=== PATIENT | female | born 1990 | race Caucasian/White ===

== ENCOUNTER 2023-03-23 09:37 | Outpatient (OUT) | payer BC, SELFPAY ==
--- NOTE | 2023-03-23 | XR_ITS ---
The [address] [address] Patient Name: MATT RICKS MRN: [id number] date: 1990 Sex: F Assigned Patient Location: [facility] Current Patient Location: [facility] Accession/Order Number: [id number] Exam Date: 03/23/2023 10:03 Report Date: 03/23/2023 21:36 At the request of: [facility] Procedure: XR foot RT min 3V EXAM: XR ankle RT min 3V, XR foot RT min 3V HISTORY: RIGHT ANKLE PAIN COMPARISON: None. TECHNIQUE: 4 views right foot and 3 views right ankle FINDINGS: There is generalized soft tissue swelling about the ankle. The tibiotalar joint is congruent without large osteochondral defect. No acute fracture at the ankle or the foot. Joint alignment is preserved. Prominent plantar fascia and Achilles tendon enthesophytes are noted. Calcaneal pitch is approximately 10 degrees. XR/XR foot RT min 3V IMPRESSION: No acute osseous abnormality of the right foot or ankle. Pes planus with prominent plantar fascia and Achilles tendon enthesophytes. Electronically authenticated by: NAVJOT SWAN Date: 03/23/2023 21:36
--- NOTE | 2023-03-23 | XR_ITS ---
The [address] [address] Patient Name: MATT RICKS MRN: [id number] date: 1990 Sex: F Assigned Patient Location: [facility] Current Patient Location: [facility] Accession/Order Number: [id number] Exam Date: 03/23/2023 10:03 Report Date: 03/23/2023 21:36 At the request of: [facility] Procedure: XR ankle RT min 3V EXAM: XR ankle RT min 3V, XR foot RT min 3V HISTORY: RIGHT ANKLE PAIN COMPARISON: None. TECHNIQUE: 4 views right foot and 3 views right ankle FINDINGS: There is generalized soft tissue swelling about the ankle. The tibiotalar joint is congruent without large osteochondral defect. No acute fracture at the ankle or the foot. Joint alignment is preserved. Prominent plantar fascia and Achilles tendon enthesophytes are noted. Calcaneal pitch is approximately 10 degrees. XR/XR ankle RT min 3V IMPRESSION: No acute osseous abnormality of the right foot or ankle. Pes planus with prominent plantar fascia and Achilles tendon enthesophytes. Electronically authenticated by: NAVJOT SWAN Date: 03/23/2023 21:36
== END 2023-03-23 09:38 | disposition home or self-care (01) ==
LOC: RAD 09:38
PROVIDERS: Visit Provider Physician Assistant
DX: M25.571 Pain in right ankle and joints of right foot (principal)
CPT/HCPCS: 73610; 73630

== ENCOUNTER 2023-04-17 07:33 | Outpatient (OUT) | payer BC, SELFPAY ==
--- NOTE | 2023-04-17 | XR_ITS ---
The [address] [address] Patient Name: MATT RCIKS MRN: [id number] date: 1990 Sex: F Assigned Patient Location: [facility] Current Patient Location: [facility] Accession/Order Number: [id number] Exam Date: 04/17/2023 07:54 Report Date: 04/17/2023 09:37 At the request of: ALANAN FRANCOIS Procedure: XR abdomen 1V EXAM: XR abdomen 1V. HISTORY: Kidney Stone. COMPARISON: CT abdomen and CT pelvis studies dated 04/15/2022. TECHNIQUE: AP supine view of the abdomen was obtained. FINDINGS: No obvious opaque renal, ureteral or bladder calculus. Bowel gas pattern is grossly nonspecific. Bony structures appear grossly intact. XR/XR abdomen 1V IMPRESSION: No obvious opaque calculus. Previously noted small 2 mm calculus in the right kidney not convincingly demonstrated which is nonspecific, possibly a noncalcified calculus. Electronically authenticated by: JENNIFFER MELVIN Date: 04/17/2023 09:37
== END 2023-04-17 07:34 | disposition home or self-care (01) ==
PROVIDERS: PCP Nurse Practitioner; Visit Provider Urology
DX: N20.0 Calculus of kidney (principal)
CPT/HCPCS: 74018

== ENCOUNTER 2023-08-08 08:00 | Outpatient (OUT) | payer BC, SELFPAY ==
--- OUTSIDE RECORDS SUMMARY | 2023-08-08 08:04 | XMS_ITS | CCD ---
Author Organization [facility] Care Team Providers Care Building Energy Consultant Name Role Phone Luciana Flores Unavailable Dustin Imtiaz B Unavailable MONICA TORRES Attending Unavailable BRIANNA TREJO Referring Unavailable MONICA TORRES Attending Unavailable MONICA TORRES Referring Unavailable AICHHOLZ, URSULA J Primary Care Physician BON, DR KIRTI Felton Consulting Unavailable BON, DR KIRTI Felton Attending Unavailable AICHHOLZ, OBSERVER GRAVITY PROSPECTING URSULA Primary Care Unavailable BON, DR KIRTI Felton Admitting Unavailable LUDMILA WINKLER Consulting Unavailable AICHHOLZ, OBSERVER GRAVITY PROSPECTING URSULA Primary Care Unavailable PAY ., DR ANDERSON Consulting Unavailable PAY ., DR ANDERSON Attending Unavailable PAY ., DR ANDERSON Admitting Unavailable AICHHOLZ, OBSERVER GRAVITY PROSPECTING URSULA Primary Care Unavailable ANGELA ., DR MONDRAGON Consulting Unavailable ANGELA ., DR MONDRAGON Attending Unavailable ANGELA ., DR MONDRAGON Admitting Unavailable AICHHOLZ, OBSERVER GRAVITY PROSPECTING URSULA Attending Unavailable AICHHOLZ, OBSERVER GRAVITY PROSPECTING URSULA Admitting Unavailable AICHHOLZ, OBSERVER GRAVITY PROSPECTING URSULA Primary Care Unavailable AICHHOLZ, OBSERVER GRAVITY PROSPECTING URSULA Consulting Unavailable AICHHOLZ, OBSERVER GRAVITY PROSPECTING URSULA Primary Care Unavailable ANGELA ., DR MONDRGAON Consulting Unavailable ANGELA ., DR MONDRAGON Attending Unavailable ANGELA ., DR MONDRAGON Admitting Unavailable DORIE, DR BORIS Dave Consulting Unavailable AICHHOLZ, OBSERVER GRAVITY PROSPECTING URSULA Attending Unavailable AICHHOLZ, OBSERVER GRAVITY PROSPECTING URSULA Admitting Unavailable AICHHOLZ, OBSERVER GRAVITY PROSPECTING URSULA Primary Care Unavailable AICHHOLZ, OBSERVER GRAVITY PROSPECTING URSULA Consulting Unavailable Ismael Iqbal Consulting Unavailable AICHHOLZ, OBSERVER GRAVITY PROSPECTING URSULA Attending Unavailable AICHHOLZ, OBSERVER GRAVITY PROSPECTING URSULA Admitting Unavailable AICHHOLZ, OBSERVER GRAVITY PROSPECTING URSULA Primary Care Unavailable AICHHOLZ, OBSERVER GRAVITY PROSPECTING URSULA Consulting Unavailable AICHHOLZ, OBSERVER GRAVITY PROSPECTING URSULA Attending Unavailable AICHHOLZ, OBSERVER GRAVITY PROSPECTING URSULA Admitting Unavailable AICHHOLZ, OBSERVER GRAVITY PROSPECTING URSULA Primary Care Unavailable AICHHOLZ, OBSERVER GRAVITY PROSPECTING URSULA Consulting Unavailable KARASIK ., DR FAIRBANKS Consulting Unavailabl e KARASIK ., DR FAIRBANKS Attending Unavailabl e AICHHOLZ, OBSERVER GRAVITY PROSPECTING URSULA Primary Care Unavailable KARASIK ., DR FAIRBANKS Admitting Unavailabl e AICHHOLZ, OBSERVER GRAVITY PROSPECTING URSULA Admitting Unavailable AICHHOLZ, OBSERVER GRAVITY PROSPECTING URSULA Primary Care Unavailable AICHHOLZ, OBSERVER GRAVITY PROSPECTING URSULA Consulting Unavailable AICHHOLZ, OBSERVER GRAVITY PROSPECTING URSULA Attending Unavailable Raj West Attending UnavailRaj Gage Admitting Unavailabl e NO FAMILY, PHYSICIAN Primary Care Unavailable Audi ANGELA Attending Unavailable Audi ANGELA Attending Unavailable ADA SELF Attending Unavailable AICLAMAR, URSULA Attending Unavailable Allergies Allergy Classification Reported Allergen(s) Allergy Type Date of Onset Reaction(s) Facility (7 sources) [facility]; Translations: [STRAWBERRIES] Food Intolerance 12-31-19 Hives, Eruption of skin (disorder) [facility] (3 sources) Penicillin; Translations: [penicillin] Drug Allergy 04-12-20 Unknown (qualifier value) [facility] (1 source) Penicillin V Drug Allergy rash [place] Other (1 source) strawberry allergenic extract Drug Allergy [facility] Repository Medications Current Medications Medication Drug Class(es) Dates Sig (Normalized) Sig (Original) brompheniramine maleate 0.4 mg/ml / dextromethorphan hydrobromide 2 mg/ml / pseudoephedrine hydrochloride 6 mg/ml oral solution (1 source) alpha-Adrenergic Agonist, Uncompetitive H-arhfhu-A-aspartate Receptor Antagonist, Sigma-1 Agonist Start: 04-08-2022 take 10 mL by mouth every six hours Pseudoeph-Bromp hen-DM 30-2-10 MG/5ML 10 mL Orally every 6 hours for 5 days Apr, Active dextromethorphan hydrobromide 1.5 mg/ml / pyrilamine maleate 1.5 mg/ml oral solution (1 source) Uncompetitive S-wjqquf-V-aspartate Receptor Antagonist, Sigma-1 Agonist Start: 08-27-2021 take 10 mL by mouth every eight hours [place] DM 7.5-7.5 MG/5ML 10 mL Orally every 8 hours for 5 days Aug, Active fluticasone propionate 0.05 mg/actuat metered dose nasal spray (1 source) Corticosteroid Start: 08-27-2021 take 1 spray(s) nasal route once daily Flonase Allergy Relief 50 MCG/ACT 1 spray in each nostril Nasally Once a day for 14 day(s) Aug, Active letrozole 2.5 mg oral tablet (3 sources) Aromatase Inhibitor Start: 01-14-2022 End: 01-19-2022 letrozole (FEMARA) 2.5 mg tablet Take 2 tablets by mouth as directed for 5 days. days 3-7 10 tablet 5 01/14/2022 01/19/2022 Active Comment on above: Take 2 tablets by mo ut as directed for 5 days. days 3-7 24 hr metFORMIN hydrochloride 750 mg extended release oral tablet (5 sources) Biguanide Start: 04-04-2022 take 1 mg by mouth once daily metformin 750 mg ER Tab mg tab(s), Oral, Daily, Refills(s) 0 Start Date: 04/04/22 Status: Ordered Start: 01-14-2022 take 2 tablets by mo ut once daily at breakfast metFORMIN ER (GLUCOPHAGE XR) 750 mg 24 hr tablet Take 2 tablets by mouth daily with breakfast. 90 tablet 3 01/14/2022 Active metFORMIN HCl Ac tive Comment on above: Take 2 tablets by mo ut daily with breakfast. mupirocin 0.02 mg/mg topical ointment (1 source) RNA Synthetase Inhibitor Antibacterial Start: 02-03-2020 Mupirocin 2 % 1 application to affected area Externally 2 times a day for 7 days Jan, Active (2 sources) Active Spironolactone (1 source) Aldosterone Antagonist Spironola ctone Active Completed/Discontinued Medications Medication Drug Class(es) Dates Sig (Normalized) Sig (Original) medroxyPROGESTERone acetate 10 mg oral tablet (3 sources) Progestin Start: 2 take 1 tablet by mouth once daily medroxyPROGESTERone (PROVERA) 10 mg tablet Take 1 tablet by mouth once daily. 10 tablet 0 01/14/2022 Active Comment on above: Take 1 tablet by jesus th once daily. naproxen 500 mg oral tablet (1 source) Nonsteroidal Anti-inflammator y Drug Start: 2 take 1 tablet by mouth every twelve hours for pain naproxen 500 mg Tab 60 EA, take 1 tablet by mouth every 12 hours if needed for pain with food, Refills(s) 0 Start Date: 04/04/22 Status: Ordered PNV no.95/ferrous fum/folic ac ( ORAL) (4 sources) PNV no.95/ferrou s fum/folic ac ( ORAL) Take by mouth. 0 Active Comment on above: Take by mouth. Plus Low Iron oral tablet (1 source) Start: 2 take 1 tablet by mouth once daily Plus Low Iron oral tablet Refill(s) 0, 30 EA, take 1 tablet by mouth once daily Start Date: 04/04/22 Status: Ordered Problems Active Problems Problem Classification Problem Date Documented Da te Episodic/Chronic Diabetes mellitus without complication (1 source) Prediabetes 04-04-2022 Episodic Essential hypertension (1 source) Essential (primary) hypertension; Translations: [ESSENTIAL PRIMARY HYPERTENSION] Onset: 11-23-2021 Chronic Female infertility (1 source) Female infertility 04-04-2022 Chronic Headache; including migraine (1 source) Headache; including migraine; Translations: [HEADACHE UNSPECIFIED] Onset: 05-23-2022 Menstrual disorders (4 sources) Primary amenorrhea; Translations: [Primary amenorrhea] Onset: 12-30-2021 Chronic Nonmalignant breast conditions (4 sources) Abscess of the breast and nipple; Translations: [ABSCESS OF THE BREAST AND NIPPLE] Onset: 08-31-2022 Episodic Other endocrine disorders (1 source) Polycystic ovary syndrome 04-04-2022 Chronic Other nutritional; endocrine; and metabolic disorders (1 source) Other obesity due to excess calories; Translations: [OTHER OBESITY D/T EXCESS CALORIES] Onset: 11-23-2021 Chronic Other nutritional; endocrine; and metabolic disorders (1 source) Body mass index (BMI) 50.0-59.9, adult; Translations: [BODY MASS INDEX BMI 50.0-59.9 ADULT] Onset: 11-23-2021 Chronic Residual codes; unclassified (3 sources) Family history of kidney disease; Translations: [Family history of disorders of kidney and ureter] Onset: 04-04-2022 Episodic Residual codes; unclassified (1 source) Family history of renal stone 04-04-2022 Episodic Spondylosis; intervertebral disc disorders; other back problems (1 source) Low back pain 04-04-2022 Episodic Unclassified (1 source) Asymptomatic microscopic hematuria 04-04-2022 Unclassified (1 source) CONTACT W/AND (SUSP) EXPOS COVID-19; Translations: [CONTACT W/AND (SUSP) EXPOS COVID-19] Onset: 05-23-2022 Unclassified (1 source) H54.61 - Unqualified visual loss, right eye, normal vision left eye; Translations: [H54.61 - Unqualified visual loss, right eye, normal vision left eye] Onset: 09-11-2020 Viral infection (1 source) Verruca vulgaris 04-04-2022 Episodic Past or Other Problems Problem Classification Problem Date Documented Date Episodic/Chronic Calculus of urinary tract (1 source) Calculus of kidney; Translations: [CALCULUS OF KIDNEY] Onset: 04-21-2022 Episodic Fluid and electrolyte disorders (1 source) Dehydration; Translations: [DEHYDRATION] Onset: 05-23-2022 Episodic Genitourinary symptoms and ill-defined conditions (9 sources) Microscopic hematuria; Translations: [Asymptomatic microscopic hematuria] Onset: 04-04-2022 Episodic Immunizations and screening for infectious disease (2 sources) Contact with and (suspected) exposure to other viral communicable diseases; Translations: [Encounter for screening for human papillomavirus (HPV)] Onset: 08-27-2021 Resolved: 08-27-2021 Episodic Nausea and vomiting (4 sources) Nausea with vomiting, unspecified; Translations: [NAUSEA WITH VOMITING UNSPECIFIED] Onset: 05-13-2022 Episodic Nonspecific chest pain (4 sources) Chest pain, unspecified; Translations: [CHEST PAIN UNSPECIFIED] Onset: 11-22-2021 Episodic Other aftercare (1 source) Other senior living (current) drug therapy; Translations: [OTH SNF CURRENT DRUG THERAPY] Onset: 05-23-2022 Episodic Other aftercare (1 source) group home (current) use of oral hypoglycemic drugs; Translations: [CARPENTER'S ASSISTANT USE ORAL HYPOGLYCEMIC DX] Onset: 05-23-2022 Episodic Other screening for suspected conditions (not mental disorders or infectious disease) (4 sources) Encounter for screening for malignant neoplasm of cervix; Translations: [ENC SCREENING MALIG NEOPLASM CERV] Onset: 10-19-2021 Episodic Other upper respiratory infections (1 source) Acute upper respiratory infection, unspecified Onset: 08-27-2021 Resolved: 08-27-2021 Episodic Residual codes; unclassified (4 sources) Other specified health status; Translations: [OTHER SPECIFIED HEALTH STATUS] Onset: 11-30-2021 Episodic Screening and history of mental health and substance abuse codes (1 source) Personal history of nicotine dependence; Translations: [PERSONAL HISTORY OF NICOTINE DEPEND] Onset: 04-21-2022 Episodic Unclassified (1 source) Cough R05.9 Viral infection (1 source) COVID-19 Results Test Name Value Interpretation Reference Range Facility Patient Educationon 04-21-20 23 Patient Education Urology Hematuria, Adult Hematuria is blood in the urine. Blood may be visible in the urine, or it may be identified with a test. This condition can be caused by infections of the bladder, urethra, kidney, or prostate. Other possible causes include: ? Kidney stones. ? Cancer of the urinary tract. ? Too much calcium in the urine. ? Conditions that are passed from parent to child (inherited conditions). ? Exercise that requires a lot of energy. Infections can usually be treated with medicine, and a kidney stone usually will pass through your urine. If neither of these is the cause of your hematuria, more tests may be needed to identify the cause of your symptoms. It is very important to tell your health care provider about any blood in your urine, even if it is painless or the blood stops without treatment. Blood in the urine, when it happens and then stops and then happens again, can be a symptom of a very serious condition, including cancer. There is no pain in the initial stages of many urinary cancers. Follow these instructions at home: Medicines ? Take asid-dyc-fodvzps and prescription medicines only as told by your health care provider. ? If you were prescribed an antibiotic medicine, take it as told by your health care provider. Do not stop taking the antibiotic even if you start to feel better. Eating and drinking ? Drink enough fluid to keep your urine pale yellow. It is recommended that you drink 3?4 quarts (2.8?3.8 L) a day. If you have been diagnosed with an infection, drinking cranberry juice in addition to large amounts of water is recommended. ? Avoid caffeine, tea, and carbonated beverages. These tend to irritate the bladder. ? Avoid alcohol because it may irritate the prostate (in males). General instructions ? If you have been diagnosed with a kidney stone, follow your health care provider's instructions about straining your urine to catch the stone. ? Empty your bladder often. Avoid holding urine for long periods of time. ? If you are female: ? After a bowel movement, wipe from front to back and use each piece of toilet paper only once. ? Empty your bladder before and after sex. ? Pay attention to any changes in your symptoms. Tell your health care provider about any changes or any new symptoms. ? It is up to you to get the results of any tests. Ask your health care provider, or the department that is doing the test, when your results will be ready. ? Keep all follow-up visits. This is important. Contact a health care provider if: ? You develop back pain. ? You have a fever or chills. ? You have nausea or vomiting. ? Your symptoms do not improve after 3 days. ? Your symptoms get worse. Get help right away if: ? You develop severe vomiting and are unable to take medicine without vomiting. ? You develop severe pain in your back or abdomen even though you are taking medicine. ? You pass a large amount of blood in your urine. ? You pass blood clots in your urine. ? You feel very weak or like you might faint. ? You faint. Summary ? Hematuria is blood in the urine. It has many possible causes. ? It is very important that you tell your health care provider about any blood in your urine, even if it is painless or the blood stops without treatment. ? Take dgun-bek-nqndqlz and prescription medicines only as told by your health care provider. ? Drink enough fluid to keep your urine pale yellow. This information is not intended to replace advice given to you by your health care provider. Make sure you discuss any questions you have with your health care provider. Document Revised: 12/23/2020 Document Reviewed: 12/23/2020 [employer] Patient Education ? 2022 [employer] Dennys [facility] Urology Office/Clinic Noteon 04-21-2023 Urology Office/Clinic Note Chief Complaint 1yr KUB HPI Staff 1yr KUB DX: Microscopic Hematuria & Fam Hx of Kidney Disease S/P Cysto 04/18/22 NEG CTU 04/15/22 KUB 04/17/23 Denies flank pain. Denies visible blood since last encounter. Denies all urinary symptoms. History of Present Illness Tests reviewed: reviewed UA and KUB, CTU I have reviewed the previous health record information and history for this patient from Dr. Angela. I have reviewed and verified the staff HPI to be accurate for this encounter. There have been no associated fever, chills, flank pain, or blood in the urine. Denies any urinary infections since last encounter. Review of Systems PHQ Score Initial Depression Screen Score: 0 SCORE ROS - Provider Constitutional: denies weight loss, denies hot flashes. Eyes: denies eye problems. Gastrointestinal: denies nausea, denies vomiting. Cardiovascular: denies chest pain or angina. Integumentary: no dryness Musculoskeletal: denies musculoskeletal symptoms. ENMT: denies otolaryngeal symptoms. Respiratory: no shortness of breath. Heme/Lymph: denies easy bleeding tendency, denies easy bruising tendency. Psychiatric: no confusion, no anxiety. Genitourinary: See HPI. Physical Exam Vitals & Measurements HR: 68(Peripheral) RR: 16 BP: 135/80 HT: 64 in HT: 163 cm WT: 136 kg WT: 299.2 lb BMI: 51.19 General Appearance: alert , no acute distress, well nourished, well developed female. Genitourinary: bladder nonpalpable, no flank pain. Assessment/Plan 1. Kidney stone (N20.0: Calculus of kidney) KUB done 01/17/22 shows no urinary tract calculi. CT Urogram 04/15/22 punctate 2 mm lower pole right nephrolith. No hydro. Current KUB 04/17/23 previously noted small 2 mm calculus in the right kidney not convincingly demonstrated which is nonspecific, possibly a noncalcified calculus. Family history of kidney stones. Discussed w/ pt there is a chance she may of passed the stone. Will repeat KUB in 1 year. Continue adequate hydration. 2. Asymptomatic microscopic hematuria (R31.21: Asymptomatic microscopic hematuria) UA 12/21/21 shows trace-lysed blood, 2-5 RBCs. UA 07/26/22 shows trace-intact blood, 2-5 RBCs. S/p cysto 04/18/22 neg for b.t. or lesions. Urine cytology 03/2022 negative. UA today negative. Denies visible blood in urine. 3. Family history of kidney disease (Z84.1: Family history of disorders of kidney and ureter) Pt's father has kidney disease and had a kidney transplant in October. Follow-up With When Contact Information ALESSANDRO EGAN, Audi [place], [address] [place] [address]- Additional Instructions: 1 yr w/ KUB Patient Education Hematuria, Adult I, Armida Moreira, personally scribed for Dr. Angela on 04/21/2023 10:37:39. . Documentation recorded by the scribe, Armida Moreira, accurately reflects the services(s) I performed and decisions made by me. Authenticated by Dr. Angela on 04/21/2023 10:39:54. Problem List/Past Medical History Ongoing Asymptomatic microscopic hematuria Family history of kidney disease Family history of kidney stones Female infertility Kidney stone Lumbar back pain Oligomenorrhea PCOS (polycystic ovarian syndrome) Pre-diabetes Verruca vulgaris Historical No qualifying data Procedure/Surgical History Cystoscopy (04/18/2023). Medications No active medications Allergies Strawberries (Rash) penicillin (Unknown) Social History Tobacco Former smoker, quit more than 30 days ago Tobacco Use:. Never Smokeless Tobacco Use:. Cigarettes, Household tobacco concerns: No. Yes, 04/21/2023 Family History Alcoholism: Sister. Hypertension: Mother and Father. Kidney disease: Father. Kidney stone: Sister. Migraine: Mother and Sister. Immunizations Vaccine Date Status Comments SARS-CoV-2 (COVID-19) mRNA BNT-162b2 vax 08/30/2020 Recorded 2022-04-04: TPVAL SARS-CoV-2 (COVID-19) mRNA BNT-162b2 vax 08/07/2020 Recorded 2022-04-04: TPVAL measles/mumps/rubella virus vaccine 09/21/2001 Recorded Lab Results Ambulatory Point of Care Results Bilirubin Urine Dipstick: Negative (04/21/23 09:54:00) Blood Urine Dipstick: Negative (04/21/23 09:54:00) Glucose Urine Dipstick: Negative (04/21/23 09:54:00) Ketones Urine Dipstick: Negative (04/21/23 09:54:00) Leukocytes Urine Dipstick: Negative (04/21/23 09:54:00) Nitrite Urine Dipstick: Negative (04/21/23 09:54:00) Protein Urine Dipstick: Trace (04/21/23 09:54:00) Specific Venus Urine Dipstick: >=1.030 (04/21/23 09:54:00) Urine Appearance Urine Dipstick: Clear (04/21/23 09:54:00) Urine Color Urine Dipstick: Yellow (04/21/23 09:54:00) Urobilinogen Urine Dipstick: Normal 0.2-1 EU/dl (04/21/23 09:54:00) pH Urine Dipstick: 6 (04/21/23 09:54:00) Normal [facility] Comment on above: Result Comment: Elec tronically Signed By: Audi ANGELA MD\.br\Date and Time Signed: 04/21/23 10:39 EST\.br\Electronically Co-Signed By: Armida Moreira\.br\Date and Time Co-Signed: 04/21/23 10:38 EST RAD - MISCon 04-19-2023 RAD - MISC [id number] Normal [facility] Covid-19 PCR (CVDTB)on 09-05 SARS-CoV-2 (COVID-19) RNA CRISTEL+probe Ql (Unsp spec) Not detected Normal NOT DETECTED [facility] Comment on above: Performed By: #### C VDAGS #### [facility] [address] [place] [address] Dr. Alexei Gonzales INFLUENZA A AND B AGon 09-20 INFLUANEGH SEE BELOW Normal [facility] Comment on above: Result Comment: Nega tive for Flu A protein angiten. Infection due to Flu A cannot be ruled out. Flu A angiten in the sample may be below the detection limit of the test. Performed By: #### I NFLUAB #### [facility] [address] [place] [address] Dr. Alexei Gonzales [facility] SEE BELOW Normal [facility] Comment on above: Result Comment: Nega tive for Flu B protein antigen. Infection due to Flu B cannot be ruled out. Flu B antigen in the sample may be below the detection limit of the test. Performed By: #### I NFLUAB #### [facility] [address] [place] [address] Dr. Alexei Gonzales INFLUENZA A AG Negative Normal NEGATIVE SEE COMMENT [facility] Comment on above: Performed By: #### I NFLUAB #### [facility] [address] [place] [address] Dr. Alexei Gonzales INFLUENZA B AG Negative Normal NEGATIVE SEE COMMENT [facility] Comment on above: Performed By: #### I NFLUAB #### [facility] [address] [place] [address] Dr. Alexei Gonzales SYMPTOMATIC COVID-19 ANTIGEN on 09-20-2022 EUA Statement SEE BELOW Normal [facility] Comment on above: Result Comment: This test has not been FDA cleared or approved, but has been authorized by the FDA under an Emergency Use Authorization (EUA) for use by authorized laboratories certified under CLIA that meet the requirements to perform moderate or high complexity testing. This test has been authorized only for the detection of proteins from SARS-CoV-2, not for any other viruses or pathogens. The emergency use of this test is authorized for the duration of the declaration that circumstances exist justifying the authorization of emergency use of in vitro diagnostic tests for detection and/or diagnosis of Covid-19 under section 564(b)(1) of the Act, 21 U.S.C. 360bbb-3(b)(1), unless the declaration is terminated or authorization is revoked sooner. Performed By: #### C VDAGS #### [facility] [address] [place] [address] Dr. Alexei Gonzales SARS-CoV-2 (COVID-19) RNA CRISTEL+probe Ql (Unsp spec) Negative Normal NEGATIVE [facility] Comment on above: Performed By: #### C VDAGS #### [facility] [address] [place] [address] Dr. Alexei Gonzales CULTURE WOUNDon 08-31-2022 CULTURE WOUND Culture Observations : ANAEROBE PRESENT. Isolate 1 Peptoniphilus lacrimalis Light growth of Normal [facility] Comment on above: Performed By: #### C VDAGS #### [facility] [address] [place] [address] Dr. Alexei Gonzales CBC AUTO DIFFon 05-13-2022 BASO # 0.1 103/ul Normal 0.0-0.1 [facility] Comment on above: Performed By: #### C BC #### [facility] [address] [place] [address] Dr. Alexei Gonzales Basophils/100 WBC (Bld) 0.7 % Normal 0.2-2.0 [facility] Comment on above: Performed By: #### C BC #### [facility] [address] [place] [address] Dr. Alexei Gonzales EO # 0.0 103/ul Normal 0.0-0.7 [facility] Comment on above: Performed By: #### C BC #### [facility] [address] [place] [address] Dr. Alexei Gonzales Eosinophils/100 WBC (Bld) 0.1 % Critically low 0.9-7.0 [facility] Comment on above: Performed By: #### C BC #### [facility] [address] [place] [address] Dr. Alexei Gonzales Erythrocyte distribution width (RBC) [Ratio] 14.6 % Normal 11.0-15.0 [facility] Comment on above: Performed By: #### C BC #### [facility] [address] [place], [place] [address] Dr. Alexei Gonzales Hematocrit (Bld) [Volume fraction] 38.5 % Normal 36.0-48.0 [facility] Comment on above: Performed By: #### C BC #### [facility] [address] [place] [address] Dr. Alexei Gonzales Hemoglobin (Bld) [Mass/Vol] 13.0 g/dL Normal 12.0-16.0 [facility] Comment on above: Performed By: #### C BC #### [facility] [address] [address] [address] Alexei Gonzales IG # 0.04 10e3/ul Critically high 0.00-0.03 [facility] Comment on above: Performed By: #### C BC #### [facility] [address] [address] [address] Alexei Gonzales IG % 0.5 % Normal 0.0-0.5 [facility] Comment on above: Performed By: #### C BC #### [facility] [address] [place] [address] Dr. Alexei Gonzales LYMPH # 0.3 103/ul Critically low 1.2-3.8 [facility] Comment on above: Performed By: #### C BC #### [facility] [address] [place] [address] Dr. Alexei Gonzales Lymphocytes/100 WBC (Bld) 4.6 % Critically low 20.5-60.0 [facility] Comment on above: Performed By: #### C BC #### [facility] [address] [place] [address] Dr. Alexei Gonzales MANUAL DIFF REQ NO Normal [facility] Comment on above: Performed By: #### C BC #### [facility] [address] [place] [address] Dr. Alexei Gonzales MCH (RBC) [Entitic mass] 27.0 pg Normal 26.7-34.0 [facility] Comment on above: Performed By: #### C BC #### [facility] [address] [place] [address] Dr. Alexei Gonzales MCHC (RBC) [Mass/Vol] 33.8 g/dL Normal 29.9-35.2 [facility] Comment on above: Performed By: #### C BC #### [facility] [address] [place] [address] Dr. Alexei Gonzales MCV (RBC) [Entitic vol] 79.9 fL Critically low 81.0-99.0 [facility] Comment on above: Performed By: #### C BC #### [facility] [address] [place] [address] Dr. Alexei Gonzales MONO # 0.7 103/ul Normal 0.3-0.8 [facility] Comment on above: Performed By: #### C BC #### [facility] [address] [place] [address] Dr. Alexei Gonzales Monocytes/100 WBC (Bld) 10.1 % Normal 1.7-12.0 [facility] Comment on above: Performed By: #### C BC #### [facility] [address] [place] [address] Dr. Alexei Gonzales NEUT # 6.2 103/ul Normal 1.4-6.5 [facility] Comment on above: Performed By: #### C BC #### [facility] [address] [place] [address] Dr. Alexei Gonzales Neutrophils/100 WBC (Bld) 84.0 % Critically high 43.0-75.0 [facility] Comment on above: Performed By: #### C BC #### [facility] [address] [place] [address] Dr. Alexei Gonzales Platelet mean volume (Bld) [Entitic vol] 10.2 fL Normal 9.5-13.5 [facility] Comment on above: Performed By: #### C BC #### [facility] [address] [place] [address] Dr. Alexei Gonzales PLT 266 103/ul Normal 150-450 [facility] Comment on above: Performed By: #### C BC #### [facility] [address] [place] [address] Dr. Alexei Gonzales RBC 4.82 106/ul Normal 4.20-5.40 [facility] Comment on above: Performed By: #### C BC #### [facility] [address] [place] [address] Dr. Alexei Gonzales WBC 7.3 103/ul Normal 4.0-11.0 [facility] Comment on above: Performed By: #### C BC #### [facility] [address] [place] [address] Dr. Alexei Gonzales Covid-19 PCR ([facility])on SARS-CoV-2 (COVID-19) RNA CRISTEL+probe Ql (Unsp spec) Not detected Normal NOT DETECTED [facility] Comment on above: Result Comment: This test is not yet approved or cleared by the [place] FDA. When there are no FDA-approved or cleared tests available, and other criteria are met, FDA can make tests available under an emergency access mechanism called an Emergency Use Authorization (EUA). The EUA for this test is supported by the [employer] Intern of Health and Human Service's (HHS's) declaration that circumstances exist to justify the emergency use of in vitro diagnostics for the detection and/or diagnosis of the virus that causes COVID-19. This EUA will remain in effect (meaning this test can be used) for the duration of the COVID-19 declaration justifying emergency of IVDs, unless it is terminated or revoked by FDA (after which the test may no longer be used). When diagnostic testing is negative, the possibility of a false negative should be considered in the context of a patient's recent exposures and the presence of clinical signs and symptoms consistent with SARS-CoV-2. Performed By: #### C BC #### [facility] [address] [place] [address] Dr. Alexei Gonzales GROUP A STREP CULTUREon S. pyogenes Ag Ql (Unsp spec) Culture Observations: NEGATIVE FOR GROUP A STREPTOCOCCUS. Normal [facility] Comment on above: Performed By: #### C VDAGS #### [facility] [address] [place] [address] Dr. Alexei Gonzales INFLUENZA A AND B AGon 05-13 INFLUANEGH SEE BELOW Normal [facility] Comment on above: Result Comment: Nega tive for Flu A protein angiten. Infection due to Flu A cannot be ruled out. Flu A angiten in the sample may be below the detection limit of the test. Performed By: #### C BC #### [facility] [address] [place] [address] Dr. Alexei Gonzales [facility] SEE BELOW Normal [facility] Comment on above: Result Comment: Nega tive for Flu B protein antigen. Infection due to Flu B cannot be ruled out. Flu B antigen in the sample may be below the detection limit of the test. Performed By: #### C BC #### [facility] [address] [place] [address] Dr. Alexei Gonzales INFLUENZA A AG Negative Normal NEGATIVE SEE COMMENT [facility] Comment on above: Performed By: #### C BC #### [facility] [address] [place] [address] Dr. Alexei Gonzales INFLUENZA B AG Negative Normal NEGATIVE SEE COMMENT [facility] Comment on above: Performed By: #### C BC #### [facility] [address] [place] [address] Dr. Alexei Gonzales PREG HCG QUALon 05-13-2022 , QUAL Negative Normal NEGATIVE [facility] Comment on above: Performed By: #### C VDAGS #### [facility] [address] [place] [address] Dr. Alexei Gonzales PROF 14(COMP METB)on 023 Albumin [Mass/Vol] 3.6 g/dL Normal 3.4-5.0 [facility] Comment on above: Performed By: #### C MP #### [facility] [address] [place] [address] Dr. Alexei Gonzales Albumin/Globulin [Mass ratio] 0.8 {ratio} Normal [facility] Comment on above: Performed By: #### C MP #### [facility] [address] [place] [address] Dr. Alexei Gonzales ALP [Catalytic activity/Vol] 95 U/L Normal 46-116 [facility] Comment on above: Performed By: #### C MP #### [facility] [address] [place] [address] Dr. Alexei Gonzales ALT [Catalytic activity/Vol] 62 U/L Critically high 14-59 [facility] Comment on above: Performed By: #### C MP #### [facility] [address] [place] [address] Dr. Alexei Gonzales Anion gap [Moles/Vol] 11.2 mmol/L Normal [facility] Comment on above: Performed By: #### C MP #### [facility] [address] [address] [address] Alexei Gonzales AST [Catalytic activity/Vol] 44 U/L Critically high 15-37 [facility] Comment on above: Performed By: #### C MP #### [facility] [address] [address] [address] Alexei Gonzales Bilirubin [Mass/Vol] 0.3 mg/dL Normal 0.2-1.0 [facility] Comment on above: Performed By: #### C MP #### [facility] [address] [address] [address] Alexei Gonzales Calcium [Mass/Vol] 8.9 mg/dL Normal 8.5-10.1 [facility] Comment on above: Performed By: #### C MP #### [facility] [address] [address] [address] Alexei Gonzales Chloride [Moles/Vol] 100 mmol/L Normal 98-107 [facility] Comment on above: Performed By: #### C MP #### [facility] [address] [address] [address] Alexei Gonzales CO2 [Moles/Vol] 26.4 mmol/L Normal 21.0-32.0 [facility] Comment on above: Performed By: #### C MP #### [facility] [address] [address] [address] Alexei Gonzales Creatinine [Mass/Vol] 0.98 mg/dL Normal 0.55-1.02 [facility] Comment on above: Performed By: #### C MP #### [facility] [address] [address] [address] Alexei Gonzales EGFR-AF EMIRATI >60 Normal >=60 [facility] Comment on above: Performed By: #### C MP #### [facility] [address] [address] [address] Alexei Gonzales EGFR-NON AF EMIRATI >60 Normal >=60 [facility] Comment on above: Performed By: #### C MP #### [facility] [address] [address] [address] Alexei Gonzales Globulin (S) [Mass/Vol] 4.3 g/dL Normal [facility] Comment on above: Performed By: #### C MP #### [facility] [address] [address] [address] Alexei Gonzales Glucose [Mass/Vol] 125 mg/dL Critically high 74-[address] [facility] Comment on above: Performed By: #### C MP #### [facility] [address] [address] [address] Alexei Gonzales Potassium [Moles/Vol] 3.6 mmol/L Normal 3.5-5.1 [facility] Comment on above: Performed By: #### C MP #### [facility] [address] [address] [address] Alexei Gonzales Protein [Mass/Vol] 7.9 g/dL Normal 6.4-8.2 [facility] Comment on above: Performed By: #### C MP #### [facility] [address] [address] [address] Alexei Gonzales Sodium [Moles/Vol] 134 mmol/L Critically low 136-145 [facility] Comment on above: Performed By: #### C MP #### [facility] [address] [address] [address] Alexei Gonzales Urea nitrogen [Mass/Vol] 12.0 mg/dL Normal 7.0-18.0 [facility] Comment on above: Performed By: #### C MP #### [facility] [address] [address] [address] Alexei Gonzales Urea nitrogen/Creatinin e [Mass ratio] 12.2 mg/mg Normal [facility] Comment on above: Performed By: #### C MP #### [facility] [address] [address] [address] Alexei Gonzales STREPT SCREENon 05-13-2022 STREP SCREEN A Negative Normal NEGATIVE [facility] Comment on above: Performed By: #### C VDAGS #### [facility] [address] [address] [address] ABD/PELV WO W CONon 04-15 CT ABD/PELV WO W CON EXAMINATION: CT ABD/PELV WO W CON, 04/15/2022 8:47 AM EST HISTORY: Microscopic hematuria COMPARISON: 11/16/2020 TECHNIQUE: CT scan of the abdomen and pelvis was performed without and with IV contrast. CT dose reduction technique was used, including Automated Exposure Control. FINDINGS: LUNG BASES: No visible pulmonary or pleural disease. LIVER: Diffuse hypoattenuation consistent with hepatic steatosis BILIARY: Layering hyperdensity likely gallbladder sludge without CT evidence of acute cholecystitis PANCREAS: No lesion, fluid collection, ductal dilatation, or atrophy. SPLEEN: No enlargement or focal lesion. ADRENALS: No mass or enlargement. KIDNEYS: Punctate 2 mm lower pole right nephrolith. No hydronephrosis or obstructing nephrolithiasis BOWEL/MESENTERY: No visible mass, obstruction, or bowel wall thickening. Normal appendix AORTA/VASCULAR: No aneurysm or dissection. RETROPERITONEUM: No mass or adenopathy. LYMPH NODES: No adenopathy. URINARY BLADDER: No visible focal wall thickening, lesion, or calculus. PELVIC ORGANS: No visible mass. Pelvic organs appropriate for patient age. ABDOMINAL WALL: No mass or hernia. BONES: No bony lesion or fracture. OTHER: Negative. IMPRESSION: No acute abnormality. No CT explanation for the patient's hematuria Electronically authenticated by: BORIS OSHEA Date: 2022-04-15 11:19 Normal [facility] COVID/FLU/RSV RT-PCRon 04-08 SARS-CoV-2 (COVID-19) RNA CRISTEL+probe Ql (Unsp spec) Positive [facility] Other COVID/FLU/RSV RT-PCR Negative [facility] Telephone (REITW) -- MATT RICKS ([id number]) 1990 F Date Time Provider Department 01/25/22 MONICA TORRES During your visit today, we recorded the following information about you: Erica Oscar RN 01/25/2022 9:52 AM Signed Routing to Non Jose L ivf Pool to refuse provera refill Just filled 1 weeks ago Erica Oscar RN January 25, 2022 9:52 AM Dilcia Dawn APRN.[facility] 01/25/2022 10:09 AM Signed Patient's request for medication has been refused. Requested Prescriptions Refused Prescriptions Disp Refills medroxyPROGESTERone (PROVERA, CYCRIN) 10 mg tablet [Pharmacy Med Name: MEDROXYPROGESTERONE 10 MG TAB] 10 tablet 0 Sig: take 1 tablet by mouth once daily Refused By: DILCIA DAWN Reason for Refusal: A Refill not appropriate Allergies As of Date: 01/25/2022 Noted Allergy Reaction STRAWBERRIES 12/30/2021 4 - Hives Date Reviewed: 12/30/2021 Reviewed by: Cinthia Price Ma - Fully Assessed Reason for Visit: Refill Request [94] Primary Visit Diagnosis:Encounter for medication refill [Z76.0] Prescriptions as of 01/25/2022 - letrozole (FEMARA) 2.5 mg tablet Take 2 tablets by mouth as directed for 5 days. days 3-7 - medroxyPROGESTERone (PROVERA) 10 mg tablet Take 1 tablet by mouth once daily. - metFORMIN ER (GLUCOPHAGE XR) 750 mg 24 hr tablet Take 2 tablets by mouth daily with breakfast. - PNV no.95/ferrous fum/folic ac ( ORAL) Take by mouth. Problem List As Of Date: 01/25/2022 (None) Encounter Status:Closed by DILCIA DAWN on 01/25/22 [facility] Don 01-18-2022 [facility] Telephone (WHQ) -- MATT RICKS ([id number]) 1990 F Date Time Provider Department 01/18/22 LACEY TEMPLE During your visit today, we recorded the following information about you: Luciana Dennis 01/18/2022 10:31 AM Signed MD Lay Lau Whi A10 Scheduling Pool New PCOS patient for clinic Call to patient, no answer. Left voicemail for patient to call the office so that we may assist with scheduling and appointment with Dr. Kwan for PCOS clinic. Luciana Dennis Allergies As of Date: 01/18/2022 Noted Allergy Reaction STRAWBERRIES 12/30/2021 4 - Hives Date Reviewed: 12/30/2021 Reviewed by: Cinthia Price Ma - Fully Assessed Reason for Visit: Appointment [186] Prescriptions as of 01/18/2022 - letrozole (FEMARA) 2.5 mg tablet Take 2 tablets by mouth as directed for 5 days. days 3-7 - medroxyPROGESTERone (PROVERA) 10 mg tablet Take 1 tablet by mouth once daily. - metFORMIN ER (GLUCOPHAGE XR) 750 mg 24 hr tablet Take 2 tablets by mouth daily with breakfast. - PNV no.95/ferrous fum/folic ac ( ORAL) Take by mouth. Problem List As Of Date: 01/18/2022 (None) Encounter Status:Closed by LUCIANA DENNIS on 01/18/22 Normal [facility] XR KUB 1 VIEWon 01-17-2022 XR KUB 1 VIEW EXAMINATION: XR KUB 1 VIEW HISTORY: Microscopic hematuria COMPARISON: No relevant comparison available. FINDINGS: KIDNEY/URETER - RIGHT: No visible renal or ureteral calcifications. KIDNEY/URETER - LEFT: No visible renal or ureteral calcifications. PELVIS: No visible ureteral stones. BOWEL: No abnormal dilation or deviation. BONES: No acute abnormality. OTHER: Negative. No abnormal gaseous collections. IMPRESSION: 1. No visible urinary tract calculi. Electronically authenticated by: ISMAEL IQBAL Date: 2022-01-17 13:05 Normal [facility] 25(OH)D3 [facility] 25-hydroxyvitamin D3 [Mass/Vol] 23.4 ng/mL Low 31.0-80.0 [facility] Comment on above: Order Comment: Speci men Type: BLOOD SPECIMEN Ordering Facility: [facility] Address: [address] [place] [address] Result Comment: Clas sification of 25 [place] Vitamin D status: Deficiency/Insufficiency: < or = 30 ng/ml. Sufficiency/Optimal Levels: 31-80 ng/mL Toxicity: > 100 ng/mL. Test performed by chemiluminescent immunoassay. Performed By: #### V ZVG2, 1989-07, XOCHITL #### [facility] CLIA [id number] [address] [place] [address] [place] CNOVon 12-30-2021 CNOV Office Visit (REISO) -- MATT RICKS ([id number]) 1990 F Date Time Provider Department 12/30/21 1:00 PM MONICA TORRES During your visit today, we recorded the following information about you: Blood pressure Weight Height Last Period 11672 136.1 kg 1.626 m 06/17/21 Monica Torres MD 12/30/2021 1:57 PM Signed Consultation requested by Dr. Longo for an opinion regarding infertility. My final recommendations will be communicated back to the requesting physician by way of shared Medical record or letter to requesting physician via US mail. 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 Her is 28 years old and never established a . She has amenorrhea. LMP 01/26. Negative Provera withdrawal 09/26. She get headaches but denies visual changes, hirsutism, galactorrhea or hot flushes. She was tx'd w/ Clomid 50 AND metformin x 1 cycle w/o ovulation. US - >1 yr ago, nl but left ovary not seen per pt MEDICAL HISTORY - negative MEDICATIONS: PNV SURGICAL HISTORY - negative FAMILY HISTORY - father: s/p kidney transplant (? cause) HTN SOCIAL HISTORY - no smoking or etoh PAP - 10/27 normal per pt ASSESSMENT - primary infertility, amenorrhea PLAN - TANDS, rubella, varicella, TSH, prolactin, testosterone, FSH, E2, a1c, vit D briefly discussed tx options based on if labs are c/w anovulation, hypothalamic amenorrhea or POI I spent a total of 30 minutes which included preparing to see the patient, [id number] patient care, completing clinical documentation, obtaining and/or reviewing separately obtained history, counseling and educating the patient/family/caregiver, and ordering medications, tests, or procedures. Monica Torres MD letter to Dr. Longo Referring Provider: BRIANNA TREJO [[id number]] Allergies As of Date: 12/30/2021 Noted Allergy Reaction STRAWBERRIES 12/30/2021 4 - Hives Date Reviewed: 12/30/2021 Reviewed by: Cinthia Price Ma - Fully Assessed Reason for Visit: New Patient [172] Infertility [285] Primary Visit Diagnosis:Primary amenorrhea [N91.0] Order(s):TSH BLD [SQTSH] Order #: [id number] FUTURE PROLACTIN BLD [SQPROL] Order #: [id number] FUTURE RUBELLA IGG AB [SQRUBQNT] Order #: [id number] FUTURE VARICELLA ZOSTER IGG [SQVZVG] Order #: [id number] FUTURE VITAMIN D 25 HYDROXY [SQVITD] Order #: [id number] FUTURE TYPE + SCREEN [SQTSCR] Order #: [id number] FUTURE FSH BLD [SQFSH] Order #: [id number] FUTURE ESTRADIOL-17B BLD [SQE2] Order #: [id number] FUTURE HGB A1C [WFPLX4P] Order #: [id number] FUTURE Prescriptions as of 12/30/2021 - PNV no.95/ferrous fum/folic ac ( ORAL) Take by mouth. Problem List As Of Date: 12/30/2021 (None) Encounter Status:Closed by MONICA TORRES on 12/30/21 Normal [facility] Estradiol SerPl-mCncon 12-30 E2 [Mass/Vol] 60 pg/mL Normal [facility] Comment on above: Order Comment: Speci men Type: BLOOD SPECIMEN Ordering Facility: [facility] Address: [address] [place], [place] [id number] Result Comment: This test is not suitable for patients receiving treatment with the drug Fulvestrant (Faslodex). The drug causes an interference leading to falsely elevated estradiol results. Menstrual cycle Estradiol reference ranges: Follicular : < 234 pg/mL Ovulation : 41 to 398 pg/mL Luteal : < 342 pg/mL Estradiol reference ranges vary by gestational period: First trimester : 154 to 3243 pg/mL Second trimester : 1561 to 42014 pg/mL Third trimester : 8285 to >52733 pg/mL Post-menopausal Estradiol reference range: < 41 pg/mL Reference: 1. Estradiol - E2 (Estradiol III) [package insert V 3.0 Vincentian]. [facility], [place], [place], October 2015. Performed By: #### 3 016-3, 45823-2, 2243-4, 2842-3 #### [facility] CLIA [id number] [address] [place] [address] [place] FSH SerPl-aCncon 12-30-2021 Follitropin Qn 6.4 m[IU]/mL Normal See comment [facility] Comment on above: Order Comment: Speci men Type: BLOOD SPECIMEN Ordering Facility: [facility] Address: [address] [place], [place] [id number] Result Comment: Refe rence range: Follicular: 3.5-12.5 mIU/mL Midcycle: 4.7-21.5 mIU/mL Luteal: 1.7-7.7 mIU/mL [place]: 25.8-134.8 mIU/mL Performed By: #### 3 016-3, 45954-2, 2243-4, 2842-3 #### [facility] CLIA [id number] [address] [place] [address] [place] HbA1c (Bld)on 12-30-2021 Average glucose Estimated from glycated hemoglobin (Bld) [Mass/Vol] 120 mg/dL Normal [facility] Comment on above: Order Comment: Rayne putnam Type: BLOOD SPECIMEN Ordering Facility: [facility] Address: [address] [place] [address] Result Comment: eAG: (Estimated average glucose) is a calculated value from HgbA1c and is claims representative of the average blood glucose level in the last 2-3 month period. Performed By: #### 5 5454-3 #### [facility] CLIA [id number] [address] [place] [address] [place] HbA1c (Bld) [Mass fraction] 5.8 % High 4.3-5.6 [facility] Comment on above: Order Comment: Rayne putnam Type: BLOOD SPECIMEN Ordering Facility: [facility] Address: [address] [place] [address] Result Comment: [place] Diabetes Association guidelines indicate that patients with HgbA1c in the range 5.7-6.4% are at increased risk for development of diabetes, and intervention by lifestyle modification may be beneficial. HgbA1c greater or equal to 6.5% is considered diagnostic of diabetes. Performed By: #### 5 5454-3 #### [facility] CLIA [id number] [address] [place] [address] [place] Prolactin SerPl-mCncon 12-30 Prolactin [Mass/Vol] 10.3 ng/mL Normal 4.5-26.8 [facility] Comment on above: Order Comment: Rayne putnam Type: BLOOD SPECIMEN Ordering Facility: [facility] Address: [address] [place] [address] Result Comment: Prol actin test is performed using the [facility] Electrochemiluminescence Immunoassay method. Results obtained with different methods or kits cannot be used interchangeably. Performed By: #### 3 016-3, 12902-0, 2243-4, 2842-3 #### [facility] CLIA [id number] [address] [place], [place] [id number] [place] RUBELLA IGG ABon 12-30-2021 RUBELLA IGG AB, QUAL Positive Normal Positive [facility] Comment on above: Order Comment: Rayne putnam Type: BLOOD SPECIMEN Ordering Facility: [facility] Address: [address] [place] [address] Result Comment: The result suggests recent or past exposure to Rubella virus or history of Rubella vaccination. Positive result may also be seen due to presence of passively-transferred antibodies. Please correlate with patient's history. Performed By: #### V ZVG2, 1988-3, RUBIGG #### [facility] CLIA [id number] [address] [place] [address] [place] TSH SerPl-aCncon 12-30-2021 TSH Qn 2.730 m[IU]/L Normal 0.270-4.200 [facility] Comment on above: Order Comment: Rayne putnam Type: BLOOD SPECIMEN Ordering Facility: [facility] Address: [address] [place] [address] Result Comment: If t he patient is , TSH reference range varies by gestational period: First Trimester (weeks 9-12): 0.180-2.990 mIU/L Second Trimester: 0.110-3.980 mIU/L Third Trimester: 0.480-4.710 mIU/L Soham Joaquin et al. A Practical Approach for the Verifications and Determination of Site- and Trimester-Specific Reference Intervals for Thyroid Function tests in . Thyroid, 2019:29:3:412-420. Tavares Mitchell, et al. 2017 Guidelines of the [place] Thy[employer] for the Diagnosis and Management of Thyroid Disease during and the . Thyroid, 2017:27:3:315-389. Performed By: #### 3 016-3, 74778-2, 2243-4, 2842-3 #### [facility] CLIA [id number] [address] [place] [address] [place] TYPE + SCREENon 12-30-2021 HISTORICAL AB SCR STATUS Negative Normal [facility] Comment on above: Order Comment: Speci men Type: BLOOD SPECIMENOrdering Facility: [facility] Address: [address] [place] [address] Performed By: #### T SCR ####CC [facility] BLOOD BANKCLIA [id number] [address] TYPE AND SCREEN EXPIRATION 01/02/2022 23:59 Normal [facility] Comment on above: Order Comment: Speci men Type: BLOOD SPECIMENOrdering Facility: [facility] Address: [address] [place] [address] Performed By: #### T SCR ####CC [facility] BLOOD BANKCLIA [id number] [address] VARICELLA ZOSTER IGGon 12-30 VARICELLA ZOSTER IGG, QUAL Positive Normal Positive [facility] Comment on above: Order Comment: Speci men Type: BLOOD SPECIMEN Ordering Facility: [facility] Address: [address] [place] [address] Result Comment: The result suggests recent or past exposure to Varicella-Zoster virus or chickenpox vaccination or zoster vaccination. Positive result may also be seen due to presence of passively-transferred antibodies. Please correlate with patient's history. Performed By: #### V ZVG2, 1989-, RUBROSALINAG #### [facility] CLIA [id number] [address] [place] [address] CULTURE URINEon 12-21-2021 CULTURE URINE Culture Observations : LIGHT GROWTH OF MIXED GENITAL ANTONIO. NO POTENTIAL PATHOGENS SEEN. Normal [facility] Comment on above: Performed By: #### C VDAGS #### [facility] [address] [address] [address] Alexei Gonzales UA RANDOM W/MICROSCOPICon BACTERIA TRACE Abnormal NONE SEEN [facility] Comment on above: Performed By: #### C BC #### [facility] [address] [address] [address] Alexei Gonzales Bilirubin Ql (U) Negative Normal NEGATIVE [facility] Comment on above: Performed By: #### C BC #### [facility] [address] [place] [address] Dr. Alexei Gonzales CAST NONE SEEN Normal NONE SEEN [facility] Comment on above: Performed By: #### C BC #### [facility] [address] [place] [address] Dr. Alexei Gonzales Clarity (U) CLEAR Normal CLEAR [facility] Comment on above: Performed By: #### C BC #### [facility] [address] [place] [address] Dr. Alexei Gonzales Color (U) YELLOW Normal YELLOW [facility] Comment on above: Performed By: #### C BC #### [facility] [address] [place] [address] Dr. Alexei Gonzales Crystals LM Nom (Urine sed) NONE SEEN Normal NONE SEEN [facility] Comment on above: Performed By: #### C BC #### [facility] [address] [place] [address] Dr. Alexei Gonzales Epithelial cells LM Ql (Urine sed) FEW Abnormal NONE SEEN /RARE [facility] Comment on above: Performed By: #### C BC #### [facility] [address] [place] [address] Dr. Alexei Gonzales Glucose Ql (U) Negative Normal NEGATIVE [facility] Comment on above: Performed By: #### C BC #### [facility] [address] [place] [address] Dr. Alexei Gonzales Hemoglobin Ql (U) TRACE-LYSED Abnormal NEGATIVE [facility] Comment on above: Performed By: #### C BC #### [facility] [address] [place] [address] Dr. Alexei Gonzales Ketones Ql (U) Negative Normal NEGATIVE [facility] Comment on above: Performed By: #### C BC #### [facility] [address] [place] [address] Dr. Alexei Gonzales LEUKOCYTES Negative Normal NEGATIVE [facility] Comment on above: Performed By: #### C BC #### [facility] [address] [place] [address] Dr. Alexei Gonzales MUCOUS NONE SEEN Normal NONE SEEN [facility] Comment on above: Performed By: #### C BC #### [facility] [address] [place] [address] Dr. Alexei Gonzales Nitrite Ql (U) Negative Normal NEGATIVE [facility] Comment on above: Performed By: #### C BC #### [facility] [address] [place] [address] Dr. Alexei Gonzales pH (U) 6.0 [pH] Normal 5-9 [facility] Comment on above: Performed By: #### C BC #### [facility] [address] [place] [address] Dr. Alexei Gonzales RBC 2-5 Abnormal 0-2 [facility] Comment on above: Performed By: #### C BC #### [facility] [address] [place] [address] Dr. Alexei Gonzales SPEC GRAVITY >=1.030 Abnormal 1.005-<=1.0 25 [facility] Comment on above: Performed By: #### C BC #### [facility] [address] [place] [address] Dr. Alexei Gonzales UA PROTEIN Negative Normal NEGATIVE/ TRACE [facility] Comment on above: Performed By: #### C BC #### [facility] [address] [place] [address] Dr. Alexei Gonzales Urobilinogen Qn (U) 0.2 {Albin'U}/dL Normal 0.2 - 1.0 [facility] Comment on above: Performed By: #### C BC #### [facility] [address] [place] [address] Dr. Alexei Gonzales WBC 0-2 Abnormal NONE SEEN [facility] Comment on above: Performed By: #### C BC #### [facility] [address] [place] [address] Dr. Alexei Gonzales CBC AUTO DIFFon 11-30-2021 BASO # 0.1 103/ul Normal 0.0-0.1 [facility] Comment on above: Performed By: #### C VDAGS #### [facility] [address] [place] [address] Dr. Alexei Gonzales Basophils/100 WBC (Bld) 0.4 % Normal 0.2-2.0 [facility] Comment on above: Performed By: #### C VDAGS #### [facility] [address] [place] [address] Dr. Alexei Gonzales EO # 0.2 103/ul Normal 0.0-0.7 [facility] Comment on above: Performed By: #### C VDAGS #### [facility] [address] [place] [address] Dr. Alexei Gonzales Eosinophils/100 WBC (Bld) 1.9 % Normal 0.9-7.0 [facility] Comment on above: Performed By: #### C VDAGS #### [facility] [address] [place] [address] Dr. Alexei Gonzales Erythrocyte distribution width (RBC) [Ratio] 13.3 % Normal 11.0-15.0 [facility] Comment on above: Performed By: #### C VDAGS #### [facility] [address] [place] [address] Dr. Alexei Gonzales Hematocrit (Bld) [Volume fraction] 40.8 % Normal 36.0-48.0 [facility] Comment on above: Performed By: #### C VDAGS #### [facility] [address] [place] [address] Dr. Alexei Gonzales Hemoglobin (Bld) [Mass/Vol] 13.0 g/dL Normal 12.0-16.0 [facility] Comment on above: Performed By: #### C VDAGS #### [facility] [address] [place] [address] Dr. Alexei Gonzales IG # 0.05 10e3/ul Critically high 0.00-0.03 [facility] Comment on above: Performed By: #### C VDAGS #### [facility] [address] [place] [address] Dr. Alexei Gonzales IG % 0.4 % Normal 0.0-0.5 [facility] Comment on above: Performed By: #### C VDAGS #### [facility] [address] [place] [address] Dr. Alexei Gonzales LYMPH # 3.4 103/ul Normal 1.2-3.8 [facility] Comment on above: Performed By: #### C VDAGS #### [facility] [address] [place] [address] Dr. Alexei Gonzales Lymphocytes/100 WBC (Bld) 29.1 % Normal 20.5-60.0 [facility] Comment on above: Performed By: #### C VDAGS #### [facility] [address] [place] [address] Dr. Alexei Gonzales MANUAL DIFF REQ NO Normal [facility] Comment on above: Performed By: #### C VDAGS #### [facility] [address] [place] [address] Dr. Alexei Gonzales MCH (RBC) [Entitic mass] 27.3 pg Normal 26.7-34.0 [facility] Comment on above: Performed By: #### C VDAGS #### [facility] [address] [place] [address] Dr. Alexei Gonzales MCHC (RBC) [Mass/Vol] 31.9 g/dL Normal 29.9-35.2 [facility] Comment on above: Performed By: #### C VDAGS #### [facility] [address] [place] [address] Dr. Alexei Gonzales MCV (RBC) [Entitic vol] 85.5 fL Normal 81.0-99.0 [facility] Comment on above: Performed By: #### C VDAGS #### [facility] [address] [place] [address] Dr. Alexei Gonzales MONO # 0.7 103/ul Normal 0.3-0.8 [facility] Comment on above: Performed By: #### C VDAGS #### [facility] [address] [place] [address] Dr. Alexei Gonzales Monocytes/100 WBC (Bld) 5.9 % Normal 1.7-12.0 [facility] Comment on above: Performed By: #### C VDAGS #### [facility] [address] [address] [address] Alexei Gonzales NEUT # 7.4 103/ul Critically high 1.4-6.5 The [facility] Comment on above: Performed By: #### C VDAGS #### [facility] [address] [address] [address] Alexei Gonzales Neutrophils/100 WBC (Bld) 62.3 % Normal 43.0-75.0 [facility] Comment on above: Performed By: #### C VDAGS #### [facility] [address] [address] [address] Alexei Gonzales Platelet mean volume (Bld) [Entitic vol] 10.4 fL Normal 9.5-13.5 [facility] Comment on above: Performed By: #### C VDAGS #### [facility] [address] [place] [address] Dr. Alexei Gonzales PLT 319 103/ul Normal 150-450 [facility] Comment on above: Performed By: #### C VDAGS #### [facility] [address] [place] [address] Dr. Alexei Gonzales RBC 4.77 106/ul Normal 4.20-5.40 [facility] Comment on above: Performed By: #### C VDAGS #### [facility] [address] [address] [address] Alexei Gonzales WBC 11.8 103/ul Critically high 4.0-11.0 [facility] Comment on above: Performed By: #### C VDAGS #### [facility] [address] [place] [address] Dr. Alexei Gonzales FREE T4on 11-30-2021 Free T4 [Mass/Vol] 1.20 ng/dL Normal 0.76-1.46 [facility] Comment on above: Performed By: #### F T4 #### [facility] [address] [place] [address] Dr. Alexei Gonzales GLYCOHEMOGLOBIN A1Con 2021 ADA RECOMMENDATION SEE BELOW Normal [facility] Comment on above: Result Comment: ADA RECOMMENDED LIMIT 4.0 - 6.0 ADA THERAPEUTIC TARGET < 7.0 ACTION SUGGESTED > 7.0 Performed By: #### A 1C #### [facility] [address] [place] [address] Dr. Alexei Gonzales Glucose [Mass/Vol] 126 mg/dL Normal [facility] Comment on above: Performed By: #### A 1C #### [facility] [address] [address] [address] Alexei Gonzales HbA1c (Bld) [Mass fraction] 6.0 % Normal 4.5-6.2 [facility] Comment on above: Performed By: #### A 1C #### [facility] [address] [place] [address] Dr. Alexei Gonzales LIPID PROFILEon 11-30-2021 CHOL-HDL RATIO NORM SEE BELOW Normal [facility] Comment on above: Result Comment: 3.3 - 4.4 LOW RISK 4.4 - 7.1 AVERAGE RISK 7.1 - 11.0 MODERATE RISK >11.0 HIGH RISK Performed By: #### L IPID, CMP, TSH #### [facility] [address] [place] [address] Dr. Alexei Gonzales Cholesterol [Mass/Vol] 180 mg/dL Normal <=200 [facility] Comment on above: Performed By: #### L IPID, CMP, TSH #### [facility] [address] [place] [address] Dr. Alexei Gonzales Cholesterol in HDL [Mass/Vol] 40 mg/dL Normal 40-60 [facility] Comment on above: Performed By: #### L IPID, CMP, TSH #### [facility] [address] [place] [address] Dr. Alexei Gonzales Cholesterol in LDL [Mass/Vol] 114.4 mg/dL Normal [facility] Comment on above: Performed By: #### L IPID, CMP, TSH #### [facility] [address] [place] [address] Dr. lAexei Gonzales Cholesterol.total/ Cholesterol in HDL [Mass ratio] 4.5 {ratio} Normal [facility] Comment on above: Performed By: #### L IPID, CMP, TSH #### [facility] [address] [address] [address] Alexei Gonzales HDL NORMAL > or = 60 mg/dl - LO W CARDIOVASCULAR RISK <40 mg/dl - HIGH CARDIOVASCULAR RISK Normal [facility] Comment on above: Performed By: #### L IPID, CMP, TSH #### [facility] [address] [address] [address] Alexei Gonzales LDL CALC NORMAL SEE BELOW Normal [facility] Comment on above: Result Comment: <100 mg/dl OPTIMAL 100 - 129 mg/dl NEAR OR ABOVE OPTIMAL 130 - 159 mg/dl BORDERLINE HIGH 160 - 189 mg/dl HIGH >190 mg/dl VERY HIGH Performed By: #### L IPID, CMP, TSH #### [facility] [address] [address] [address] Alexei Gonzales Triglyceride [Mass/Vol] 128 mg/dL Normal <=150 [facility] Comment on above: Performed By: #### L IPID, CMP, TSH #### [facility] [address] [address] [address] Alexei Gonzales VLDL CALC 25.6 mg/dL Normal [facility] Comment on above: Performed By: #### L IPID, CMP, TSH #### [facility] [address] [address] [address] Alexei Gonzales PROF 14(COMP METB)on 022 Albumin [Mass/Vol] 3.4 g/dL Normal 3.4-5.0 [facility] Comment on above: Performed By: #### L IPID, CMP, TSH #### [facility] [address] [address] [address] Alexei Gonzales Albumin/Globulin [Mass ratio] 0.9 {ratio} Normal [facility] Comment on above: Performed By: #### L IPID, CMP, TSH #### [facility] [address] [address] [address] Alexei Gonzales ALP [Catalytic activity/Vol] 81 U/L Normal 46-116 [facility] Comment on above: Performed By: #### L IPID, CMP, TSH #### [facility] [address] [address] [address] Alexei Gonzales ALT [Catalytic activity/Vol] 41 U/L Normal 14-59 [facility] Comment on above: Performed By: #### L IPID, CMP, TSH #### [facility] [address] [address] [address] Alexei Gonzales Anion gap [Moles/Vol] 10.6 mmol/L Normal [facility] Comment on above: Performed By: #### L IPID, CMP, TSH #### [facility] [address] [address] [address] Alexei Gonzales AST [Catalytic activity/Vol] 22 U/L Normal 15-37 [facility] Comment on above: Performed By: #### L IPID, CMP, TSH #### [facility] [address] [place] [address] Dr. Alexei Gonzales Bilirubin [Mass/Vol] 0.4 mg/dL Normal 0.2-1.0 [facility] Comment on above: Performed By: #### L IPID, CMP, TSH #### [facility] [address] [address] [address] Alexei Gonzales Calcium [Mass/Vol] 9.1 mg/dL Normal 8.5-10.1 [facility] Comment on above: Performed By: #### L IPID, CMP, TSH #### [facility] [address] [address] [address] Alexei Gonzales Chloride [Moles/Vol] 105 mmol/L Normal 98-107 [facility] Comment on above: Performed By: #### L IPID, CMP, TSH #### [facility] [address] [address] [address] Alexei Gonzales CO2 [Moles/Vol] 25.6 mmol/L Normal 21.0-32.0 [facility] Comment on above: Performed By: #### L IPID, CMP, TSH #### [facility] [address] [address] [address] Alexei Gonzales Creatinine [Mass/Vol] 0.84 mg/dL Normal 0.55-1.02 [facility] Comment on above: Performed By: #### L IPID, CMP, TSH #### [facility] [address] [place] [address] Dr. Alexei Gonzales EGFR-AF EMIRATI >60 Normal >=60 [facility] Comment on above: Performed By: #### L IPID, CMP, TSH #### [facility] [address] [address] [address] Alexei Gonzales EGFR-NON AF EMIRATI >60 Normal >=60 [facility] Comment on above: Performed By: #### L IPID, CMP, TSH #### [facility] [address] [address] [address] Alexei Gonzales Globulin (S) [Mass/Vol] 4.0 g/dL Normal [facility] Comment on above: Performed By: #### L IPID, CMP, TSH #### [facility] [address] [place] [address] Dr. Alexei Gonzlaes Glucose [Mass/Vol] 113 mg/dL Critically high 74-106 [facility] Comment on above: Performed By: #### L IPID, CMP, TSH #### [facility] [address] [place] [address] Dr. Alexei Gonzales Potassium [Moles/Vol] 4.2 mmol/L Normal 3.5-5.1 [facility] Comment on above: Performed By: #### L IPID, CMP, TSH #### [facility] [address] [place] [address] Dr. Alexei Gonzales Protein [Mass/Vol] 7.4 g/dL Normal 6.4-8.2 [facility] Comment on above: Performed By: #### L IPID, CMP, TSH #### [facility] [address] [place] [address] Dr. Alexei Gonzales Sodium [Moles/Vol] 137 mmol/L Normal 136-145 [facility] Comment on above: Performed By: #### L IPID, CMP, TSH #### [facility] [address] [place] [address] Dr. Alexei Gonzales Urea nitrogen [Mass/Vol] 14.0 mg/dL Normal 7.0-18.0 [facility] Comment on above: Performed By: #### L ALBERTO DESAI, TSH #### [facility] [address] [place] [address] Dr. Alexei Gonzales Urea nitrogen/Creatinin e [Mass ratio] 16.7 mg/mg Normal [facility] Comment on above: Performed By: #### L ALBERTO DESAI, TSH #### [facility] [address] [place] [address] Dr. Alexei Gonzales TSHon 11-30-2021 TSH 1.150 uIU/mL Normal 0.358-3.740 [facility] Comment on above: Performed By: #### L ALBERTO DESAI, TSH #### [facility] [address] [place] [address] Dr. Alexei Gonzales UA RANDOM W/MICROSCOPICon BACTERIA SMALL Abnormal NONE SEEN [facility] Comment on above: Performed By: #### C BC #### [facility] [address] [place] [address] Dr. Alexei Gonzales Bilirubin Ql (U) Negative Normal NEGATIVE [facility] Comment on above: Performed By: #### C BC #### [facility] [address] [place] [address] Dr. Alexei Gonzales CAST NONE SEEN Normal NONE [facility] Comment on above: Performed By: #### C BC #### [facility] [address] [place] [address] Dr. Alexei Gonzales Clarity (U) CLEAR Normal CLEAR [facility] Comment on above: Performed By: #### C BC #### [facility] [address] [place] [address] Dr. Alexei Gonzales Color (U) YELLOW Normal YELLOW [facility] Comment on above: Performed By: #### C BC #### [facility] [address] [place] [address] Dr. Alexei Gonzales Crystals LM Nom (Urine sed) NONE SEEN Normal NONE SEEN [facility] Comment on above: Performed By: #### C BC #### [facility] [address] [place] [address] Dr. Alexei Gonzales Epithelial cells LM Ql (Urine sed) MODERATE Abnormal NONE SEEN /RARE [facility] Comment on above: Performed By: #### C BC #### [facility] [address] [place] [address] Dr. Alexei Gonzales Glucose Ql (U) Negative Normal NEGATIVE [facility] Comment on above: Performed By: #### C BC #### [facility] [address] [place] [address] Dr. Alexei Gonzales Hemoglobin Ql (U) TRACE-INTACT Abnormal NEGATIVE [facility] Comment on above: Performed By: #### C BC #### [facility] [address] [place] [address] Dr. Alexei Gonzales Ketones Ql (U) TRACE Abnormal NEGATIVE [facility] Comment on above: Performed By: #### C BC #### [facility] [address] [place] [address] Dr. Alexei Gonzales LEUKOCYTES Negative Normal NEGATIVE [facility] Comment on above: Performed By: #### C BC #### [facility] [address] [place] [address] Dr. Alexei Gonzales MUCOUS TRACE Abnormal NONE SEEN [facility] Comment on above: Performed By: #### C BC #### [facility] [address] [place] [address] Dr. Alexei Gonzales Nitrite Ql (U) Negative Normal NEGATIVE [facility] Comment on above: Performed By: #### C BC #### [facility] [address] [place] [address] Dr. Alexei Gonzales pH (U) 5.5 [pH] Normal 5-9 [facility] Comment on above: Performed By: #### C BC #### [facility] [address] [place] [address] Dr. Alexei Gonzales RBC 2-5 Abnormal 0-2 [facility] Comment on above: Performed By: #### C BC #### [facility] [address] [place] [address] Dr. Alexei Gonzales SPEC GRAVITY >=1.030 Abnormal 1.005-<=1.0 25 [facility] Comment on above: Performed By: #### C BC #### [facility] [address] [place] [address] Dr. Alexei Gonzales UA PROTEIN Negative Normal NEGATIVE/ TRACE [facility] Comment on above: Performed By: #### C BC #### [facility] [address] [place] [address] Dr. Alexei Gonzales Urobilinogen Qn (U) 0.2 {Albin'U}/dL Normal 0.2 - 1.0 [facility] Comment on above: Performed By: #### C BC #### [facility] [address] [place] [address] Dr. Alexei Gonzales WBC 2-5 Abnormal NONE SEEN [facility] Comment on above: Performed By: #### C BC #### [facility] [address] [place] [address] Dr. Alexei Gonzales CBC AUTO DIFFon 11-22-2021 BASO # 0.1 103/ul Normal 0.0-0.1 [facility] Comment on above: Performed By: #### C BC #### [facility] [address] [place] [address] Dr. Alexei Gonzales Basophils/100 WBC (Bld) 0.4 % Normal 0.2-2.0 [facility] Comment on above: Performed By: #### C BC #### [facility] [address] [place] [address] Dr. Alexei Gonzales EO # 0.2 103/ul Normal 0.0-0.7 [facility] Comment on above: Performed By: #### C BC #### [facility] [address] [place] [address] Dr. Alexei Gonzales Eosinophils/100 WBC (Bld) 1.4 % Normal 0.9-7.0 [facility] Comment on above: Performed By: #### C BC #### [facility] [address] [place] [address] Dr. Alexei Gonzales Erythrocyte distribution width (RBC) [Ratio] 13.2 % Normal 11.0-15.0 [facility] Comment on above: Performed By: #### C BC #### [facility] [address] [place] [address] Dr. Alexei Gonzales Hematocrit (Bld) [Volume fraction] 38.8 % Normal 36.0-48.0 [facility] Comment on above: Performed By: #### C BC #### [facility] [address] [place] [address] Dr. Alexei Gonzales Hemoglobin (Bld) [Mass/Vol] 12.6 g/dL Normal 12.0-16.0 [facility] Comment on above: Performed By: #### C BC #### [facility] [address] [place] [address] Dr. Alexei Gonzales IG # 0.04 10e3/ul Critically high 0.00-0.03 [facility] Comment on above: Performed By: #### C BC #### [facility] [address] [place] [address] Dr. Alexei Gonzales IG % 0.3 % Normal 0.0-0.5 [facility] Comment on above: Performed By: #### C BC #### [facility] [address] [place] [address] Dr. Alexei Gonzales LYMPH # 3.4 103/ul Normal 1.2-3.8 [facility] Comment on above: Performed By: #### C BC #### [facility] [address] [place] [address] Dr. Alexei Gonzales Lymphocytes/100 WBC (Bld) 26.9 % Normal 20.5-60.0 [facility] Comment on above: Performed By: #### C BC #### [facility] [address] [place] [address] Dr. Alexei Gonzales MANUAL DIFF REQ NO Normal [facility] Comment on above: Performed By: #### C BC #### [facility] [address] [place] [address] Dr. Alexei Gonzales MCH (RBC) [Entitic mass] 27.3 pg Normal 26.7-34.0 [facility] Comment on above: Performed By: #### C BC #### [facility] [address] [address] [address] Alexei Gonzales MCHC (RBC) [Mass/Vol] 32.5 g/dL Normal 29.9-35.2 [facility] Comment on above: Performed By: #### C BC #### [facility] [address] [address] [address] Alexei Gonzales MCV (RBC) [Entitic vol] 84.2 fL Normal 81.0-99.0 [facility] Comment on above: Performed By: #### C BC #### [facility] [address] [address] [address] Alexei Gonzales MONO # 0.6 103/ul Normal 0.3-0.8 [facility] Comment on above: Performed By: #### C BC #### [facility] [address] [place] [address] Dr. Alexei Gonzales Monocytes/100 WBC (Bld) 5.1 % Normal 1.7-12.0 [facility] Comment on above: Performed By: #### C BC #### [facility] [address] [address] [address] Alexei Gonzales NEUT # 8.3 103/ul Critically high 1.4-6.5 [facility] Comment on above: Performed By: #### C BC #### [facility] [address] [address] [address] Alexei Gonzales Neutrophils/100 WBC (Bld) 65.9 % Normal 43.0-75.0 [facility] Comment on above: Performed By: #### C BC #### [facility] [address] [address] [address] Alexei Gonzales Platelet mean volume (Bld) [Entitic vol] 10.1 fL Normal 9.5-13.5 [facility] Comment on above: Performed By: #### C BC #### [facility] [address] [address] [address] Alexei Gonzales PLT 373 103/ul Normal 150-450 [facility] Comment on above: Performed By: #### C BC #### [facility] [address] [address] [address] Alexei Gonzales RBC 4.61 106/ul Normal 4.20-5.40 [facility] Comment on above: Performed By: #### C BC #### [facility] [address] [place] [address] Dr. Alexei Gonzales WBC 12.5 103/ul Critically high 4.0-11.0 [facility] Comment on above: Performed By: #### C BC #### [facility] [address] [place] [address] Dr. Alexei Gonzales PREG HCG QUALon 11-22-2021 , QUAL Negative Normal NEGATIVE [facility] Comment on above: Performed By: #### C BC #### [facility] [address] [place] [address] Dr. Alexei Gonzales PROF 14(COMP METB)on 022 Albumin [Mass/Vol] 3.3 g/dL Critically low 3.4-5.0 [facility] Comment on above: Performed By: #### C BC #### [facility] [address] [place] [address] Dr. Alexei Gonzales Albumin/Globulin [Mass ratio] 0.8 {ratio} Normal [facility] Comment on above: Performed By: #### C BC #### [facility] [address] [place] [address] Dr. Alexei Gonzales ALP [Catalytic activity/Vol] 89 U/L Normal 46-116 [facility] Comment on above: Performed By: #### C BC #### [facility] [address] [place] [address] Dr. Alexei Gonzales ALT [Catalytic activity/Vol] 43 U/L Normal 14-59 [facility] Comment on above: Performed By: #### C BC #### [facility] [address] [place] [address] Dr. Alexei Gonzales Anion gap [Moles/Vol] 13.4 mmol/L Normal [facility] Comment on above: Performed By: #### C BC #### [facility] [address] [address] [address] Alexei Gonzales AST [Catalytic activity/Vol] 17 U/L Normal 15-37 [facility] Comment on above: Performed By: #### C BC #### [facility] [address] [address] [address] Alexei Gonzales Bilirubin [Mass/Vol] 0.3 mg/dL Normal 0.2-1.0 [facility] Comment on above: Performed By: #### C BC #### [facility] [address] [place] [address] Dr. Alexei Gonzales Calcium [Mass/Vol] 8.9 mg/dL Normal 8.5-10.1 [facility] Comment on above: Performed By: #### C BC #### [facility] [address] [place] [address] Dr. Alexei Gonzales Chloride [Moles/Vol] 103 mmol/L Normal 98-107 [facility] Comment on above: Performed By: #### C BC #### [facility] [address] [place] [address] Dr. Alexei Gonzales CO2 [Moles/Vol] 26.4 mmol/L Normal 21.0-32.0 [facility] Comment on above: Performed By: #### C BC #### [facility] [address] [place] [address] Dr. Alexei Gonzales Creatinine [Mass/Vol] 0.91 mg/dL Normal 0.55-1.02 [facility] Comment on above: Performed By: #### C BC #### [facility] [address] [place] [address] Dr. Alexei Gonzales EGFR-AF EMIRATI >60 Normal >=60 [facility] Comment on above: Performed By: #### C BC #### [facility] [address] [place] [address] Dr. Alexei oGnzales EGFR-NON AF EMIRATI >60 Normal >=60 [facility] Comment on above: Performed By: #### C BC #### [facility] [address] [place] [address] Dr. Alexei Gonzales Globulin (S) [Mass/Vol] 4.1 g/dL Normal [facility] Comment on above: Performed By: #### C BC #### [facility] [address] [address] [address] Alexei Gonzales Glucose [Mass/Vol] 151 mg/dL Critically high 74-106 [facility] Comment on above: Performed By: #### C BC #### [facility] [address] [address] [address] Alexei Gonzales Potassium [Moles/Vol] 3.8 mmol/L Normal 3.5-5.1 [facility] Comment on above: Performed By: #### C BC #### [facility] [address] [address] [address] Alexei Gonzales Protein [Mass/Vol] 7.4 g/dL Normal 6.4-8.2 [facility] Comment on above: Performed By: #### C BC #### [facility] [address] [place] [address] Dr. Alexei Gonzales Sodium [Moles/Vol] 139 mmol/L Normal 136-145 [facility] Comment on above: Performed By: #### C BC #### [facility] [address] [place] [address] Dr. Alexei Gonzales Urea nitrogen [Mass/Vol] 12.0 mg/dL Normal 7.0-18.0 [facility] Comment on above: Performed By: #### C BC #### [facility] [address] [place] [address] Dr. Alexei Gonzales Urea nitrogen/Creatinin e [Mass ratio] 13.2 mg/mg Normal [facility] Comment on above: Performed By: #### C BC #### [facility] [address] [place] [address] Dr. Alexei Gonzales TROPONIN, HIGH SENSITIVITYon 11-22-2021 HSTROP 5.0 pg/mL Normal 4.0-51.3 [facility] Comment on above: Result Comment: CUT- OFF POINTS HAVE BEEN ESTABLISHED BASED ON THE FOURTH UNIVERSAL DEFINITIONS OF MYOCARDIAL INFARCTION. THE UPPER REFERENCE LIMIT (URL) OF TROPONIN, DEFINED THE 99TH PERCENTILE OF cTnI DISTRIBUTION IN A REFERENCE POPULATION, HAS BEEN CONFIRMED THE DECISION THRESHOLD FOR GA DIAGNOSIS. Performed By: #### C BC #### [facility] [address] [address] [address] Alexei Gonzales XR CHEST 1 Von 11-22-2021 XR CHEST 1 V EXAM: XR CHEST 1 V HISTORY: CHEST PAIN, UNSPECIFIED COMPARISON: None. TECHNIQUE: Single frontal view of the chest is obtained. FINDINGS: The cardiac mediastinal silhouette is nonenlarged. The pulmonary vascular markings are within normal limits. There is no focal airspace consolidation. The costophrenic angles are clear. No pneumothorax. The osseous structures are grossly intact. IMPRESSION: No acute cardiopulmonary process identified. Electronically authenticated by: LUDMILA WINKLER Date: 2021-11-21 23:31 Normal [facility] PAP ACOG PANEL 2: 30 to 65on 10-22-2021 . . Normal [facility] Comment on above: Result Comment: Perf ormed at: WB Performed By: #### [id number] #### [facility] [address] [place] [address] Dr. Alexei Gonzales Age Gdln ACOG Testing 30-65 Normal [facility] Comment on above: Performed By: #### [id number] #### [facility] [address] [place] [address] Dr. Alexei Gonzales DIAGNOSIS: Comment Normal [facility] Comment on above: Result Comment: NEGA TIVE FOR INTRAEPITHELIAL LESION OR MALIGNANCY. Performed at: WB Performed By: #### [id number] #### [facility] [address] [address] [address] Alexei Gonzales HPV Aptima Negative Normal Negative [facility] Comment on above: Result Comment: This nucleic acid amplification test detects fourteen high-risk HPV types (16,18,31,33,35,39,45,51,52,56,58,59,66,68) without differentiation. Performed at: =G Performed By: #### [id number] #### [facility] [address] [place] [address] Dr. Alexei Gonzales Methodology: Comment Normal [facility] Comment on above: Result Comment: This liquid based ThinPrep(R) pap test was screened with the use of an image guided system. Performed at: WB Performed By: #### [id number] #### [facility] [address] [place] [address] Dr. Alexei Gonzales Note: Comment Normal [facility] Comment on above: Result Comment: The Pap smear is a screening test designed to aid in the detection of premalignant and malignant conditions of the uterine cervix. It is not a diagnostic procedure and should not be used as the sole means of detecting cervical cancer. Both false-positive and false-negative reports do occur. . Performed at: WB Performed By: #### [id number] #### [facility] [address] [place] [address] Dr. Alexei Gonzales Performed by: Comment Normal [facility] Comment on above: Result Comment: Elis Oshea, Furniture Salesperson (ASCP) Performed at: WB Performed By: #### [id number] #### [facility] [address] [place] [address] Dr. Alexei Gonzales Specimen adequacy: Comment Normal [facility] Comment on above: Result Comment: Sati sfactory for evaluation. Endocervical and/or squamous metaplastic cells (endocervical component) are present. Performed at: WB Performed By: #### [id number] #### [facility] [address] [place] [address] Dr. Alexei Gonzales Vital Signs Date Time Vital Sign Value Performing Clinician Facility 04-08-2022 14:15-050 Body height 162.56 cm Luciana Flores Other [facility] [facility] Other 04-08-2022 14:15-0500 Body mass index (BMI) [Ratio] 50.46 kg/m2 Luciana Flores Other [facility] Other 04-08-2022 14:15-0500 Body temperature 98.4 [degF] Luciana Flores Other [facility] Other 04-08-2022 14:15-0500 Body weight 133.36 kg Luciana Flores Other [facility] Other 04-08-2022 14:15-0500 Respiratory rate 18 /min Luciana Flores Other [facility] Other 04-08-2022 14:15-0500 SaO2% (BldA) [Mass fraction] 99 % Luciana Flores Other [facility] Other 04-04-2022 09:23-0500 Blood Pressure Location [facility] 04-04-2022 09:23-0500 Diastolic blood pressure 89 mm[Hg] [facility] 04-04-2022 09:23-0500 Heart rate 75 /min [facility] 04-04-2022 09:23-0500 Respiratory rate 16 /min [facility] 04-04-2022 09:23-0500 Systolic blood pressure 136 mm[Hg] [facility] 12-30-2021 12:56-0400 Body height 162.6 cm Monica Torres MD Work Phone: [facility] 12-30-2021 12:56-0400 Body weight 136.08 kg Monica Torres MD Work Phone: [facility] 12-30-2021 12:56-0400 Diastolic blood pressure 72 mm[Hg] Monica Torres MD Work Phone: [facility] 12-30-2021 12:56-0400 Systolic blood pressure 116 mm[Hg] Monica Torres MD Work Phone: [facility] 08-27-2021 17:50-0400 Body height 162.56 cm Luciana Flores Other [facility] Other 08-27-2021 17:50-0400 Body mass index (BMI) [Ratio] 49.77 kg/m2 Luciana Flores Other [facility] Other 08-27-2021 17:50-0400 Body temperature 97.7 [degF] Luciana Mark Other [facility] Other 08-27-2021 17:50-0400 Body weight 131.54 kg Luciana Mark Other [facility] Other 08-27-2021 17:50-0400 Respiratory rate 18 /min Luciana Flores Other [facility] Other 08-27-2021 17:50-0400 SaO2% (BldA) [Mass fraction] 98 % Luciana Flores Other [facility] Other Encounters Encounter Date Encounter Type Care Provider Facility Start: 04-26-[address] [facility] Start: 08-01-2023 End: 08-01-2023 ambulatory URSULA AICLAINEY Not Available Start: 07-12-2023 End: 07-12-2023 ambulatory ADA SELF Not Available Start: 04-21-2023 End: 04-22-2023 ambulatory Audi ANGELA Facility:NIRAJ Duran Start: 09-20-2022 End: 09-20-2022 ambulatory OBSERVER GRAVITY PROSPECTING URSULA AICHHOLZ Facility:[facility] Start: 08-31-2022 End: 08-31-2022 ambulatory OBSERVER GRAVITY PROSPECTING URSULA AICHHOLZ Facility:[facility] Start: 05-13-2022 End: 05-13-2022 ambulatory OBSERVER GRAVITY PROSPECTING URSULA AICHHOLZ Facility:[facility] Start: 04-18-2022 End: 04-18-2022 ambulatory OBSERVER GRAVITY PROSPECTING URSULA MONSON Facility:[facility] Start: 04-15-2022 End: 04-16-2022 ambulatory OBSERVER GRAVITY PROSPECTING URSULA ERMIAS Facility:[facility] Start: 04-08-2022 End: 04-08-2022 ambulatory Luciana Flores Other [facility] Other Start: 04-08-2022 Office outpatient vi sit 25 minutes Luciana Flores [facility] Start: 04-04-2022 End: 04-04-2022 Patient encounter procedure Audi ANGEL[facility] Start: 01-18-2022 Telephone encounter Lacey hunter MD Work Phone: [facility] Comment on above: Appointment Start: 01-17-2022 End: 01-18-2022 ambulatory OBSERVER GRAVITY PROSPECTING URSULA MONSON Facility:[facility] Start: 01-14-2022 End: 01-14-2022 ambulatory Monica Torres MD Work Phone: [facility] Comment on above: info Primary amenorrhea ( Primary Dx) Start: 01-14-2022 E-mail encounter fro m caregiver Monica Torres MD Work Phone: [facility] Start: 01-14-2022 End: 01-14-2022 Telemedicine consultation with patient Monica Torres MD Work Phone: [facility] Start: 12-30-2021 End: 12-31-2021 ambulatory MONICA TORRES Facility:[facility] Start: 12-30-2021 End: 12-30-2021 Patient encounter procedure Monica Torres MD Work Phone: [facility] Comment on above: Primary amenorrhea ( Primary Dx) Start: 12-21-2021 End: 12-22-2021 ambulatory OBSERVER GRAVITY PROSPECTING URSULA ERMIAS Facility:[facility] Start: 11-30-2021 End: 12-01-2021 ambulatory OBSERVER GRAVITY PROSPECTING URSULA AICHHOLZ Facility:[facility] Start: 11-22-2021 End: 11-22-[address] KIRTI CROCKETT Facility:[facility] Start: 10-19-2021 End: 10-19-[address] IMTIAZ LONGO . Facility:[facility] Start: 08-27-2021 End: 08-27-2021 ambulatory Luciana Flores Other [facility] Other Start: 08-27-2021 Office outpatient vi sit 15 minutes Luciana Flores [facility] Start: 09-11-2020 End: 09-11-2020 ambulatory Raj West Facility:[facility] Procedures Date Procedure Procedure Detail Performing Clinician Start: 12-30-2021 Antibody screen MONICA TORRES Comment on above: Order Comment: Speci men Type: BLOOD SPECIMENOrdering Facility: [facility] Address: [address] [place] [address] Performed By: #### T SCR ####[facility]IN BLOOD BANKCLIA [id number] [address] Plan of Treatment Date Care Activity Detail Author Start: 01-06-2022 Influenza vaccination INFLUENZA (#1) [facility] Start: 12-30-2021 End: 03-01-2022 25-hydroxyvitamin D3 [Mass/volume] in Serum or Plasma [facility] Work Phone: Comment on above: Expected: 12/30/2021 , Expires: 03/01/2022 Start: 12-30-2021 End: 03-01-2022 Estradiol (E2) [Mass/volume] in Serum or Plasma [facility] Work Phone: Comment on above: Expected: 12/30/2021 , Expires: 03/01/2022 Start: 12-30-2021 End: 03-01-2022 Follitropin [Units/volume] in Serum or Plasma [facility] Work Phone: Comment on above: Expected: 12/30/2021 , Expires: 03/01/2022 Start: 12-30-2021 End: 03-01-2022 Hemoglobin A1c in Blood [facility] Work Phone: Comment on above: Expected: 12/30/2021 , Expires: 03/01/2022 Start: 12-30-2021 End: 03-01-2022 Prolactin [Mass/volume] in Serum or Plasma [facility] Work Phone: Comment on above: Expected: 12/30/2021 , Expires: 03/01/2022 Start: 12-30-2021 End: 03-01-2022 RUBELLA IGG AB [facility] Work Phone: Comment on above: Expected: 12/30/2021 , Expires: 03/01/2022 Start: 12-30-2021 End: 03-01-2022 Thyrotropin [Units/volume] in Serum or Plasma [facility] Work Phone: Comment on above: Expected: 12/30/2021 , Expires: 03/01/2022 Start: 12-30-2021 End: 03-01-2022 TYPE + SCREEN [facility] Work Phone: Comment on above: Expected: 12/30/2021 , Expires: 03/01/2022 Start: 12-30-2021 End: 03-01-2022 VARICELLA ZOSTER IGG [facility] Work Phone: Comment on above: Expected: 12/30/2021 , Expires: 03/01/2022 Start: 01-30-2021 COVID-19 VACCINE (3 - Booster for Pfizer series) COVID-19 VACCINE (3 - Booster for Pfizer series) [facility] Start: 2019 HPV TESTING HPV TESTING [facility] Start: 2010 PAP TESTING PAP TESTING [facility] Start: 02-23-2008 Urine microalbumin profile DTAP,TDAP,TD (1 - Tdap) [facility] Start: 2007 HEPATITIS C SCREENING HEPATITIS C SC REENING [facility] Start: 2007 HIV SCREENING HIV SCREENING [facility] Start: 2001 Adult depression screening assessment DEPRESSION SCREENING [facility] Start: 1989 HEPATITIS B (1 of 3 - 3-dose series) HEPATITIS B (1 of 3 - 3-dose series) [facility] Immunizations Immunization Date Immunization Notes Care Provider Fa isabel 08-30-2020 SARS-CoV-2 (COVID-19 ) mRNA BNT-162b2 vax [facility] Comment on above: Result Comment: 2021: TPVAL 08-07-2020 SARS-CoV-2 (COVID-19 ) mRNA BNT-162b2 vax [facility] Comment on above: Result Comment: 2021: TPVAL 09-21-2001 measles, mumps and rubella virus vaccine Audi [facility] Payers Date Payer Category Payer Unknown [id number] 2022 Unknown [id number] 2020 Self-pay 2019 Unknown KEVIN AN PPO [id number] 2019-Present [phone] [address] [place] [address] PPO [id number] 1989 Unknown [id number] 2.16.840.1.397060.3.579.2. 593 1989 Unknown [id number] 2.16.840.1.567058.3.579.2. 593 1989 Unknown [id number] 2.16.840.1.372539.3.579.2. 593 1989 Unknown [id number] 2.16.840.1.804152.3.579.2. 593 1989 Unknown [id number] 2.16.840.1.225078.3.579.2. 593 1989 Unknown [id number] 2.16.840.1.430945.3.579.2. 593 1989 Unknown [id number] 2.16.840.1.022855.3.579.2. 593 1989 Unknown [id number] 2.16.840.1.317500.3.579.2. 593 1989 Unknown [id number] 2.16.840.1.832576.3.579.2. 593 1989 Unknown [id number] 2.16.840.1.905545.3.579.2. 593 1989 Unknown [id number] 2.16.840.1.788107.3.579.2. 727 1989 Unknown [id number] 2.16.840.1.833965.3.579.2. 727 1989 Unknown [id number] 2.16.840.1.559776.3.579.2. 1259 1989 Unknown [id number] 2.16.840.1.037657.3.579.2. 1259 1959 [facility] [id number] 2.16.840.1.432480.19 Unknown [id number] 2.16.840.1.123464.3.579.2. 531 Social History Date Type Detail Facility Unknown if ever smoked [facility] Other Sex Assigned At [facility] Start: 12-30-2021 End: 04-04-2022 Tobacco smoking status WIIS Ex-smoker [facility] History of tobacco use Current smoker [facility] History of tobacco use Cigarette Smoker [facility] Start: 12-30-2021 Tobacco use and exposure User of smokeless tobacco [facility] Start: 12-30-2021 Tobacco Comment SALMA Mckee [facility] Start: 1989 Sex Assigned At Not on file C [facility] Start: 12-20-2021 End: 12-30-2021 Exposure to SARS-CoV-2 (event) Not sure [facility] Functional Status Date Assessment Result Facility 04-04-2022 Functional Status N/A [facility] Clinical Notes 08-27-2021 to 04-08-2022 Note Date & Type Note Facility 04-08-2022 Evaluation note Encounter Date Diagnosis Assessment Notes Apr, Cough (ICD-10 - R05.9) Apr, COVID-19 (ICD-10 - U07.1) COVID PCR test performed in office today. Advised patient that test was positive. Influenza A/B/RSV PCR tests negative. Instructed patient to isolate per CDC guidelines for 5 days from symptom onset, mask 5 days following. May return to work/activities outside home after isolation period as long as symptoms are improving and has been afebrile for 24 hours without use of antipyretic. Advised patient that treatment of COVID is with viral supportive care, rx of Brofmed as directed, Tylenol/Motrin as needed for body aches/fever. Increase fluids and rest. Encouraged use of cool mist humidifier. Follow-up with PCP to advise of positive result and further management. Immediate eval for SOB, difficulty, chest pain, fevers that do not break with antipyretic or any other concerning symptoms as reviewed on patient education handout. Patient verbalizes understanding and is agreeable to treatment plan. Patient left in stable condition [facility] Other 11-28-2022 Hospital Discharge instructions Patient Education 04/04/2022 08:04:02 Hematuria, Adult Hematuria, Adult Hematuria is blood in the urine. Blood may be visible in the urine, or it may be identified with a test. This condition can be caused by infections of the bladder, urethra, kidney, or prostate. Otherpossible causes include: Kidney stones. Cancer of the urinary tract. Too much calcium in the urine. Conditions that are passed from parent to child (inherited conditions). Exercise that requires a lot of energy. Infections can usually be treated with medicine, and a kidney stone usually will pass through your urine. If neither of these is the cause of your hematuria, more tests may be needed to identify the cause of your symptoms. It is very important to tell your health care provider about any blood in your urine, even if it ispainless or the blood stops without treatment. Blood in the urine, when it happens and then stops and then happens again, can be a symptom of a very serious condition, including cancer. There is no pain in the initial stages of many urinary cancers. Follow these instructions at home: Medicines Take ihef-nvk-ljlofis and prescription medicines only as told by your health care provider. If you were prescribed an antibiotic medicine, take it as told by your health care provider. Do notstop taking the antibiotic even if you start to feel better. Eating and drinking Drink enough fluid to keep your urine clear or pale yellow. It is recommended that you drink 3 4 quarts (2.8 3.8 L) a day. If you have been diagnosed with an infection, it is recommended that you drink cranberry juice in addition to large amounts of water. Avoid caffeine, tea, and carbonated beverages. These tend to irritate the bladder. Avoid alcohol because it may irritate the prostate (men). General instructions If you have been diagnosed with a kidney stone, follow your health care provider's instructions about straining your urine to catch the stone. Empty your bladder often. Avoid holding urine for long periods of time. If you are female: ?After a bowel movement, wipe from front to back and use each piece of toilet paper only once. ?Empty your bladder before and after sex. Pay attention to any changes in your symptoms. Tell your health care provider about any changes or any new symptoms. It is your responsibility to get your test results. Ask your health care provider, or the department performing the test, when your results will be ready. Keep all follow-up visits as told by your health care provider. This is important. Contact a health care provider if: You develop back pain. You have a fever. You have nausea or vomiting. Your symptoms do not improve after 3 days. Your symptoms get worse. Get help right away if: You develop severe vomiting and are unable take medicine without vomiting. You develop severe pain in your back or abdomen even though you are taking medicine. You pass a large amount of blood in your urine. You pass blood clots in your urine. You feel very weak or like you might faint. You faint. Summary Hematuria is blood in the urine. It has many possible causes. It is very important that you tell your health care provider about any blood in your urine, even ifit is painless or the blood stops without treatment. Take tgnm-vhe-pafhgku and prescription medicines only as told by your health care provider. Drink enough fluid to keep your urine clear or pale yellow. This information is not intended to replace advice given to you by your health care provider. Make sure you discuss any questions you have with your health care provider. Document Released: 04/24/2006 Document Revised: 09/18/2019 Document Reviewed: 05/27/2017 [employer] Patient Education 2020 [employer]. Follow Up Care 03/01/2022 10:00:52 With:ALESSANDRO EGAN, Audi Felton, URL Address: [facility] [address], [place] [address]- When: Unknown Comments:Schedule cysto, CTU [facility] 09-13-2022 Miscellaneous Notes* Telephone Encounter - Luciana Dennis - 01/18/2022 10:29 AM EDT Lacey Bronw MD P [facility] A10 Scheduling Pool New PCOS patient for clinic Call to patient, no answer. Left voicemail for patient to call the office so that we may assist with scheduling and appointmentwith Dr. Kwan for PCOS clinic. Luciana Dennis documented in this encounterOhio[facility]22 NoteHNO ID: [id number] Author: Monica Torres MD Service: ? 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 Her is 28 years old and never established a . She has amenorrhea. LMP 01/26. Negative Provera withdrawal 09/26. She get headaches but denies visual changes, hirsutism, galactorrhea or hot flushes. She was tx'd w/ Clomid 50 AND metformin x 1 cycle w/o ovulation. US - >1 yr ago, nl but left ovary not seen per pt 12/30/2021 Hemoglobin A1C 4.3 - 5.6 % 5.8 (H) ABO O Rh(D) Positive TSH 0.270 - 4.200 mIU/L 2.730 Prolactin 4.5 - 26.8 ng/mL 10.3 Rubella IgG, Qual Positive Positive Varicella Zoster IgG, Qual Positive Positive Vitamin D 25 Hydroxy 31.0 - 80.0 ng/mL 23.4 (L) FSH See comment mIU/mL 6.4 Estradiol 17B pg/mL 60 ASSESSMENT - primary infertility, amenorrhea PLAN - Provera x 10 days then Letrozole 5 mg x 6 cycles semen analysis AND HSG if not after 6 ovulatory cycles begin metformin AND vit D referred to [facility] endo wt loss clinic I spent a total of 20 minutes via virtual visit which included preparing to see the patient, ofcy-wx-ptfz patient care, completing clinical documentation, obtaining and/or reviewing separately obtained history, counseling and educating the patient/family/caregiver, and ordering medications, tests, or procedures. 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 Her is 28 years old and never established a . She has amenorrhea. LMP 01/26. Negative Provera withdrawal 09/26. She get headachesbut denies visual changes, hirsutism, galactorrhea or hot flushes. She was tx'd w/ Clomid 50 & metformin x 1 cycle w/o ovulation. US - >1 yr ago, nl but left ovary not seen per pt 12/30/2021 Hemoglobin A1C 4.3 - 5.6 % 5.8 (H) ABO O Rh(D) Positive TSH 0.270 - 4.200 mIU/L 2.730 Prolactin 4.5 - 26.8 ng/mL 10.3 Rubella IgG, Qual Positive Positive Varicella Zoster IgG, Qual Positive Positive Vitamin D 25 Hydroxy 31.0 - 80.0 ng/mL 23.4 (L) FSH See comment mIU/mL 6.4 Estradiol 17B pg/mL 60 ASSESSMENT - primary infertility, amenorrhea PLAN - Provera x 10 days then Letrozole 5 mg x 6 cycles semen analysis & HSG if not after 6 ovulatory cycles begin metformin & vit D referred to [facility] I spent a total of 20 minutes via virtual visit which included preparing to see the patient, hlco-hn-qccf patient care, completing clinical documentation, obtaining and/or reviewing separately obtained history, counseling and educating the patient/family/caregiver, and ordering medications, tests, or procedures. Medical Decision Making: Problems: Low: Stable chronic illness Data: Unique test result(s) reviewed: 3+ Medical Decision Making Level: 3 - Low Monica Torres MD . documented in this encounterOhiohealth [facility] Center08-25-2022 NoteHNO ID: [id number] Author: Monica Torres MD Service: ? Author Type: Physician Type: Progress Notes Filed: 12/30/2021 1:57 PM Note Text: Consultation requested by Dr. Longo for an opinion regarding infertility. My final recommendations will be communicated back to the requesting physician by way of shared Medical record or letter to requesting physician via [place] mail. 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 Her is 28 years old and never established a . She has amenorrhea. LMP 01/26. Negative Provera withdrawal 09/26. She get headaches but denies visual changes, hirsutism, galactorrhea or hot flushes. She was tx'd w/ Clomid 50 AND metformin x 1 cycle w/o ovulation. US - >1 yr ago, nl but left ovary not seen per pt MEDICAL HISTORY - negative MEDICATIONS: PNV SURGICAL HISTORY - negative FAMILY HISTORY - father: s/p kidney transplant (? cause) HTN SOCIAL HISTORY - no smoking or etoh PAP - 10/27 normal per pt ASSESSMENT - primary infertility, amenorrhea PLAN - TANDS, rubella, varicella, TSH, prolactin, testosterone, FSH, E2, a1c, vit D briefly discussed tx options based on if labs are c/w anovulation, hypothalamic amenorrhea or POI I spent a total of 30 minutes which included preparing to see the patient, zvcf-wu-qieu patient care, completing clinical documentation, obtaining and/or reviewing separately obtained history, counseling and educating the patient/family/caregiver, and ordering medications, tests, or procedures. Monica Torres MD [facility] History of Present illness Narrative* Monica Torres MD - 12/30/2021 1:23 PM EDT Consultation requested by Dr. Longo for an opinion regarding infertility. My final recommendations will be communicated back to the requesting physician by way of shared Medical record or letter torequesting physician via [place] mail. 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 Her is 28 years old and never established a . She has amenorrhea. LMP 01/26. Negative Provera withdrawal 09/26. She get headachesbut denies visual changes, hirsutism, galactorrhea or hot flushes. She was tx'd w/ Clomid 50 & metformin x 1 cycle w/o ovulation. US - >1 yr ago, nl but left ovary not seen per pt MEDICAL HISTORY - negative MEDICATIONS: PNV SURGICAL HISTORY - negative FAMILY HISTORY - father: s/p kidney transplant (? cause) HTN SOCIAL HISTORY - no smoking or etoh PAP - 10/27 normal per pt ASSESSMENT - primary infertility, amenorrhea PLAN - T&S, rubella, varicella, TSH, prolactin, testosterone, FSH, E2, a1c, vit D briefly discussed tx options based on if labs are c/w anovulation, hypothalamic amenorrhea or POI I spent a total of 30 minutes which included preparing to see the patient, twxx-zc-wkgm patient care, completing clinical documentation, obtaining and/or reviewing separately obtained history, counseling and educating the patient/family/caregiver, and ordering medications, tests, or procedures. Moncia Torres MD letter to Dr. Longo documented in this encounterOhio[facility]04-22-2022 Evaluation note* Encounter Date Diagnosis Assessment Notes Treatment Notes Treatment Clinical Notes Aug, Contact with and (suspected) exposure to other viral communicable diseases (ICD-10 - Z20.828) Aug, Viral URI with cough (ICD-10 - J06.9) Advised patient that Influenza A/B, rapid COVID antigen, and Strep test were negative. Discussed diagnosis with patient. Will send in rx of [place] and Flonase to use as directed. Encouraged supportive care, including Tylenol/Motrin as needed for body aches/fever, increase fluids and rest, use of cool mist humidifier. Follow-up with PCP if symptoms do not improve. Immediate eval if respiratory distress, SOB, difficulty breathing, severe headache and neck pain/stiffness, rash, abdominal pain, N/V, poor PO intake, dehydration, lethargy, fevers that do not reduce with antipyretic or if any other concerning symptoms as reviewed on patient education handout. Patient verbalizes understanding and is agreeable to treatment plan. Patient left in stable condition Aug, Other Additional time spent conducting pre-visit phone call, screening for symptoms, instructions on social distancing, application and removal of PPE, and cleaning of examination room, equipment and supplies was preformed. Patient education given for testing methodology and results. Patient care instructions given in writting by [facility] Care At Home document [facility] Other Evaluation + Plan note No data available for this section [facility] evaluation note* Diagnosis Primary amenorrhea- Primary Absence of menstruation documented in this encounter [facility]* Diagnosis Primary amenorrhea- Primary Absence of menstruation documented in this encounter [facility] general Narrative - Reported* Type Description Date Surgical History wisdom teeth [facility] Other Progress note No data available for this section [facility] Summary Purpose Family History No Family History Records FoundNo Family History Records FoundNo Family History Records FoundNo Family History Records FoundNo Family History Records Found Advance Directives No Advanced Directives Records FoundNo Advanced Directives Records FoundNo Advanced Directives Records FoundNo Advanced Directives Records FoundNo Advanced Directives Records Found Additional Source Comments REASON FOR VISIT (unrecogniz ed section and content) Reason Comments New Patient Infertility Reason Comments Amenorrhea Reason Comments Appointment Source Comments (unrecognize d section and content) In the event this informatio n is protected by the Federal Confidentiality of Alcohol and Drug Abuse Patient Records regulations: The Federal rules restrict any use of the information to criminally investigate or prosecute any alcohol or drug abuse patient.[facility] CenterIn the event this information is protected by the Federal Confidentiality of Alcohol and Drug Abuse Patient Records regulations: The Federal rules restrict any use of the information to criminally investigate or prosecute any alcohol or drug abuse patient.[facility] CenterIn the event this information is protected by the Federal Confidentiality of Alcohol and Drug Abuse Patient Records regulations: The Federal rules restrict any use of the information to criminally investigate or prosecute any alcohol or drug abuse patient.[facility] CenterIn the event this information is protected by the Federal Confidentiality of Alcohol and Drug Abuse Patient Records regulations: The Federal rules restrict any use of the information to criminally investigate or prosecute any alcohol or drug abuse patient.[facility] Care Teams (unrecognized sec tion and content) Building Energy Consultant Relationship Specialty Start Date [place] [address] Referring Obstetrics 11/16/21 Building Energy Consultant Relationship Specialty Start Date [place] [address] Referring Obstetrics 11/16/21 Building Energy Consultant Relationship Specialty Start Date End [place] [address] Referring Obstetrics 11/16/21 Building Energy Consultant Relationship Specialty Start [place] [address] Referring Obstetrics 11/16/21 INFORMATION SOURCE (unrecogn ized section and content) DATE CREATED AUTHOR 02/06/2022 [facility] DATE CREATED AUTHOR AUTHOR'S ORGANIZ ATION 09/21/2022 [facility] DATE CREATED AUTHOR AUTHOR'S ORGANIZ ATION 10/15/2022 [facility] DATE CREATED AUTHOR AUTHOR'S ORGANIZ ATION 04/23/2023 [facility] DATE CREATED AUTHOR AUTHOR'S ORGANIZ ATION 08/03/2023 [facility] dical Specialists [facility] FOR RECORDS PERTAINING TO PATIENTS WHO ARE OR HAVE BEEN ENROLLED IN A CHEMICAL DEPENDENCY/SUBSTANCEABUSE PROGRAM, SOME INFORMATION MAY BE OMITTED. This clinical summary was aggregated from multiple sources. Caution should be exercised in using it in the provision of clinical care. This summary normalizes information from multiple sources, and as a consequence, information in this document may materially change the coding, format and clinical context of patient data. In addition, data may be omitted in some cases. CLINICAL DECISIONS SHOULD BE BASED ON THE PRIMARY CLINICAL RECORDS. [employer] provides no warranty or guarantee of the accuracy or completeness of information in this document.
--- NOTE | 2023-08-08 08:09 | US_ITS ---
The [address] [address] Patient Name: MATT RICKS MRN: [id number] date: 1990 Sex: F Assigned Patient Location: US Current Patient Location: US Accession/Order Number: [id number] Exam Date: 08/08/2023 08:10 Report Date: 08/08/2023 15:13 At the request of: URSULA MONSON Procedure: US right upper quadrant EXAMINATION: US right upper quadrant HISTORY: Right upper quadrant pain R10.11 COMPARISON: CT abdomen pelvis 04/15/2022 TECHNIQUE: Transabdominal evaluation of the right upper quadrant. FINDINGS: LIVER: Fatty infiltration. Color Doppler demonstrates patent hepatic veins. PORTAL VEIN: Duplex Doppler demonstrates normal hepatopetal flow pattern with flow velocity averaging 27 cm/s. GALLBLADDER: Gallbladder is filled with stones. No abnormal gallbladder wall thickening or free fluid. Negative sonographic Maldonado's sign. BILIARY: No abnormal dilation or stones. Common bile duct diameter is within normal limits. PANCREASE: No visible mass, abnormal atrophy, or duct dilation. KIDNEY: No hydronephrosis. No visible mass or stones. Size: 9.8 x 5.4 x 5.4 cm. US/US right upper quadrant IMPRESSION: 1. Cholelithiasis. No acute findings to account for patient's symptoms. Electronically authenticated by: NIKOLAS CRISTINA Date: 08/08/2023 15:13
[2023-08-08 08:54] LABS: Basophils Absolute Auto 0.1 10^3/uL (0.0-0.1); Basophils Percent Auto 0.6 % (0.2-2.0); Eosinophils Absolute Auto 0.2 10^3/uL (0.0-0.7); Eosinophils Percent Auto 2.2 % (0.9-7.0); Hematocrit 40.6 % (36.0-48.0); Hemoglobin 12.7 g/dL (12.0-16.0); Immature Granulocytes Abs Auto 0.03 10^3/uL (0.00-0.03); Immature Granulocytes Pct Auto 0.3 % (0.0-0.5); Lymphocytes Absolute Auto 2.6 10^3/uL (1.2-3.8); Lymphocytes Percent Auto 25.6 % (20.5-60.0); Mean Corpuscular HGB Conc 31.3 g/dL (29.9-35.2); Mean Corpuscular Volume 83.2 fL (81.0-99.0); Mean Platelet Volume 10.4 fL (9.5-13.5); Monocytes Absolute Auto 0.6 10^3/uL (0.3-0.8); Monocytes Percent Auto 5.9 % (1.7-12.0); Neutrophils Absolute Auto 6.6 10^3/uL (1.4-6.5); Neutrophils Percent Auto 65.4 % (43.0-75.0); Platelet Count 350 10^3/uL (150-450); Red Blood Count 4.88 10^6/uL (4.20-5.40); Red Cell Distribution Width 14.5 % (11.0-15.0); White Blood Count 10.1 10^3/uL (4.0-11.0)
[2023-08-08 09:33] LABS: Estimated Average Glucose 123 mg/dL; Glycohemoglobin A1C 5.9 % (4.5-6.2)
[2023-08-08 09:47] LABS: Alanine Aminotransferase 52 U/L (14-59); Albumin Globulin Ratio 0.7; Albumin Level 3.3 g/dL (3.4-5.0); Alkaline Phosphatase 95 U/L (46-116); Anion Gap 14.1; Aspartate Amino Transferase 24 U/L (15-37); Bilirubin Total 0.4 mg/dL (0.2-1.0); Carbon Dioxide 25.8 mmol/L (21.0-32.0); Chloride 103 mmol/L (98-107); Chol HDL Ratio 3.9; Cholesterol 188 mg/dL (<=200); Estimated GFR (African America >60 (>=60); Estimated GFR (Non-African Ame >60 (>=60); Globulin 4.6 g/dL; Glucose 100 mg/dL (74-106); HDL Cholesterol 48 mg/dL (40-60); Potassium 3.9 mmol/L (3.5-5.1); Sodium 139 mmol/L (136-145); Total Protein 7.9 g/dL (6.4-8.2); Triglycerides 75 mg/dL (<=150)
== END 2023-08-08 08:01 | disposition home or self-care (01) ==
LOC: US 08:00
PROVIDERS: PCP Nurse Practitioner; Visit Provider Nurse Practitioner
DX: R10.11 Right upper quadrant pain (principal); R73.03 Prediabetes; K80.20 Calculus of gallbladder without cholecystitis without obstruction
CPT/HCPCS: 36415; 76705; 80053; 80061; 83036; 85025

== ENCOUNTER 2023-08-24 13:24 | Outpatient (OUT) | payer BC, SELFPAY ==
--- NOTE | 2023-08-24 13:31 | XR_ITS ---
The [address] [address] Patient Name: MATT RICKS MRN: [id number] date: 1990 Sex: F Assigned Patient Location: [facility] Current Patient Location: [facility] Accession/Order Number: [id number] Exam Date: 08/24/2023 14:05 Report Date: 08/24/2023 14:28 At the request of: ANAM KIRKLAND Procedure: XR chest 2V EXAM: XR chest 2V HISTORY: Preop exam COMPARISON: 11/21/2021 TECHNIQUE: Upright PA and lateral chest x-ray FINDINGS: The heart is not enlarged and the vasculature is not distended. No acute infiltrate, effusion or pneumothorax is identified. The osseous structures are grossly intact. XR/XR chest 2V IMPRESSION: No acute infiltrate or evidence of cardiac decompensation. The overall appearance of the chest is essentially unchanged. Electronically authenticated by: DIANNE MIRANDA Date: 08/24/2023 14:28
== END 2023-08-24 13:25 | disposition home or self-care (01) ==
LOC: PST 13:26
PROVIDERS: PCP Nurse Practitioner; Visit Provider Surgery
DX: Z01.810 Encounter for preprocedural cardiovascular examination (principal); K80.20 Calculus of gallbladder without cholecystitis without obstruction
CPT/HCPCS: 71046

== ENCOUNTER 2023-08-29 06:40 | Day surgery (SDC) | payer BC, SELFPAY ==
[2023-08-24 13:41] VITALS: BP 144/83; PULSE 89; TEMP 36.3; O2SAT 97; BMI 51.6
[2023-08-29] VITALS (22 sets, daily range): BP systolic 103–178; BP diastolic 62–101; PULSE 72–97; TEMP 36.1–36.2; O2SAT 83–100; BMI 50.8
--- OUTSIDE RECORDS SUMMARY | 2023-08-29 06:43 | XMS_ITS | CCD ---
Author Organization [facility] Care Team Providers Care Outpatient Surgery Rn Name Role Phone Luciana Flores Unavailable Imtiaz Longo Unavailable MONICA TORRES Attending Unavailable BRIANNA TREJO Referring Unavailable MONICA TORRES Attending Unavailable MONICA TORRES Referring Unavailable AICHHOLZ, URSULA J Primary Care Physician DR KIRTI CROCKETT Consulting Unavailable BON, DR KIRTI Felton Attending Unavailable AICHHOLZ, HEAVY EQUIPMENT SERVICE TECHNICIAN URSULA Primary Care Unavailable DR KIRTI CROCKETT Admitting Unavailable LUDMILA WINKLER Consulting Unavailable AICHHOLZ, HEAVY EQUIPMENT SERVICE TECHNICIAN URSULA Primary Care Unavailable PAY ., DR ANDERSON Consulting Unavailable PAY ., DR ANDERSON Attending Unavailable PAY ., DR ANDERSON Admitting Unavailable AICHHOLZ, HEAVY EQUIPMENT SERVICE TECHNICIAN URSULA Primary Care Unavailable ANGELA ., DR MONDRAGON Consulting Unavailable ANGELA ., DR MONDRAGON Attending Unavailable ANGELA ., DR MONDRAGON Admitting Unavailable AICHHOLZ, HEAVY EQUIPMENT SERVICE TECHNICIAN URSULA Attending Unavailable AICHHOLZ, HEAVY EQUIPMENT SERVICE TECHNICIAN URSULA Admitting Unavailable AICHHOLZ, HEAVY EQUIPMENT SERVICE TECHNICIAN URSULA Primary Care Unavailable AICHHOLZ, HEAVY EQUIPMENT SERVICE TECHNICIAN URSULA Consulting Unavailable AICHHOLZ, HEAVY EQUIPMENT SERVICE TECHNICIAN URSULA Primary Care Unavailable ANGELA ., DR MONDRAGON Consulting Unavailable ANGELA ., DR MONDRAGON Attending Unavailable ANGELA ., DR MONDRAGON Admitting Unavailable DORIE, DR BORIS Dave Consulting Unavailable AICHHOLZ, HEAVY EQUIPMENT SERVICE TECHNICIAN URSULA Attending Unavailable AICHHOLZ, HEAVY EQUIPMENT SERVICE TECHNICIAN URSULA Admitting Unavailable AICHHOLZ, HEAVY EQUIPMENT SERVICE TECHNICIAN URSULA Primary Care Unavailable AICHHOLZ, HEAVY EQUIPMENT SERVICE TECHNICIAN URSULA Consulting Unavailable Ismael Iqbal Consulting Unavailable AICHHOLZ, HEAVY EQUIPMENT SERVICE TECHNICIAN URSULA Attending Unavailable AICHHOLZ, HEAVY EQUIPMENT SERVICE TECHNICIAN URSULA Admitting Unavailable AICHHOLZ, HEAVY EQUIPMENT SERVICE TECHNICIAN URSULA Primary Care Unavailable AICHHOLZ, HEAVY EQUIPMENT SERVICE TECHNICIAN URSULA Consulting Unavailable AICHHOLZ, HEAVY EQUIPMENT SERVICE TECHNICIAN URSULA Attending Unavailable AICHHOLZ, HEAVY EQUIPMENT SERVICE TECHNICIAN URSULA Admitting Unavailable AICHHOLZ, HEAVY EQUIPMENT SERVICE TECHNICIAN URSULA Primary Care Unavailable AICHHOLZ, HEAVY EQUIPMENT SERVICE TECHNICIAN URSULA Consulting Unavailable KARASIK ., DR FAIRBANKS Consulting Unavailabl e KARASIK ., DR FAIRBANKS Attending Unavailabl e AICHHOLZ, HEAVY EQUIPMENT SERVICE TECHNICIAN URSULA Primary Care Unavailable KARASIK ., DR FAIRBANKS Admitting Unavailabl e AICHHOLZ, HEAVY EQUIPMENT SERVICE TECHNICIAN URSULA Admitting Unavailable AICHHOLZ, HEAVY EQUIPMENT SERVICE TECHNICIAN URSULA Primary Care Unavailable AICHHOLZ, HEAVY EQUIPMENT SERVICE TECHNICIAN URSULA Consulting Unavailable AICHHOLZ, HEAVY EQUIPMENT SERVICE TECHNICIAN URSULA Attending Unavailable Raj West Attending UnavailRaj Gage Admitting Unavailabl e NO FAMILY, PHYSICIAN Primary Care Unavailable Audi ANGELA Attending Unavailable Audi ANGELA Attending Unavailable ADA SELF Attending Unavailable AICHOLZ, URSULA Attending Unavailable ANAM KIRKLAND Attending Unavailable AICHOLZ, URSULA Referring Unavailable Allergies Allergy Classification Reported Allergen(s) Allergy Type Date of Onset Reaction(s) Facility (7 sources) [place]; Translations: [STRAWBERRIES] Food Intolerance 12-31-19 22 Hives, Eruption of skin (disorder) [facility] (3 sources) Penicillin; Translations: [penicillin] Drug Allergy 04-12-20 22 Unknown (qualifier value) [facility] (1 source) Penicillin V Drug Allergy rash [employer] Other (1 source) strawberry allergenic extract Drug Allergy [facility] Repository Medications Current Medications Medication Drug Class(es) Dates Sig (Normalized) Sig (Original) brompheniramine maleate 0.4 mg/ml / dextromethorphan hydrobromide 2 mg/ml / pseudoephedrine hydrochloride 6 mg/ml oral solution (1 source) alpha-Adrenergic Agonist, Uncompetitive S-dzrrni-J-aspartate Receptor Antagonist, Sigma-1 Agonist Start: 04-08-2022 take 10 mL by mouth every six hours Pseudoeph-Bromp hen-DM 30-2-10 MG/5ML 10 mL Orally every 6 hours for 5 days Apr, Active dextromethorphan hydrobromide 1.5 mg/ml / pyrilamine maleate 1.5 mg/ml oral solution (1 source) Uncompetitive H-sggwfo-W-aspartate Receptor Antagonist, Sigma-1 Agonist Start: 08-27-2021 take 10 mL by mouth every eight hours [place] DM 7.5-7.5 MG/5ML 10 mL Orally every [...] Comment on above: Take 2 tablets by [facility] as directed for 5 days. days 3-7 24 hr metFORMIN hydrochloride 750 mg extended release oral tablet (5 sources) Biguanide Start: 04-04-2022 take 1 mg by mouth once daily metformin 750 mg ER Tab mg tab(s), Oral, Daily, Refills(s) 0 Start Date: 04/04/22 Status: Ordered Start: 01-14-2022 take 2 tablets by [facility] once daily at breakfast metFORMIN ER (GLUCOPHAGE XR) 750 mg 24 hr tablet Take 2 tablets by mouth daily with breakfast. 90 tablet 3 01/14/2022 Active metFORMIN HCl Ac tive Comment on above: Take 2 tablets by [facility] daily with breakfast. mupirocin 0.02 mg/mg topical [...] 11-22-2021 Episodic Other aftercare (1 source) Other alf (current) drug therapy; Translations: [OTH VASCULAR TECHNICIAN CURRENT DRUG THERAPY] Onset: 05-23-2022 Episodic Other aftercare (1 source) [facility] (current) use of oral hypoglycemic drugs; Translations: [RETIREMENT USE ORAL HYPOGLYCEMIC DX] Onset: 05-23-2022 Episodic [...] these instructions at home: Medicines ? Take dlkf-wwg-jpuzlzj and prescription medicines only as told by [...] the blood stops without treatment. ? Take lejd-khu-wyxgkmr and prescription medicines only as told by your health care provider. ? Drink enough fluid to keep your urine pale yellow. This information is not intended to replace advice given to you by your health care provider. Make sure you discuss any questions you have with your health care provider. Document Revised: 12/23/2020 Document Reviewed: 12/23/2020 [employer] Patient Education ? 2022 [employer] Normal [facility] Urology Office/Clinic Noteon 12-15-2023 Urology Office/Clinic Note Chief Complaint 1yr KUB [...] 12/21/21 shows trace-lysed blood, 2-5 RBCs. UA 11/30/21 shows trace-intact blood, 2-5 RBCs. S/p cysto 04/18/22 neg for b.t. or lesions. Urine cytology 03/2022 negative. UA today negative. Denies visible blood in urine. 3. Family history of kidney disease (Z84.1: Family history of disorders of kidney and ureter) Pt's father has kidney disease and had a kidney transplant in October. Follow-up With When Contact Information ALESSANDRO EGAN, Audi Felton, URL [facility] [place] [address]- Additional Instructions: 1 yr w/ KUB Patient [...] Protein Urine Dipstick: Trace (04/21/23 09:54:00) Specific [place] Urine Dipstick: >=1.030 (04/21/23 09:54:00) Urine Appearance Urine Dipstick: Clear (04/21/23 09:54:00) Urine Color Urine Dipstick: Yellow (04/21/23 09:54:00) Urobilinogen Urine Dipstick: Normal 0.2-1 EU/dl (04/21/23 09:54:00) pH Urine Dipstick: 6 (04/21/23 09:54:00) Normal [facility] Comment on above: Result Comment: Elec tronically Signed By: Audi ANGELA MD\.br\Date and Time Signed: 04/21/23 10:39 EST\.br\Electronically Co-Signed By: Armida Moreira\.br\Date and Time Co-Signed: 04/21/23 10:38 EST RAD - MISCon 04-19-2023 RAD - MISC [id number] Normal [facility] Covid-19 PCR (CVD[facility])on 09-05 SARS-CoV-2 (COVID-19) RNA CRISTEL+probe Ql (Unsp spec) Not detected Normal NOT DETECTED [facility] Comment on above: Performed By: #### C VDAGS #### [facility] [address] [place] [address] Dr. Alexei Gonzales INFLUENZA A AND B AGon 09-20 INFLUANEGH SEE BELOW Normal [facility] Comment on above: Result Comment: Nega tive for Flu A protein angiten. Infection due to Flu A cannot be ruled out. Flu A angiten in the sample may be below the detection limit of the test. Performed By: #### I NFLUAB #### [facility] [address] [place] [address] Dr. Alexei Gonzales [facility] SEE BELOW Normal [facility] Comment on above: Result Comment: Nega tive for Flu B protein antigen. Infection due to Flu B cannot be ruled out. Flu B antigen in the sample may be below the detection limit of the test. Performed By: #### I NFLUAB #### [facility] [address] [place] [address] Dr. Alexei Gonzales INFLUENZA A AG Negative Normal NEGATIVE SEE COMMENT [facility] Comment on above: Performed By: #### I NFLUAB #### [facility] [address] [place] [address] Dr. Alexei Gonzales INFLUENZA B AG Negative Normal NEGATIVE SEE COMMENT [facility] Comment on above: Performed By: #### I NFLUAB #### [facility] [address] [place] [address] Dr. Alexei Gonzales SYMPTOMATIC COVID-19 ANTIGEN on 09-20-2022 EUA Statement SEE BELOW Normal [facility] Comment on above: Result Comment: This [...] sooner. Performed By: #### C VDAGS #### [facility] [address] [place] [address] Dr. Alexei Gonzales SARS-CoV-2 (COVID-19) RNA CRISTEL+probe Ql (Unsp spec) Negative Normal NEGATIVE [facility] Comment on above: Performed By: #### C VDAGS #### [facility] [address] [place] [address] Dr. Alexei Gonzales CULTURE WOUNDon 08-31-2022 CULTURE WOUND Culture Observations : ANAEROBE PRESENT. Isolate 1 Peptoniphilus lacrimalis Light growth of Normal [facility] Comment on above: Performed By: #### C VDAGS #### [facility] [address] [place] [address] Dr. Alexei Gonzales CBC AUTO DIFFon 05-13-2022 BASO # 0.1 103/ul Normal 0.0-0.[address] [facility] Comment on above: Performed By: #### C BC #### [facility] [address] [place] [address] Dr. Alexei Gonzales Basophils/100 WBC (Bld) 0.7 % Normal 0.2-2.0 [facility] Comment on above: Performed By: #### C BC #### [facility] [address] [place] [address] Dr. Alexei Gonzales EO # 0.0 103/ul Normal 0.0-0.[address] [facility] Comment on above: Performed By: #### C BC #### [facility] [address] [place] [address] Dr. Alexei Gonzales Eosinophils/100 WBC (Bld) 0.1 % Critically low 0.9-7.0 [facility] Comment on above: Performed By: #### C BC #### [facility] [address] [place] [address] Dr. Alexei Gonzales Erythrocyte distribution width (RBC) [Ratio] 14.6 % Normal 11.0-15.0 [facility] Comment on above: Performed By: #### C BC #### [facility] [address] [place] [address] Dr. Alexei Gonzales Hematocrit (Bld) [Volume fraction] 38.5 % Normal 36.0-48.0 [facility] Comment on above: Performed By: #### C BC #### [facility] [address] [place] [address] Dr. Alexei Gonzales Hemoglobin (Bld) [Mass/Vol] 13.0 g/dL Normal 12.0-16.0 [facility] Comment on above: Performed By: #### C BC #### [facility] [address] [place] [address] Dr. Alexei Gonzales IG # 0.04 10e3/ul Critically high 0.00-0.03 [facility] Comment on above: Performed By: #### C BC #### [facility] [address] [place] [address] Dr. Alexei Gonzales IG % 0.5 % Normal 0.0-0.5 [facility] Comment on above: Performed By: #### C BC #### [facility] [address] [place] [address] Dr. Alexei Gonzales LYMPH # 0.3 103/ul Critically low 1.2-3.8 [facility] Comment on above: Performed By: #### C BC #### [facility] [address] [place] [address] Dr. Alexei Gonzales Lymphocytes/100 WBC (Bld) 4.6 % Critically low 20.5-60.0 [facility] Comment on above: Performed By: #### C BC #### [facility] [address] [place] [address] Dr. Alexei Gonzales MANUAL DIFF REQ NO Normal [facility] Comment on above: Performed By: #### C BC #### [facility] [address] [place] [address] Dr. Alexei Gonzales MCH (RBC) [Entitic mass] 27.0 pg Normal 26.7-34.0 [facility] Comment on above: Performed By: #### C BC #### [facility] [address] [place] [address] Dr. Alexei Gonzales MCHC (RBC) [Mass/Vol] 33.8 g/dL Normal 29.9-35.2 [facility] Comment on above: Performed By: #### C BC #### [facility] [address] [place] [address] Dr. Alexei Gonzales MCV (RBC) [Entitic vol] 79.9 fL Critically low 81.0-99.0 [facility] Comment on above: Performed By: #### C BC #### [facility] [address] [place] [address] Dr. Alexei Gonzales MONO # 0.7 103/ul Normal 0.3-0.8 [facility] Comment on above: Performed By: #### C BC #### [facility] [address] [place] [address] Dr. Alexei Gonzales Monocytes/100 WBC (Bld) 10.1 % Normal 1.7-12.0 [facility] Comment on above: Performed By: #### C BC #### [facility] [address] [place] [address] Dr. Alexei Gonzales NEUT # 6.2 103/ul Normal 1.4-6.5 [facility] Comment on above: Performed By: #### C BC #### [facility] [address] [place] [address] Dr. Alexei Gonzales Neutrophils/100 WBC (Bld) 84.0 % Critically high 43.0-75.0 [facility] Comment on above: Performed By: #### C BC #### [facility] [address] [place] [address] Dr. Alexei Gonzales Platelet mean volume (Bld) [Entitic vol] 10.2 fL Normal 9.5-13.5 [facility] Comment on above: Performed By: #### C BC #### [facility] [address] [place] [address] Dr. Alexei Gonzales PLT 266 103/ul Normal 150-[address] [facility] Comment on above: Performed By: #### C BC #### [facility] [address] [place] [address] Dr. Alexei Gonzales RBC 4.82 106/ul Normal 4.20-5.[address] [facility] Comment on above: Performed By: #### C BC #### [facility] [address] [place] [address] Dr. Alexei Gonzales WBC 7.3 103/ul Normal 4.0-11.[address] [facility] Comment on above: Performed By: #### C BC #### [facility] [address] [place] [address] [address] [address] Alexei Gonzales Covid-19 PCR ([facility])on SARS-CoV-2 (COVID-19) RNA CRISTEL+probe Ql (Unsp spec) Not detected Normal NOT DETECTED [facility] Comment on above: Result Comment: This test is not yet approved or cleared by the [place] FDA. When there are no FDA-approved or cleared tests available, and other criteria are met, FDA can make tests available under an emergency access mechanism called an Emergency Use Authorization (EUA). The EUA for this test is supported by the [employer] Teacher of Health and Human Service's (HHS's) declaration [...] SARS-CoV-2. Performed By: #### C BC #### [facility] [address] [place] [address] [address] [address] Alexei Gonzales GROUP A STREP CULTUREon S. pyogenes Ag Ql (Unsp spec) Culture Observations: NEGATIVE FOR GROUP A STREPTOCOCCUS. Normal [facility] Comment on above: Performed By: #### C VDAGS #### [facility] [address] [place], [place] [address] Dr. Alexei Gonzales INFLUENZA A AND B AGon 05-13 INFLUANEGH SEE BELOW Normal [facility] Comment on above: Result Comment: Nega tive for Flu A protein angiten. Infection due to Flu A cannot be ruled out. Flu A angiten in the sample may be below the detection limit of the test. Performed By: #### C BC #### [facility] [address] [place] [address] Dr. Alexei Gonzales [facility] SEE BELOW Normal [facility] Comment on above: Result Comment: Nega tive for Flu B protein antigen. Infection due to Flu B cannot be ruled out. Flu B antigen in the sample may be below the detection limit of the test. Performed By: #### C BC #### [facility] [address] [place] [address] Dr. Alexei Gonzales INFLUENZA A AG Negative Normal NEGATIVE SEE COMMENT [facility] Comment on above: Performed By: #### C BC #### [facility] [address] [place] [address] Dr. Alexei Gonzales INFLUENZA B AG Negative Normal NEGATIVE SEE COMMENT [facility] Comment on above: Performed By: #### C BC #### [facility] [address] [place] [address] Dr. Alexei Gonzales PREG HCG QUALon 05-13-2022 , QUAL Negative Normal NEGATIVE [facility] Comment on above: Performed By: #### C VDAGS #### [facility] [address] [place] [address] Dr. Alexei Gonzales PROF 14(COMP METB)on 023 Albumin [Mass/Vol] 3.6 g/dL Normal 3.4-5.0 [facility] Comment on above: Performed By: #### C MP #### [facility] [address] [place] [address] Dr. Alexei Gonzales Albumin/Globulin [Mass ratio] 0.8 {ratio} Normal [facility] Comment on above: Performed By: #### C MP #### [facility] [address] [place] [address] Dr. Alexei Gonzales ALP [Catalytic activity/Vol] 95 U/L Normal 46-[address] [facility] Comment on above: Performed By: #### C MP #### [facility] [address] [place] [address] Dr. Alexei Gonzales ALT [Catalytic activity/Vol] 62 U/L Critically high 14-59 [facility] Comment on above: Performed By: #### C MP #### [facility] [address] [place] [address] [address] Alexei Gonzales Anion gap [Moles/Vol] 11.2 mmol/L Normal [facility] Comment on above: Performed By: #### C MP #### [facility] [address] [place] [address] [address] Alexei Gonzales AST [Catalytic activity/Vol] 44 U/L Critically high 15-37 [facility] Comment on above: Performed By: #### C MP #### [facility] [address] [place] [address] [address] Alexei Gonzales Bilirubin [Mass/Vol] 0.3 mg/dL Normal 0.2-1.[address] [facility] Comment on above: Performed By: #### C MP #### [facility] [address] [place] [address] Dr. Alexei Gonzales Calcium [Mass/Vol] 8.9 mg/dL Normal 8.5-10.1 [facility] Comment on above: Performed By: #### C MP #### [facility] [address] [place] [address] Dr. Alexei Gonzales Chloride [Moles/Vol] 100 mmol/L Normal 98-[address] [facility] Comment on above: Performed By: #### C MP #### [facility] [address] [place] [address] Dr. Alexei Gonzales CO2 [Moles/Vol] 26.4 mmol/L Normal 21.0-32.0 [facility] Comment on above: Performed By: #### C MP #### [facility] [address] [place] [address] Dr. Alexei Gonzales Creatinine [Mass/Vol] 0.98 mg/dL Normal 0.55-1.[address] [facility] Comment on above: Performed By: #### C MP #### [facility] [address] [place] [address] [address] Alexei Gonzales EGFR-AF KYRGYZ >60 Normal >=60 [facility] Comment on above: Performed By: #### C MP #### [facility] [address] [place] [address] Dr. Alexei Gonzales EGFR-NON AF KYRGYZ >60 Normal >=60 [facility] Comment on above: Performed By: #### C MP #### [facility] [address] [place] [address] Dr. Alexei Gonzales Globulin (S) [Mass/Vol] 4.3 g/dL Normal [facility] Comment on above: Performed By: #### C MP #### [facility] [address] [place] [address] [address] Alexei Gonzales Glucose [Mass/Vol] 125 mg/dL Critically high 74-106 [facility] Comment on above: Performed By: #### C MP #### [facility] [address] [place] [address] [address] Alexei Gonzales Potassium [Moles/Vol] 3.6 mmol/L Normal 3.5-5.1 [facility] Comment on above: Performed By: #### C MP #### [facility] [address] [place] [address] [address] Alexei Gonzales Protein [Mass/Vol] 7.9 g/dL Normal 6.4-8.2 [facility] Comment on above: Performed By: #### C MP #### [facility] [address] [place] [address] Dr. Alexei Gonzales Sodium [Moles/Vol] 134 mmol/L Critically low 136-145 [facility] Comment on above: Performed By: #### C MP #### [facility] [address] [place] [address] [address] Alexei Gonzales Urea nitrogen [Mass/Vol] 12.0 mg/dL Normal 7.0-18.0 [facility] Comment on above: Performed By: #### C MP #### [facility] [address] [place] [address] [address] Alexei Gonzales Urea nitrogen/Creatinin e [Mass ratio] 12.2 mg/mg Normal [facility] Comment on above: Performed By: #### C MP #### [facility] [address] [place] [address] [address] Alexei Gonzales STREPT SCREENon 05-13-2022 STREP SCREEN A Negative Normal NEGATIVE [facility] Comment on above: Performed By: #### C VDAGS #### [facility] [address] [place] [address] ABD/PELV WO W [...] BORIS OSHEA Date: 2022-04-15 11:[address] [facility] COVID/FLU/RSV RT-PCRon 04-08 SARS-CoV-2 (COVID-19) RNA CRISTEL+probe Ql (Unsp spec) Positive [employer] Other COVID/FLU/RSV RT-PCR Negative [employer] [facility] Telephone (REITW) -- MATT RICKS ([id number]) 1990 F Date Time Provider Department 01/25/22 MONICA TORRES During your visit today, we recorded the following information about you: Erica Oscar RN 01/25/2022 9:52 AM Signed Routing to Non Jose L ivf Pool to refuse provera refill Just filled 1 weeks ago Erica Oscar RN January 25, 2022 9:52 AM Dilcia Dawn APRN.HEAVY EQUIPMENT SERVICE TECHNICIAN 01/25/2022 10:09 AM Signed Patient's request for [...] Encounter Status:Closed by DILCIA DAWN on 01/25/22 [facility] Don 01-18-2022 [facility] Telephone (WHQ) -- JAUNMATT KATZ ([id number]) 1990 F Date Time Provider Department 01/18/22 LACEY TEMPLE During your visit today, we recorded the following information about you: Luciana Dennis 01/18/2022 10:31 AM Signed Lacey Brown MD P Whi A10 Scheduling Pool New PCOS patient [...] Status:Closed by LUCIANA DENNIS on 01/18/22 Normal [facility] XR KUB 1 VIEWon 01-17-2022 XR [...] by: ISMAEL IQBAL Date: 2022-01-17 13:05 Normal [facility] 25(OH)D3 SerPl-ncon 2021 25-hydroxyvitamin D3 [Mass/Vol] 23.4 ng/mL Low 31.0-80.0 [facility] Comment on above: Order Comment: Rayne men Type: BLOOD SPECIMEN Ordering Facility: Address: [address] [place] [address] Result Comment: Clas sification of 25 [place] Vitamin D status: Deficiency/Insufficiency: < or = 30 ng/ml. Sufficiency/Optimal Levels: 31-80 ng/mL Toxicity: > 100 ng/mL. Test performed by chemiluminescent immunoassay. Performed By: #### V ZVG2, 1989-07, XOCHITL #### [facility] CLIA [id number] [address] [place], [place] [address]K [address] [facility] CNOVon 12-30-2021 CNOV Office Visit (REISO) -- MATT RICKS ([id number]) 1990 F Date Time Provider Department 12/30/21 1:00 PM MONICA TORRES During your visit today, we recorded the following information about you: Blood pressure Weight Height Last Period 116/72 136.1 kg 1.626 m 06/17/21 Monica Torres [...] which included preparing to see the patient, [id number] patient care, completing clinical documentation, obtaining and/or reviewing separately obtained history, counseling and educating the patient/family/caregiver, and ordering medications, tests, or procedures. Monica Torres MD letter to Dr. Longo Referring Provider: BRIANNA TREJO [[id number]] Allergies As of Date: 12/30/2021 Noted Allergy Reaction STRAWBERRIES 12/30/2021 4 - Hives Date Reviewed: 12/30/2021 Reviewed by: Cinthia Price Ma - Fully Assessed Reason for Visit: New Patient [172] Infertility [285] Primary Visit Diagnosis:Primary amenorrhea [N91.0] Order(s):TSH BLD [SQTSH] Order #: [id number] FUTURE PROLACTIN BLD [SQPROL] Order #: [id number] FUTURE RUBELLA IGG AB [SQRUBQNT] Order #: [id number] FUTURE VARICELLA ZOSTER IGG [SQVZVG] Order #: [id number] FUTURE VITAMIN D 25 HYDROXY [SQVITD] Order #: [id number] FUTURE TYPE + SCREEN [SQTSCR] Order #: [id number] FUTURE FSH BLD [SQFSH] Order #: [id number] FUTURE ESTRADIOL-17B BLD [SQE2] Order #: [id number] FUTURE HGB A1C [UMYMM4G] Order #: [id number] FUTURE Prescriptions as of 12/30/2021 - PNV no.95/ferrous fum/folic ac ( ORAL) Take by mouth. Problem List As Of Date: 12/30/2021 (None) Encounter Status:Closed by MONICA TORRES on 12/30/21 Normal [facility] Estradiol SerPl-mCncon 12-30 E2 [Mass/Vol] 60 pg/mL Normal [facility] Comment on above: Order Comment: Specanthony putnam Type: BLOOD SPECIMEN Ordering Facility: Address: [address] [place] [address] Result Comment: This test is not suitable [...] 3243 pg/mL Second trimester : 1561 to 52904 pg/mL Third trimester : 8285 to >48326 pg/mL Post-menopausal Estradiol reference range: < 41 pg/mL Reference: 1. Estradiol - E2 (Estradiol III) [package insert V 3.0 Malagasy]. [facility], [place], [place], October 2015. Performed By: #### 3 016-3, 23322-1, 2243-4, 2842-3 #### [facility] CLIA [id number] [address] [place] [address] STATES OF [facility] FSH SerPl-aCncon 12-30-2021 Follitropin Qn 6.4 m[IU]/mL Normal See comment [facility] Comment on above: Order Comment: Speci men Type: BLOOD SPECIMEN Ordering Facility: Address: [address] [place] [address] Result Comment: Refe rence range: Follicular: 3.5-12.5 mIU/mL Midcycle: 4.7-21.5 mIU/mL Luteal: 1.7-7.7 mIU/mL Post Farson: 25.8-134.8 mIU/mL Performed By: #### 3 016-3, 68488-1, 2243-4, 2842-3 #### [facility] CLIA [id number] [address] [place] [address] OF [place] HbA1c (Bld)on 12-30-2021 Average glucose Estimated from glycated hemoglobin (Bld) [Mass/Vol] 120 mg/dL Normal [facility] Comment on above: Order Comment: Rayne putnam Type: BLOOD SPECIMEN Ordering Facility: Address: [address] [place] [address] Result Comment: eAG: (Estimated average glucose) is a calculated value from HgbA1c and is business representative of the average blood glucose level in the last 2-3 month period. Performed By: #### 5 5454-3 #### [facility] CLIA [id number] [address] [place] [address] HbA1c (Bld) [Mass fraction] 5.8 % High 4.3-5.6 [facility] Comment on above: Order Comment: Rayne putnam Type: BLOOD SPECIMEN Ordering Facility: Address: [address] [place] [address] Result Comment: Amer [place] Diabetes Association guidelines indicate that patients with HgbA1c in the range 5.7-6.4% are at increased risk for development of diabetes, and intervention by lifestyle modification may be beneficial. HgbA1c greater or equal to 6.5% is considered diagnostic of diabetes. Performed By: #### 5 5454-3 #### [facility] CLIA [id number] [address] [place] [address] OF [facility] Prolactin SerPl-mCncon 12-30 Prolactin [Mass/Vol] 10.3 ng/mL Normal 4.5-26.8 [facility] Comment on above: Order Comment: Rayne putnam Type: BLOOD SPECIMEN Ordering Facility: Address: [address] [place] [address] Result Comment: Prol actin test is performed using the [facility] Electrochemiluminescence Immunoassay method. Results obtained with different methods or kits cannot be used interchangeably. Performed By: #### 3 016-3, 48347-4, 2243-4, 2842-3 #### [facility] CLIA [id number] [address] [place] [address] [place] RUBELLA IGG ABon 12-30-2021 RUBELLA IGG AB, QUAL Positive Normal Positive [facility] Comment on above: Order Comment: Rayne putnam Type: BLOOD SPECIMEN Ordering Facility: Address: [address] [place] [address] Result Comment: The result suggests recent or past exposure to Rubella virus or history of Rubella vaccination. Positive result may also be seen due to presence of passively-transferred antibodies. Please correlate with patient's history. Performed By: #### V ZVG2, 1988-3, RUBIGG #### [facility] CLIA [id number] [address] [place] [address] [place] TSH SerPl-aCncon 12-30-2021 TSH Qn 2.730 m[IU]/L Normal 0.270-4.200 [facility] Comment on above: Order Comment: Rayne putnam Type: BLOOD SPECIMEN Ordering Facility: Address: [address] [place] [address] Result Comment: If t he patient is , TSH reference range varies by gestational period: First Trimester (weeks 9-12): 0.180-2.990 mIU/L Second Trimester: 0.110-3.980 mIU/L Third Trimester: 0.480-4.710 mIU/L Soham Joaquin et al. A Practical Approach for the Verifications and Determination of Site- and Trimester-Specific Reference Intervals for Thyroid Function tests in . Thyroid, 2019:29:3:412-420. Tavares Mitchell, et al. 2017 Guidelines of the [place] Thyroid Association for the Diagnosis and Management of Thyroid Disease during and the . Thyroid, 2017:27:3:315-389. Performed By: #### 3 016-3, 38261-7, 2243-4, 2842-3 #### [facility] CLIA [id number] [address] [place] [address] [place] TYPE + SCREENon 12-30-2021 HISTORICAL AB SCR STATUS Negative Normal [facility] Comment on above: Order Comment: Speci men Type: BLOOD SPECIMENOrdering Facility: Address: [address] [place] [address] Performed By: #### T SCR ####[facility] BLOOD BANKCLIA [id number] [address] TYPE AND SCREEN EXPIRATION 01/02/2022 23:59 Normal [facility] Comment on above: Order Comment: Speci men Type: BLOOD SPECIMENOrdering Facility: Address: [address] [place] [address] Performed By: #### T SCR ####[facility] BLOOD BANKCLIA [id number] [address] VARICELLA ZOSTER IGGon 12-30 VARICELLA ZOSTER IGG, QUAL Positive Normal Positive [facility] Comment on above: Order Comment: Speci men Type: BLOOD SPECIMEN Ordering Facility: Address: [address] [place] [address] Result Comment: The result suggests recent or past exposure to Varicella-Zoster virus or chickenpox vaccination or zoster vaccination. Positive result may also be seen due to presence of passively-transferred antibodies. Please correlate with patient's history. Performed By: #### V ZVG2, 1988-3, RUBROSALINAG #### [facility] CLIA [id number] [address] [place], [place] [address]K [address] CULTURE URINEon 12-21-2021 CULTURE URINE Culture Observations : LIGHT GROWTH OF MIXED GENITAL ANTONIO. NO POTENTIAL PATHOGENS SEEN. Normal [facility] Comment on above: Performed By: #### C VDAGS #### [facility] [address] [address] [address] Alexei Gonzales UA RANDOM W/MICROSCOPICon BACTERIA TRACE Abnormal NONE SEEN [facility] Comment on above: Performed By: #### C BC #### [facility] [address] [address] [address] Alexei Gonzales Bilirubin Ql (U) Negative Normal NEGATIVE [facility] Comment on above: Performed By: #### C BC #### [facility] [address] [place] [address] Dr. Alexei Gonzales CAST NONE SEEN Normal NONE SEEN [facility] Comment on above: Performed By: #### C BC #### [facility] [address] [place] [address] Dr. Alexei Gonzales Clarity (U) CLEAR Normal CLEAR [facility] Comment on above: Performed By: #### C BC #### [facility] [address] [place] [address] Dr. Alexei Gonzales Color (U) YELLOW Normal YELLOW [facility] Comment on above: Performed By: #### C BC #### [facility] [address] [place] [address] Dr. Alexei Gonzales Crystals LM Nom (Urine sed) NONE SEEN Normal NONE SEEN [facility] Comment on above: Performed By: #### C BC #### [facility] [address] [place] [address] Dr. Alexei Gonzales Epithelial cells LM Ql (Urine sed) FEW Abnormal NONE SEEN /RARE [facility] Comment on above: Performed By: #### C BC #### [facility] [address] [place] [address] Dr. Alexei Gonzales Glucose Ql (U) Negative Normal NEGATIVE [facility] Comment on above: Performed By: #### C BC #### [facility] [address] [place] [address] Dr. Alexei Gonzales Hemoglobin Ql (U) TRACE-LYSED Abnormal NEGATIVE [facility] Comment on above: Performed By: #### C BC #### [facility] [address] [place] [address] Dr. Alexei Gonzales Ketones Ql (U) Negative Normal NEGATIVE [facility] Comment on above: Performed By: #### C BC #### [facility] [address] [place] [address] Dr. Alexei Gonzales LEUKOCYTES Negative Normal NEGATIVE [facility] Comment on above: Performed By: #### C BC #### [facility] [address] [place] [address] Dr. Alexei Gonzales MUCOUS NONE SEEN Normal NONE SEEN [facility] Comment on above: Performed By: #### C BC #### [facility] [address] [place] [address] Dr. Alexei Gonzales Nitrite Ql (U) Negative Normal NEGATIVE [facility] Comment on above: Performed By: #### C BC #### [facility] [address] [place] [address] Dr. Alexei Gonzales pH (U) 6.0 [pH] Normal 5-9 [facility] Comment on above: Performed By: #### C BC #### [facility] [address] [place] [address] Dr. Alexei Gonzales RBC 2-5 Abnormal 0-2 [facility] Comment on above: Performed By: #### C BC #### [facility] [address] [place] [address] Dr. Alexei Gonzales SPEC GRAVITY >=1.030 Abnormal 1.005-<=1.0 25 [facility] Comment on above: Performed By: #### C BC #### [facility] [address] [place] [address] Dr. Alexei Gonzales UA PROTEIN Negative Normal NEGATIVE/ TRACE [facility] Comment on above: Performed By: #### C BC #### [facility] [address] [place] [address] Dr. Alexei Gonzales Urobilinogen Qn (U) 0.2 {Albin'U}/dL Normal 0.2 - 1.0 [facility] Comment on above: Performed By: #### C BC #### [facility] [address] [place] [address] Dr. Alexei Gonzales WBC 0-2 Abnormal NONE SEEN [facility] Comment on above: Performed By: #### C BC #### [facility] [address] [place] [address] Dr. Alexei Gonzales CBC AUTO DIFFon 11-30-2021 BASO # 0.1 103/ul Normal 0.0-0.1 [facility] Comment on above: Performed By: #### C VDAGS #### [facility] [address] [place] [address] Dr. Alexei Gonzales Basophils/100 WBC (Bld) 0.4 % Normal 0.2-2.0 [facility] Comment on above: Performed By: #### C VDAGS #### [facility] [address] [place] [address] Dr. Alexei Gonzales EO # 0.2 103/ul Normal 0.0-0.7 [facility] Comment on above: Performed By: #### C VDAGS #### [facility] [address] [place] [address] Dr. Alexei Gonzales Eosinophils/100 WBC (Bld) 1.9 % Normal 0.9-7.0 [facility] Comment on above: Performed By: #### C VDAGS #### [facility] [address] [place] [address] Dr. Alexei Gonzales Erythrocyte distribution width (RBC) [Ratio] 13.3 % Normal 11.0-15.0 [facility] Comment on above: Performed By: #### C VDAGS #### [facility] [address] [place] [address] Dr. Alexei Gonzales Hematocrit (Bld) [Volume fraction] 40.8 % Normal 36.0-48.0 [facility] Comment on above: Performed By: #### C VDAGS #### [facility] [address] [place] [address] Dr. Alexei Gonzales Hemoglobin (Bld) [Mass/Vol] 13.0 g/dL Normal 12.0-16.0 [facility] Comment on above: Performed By: #### C VDAGS #### [facility] [address] [place] [address] Dr. Alexei Gonzales IG # 0.05 10e3/ul Critically high 0.00-0.03 [facility] Comment on above: Performed By: #### C VDAGS #### [facility] [address] [place] [address] Dr. Alexei Gonzales IG % 0.4 % Normal 0.0-0.[address] [facility] Comment on above: Performed By: #### C VDAGS #### [facility] [address] [place] [address] Dr. Alexei Gonzales LYMPH # 3.4 103/ul Normal 1.2-3.8 [facility] Comment on above: Performed By: #### C VDAGS #### [facility] [address] [place] [address] Dr. Alexei Gonzales Lymphocytes/100 WBC (Bld) 29.1 % Normal 20.5-60.0 [facility] Comment on above: Performed By: #### C VDAGS #### [facility] [address] [place] [address] Dr. Alexei Gonzales MANUAL DIFF REQ NO Normal [facility] Comment on above: Performed By: #### C VDAGS #### [facility] [address] [place] [address] Dr. Alexei Gonzales MCH (RBC) [Entitic mass] 27.3 pg Normal 26.7-34.0 [facility] Comment on above: Performed By: #### C VDAGS #### [facility] [address] [place] [address] Dr. Alexei Gonzales MCHC (RBC) [Mass/Vol] 31.9 g/dL Normal 29.9-35.2 [facility] Comment on above: Performed By: #### C VDAGS #### [facility] [address] [place] [address] Dr. Alexei Gonzales MCV (RBC) [Entitic vol] 85.5 fL Normal 81.0-99.0 [facility] Comment on above: Performed By: #### C VDAGS #### [facility] [address] [place] [address] Dr. Alexei Gonzales MONO # 0.7 103/ul Normal 0.3-0.8 [facility] Comment on above: Performed By: #### C VDAGS #### [facility] [address] [place] [address] Dr. Alexei Gonzales Monocytes/100 WBC (Bld) 5.9 % Normal 1.7-12.0 [facility] Comment on above: Performed By: #### C VDAGS #### [facility] [address] [address] [address] Alexei Gonzales NEUT # 7.4 103/ul Critically high 1.4-6.[address] [facility] Comment on above: Performed By: #### C VDAGS #### [facility] [address] [address] [address] Alexei Gonzales Neutrophils/100 WBC (Bld) 62.3 % Normal 43.0-75.0 [facility] Comment on above: Performed By: #### C VDAGS #### [facility] [address] [address] [address] Alexei Gonzales Platelet mean volume (Bld) [Entitic vol] 10.4 fL Normal 9.5-13.5 [facility] Comment on above: Performed By: #### C VDAGS #### [facility] [address] [address] [address] Alexei Gonzales PLT 319 103/ul Normal 150-450 [facility] Comment on above: Performed By: #### C VDAGS #### [facility] [address] [address] [address] Alexei Gonzales RBC 4.77 106/ul Normal 4.20-5.[address] [facility] Comment on above: Performed By: #### C VDAGS #### [facility] [address] [address] [address] Alexei Gonzales WBC 11.8 103/ul Critically high 4.0-11.0 [facility] Comment on above: Performed By: #### C VDAGS #### [facility] [address] [address] [address] Alexei Gonzales FREE T4on 11-30-2021 Free T4 [Mass/Vol] 1.20 ng/dL Normal 0.76-1.46 [facility] Comment on above: Performed By: #### F T4 #### [facility] [address] [address] [address] Alexei Gonzales GLYCOHEMOGLOBIN A1Con 2021 ADA RECOMMENDATION SEE BELOW Normal [facility] Comment on above: Result Comment: ADA RECOMMENDED LIMIT 4.0 - 6.0 ADA THERAPEUTIC TARGET < 7.0 ACTION SUGGESTED > 7.0 Performed By: #### A 1C #### [facility] [address] [address] [address] Alexei Gonzales Glucose [Mass/Vol] 126 mg/dL Normal [facility] Comment on above: Performed By: #### A 1C #### [facility] [address] [address] [address] Alexei Gonzales HbA1c (Bld) [Mass fraction] 6.0 % Normal 4.5-6.2 [facility] Comment on above: Performed By: #### A 1C #### [facility] [address] [place] [address] Dr. Alexei Gonzales LIPID PROFILEon 11-30-2021 CHOL-HDL RATIO NORM SEE BELOW Normal [facility] Comment on above: Result Comment: 3.3 - 4.4 LOW RISK 4.4 - 7.1 AVERAGE RISK 7.1 - 11.0 MODERATE RISK >11.0 HIGH RISK Performed By: #### L IPID, CMP, TSH #### [facility] [address] [address] [address] Alexei Gonzales Cholesterol [Mass/Vol] 180 mg/dL Normal <=200 [facility] Comment on above: Performed By: #### L IPID, CMP, TSH #### [facility] [address] [address] [address] Alexei Gonzales Cholesterol in HDL [Mass/Vol] 40 mg/dL Normal 40-60 [facility] Comment on above: Performed By: #### L IPID, CMP, TSH #### [facility] [address] [address] [address] Alexei Gonzales Cholesterol in LDL [Mass/Vol] 114.4 mg/dL Normal [facility] Comment on above: Performed By: #### L IPID, CMP, TSH #### [facility] [address] [address] [address] Alexei Gonzales Cholesterol.total/ Cholesterol in HDL [Mass ratio] 4.5 {ratio} Normal [facility] Comment on above: Performed By: #### L IPID, CMP, TSH #### [facility] [address] [address] [address] Alexei Gonzales HDL NORMAL > or = 60 mg/dl - LO W CARDIOVASCULAR RISK <40 mg/dl - HIGH CARDIOVASCULAR RISK Normal [facility] Comment on above: Performed By: #### L IPID, CMP, TSH #### [facility] [address] [address] [address] Alexei Gonzales LDL CALC NORMAL SEE BELOW Normal [facility] Comment on above: Result Comment: <100 mg/dl OPTIMAL 100 - 129 mg/dl NEAR OR ABOVE OPTIMAL 130 - 159 mg/dl BORDERLINE HIGH 160 - 189 mg/dl HIGH >190 mg/dl VERY HIGH Performed By: #### L IPID, CMP, TSH #### [facility] [address] [address] [address] Alexei Gonzales Triglyceride [Mass/Vol] 128 mg/dL Normal <=150 [facility] Comment on above: Performed By: #### L IPID, CMP, TSH #### [facility] [address] [address] [address] Alexei Gonzales VLDL CALC 25.6 mg/dL Normal [facility] Comment on above: Performed By: #### L IPID, CMP, TSH #### [facility] [address] [address] [address] Alexei Gonzales PROF 14(COMP METB)on 022 Albumin [Mass/Vol] 3.4 g/dL Normal 3.4-5.0 [facility] Comment on above: Performed By: #### L IPID, CMP, TSH #### [facility] [address] [address] [address] Alexei Gonzales Albumin/Globulin [Mass ratio] 0.9 {ratio} Normal [facility] Comment on above: Performed By: #### L IPID, CMP, TSH #### [facility] [address] [address] [address] Alexei Gonzales ALP [Catalytic activity/Vol] 81 U/L Normal 46-116 [facility] Comment on above: Performed By: #### L IPID, CMP, TSH #### [facility] [address] [address] [address] Alexei Gonzales ALT [Catalytic activity/Vol] 41 U/L Normal 14-59 [facility] Comment on above: Performed By: #### L IPID, CMP, TSH #### [facility] [address] [place] [address] Dr. Alexei Gonzales Anion gap [Moles/Vol] 10.6 mmol/L Normal [facility] Comment on above: Performed By: #### L IPID, CMP, TSH #### [facility] [address] [place] [address] Dr. Alexei Gonzales AST [Catalytic activity/Vol] 22 U/L Normal 15-37 [facility] Comment on above: Performed By: #### L IPID, CMP, TSH #### [facility] [address] [place] [address] Dr. Alexei Gonzales Bilirubin [Mass/Vol] 0.4 mg/dL Normal 0.2-1.0 [facility] Comment on above: Performed By: #### L IPID, CMP, TSH #### [facility] [address] [address] [address] Alexei Gonzales Calcium [Mass/Vol] 9.1 mg/dL Normal 8.5-10.1 [facility] Comment on above: Performed By: #### L IPID, CMP, TSH #### [facility] [address] [place] [address] Dr. Alexei Gonzales Chloride [Moles/Vol] 105 mmol/L Normal 98-107 [facility] Comment on above: Performed By: #### L IPID, CMP, TSH #### [facility] [address] [place] [address] Dr. Alexei Gonzales CO2 [Moles/Vol] 25.6 mmol/L Normal 21.0-32.0 [facility] Comment on above: Performed By: #### L IPID, CMP, TSH #### [facility] [address] [place] [address] Dr. Alexei Gonzales Creatinine [Mass/Vol] 0.84 mg/dL Normal 0.55-1.02 [facility] Comment on above: Performed By: #### L IPID, CMP, TSH #### [facility] [address] [address] [address] Alexei Gonzales EGFR-AF KYRGYZ >60 Normal >=60 [facility] Comment on above: Performed By: #### L IPID, CMP, TSH #### [facility] [address] [address] [address] Alexei Gonzales EGFR-NON AF KYRGYZ >60 Normal >=60 [facility] Comment on above: Performed By: #### L IPID, CMP, TSH #### [facility] [address] [place] [address] Dr. Alexei Gonzales Globulin (S) [Mass/Vol] 4.0 g/dL Normal [facility] Comment on above: Performed By: #### L IPID, CMP, TSH #### [facility] [address] [address] [address] Alexei Gonzales Glucose [Mass/Vol] 113 mg/dL Critically high 74-106 [facility] Comment on above: Performed By: #### L IPID, CMP, TSH #### [facility] [address] [address] [address] Alexei Gonzales Potassium [Moles/Vol] 4.2 mmol/L Normal 3.5-5.1 [facility] Comment on above: Performed By: #### L IPID, CMP, TSH #### [facility] [address] [address] [address] Alexei Gonzales Protein [Mass/Vol] 7.4 g/dL Normal 6.4-8.2 [facility] Comment on above: Performed By: #### L IPID, CMP, TSH #### [facility] [address] [address] [address] Alexei Gonzales Sodium [Moles/Vol] 137 mmol/L Normal 136-145 [facility] Comment on above: Performed By: #### L IPID, CMP, TSH #### [facility] [address] [place] [address] Dr. Alexei Gonzales Urea nitrogen [Mass/Vol] 14.0 mg/dL Normal 7.0-18.0 [facility] Comment on above: Performed By: #### L ALBERTO DESAI, TSH #### [facility] [address] [place] [address] Dr. Alexei Gonzales Urea nitrogen/Creatinin e [Mass ratio] 16.7 mg/mg Normal [facility] Comment on above: Performed By: #### L ALBERTO DESAI, TSH #### [facility] [address] [place] [address] Dr. Alexei Gonzales TSHon 11-30-2021 TSH 1.150 uIU/mL Normal 0.358-3.740 [facility] Comment on above: Performed By: #### L ALBERTO DESAI, TSH #### [facility] [address] [place] [address] Dr. Alexei Gonzales UA RANDOM W/MICROSCOPICon BACTERIA SMALL Abnormal NONE SEEN [facility] Comment on above: Performed By: #### C BC #### [facility] [address] [place] [address] Dr. Alexei Gonzales Bilirubin Ql (U) Negative Normal NEGATIVE [facility] Comment on above: Performed By: #### C BC #### [facility] [address] [place] [address] Dr. Alexei Gonzales CAST NONE SEEN Normal NONE SEEN [facility] Comment on above: Performed By: #### C BC #### [facility] [address] [place] [address] Dr. Alxeei Gonzales Clarity (U) CLEAR Normal CLEAR [facility] Comment on above: Performed By: #### C BC #### [facility] [address] [place] [address] Dr. Alexei Gonzales Color (U) YELLOW Normal YELLOW [facility] Comment on above: Performed By: #### C BC #### [facility] [address] [place] [address] Dr. Alexei Gonzales Crystals LM Nom (Urine sed) NONE SEEN Normal NONE SEEN [facility] Comment on above: Performed By: #### C BC #### [facility] [address] [place] [address] Dr. Alexei Gonzales Epithelial cells LM Ql (Urine sed) MODERATE Abnormal NONE SEEN /RARE [facility] Comment on above: Performed By: #### C BC #### [facility] [address] [place] [address] Dr. Alexei Gonzales Glucose Ql (U) Negative Normal NEGATIVE [facility] Comment on above: Performed By: #### C BC #### [facility] [address] [place] [address] Dr. Alexei Gonzales Hemoglobin Ql (U) TRACE-INTACT Abnormal NEGATIVE [facility] Comment on above: Performed By: #### C BC #### [facility] [address] [place] [address] Dr. Alexei Gonzales Ketones Ql (U) TRACE Abnormal NEGATIVE [facility] Comment on above: Performed By: #### C BC #### [facility] [address] [place] [address] Dr. Alexei Gonzales LEUKOCYTES Negative Normal NEGATIVE [facility] Comment on above: Performed By: #### C BC #### [facility] [address] [place] [address] Dr. Alexei Gonzales MUCOUS TRACE Abnormal NONE SEEN [facility] Comment on above: Performed By: #### C BC #### [facility] [address] [place] [address] Dr. Alexei Gonzales Nitrite Ql (U) Negative Normal NEGATIVE [facility] Comment on above: Performed By: #### C BC #### [facility] [address] [place] [address] Dr. Alexei Gonzales pH (U) 5.5 [pH] Normal 5-9 [facility] Comment on above: Performed By: #### C BC #### [facility] [address] [place] [address] Dr. Alexei Gonzales RBC 2-5 Abnormal 0-2 [facility] Comment on above: Performed By: #### C BC #### [facility] [address] [place] [address] Dr. Alexei Gonzales SPEC GRAVITY >=1.030 Abnormal 1.005-<=1.0 25 [facility] Comment on above: Performed By: #### C BC #### [facility] [address] [place] [address] Dr. Alexei Gonzales UA PROTEIN Negative Normal NEGATIVE/ TRACE [facility] Comment on above: Performed By: #### C BC #### [facility] [address] [place] [address] Dr. Alexei Gonzales Urobilinogen Qn (U) 0.2 {Albin'U}/dL Normal 0.2 - 1.[address] [facility] Comment on above: Performed By: #### C BC #### [facility] [address] [place] [address] Dr. Alexei Gonzales WBC 2-5 Abnormal NONE SEEN [facility] Comment on above: Performed By: #### C BC #### [facility] [address] [place] [address] Dr. Alexei Gonzales CBC AUTO DIFFon 11-22-2021 BASO # 0.1 103/ul Normal 0.0-0.1 [facility] Comment on above: Performed By: #### C BC #### [facility] [address] [place] [address] Dr. Alexei Gonzales Basophils/100 WBC (Bld) 0.4 % Normal 0.2-2.0 [facility] Comment on above: Performed By: #### C BC #### [facility] [address] [place] [address] Dr. Alexei Gonzales EO # 0.2 103/ul Normal 0.0-0.[address] [facility] Comment on above: Performed By: #### C BC #### [facility] [address] [place] [address] Dr. Alexei Gonzales Eosinophils/100 WBC (Bld) 1.4 % Normal 0.9-7.0 [facility] Comment on above: Performed By: #### C BC #### [facility] [address] [place] [address] Dr. Alexei Gonzales Erythrocyte distribution width (RBC) [Ratio] 13.2 % Normal 11.0-15.0 [facility] Comment on above: Performed By: #### C BC #### [facility] [address] [place] [address] Dr. Alexei Gonzales Hematocrit (Bld) [Volume fraction] 38.8 % Normal 36.0-48.0 [facility] Comment on above: Performed By: #### C BC #### [facility] [address] [place] [address] Dr. Alexei Gonzales Hemoglobin (Bld) [Mass/Vol] 12.6 g/dL Normal 12.0-16.0 [facility] Comment on above: Performed By: #### C BC #### [facility] [address] [place] [address] Dr. Alexei Gonzales IG # 0.04 10e3/ul Critically high 0.00-0.03 [facility] Comment on above: Performed By: #### C BC #### [facility] [address] [place] [address] Dr. Alexei Gonzales IG % 0.3 % Normal 0.0-0.5 [facility] Comment on above: Performed By: #### C BC #### [facility] [address] [place] [address] Dr. Alexei Gonzales LYMPH # 3.4 103/ul Normal 1.2-3.8 [facility] Comment on above: Performed By: #### C BC #### [facility] [address] [place] [address] Dr. Alexei Gonzales Lymphocytes/100 WBC (Bld) 26.9 % Normal 20.5-60.0 [facility] Comment on above: Performed By: #### C BC #### [facility] [address] [place] [address] Dr. Alexei Gonzales MANUAL DIFF REQ NO Normal [facility] Comment on above: Performed By: #### C BC #### [facility] [address] [place] [address] Dr. Alexei Gonzales MCH (RBC) [Entitic mass] 27.3 pg Normal 26.7-34.0 [facility] Comment on above: Performed By: #### C BC #### [facility] [address] [address] [address] Alexei Gonzales MCHC (RBC) [Mass/Vol] 32.5 g/dL Normal 29.9-35.2 [facility] Comment on above: Performed By: #### C BC #### [facility] [address] [address] [address] Alexei Gonzales MCV (RBC) [Entitic vol] 84.2 fL Normal 81.0-99.0 [facility] Comment on above: Performed By: #### C BC #### [facility] [address] [address] [address] Alexei Gonzales MONO # 0.6 103/ul Normal 0.3-0.8 [facility] Comment on above: Performed By: #### C BC #### [facility] [address] [address] [address] Alexei Gonzales Monocytes/100 WBC (Bld) 5.1 % Normal 1.7-12.0 [facility] Comment on above: Performed By: #### C BC #### [facility] [address] [address] [address] Alexei Gonzales NEUT # 8.3 103/ul Critically high 1.4-6.[address] [facility] Comment on above: Performed By: #### C BC #### [facility] [address] [address] [address] Alexei Gonzales Neutrophils/100 WBC (Bld) 65.9 % Normal 43.0-75.0 [facility] Comment on above: Performed By: #### C BC #### [facility] [address] [address] [address] Aleexi Gonzales Platelet mean volume (Bld) [Entitic vol] 10.1 fL Normal 9.5-13.5 [facility] Comment on above: Performed By: #### C BC #### [facility] [address] [address] [address] Alexei Gonzales PLT 373 103/ul Normal 150-[address] [facility] Comment on above: Performed By: #### C BC #### [facility] [address] [address] [address] Alexei Gonzales RBC 4.61 106/ul Normal 4.20-5.40 [facility] Comment on above: Performed By: #### C BC #### [facility] [address] [place] [address] Dr. Alexei Gonzales WBC 12.5 103/ul Critically high 4.0-11.0 [facility] Comment on above: Performed By: #### C BC #### [facility] [address] [address] [address] Alexei Gonzales PREG HCG QUALon 11-22-2021 , QUAL Negative Normal NEGATIVE [facility] Comment on above: Performed By: #### C BC #### [facility] [address] [place] [address] Dr. Alexei Gonzales PROF 14(COMP METB)on 022 Albumin [Mass/Vol] 3.3 g/dL Critically low 3.4-5.0 [facility] Comment on above: Performed By: #### C BC #### [facility] [address] [place] [address] Dr. Alexei Gonzales Albumin/Globulin [Mass ratio] 0.8 {ratio} Normal [facility] Comment on above: Performed By: #### C BC #### [facility] [address] [place] [address] Dr. Alexei Gonzales ALP [Catalytic activity/Vol] 89 U/L Normal 46-116 [facility] Comment on above: Performed By: #### C BC #### [facility] [address] [place] [address] Dr. Alexei Gonzales ALT [Catalytic activity/Vol] 43 U/L Normal 14-59 [facility] Comment on above: Performed By: #### C BC #### [facility] [address] [place] [address] Dr. Alexei Gonzales Anion gap [Moles/Vol] 13.4 mmol/L Normal [facility] Comment on above: Performed By: #### C BC #### [facility] [address] [place] [address] Dr. Alexei Gonzales AST [Catalytic activity/Vol] 17 U/L Normal 15-37 [facility] Comment on above: Performed By: #### C BC #### [facility] [address] [address] [address] Alexei Gonzales Bilirubin [Mass/Vol] 0.3 mg/dL Normal 0.2-1.0 [facility] Comment on above: Performed By: #### C BC #### [facility] [address] [place] [address] Dr. Alexei Gonzales Calcium [Mass/Vol] 8.9 mg/dL Normal 8.5-10.1 [facility] Comment on above: Performed By: #### C BC #### [facility] [address] [place] [address] Dr. Alexei Gonzales Chloride [Moles/Vol] 103 mmol/L Normal 98-107 [facility] Comment on above: Performed By: #### C BC #### [facility] [address] [place] [address] Dr. Alexei Gonzales CO2 [Moles/Vol] 26.4 mmol/L Normal 21.0-32.0 [facility] Comment on above: Performed By: #### C BC #### [facility] [address] [place] [address] Dr. Alexei Gonzales Creatinine [Mass/Vol] 0.91 mg/dL Normal 0.55-1.02 [facility] Comment on above: Performed By: #### C BC #### [facility] [address] [place] [address] Dr. Alexei Gonzales EGFR-AF KYRGYZ >60 Normal >=60 [facility] Comment on above: Performed By: #### C BC #### [facility] [address] [place] [address] Dr. Alexei Gonzales EGFR-NON AF KYRGYZ >60 Normal >=60 [facility] Comment on above: Performed By: #### C BC #### [facility] [address] [place] [address] Dr. Alexei Gonzales Globulin (S) [Mass/Vol] 4.1 g/dL Normal [facility] Comment on above: Performed By: #### C BC #### [facility] [address] [place] [address] Dr. Alexei Gonzales Glucose [Mass/Vol] 151 mg/dL Critically high 74-106 [facility] Comment on above: Performed By: #### C BC #### [facility] [address] [address] [address] Alexei Gonzales Potassium [Moles/Vol] 3.8 mmol/L Normal 3.5-5.1 [facility] Comment on above: Performed By: #### C BC #### [facility] [address] [place] [address] Dr. Alexei Gonzales Protein [Mass/Vol] 7.4 g/dL Normal 6.4-8.2 [facility] Comment on above: Performed By: #### C BC #### [facility] [address] [place] [address] Dr. Alexei Gonzales Sodium [Moles/Vol] 139 mmol/L Normal 136-145 [facility] Comment on above: Performed By: #### C BC #### [facility] [address] [place] [address] Dr. Alexei Gonzales Urea nitrogen [Mass/Vol] 12.0 mg/dL Normal 7.0-18.0 [facility] Comment on above: Performed By: #### C BC #### [facility] [address] [place] [address] Dr. Alexei Gonzales Urea nitrogen/Creatinin e [Mass ratio] 13.2 mg/mg Normal [facility] Comment on above: Performed By: #### C BC #### [facility] [address] [place] [address] Dr. Alexei Gonzales TROPONIN, HIGH SENSITIVITYon 11-22-2021 HSTROP 5.0 pg/mL Normal 4.0-51.[address] [facility] Comment on above: Result Comment: CUT- OFF POINTS HAVE BEEN ESTABLISHED BASED ON THE FOURTH UNIVERSAL DEFINITIONS OF MYOCARDIAL INFARCTION. THE UPPER REFERENCE LIMIT (URL) OF TROPONIN, DEFINED THE 99TH PERCENTILE OF cTnI DISTRIBUTION IN A REFERENCE POPULATION, HAS BEEN CONFIRMED THE DECISION THRESHOLD FOR [place] DIAGNOSIS. Performed By: #### C BC #### [facility] [address] [address] [address] Alexei Gonzales XR CHEST 1 Von [...] by: LUDMILA WINKLER Date: 2021-11-21 23:31 Normal [facility] PAP ACOG PANEL 2: 30 to 65on 10-22-2021 . . Normal [facility] Comment on above: Result Comment: Perf ormed at: WB Performed By: #### [id number] #### [facility] [address] [address] [address] Alexei Gonzales Age Gdln ACOG Testing 30-65 Normal [facility] Comment on above: Performed By: #### [id number] #### [facility] [address] [address] [address] Alexei Gonzales DIAGNOSIS: Comment Normal [facility] Comment on above: Result Comment: NEGA TIVE FOR INTRAEPITHELIAL LESION OR MALIGNANCY. Performed at: WB Performed By: #### [id number] #### [facility] [address] [address] [address] lAexei Gonzales HPV Aptima Negative Normal Negative [facility] Comment on above: Result Comment: This nucleic acid amplification test detects fourteen high-risk HPV types (16,18,31,33,35,39,45,51,52,56,58,59,66,68) without differentiation. Performed at: =G Performed By: #### [id number] #### [facility] [address] [address] [address] Alexei Gonzales Methodology: Comment Normal [facility] Comment on above: Result Comment: This liquid based ThinPrep(R) pap test was screened with the use of an image guided system. Performed at: WB Performed By: #### [id number] #### [facility] [address] [place] [address] Dr. Alexei Gonzales Note: Comment [facility] Comment on above: Result Comment: The Pap smear is a screening test designed to aid in the detection of premalignant and malignant conditions of the uterine cervix. It is not a diagnostic procedure and should not be used as the sole means of detecting cervical cancer. Both false-positive and false-negative reports do occur. . Performed at: WB Performed By: #### [id number] #### [facility] [address] [place] [address] Dr. Alexei Gonzales Performed by: Comment Normal [facility] Comment on above: Result Comment: Elis Oshea, Keno Writer/Runner (ASCP) Performed at: WB Performed By: #### [id number] #### [facility] [address] [place] [address] Dr. Alexei Gonzales Specimen adequacy: Comment Normal [facility] Comment on above: Result Comment: Sati sfactory for evaluation. Endocervical and/or squamous metaplastic cells (endocervical component) are present. Performed at: WB Performed By: #### [id number] #### [facility] [address] [place] [address] Dr. Alexei Gonzales Vital Signs Date Time Vital Sign Value Performing Clinician Facility 04-08-2022 14:15-050 Body height 162.56 cm Luciana Flores Other [employer] [facility] [employer] Other 04-08-2022 14:15-0500 Body mass index (BMI) [Ratio] 50.46 kg/m2 Luciana Flores Other [employer] Other 04-08-2022 14:15-0500 Body temperature 98.4 [degF] Luciana Flores Other [employer] Other 04-08-2022 14:15-0500 Body weight 133.36 kg Luciana Flores Other [employer] Other 04-08-2022 14:15-0500 Respiratory rate 18 /min Luciana Flores Other [employer] Other 04-08-2022 14:15-0500 SaO2% (BldA) [Mass fraction] 99 % Luciana Flores Other [employer] Other 04-04-2022 09:23-0500 Blood Pressure Location Audi ANGEL[facility] 04-04-2022 09:23-0500 Diastolic blood pressure 89 mm[Hg] Audi ANG[facility] 04-04-2022 09:23-0500 Heart rate 75 /min Audi ANG[facility] 04-04-2022 09:23-0500 Respiratory rate 16 /min Audi ANG[facility] 04-04-2022 09:23-0500 Systolic blood pressure 136 mm[Hg] Audi ANGELA [facility] 12-30-2021 12:56-0400 Body height 162.6 cm Monica Torres MD Work Phone: [facility] 12-30-2021 12:56-0400 Body weight 136.08 kg Monica Torres MD Work Phone: [facility] 12-30-2021 12:56-0400 Diastolic blood pressure 72 mm[Hg] Monica Torres MD Work Phone: [facility] 12-30-2021 12:56-0400 Systolic blood pressure 116 mm[Hg] Monica Torres MD Work Phone: [facility] 08-27-2021 17:50-0400 Body height 162.56 cm Luciana Flores Other [employer] Other 08-27-2021 17:50-0400 Body mass index (BMI) [Ratio] 49.77 kg/m2 Luciana Flores Other [employer] Other 08-27-2021 17:50-0400 Body temperature 97.7 [degF] Luciana Flores Other [employer] Other 08-27-2021 17:50-0400 Body weight 131.54 kg Luciana Flores Other [employer] Other 08-27-2021 17:50-0400 Respiratory rate 18 /min Luciana Flores Other [employer] Other 08-27-2021 17:50-0400 SaO2% (BldA) [Mass fraction] 98 % Luciana Flores Other [employer] Other Encounters Encounter Date Encounter Type Care Provider Facility Start: 04-26-2024 ambulatory Audi Brannoni ty:NIRAJ Duran Start: 08-21-2023 End: 08-22-2023 ambulatory ANAM KIRKLAND Not Available Start: 08-01-2023 End: 08-01-2023 ambulatory URSULA AICHHOLZ Not Available Start: 07-12-2023 End: 07-12-2023 ambulatory ADA SELF Not Available Start: 04-21-2023 End: 04-22-2023 ambulatory Audi ANGELA Facility:[facility] Duran Start: 09-20-2022 End: 09-20-2022 ambulatory [employer] SERVICE TECHNICIAN URSULA AICHHOLZ Facility:[facility] Start: 08-31-2022 End: 08-31-2022 ambulatory HEAVY EQUIPMENT SERVICE TECHNICIAN URSULA AICHHOLZ Facility:[facility] Start: 05-13-2022 End: 05-13-2022 ambulatory HEAVY EQUIPMENT SERVICE TECHNICIAN URSULA MONSON Facility:[facility] Start: 04-18-2022 End: 04-18-2022 ambulatory HEAVY EQUIPMENT SERVICE TECHNICIAN URSULA ERMIAS Facility:[facility] Start: 04-15-2022 End: 04-16-2022 ambulatory HEAV[employer] EQUIPMENT SERVICE TECHNICIAN URSULA MONSON Facility:[facility] Start: 04-08-2022 End: 04-08-2022 ambulatory Luciana Flores Other [employer] Other Start: 04-08-2022 Office outpatient vi sit 25 minutes Luciana Flores [facility] Start: 04-04-2022 End: 04-04-2022 Patient encounter procedure Audi ANGELA [facility] Start: 01-18-2022 Telephone encounter Lacey hunter MD Work Phone: [facility] Comment on above: Appointment Start: 01-17-2022 End: 01-18-2022 ambulatory HEAVY EQUIPMENT SERVICE TECHNICIAN URSULA MONSON Facility:[facility] Start: 01-14-2022 End: 01-14-2022 ambulatory Monica Torres MD Work Phone: [facility] Comment on above: info Primary amenorrhea ( Primary Dx) Start: 01-14-2022 E-mail encounter fro m caregiver Monica Torres MD Work Phone: [facility] Start: 01-14-2022 End: 01-14-2022 Telemedicine consultation with patient Monica Torres MD Work Phone: [facility] Start: 12-30-2021 End: 12-31-2021 ambulatory MONICA TORRES Facility:[facility] Start: 12-30-2021 End: 12-30-2021 Patient encounter procedure Monica Torres MD Work Phone: [facility] Comment on above: Primary amenorrhea ( Primary Dx) Start: 12-21-2021 End: 12-22-2021 ambulatory PACO MONSON Facility:[facility] Start: 11-30-2021 End: 12-01-2021 ambulatory PACO URSULA POPELAMAR Facility:[facility] Start: 11-22-2021 End: 11-22-[address] KIRTI CROCKETT Facility:[facility] Start: 10-19-2021 End: 10-19-[address] IMTIAZ LONGO . Facility:[facility] Start: 08-27-2021 End: 08-27-2021 ambulatory Luciana Flores Other [employer] Other Start: 08-27-2021 Office outpatient vi sit 15 minutes Luciana Flores [facility] Start: 09-11-2020 End: 09-11-2020 ambulatory Raj West Facility:[facility] Procedures Date Procedure Procedure Detail Performing Clinician Start: 12-30-2021 Antibody screen MONICA TORRES Comment on above: Order Comment: Speci men Type: BLOOD SPECIMENOrdering Facility: Address: [address] [place] [address] Performed By: #### T SCR ####CC MAIN BLOOD BANKCLIA [id number] [address] Plan of Treatment Date Care Activity Detail Author Start: 01-06-2022 Influenza vaccination INFLUENZA (#1) [facility] Start: 12-30-2021 End: 03-01-2022 25-hydroxyvitamin D3 [Mass/volume] in Serum or Plasma [facility] Work Phone: Comment on above: Expected: 12/30/2021 , Expires: 03/01/2022 Start: 12-30-2021 End: 03-01-2022 Estradiol (E2) [Mass/volume] in Serum or Plasma [facility] Work Phone: Comment on above: Expected: 12/30/2021 , Expires: 03/01/2022 Start: 12-30-2021 End: 03-01-2022 Follitropin [Units/volume] in Serum or Plasma [facility] Work Phone: Comment on above: Expected: 12/30/2021 , Expires: 03/01/2022 Start: 12-30-2021 End: 03-01-2022 Hemoglobin A1c in Blood [facility] Work Phone: Comment on above: Expected: 12/30/2021 , Expires: 03/01/2022 Start: 12-30-2021 End: 03-01-2022 Prolactin [Mass/volume] in Serum or Plasma [facility] Work Phone: Comment on above: Expected: 12/30/2021 , Expires: 03/01/2022 Start: 12-30-2021 End: 03-01-2022 RUBELLA IGG AB [facility] Work Phone: Comment on above: Expected: 12/30/2021 , Expires: 03/01/2022 Start: 12-30-2021 End: 03-01-2022 Thyrotropin [Units/volume] in Serum or Plasma [facility] Work Phone: Comment on above: Expected: 12/30/2021 , Expires: 03/01/2022 Start: 12-30-2021 End: 03-01-2022 TYPE + SCREEN [facility] Work Phone: Comment on above: Expected: 12/30/2021 , Expires: 03/01/2022 Start: 12-30-2021 End: 03-01-2022 VARICELLA ZOSTER IGG [facility] Work Phone: Comment on above: Expected: 12/30/2021 , Expires: 03/01/2022 Start: 01-30-2021 COVID-19 VACCINE (3 - Booster for Pfizer series) COVID-19 VACCINE (3 - Booster for Pfizer series) [facility] Start: 2019 HPV TESTING HPV TESTING [facility] Start: 2010 PAP TESTING PAP TESTING [facility] Start: 02-23-2008 Urine microalbumin profile DTAP,TDAP,TD (1 - Tdap) [facility] Start: 2007 HEPATITIS C SCREENING HEPATITIS C [facility] Start: 2007 HIV SCREENING HIV SCREENING [facility] Start: 2001 Adult depression screening assessment DEPRESSION SCREENING [facility] Start: 1989 HEPATITIS B (1 of 3 - 3-dose series) HEPATITIS B (1 of 3 - 3-dose series) [facility] Immunizations Immunization Date Immunization Notes Care Provider Fa toryty 08-30-2020 SARS-CoV-2 (COVID-19 ) mRNA BNT-162b2 vax Audi ANGELA [facility] Comment on above: Result Comment: 2021: TPVAL 08-07-2020 SARS-CoV-2 (COVID-19 ) mRNA BNT-162b2 vax Audi ANGELA [facility] Comment on above: Result Comment: 2021: TPVAL 09-21-2001 measles, mumps and rubella virus vaccine Audi ALESSANDRO [facility] Payers Date Payer Category Payer Unknown [id number] 2022 Unknown [id number] 2020 Self-pay 2019 Unknown KEVIN AN PPO [id number] 2019-Present [phone] [facility] [id number] [place] [address] PPO [id number] 1989 Unknown [id number] 2.16.840.1.265071.3.579.2. 593 1989 Unknown [id number] 2.16.840.1.271777.3.579.2. 593 1989 Unknown [id number] 2.16.840.1.613726.3.579.2. 593 1989 Unknown [id number] 2.16.840.1.458437.3.579.2. 593 1989 Unknown [id number] 2.16.840.1.695706.3.579.2. 593 1989 Unknown [id number] 2.16.840.1.538468.3.579.2. 593 1989 Unknown [id number] 2.16.840.1.541400.3.579.2. 593 1989 Unknown [id number] 2.16.840.1.561498.3.579.2. 593 1989 Unknown [id number] 2.16.840.1.178191.3.579.2. 593 1989 Unknown [id number] 2.16.840.1.654343.3.579.2. 593 1989 Unknown [id number] 2.16.840.1.403661.3.579.2. 727 1989 Unknown [id number] 2.16.840.1.636041.3.579.2. 727 1989 Unknown [id number] 2.16.840.1.057227.3.579.2. 1259 1989 Unknown [id number] 2.16.840.1.770182.3.579.2. 1259 1989 Unknown [id number] 2.16.840.1.124901.3.579.2. 1259 1960 [facility] [id number] 2.16.840.1.007950.19 Unknown [id number] 2.16.840.1.368079.3.579.2. 531 Social History Date Type Detail Facility Unknown if ever smoked [employer] Other Sex Assigned At [facility] Start: 12-30-2021 End: 04-04-2022 Tobacco smoking status NHIS Ex-smoker [facility] History of tobacco use Current smoker [facility] History of tobacco use Cigarette Smoker [facility] Start: 12-30-2021 Tobacco use and exposure User of smokeless tobacco [facility] Start: 12-30-2021 Tobacco Comment [facility]APPaula Mckee [facility] Start: 1989 Sex Assigned At Not on file [facility] Start: 12-20-2021 End: 12-30-2021 Exposure to SARS-CoV-2 (event) Not sure [facility] Functional Status Date Assessment Result Facility 04-04-2022 Functional Status N/A [facility] Clinical Notes 08-27-2021 to 04-08-2022 Note Date [...] treatment plan. Patient left in stable condition [employer] Other 11-28-2022 Hospital Discharge instructions Patient Education [...] Follow these instructions at home: Medicines Take iziu-npe-dwmxcaj and prescription medicines only as told by [...] or the blood stops without treatment. Take btrw-fsj-ukxqbhp and prescription medicines only as told by your health care provider. Drink enough fluid to keep your urine clear or pale yellow. This information is not intended to replace advice given to you by your health care provider. Make sure you discuss any questions you have with your health care provider. Document Released: 04/24/2006 Document Revised: 09/18/2019 Document Reviewed: 05/27/2017 [employer] Patient Education 2019 [employer]. Follow Up Care 03/01/2022 10:00:52 With:ALESSANDRO EGAN, Audi Felton, URL Address: [facility] [address], [place] [address]- When: Unknown Comments:Schedule cysto, CTU [facility] 09-13-2022 Miscellaneous Notes* Telephone Encounter - Luciana Dennis - 01/18/2022 10:29 AM EDT Lacey Brown MD P [facility] A10 Scheduling Pool New PCOS patient for clinic Call to patient, no answer. Left voicemail for patient to call the office so that we may assist with scheduling and appointmentwith Dr. Kwan for PCOS clinic. Luciana Dennis [facility] NoteHNO ID: [id number] Author: Monica Torres MD Service: ? Author [...] begin metformin AND vit D referred to [facility] endo wt loss clinic I spent a total of 20 minutes via virtual visit which included preparing to see the patient, adjy-co-kuwo patient care, completing clinical documentation, obtaining and/or reviewing separately obtained history, counseling and educating the patient/family/caregiver, and ordering medications, tests, or procedures. Medical Decision Making: Problems: Low: Stable chronic illness Data: Unique test result(s) reviewed: 3+ Medical Decision Making Level: 3 - Low Monica Trores MD .[facility]09-09-2022 History of Present illness Narrative* Monica [...] begin metformin & vit D [facility] I spent a total of 20 minutes via virtual visit which included preparing to see the patient, dqbf-ua-hyfu patient care, completing clinical documentation, obtaining and/or reviewing separately obtained history, counseling and educating the patient/family/caregiver, and ordering medications, tests, or procedures. Medical Decision Making: Problems: Low: Stable chronic illness Data: Unique test result(s) reviewed: 3+ Medical Decision Making Level: 3 - Low Monica Torres MD . [facility] NoteHNO ID: [id number] Author: Monica Torres MD Service: ? Author [...] which included preparing to see the patient, fnig-tm-qlpn patient care, completing clinical documentation, obtaining and/or reviewing separately obtained history, counseling and educating the patient/family/caregiver, and ordering medications, tests, or procedures. Monica [facility] History of Present illness Narrative* Monica Torres [...] which included preparing to see the patient, pakt-ty-uawt patient care, completing clinical documentation, obtaining and/or reviewing separately obtained history, counseling and educating the patient/family/caregiver, and ordering medications, tests, or procedures. Monica Torres MD letter to Dr. Longo [facility] Evaluation note* Encounter Date Diagnosis Assessment Notes Treatment Notes Treatment Clinical Notes Aug, Contact with and (suspected) exposure to other viral communicable diseases (ICD-10 - Z20.828) Aug, Viral URI with cough (ICD-10 - J06.9) Advised patient that Influenza A/B, rapid COVID antigen, and Strep test were negative. Discussed diagnosis with patient. Will send in rx of [place] and Flonase to use as directed. Encouraged [...] Patient care instructions given in writting by [facility] Care At Home document [employer] Other Evaluation + Plan note No data available for this section [facility] [employer] evaluation note* Diagnosis Primary amenorrhea- Primary Absence of menstruation [facility] Diagnosis Primary amenorrhea- Primary Absence of menstruation documented in this encounter [facility] general Narrative - Reported* Type Description Date Surgical History wisdom teeth [employer] Other Progress note No data available for this section [facility] [employer] Summary Purpose Family History No Family History [...] or prosecute any alcohol or drug abuse patient.[facility] the event this information is protected by the Federal Confidentiality of Alcohol and Drug Abuse Patient Records regulations: The Federal rules restrict any use of the information to criminally investigate or prosecute any alcohol or drug abuse patient.[facility] the event this information is protected by the Federal Confidentiality of Alcohol and Drug Abuse Patient Records regulations: The Federal rules restrict any use of the information to criminally investigate or prosecute any alcohol or drug abuse patient.[facility] the event this information is protected by the Federal Confidentiality of Alcohol and Drug Abuse Patient Records regulations: The Federal rules restrict any use of the information to criminally investigate or prosecute any alcohol or drug abuse patient.[facility] Care Teams (unrecognized sec tion and content) Outpatient Surgery Rn Relationship Specialty [place] [address] Referring Obstetrics 11/16/21 Outpatient Surgery Rn Relationship Specialty [place] [address] Referring Obstetrics 11/16/21 Outpatient Surgery Rn Relationship Specialty [place] [address] Referring Obstetrics 11/16/21 Outpatient Surgery Rn Relationship Specialty Start [place] [address] Referring Obstetrics 11/16/21 INFORMATION SOURCE (unrecogn ized section and content) DATE CREATED AUTHOR 02/06/2022 [facility] DATE CREATED AUTHOR AUTHOR'S ORGANIZ ATION 09/21/2022 [facility] DATE CREATED AUTHOR AUTHOR'S ORGANIZ ATION 10/15/2022 [facility] DATE CREATED AUTHOR AUTHOR'S ORGANIZ ATION 04/23/2023 [facility] DATE CREATED AUTHOR AUTHOR'S ORGANIZ ATION 08/26/2023 [facility] EPIC FOR RECORDS PERTAINING TO PATIENTS WHO ARE [...] BE BASED ON THE PRIMARY CLINICAL RECORDS. [employer] [facility]. provides no warranty or guarantee of the accuracy or completeness of information in this document.
[2023-08-29 07:15] LABS: HCG Qualitative NEGATIVE (NEGATIVE)
[2023-08-29] MEDS: SCOPOLAMINE 1 MG/3 DAYS TRANSDERM PATCH 1 PATCH TD (07:15)
[2023-08-29] MEDS: FAMOTIDINE/PF 20 MG/2 ML VIAL IV (07:20)
[2023-08-29] MEDS: INDOCYANINE GREEN 25 MG VIAL 5 MG INJ (07:20)
[2023-08-29] MEDS: LACTATED RINGER'S SOLUTION 1,000 ML 50 ML IV ×3 (07:20→15:38)
[2023-08-29] MEDS: CLINDAMYCIN PHOSPHATE/D5W 600 MG/50 ML PIGGYBACK 100 MG IV (07:32)
--- NOTE | 2023-08-29 07:41 | PM.GSPRC ---
Date of procedure: 08/29/23 Indications for Procedure: symptomatic cholelithiasis Pre-op diagnosis: symptomatic cholelithiasis Post-op diagnosis: same as pre-op (chronic cholecystitis changes with severely intra-hepatic gallbladder and large gallstones (multiple greater then 3-5cm), hepatomegaly ) Procedure: Procedure: Robotic assisted laparoscopic cholecystectomy with DAMIAN block The patient was brought to the operating room and placed supine on the operating room table. Cardiopulmonary monitoring was initiated. General anesthesia was induced without any complication. A time-out was performed. Pre-operative antibiotics were given. EPC cuffs were on the lower extremities. The abdomen was prepped and draped in the usual sterile fashion. The abdomen was entered approximately 12-14 cm distal to the xiphoid process and to the left of the midline. To do this a skin incision was made. A 5mm 0 degree laparoscope was then introduced using an optical access trocar. Pneumoperitoneum was then established through this trocar. Once pneumoperitoneum was created 2 additional 8 mm Da Michael ports were placed under direct visualization in the mid left and left lateral abdomen along the same line just superior to the umbilicus. A 4th 8mm RUQ port was placed then as well under direct visualization. The 5mm optiview port was then upsized to a 12mm robotic port under direct visualization. Prior to proceeding with the operation, an intraoperative TAP block was performed. ?Under visualization with the laparoscope, a needle was inserted percutaneously and, confirming that I was in the right plane, 30 mL of a mixture of Ropivacaine and Decadron were injected on both sides for a total of 60 ml. ?Good separation of the muscle planes was seen bilaterally indicating good placement of the anesthetic solution. The da Michael machine was then docked and a camera placed without complication. A monopolar hook was then placed in the right arm and a fenestrated bipolar grasper was placed in the left arm.? Filmy adhesions between the gallbladder and the omentum were lysed carefully with electrocautery.? The fundus of the gallbladder was grasped and directed towards the patient's right shoulder.? The infundibulum of the gallbladder was difficult to identify at first due to hepatomegaly and chronic cholecystitis changes along with very large gallstones noted making it difficult to grasp the gallbladder. After careful dissection the GB was retraced laterally.? The gallbladder was positioned so that the cystic duct was at a right angle to the common bile duct in order to expose Calot's triangle. The peritoneum between the gallbladder and the liver was taken down by electrocautery to further mobilize the triangle.? The fibrous tissue was hooked with meticulous electrocautery.? Hook electrocautery was used to identify the cystic duct. Again this was done meticulously and took a significant amount of time due to inflammation and the GB very intrahepatic and the size of the liver limiting retraction of the fundus. The cystic duct was skeletonized with electrocautery.? Dissection was continued to locate the cystic artery.? The cystic artery was skeletonized with electrocautery. Critical view was obtained in the anterior and posterior window.? All fat and fibrous tissue was dissected from the cystohepatic triangle with careful hook electrocautery. The cystic plate of the liver was skeletonized with hook electrocautery.? Both the cystic duct and cystic artery were the only structures visualized entering into the gallbladder. Firefly was used to confirm identification of the cystic duct.? The critical view of safety was confirmed. The cystic duct was ligated with double Hemoclips, and then divided with Endoshears. The cystic artery was ligated with a Hemoclip and divided with Endoshears. The gallbladder was dissected from the liver bed with electrocautery.? The gallbladder was then placed into the Endopouch and delivered from the body at the umbilicus incision after some effort given the size of the specimen and the gallstone sizes. The 12mm port was widened to accommodate the GB. The EndoCatch bag broke and all stones were retrieved in a separate EndoCatch bag. The extraction site was copiously irrigated and washed with betadine and Hibiclens solution. The liver bed was then inspected.? Hemostasis was achieved with electrocautery. The cystic duct and artery stumps were identified. All clips remained on both the cystic artery and the cystic duct stump.? No sign of bile leak or bleeding from the duct or artery stump. The da Michael was undocked from the patient.?The camera and the left umbilical port were removed from the abdomen. The extraction port fascia was closed with an 0 Vicryl suture with a needle nose suture passer and a Gregg-Simona needle under direct visualization.? Working ports were removed.? All incisions were closed with simple subcuticular 4-0 Monocryl sutures except for the l lateral umbilical port which was packed with iodoform packing.? Incisions were cleaned and dressed with Dermabond. All sponge, needle and instrument counts were correct prior to closure and the patient tolerated the procedure well without any apparent complication. The patient was extubated and then taken to recovery in stable Findings: chronic cholecystitis changes with severely intra-hepatic gallbladder and large gallstones (multiple greater then 3-5cm) Anesthesia: SHAQUILLE Surgeon: Bright June Procedure Summary: Robotic assisted laparoscopic cholecystectomy with DAMIAN block, packing of L mid quadrant incision, wound class 3 Estimated blood loss (mL): 11 Specimens: gallbladder and contents Complications: No Pathology: other (gb and contents) Condition: stable Disposition: PACU
[2023-08-29] MEDS: 0.9 % SODIUM CHLORIDE 10 ML VIAL 20 ML INJ (08:09)
[2023-08-29] MEDS: 0.9 % SODIUM CHLORIDE 10 ML VIAL IV (08:09)
[2023-08-29] MEDS: BUPIVACAINE LIPOSOME/PF 266 MG/13.3 ML VIAL INJ (08:10)
[2023-08-29] MEDS: BUPIVACAINE HCL 0.25% PF 25 MG/10 ML VIAL 20 ML INJ (08:10)
--- NOTE | 2023-08-29 12:34 | PC.NURSE ---
1215;pt voids without difficulty
[2023-08-29] MEDS: PROMETHAZINE HCL 12.5 MG in 0.9 % SODIUM CHLORIDE 50 ML 202 MG IV (12:37)
--- NOTE | 2023-08-29 12:47 | PC.NURSE ---
Addendum entered by Reta Gupta 08/29/23 12:59: medictation given at 1237. Original Note: 1252;pt complains of nauea,actively gagging. PRN phenergan given at this time.
--- NOTE | 2023-08-29 12:56 | PC.NURSE ---
1255: Pts O2 sat dropped to 89% pt placed on 1L oxgen via nasal cannula pt sat rises to 92%.
[2023-08-29] MEDS: ONDANSETRON PF 4 MG/2 ML VIAL IV (14:30)
--- NOTE | 2023-08-29 14:40 | PC.NURSE ---
1430: pt actively vomiting,given PRN Zofran at this time.
[2023-08-29] MEDS: HYOSCYAMINE SULFATE 0.125 MG TAB.SUBL SL (15:31)
[2023-08-29] MEDS: CLINDAMYCIN PHOSPHATE/D5W 900 MG/50 ML PIGGYBACK 100 MG IV (15:31)
[2023-08-29] MEDS: PROCHLORPERAZINE 10 MG/2 ML VIAL IV (15:31)
--- NOTE | 2023-08-29 15:39 | PC.NURSE ---
1531: pt medicated per 's orders,pt up in chair.
--- NOTE | 2023-08-29 16:20 | PC.NURSE ---
pt ambulates with minimal assistance,no complaints of nausea at this time. pt tolerating water.
--- NOTE | 2023-08-29 17:19 | PC.NURSE ---
[address] June as patient began to vomit again. Patient states she wants to go home regardless. Dr June states for her to drink ice water and ice chips and slowly advance clear liquids tomorrow. He states his office will call and check on her tomorrow. Patient had a bloody dressing this content writer changed the dressing prior to discharge.
== END 2023-08-29 17:27 | disposition home or self-care (01) ==
PROVIDERS: Anesthesiology; PCP Nurse Practitioner; Visit Provider Surgery
PROC: (CPT 790; principal; 2023-08-29 07:30)
DX: K80.10 Calculus of gallbladder with chronic cholecystitis without obstruction (principal); Z87.891 Personal history of nicotine dependence; E66.01 Morbid (severe) obesity due to excess calories; Z68.43 Body mass index [BMI] 50.0-59.9, adult
CPT/HCPCS: 47562; 36415; 84703; 88304; 99999; J1094; J1170; J2704

== ENCOUNTER 2023-09-16 20:00 | Outpatient (OUT) | payer BC, SELFPAY ==
--- OUTSIDE RECORDS SUMMARY | 2023-09-18 07:58 | XMS_ITS | CCD ---
Author Organization [facility] Care Team Providers Care [employer] Senior Sergeant Name Role Phone Luciana Flores Unavailable Imtiaz Longo Unavailable MONICA TORRES Attending Unavailable BRIANNA TREJO Referring Unavailable MONICA TORRES Attending Unavailable MONICA TORRES Referring Unavailable AICHHOLZ, URSULA J Primary Care Physician DR KIRTI CROCKETT Consulting Unavailable BON, DR KIRTI Felton Attending Unavailable AICHHOLZ, TELEMARKETING SUPERVISOR URSULA Primary Care Unavailable DR KIRTI CROCKETT Admitting Unavailable LUDMILA WINKLER Consulting Unavailable AICHHOLZ, TELEMARKETING SUPERVISOR URSULA Primary Care Unavailable PAY ., DR ANDERSON Consulting Unavailable PAY ., DR ANDERSON Attending Unavailable PAY ., DR ANDERSON Admitting Unavailable AICHHOLZ, TELEMARKETING SUPERVISOR URSULA Primary Care Unavailable ANGELA ., DR MONDRAGON Consulting Unavailable ANGELA ., DR MONDRAGON Attending Unavailable ANGELA ., DR MONDRAGON Admitting Unavailable AICHHOLZ, TELEMARKETING SUPERVISOR URSULA Attending Unavailable AICHHOLZ, TELEMARKETING SUPERVISOR URSULA Admitting Unavailable AICHHOLZ, TELEMARKETING SUPERVISOR URSULA Primary Care Unavailable AICHHOLZ, TELEMARKETING SUPERVISOR URSULA Consulting Unavailable AICHHOLZ, TELEMARKETING SUPERVISOR URSULA Primary Care Unavailable ANGELA ., DR MONDRAGON Consulting Unavailable ANGELA ., DR MONDRAGON Attending Unavailable ANGELA ., DR MONDRAGON Admitting Unavailable DORIE, DR BORIS Dave Consulting Unavailable AICHHOLZ, TELEMARKETING SUPERVISOR URSULA Attending Unavailable AICHHOLZ, TELEMARKETING SUPERVISOR URSULA Admitting Unavailable AICHHOLZ, TELEMARKETING SUPERVISOR URSULA Primary Care Unavailable AICHHOLZ, TELEMARKETING SUPERVISOR URSULA Consulting Unavailable Ismael Iqbal Consulting Unavailable AICHHOLZ, TELEMARKETING SUPERVISOR URSULA Attending Unavailable AICHHOLZ, TELEMARKETING SUPERVISOR RUSULA Admitting Unavailable AICHHOLZ, TELEMARKETING SUPERVISOR URSULA Primary Care Unavailable AICHHOLZ, TELEMARKETING SUPERVISOR URSULA Consulting Unavailable AICHHOLZ, TELEMARKETING SUPERVISOR URSULA Attending Unavailable AICHHOLZ, TELEMARKETING SUPERVISOR URSULA Admitting Unavailable AICHHOLZ, TELEMARKETING SUPERVISOR URSULA Primary Care Unavailable AICHHOLZ, TELEMARKETING SUPERVISOR URSULA Consulting Unavailable KARASIK ., DR FAIRBANKS Consulting Unavailabl e KARASIK ., DR FAIRBANKS Attending Unavailabl e AICHHOLZ, TELEMARKETING SUPERVISOR URSULA Primary Care Unavailable KARASIK ., DR FAIRBANKS Admitting Unavailabl e AICHHOLZ, TELEMARKETING SUPERVISOR URSULA Admitting Unavailable AICHHOLZ, TELEMARKETING SUPERVISOR URSULA Primary Care Unavailable AICHHOLZ, TELEMARKETING SUPERVISOR URSULA Consulting Unavailable AICHHOLZ, TELEMARKETING SUPERVISOR URSULA Attending Unavailable Audi ANGELA Attending Unavailable Audi ANGELA Attending Unavailable NO FAMILY, PHYSICIAN Primary Care Provider Unava ilable NON STAFF Attending Provider Unavailable NON STAFF Attending Unavailable NON STAFF Admitting Unavailable NO FAMILY, PHYSICIAN Primary Care Unavailable AAD SELF Attending Unavailable AICHHOLZ, URSULA Attending Unavailable ANAM KIRKLAND Attending Unavailable AICHHOLZ, URSULA Referring Unavailable ANAM KIRKLAND Attending Unavailable AICHHOLZ, URSULA Attending Unavailable Allergies Allergy Classification Reported Allergen(s) Allergy Type Date of Onset Reaction(s) Facility (7 sources) Loop; Translations: [STRAWBERRIES] Food Intolerance 12-31-19 Hives, Eruption of skin (disorder) [facility] (3 sources) Penicillin; Translations: [penicillin] Drug Allergy 04-12-20 Unknown (qualifier value) [facility] (1 source) Penicillin V Drug Allergy rash [facility] Other (1 source) strawberry allergenic extract Drug Allergy [facility] (1 source) Penicillins Drug allergy (disorder) 04-08-20 [facility] Medications Current Medications Medication Drug Class(es) Dates Sig (Normalized) Sig (Original) brompheniramine maleate 0.4 mg/ml / dextromethorphan hydrobromide 2 mg/ml / pseudoephedrine hydrochloride 6 mg/ml oral solution (1 source) alpha-Adrenergic Agonist, Uncompetitive N-oxggcl-U-aspartate Receptor Antagonist, Sigma-1 Agonist Start: 04-08-2022 take 10 mL by mouth every six hours Pseudoeph-Bromp hen-DM 30-2-10 MG/5ML 10 mL Orally every 6 hours for 5 days Apr, Active dextromethorphan hydrobromide 1.5 mg/ml / pyrilamine maleate 1.5 mg/ml oral solution (1 source) Uncompetitive Z-ciuyxl-V-aspartate Receptor Antagonist, Sigma-1 Agonist Start: 08-27-2021 take 10 mL by mouth every eight hours [place] DM 7.5-7.5 MG/5ML 10 mL Orally every [...] Comment on above: [facility] for 5 days. days 3-7 24 hr metFORMIN hydrochloride 750 mg extended release oral tablet (5 sources) Biguanide Start: 04-04-2022 take 1 mg by mouth once daily metformin 750 mg ER Tab mg tab(s), Oral, Daily, Refills(s) 0 Start Date: 04/04/22 Status: Ordered Start: 01-14-2022 take 2 tablets [facility] once daily at breakfast metFORMIN ER (GLUCOPHAGE XR) 750 mg 24 hr tablet Take 2 tablets by mouth daily with breakfast. 90 tablet 3 01/14/2022 Active metFORMIN HCl Ac tive Comment on above: Take 2 tablets by [facility] daily with breakfast. mupirocin 0.02 mg/mg topical [...] [CONTACT W/AND (SUSP) EXPOS COVID-19] Onset: 05-23-2022 Viral infection (1 source) Verruca vulgaris 04-04-2022 [...] 11-22-2021 Episodic Other aftercare (1 source) Other roasterman (current) drug therapy; Translations: [OTH COOKER SULFATE CURRENT DRUG THERAPY] Onset: 05-23-2022 Episodic Other aftercare (1 source) long term care administrator (current) use of oral hypoglycemic drugs; Translations: [COOKER SULFATE USE ORAL HYPOGLYCEMIC DX] Onset: 05-23-2022 Episodic [...] Test Name Value Interpretation Reference Range Facility [facility] 08-29-2023 L Specimen: [id number] Received: 08/30/23 Status: FATUMA Zuñiga Num: [id number] Spec Type: Surgical Subm Dr: NON STAFF Tissues: A Gallbladder (GALLBLADDER) Procedures: HE, Gross/Micro L3 Age/ Patient Sex Location Account Attending Physician Ramin Hernandez 33/F [place] [id number] NON STAFF SPEC NUM: [id number] RECD: 08/30/23 STATUS: FATUMA ZUÑIGA NUM: [id number] RADHA: 08/29/[address]: DAYSI STAFF ENTERED: 08/30/23 [facility] DR: Roger,Lab SPEC TYPE: Surgical DEPT: SAW LANDIN ORDERED: HE, Gross/Micro L3 ORDERED: HE, Gross/Micro L3 Pathological Diagnosis Gallbladder, cholecystectomy: Chronic cholecystitis and cholelithiasis. Gross Description Received in formalin, labeled with the patient's name and gallbladder is a previously disrupted and fragmented gallbladder measuring in aggregate 6.3 x 2.9 x 2.7 cm. The serosal surface is dawkins-purple, smooth and slightly dusky in appearance. The clamped cystic duct measures 0.3 cm in diameter and is inked black. No cystic duct lymph node is present. The mucosa is dawkins-pink and roughened. Numerous black dawkins-brown multifaceted stones are present within the specimen container ranging from 0.4 - 1.8 cm in greatest dimension. No mucosal polyps or discrete masses are identified the gallbladder wall measures 0.1 to 0.2 cm in maximum thickness. Bariatric Program Coordinator sections are submitted in A1. Clinical history: Symptomatic cholelithiasis CPT Codes 16386 Specimen: [id number] Received: 08/30/23 Status: FATUMA Zuñiga Num: [id number] Spec Type: Surgical Subm Dr: NON STAFF Tissues: A Gallbladder (GALLBLADDER) Procedures: Adiel STEWARD/Placido L3 Patient: Ramin Hernandez [id number] (Continued) Signed (signature on file) Zain Blackburn MD 08/31/23 1703 Normal [facility] Patient Educationon 04-21-20 Patient Education Urology Hematuria, Adult Hematuria is [...] these instructions at home: Medicines ? Take qwjy-jwq-nyrzonq and prescription medicines only as told by [...] the blood stops without treatment. ? Take zlts-ile-ebsthul and prescription medicines only as told by your health care provider. ? Drink enough fluid to keep your urine pale yellow. This information is not intended to replace advice given to you by your health care provider. Make sure you discuss any questions you have with your health care provider. Document Revised: 12/23/2020 Document Reviewed: 12/23/2020 [employer] Patient Education ? 2022 [employer]. Dennys [facility] Urology Office/Clinic Noteon 04-21-2023 Urology Office/Clinic Note [...] Information ALESSANDRO EGAN, Audi Felton, [address] [place] [address]- Additional Instructions: 1 yr w/ KUB Patient [...] Protein Urine Dipstick: Trace (04/21/23 09:54:00) Specific [place] Urine Dipstick: >=1.030 (04/21/23 09:54:00) Urine Appearance Urine Dipstick: Clear (04/21/23 09:54:00) Urine Color Urine Dipstick: Yellow (04/21/23 09:54:00) Urobilinogen Urine Dipstick: Normal 0.2-1 EU/dl (04/21/23 09:54:00) pH Urine Dipstick: 6 (04/21/23 09:54:00) Normal [facility] Comment on above: Result Comment: Elec tronically Signed By: Audi ANGELA MD\.br\Date and Time Signed: 04/21/23 10:39 EST\.br\Electronically Co-Signed By: Armida Moreira\.br\Date and Time Co-Signed: 04/21/23 10:38 EST RAD - MISCon 04-19-2023 RAD - MISC [id number] Normal [facility] 09-05 SARS-CoV-2 (COVID-19) RNA CRISTEL+probe Ql (Unsp spec) Not detected Normal NOT DETECTED [facility] Comment on above: Performed By: #### C VDAGS #### [facility] [address] [place] [address] Dr. Alexei Gonzales INFLUENZA A AND B AGon 09-20 INFLUANEGH SEE BELOW Normal [facility] Comment on above: Result Comment: Nega tive for Flu A protein angiten. Infection due to Flu A cannot be ruled out. Flu A angiten in the sample may be below the detection limit of the test. Performed By: #### I NFLUAB #### [facility] [address] [place] [address] Dr. Alexei Gonzales INFLUBNEGH SEE BELOW Normal [facility] Comment on above: Result Comment: Nega tive for Flu B protein antigen. Infection due to Flu B cannot be ruled out. Flu B antigen in the sample may be below the detection limit of the test. Performed By: #### I NFLUAB #### [facility] [address] [place] [address] Dr. Alexei Gonzales INFLUENZA A AG Negative Normal NEGATIVE SEE COMMENT [facility] Comment on above: Performed By: #### I NFLUAB #### [facility] [address] [place] [address] Dr. Alexei Gonzales INFLUENZA B AG Negative Normal NEGATIVE SEE COMMENT [facility] Comment on above: Performed By: #### I NFLUAB #### [facility] [address] [place] [address] Dr. Alexei Gonzales SYMPTOMATIC COVID-19 ANTIGEN on 09-20-2022 EUA Statement SEE BELOW Normal [facility] Comment on above: Result Comment: This [...] sooner. Performed By: #### C VDAGS #### [facility] [address] [place] [address] Dr. Alexei Gonzales SARS-CoV-2 (COVID-19) RNA CRITSEL+probe Ql (Unsp spec) Negative Normal NEGATIVE [facility] Comment on above: Performed By: #### C VDAGS #### [facility] [address] [place] [address] Dr. Alexei Gonzales CULTURE WOUNDon 08-31-2022 CULTURE WOUND Culture Observations : ANAEROBE PRESENT. Isolate 1 Peptoniphilus lacrimalis Light growth of Normal [facility] Comment on above: Performed By: #### C VDAGS #### [facility] [address] [place] [address] Dr. Alexei Gonzales CBC AUTO DIFFon 05-13-2022 BASO # 0.1 103/ul Normal 0.0-0.1 [facility] Comment on above: Performed By: #### C BC #### [facility] [address] [place] [address] Dr. Alexei Gonzales Basophils/100 WBC (Bld) 0.7 % Normal 0.2-2.0 [facility] Comment on above: Performed By: #### C BC #### [facility] [address] [place] [address] Dr. Alexei Gonzales EO # 0.0 103/ul Normal 0.0-0.7 [facility] Comment on above: Performed By: #### C BC #### [facility] [address] [place] [address] Dr. Alexei Gonzales Eosinophils/100 WBC (Bld) 0.1 % Critically low 0.9-7.0 [facility] Comment on above: Performed By: #### C BC #### [facility] [address] [place] [address] Dr. Alexei Gonzales Erythrocyte distribution width (RBC) [Ratio] 14.6 % Normal 11.0-15.0 [facility] Comment on above: Performed By: #### C BC #### [facility] [address] [place] [address] Dr. Alexei Gonzales Hematocrit (Bld) [Volume fraction] 38.5 % Normal 36.0-48.0 [facility] Comment on above: Performed By: #### C BC #### [facility] [address] [place] [address] Dr. Alexei Gonzales Hemoglobin (Bld) [Mass/Vol] 13.0 g/dL Normal 12.0-16.0 [facility] Comment on above: Performed By: #### C BC #### [facility] [address] [place] [address] Dr. Alexei Gonzales IG # 0.04 10e3/ul Critically high 0.00-0.03 [facility] Comment on above: Performed By: #### C BC #### [facility] [address] [place] [address] Dr. Alexei Gonzales IG % 0.5 % Normal 0.0-0.5 [facility] Comment on above: Performed By: #### C BC #### [facility] [address] [address] [address] Alexei Gonzales LYMPH # 0.3 103/ul Critically low 1.2-3.8 [facility] Comment on above: Performed By: #### C BC #### [facility] [address] [address] [address] Alexei Gonzales Lymphocytes/100 WBC (Bld) 4.6 % Critically low 20.5-60.0 [facility] Comment on above: Performed By: #### C BC #### [facility] [address] [address] [address] Alexei Gonzales MANUAL DIFF REQ NO Normal [facility] Comment on above: Performed By: #### C BC #### [facility] [address] [place] [address] Dr. Alexei Gonzales MCH (RBC) [Entitic mass] 27.0 pg Normal 26.7-34.0 [facility] Comment on above: Performed By: #### C BC #### [facility] [address] [place] [address] Dr. Alexei Gonzales MCHC (RBC) [Mass/Vol] 33.8 g/dL Normal 29.9-35.2 [facility] Comment on above: Performed By: #### C BC #### [facility] [address] [place] [address] Dr. Alexei Gonzales MCV (RBC) [Entitic vol] 79.9 fL Critically low 81.0-99.0 [facility] Comment on above: Performed By: #### C BC #### [facility] [address] [place] [address] Dr. Alexei Gonzales MONO # 0.7 103/ul Normal 0.3-0.8 [facility] Comment on above: Performed By: #### C BC #### [facility] [address] [place] [address] Dr. Alexei Gonzales Monocytes/100 WBC (Bld) 10.1 % Normal 1.7-12.0 [facility] Comment on above: Performed By: #### C BC #### [facility] [address] [place] [address] Dr. Alexei Gonzales NEUT # 6.2 103/ul Normal 1.4-6.5 [facility] Comment on above: Performed By: #### C BC #### [facility] [address] [place] [address] Dr. Alexei Gonzales Neutrophils/100 WBC (Bld) 84.0 % Critically high 43.0-75.0 [facility] Comment on above: Performed By: #### C BC #### [facility] [address] [place] [address] Dr. Alexei Gonzales Platelet mean volume (Bld) [Entitic vol] 10.2 fL Normal 9.5-13.5 [facility] Comment on above: Performed By: #### C BC #### [facility] [address] [place] [address] Dr. Alexei Gonzales PLT 266 103/ul Normal 150-450 [facility] Comment on above: Performed By: #### C BC #### [facility] [address] [place] [address] Dr. Alexei Gonzales RBC 4.82 106/ul Normal 4.20-5.40 [facility] Comment on above: Performed By: #### C BC #### [facility] [address] [place] [address] Dr. Alexei Gonzales WBC 7.3 103/ul Normal 4.0-11.0 [facility] Comment on above: Performed By: #### C BC #### [facility] [address] [place] [address] Dr. Alexei Gonzales Covid-19 PCR (CVDTB)on SARS-CoV-2 (COVID-19) RNA CRISTEL+probe Ql (Unsp spec) Not detected Normal NOT DETECTED [facility] Comment on above: Result Comment: This test is not yet approved or cleared by the [place] FDA. When there are no FDA-approved or cleared tests available, and other criteria are met, FDA can make tests available under an emergency access mechanism called an Emergency Use Authorization (EUA). The EUA for this test is supported by the [place] of Health and Human Service's (HHS's) declaration [...] SARS-CoV-2. Performed By: #### C BC #### [facility] [address] [place] [address] Dr. Alexei Gonzales GROUP A STREP CULTUREon S. pyogenes Ag Ql (Unsp spec) Culture Observations: NEGATIVE FOR GROUP A STREPTOCOCCUS. Normal [facility] Comment on above: Performed By: #### C VDAGS #### [facility] [address] [place] [address] Dr. Alexei Gonzales INFLUENZA A AND B AGon 05-13 INFLUANEGH SEE BELOW Normal [facility] Comment on above: Result Comment: Nega tive for Flu A protein angiten. Infection due to Flu A cannot be ruled out. Flu A angiten in the sample may be below the detection limit of the test. Performed By: #### C BC #### [facility] [address] [place] [address] Dr. Alexei Gonzales INFLUBNEGH SEE BELOW Normal [facility] Comment on above: Result Comment: Nega tive for Flu B protein antigen. Infection due to Flu B cannot be ruled out. Flu B antigen in the sample may be below the detection limit of the test. Performed By: #### C BC #### [facility] [address] [place] [address] Dr. Alexei Gonzales INFLUENZA A AG Negative Normal NEGATIVE SEE COMMENT [facility] Comment on above: Performed By: #### C BC #### [facility] [address] [place] [address] Dr. Alexei Gonzales INFLUENZA B AG Negative Normal NEGATIVE SEE COMMENT [facility] Comment on above: Performed By: #### C BC #### [facility] [address] [address] [address] Alexei Gonzales PREG HCG QUALon 05-13-2022 , QUAL Negative Normal NEGATIVE [facility] Comment on above: Performed By: #### C VDAGS #### [facility] [address] [place] [address] Dr. Alexei Gonzales PROF 14(COMP METB)on 023 Albumin [Mass/Vol] 3.6 g/dL Normal 3.4-5.0 [facility] Comment on above: Performed By: #### C MP #### [facility] [address] [place] [address] Dr. Alexei Gonzales Albumin/Globulin [Mass ratio] 0.8 {ratio} Normal [facility] Comment on above: Performed By: #### C MP #### [facility] [address] [place] [address] Dr. Alexei Gonzales ALP [Catalytic activity/Vol] 95 U/L Normal 46-116 [facility] Comment on above: Performed By: #### C MP #### [facility] [address] [address] [address] Alexei Gonzales ALT [Catalytic activity/Vol] 62 U/L Critically high 14-59 [facility] Comment on above: Performed By: #### C MP #### [facility] [address] [address] [address] Alexei Gonzales Anion gap [Moles/Vol] 11.2 mmol/L Normal [facility] Comment on above: Performed By: #### C MP #### [facility] [address] [address] [address] Alexei Gonzales AST [Catalytic activity/Vol] 44 U/L Critically high 15-37 [facility] Comment on above: Performed By: #### C MP #### [facility] [address] [place] [address] Dr. Alexei Gonzales Bilirubin [Mass/Vol] 0.3 mg/dL Normal 0.2-1.0 [facility] Comment on above: Performed By: #### C MP #### [facility] [address] [address] [address] Alexei Gonzales Calcium [Mass/Vol] 8.9 mg/dL Normal 8.5-10.1 [facility] Comment on above: Performed By: #### C MP #### [facility] [address] [address] [address] Alexei Gonzales Chloride [Moles/Vol] 100 mmol/L Normal 98-107 [facility] Comment on above: Performed By: #### C MP #### [facility] [address] [address] [address] Alexei Gonzales CO2 [Moles/Vol] 26.4 mmol/L Normal 21.0-32.0 [facility] Comment on above: Performed By: #### C MP #### [facility] [address] [place] [address] Dr. Alexei Gonzales Creatinine [Mass/Vol] 0.98 mg/dL Normal 0.55-1.02 [facility] Comment on above: Performed By: #### C MP #### [facility] [address] [place] [address] Dr. Alexei Gonzales EGFR-AF KUWAITI >60 Normal >=60 [facility] Comment on above: Performed By: #### C MP #### [facility] [address] [place] [address] Dr. Alexei Gonzales EGFR-NON AF [place]I >60 Normal >=60 [facility] Comment on above: Performed By: #### C MP #### [facility] [address] [place] [address] Dr. Alexei Gonzales Globulin (S) [Mass/Vol] 4.3 g/dL Normal [facility] Comment on above: Performed By: #### C MP #### [facility] [address] [place] [address] Dr. Alexei Gonzales Glucose [Mass/Vol] 125 mg/dL Critically high 74-106 T [facility] Comment on above: Performed By: #### C MP #### [facility] [address] [place] [address] Dr. Alexei Gonzales Potassium [Moles/Vol] 3.6 mmol/L Normal 3.5-5.1 [facility] Comment on above: Performed By: #### C MP #### [facility] [address] [address] [address] Alexei Gonzales Protein [Mass/Vol] 7.9 g/dL Normal 6.4-8.2 [facility] Comment on above: Performed By: #### C MP #### [facility] [address] [address] [address] Alexei Gonzales Sodium [Moles/Vol] 134 mmol/L Critically low 136-145 Th [facility] Comment on above: Performed By: #### C MP #### [facility] [address] [address] [address] Alexei Gonzales Urea nitrogen [Mass/Vol] 12.0 mg/dL Normal 7.0-18.0 [facility] Comment on above: Performed By: #### C MP #### [facility] [address] [address] [address] Alexei Gonzales Urea nitrogen/Creatinin e [Mass ratio] 12.2 mg/mg Normal [facility] Comment on above: Performed By: #### C MP #### [facility] [address] [place] [address] Dr. Alexei Gonzales STREPT SCREENon 05-13-2022 STREP SCREEN A Negative Normal NEGATIVE [facility] Comment on above: Performed By: #### C VDAGS #### [facility] [address] [address] ABD/PELV WO W [...] by: BORIS OSHEA Date: 2022-04-15 11:19 Normal [facility] COVID/FLU/RSV RT-PCRon 04-08 SARS-CoV-2 (COVID-19) RNA CRISTEL+probe Ql (Unsp spec) Positive [employer] Other COVID/FLU/RSV RT-PCR Negative [employer] Other CNPNon 01-25-2022 [facility] Telephone (REITW) -- RAMIN RICKS ([id number]) 1990 F Date Time Provider Department 01/25/22 MONICA TORRES During your visit today, we recorded the following information about you: Erica Oscar RN 01/25/2022 9:52 AM Signed Routing to [facility] ivf Pool to refuse provera refill Just filled 1 weeks ago Erica Oscar RN January 25, 2022 9:52 AM Dilcia Dawn APRN.TELEMARKETING SUPERVISOR 01/25/2022 10:09 AM Signed Patient's request for [...] Encounter Status:Closed by DILCIA DAWN on 01/25/22 [facility] 01-18-2022 [facility] Telephone (Q) -- RAMIN RICKS ([id number]) 1990 F Date Time Provider Department 01/18/22 LACEY TEMPLE Alan During your visit today, we recorded the following information about you: Luciana Dennis 01/18/2022 10:31 AM Signed MD Lay Lau i A10 Scheduling Pool New PCOS patient for [...] Status:Closed by LUCIANA DENNIS on 01/18/22 Normal [facility] XR KUB 1 VIEWon 01-17-2022 XR KUB [...] by: ISMAEL IQBAL Date: 2022-01-17 13:05 Normal [facility] 25(OH)D3 [facility] 2021 25-hydroxyvitamin D3 [Mass/Vol] 23.4 ng/mL Low 31.0-80.0 [facility] Comment on above: Order Comment: Speci men Type: BLOOD SPECIMEN Ordering Facility: [facility] Address: [facility] [place] [address] Result Comment: Clas sification of 25 [place] Vitamin D status: Deficiency/Insufficiency: < or = 30 ng/ml. Sufficiency/Optimal Levels: 31-80 ng/mL Toxicity: > 100 ng/mL. Test performed by chemiluminescent immunoassay. Performed By: #### V ZVG2, 1988-07XOCHITL #### [facility] RASHEEDIA [id number] [address] [place] [address] [place] CNOVon 12-30-2021 CNOV Office Visit (REISO) -- JAUNRAMIN KATZ ([id number]) 1990 F Date Time Provider Department 12/30/21 [...] which included preparing to see the patient, [id number] patient care, completing clinical documentation, obtaining and/or reviewing separately obtained history, counseling and educating the patient/family/caregiver, and ordering medications, tests, or procedures. Monica Torres MD letter to Dr. Longo Referring Provider: BRIANNA TREJO [[id number]] Allergies As of Date: 12/30/2021 Noted Allergy Reaction STRAWBERRIES 12/30/2021 4 - Hives Date Reviewed: 12/30/2021 Reviewed by: Cinthia Price Ma - Fully Assessed Reason for Visit: New Patient [172] Infertility [285] Primary Visit Diagnosis:Primary amenorrhea [N91.0] Order(s):TSH BLD [SQTSH] Order #: [id number] FUTURE PROLACTIN BLD [SQPROL] Order #: [id number] FUTURE RUBELLA IGG AB [SQRUBQNT] Order #: [id number] FUTURE VARICELLA ZOSTER IGG [SQVZVG] Order #: [id number] FUTURE VITAMIN D 25 HYDROXY [SQVITD] Order #: [id number] FUTURE TYPE + SCREEN [SQTSCR] Order #: [id number] FUTURE FSH BLD [SQFSH] Order #: [id number] FUTURE ESTRADIOL-17B BLD [SQE2] Order #: [id number] FUTURE HGB A1C [TMXYC1B] Order #: [id number] FUTURE Prescriptions as of 12/30/2021 - PNV no.95/ferrous fum/folic ac ( ORAL) Take by mouth. Problem List As Of Date: 12/30/2021 (None) Encounter Status:Closed by MONICA TORRES on 12/30/21 Normal [facility]adiol [facility] E2 [Mass/Vol] 60 pg/mL Normal [facility] Comment on above: Order Comment: Speci men Type: BLOOD SPECIMEN Ordering Facility: [facility] Address: [address] [place] [id number] Result Comment: This test is not suitable [...] 3243 pg/mL Second trimester : 1561 to 38661 pg/mL Third trimester : 8285 to >37624 pg/mL Post-menopausal Estradiol reference range: < 41 pg/mL Reference: 1. Estradiol - E2 (Estradiol III) [package insert V 3.0 Lithuanian]. [employer], [place], [place], October 2015. Performed By: #### 3 016-3, 89291-6, 2243-4, 2842-3 #### [facility] CLIA [id number] [address] [place] [address] [place] FSH SerPl-aCncon 12-30-2021 Follitropin Qn 6.4 m[IU]/mL Normal See comment [facility] Comment on above: Order Comment: Speci men Type: BLOOD SPECIMEN Ordering Facility: [facility] Address: [address] [place] [address] Result Comment: Refe rence range: Follicular: 3.5-12.5 mIU/mL Midcycle: 4.7-21.5 mIU/mL Luteal: 1.7-7.7 mIU/mL Post Lanny: 25.8-134.8 mIU/mL Performed By: #### 3 016-3, 56821-3, 2243-4, 2842-3 #### [facility] CLIA [id number] [address] [address] HbA1c (Bld)on 12-30-2021 Average glucose Estimated from glycated hemoglobin (Bld) [Mass/Vol] 120 mg/dL Normal [facility] Comment on above: Order Comment: Speci men Type: BLOOD SPECIMEN Ordering Facility: [facility] Address: [address] [place] [address] Result Comment: eAG: (Estimated average glucose) is a calculated value from HgbA1c and is loan servicing representative of the average blood glucose level in the last 2-3 month period. Performed By: #### 5 5454-3 #### [facility] CLIA [id number] [address] [place] [address] [place] HbA1c (Bld) [Mass fraction] 5.8 % High 4.3-5.6 [facility] Comment on above: Order Comment: Rayne putnam Type: BLOOD SPECIMEN Ordering Facility: [facility] Address: [address] [place] [address] Result Comment: Amer [place] Diabetes Association guidelines indicate that patients with HgbA1c in the range 5.7-6.4% are at increased risk for development of diabetes, and intervention by lifestyle modification may be beneficial. HgbA1c greater or equal to 6.5% is considered diagnostic of diabetes. Performed By: #### 5 5454-3 #### [facility] CLIA [id number] [address] [place] [address] OF [place] Prolactin SerPl-mCncon 12-30 Prolactin [Mass/Vol] 10.3 ng/mL Normal 4.5-26.8 [facility] Comment on above: Order Comment: Rayne putnam Type: BLOOD SPECIMEN Ordering Facility: [facility] Address: [address] [place] [address] Result Comment: Prol actin test is performed using the [employer] Electrochemiluminescence Immunoassay method. Results obtained with different methods or kits cannot be used interchangeably. Performed By: #### 3 016-3, 07014-6, 2243-4, 2842-3 #### [facility] CLIA [id number] [address] [place] [address] OF [place] RUBELLA IGG ABon 12-30-2021 RUBELLA IGG AB, QUAL Positive Normal Positive [facility] Comment on above: Order Comment: Rayne putnam Type: BLOOD SPECIMEN Ordering Facility: [facility] Address: [address] [place] [address] Result Comment: The result suggests recent or past exposure to Rubella virus or history of Rubella vaccination. Positive result may also be seen due to presence of passively-transferred antibodies. Please correlate with patient's history. Performed By: #### V ZVG2, 1988-3, RUBIGG #### [facility] CLIA [id number] [address] [place] [address] [place] TSH SerPl-aCncon 12-30-2021 TSH Qn 2.730 m[IU]/L Normal 0.270-4.200 [facility] Comment on above: Order Comment: Specanthony putnam Type: BLOOD SPECIMEN Ordering Facility: [facility] Address: [address] [place] [address] Result Comment: If t he patient is , TSH reference range varies by gestational period: First Trimester (weeks 9-12): 0.180-2.990 mIU/L Second Trimester: 0.110-3.980 mIU/L Third Trimester: 0.480-4.710 mIU/L Soham Joaquin et al. A Practical Approach for the Verifications and Determination of Site- and Trimester-Specific Reference Intervals for Thyroid Function tests in . Thyroid, 2019:29:3:412-420. Tavares E, et al. 2017 Guidelines of the [place] Thyroid Association for the Diagnosis and Management of Thyroid Disease during and the . Thyroid, 2017:27:3:315-389. Performed By: #### 3 016-3, 25869-3, 2243-4, 2842-3 #### [facility] CLIA [id number] [address] [place] [address] [place] TYPE + SCREENon 12-30-2021 HISTORICAL AB SCR STATUS Negative Normal [facility] Comment on above: Order Comment: Rayne putnam Type: BLOOD SPECIMENOrdering Facility: [facility] Address: [address] [place] [address] Performed By: #### T SCR ####[facility]CL[facility] [id number] [place] [address] [place] TYPE AND SCREEN EXPIRATION 01/02/2022 23:59 Normal [facility] Comment on above: Order Comment: Rayne putnam Type: BLOOD SPECIMENOrdering Facility: [facility] Address: [address] [place] [address] Performed By: #### T SCR ####[facility] BANKCLIA [id number] [address] [place] VARICELLA ZOSTER IGGon 12-30 VARICELLA ZOSTER IGG, QUAL Positive Normal Positive [facility] Comment on above: Order Comment: Speci men Type: BLOOD SPECIMEN Ordering Facility: [facility] Address: [address] [place] [address] Result Comment: The result suggests recent or past exposure to Varicella-Zoster virus or chickenpox vaccination or zoster vaccination. Positive result may also be seen due to presence of passively-transferred antibodies. Please correlate with patient's history. Performed By: #### V ZVG2, 1988-3, RUBIGG #### [facility] CLIA [id number] [address] [place] [address] OF [place] CULTURE URINEon 12-21-2021 CULTURE URINE Culture Observations : LIGHT GROWTH OF MIXED GENITAL ANTONIO. NO POTENTIAL PATHOGENS SEEN. Normal [facility] Comment on above: Performed By: #### C VDAGS #### [facility] [address] [place] [address] Dr. Alexei Gonzales UA RANDOM W/MICROSCOPICon BACTERIA TRACE Abnormal NONE SEEN [facility] Comment on above: Performed By: #### C BC #### [facility] [address] [place] [address] Dr. Alexei Gonzales Bilirubin Ql (U) Negative Normal NEGATIVE [facility] Comment on above: Performed By: #### C BC #### [facility] [address] [address] [address] Alexei Gonzales CAST NONE SEEN Normal NONE SEEN [facility] Comment on above: Performed By: #### C BC #### [facility] [address] [address] [address] Alexei Gonzales Clarity (U) CLEAR Normal CLEAR [facility] Comment on above: Performed By: #### C BC #### [facility] [address] [address] [address] Alexei Gonzales Color (U) YELLOW Normal YELLOW [facility] Comment on above: Performed By: #### C BC #### [facility] [address] [place] [address] Dr. Alexei Gonzales Crystals LM Nom (Urine sed) NONE SEEN Normal NONE SEEN [facility] Comment on above: Performed By: #### C BC #### [facility] [address] [place] [address] Dr. Alexei Gonzales Epithelial cells LM Ql (Urine sed) FEW Abnormal NONE SEEN /RARE [facility] Comment on above: Performed By: #### C BC #### [facility] [address] [place] [address] Dr. Alexei Gonzales Glucose Ql (U) Negative Normal NEGATIVE [facility] Comment on above: Performed By: #### C BC #### [facility] [address] [place] [address] Dr. Alexei Gonzales Hemoglobin Ql (U) TRACE-LYSED Abnormal NEGATIVE [facility] Comment on above: Performed By: #### C BC #### [facility] [address] [place] [address] Dr. Alexei Gonzales Ketones Ql (U) Negative Normal NEGATIVE [facility] Comment on above: Performed By: #### C BC #### [facility] [address] [place] [address] Dr. Alexei Gonzales LEUKOCYTES Negative Normal NEGATIVE [facility] Comment on above: Performed By: #### C BC #### [facility] [address] [place] [address] Dr. Alexei Gonzales MUCOUS NONE SEEN Normal NONE SEEN [facility] Comment on above: Performed By: #### C BC #### [facility] [address] [place] [address] Dr. Alexei Gonzales Nitrite Ql (U) Negative Normal NEGATIVE [facility] Comment on above: Performed By: #### C BC #### [facility] [address] [place] [address] Dr. Alexei Gonzales pH (U) 6.0 [pH] Normal 5-9 [facility] Comment on above: Performed By: #### C BC #### [facility] [address] [place] [address] Dr. Alexei Gonzales RBC 2-5 Abnormal 0-2 [facility] Comment on above: Performed By: #### C BC #### [facility] [address] [place] [address] Dr. Alexei Gonzales SPEC GRAVITY >=1.030 Abnormal 1.005-<=1.0 25 [facility] Comment on above: Performed By: #### C BC #### [facility] [address] [place] [address] Dr. Alexei Gonzales UA PROTEIN Negative Normal NEGATIVE/ TRACE [facility] Comment on above: Performed By: #### C BC #### [facility] [address] [place] [address] Dr. Alexei Gonzales Urobilinogen Qn (U) 0.2 {Albin'U}/dL Normal 0.2 - 1.0 [facility] Comment on above: Performed By: #### C BC #### [facility] [address] [place] [address] Dr. Alexei Gonzales WBC 0-2 Abnormal NONE SEEN [facility] Comment on above: Performed By: #### C BC #### [facility] [address] [place] [address] Dr. Alexei Gonzales CBC AUTO DIFFon 11-30-2021 BASO # 0.1 103/ul Normal 0.0-0.1 [facility] Comment on above: Performed By: #### C VDAGS #### [facility] [address] [place] [address] Dr. Alexei Gonzales Basophils/100 WBC (Bld) 0.4 % Normal 0.2-2.0 [facility] Comment on above: Performed By: #### C VDAGS #### [facility] [address] [place] [address] Dr. Alexei Gonzales EO # 0.2 103/ul Normal 0.0-0.7 [facility] Comment on above: Performed By: #### C VDAGS #### [facility] [address] [place] [address] Dr. Alexei Gonzales Eosinophils/100 WBC (Bld) 1.9 % Normal 0.9-7.0 [facility] Comment on above: Performed By: #### C VDAGS #### [facility] [address] [place] [address] Dr. Alexei Gonzales Erythrocyte distribution width (RBC) [Ratio] 13.3 % Normal 11.0-15.0 [facility] Comment on above: Performed By: #### C VDAGS #### [facility] [address] [place] [address] Dr. Alexei Gonzales Hematocrit (Bld) [Volume fraction] 40.8 % Normal 36.0-48.0 [facility] Comment on above: Performed By: #### C VDAGS #### [facility] [address] [place] [address] Dr. Alexei Gonzales Hemoglobin (Bld) [Mass/Vol] 13.0 g/dL Normal 12.0-16.0 [facility] Comment on above: Performed By: #### C VDAGS #### [facility] [address] [place] [address] Dr. Alexei Gonzales IG # 0.05 10e3/ul Critically high 0.00-0.03 [facility] Comment on above: Performed By: #### C VDAGS #### [facility] [address] [place] [address] Dr. Alexei Gonzales IG % 0.4 % Normal 0.0-0.5 [facility] Comment on above: Performed By: #### C VDAGS #### [facility] [address] [place] [address] Dr. Alexei Gonzales LYMPH # 3.4 103/ul Normal 1.2-3.8 [facility] Comment on above: Performed By: #### C VDAGS #### [facility] [address] [place] [address] Dr. Alexei Gonzales Lymphocytes/100 WBC (Bld) 29.1 % Normal 20.5-60.0 [facility] Comment on above: Performed By: #### C VDAGS #### [facility] [address] [place] [address] Dr. Alexei Gonzales MANUAL DIFF REQ NO Normal [facility] Comment on above: Performed By: #### C VDAGS #### [facility] [address] [place] [address] Dr. Alexei Gonzales MCH (RBC) [Entitic mass] 27.3 pg Normal 26.7-34.0 [facility] Comment on above: Performed By: #### C VDAGS #### [facility] [address] [place] [address] Dr. Alexei Gonzales MCHC (RBC) [Mass/Vol] 31.9 g/dL Normal 29.9-35.2 [facility] Comment on above: Performed By: #### C VDAGS #### [facility] [address] [place] [address] Dr. Alexei Gonzales MCV (RBC) [Entitic vol] 85.5 fL Normal 81.0-99.0 [facility] Comment on above: Performed By: #### C VDAGS #### [facility] [address] [place] [address] Dr. Alexei Gonzales MONO # 0.7 103/ul Normal 0.3-0.8 [facility] Comment on above: Performed By: #### C VDAGS #### [facility] [address] [place] [address] Dr. Alexei Gonzales Monocytes/100 WBC (Bld) 5.9 % Normal 1.7-12.0 [facility] Comment on above: Performed By: #### C VDAGS #### [facility] [address] [place] [address] Dr. Alexei Gonzales NEUT # 7.4 103/ul Critically high 1.4-6.5 [facility] Comment on above: Performed By: #### C VDAGS #### [facility] [address] [place] [address] Dr. Alexei Gonzales Neutrophils/100 WBC (Bld) 62.3 % Normal 43.0-75.0 [facility] Comment on above: Performed By: #### C VDAGS #### [facility] [address] [place] [address] Dr. Alexei Gonzales Platelet mean volume (Bld) [Entitic vol] 10.4 fL Normal 9.5-13.5 [facility] Comment on above: Performed By: #### C VDAGS #### [facility] [address] [place] [address] Dr. Alexei Gonzales PLT 319 103/ul Normal 150-450 [facility] Comment on above: Performed By: #### C VDAGS #### [facility] [address] [place] [address] Dr. Alexei Gonzales RBC 4.77 106/ul Normal 4.20-5.40 [facility] Comment on above: Performed By: #### C VDAGS #### [facility] [address] [place] [address] Dr. Alexei Gonzales WBC 11.8 103/ul Critically high 4.0-11.0 [facility] Comment on above: Performed By: #### C VDAGS #### [facility] [address] [place] [address] Dr. Alexei Gonzales FREE T4on 11-30-2021 Free T4 [Mass/Vol] 1.20 ng/dL Normal 0.76-1.46 [facility] Comment on above: Performed By: #### F T4 #### [facility] [address] [place] [address] Dr. Alexei Gonzales GLYCOHEMOGLOBIN A1Con 2021 ADA RECOMMENDATION SEE BELOW Normal [facility] Comment on above: Result Comment: ADA RECOMMENDED LIMIT 4.0 - 6.0 ADA THERAPEUTIC TARGET < 7.0 ACTION SUGGESTED > 7.0 Performed By: #### A 1C #### [facility] [address] [place] [address] Dr. Alexei Gonzales Glucose [Mass/Vol] 126 mg/dL Normal [facility] Comment on above: Performed By: #### A 1C #### [facility] [address] [place] [address] Dr. Alexei Gonzales HbA1c (Bld) [Mass fraction] 6.0 % Normal 4.5-6.2 [facility] Comment on above: Performed By: #### A 1C #### [facility] [address] [address] [address] Alexei Gonzales LIPID PROFILEon 11-30-2021 CHOL-HDL RATIO NORM SEE BELOW Normal [facility] Comment on above: Result Comment: 3.3 - 4.4 LOW RISK 4.4 - 7.1 AVERAGE RISK 7.1 - 11.0 MODERATE RISK >11.0 HIGH RISK Performed By: #### L IPID, CMP, TSH #### [facility] [address] [address] [address] Alexei Gonzales Cholesterol [Mass/Vol] 180 mg/dL Normal <=200 [facility] Comment on above: Performed By: #### L IPID, CMP, TSH #### [facility] [address] [place] [address] Dr. Alexei Gonzales Cholesterol in HDL [Mass/Vol] 40 mg/dL Normal 40-60 [facility] Comment on above: Performed By: #### L IPID, CMP, TSH #### [facility] [address] [address] [address] Alexei Gonzales Cholesterol in LDL [Mass/Vol] 114.4 mg/dL Normal [facility] Comment on above: Performed By: #### L IPID, CMP, TSH #### [facility] [address] [place] [address] Dr. Alexei Gonzales Cholesterol.total/ Cholesterol in HDL [Mass ratio] 4.5 {ratio} Normal [facility] Comment on above: Performed By: #### L IPID, CMP, TSH #### [facility] [address] [address] [address] Alexei Gonzales HDL NORMAL > or = 60 mg/dl - LO W CARDIOVASCULAR RISK <40 mg/dl - HIGH CARDIOVASCULAR RISK Normal [facility] Comment on above: Performed By: #### L IPID, CMP, TSH #### [facility] [address] [place] [address] Dr. Alexei Goznales LDL CALC NORMAL SEE BELOW Normal [facility] Comment on above: Result Comment: <100 mg/dl OPTIMAL 100 - 129 mg/dl NEAR OR ABOVE OPTIMAL 130 - 159 mg/dl BORDERLINE HIGH 160 - 189 mg/dl HIGH >190 mg/dl VERY HIGH Performed By: #### L IPID, CMP, TSH #### [facility] [address] [address] [address] Alexei Gonzales Triglyceride [Mass/Vol] 128 mg/dL Normal <=150 [facility] Comment on above: Performed By: #### L IPID, CMP, TSH #### [facility] [address] [address] [address] Alexei Gonzales VLDL CALC 25.6 mg/dL Normal [facility] Comment on above: Performed By: #### L IPID, CMP, TSH #### [facility] [address] [address] [address] Alexei Gonzales PROF 14(COMP METB)on 022 Albumin [Mass/Vol] 3.4 g/dL Normal 3.4-5.0 [facility] Comment on above: Performed By: #### L IPID, CMP, TSH #### [facility] [address] [address] [address] Alexei Gonzales Albumin/Globulin [Mass ratio] 0.9 {ratio} Normal [facility] Comment on above: Performed By: #### L IPID, CMP, TSH #### [facility] [address] [place] [address] Dr. Alexei Gonzales ALP [Catalytic activity/Vol] 81 U/L Normal 46-116 [facility] Comment on above: Performed By: #### L IPID, CMP, TSH #### [facility] [address] [address] [address] Alexei Gonzales ALT [Catalytic activity/Vol] 41 U/L Normal 14-59 [facility] Comment on above: Performed By: #### L IPID, CMP, TSH #### [facility] [address] [place] [address] Dr. Alexei Gonzales Anion gap [Moles/Vol] 10.6 mmol/L Normal [facility] Comment on above: Performed By: #### L IPID, CMP, TSH #### [facility] [address] [place] [address] Dr. Alexei Gonzales AST [Catalytic activity/Vol] 22 U/L Normal 15-37 [facility] Comment on above: Performed By: #### L IPID, CMP, TSH #### [facility] [address] [place] [address] Dr. Alexei Gonzales Bilirubin [Mass/Vol] 0.4 mg/dL Normal 0.2-1.0 [facility] Comment on above: Performed By: #### L IPID, CMP, TSH #### [facility] [address] [address] [address] Alexei Gonzales Calcium [Mass/Vol] 9.1 mg/dL Normal 8.5-10.1 [facility] Comment on above: Performed By: #### L IPID, CMP, TSH #### [facility] [address] [place] [address] Dr. Alexei Gonzales Chloride [Moles/Vol] 105 mmol/L Normal 98-107 [facility] Comment on above: Performed By: #### L IPID, CMP, TSH #### [facility] [address] [place] [address] Dr. Alexei Gonzales CO2 [Moles/Vol] 25.6 mmol/L Normal 21.0-32.0 [facility] Comment on above: Performed By: #### L IPID, CMP, TSH #### [facility] [address] [place] [address] Dr. Alexei Gonzales Creatinine [Mass/Vol] 0.84 mg/dL Normal 0.55-1.02 [facility] Comment on above: Performed By: #### L IPID, CMP, TSH #### [facility] [address] [place] [address] Dr. Alexei Gonzales EGFR-AF KUWAITI >60 Normal >=60 [facility] Comment on above: Performed By: #### L IPID, CMP, TSH #### [facility] [address] [place] [address] Dr. Alexei Gonzales EGFR-NON AF [place]I >60 Normal >=60 [facility] Comment on above: Performed By: #### L IPID, CMP, TSH #### [facility] [address] [address] [address] Alexei Gonzales Globulin (S) [Mass/Vol] 4.0 g/dL Normal [facility] Comment on above: Performed By: #### L IPID, CMP, TSH #### [facility] [address] [address] [address] Alexei Gonzales Glucose [Mass/Vol] 113 mg/dL Critically high 74-106 [facility] Comment on above: Performed By: #### L IPID, CMP, TSH #### [facility] [address] [address] [address] Alexei Gonzales Potassium [Moles/Vol] 4.2 mmol/L Normal 3.5-5.1 [facility] Comment on above: Performed By: #### L IPID, CMP, TSH #### [facility] [address] [address] [address] Alexei Gonzales Protein [Mass/Vol] 7.4 g/dL Normal 6.4-8.2 [facility] Comment on above: Performed By: #### L IPID, CMP, TSH #### [facility] [address] [address] [address] Alexei Gonzales Sodium [Moles/Vol] 137 mmol/L Normal 136-145 [facility] Comment on above: Performed By: #### L IPID, CMP, TSH #### [facility] [address] [address] [address] Alexei Gonzales Urea nitrogen [Mass/Vol] 14.0 mg/dL Normal 7.0-18.0 [facility] Comment on above: Performed By: #### L IPID, CMP, TSH #### [facility] [address] [address] [address] Alexei Gonzales Urea nitrogen/Creatinin e [Mass ratio] 16.7 mg/mg Normal [facility] Comment on above: Performed By: #### L IPID, CMP, TSH #### [facility] [address] [address] [address] Alexei Gonzales TSHon 11-30-2021 TSH 1.150 uIU/mL Normal 0.358-3.740 [facility] Comment on above: Performed By: #### L IPID, CMP, TSH #### [facility] [address] [place] [address] Dr. Alexei Gonzales UA RANDOM W/MICROSCOPICon BACTERIA SMALL Abnormal NONE SEEN [facility] Comment on above: Performed By: #### C BC #### [facility] [address] [place] [address] Dr. Alexei Gonzales Bilirubin Ql (U) Negative Normal NEGATIVE [facility] Comment on above: Performed By: #### C BC #### [facility] [address] [place] [address] Dr. Alexei Gonzales CAST NONE SEEN Normal NONE SEEN [facility] Comment on above: Performed By: #### C BC #### [facility] [address] [place] [address] Dr. Alexei Gonzales Clarity (U) CLEAR Normal CLEAR [facility] Comment on above: Performed By: #### C BC #### [facility] [address] [place] [address] Dr. Alexei Gonzales Color (U) YELLOW Normal YELLOW [facility] Comment on above: Performed By: #### C BC #### [facility] [address] [place] [address] Dr. Alexei Gonzales Crystals LM Nom (Urine sed) NONE SEEN Normal NONE SEEN [facility] Comment on above: Performed By: #### C BC #### [facility] [address] [place] [address] Dr. Alexei Gonzales Epithelial cells LM Ql (Urine sed) MODERATE Abnormal NONE SEEN /RARE [facility] Comment on above: Performed By: #### C BC #### [facility] [address] [place] [address] Dr. Alexei Gonzales Glucose Ql (U) Negative Normal NEGATIVE [facility] Comment on above: Performed By: #### C BC #### [facility] [address] [place] [address] Dr. Alexei Gonzales Hemoglobin Ql (U) TRACE-INTACT Abnormal NEGATIVE [facility] Comment on above: Performed By: #### C BC #### [facility] [address] [place] [address] Dr. Alexei Gonzales Ketones Ql (U) TRACE Abnormal NEGATIVE [facility] Comment on above: Performed By: #### C BC #### [facility] [address] [address] [address] Alexei Gonzales LEUKOCYTES Negative Normal NEGATIVE [facility] Comment on above: Performed By: #### C BC #### [facility] [address] [address] [address] Alexei Gonzales MUCOUS TRACE Abnormal NONE SEEN [facility] Comment on above: Performed By: #### C BC #### [facility] [address] [place] [address] Dr. Alexei Gonzales Nitrite Ql (U) Negative Normal NEGATIVE [facility] Comment on above: Performed By: #### C BC #### [facility] [address] [place] [address] Dr. Alexei Gonzales pH (U) 5.5 [pH] Normal 5-9 [facility] Comment on above: Performed By: #### C BC #### [facility] [address] [place] [address] Dr. Alexei Gonzales RBC 2-5 Abnormal 0-2 [facility] Comment on above: Performed By: #### C BC #### [facility] [address] [place] [address] Dr. Alexei Gonzales SPEC GRAVITY >=1.030 Abnormal 1.005-<=1.0 25 [facility] Comment on above: Performed By: #### C BC #### [facility] [address] [place] [address] Dr. Alexei Gonzales UA PROTEIN Negative Normal NEGATIVE/ TRACE [facility] Comment on above: Performed By: #### C BC #### [facility] [address] [place] [address] Dr. Alexei Gonzales Urobilinogen Qn (U) 0.2 {Albin'U}/dL Normal 0.2 - 1.0 [facility] Comment on above: Performed By: #### C BC #### [facility] [address] [place] [address] Dr. Alexei Gonzales WBC 2-5 Abnormal NONE SEEN [facility] Comment on above: Performed By: #### C BC #### [facility] [address] [place], [place] [address] Dr. Alexei Gonzales CBC AUTO DIFFon 11-22-2021 BASO # 0.1 103/ul Normal 0.0-0.1 [facility] Comment on above: Performed By: #### C BC #### [facility] [address] [place] [address] Dr. Alexei Gonzales Basophils/100 WBC (Bld) 0.4 % Normal 0.2-2.0 [facility] Comment on above: Performed By: #### C BC #### [facility] [address] [place] [address] Dr. Alexei Gonzales EO # 0.2 103/ul Normal 0.0-0.7 [facility] Comment on above: Performed By: #### C BC #### [facility] [address] [place] [address] Dr. Alexei Gonzales Eosinophils/100 WBC (Bld) 1.4 % Normal 0.9-7.0 [facility] Comment on above: Performed By: #### C BC #### [facility] [address] [place] [address] Dr. lAexei Gonzales Erythrocyte distribution width (RBC) [Ratio] 13.2 % Normal 11.0-15.0 [facility] Comment on above: Performed By: #### C BC #### [facility] [address] [place] [address] Dr. Alexei Gonzales Hematocrit (Bld) [Volume fraction] 38.8 % Normal 36.0-48.0 [facility] Comment on above: Performed By: #### C BC #### [facility] [address] [place] [address] Dr. Alexei Gonzales Hemoglobin (Bld) [Mass/Vol] 12.6 g/dL Normal 12.0-16.0 [facility] Comment on above: Performed By: #### C BC #### [facility] [address] [place] [address] Dr. Alexei Gonzales IG # 0.04 10e3/ul Critically high 0.00-0.03 [facility] Comment on above: Performed By: #### C BC #### [facility] [address] [place] [address] Dr. Alexei Gonzales IG % 0.3 % Normal 0.0-0.5 [facility] Comment on above: Performed By: #### C BC #### [facility] [address] [place] [address] Dr. Alexei Gonzales LYMPH # 3.4 103/ul Normal 1.2-3.8 [facility] Comment on above: Performed By: #### C BC #### [facility] [address] [place] [address] Dr. Alexei Gonzales Lymphocytes/100 WBC (Bld) 26.9 % Normal 20.5-60.0 [facility] Comment on above: Performed By: #### C BC #### [facility] [address] [place] [address] Dr. Alexei Gonzales MANUAL DIFF REQ NO Normal [facility] Comment on above: Performed By: #### C BC #### [facility] [address] [place] [address] Dr. Alexei Gonzales MCH (RBC) [Entitic mass] 27.3 pg Normal 26.7-34.0 [facility] Comment on above: Performed By: #### C BC #### [facility] [address] [place] [address] Dr. Alexei Gonzales MCHC (RBC) [Mass/Vol] 32.5 g/dL Normal 29.9-35.2 [facility] Comment on above: Performed By: #### C BC #### [facility] [address] [place] [address] Dr. Alexei Gonzales MCV (RBC) [Entitic vol] 84.2 fL Normal 81.0-99.0 [facility] Comment on above: Performed By: #### C BC #### [facility] [address] [place] [address] Dr. Alexei Gonzales MONO # 0.6 103/ul Normal 0.3-0.8 [facility] Comment on above: Performed By: #### C BC #### [facility] [address] [address] [address] Alexei Gonzales Monocytes/100 WBC (Bld) 5.1 % Normal 1.7-12.0 [facility] Comment on above: Performed By: #### C BC #### [facility] [address] [address] [address] Alexei Gonzales NEUT # 8.3 103/ul Critically high 1.4-6.5 [facility] Comment on above: Performed By: #### C BC #### [facility] [address] [place] [address] Dr. Alexei Gonzales Neutrophils/100 WBC (Bld) 65.9 % Normal 43.0-75.0 [facility] Comment on above: Performed By: #### C BC #### [facility] [address] [place] [address] Dr. Alexei Gonzales Platelet mean volume (Bld) [Entitic vol] 10.1 fL Normal 9.5-13.5 [facility] Comment on above: Performed By: #### C BC #### [facility] [address] [place] [address] Dr. Alexei Gonzales PLT 373 103/ul Normal 150-450 [facility] Comment on above: Performed By: #### C BC #### [facility] [address] [place] [address] Dr. Alexei Gonzales RBC 4.61 106/ul Normal 4.20-5.40 [facility] Comment on above: Performed By: #### C BC #### [facility] [address] [place] [address] Dr. Alexei Gonzlaes WBC 12.5 103/ul Critically high 4.0-11.0 [facility] Comment on above: Performed By: #### C BC #### [facility] [address] [place] [address] Dr. Alexei Gonzales PREG HCG QUALon 11-22-2021 , QUAL Negative Normal NEGATIVE [facility] Comment on above: Performed By: #### C BC #### [facility] [address] [place] [address] Dr. Alexei Gonzales PROF 14(COMP METB)on 022 Albumin [Mass/Vol] 3.3 g/dL Critically low 3.4-5.0 [facility] Comment on above: Performed By: #### C BC #### [facility] [address] [place] [address] Dr. Alexei Gonzales Albumin/Globulin [Mass ratio] 0.8 {ratio} Normal [facility] Comment on above: Performed By: #### C BC #### [facility] [address] [place] [address] Dr. Alexei Gonzlaes ALP [Catalytic activity/Vol] 89 U/L Normal 46-116 [facility] Comment on above: Performed By: #### C BC #### [facility] [address] [place] [address] Dr. Alexei Gonzales ALT [Catalytic activity/Vol] 43 U/L Normal 14-59 [facility] Comment on above: Performed By: #### C BC #### [facility] [address] [place] [address] Dr. Alexei Gonzales Anion gap [Moles/Vol] 13.4 mmol/L Normal [facility] Comment on above: Performed By: #### C BC #### [facility] [address] [place] [address] Dr. Alexei Gonzales AST [Catalytic activity/Vol] 17 U/L Normal 15-37 [facility] Comment on above: Performed By: #### C BC #### [facility] [address] [place] [address] Dr. Alexei Gonzales Bilirubin [Mass/Vol] 0.3 mg/dL Normal 0.2-1.0 [facility] Comment on above: Performed By: #### C BC #### [facility] [address] [place] [address] Dr. Alexei Gonzales Calcium [Mass/Vol] 8.9 mg/dL Normal 8.5-10.1 [facility] Comment on above: Performed By: #### C BC #### [facility] [address] [address] [address] Alexei Gonzales Chloride [Moles/Vol] 103 mmol/L Normal 98-107 [facility] Comment on above: Performed By: #### C BC #### [facility] [address] [address] [address] Alexei Gonzales CO2 [Moles/Vol] 26.4 mmol/L Normal 21.0-32.0 [facility] Comment on above: Performed By: #### C BC #### [facility] [address] [address] [address] Alexei Gonzales Creatinine [Mass/Vol] 0.91 mg/dL Normal 0.55-1.02 [facility] Comment on above: Performed By: #### C BC #### [facility] [address] [place] [address] Dr. Alexei Gonzales EGFR-AF [place]I >60 Normal >=60 [facility] Comment on above: Performed By: #### C BC #### [facility] [address] [place] [address] Dr. Alexei Gonzales EGFR-NON AF [place] >60 Normal >=60 [facility] Comment on above: Performed By: #### C BC #### [facility] [address] [place] [address] Dr. Alexei Gonzales Globulin (S) [Mass/Vol] 4.1 g/dL Normal [facility] Comment on above: Performed By: #### C BC #### [facility] [address] [place] [address] Dr. Alexei Gonzales Glucose [Mass/Vol] 151 mg/dL Critically high 74-106 [facility] Comment on above: Performed By: #### C BC #### [facility] [address] [place] [address] Dr. Alexei Goznales Potassium [Moles/Vol] 3.8 mmol/L Normal 3.5-5.1 [facility] Comment on above: Performed By: #### C BC #### [facility] [address] [place], [place] [address] Dr. Alexei Gonzales Protein [Mass/Vol] 7.4 g/dL Normal 6.4-8.2 [facility] Comment on above: Performed By: #### C BC #### [facility] [address] [place], [place] [address] Dr. Alexei Gonzales Sodium [Moles/Vol] 139 mmol/L Normal 136-145 [facility] Comment on above: Performed By: #### C BC #### [facility] [address] [place], [place] [address] Dr. Alexei Gonzlaes Urea nitrogen [Mass/Vol] 12.0 mg/dL Normal 7.0-18.0 [facility] Comment on above: Performed By: #### C BC #### [facility] [address] [place], [place] [address] Dr. Alexei Gonzales Urea nitrogen/Creatinin e [Mass ratio] 13.2 mg/mg Normal [facility] Comment on above: Performed By: #### C BC #### [facility] [address] [place], [place] [address] Dr. Alexei Gonzales TROPONIN, HIGH SENSITIVITYon 11-22-2021 HSTROP 5.0 pg/mL Normal 4.0-51.3 [facility] Comment on above: Result Comment: CUT- OFF POINTS HAVE BEEN ESTABLISHED BASED ON THE FOURTH UNIVERSAL DEFINITIONS OF MYOCARDIAL INFARCTION. THE UPPER REFERENCE LIMIT (URL) OF TROPONIN, DEFINED THE 99TH PERCENTILE OF cTnI DISTRIBUTION IN A REFERENCE POPULATION, HAS BEEN CONFIRMED THE DECISION THRESHOLD FOR [place] DIAGNOSIS. Performed By: #### C BC #### [facility] [address] [place], [place] [address] Dr. Alexei Gonzales XR CHEST 1 Von [...] by: LUDMILA WINKLER Date: 2021-11-21 23:31 Normal [facility] PAP ACOG PANEL 2: 30 to 65on 10-22-2021 . . Normal [facility] Comment on above: Result Comment: Perf ormed at: WB Performed By: #### [id number] #### [facility] [address] [place] [address] Dr. Alexei Gonzales Age Gdln ACOG Testing 30-65 Normal [facility] Comment on above: Performed By: #### [id number] #### [facility] [address] [address] [address] Alexei Gonzales DIAGNOSIS: Comment Normal [facility] Comment on above: Result Comment: NEGA TIVE FOR INTRAEPITHELIAL LESION OR MALIGNANCY. Performed at: WB Performed By: #### [id number] #### [facility] [address] [place] [address] Dr. Alexei Gonzales HPV Aptima Negative Normal Negative [facility] Comment on above: Result Comment: This nucleic acid amplification test detects fourteen high-risk HPV types (16,18,31,33,35,39,45,51,52,56,58,59,66,68) without differentiation. Performed at: =G Performed By: #### [id number] #### [facility] [address] [place] [address] Dr. Alexei Gonzales Methodology: Comment Normal [facility] Comment on above: Result Comment: This liquid based ThinPrep(R) pap test was screened with the use of an image guided system. Performed at: WB Performed By: #### [id number] #### [facility] [address] [place] [address] Dr. Alexei Gonzales Note: Comment Normal [facility] Comment on above: Result Comment: The Pap smear is a screening test designed to aid in the detection of premalignant and malignant conditions of the uterine cervix. It is not a diagnostic procedure and should not be used as the sole means of detecting cervical cancer. Both false-positive and false-negative reports do occur. . Performed at: WB Performed By: #### [id number] #### [facility] [address] [address] [address] Alexei Gonzales Performed by: Comment Normal [facility] Comment on above: Result Comment: Elis Oshea, [employer] (ASCP) Performed at: WB Performed By: #### [id number] #### [facility] [address] [place], [place] [address] Dr. Alexei Gonzales Specimen adequacy: Comment Normal [facility] Comment on above: Result Comment: Sati sfactory for evaluation. Endocervical and/or squamous metaplastic cells (endocervical component) are present. Performed at: WB Performed By: #### [id number] #### [facility] [address] [address] [address] Alexei Gonzales Vital Signs Date Time Vital Sign Value Performing Clinician Facility 04-08-2022 14:15-0500 Body height 162.56 cm Luciana Flores Other [facility] Other 04-08-2022 14:15-0500 Body mass index (BMI) [Ratio] 50.46 kg/m2 Luciana Flores Other [facility] Other 04-08-2022 14:15-0500 Body temperature 98.4 [degF] Luciana Flores Other [facility] Other 04-08-2022 14:15-0500 Body weight 133.36 kg Luciana Flores Other [facility] Other 04-08-2022 14:15-0500 Respiratory rate 18 /min Luciana Flores Other [employer] Other 04-08-2022 14:15-0500 SaO2% (BldA) [Mass fraction] 99 % Luciana Flores Other [employer] Other 04-04-2022 09:23-0500 Blood Pressure Location Audi ANGELA [facility] 04-04-2022 09:23-0500 Diastolic blood pressure 89 mm[Hg] Audi ANGELA [facility] 04-04-2022 09:23-0500 Heart rate 75 /min Audi ANGELA [facility] 04-04-2022 09:23-0500 Respiratory rate 16 /min Audi ANGELA [facility] 04-04-2022 09:23-0500 Systolic blood pressure 136 mm[Hg] Audi ANGELA [facility] 12-30-2021 12:56-0400 Body height 162.6 cm Monica Torres MD Work Phone: [facility] 12-30-2021 12:56-0400 Body weight 136.08 kg Monica Torres MD Work Phone: [facility] 12-30-2021 12:56-0400 Diastolic blood pressure 72 mm[Hg] Monica Torres MD Work Phone: [facility] 12-30-2021 12:56-0400 Systolic blood pressure 116 mm[Hg] Monica Torres MD Work Phone: [facility] 08-27-2021 17:50-0400 Body height 162.56 cm Luciana Flores Other [employer] Other 08-27-2021 17:50-0400 Body mass index (BMI) [Ratio] 49.77 kg/m2 Luciana Flores Other [employer] Other 08-27-2021 17:50-0400 Body temperature 97.7 [degF] Luciana Florse Other [employer] Other 08-27-2021 17:50-0400 Body weight 131.54 kg Luciana Flores Other [employer] Other 08-27-2021 17:50-0400 Respiratory rate 18 /min Luciana Flores Other [employer] Other 08-27-2021 17:50-0400 SaO2% (BldA) [Mass fraction] 98 % Luciana Flores Other [employer] Other Encounters Encounter Date Encounter Type Care Provider Facility Start: 04-26-2024 ambulatory Audi Brannoni ty:NIRAJ Duran Start: 09-07-2023 End: 09-07-2023 ambulatory URSULA AICHHOLZ Not Available Start: 09-04-2023 End: 09-04-2023 ambulatory ANAM KIRKLAND Not Available Start: 08-29-2023 End: 08-29-2023 ambulatory NON STAFF Facility:[facility] Start: 08-29-2023 End: 08-29-2023 ambulatory PHYSICIAN NO [facility] Work Phone: Start: 08-29-2023 End: 08-29-2023 Departed Referred PHYSICIAN NO [facility] Start: 08-21-2023 End: 08-22-2023 ambulatory ANAM KIRKLAND Not Available Start: 08-01-2023 End: 08-01-2023 ambulatory URSULA AICHHOLZ Not Available Start: 07-12-2023 End: 07-12-2023 ambulatory ADA SELF Not Available Start: 04-21-2023 End: 04-22-2023 ambulatory Audi ANGELA Facility:NIR[facility] Duran Start: 09-20-2022 End: 09-20-2022 ambulatory TELEMARKETING SUPERVISOR URSULA AICHHOLZ Facility:[facility] Start: 08-31-2022 End: 08-31-2022 ambulatory TELEMARKETING SUPERVISOR URSULA AICHHOLZ Facility:[facility] Start: 05-13-2022 End: 05-13-2022 ambulatory TELEMARKETING SUPERVISOR URSULA AICHHOLZ Facility:[facility] Start: 04-18-2022 End: 04-18-2022 ambulatory TELEMARKETING SUPERVISOR URSULA ERMIAS Facility:[facility] Start: 04-15-2022 End: 04-16-2022 ambulatory TELEMARKETING SUPERVISOR URSULA MONSON Facility:[facility] Start: 04-08-2022 End: 04-08-2022 ambulatory Luciana Flores Other [employer] Other Start: 04-08-2022 Office outpatient vi sit 25 minutes Luciana Flores [facility] Start: 04-04-2022 End: 04-04-2022 Patient encounter procedure Audi ANGELA [facility] Start: 01-18-2022 Telephone encounter Lacey hunter MD Work Phone: [facility] Comment on above: Appointment Start: 01-17-2022 End: 01-18-2022 ambulatory TELEMARKETING SUPERVISOR URSULA MONSON Facility:[facility] Start: 01-14-2022 End: 01-14-2022 ambulatory Monica Torres MD Work Phone: [facility] Comment on above: info Primary amenorrhea ( Primary Dx) Start: 01-14-2022 E-mail encounter fro m caregiver Monica Torres MD Work Phone: [facility] Start: 01-14-2022 End: 01-14-2022 Telemedicine consultation with patient Monica Torres MD Work Phone: [facility] Start: 12-30-2021 End: 12-31-2021 ambulatory MONICA TORRES Facility:[facility] Start: 12-30-2021 End: 12-30-2021 Patient encounter procedure Monica Torres MD Work Phone: [facility] Comment on above: Primary amenorrhea ( Primary Dx) Start: 12-21-2021 End: 12-22-2021 ambulatory TELEMARKETING SUPERVISOR URSULA MONSON Facility:[facility] Start: 11-30-2021 End: 12-01-2021 ambulatory PACO URSULA POPEJYOTIEddie Facility:[facility] Start: 11-22-2021 End: 11-22-[address] KIRTI CROCKETT Facility:[facility] Start: 10-19-2021 End: 10-19-[address] IMTIAZ LONGO . Facility:[facility] Start: 08-27-2021 End: 08-27-2021 ambulatory Luciana Flores Other [employer] Other Start: 08-27-2021 Office outpatient vi sit 15 minutes Luciana Flores [facility] Procedures Date Procedure Procedure Detail Performing Clinician Start: 12-30-2021 Antibody screen MONICA TORRES Comment on above: Order Comment: Speci men Type: BLOOD SPECIMENOrdering Facility: [facility] Address: [address] [place] [address] Performed By: #### T SCR ####CC MAIN BLOOD BANKCLIA [id number] [address] Plan of Treatment Date Care Activity Detail Author Start: 01-06-2022 Influenza vaccination INFLUENZA (#1) [facility] Start: 12-30-2021 End: 03-01-2022 25-hydroxyvitamin D3 [Mass/volume] in Serum or Plasma [facility] Work Phone: Comment on above: Expected: 12/30/2021 , Expires: 03/01/2022 Start: 12-30-2021 End: 03-01-2022 Estradiol (E2) [Mass/volume] in Serum or Plasma [facility] Work Phone: Comment on above: Expected: 12/30/2021 , Expires: 03/01/2022 Start: 12-30-2021 End: 03-01-2022 Follitropin [Units/volume] in Serum or Plasma [facility] Work Phone: Comment on above: Expected: 12/30/2021 , Expires: 03/01/2022 Start: 12-30-2021 End: 03-01-2022 Hemoglobin A1c in Blood [facility] Work Phone: Comment on above: Expected: 12/30/2021 , Expires: 03/01/2022 Start: 12-30-2021 End: 03-01-2022 Prolactin [Mass/volume] in Serum or Plasma [facility] Work Phone: Comment on above: Expected: 12/30/2021 , Expires: 03/01/2022 Start: 12-30-2021 End: 03-01-2022 RUBELLA IGG AB [facility] Work Phone: Comment on above: Expected: 12/30/2021 , Expires: 03/01/2022 Start: 12-30-2021 End: 03-01-2022 Thyrotropin [Units/volume] in Serum or Plasma [facility] Work Phone: Comment on above: Expected: 12/30/2021 , Expires: 03/01/2022 Start: 12-30-2021 End: 03-01-2022 TYPE + SCREEN [facility] Work Phone: Comment on above: Expected: 12/30/2021 , Expires: 03/01/2022 Start: 12-30-2021 End: 03-01-2022 VARICELLA ZOSTER IGG [facility] Work Phone: Comment on above: Expected: 12/30/2021 , Expires: 03/01/2022 Start: 01-30-2021 COVID-19 VACCINE (3 - Booster for Pfizer series) COVID-19 VACCINE (3 - Booster for Pfizer series) [facility] Start: 2019 HPV TESTING HPV TESTING [facility] Start: 2010 PAP TESTING PAP TESTING [facility] Start: 02-23-2008 Urine microalbumin profile DTAP,TDAP,TD (1 - Tdap) [facility] Start: 2007 HEPATITIS C SCREENING HEPATITIS C SC REENING [facility] Start: 2007 HIV SCREENING HIV SCREENING [facility] Start: 2001 Adult depression screening assessment DEPRESSION SCREENING [facility] Start: 1989 HEPATITIS B (1 of 3 - 3-dose series) HEPATITIS B (1 of 3 - 3-dose series) [facility] Immunizations Immunization Date Immunization Notes Care Provider Fa toryty 08-30-2020 SARS-CoV-2 (COVID-19 ) mRNA BNT-162b2 ankitsuad Audi ANGELA [facility] Comment on above: Result Comment: 2021: TPVAL 08-07-2020 SARS-CoV-2 (COVID-19 ) mRNA BNT-162b2 ankitx Audi ANGELA [facility] Comment on above: Result Comment: 2021: TPVAL 09-21-2001 measles, mumps and rubella virus vaccine Audi ANGELA [facility] Payers Date Payer Category Payer Self-pay [id number] 2023 Unknown [id number] 2022 Unknown [id number] 2019 Unknown KEVIN AN PPO [id number] 2019-Present [phone] [address] [place] [address] PPO [id number] 1989 Unknown [id number] 2.16.840.1.358439.3.579.2. 593 1989 Unknown [id number] 2.16.840.1.096972.3.579.2. 593 1989 Unknown [id number] 2.16.840.1.359368.3.579.2. 593 1989 Unknown [id number] 2.16.840.1.818105.3.579.2. 593 1989 Unknown [id number] 2.16.840.1.399118.3.579.2. 593 1989 Unknown [id number] 2.16.840.1.117699.3.579.2. 593 1989 Unknown [id number] 2.16.840.1.883922.3.579.2. 593 1989 Unknown [id number] 2.16.840.1.234344.3.579.2. 593 1989 Unknown [id number] 2.16.840.1.910744.3.579.2. 593 1989 Unknown [id number] 2.16.840.1.457553.3.579.2. 593 1989 Unknown [id number] 2.16.840.1.719820.3.579.2. 727 1989 Unknown [id number] 2.16.840.1.289109.3.579.2. 727 1989 Unknown [id number] 2.16.840.1.784551.3.579.2. 1259 1989 Unknown [id number] 2.16.840.1.940421.3.579.2. 1259 1989 Unknown [id number] 2.16.840.1.983799.3.579.2. 1259 1989 Unknown [id number] 2.16.840.1.950214.3.579.2. 1259 1989 Unknown [id number] 2.16.840.1.780836.3.579.2. 1259 1959 [facility] [id number] 2.16.840.1.637906.19 Unknown [id number] 2.16.840.1.562299.3.579.2. 531 Social History Date Type Detail Facility Unknown if ever smoked [facility] Other Sex Assigned At [facility] Start: 12-30-2021 End: 04-04-2022 Tobacco smoking status PRIS Ex-smoker [facility] History of tobacco use Current smoker [facility] History of tobacco use Cigarette Smoker [facility] Start: 12-30-2021 Tobacco use and exposure User of smokeless tobacco [facility] Start: 12-30-2021 Tobacco Comment [facility] Start: 1989 Sex Assigned At Not on file [facility] Start: 12-20-2021 End: 12-30-2021 Exposure to SARS-CoV-2 (event) Not sure [facility] Start: 1989 Sex Assigned At Female F [facility] Functional Status Date Assessment Result Facility 04-04-2022 Functional Status N/A [facility] Clinical Notes 08-27-2021 to 04-08-2022 Note Date [...] treatment plan. Patient left in stable condition [facility] Other 11-28-2022 Hospital Discharge instructions Patient Education [...] Follow these instructions at home: Medicines Take ihqa-uci-lkaqchx and prescription medicines only as told by [...] or the blood stops without treatment. Take bjbv-uly-pwxdesc and prescription medicines only as told by your health care provider. Drink enough fluid to keep your urine clear or pale yellow. This information is not intended to replace advice given to you by your health care provider. Make sure you discuss any questions you have with your health care provider. Document Released: 04/24/2006 Document Revised: 09/18/2019 Document Reviewed: 05/27/2017 [employer] Patient Education 2020 [employer]. Follow Up Care 03/01/2022 10:00:52 With:ALESSANDRO EGAN, Audi Felton, URL Address: [facility] [address], [place] [id number]- When: Unknown Comments:Schedule cysto, CTU [facility] 09-13-2022 Miscellaneous Notes* Telephone Encounter - Luciana Dennis - 01/18/2022 10:29 AM EDT Lacey Brown MD P i A10 Scheduling Pool New PCOS patient for clinic Call to patient, no answer. Left voicemail for patient to call the office so that we may assist with scheduling and appointmentwith Dr. Kwan for PCOS clinic. Luciana Dennis [facility]22 NoteHNO ID: [id number] Author: Monica Torres MD Service: ? Author [...] begin metformin AND vit D referred to [facility] I spent a total of 20 minutes via virtual visit which included preparing to see the patient, ztsb-sy-skqd patient care, completing clinical documentation, obtaining and/or reviewing separately obtained history, counseling and educating the patient/family/caregiver, and ordering medications, tests, or procedures. Medical Decision Making: Problems: Low: Stable chronic illness Data: Unique test result(s) reviewed: 3+ Medical Decision Making Level: 3 - Low Monica Torres MD .[facility]09-09-2022 History of Present illness Narrative* Monica Torres [...] begin metformin & vit D referred to [facility] I spent a total of 20 minutes via virtual visit which included preparing to see the patient, biqa-an-idvc patient care, completing clinical documentation, obtaining and/or reviewing separately obtained history, counseling and educating the patient/family/caregiver, and ordering medications, tests, or procedures. Medical Decision Making: Problems: Low: Stable chronic illness Data: Unique test result(s) reviewed: 3+ Medical Decision Making Level: 3 - Low Mnoica Torres MD . documented in [facility]08-[facility]-2022 NoteHNO ID: [id number] Author: Monica Torres MD Service: ? Author [...] which included preparing to see the patient, ncft-rx-bqxg patient care, completing clinical documentation, obtaining and/or reviewing separately obtained history, counseling and educating the patient/family/caregiver, and ordering medications, tests, or procedures. Monica Torres MD [facility] History of Present illness Narrative* Monica [...] which included preparing to see the patient, iuvg-eq-tbfd patient care, completing clinical documentation, obtaining and/or reviewing separately obtained history, counseling and educating the patient/family/caregiver, and ordering medications, tests, or procedures. Monica Torres MD letter to Dr. Longo documented in [facility]Mer[facility]04-[facility]-2022 Evaluation note* Encounter Date Diagnosis Assessment Notes Treatment Notes Treatment Clinical Notes Aug, Contact with and (suspected) exposure to other viral communicable diseases (ICD-10 - Z20.828) Aug, Viral URI with cough (ICD-10 - J06.9) Advised patient that Influenza A/B, rapid COVID antigen, and Strep test were negative. Discussed diagnosis with patient. Will send in rx of [place] and Flonase to use as directed. Encouraged [...] Patient care instructions given in writting by [facility][NOTE 3] Care At Home document [facility] Other Evaluation + Plan note No data available for this section [facility] evaluation note* Diagnosis Primary amenorrhea- Primary Absence of menstruation documented [facility]* Diagnosis Primary amenorrhea- Primary Absence of menstruation documented in this encounter [facility] noteNo assessment information availablePrem[facility] Work Phone: History general Narrative - Reported* Type Description Date Surgical History wisdom teeth [facility] Other Progress note No data available for this section [facility] Summary Purpose Family History No Family History Records FoundNo Family History Records FoundNo Family History Records FoundNo Family History Records FoundNo Family History Records Found Advance Directives No Advanced Directives Records Found Advance Directive Response Recorded Date/ Time Advance Directives No August 28, 021 5:22pm Additional Source Comments REASON FOR VISIT (unrecogniz [...] or prosecute any alcohol or drug abuse patient.[facility] HospitalIn the event this information is protected by the Federal Confidentiality of Alcohol and Drug Abuse Patient Records regulations: The Federal rules restrict any use of the information to criminally investigate or prosecute any alcohol or drug abuse patient.[facility] HospitalIn the event this information is protected by the Federal Confidentiality of Alcohol and Drug Abuse Patient Records regulations: The Federal rules restrict any use of the information to criminally investigate or prosecute any alcohol or drug abuse patient.[facility] HospitalIn the event this information is protected by the Federal Confidentiality of Alcohol and Drug Abuse Patient Records regulations: The Federal rules restrict any use of the information to criminally investigate or prosecute any alcohol or drug abuse patient.[facility] Care Teams (unrecognized sec tion and content) [employer] Senior Sergeant Relationship Specialty Start [place] [address] Referring Obstetrics 11/16/21 [employer] Senior Sergeant Relationship Specialty [place] [address] Referring Obstetrics 11/16/21 [employer] Senior Sergeant Relationship Specialty Start [place] [address] Referring Obstetrics 11/16/21 [employer] Senior Sergeant Relationship Specialty Start [place] [address] Referring Obstetrics 11/16/21 Team Status: Active Member Role Status Dates PHYSICIAN NO FAMILY Primary Care Provider Active Team Status: Inactive Member Role Status Dates PHYSICIAN NO FAMILY Primary Care Provider Active Start: August 29, 2023 End: August 29, 2023 NON STAFF Attending Provider Active Start: Ap [facility] 2023 End: August 29, 2023 INFORMATION SOURCE (unrecogn ized section and content) DATE CREATED AUTHOR 02/06/2022 [facility] DATE CREATED AUTHOR AUTHOR'S ORGANIZ ATION 09/21/2022 [facility] DATE CREATED AUTHOR AUTHOR'S ORGANIZ ATION 04/23/2023 [facility] DATE CREATED AUTHOR AUTHOR'S ORGANIZ ATION 09/01/2023 [facility] DATE CREATED AUTHOR AUTHOR'S SARABJIT DE SANTIAGO 09/09/2023 [facility] d[facility] Specialists EPIC Goals (unrecognized section and content) Goals may be documented in a n alternate section FOR RECORDS PERTAINING TO PATIENTS WHO ARE [...] BE BASED ON THE PRIMARY CLINICAL RECORDS. [employer] provides no warranty or guarantee of the accuracy or completeness of information in this document.
== END 2023-09-16 20:01 | disposition home or self-care (01) ==
LOC: SLEEP 09-18 07:38
PROVIDERS: PCP Nurse Practitioner; Visit Provider Nurse Practitioner
DX: G47.33 Obstructive sleep apnea (adult) (pediatric) (principal)
CPT/HCPCS: 95810

== ENCOUNTER 2023-10-16 22:01 | Outpatient (OUT) | payer BC, SELFPAY | END 2023-10-16 22:02 | disposition home or self-care (01) | LOC: SLEEP 22:02 | PROVIDERS: PCP Nurse Practitioner; Visit Provider Nurse Practitioner | DX: G47.33 Obstructive sleep apnea (adult) (pediatric) (principal) | CPT/HCPCS: 95811 ==

== ENCOUNTER 2024-02-19 14:16 | Emergency (ER) | payer BC, SELFPAY ==
[2024-02-19 14:19] VITALS: BP 143/74; PULSE 98; TEMP 36.7; O2SAT 98; BMI 48.1
--- OUTSIDE RECORDS SUMMARY | 2024-02-19 14:25 | XMS_ITS | CCD ---
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 By: #### C MP #### [facility] [address] [place] [address] Dr. Alexei Gonzales CO2 [Moles/Vol] 26.4 mmol/L Normal 21.0-32.0 [facility] Comment on above: Performed By: #### C MP #### [facility] [address] [place] [address] Dr. Alexei Gonzales Creatinine [Mass/Vol] 0.98 mg/dL Normal 0.55-1.02 [facility] Comment on above: Performed By: #### C MP #### [facility] [address] [place] [address] Dr. Alexei Gonzales EGFR-AF GERMAN >60 Normal >=60 [facility] Comment on above: Performed By: #### C MP #### [facility] [address] [place] [address] Dr. Alexei Gonzales EGFR-NON AF GERMAN >60 Normal >=60 [facility] Comment on above: Performed By: #### C MP #### [facility] [address] [place] [address] Dr. Alexei Gonzales Globulin (S) [Mass/Vol] 4.3 g/dL Normal [facility] Comment on above: Performed By: #### C MP #### [facility] [address] [place] [address] Dr. Alexei Gonzales Glucose [Mass/Vol] 125 mg/dL Critically high 74-106 [facility] Comment on above: Performed By: #### C MP #### [facility] [address] [address] [address] Alexei Gonzales Potassium [Moles/Vol] 3.6 mmol/L Normal 3.5-5.1 [facility] Comment on above: Performed By: #### C MP #### [facility] [address] [address] [address] Alexei Gonzales Protein [Mass/Vol] 7.9 g/dL Normal 6.4-8.2 [facility] Comment on above: Performed By: #### C MP #### [facility] [address] [address] [address] Alexei Gonzales Sodium [Moles/Vol] 134 mmol/L Critically low 136-145 [facility] Comment on above: Performed By: #### C MP #### [facility] [address] [place] [address] Dr. Alexei Gonzales Urea nitrogen [Mass/Vol] 12.0 mg/dL Normal 7.0-18.0 [facility] Comment on above: Performed By: #### C MP #### [facility] [address] [address] [address] Alexei Gonzales Urea nitrogen/Creatinin e [Mass ratio] 12.2 mg/mg Normal [facility] Comment on above: Performed By: #### C MP #### [facility] [address] [place] [address] Dr. Alexei Gonzales STREPT SCREENon 05-13-2022 STREP SCREEN A Negative Normal NEGATIVE [facility] Comment on above: Performed By: #### C VDAGS #### [facility] [address] [place] [address] ABD/PELV WO W [...] BORIS OSHEA Date: 2022-04-15 11:19 Normal [facility] COVID/FLU/RSV RT-PCRon 04-08 SARS-CoV-2 (COVID-19) RNA CRISTEL+probe Ql (Unsp spec) Positive [facility] Other COVID/FLU/RSV RT-PCR Negative [facility] Telephone (REITW) -- RAMIN DANIELLE ([id number]) 1990 F Date Time Provider Department 01/25/22 TAIWO TORRES During your visit today, we recorded the following information about you: Erica Oscar RN 01/25/2022 9:52 AM Signed Routing to Non [facility] ivf Pool to refuse provera refill Just filled 1 weeks ago Erica Oscar RN January 25, 2022 9:52 AM Dilcia Dawn APRN.TOOL OR DIE DRAWING CHECKER 01/25/2022 10:09 AM Signed Patient's request for [...] Encounter Status:Closed by DILCIA DAWN on 01/25/22 [facility] 01-18-2022 [facility] Telephone (Q) -- RAMIN DANIELLE ([id number]) 1990 F Date Time Provider Department 01/18/22 SISSY TEMPLE Alan During your visit today, we recorded the following information about you: Luciana Dennis 01/18/2022 10:31 AM Signed Sissy Brown MD P i A10 Scheduling Pool [...] Status:Closed by LUCIANA DENNIS on 01/18/22 Normal [facility] XR KUB 1 VIEWon 01-17-2022 XR KUB [...] visible urinary tract calculi. Electronically authenticated by: NIKOLAS IQBAL Date: 2022-01-17 13:05 Normal [facility] 25(OH)D3 [facility] 25-hydroxyvitamin D3 [Mass/Vol] 23.4 ng/mL Low 31.0-80.0 [facility] Comment on above: Order Comment: Speci men Type: BLOOD SPECIMEN Ordering Facility: [facility] Address: [address] [place] [address] [place] [address] Result Comment: Clas sification of 25 [place] Vitamin D status: Deficiency/Insufficiency: < or = 30 ng/ml. Sufficiency/Optimal Levels: 31-80 ng/mL Toxicity: > 100 ng/mL. Test performed by chemiluminescent immunoassay. Performed By: #### V ZVG2, 1989-, XOCHITL #### [facility] CLIA [id number] [address] [place] [address] [place] CNOVon 12-30-2021 CNOV Office Visit (REISO) -- RAMIN DANIELLE ([id number]) 1990 F Date Time Provider Department 12/30/21 1:00 PM TAIWO TORRES During your visit today, we recorded the following information about you: Blood pressure Weight Height Last Period 116/72 136.1 kg 1.626 m 06/17/21 Taiwo Torres MD 12/30/2021 1:57 PM Signed Consultation [...] which included preparing to see the patient, [id number] patient care, completing clinical documentation, obtaining and/or reviewing separately obtained history, counseling and educating the patient/family/caregiver, and ordering medications, tests, or procedures. Taiwo Torres MD letter to Dr. Longo Referring Provider: BRIANNA TREJO [[id number]] Allergies As of Date: 12/30/2021 Noted Allergy Reaction STRAWBERRIES 12/30/2021 4 - Hives Date Reviewed: 12/30/2021 Reviewed by: Cinthia Price Ma - Fully Assessed Reason for Visit: New Patient [172] Infertility [285] Primary Visit Diagnosis:Primary amenorrhea [N91.0] Order(s):TSH BLD [SQTSH] Order #: [id number] FUTURE PROLACTIN BLD [SQPROL] Order #: [id number] FUTURE RUBELLA IGG AB [SQRUBQNT] Order #: [id number] FUTURE VARICELLA ZOSTER IGG [SQVZVG] Order #: [id number] FUTURE VITAMIN D 25 HYDROXY [SQVITD] Order #: [id number] FUTURE TYPE + SCREEN [SQTSCR] Order #: [id number] FUTURE FSH BLD [SQFSH] Order #: [id number] FUTURE ESTRADIOL-17B BLD [SQE2] Order #: [id number] FUTURE HGB A1C [RZQWG9L] Order #: [id number] FUTURE Prescriptions as of 12/30/2021 - PNV no.95/ferrous fum/folic ac ( ORAL) Take by mouth. Problem List As Of Date: 12/30/2021 (None) Encounter Status:Closed by TAIWO TORRES on 12/30/21 Normal [facility]adiol [facility] E2 [Mass/Vol] 60 pg/mL Normal [facility] Comment on above: Order Comment: Speci men Type: BLOOD SPECIMEN Ordering Facility: [facility] Address: [address] [place] [address] Result Comment: This test is not suitable [...] 3243 pg/mL Second trimester : 1561 to 84192 pg/mL Third trimester : 8285 to >41042 pg/mL Post-menopausal Estradiol reference range: < 41 pg/mL Reference: 1. Estradiol - E2 (Estradiol III) [package insert V 3.0 Maltese]. [facility], [place], [place], October 2015. Performed By: #### 3 016-3, 47438-1, 2243-4, 2842-3 #### [facility] CLIA [id number] [address] [place] [address] [place] FSH SerPl-aCncon 12-30-2021 Follitropin Qn 6.4 m[IU]/mL Normal See comment [facility] Comment on above: Order Comment: Speci men Type: BLOOD SPECIMEN Ordering Facility: [facility] Address: [address] [place] [address] Result Comment: Refe rence range: Follicular: 3.5-12.5 mIU/mL Midcycle: 4.7-21.5 mIU/mL Luteal: 1.7-7.7 mIU/mL Post Lanny: 25.8-134.8 mIU/mL Performed By: #### 3 016-3, 05672-3, 3-4, 2-3 #### [facility] CLIA [id number] [address] [place] [address] OF [place] HbA1c (Bld)on 12-30-2021 Average glucose Estimated from glycated hemoglobin (Bld) [Mass/Vol] 120 mg/dL Normal [facility] Comment on above: Order Comment: Speci men Type: BLOOD SPECIMEN Ordering Facility: [facility] Address: [address] [place] [address] Result Comment: eAG: (Estimated average glucose) is a calculated value from HgbA1c and is player services representative of the average blood glucose level in the last 2-3 month period. Performed By: #### 5 5454-3 #### [facility] CLIA [id number] [address] [place] [address] [place] HbA1c (Bld) [Mass fraction] 5.8 % High 4.3-5.6 [facility] Comment on above: Order Comment: [place] putnam Type: BLOOD SPECIMEN Ordering Facility: [facility] Address: [address] [place] [address] Result Comment: [place] Diabetes Association guidelines indicate that patients with HgbA1c in the range 5.7-6.4% are at increased risk for development of diabetes, and intervention by lifestyle modification may be beneficial. HgbA1c greater or equal to 6.5% is considered diagnostic of diabetes. Performed By: #### 5 5454-3 #### [facility] CLIA [id number] [address] [place] [address] [place] Prolactin SerPl-mCncon 12-30 Prolactin [Mass/Vol] 10.3 ng/mL Normal 4.5-26.8 [facility] Comment on above: Order Comment: [place] putnam Type: BLOOD SPECIMEN Ordering Facility: [facility] Address: [address] [place] [address] Result Comment: Prol actin test is performed using the [facility] Electrochemiluminescence Immunoassay method. Results obtained with different methods or kits cannot be used interchangeably. Performed By: #### 3 016-3, 08039-3, 2243-4, 2842-3 #### [facility] CLIA [id number] [address] [place] [address] [place] RUBELLA IGG ABon 12-30-2021 RUBELLA IGG AB, QUAL Positive Normal Positive [facility] Comment on above: Order Comment: [place] putnam Type: BLOOD SPECIMEN Ordering Facility: [facility] Address: [address] [place] [address] Result Comment: The result suggests recent or past exposure to Rubella virus or history of Rubella vaccination. Positive result may also be seen due to presence of passively-transferred antibodies. Please correlate with patient's history. Performed By: #### V ZVG2, 1989-3, RUBIGG #### [facility] CLIA [id number] [address] [place] [address] [place] TSH SerPl-aCncon 12-30-2021 TSH Qn 2.730 m[IU]/L Normal 0.270-4.200 [facility] Comment on above: Order Comment: Speci men Type: BLOOD SPECIMEN Ordering Facility: [facility] Address: [address] [place] [address] Result Comment: If t he patient is , TSH reference range varies by gestational period: First Trimester (weeks 9-12): 0.180-2.990 mIU/L Second Trimester: 0.110-3.980 mIU/L Third Trimester: 0.480-4.710 mIU/L Soham Joaquin et al. A Practical Approach for the Verifications and Determination of Site- and Trimester-Specific Reference Intervals for Thyroid Function tests in . Thyroid, 2019:29:3:412-420. Tavares Mitchell, et al. 2017 Guidelines of the [place] Thyroid Association for the Diagnosis and Management of Thyroid Disease during and the . Thyroid, 2017:27:3:315-389. Performed By: #### 3 016-3, 91256-4, 2243-4, 2842-3 #### [facility] CLIA [id number] [address] [place] [address] [place] TYPE + SCREENon 12-30-2021 HISTORICAL AB SCR STATUS Negative Normal [facility] Comment on above: Order Comment: Speci men Type: BLOOD SPECIMENOrdering Facility: [facility] Address: [address] [place] [address] Performed By: #### T SCR ####[facility]ANKCLIA [id number] [address] OF [place] TYPE AND SCREEN EXPIRATION 01/02/2022 23:59 Normal [facility] Comment on above: Order Comment: Speci men Type: BLOOD SPECIMENOrdering Facility: [facility] Address: [address] [place] [address] Performed By: #### T SCR ####[facility] BLO[facility] BANKCLIA [id number] [address] OF [place] VARICELLA ZOSTER IGGon 12-30 VARICELLA ZOSTER IGG, QUAL Positive Normal Positive [facility] Comment on above: Order Comment: Speci men Type: BLOOD SPECIMEN Ordering Facility: [facility] Address: [address] [place] [address] Result Comment: The result suggests recent or past exposure to Varicella-Zoster virus or chickenpox vaccination or zoster vaccination. Positive result may also be seen due to presence of passively-transferred antibodies. Please correlate with patient's history. Performed By: #### V JUAN, 1989-07, XOCHITL #### [facility] CLIA [id number] [address] [place] [address] CULTURE URINEon 12-21-2021 CULTURE URINE Culture Observations : LIGHT GROWTH OF MIXED GENITAL ANTONIO. NO POTENTIAL PATHOGENS SEEN. Normal [facility] Comment on above: Performed By: #### C VDAGS #### [facility] [address] [place] [address] Dr. Alexei Gonzales UA RANDOM W/MICROSCOPICon BACTERIA TRACE Abnormal NONE SEEN [facility] Comment on above: Performed By: #### C BC #### [facility] [address] [place] [address] Dr. Alexei Gonzales Bilirubin Ql (U) Negative Normal NEGATIVE [facility] Comment on above: Performed By: #### C BC #### [facility] [address] [place] [address] Dr. Alexei Gonzales CAST NONE SEEN Normal NONE SEEN [facility] Comment on above: Performed By: #### C BC #### [facility] [address] [place] [address] Dr. Alexei Gonzales Clarity (U) CLEAR Normal CLEAR [facility] Comment on above: Performed By: #### C BC #### [facility] [address] [place] [address] Dr. Alexei Gonzales Color (U) YELLOW Normal YELLOW [facility] Comment on above: Performed By: #### C BC #### [facility] [address] [address] [address] Alexei Gonzales Crystals LM Nom (Urine sed) NONE SEEN Normal NONE SEEN [facility] Comment on above: Performed By: #### C BC #### [facility] [address] [place] [address] Dr. Alexei Gonzales Epithelial cells LM Ql (Urine sed) FEW Abnormal NONE SEEN /RARE [facility] Comment on above: Performed By: #### C BC #### [facility] [address] [address] [address] Alexei Gonzales Glucose Ql (U) Negative Normal NEGATIVE [facility] Comment on above: Performed By: #### C BC #### [facility] [address] [place] [address] Dr. Alexei Gonzales Hemoglobin Ql (U) TRACE-LYSED Abnormal NEGATIVE [facility] Comment on above: Performed By: #### C BC #### [facility] [address] [place] [address] Dr. Alexei Gonzales Ketones Ql (U) Negative Normal NEGATIVE [facility] Comment on above: Performed By: #### C BC #### [facility] [address] [place] [address] Dr. Alexei Gonzales LEUKOCYTES Negative Normal NEGATIVE [facility] Comment on above: Performed By: #### C BC #### [facility] [address] [place] [address] Dr. Alexei Gonzales MUCOUS NONE SEEN Normal NONE SEEN [facility] Comment on above: Performed By: #### C BC #### [facility] [address] [place] [address] Dr. Alexei Gonzales Nitrite Ql (U) Negative Normal NEGATIVE [facility] Comment on above: Performed By: #### C BC #### [facility] [address] [place] [address] Dr. Alexei Gonzales pH (U) 6.0 [pH] Normal 5-9 [facility] Comment on above: Performed By: #### C BC #### [facility] [address] [place] [address] Dr. Alexei Gonzales RBC 2-5 Abnormal 0-2 [facility] Comment on above: Performed By: #### C BC #### [facility] [address] [place] [address] Dr. Alexei Gonzales SPEC GRAVITY >=1.030 Abnormal 1.005-<=1.0 25 [facility] Comment on above: Performed By: #### C BC #### [facility] [address] [place] [address] Dr. Alexei Gonzales UA PROTEIN Negative Normal NEGATIVE/ TRACE [facility] Comment on above: Performed By: #### C BC #### [facility] [address] [place] [address] Dr. Alexei Gonzales Urobilinogen Qn (U) 0.2 {Albin'U}/dL Normal 0.2 - 1.0 [facility] Comment on above: Performed By: #### C BC #### [facility] [address] [place] [address] Dr. Alexei Gonzales WBC 0-2 Abnormal NONE SEEN [facility] Comment on above: Performed By: #### C BC #### [facility] [address] [place] [address] Dr. Alexei Gonzales CBC AUTO DIFFon 11-30-2021 BASO # 0.1 103/ul Normal 0.0-0.1 [facility] Comment on above: Performed By: #### C VDAGS #### [facility] [address] [place] [address] Dr. Alexei Gonzales Basophils/100 WBC (Bld) 0.4 % Normal 0.2-2.0 [facility] Comment on above: Performed By: #### C VDAGS #### [facility] [address] [place] [address] Dr. Alexei Gonzales EO # 0.2 103/ul Normal 0.0-0.7 [facility] Comment on above: Performed By: #### C VDAGS #### [facility] [address] [place] [address] Dr. Alexei Gonzales Eosinophils/100 WBC (Bld) 1.9 % Normal 0.9-7.0 [facility] Comment on above: Performed By: #### C VDAGS #### [facility] [address] [place] [address] Dr. Alexei Gonzales Erythrocyte distribution width (RBC) [Ratio] 13.3 % Normal 11.0-15.0 [facility] Comment on above: Performed By: #### C VDAGS #### [facility] [address] [place] [address] Dr. Alexei Gonzales Hematocrit (Bld) [Volume fraction] 40.8 % Normal 36.0-48.0 [facility] Comment on above: Performed By: #### C VDAGS #### [facility] [address] [place] [address] Dr. Alexei Gonzales Hemoglobin (Bld) [Mass/Vol] 13.0 g/dL Normal 12.0-16.0 [facility] Comment on above: Performed By: #### C VDAGS #### [facility] [address] [place] [address] Dr. Alexei Gonzales IG # 0.05 10e3/ul Critically high 0.00-0.03 [facility] Comment on above: Performed By: #### C VDAGS #### [facility] [address] [place] [address] Dr. Alexei Gonzales IG % 0.4 % Normal 0.0-0.5 [facility] Comment on above: Performed By: #### C VDAGS #### [facility] [address] [place] [address] Dr. Alexei Gonzales LYMPH # 3.4 103/ul Normal 1.2-3.8 [facility] Comment on above: Performed By: #### C VDAGS #### [facility] [address] [place] [address] Dr. Alexei Gonzales Lymphocytes/100 WBC (Bld) 29.1 % Normal 20.5-60.0 [facility] Comment on above: Performed By: #### C VDAGS #### [facility] [address] [place] [address] Dr. Alexei Gonzales MANUAL DIFF REQ NO Normal [facility] Comment on above: Performed By: #### C VDAGS #### [facility] [address] [place] [address] Dr. Alexei Gonzales MCH (RBC) [Entitic mass] 27.3 pg Normal 26.7-34.0 [facility] Comment on above: Performed By: #### C VDAGS #### [facility] [address] [place] [address] Dr. Alexei Gonzales MCHC (RBC) [Mass/Vol] 31.9 g/dL Normal 29.9-35.2 [facility] Comment on above: Performed By: #### C VDAGS #### [facility] [address] [place] [address] Dr. Alexei Gonzales MCV (RBC) [Entitic vol] 85.5 fL Normal 81.0-99.0 [facility] Comment on above: Performed By: #### C VDAGS #### [facility] [address] [place] [address] Dr. Alexei Gonzales MONO # 0.7 103/ul Normal 0.3-0.8 [facility] Comment on above: Performed By: #### C VDAGS #### [facility] [address] [place] [address] Dr. Alexei Gonzales Monocytes/100 WBC (Bld) 5.9 % Normal 1.7-12.0 [facility] Comment on above: Performed By: #### C VDAGS #### [facility] [address] [place] [address] Dr. Alexei Gonzales NEUT # 7.4 103/ul Critically high 1.4-6.5 [facility] Comment on above: Performed By: #### C VDAGS #### [facility] [address] [place] [address] Dr. Alexei Gonzales Neutrophils/100 WBC (Bld) 62.3 % Normal 43.0-75.0 [facility] Comment on above: Performed By: #### C VDAGS #### [facility] [address] [address] [address] Alexei Gonzales Platelet mean volume (Bld) [Entitic vol] 10.4 fL Normal 9.5-13.5 [facility] Comment on above: Performed By: #### C VDAGS #### [facility] [address] [place] [address] Dr. Alexei Gonzales PLT 319 103/ul Normal 150-450 [facility] Comment on above: Performed By: #### C VDAGS #### [facility] [address] [place] [address] Dr. Alexei Gonzales RBC 4.77 106/ul Normal 4.20-5.40 [facility] Comment on above: Performed By: #### C VDAGS #### [facility] [address] [place] [address] Dr. Alexei Gonzales WBC 11.8 103/ul Critically high 4.0-11.0 The [facility] Comment on above: Performed By: #### C VDAGS #### [facility] [address] [place] [address] Dr. Alexei Gonzales FREE T4on 11-30-2021 Free T4 [Mass/Vol] 1.20 ng/dL Normal 0.76-1.46 [facility] Comment on above: Performed By: #### F T4 #### [facility] [address] [place] [address] Dr. Alexei Gonzales GLYCOHEMOGLOBIN A1Con 2021 ADA RECOMMENDATION SEE BELOW Normal [facility] Comment on above: Result Comment: ADA RECOMMENDED LIMIT 4.0 - 6.0 ADA THERAPEUTIC TARGET < 7.0 ACTION SUGGESTED > 7.0 Performed By: #### A 1C #### [facility] [address] [place] [address] Dr. Alexei Gonzales Glucose [Mass/Vol] 126 mg/dL Normal [facility] Comment on above: Performed By: #### A 1C #### [facility] [address] [place] [address] Dr. Alexei Gonzales HbA1c (Bld) [Mass fraction] 6.0 % Normal 4.5-6.2 [facility] Comment on above: Performed By: #### A 1C #### [facility] [address] [address] [address] Alexei Gonzales LIPID PROFILEon 11-30-2021 CHOL-HDL RATIO NORM SEE BELOW Normal [facility] Comment on above: Result Comment: 3.3 - 4.4 LOW RISK 4.4 - 7.1 AVERAGE RISK 7.1 - 11.0 MODERATE RISK >11.0 HIGH RISK Performed By: #### L IPID, CMP, TSH #### [facility] [address] [address] [address] Alexei Gonzales Cholesterol [Mass/Vol] 180 mg/dL Normal <=200 [facility] Comment on above: Performed By: #### L IPID, CMP, TSH #### [facility] [address] [address] [address] Alexei Gonzales Cholesterol in HDL [Mass/Vol] 40 mg/dL Normal 40-60 [facility] Comment on above: Performed By: #### L IPID, CMP, TSH #### [facility] [address] [address] [address] Alexei Gonzales Cholesterol in LDL [Mass/Vol] 114.4 mg/dL Normal [facility] Comment on above: Performed By: #### L IPID, CMP, TSH #### [facility] [address] [address] [address] Alexei Gonzales Cholesterol.total/ Cholesterol in HDL [Mass ratio] 4.5 {ratio} Normal [facility] Comment on above: Performed By: #### L IPID, CMP, TSH #### [facility] [address] [address] [address] Alexei Gonzales HDL NORMAL > or = 60 mg/dl - LO W CARDIOVASCULAR RISK <40 mg/dl - HIGH CARDIOVASCULAR RISK Normal [facility] Comment on above: Performed By: #### L IPID, CMP, TSH #### [facility] [address] [address] [address] Alexei Gonzales LDL CALC NORMAL SEE BELOW Normal [facility] Comment on above: Result Comment: <100 mg/dl OPTIMAL 100 - 129 mg/dl NEAR OR ABOVE OPTIMAL 130 - 159 mg/dl BORDERLINE HIGH 160 - 189 mg/dl HIGH >190 mg/dl VERY HIGH Performed By: #### L IPID, CMP, TSH #### [facility] [address] [address] [address] Alexei Gonzales Triglyceride [Mass/Vol] 128 mg/dL Normal <=150 [facility] Comment on above: Performed By: #### L IPID, CMP, TSH #### [facility] [address] [address] [address] Alexei Gonzales VLDL CALC 25.6 mg/dL Normal [facility] Comment on above: Performed By: #### L IPID CMP, TSH #### [facility] [address] [place] [address] Dr. Alexei Gonzales PROF 14(COMP METB)on 022 Albumin [Mass/Vol] 3.4 g/dL Normal 3.4-5.0 [facility] Comment on above: Performed By: #### L IPID CMP, TSH #### [facility] [address] [place] [address] Dr. Alexei Gonzales Albumin/Globulin [Mass ratio] 0.9 {ratio} Normal [facility] Comment on above: Performed By: #### L IPID CMP, TSH #### [facility] [address] [place] [address] Dr. Alexei Gonzales ALP [Catalytic activity/Vol] 81 U/L Normal 46-116 [facility] Comment on above: Performed By: #### L IPID, CMP, TSH #### [facility] [address] [place] [address] Dr. Alexei Gonzales ALT [Catalytic activity/Vol] 41 U/L Normal 14-59 [facility] Comment on above: Performed By: #### L IPID, CMP, TSH #### [facility] [address] [place] [address] Dr. Alexei Gonzales Anion gap [Moles/Vol] 10.6 mmol/L Normal [facility] Comment on above: Performed By: #### L IPID, CMP, TSH #### [facility] [address] [address] [address] Alexei Gonzales AST [Catalytic activity/Vol] 22 U/L Normal 15-37 [facility] Comment on above: Performed By: #### L IPID, CMP, TSH #### [facility] [address] [address] [address] Alexei Gonzales Bilirubin [Mass/Vol] 0.4 mg/dL Normal 0.2-1.0 [facility] Comment on above: Performed By: #### L IPID, CMP, TSH #### [facility] [address] [address] [address] Alexei Gonzales Calcium [Mass/Vol] 9.1 mg/dL Normal 8.5-10.1 [facility] Comment on above: Performed By: #### L IPID, CMP, TSH #### [facility] [address] [address] [address] Alexei Gonzales Chloride [Moles/Vol] 105 mmol/L Normal 98-107 [facility] Comment on above: Performed By: #### L IPID, CMP, TSH #### [facility] [address] [address] [address] Alexei Gonzales CO2 [Moles/Vol] 25.6 mmol/L Normal 21.0-32.0 [facility] Comment on above: Performed By: #### L IPID, CMP, TSH #### [facility] [address] [address] [address] Alexei Gonzales Creatinine [Mass/Vol] 0.84 mg/dL Normal 0.55-1.02 [facility] Comment on above: Performed By: #### L IPID, CMP, TSH #### [facility] [address] [address] [address] Alexei Gonzales EGFR-AF GERMAN >60 Normal >=60 [facility] Comment on above: Performed By: #### L IPID, CMP, TSH #### [facility] [address] [address] [address] Alexei Gonzales EGFR-NON AF GERMAN >60 Normal >=60 [facility] Comment on above: Performed By: #### L IPID, CMP, TSH #### [facility] [address] [place] [address] Dr. Alexei Gonzales Globulin (S) [Mass/Vol] 4.0 g/dL Normal [facility] Comment on above: Performed By: #### L IPID, CMP, TSH #### [facility] [address] [place] [address] Dr. Alexei Gonzales Glucose [Mass/Vol] 113 mg/dL Critically high 74-106 [facility] Comment on above: Performed By: #### L IPID, CMP, TSH #### [facility] [address] [place] [address] Dr. Alexei Gonzales Potassium [Moles/Vol] 4.2 mmol/L Normal 3.5-5.1 [facility] Comment on above: Performed By: #### L IPID, CMP, TSH #### [facility] [address] [place] [address] Dr. Alexei Gonzales Protein [Mass/Vol] 7.4 g/dL Normal 6.4-8.2 [facility] Comment on above: Performed By: #### L IPID, CMP, TSH #### [facility] [address] [place] [address] Dr. Alexei Gonzales Sodium [Moles/Vol] 137 mmol/L Normal 136-145 [facility] Comment on above: Performed By: #### L IPID, CMP, TSH #### [facility] [address] [place] [address] Dr. Alexei Gonzales Urea nitrogen [Mass/Vol] 14.0 mg/dL Normal 7.0-18.0 [facility] Comment on above: Performed By: #### L IPID, CMP, TSH #### [facility] [address] [place] [address] Dr. Alexei Gonzales Urea nitrogen/Creatinin e [Mass ratio] 16.7 mg/mg Normal [facility] Comment on above: Performed By: #### L IPID, CMP, TSH #### [facility] [address] [place] [address] Dr. Alexei Gonzales TSHon 11-30-2021 TSH 1.150 uIU/mL Normal 0.358-3.740 [facility] Comment on above: Performed By: #### L IPID, CMP, TSH #### [facility] [address] [place] [address] Dr. Alexei Gonzales UA RANDOM W/MICROSCOPICon BACTERIA SMALL Abnormal NONE SEEN [facility] Comment on above: Performed By: #### C BC #### [facility] [address] [place] [address] Dr. Alexei Gonzales Bilirubin Ql (U) Negative Normal NEGATIVE [facility] Comment on above: Performed By: #### C BC #### [facility] [address] [place] [address] Dr. Alexei Gonzales CAST NONE SEEN Normal NONE SEEN [facility] Comment on above: Performed By: #### C BC #### [facility] [address] [place] [address] Dr. Alexei Gonzales Clarity (U) CLEAR Normal CLEAR [facility] Comment on above: Performed By: #### C BC #### [facility] [address] [place] [address] Dr. Alexei Gonzales Color (U) YELLOW Normal YELLOW [facility] Comment on above: Performed By: #### C BC #### [facility] [address] [place] [address] Dr. Alexei Gonzales Crystals LM Nom (Urine sed) NONE SEEN Normal NONE SEEN [facility] Comment on above: Performed By: #### C BC #### [facility] [address] [place] [address] Dr. Alexei Gonzales Epithelial cells LM Ql (Urine sed) MODERATE Abnormal NONE SEEN /RARE [facility] Comment on above: Performed By: #### C BC #### [facility] [address] [place] [address] Dr. Alexei Gonzales Glucose Ql (U) Negative Normal NEGATIVE [facility] Comment on above: Performed By: #### C BC #### [facility] [address] [place] [address] Dr. Alexei Gonzales Hemoglobin Ql (U) TRACE-INTACT Abnormal NEGATIVE [facility] Comment on above: Performed By: #### C BC #### [facility] [address] [place] [address] Dr. Alexei Gonzales Ketones Ql (U) TRACE Abnormal NEGATIVE [facility] Comment on above: Performed By: #### C BC #### [facility] [address] [place] [address] Dr. Alexei Gonzales LEUKOCYTES Negative Normal NEGATIVE [facility] Comment on above: Performed By: #### C BC #### [facility] [address] [place] [address] Dr. Alexei Gonzales MUCOUS TRACE Abnormal NONE SEEN [facility] Comment on above: Performed By: #### C BC #### [facility] [address] [place] [address] Dr. Alexei Gonzales Nitrite Ql (U) Negative Normal NEGATIVE [facility] Comment on above: Performed By: #### C BC #### [facility] [address] [place] [address] Dr. Alexei Gonzales pH (U) 5.5 [pH] Normal 5-9 [facility] Comment on above: Performed By: #### C BC #### [facility] [address] [place] [address] Dr. Alexei Gonzales RBC 2-5 Abnormal 0-2 [facility] Comment on above: Performed By: #### C BC #### [facility] [address] [place] [address] Dr. Alexei Gonzales SPEC GRAVITY >=1.030 Abnormal 1.005-<=1.0 25 [facility] Comment on above: Performed By: #### C BC #### [facility] [address] [place] [address] Dr. Alexei Gonzales UA PROTEIN Negative Normal NEGATIVE/ TRACE [facility] Comment on above: Performed By: #### C BC #### [facility] [address] [place] [address] Dr. Alexei Gonzales Urobilinogen Qn (U) 0.2 {Albin'U}/dL Normal 0.2 - 1.0 [facility] Comment on above: Performed By: #### C BC #### [facility] [address] [address] [address] Alexei Gonzales WBC 2-5 Abnormal NONE SEEN [facility] Comment on above: Performed By: #### C BC #### [facility] [address] [place], [place] [address] Dr. Alexei Gonzales CBC AUTO DIFFon 11-22-2021 BASO # 0.1 103/ul Normal 0.0-0.1 [facility] Comment on above: Performed By: #### C BC #### [facility] [address] [place] [address] Dr. Alexei Gonzales Basophils/100 WBC (Bld) 0.4 % Normal 0.2-2.0 [facility] Comment on above: Performed By: #### C BC #### [facility] [address] [place] [address] Dr. Alexei Gonzales EO # 0.2 103/ul Normal 0.0-0.7 [facility] Comment on above: Performed By: #### C BC #### [facility] [address] [place] [address] Dr. Alexei Gonzales Eosinophils/100 WBC (Bld) 1.4 % Normal 0.9-7.0 [facility] Comment on above: Performed By: #### C BC #### [facility] [address] [place] [address] Dr. Alexei Gonzales Erythrocyte distribution width (RBC) [Ratio] 13.2 % Normal 11.0-15.0 [facility] Comment on above: Performed By: #### C BC #### [facility] [address] [place] [address] Dr. Alexei Gonzales Hematocrit (Bld) [Volume fraction] 38.8 % Normal 36.0-48.0 [facility] Comment on above: Performed By: #### C BC #### [facility] [address] [place] [address] Dr. Alexei Gonzlaes Hemoglobin (Bld) [Mass/Vol] 12.6 g/dL Normal 12.0-16.0 [facility] Comment on above: Performed By: #### C BC #### [facility] [address] [address] [address] Alexei Gonzales IG # 0.04 10e3/ul Critically high 0.00-0.03 [facility] Comment on above: Performed By: #### C BC #### [facility] [address] [place] [address] Dr. Alexei Gonzales IG % 0.3 % Normal 0.0-0.5 [facility] Comment on above: Performed By: #### C BC #### [facility] [address] [place] [address] Dr. Alexei Gonzales LYMPH # 3.4 103/ul Normal 1.2-3.8 [facility] Comment on above: Performed By: #### C BC #### [facility] [address] [place] [address] Dr. Alexei Gonzales Lymphocytes/100 WBC (Bld) 26.9 % Normal 20.5-60.0 [facility] Comment on above: Performed By: #### C BC #### [facility] [address] [place] [address] Dr. Alexei Gonzales MANUAL DIFF REQ NO Normal [facility] Comment on above: Performed By: #### C BC #### [facility] [address] [place] [address] Dr. Alexei Gonzales MCH (RBC) [Entitic mass] 27.3 pg Normal 26.7-34.0 [facility] Comment on above: Performed By: #### C BC #### [facility] [address] [place] [address] Dr. Alexei Gonzales MCHC (RBC) [Mass/Vol] 32.5 g/dL Normal 29.9-35.2 [facility] Comment on above: Performed By: #### C BC #### [facility] [address] [place] [address] Dr. Alexei Gonzales MCV (RBC) [Entitic vol] 84.2 fL Normal 81.0-99.0 [facility] Comment on above: Performed By: #### C BC #### [facility] [address] [place] [address] Dr. Alexei Gonzales MONO # 0.6 103/ul Normal 0.3-0.8 [facility] Comment on above: Performed By: #### C BC #### [facility] [address] [address] [address] Alexei Gonzales Monocytes/100 WBC (Bld) 5.1 % Normal 1.7-12.0 [facility] Comment on above: Performed By: #### C BC #### [facility] [address] [place] [address] Dr. Alexei Gonzales NEUT # 8.3 103/ul Critically high 1.4-6.5 [facility] Comment on above: Performed By: #### C BC #### [facility] [address] [place] [address] Dr. Alexei Gonzales Neutrophils/100 WBC (Bld) 65.9 % Normal 43.0-75.0 [facility] Comment on above: Performed By: #### C BC #### [facility] [address] [place] [address] Dr. Alexei Gonzales Platelet mean volume (Bld) [Entitic vol] 10.1 fL Normal 9.5-13.5 [facility] Comment on above: Performed By: #### C BC #### [facility] [address] [place] [address] Dr. Alexei Gonzales PLT 373 103/ul Normal 150-450 [facility] Comment on above: Performed By: #### C BC #### [facility] [address] [place] [address] Dr. Alexei Gonzales RBC 4.61 106/ul Normal 4.20-5.40 [facility] Comment on above: Performed By: #### C BC #### [facility] [address] [place] [address] Dr. Alexei Gonzales WBC 12.5 103/ul Critically high 4.0-11.0 [facility] Comment on above: Performed By: #### C BC #### [facility] [address] [place] [address] Dr. Alexei Gonzales PREG HCG QUALon 11-22-2021 , QUAL Negative Normal NEGATIVE [facility] Comment on above: Performed By: #### C BC #### [facility] [address] [place] [address] Dr. Alexei Gonzales PROF 14(COMP METB)on 022 Albumin [Mass/Vol] 3.3 g/dL Critically low 3.4-5.0 [facility] Comment on above: Performed By: #### C BC #### [facility] [address] [place] [address] Dr. Alexei Gonzales Albumin/Globulin [Mass ratio] 0.8 {ratio} Normal [facility] Comment on above: Performed By: #### C BC #### [facility] [address] [place] [address] Dr. Alexei Gonzales ALP [Catalytic activity/Vol] 89 U/L Normal 46-116 [facility] Comment on above: Performed By: #### C BC #### [facility] [address] [place] [address] Dr. Alexei Gonzales ALT [Catalytic activity/Vol] 43 U/L Normal 14-59 [facility] Comment on above: Performed By: #### C BC #### [facility] [address] [place] [address] Dr. Alexei Gonzales Anion gap [Moles/Vol] 13.4 mmol/L Normal [facility] Comment on above: Performed By: #### C BC #### [facility] [address] [place] [address] Dr. Alexei Gonzales AST [Catalytic activity/Vol] 17 U/L Normal 15-37 [facility] Comment on above: Performed By: #### C BC #### [facility] [address] [place] [address] Dr. Alexei Gonzales Bilirubin [Mass/Vol] 0.3 mg/dL Normal 0.2-1.0 [facility] Comment on above: Performed By: #### C BC #### [facility] [address] [place] [address] Dr. Alexei Gonzales Calcium [Mass/Vol] 8.9 mg/dL Normal 8.5-10.1 [facility] Comment on above: Performed By: #### C BC #### [facility] [address] [place] [address] Dr. Alexei Gonzales Chloride [Moles/Vol] 103 mmol/L Normal 98-107 [facility] Comment on above: Performed By: #### C BC #### [facility] [address] [place] [address] Dr. Alexei Gonzales CO2 [Moles/Vol] 26.4 mmol/L Normal 21.0-32.0 [facility] Comment on above: Performed By: #### C BC #### [facility] [address] [place] [address] Dr. Alexei Gonzales Creatinine [Mass/Vol] 0.91 mg/dL Normal 0.55-1.02 [facility] Comment on above: Performed By: #### C BC #### [facility] [address] [place] [address] Dr. Alexei Gonzales EGFR-AF GERMAN >60 Normal >=60 [facility] Comment on above: Performed By: #### C BC #### [facility] [address] [place] [address] Dr. Alexei Gonzales EGFR-NON AF GERMAN >60 Normal >=60 [facility] Comment on above: Performed By: #### C BC #### [facility] [address] [place] [address] Dr. Alexei Gonzales Globulin (S) [Mass/Vol] 4.1 g/dL Normal [facility] Comment on above: Performed By: #### C BC #### [facility] [address] [place] [address] Dr. Alexei Gonzales Glucose [Mass/Vol] 151 mg/dL Critically high 74-106 [facility] Comment on above: Performed By: #### C BC #### [facility] [address] [place] [address] Dr. Alexei Gonzales Potassium [Moles/Vol] 3.8 mmol/L Normal 3.5-5.1 [facility] Comment on above: Performed By: #### C BC #### [facility] [address] [place], [place] [address] Dr. Alexei Gonzales Protein [Mass/Vol] 7.4 g/dL Normal 6.4-8.2 [facility] Comment on above: Performed By: #### C BC #### [facility] [address] [place], [place] [address] Dr. Alexei Gonzales Sodium [Moles/Vol] 139 mmol/L Normal 136-145 [facility] Comment on above: Performed By: #### C BC #### [facility] [address] [place], [place] [address] Dr. Alexei Gonzales Urea nitrogen [Mass/Vol] 12.0 mg/dL Normal 7.0-18.0 [facility] Comment on above: Performed By: #### C BC #### [facility] [address] [address] [address] Alexei Gonzales Urea nitrogen/Creatinin e [Mass ratio] 13.2 mg/mg Normal [facility] Comment on above: Performed By: #### C BC #### [facility] [address] [place], [place] [address] Dr. Alexei Gonzales TROPONIN, HIGH SENSITIVITYon 11-22-2021 HSTROP 5.0 pg/mL Normal 4.0-51.3 [facility] Comment on above: Result Comment: CUT- OFF POINTS HAVE BEEN ESTABLISHED BASED ON THE FOURTH UNIVERSAL DEFINITIONS OF MYOCARDIAL INFARCTION. THE UPPER REFERENCE LIMIT (URL) OF TROPONIN, DEFINED THE 99TH PERCENTILE OF cTnI DISTRIBUTION IN A REFERENCE POPULATION, HAS BEEN CONFIRMED THE DECISION THRESHOLD FOR CO DIAGNOSIS. Performed By: #### C BC #### [facility] [address], [place] [address] Dr. Alexei Gonzales XR CHEST 1 Von [...] cardiopulmonary process identified. Electronically authenticated by: LUDMILA OLIVIAHILL Date: 2021-11-21 23:31 Normal [facility] PAP ACOG PANEL 2: 30 to 65on 10-22-2021 . . Normal [facility] Comment on above: Result Comment: Perf ormed at: WB Performed By: #### [id number] #### [facility] [address] [place] [address] Dr. Alexei Gonzales Age Gdln ACOG Testing 30-65 Normal [facility] Comment on above: Performed By: #### [id number] #### [facility] [address] [address] [address] Alexei Gonzales DIAGNOSIS: Comment Normal [facility] Comment on above: Result Comment: NEGA TIVE FOR INTRAEPITHELIAL LESION OR MALIGNANCY. Performed at: WB Performed By: #### [id number] #### [facility] [address] [place] [address] Dr. Alexei Gonzales HPV Aptima Negative Normal Negative [facility] Comment on above: Result Comment: This nucleic acid amplification test detects fourteen high-risk HPV types (16,18,31,33,35,39,45,51,52,56,58,59,66,68) without differentiation. Performed at: =G Performed By: #### [id number] #### [facility] [address] [place] [address] Dr. Alexei Gonzales Methodology: Comment Normal [facility] Comment on above: Result Comment: This liquid based ThinPrep(R) pap test was screened with the use of an image guided system. Performed at: WB Performed By: #### [id number] #### [facility] [address] [place] [address] Dr. Alexei Gonzales Note: Comment Normal [facility] Comment on above: Result Comment: The Pap smear is a screening test designed to aid in the detection of premalignant and malignant conditions of the uterine cervix. It is not a diagnostic procedure and should not be used as the sole means of detecting cervical cancer. Both false-positive and false-negative reports do occur. . Performed at: WB Performed By: #### [id number] #### [facility] [address] [address] [address] Alexei Gonzales Performed by: Comment Normal [facility] Comment on above: Result Comment: Elis Oshea, Plastic Technician (ASCP) Performed at: WB Performed By: #### [id number] #### [facility] [address] [address] [address] Alexei Gonzales Specimen adequacy: Comment Normal [facility] Comment on above: Result Comment: Sati sfactory for evaluation. Endocervical and/or squamous metaplastic cells (endocervical component) are present. Performed at: WB Performed By: #### [id number] #### [facility] [address] [address] [address] Alexei Gonzales Vital Signs Date Time Vital Sign Value Performing Clinician Facility 04-08-2022 14:15-0500 Body height 162.56 cm Luciana Flores Other [facility] Other 04-08-2022 14:15-0500 Body mass index (BMI) [Ratio] 50.46 kg/m2 Luciana Flores Other [facility] Other 04-08-2022 14:15-0500 Body temperature 98.4 [degF] Luciana Flores Other [facility] Other 04-08-2022 14:15-0500 Body weight 133.36 kg Luciana Flores Other [facility] Other 04-08-2022 14:15-0500 Respiratory rate 18 /min Luciana Folres Other [facility] Other 04-08-2022 14:15-0500 SaO2% (BldA) [Mass fraction] 99 % Luciana Flores Other [facility] Other 04-04-2022 09:23-0500 Blood Pressure Location Audi ANGLEA [facility] 04-04-2022 09:23-0500 Diastolic blood pressure 89 mm[Hg] Audi ANGELA [facility] 04-04-2022 09:23-0500 Heart rate 75 /min Audi ANGELA [facility] 04-04-2022 09:23-0500 Respiratory rate 16 /min Audi ANGELA [facility] 04-04-2022 09:23-0500 Systolic blood pressure 136 mm[Hg] Audi ANGELA [facility] 12-30-2021 12:56-0400 Body height 162.6 cm Taiwo Torres MD Work Phone: [facility] 12-30-2021 12:56-0400 Body weight 136.08 kg Taiwo Torres MD Work Phone: [facility] 12-30-2021 12:56-0400 Diastolic blood pressure 72 mm[Hg] Taiwo Torres MD Work Phone: [facility] 12-30-2021 12:56-0400 Systolic blood pressure 116 mm[Hg] Taiwo Torres MD Work Phone: [facility] 08-27-2021 17:50-0400 Body height 162.56 cm Luciana Flores Other [facility] Other 08-27-2021 17:50-0400 Body mass index (BMI) [Ratio] 49.77 kg/m2 Luciana Flores Other [facility] Other 08-27-2021 17:50-0400 Body temperature 97.7 [degF] Luciana Flores Other [facility] Other 08-27-2021 17:50-0400 Body weight 131.54 kg Luciana Flores Other [facility] Other 08-27-2021 17:50-0400 Respiratory rate 18 /min Luciana Flores Other [facility] Other 08-27-2021 17:50-0400 SaO2% (BldA) [Mass fraction] 98 % Luciana Flores Other [facility] Other Encounters Encounter Date Encounter Type Care Provider Facility Start: 04-26-2024 ambulatory Audi Chaudhari ty:[facility] Start: 02-06-2024 End: 02-06-2024 ambulatory RHANDA SAMSON Not Available Comment on above: PTSD (post-traumatic stress disorder) (CMS/HCC); Major depressive disorder, single episode, moderate with anxious distress (HCC) (CMS/HCC); Partner relationship problems Start: 02-06-2024 End: 02-06-2024 Bamboo flowsheet Rhanda Samson JAVA DESIGNER [facility] Start: 02-06-2024 End: 02-06-2024 Bamboo flowsheet Rhanda Samson JAVA DESIGNER [facility] Start: 01-30-2024 End: 01-30-2024 ambulatory WHIT AICHHOLZ Not Available Start: 01-24-2024 End: 01-25-2024 ambulatory RHANDA SAMSON Not Available Start: 01-09-2024 End: 01-09-2024 ambulatory RHANDA SAMSON Not Available Start: 12-27-2023 End: 12-27-2023 ambulatory RHANDA SAMSON Not Available Start: 12-07-2023 End: 12-07-2023 ambulatory WHIT AICHHOLZ Not Available Start: 11-14-2023 End: 11-14-2023 ambulatory WHIT AICHHOLZ Not Available Start: 10-10-2023 End: 10-10-2023 ambulatory WHIT AICHHOLZ Not Available Start: 09-07-2023 End: 09-07-2023 ambulatory WHIT AICHHOLZ Not Available Start: 09-04-2023 End: 09-04-2023 ambulatory ANAM KIRKLAND Not Available Start: 08-29-2023 End: 08-29-2023 ambulatory NON STAFF Facility:[facility] Start: 08-29-2023 End: 08-29-2023 ambulatory PHYSICIAN NO [facility] Work Phone: Start: 08-29-2023 End: 08-29-2023 Departed Referred PHYSICIAN NO [facility] Start: 08-21-2023 End: 08-21-2023 ambulatory ANAM KIRKLAND Not Available Start: 08-01-2023 End: 08-01-2023 ambulatory WHIT AICHHOLZ Not Available Start: 07-12-2023 End: 07-12-2023 ambulatory ADA SELF Not Available Start: 04-21-2023 End: 04-22-2023 ambulatory Audi ANGELA Facility:[facility] Start: 09-20-2022 End: 09-20-2022 ambulatory TOOL OR DIE DRAWING CHECKER WHIT AICHHOLZ Facility:[facility] Start: 08-31-2022 End: 08-31-2022 ambulatory TOOL OR DIE DRAWING CHECKER WHIT AICHHOLZ Facility:[facility] Start: 05-13-2022 End: 05-13-2022 ambulatory TOOL OR DIE DRAWING CHECKER WHIT AICHHOLZ Facility:[facility] Start: 04-18-2022 End: 04-18-2022 ambulatory TOOL OR DIE DRAWING CHECKER WHIT AICHHOLZ Facility:[facility] Start: 04-15-2022 End: 04-16-2022 ambulatory TOOL OR DIE DRAWING CHECKER WHIT AICHHOLZ Facility:[facility] Start: 04-08-2022 End: 04-08-2022 ambulatory Luciana Flores Other [facility] Other Start: 04-08-2022 Office outpatient vi sit 25 minutes Luciana Flores [facility] Start: 04-04-2022 End: 04-04-2022 Patient encounter procedure Audi ANGELA [facility] Start: 01-18-2022 Telephone encounter Sissy hunter MD Work Phone: [facility] Comment on above: Appointment Start: 01-17-2022 End: 01-18-2022 ambulatory PACO POPEJYOTIEddie Facility:[facility] Start: 01-14-2022 End: 01-14-2022 ambulatory Taiwo Torres MD Work Phone: [facility] Comment on above: info Primary amenorrhea ( Primary Dx) Start: 01-14-2022 E-mail encounter fro m caregiver Taiwo Torres MD Work Phone: [facility] Start: 01-14-2022 End: 01-14-2022 Telemedicine consultation with patient Taiwo Torres MD Work Phone: [facility] Start: 12-30-2021 End: 12-31-2021 ambulatory TAIWO TORRES Facility:[facility] Start: 12-30-2021 End: 12-30-2021 Patient encounter procedure Taiow Torres MD Work Phone: [facility] Comment on above: Primary amenorrhea ( Primary Dx) Start: 12-21-2021 End: 12-22-2021 ambulatory TOOL OR DIE DRAWING CHECKER WHIT PIERREOlesyaLAMAR Facility:[facility] Start: 11-30-2021 End: 12-01-2021 ambulatory PACO LAOA PIERREOlesyaLAMAR Facility:[facility] Start: 11-22-2021 End: 11-22-[address] KIRTI CROCKETT Facility:[facility] Start: 10-19-2021 End: 10-19-[address] TIKI LONGO . Facility:[facility] Start: 08-27-2021 End: 08-27-2021 ambulatory Luciana Flores Other [facility] Other Start: 08-27-2021 Office outpatient vi sit 15 minutes Luciana Flores [facility] Procedures Date Procedure Procedure Detail Performing Clinician Start: 12-30-2021 Antibody screen TAIWO TORRES Comment on above: Order Comment: Speci men Type: BLOOD SPECIMENOrdering Facility: [facility] Address: [address] [place] [address] Performed By: #### T SCR ####CC MAIN BLOOD BANKCLIA [id number] [address] [place] Start: 10-19-2021 Microscopic observat ion [Identifier] in Cervix by Cyto stain Patric Valdivia LPC Plan of Treatment Date Care Activity Detail Author Start: 10-19-2024 Screening for malign ant neoplasm of cervix [facility] Start: 04-25-2024 End: 04-25-2024 Patient encounter procedure 04/25/2024 3:20 PM EST Office Visit [facility] [address] [place] [phone] Whit Ca NP [address] [place] [address] [facility] Start: 03-04-2024 End: 03-04-2024 Clinical Support 03/04/2024 4:00 PM EDT Clinical Support [facility] [address] [place] [phone] Patric Valdivia LPC [facility] Start: 02-28-2024 End: 02-28-2024 Patient encounter procedure 02/28/2024 4:00 PM EDT Office Visit [facility] [address] [place] [address] Thao Bahena, [address] [place] [address] [facility] [address] [facility] Start: 01-06-2022 Influenza vaccination INFLUENZA (#1) [facility] Start: 12-30-2021 End: 03-01-2022 25-hydroxyvitamin D3 [Mass/volume] in Serum or Plasma [facility] Work Phone: Comment on above: Expected: 12/30/2021 , Expires: 03/01/2022 Start: 12-30-2021 End: 03-01-2022 Estradiol (E2) [Mass/volume] in Serum or Plasma [facility] Work Phone: Comment on above: Expected: 12/30/2021 , Expires: 03/01/2022 Start: 12-30-2021 End: 03-01-2022 Follitropin [Units/volume] in Serum or Plasma [facility] Work Phone: Comment on above: Expected: 12/30/2021 , Expires: 03/01/2022 Start: 12-30-2021 End: 03-01-2022 Hemoglobin A1c in Blood [facility] Work Phone: Comment on above: Expected: 12/30/2021 , Expires: 03/01/2022 Start: 12-30-2021 End: 03-01-2022 Prolactin [Mass/volume] in Serum or Plasma [facility] Work Phone: Comment on above: Expected: 12/30/2021 , Expires: 03/01/2022 Start: 12-30-2021 End: 03-01-[address] [facility] Work Phone: Comment on above: Expected: 12/30/2021 , Expires: 03/01/2022 Start: 12-30-2021 End: 03-01-2022 Thyrotropin [Units/volume] in Serum or Plasma [facility] Work Phone: Comment on above: Expected: 12/30/2021 , Expires: 03/01/2022 Start: 12-30-2021 End: 03-01-2022 TYPE + SCREEN [facility] Work Phone: Comment on above: Expected: 12/30/2021 , Expires: 03/01/2022 Start: 12-30-2021 End: 03-01-[address] [facility] Work Phone: Comment on above: Expected: 12/30/2021 , Expires: 03/01/2022 Start: 01-30-2021 COVID-19 VACCINE (3 - Booster for Pfizer series) COVID-19 VACCINE (3 - Booster for Pfizer series) [facility] Start: 2019 HPV TESTING HPV TESTING [facility] Start: 2019 Screening for malign ant neoplasm of cervix HPV/Cotest [facility] Start: 2010 PAP TESTING PAP TESTING [facility] Start: 02-23-2008 Urine microalbumin profile DTAP,TDAP,TD (1 - Tdap) [facility] Start: 2007 HEPATITIS C SCREENING HEPATITIS C SC REENING [facility] Start: 2007 HIV SCREENING HIV SCREENING [facility] Start: 2001 Adult depression screening assessment DEPRESSION SCREENING [facility] Start: 1989 HEPATITIS B (1 of 3 - 3-dose series) HEPATITIS B (1 of 3 - 3-dose series) [facility] Immunizations Immunization Date Immunization Notes Care Provider Fa cililatricia 08-30-2020 SARS-CoV-2 (COVID-19 ) mRNA BNT-162b2 jeffrey ANGELA [facility] Comment on above: Result Comment: 2021: TPVAL 08-07-2020 SARS-CoV-2 (COVID-19 ) mRNA BNT-162b2 ankitx Audi ANGELA [facility] Comment on above: Result Comment: 2021: TPVAL 09-21-2001 measles, mumps and rubella virus vaccine Audi ANGELA [facility] Payers Date Payer Category Payer Self-pay [id number] 2023 Unknown [id number] 2022 Unknown [id number] 2019 Unknown [id number] 1989 Unknown [id number] 2.16.84 0.1.585145.3.579.2.593 1989 Unknown [id number] 2.16.84 0.1.334935.3.579.2.593 1989 Unknown [id number] 2.16.84 0.1.362553.3.579.2.593 1989 Unknown [id number] 2.16.84 0.1.455189.3.579.2.593 1989 Unknown [id number] 2.16.84 0.1.507126.3.579.2.593 1989 Unknown [id number] 2.16.84 0.1.567140.3.579.2.593 1989 Unknown [id number] 2.16.84 0.1.967380.3.579.2.593 1989 Unknown [id number] 2.16.84 0.1.134594.3.579.2.593 1989 Unknown [id number] 2.16.84 0.1.843112.3.579.2.593 1989 Unknown [id number] 2.16.84 0.1.845650.3.579.2.593 1989 Unknown [id number] 2.16.8 40.1.682564.3.579.2.727 1989 Unknown [id number] 2.16.8 40.1.486972.3.579.2.727 1989 Unknown [id number] 2.16.84 0.1.197681.3.579.2.1259 1989 Unknown [id number] 2.16.84 0.1.548975.3.579.2.1259 1989 Unknown [id number] 2.16.84 0.1.864039.3.579.2.1259 1989 Unknown [id number] 2.16.84 0.1.397056.3.579.2.1259 1989 Unknown [id number] 2.16.84 0.1.520587.3.579.2.1259 1989 Unknown [id number] 2.16.84 0.1.081997.3.579.2.1259 1989 Unknown [id number] 2.16.84 0.1.878798.3.579.2.1259 1989 Unknown [id number] 2.16.84 0.1.285444.3.579.2.1259 1989 Unknown [id number] 2.16.84 0.1.887682.3.579.2.1259 1989 Unknown [id number] 2.16.84 0.1.290056.3.579.2.1259 1989 Unknown [id number] 2.16.84 0.1.118515.3.579.2.1259 1989 Unknown [id number] 2.16.84 0.1.112899.3.579.2.1259 1989 Unknown [id number] 2.16.84 0.1.224759.3.579.2.1259 1960 [facility] [id number] 2.16.840.1.574344.19 Unknown [id number] 2.16.8 40.1.909935.3.579.2.531 Social History Date Type Detail Facility Unknown if ever smoked [facility] Other Start: 07-25-2023 End: 12-27-2023 Sex Assigned At [facility] Start: 12-30-2021 End: 01-30-2024 Tobacco smoking status NHIS Ex-smoker [facility] Start: 05-08-2005 End: 05-08-2020 History of tobacco use Current smoker [facility] Start: 05-08-2005 End: 05-08-2020 History of tobacco use Cigarette Smoker [facility] Start: 12-30-2021 Tobacco use and exposure User of smokeless tobacco [facility] Start: 12-30-2021 Tobacco Comment VAPE [facility] Start: 1989 Sex Assigned At Not on file [facility] Start: 12-20-2021 End: 12-30-2021 Exposure to SARS-CoV-2 (event) Not sure [facility] Start: 1989 Sex Assigned At Female [facility] Start: 07-25-2023 End: 01-30-2024 Cigarettes smoked current (pack per day) - Reported 1.5 [facility] Start: 01-30-2024 Tobacco use and exposure Smokeless tobacco non-user [facility] Start: 01-30-2024 Alcoholic beverage intake Ex-drinker (finding) [facility] Do you belong to any clubs or organizations such as advent groups, unions, fraternal or athletic groups, or school groups? No [facility] Are you now , , , , never or living with a partner? Never [facility] How often to you hav e a drink containing alcohol? Monthly or less [facility] How many standard dr inks containing alcohol do you have on a typical day? 1 or 2 [facility] How often do you hav e 6 or more drinks on 1 occasion? Never [facility] How hard is it for y ou to pay for the very basics like food, housing, medical care, and heating Not very hard [facility] Do you feel stress - tense, restless, nervous, or anxious, or unable to sleep at night because your mind is troubled all the time - these days [OSQ] To some extent [facility] (I/We) worried wheth er (my/our) food would run out before (I/we) got money to buy more. Never true [facility] In the past 12 month s, has lack of transportation kept you from medical appointments or from getting medications? No [facility] Start: 08-01-2023 Alcohol Comment caffine: coffee 2 daily and energy drink 2 weekly [facility] Functional Status Date Assessment Result Facility 04-04-2022 Functional Status N/A [facility] Clinical Notes 08-27-2021 to 04-08-2022 Note [...] treatment plan. Patient left in stable condition [facility] 11-28-2022 Hospital Discharge instructions Patient Education [...] Follow these instructions at home: Medicines Take ivwk-uvk-jrxzfty and prescription medicines only as told by [...] or the blood stops without treatment. Take zmzo-rxj-rvkuzdn and prescription medicines only as told by your health care provider. Drink enough fluid to keep your urine clear or pale yellow. This information is not intended to replace advice given to you by your health care provider. Make sure you discuss any questions you have with your health care provider. Document Released: 04/24/2006 Document Revised: 09/18/2019 Document Reviewed: 05/27/2017 [employer] Patient Education 2019 KOEZY. Follow Up Care 03/01/2022 10:00:52 With:ALESSANDRO EGAN, Audi Felton, URL Address: [facility] [address], [place] [address]- When: Unknown Comments:Schedule cysto, [facility] Miscellaneous Notes* Telephone Encounter - Luciana Dennis - 01/18/2022 10:29 AM EDT Sissy Brown MD P i A10 Scheduling Pool New PCOS patient for clinic Call to patient, no answer. Left voicemail for patient to call the office so that we may assist with scheduling and appointmentwith Dr. Kwan for PCOS clinic. Luciana Dennis [facility] NoteHNO ID: [id number] Author: Taiwo Torres MD Service: ? Author Type: Physician [...] begin metformin AND vit D referred to med endo wt loss clinic I spent a total of 20 minutes via virtual visit which included preparing to see the patient, mtsz-he-rmvt patient care, completing clinical documentation, obtaining and/or reviewing separately obtained history, counseling and educating the patient/family/caregiver, and ordering medications, tests, or procedures. Medical Decision Making: Problems: Low: Stable chronic illness Data: Unique test result(s) reviewed: 3+ Medical Decision Making Level: 3 - Low Taiwo Torres MD .[facility]09-09-2022 History of Present illness Narrative* Taiwo Torres MD - 01/14/2022 1:01 PM EDT [...] begin metformin & vit D referred to [facility] loss clinic I spent a total of 20 minutes via virtual visit which included preparing to see the patient, wjcl-wv-cvud patient care, completing clinical documentation, obtaining and/or reviewing separately obtained history, counseling and educating the patient/family/caregiver, and ordering medications, tests, or procedures. Medical Decision Making: Problems: Low: Stable chronic illness Data: Unique test result(s) reviewed: 3+ Medical Decision Making Level: 3 - Low Taiwo Torres MD . [facility] NoteHNO ID: [id number] Author: Taiwo Torres MD Service: ? Author Type: Physician [...] which included preparing to see the patient, fgvk-ng-pdlt patient care, completing clinical documentation, obtaining and/or reviewing separately obtained history, counseling and educating the patient/family/caregiver, and ordering medications, tests, or procedures. Taiwo Torres MD [facility] History of Present illness Narrative* Taiwo Torres MD - 12/30/2021 1:23 PM EDT [...] which included preparing to see the patient, tqma-oy-mitb patient care, completing clinical documentation, obtaining and/or reviewing separately obtained history, counseling and educating the patient/family/caregiver, and ordering medications, tests, or procedures. Taiwo Torres MD letter to Dr. Longo [facility] Evaluation note* Encounter Date Diagnosis Assessment Notes Treatment Notes Treatment Clinical Notes Aug, Contact with and (suspected) exposure to other viral communicable diseases (ICD-10 - Z20.828) Aug, Viral URI with cough (ICD-10 - J06.9) Advised patient that Influenza A/B, rapid COVID antigen, and Strep test were negative. Discussed diagnosis with patient. Will send in rx of [place] and Flonase to use as directed. Encouraged [...] Patient care instructions given in writting by [facility] Care At Home document [facility] Other Evaluation + Plan note No data available for this section [facility] Localsensor evaluation note* Diagnosis Primary amenorrhea- Primary Absence of menstruation [facility]* Diagnosis Primary amenorrhea- Primary Absence of menstruation documented in this [facility] noteNo assessment information availableAshtabula [facility] Work Phone: Evaluation note* Diagnosis PTSD (post-traumatic stress disorder) ([facility]) Posttraumatic stress disorder Major depressive disorder, single episode, moderate with anxious distress (HCC) ([facility]) Partner relationship problems documented in this encounter [facility] general Narrative - Reported* Type Description Date Surgical History wisdom teeth [facility] Other Progress note No data available for this section [facility] [place] Summary Purpose Family History No Family History Records FoundNo Family History Records FoundNo Family History Records FoundNo Family History Records FoundNo Family History Records Found Advance Directives Advance Directive Response Recorded Date/ Time Advance Directives No August 28 021 5:22pm Additional Source Comments REASON FOR VISIT (unrecogniz ed section and content) Reason Comments New Patient Infertility Reason Comments Amenorrhea Reason Comments Appointment Reason Comments Follow-up PTSD (Post-Traumatic Stress Disorder) Depression Source Comments (unrecognize d section and content) In the event this informatio n is protected by the Federal Confidentiality of Alcohol and Drug Abuse Patient Records regulations: The Federal rules restrict any use of the information to criminally investigate or prosecute any alcohol or drug abuse patient.[facility] HospitalIn the event this information is protected by the Federal Confidentiality of Alcohol and Drug Abuse Patient Records regulations: The Federal rules restrict any use of the information to criminally investigate or prosecute any alcohol or drug abuse patient.[facility] HospitalIn the event this information is protected by the Federal Confidentiality of Alcohol and Drug Abuse Patient Records regulations: The Federal rules restrict any use of the information to criminally investigate or prosecute any alcohol or drug abuse patient.[facility] the event this information is protected by the Federal Confidentiality of Alcohol and Drug Abuse Patient Records regulations: The Federal rules restrict any use of the information to criminally investigate or prosecute any alcohol or drug abuse patient.[facility] Care Teams (unrecognized sec tion and content) Soap Boiler Relationship Specialty Start Date End Date Tiki Longo [facility] [place] [address] Referring Obstetrics 11/16/21 Soap Boiler Relationship Specialty Start Date End Date ChristinaTiki powell [address] [facility] [place], [place] [phone] Referring Obstetrics 11/16/21 Soap Boiler Relationship Specialty Start Date End Date Tiki Longo [address] [facility] [place], [place] [id number] Referring Obstetrics 11/16/21 Soap Boiler Relationship Specialty Start Date End Date ChristinaTiki powell [address] [facility] [place], [place] [phone] Referring Obstetrics 11/16/21 Team Status: Active Member Role Status Dates PHYSICIAN NO FAMILY Primary Care Provider Active Team Status: Inactive Member Role Status Dates PHYSICIAN NO FAMILY Primary Care Provider Active Start: August 29, 2023 End: August 29, 2023 NON STAFF Attending Provider Active Start: 2023 End: August 29, 2023 Soap Boiler Relationship Specialty Start Date End Date Mushtaq Lu MD [address] [place] [phone] PCP - General Family Medicine 08/01/23 Whit Ca NP [address] [place] [phone] Nurse Practitioner Family Medicine 08/01/23 Soap Boiler Relationship Specialty Start Date End Date Mushtaq Lu MD [address] [place] [phone] PCP - General Family Medicine 08/01/23 Whit Ca NP [address] [place] [phone] Nurse Practitioner Family Medicine 08/01/23 INFORMATION SOURCE (unrecogn ized section and content) DATE CREATED AUTHOR 02/06/2022 [facility] DATE CREATED AUTHOR AUTHOR'S ORGANIZ ATION 09/21/2022 [facility] DATE CREATED AUTHOR AUTHOR'S ORGANIZ ATION 04/23/2023 [facility] DATE CREATED AUTHOR AUTHOR'S ORGANIZ ATION 09/01/2023 [facility] DATE CREATED AUTHOR AUTHOR'S ORGANIZ ATION 02/08/2024 [facility] EPIC Goals (unrecognized section and [...] BE BASED ON THE PRIMARY CLINICAL RECORDS. [employer] ([employer] [facility]. provides no warranty or guarantee of the accuracy or completeness of information in this document.
--- NOTE | 2024-02-19 14:32 | CT_ITS ---
The [address] [address] Patient Name: MATT RICKS MRN: [id number] date: 1990 Sex: F Assigned Patient Location: ER Current Patient Location: ER Accession/Order Number: [id number] Exam Date: 02/19/2024 15:05 Report Date: 02/19/2024 15:28 At the request of: JOSE MARQUEZ Procedure: CT abdomen pelvis w con EXAMINATION: CT abdomen pelvis w con HISTORY: RLQ pain COMPARISON: No relevant comparison available. TECHNIQUE: CT images were created with IV contrast. Axial, Coronal, and Sagittal images. Dose reduction techniques were achieved by using automated exposure control and/or adjustment of mA and/or kV according to patient size and/or use of iterative reconstruction technique. FINDINGS: LUNG BASES: 3 mm subpleural nodule right lower lobe axial image #3 LIVER: No enlargement, atrophy, abnormal density, or significant focal lesion. BILIARY: Gallbladder is absent PANCREAS: No lesion, fluid collection, ductal dilatation, or atrophy. SPLEEN: No enlargement or focal lesion. ADRENALS: Punctate nonobstructing right nephrolith. No obstructive uropathy KIDNEYS: No mass, obstruction, or calcification. BOWEL/MESENTERY: No visible mass, obstruction, or bowel wall thickening. Normal appendix AORTA/VASCULAR: No aneurysm or dissection. RETROPERITONEUM: No mass or adenopathy. LYMPH NODES: No adenopathy. URINARY BLADDER: No visible focal wall thickening, lesion, or calculus. PELVIC ORGANS: No visible mass. Pelvic organs appropriate for patient age. ABDOMINAL WALL: Left periumbilical ventral hernia containing fat and small bowel loops measuring 6.6 x 2.7 cm in axial image 78 and 6 cm in craniocaudal dimension through a neck measuring 2.1 cm centimeters. Mild mesenteric stranding is observed BONES: No bony lesion or fracture. OTHER: Negative. CT/CT abdomen pelvis w con IMPRESSION: Left lower quadrant 6.6 x 2.7 x 6.0 cm ventral hernia containing mesenteric fat and small bowel loops with inflammatory changes suggesting an element of strangulation/incarceration Electronically authenticated by: BORIS OSHEA Date: 02/19/2024 15:28
--- NOTE | 2024-02-19 14:33 | ED_ITS ---
HPI - Abdominal Pain General Chief Complaint: Abdominal Pain Stated Complaint: ABDOMINAL PAIN Time Seen by Provider: 02/19/24 14:29 Source: patient Mode of arrival: walk-in Limitations: no limitations History of Present Illness HPI narrative: 33 year old female presents to the ED for RLQ pain. Onset was 0600 this morning. Denies fever, chills, urinary sx, N/V/D, injury. She had a cholecystectomy 8 months ago. She has a known hernia to her left abdomen. Pt denies pain over hernia area. Denies chance of . Related Data Home Medications ?Medication ?Instructions ?Recorded ?Confirmed Lactobacillus acidophilus 10 100 mmu cells PO DAILY 08/24/23 08/29/23 billion cell capsule (Probacap) fexofenadine 180 mg tablet 180 mg PO DAILY 08/24/23 08/29/23 (Chary Allergy) buspirone 5 mg tablet 5 mg PO BID PRN anxiety 02/19/24 02/19/24 labetalol 100 mg tablet 100 mg PO Q12H 02/19/24 02/19/24 trazodone 50 mg tablet 50 mg PO BEDTIME PRN sleep 02/19/24 02/19/24 Previous Rx's ?Medication ?Instructions ?Recorded ondansetron 4 mg disintegrating 4 mg PO DAILY PRN nausea and 08/29/23 tablet vomiting 4 days #10 tabs oxycodone-acetaminophen 5 mg-325 1 tab PO Q4H PRN abd pain 3 days 08/29/23 mg tablet (Percocet) #10 tabs Allergies Allergy/AdvReac Type Severity Reaction Status Date / Time Penicillins Allergy Unknown Verified 02/19/24 14:25 strawberry Allergy Rash Verified 02/19/24 14:25 Review of Systems ROS Constitutional Denies: fever or chills Ears, nose, mouth, and throat Denies: throat pain or neck pain Cardiovascular Denies: chest pain Respiratory Denies: shortness of breath Gastrointestinal Reports: abdominal pain; Denies: nausea, vomiting or diarrhea Genitourinary Denies: painful urination, urinary frequency, urinary urgency or blood in urine Musculoskeletal Denies: back pain Integumentary/Breast Denies: rash Neurological Denies: headache PFSH PFSH Medical History (Updated 02/19/24 @ 16:28 by Emily Dubon) Back pain ?M54.9 - Dorsalgia, unspecified (ICD-10) Arthritis ?M19.90 - Unspecified osteoarthritis, unspecified site (ICD-10) Carpal tunnel syndrome ?G56.00 - Carpal tunnel syndrome, unspecified upper limb (ICD-10) Panic attacks ?F41.0 - Panic disorder [episodic paroxysmal anxiety] (ICD-10) Depression ?F32.A - Depression, unspecified (ICD-10) Anxiety ?F41.9 - Anxiety disorder, unspecified (ICD-10) Influenza B ?J10.1 - Influenza due to other identified influenza virus with other respiratory manifestations (ICD-10) COVID-19 ?U07.1 - COVID-19 (ICD-10) Kidney stones ?N20.0 - Calculus of kidney (ICD-10) Seasonal allergies ?J30.2 - Other seasonal allergic rhinitis (ICD-10) GERD (gastroesophageal reflux disease) ?K21.9 - Gastro-esophageal reflux disease without esophagitis (ICD-10) PCOS (polycystic ovarian syndrome) ?E28.2 - Polycystic ovarian syndrome (ICD-10) Postoperative nausea and vomiting ?R11.2 - Nausea with vomiting, unspecified (ICD-10) ?Z98.890 - Other specified postprocedural states (ICD-10) Symptomatic cholelithiasis ?K80.20 - Calculus of gallbladder without cholecystitis without obstruction (ICD-10) Surgical History (Updated 08/29/23 @ 07:00 by Sarah Monroy RN) H/O wisdom tooth extraction ?K08.409 - Partial loss of teeth, unspecified cause, unspecified class (ICD- 10) Family History (Updated 08/24/23 @ 13:51 by Cheyenne Garcia NP) Other Family history of diabetes mellitus Family history of hypertension Family history of lung cancer Family history of myocardial infarction Kidney disease Social History (Updated 08/24/23 @ 13:45 by Cheyenne Garcia NP) Within the past year, how often did you have a drink containing alcohol: monthly or less Smoking status: Former smoker Do you use any of these nicotine containing products: vaping products Non-prescribed substance use: denies use Previous occupational history: Factory Highest level of school completed/degree received: high school graduate Little interest or pleasure in doing things: not at all Feeling down, depressed, or hopeless: not at all Exam Constitutional Vital Signs, click to edit/add: Last Vital Signs Temp 98.1 F 02/19/24 14:19 Pulse 98 H 02/19/24 14:19 Resp 20 02/19/24 14:19 BP 143/74 H 02/19/24 14:19 Pulse Ox 98 02/19/24 14:19 O2 Del Method Room Air 02/19/24 14:19 Common normals: no apparent distress and oriented x3 General appearance: cooperative HENMT Mouth: oral and palatal mucosa normal and lip normal Eye Common normals: conjunctivae normal and no scleral icterus Neck & C-Spine Common normals: supple Chest Chest: symmetrical chest wall rise Respiratory Common normals: normal respiratory effort Effort & inspection: able to speak in complete sentences and symmetric chest movement Cardio Common normals: regular rate and regular rhythm GI Common normals: Normal to inspection, nondistended, normoactive bowel sounds present and soft to palpation Palpation: tender Details: RLQ Neuro Common normals: oriented x3 Sensorium/orientation: awake and alert Speech: speech normal Course Vital Signs Vital signs: Vital Signs Temperature 98.1 F 02/19/24 14:19 Pulse Rate 98 H 02/19/24 14:19 Respiratory Rate 20 02/19/24 14:19 Blood Pressure 143/74 H 02/19/24 14:19 Pulse Oximetry 98 02/19/24 14:19 Oxygen Delivery Method Room Air 02/19/24 14:19 Temperature 98.1 F 02/19/24 14:19 Pulse Rate 98 H 02/19/24 14:19 Respiratory Rate 20 02/19/24 14:19 Blood Pressure 143/74 H 02/19/24 14:19 Pulse Oximetry 98 02/19/24 14:19 Oxygen Delivery Method Room Air 02/19/24 14:19 MDM - Abdominal Pain MDM Narrative Medical decision making narrative: WBC count was 14.5; lactic acid 1.0. CT scan showed normal appendix; left lower quadrant 6.6 x 2.7 x 6.0 cm ventral hernia containing mesenteric fat and small bowel loops with inflammatory changes suggesting an element of strangulation/incarceration. Findings were discussed with the patient. The patient denied pain, tenderness over the hernia area. The hernia is soft, reducible. I spoke with Dr. Juarez for surgery; the patient is able to follow up in the office. Follow up with pcp and surgery for a recheck, further evaluation and treatment. Differential Diagnosis Differential diagnosis: Likely abdominal pain, acute appendicitis, calculus of kidney, diverticulitis and small bowel obstruction Medical Records Attestation: I reviewed the patient's medical records. Lab Data Attestation: I reviewed the patient's lab results. Labs: Lab Results 02/19/24 02/19/24 Range/Units 14:44 14:45 WBC 14.5 H (4.0-11.0) 10^3/uL RBC 4.89 (4.20-5.40) 10^6/uL Hgb 13.2 (12.0-16.0) g/dL Hct 41.2 (36.0-48.0) % MCV 84.3 (81.0-99.0) fL MCH 27.0 (26.7-34.0) pg MCHC 32.0 (29.9-35.2) g/dL RDW 14.6 (11.0-15.0) % Plt Count 378 (150-450) 10^3/uL MPV 10.3 (9.5-13.5) fL Neut % (Auto) 77.2 H (43.0-75.0) % Lymph % (Auto) 16.8 L (20.5-60.0) % [place] % (Auto) 4.6 (1.7-12.0) % Eos % (Auto) 0.8 L (0.9-7.0) % Baso % (Auto) 0.3 (0.2-2.0) % Neut # (Auto) 11.2 H (1.4-6.5) 10^3/uL Lymph # (Auto) 2.4 (1.2-3.8) 10^3/uL [place] # (Auto) 0.7 (0.3-0.8) 10^3/uL Eos # (Auto) 0.1 (0.0-0.7) 10^3/uL Baso # (Auto) 0.1 (0.0-0.1) 10^3/uL Abs Immat Gran (auto) 0.05 H (0.00-0.03) 10^3/uL Imm/Tot Granulo (auto) 0.3 (0.0-0.5) % Sodium 140 (136-145) mmol/L Potassium 4.0 (3.5-5.1) mmol/L Chloride 103 (98-107) mmol/L Carbon Dioxide 27.1 (21.0-32.0) mmol/L Anion Gap 13.9 BUN 11.0 (7.0-18.0) mg/dL Creatinine 0.99 (0.55-1.02) mg/dL Est GFR ( Amer) >60 (>=60 mL/min/1.73m^2) Est GFR (Non-Af Amer) >60 (>=60 mL/min/1.73m^2) BUN/Creatinine Ratio 11.1 Glucose 116 H (74-106) mg/dL Lactate 1.0 (0.4-2.0) mmol/L Calcium 9.1 (8.5-10.1) mg/dL Total Bilirubin 0.7 (0.2-1.0) mg/dL AST 19 (15-37) U/L ALT 39 (14-59) U/L Alkaline Phosphatase 97 (46-116) U/L Total Protein 7.9 (6.4-8.2) g/dL Albumin 3.4 (3.4-5.0) g/dL Globulin 4.5 g/dL Albumin/Globulin Ratio 0.8 Lipase 28.0 (16.0-77.0) U/L Urine Color Lt. yellow (YELLOW) Urine Clarity Clear (CLEAR) Urine pH 7.0 (5.0-9.0) Ur Specific [place] 1.020 (1.005-1.025) Urine Protein Negative (NEG/TRACE) mg/dL Urine Glucose (UA) Negative (NEGATIVE) mg/dL Urine Ketones Negative (NEGATIVE) mg/dL Urine Occult Blood Trace-i (NEGATIVE) Urine Nitrite Negative (NEGATIVE) Urine Bilirubin Negative (NEGATIVE) Urine Urobilinogen 0.2 (0.2-1.0) EU/dL Ur Leukocyte Esterase Negative (NEGATIVE) Urine RBC 2-5 A (0-2) #/HPF Urine WBC 0-2 A (NONE SEEN) #/HPF Ur Squamous Epith Cells Moderate A (NONE/RARE) #/LPF Urine Crystals None seen (None Seen) #/HPF Urine Bacteria Trace A (NONE SEEN) #/HPF Urine Casts None seen (NONE SEEN) #/LPF Urine Mucus None seen (NONE SEEN) Ur Culture Indicated? No Urine HCG, Qual Negative (NEGATIVE) Imaging Data CT scan - abdomen: Attestation: I have reviewed the pertinent imaging results. Radiologist's impression: ITS Impressions Abdomen/Pelvis CT 02/19/24 14:32 IMPRESSION: Left lower quadrant 6.6 x 2.7 x 6.0 cm ventral hernia containing mesenteric fat and small bowel loops with inflammatory changes suggesting an element of strangulation/incarceration Electronically authenticated by: BORIS OSHEA Date: 02/19/2024 15:28 Discharge Plan Discharge Chief Complaint: Abdominal Pain Clinical Impression: Abdominal pain, RLQ, Ventral hernia Patient Disposition: Home, Self-Care Time of Disposition Decision: 16:27 Condition: Good Mode of Transportation: Private Vehicle Prescriptions / Home Meds: No Action fexofenadine [Chary Allergy] 180 mg tablet 180 mg PO DAILY Probacap 10 billion cell capsule 100 mmu cells PO DAILY oxycodone-acetaminophen [Percocet] 5-325 mg tablet 1 tab PO Q4H PRN (Reason: abd pain) 3 Days Qty: 10 0RF ondansetron 4 mg tablet,disintegrating 4 mg PO DAILY PRN (Reason: nausea and vomiting) 4 Days Qty: 10 0RF labetalol 100 mg tablet 100 mg PO Q12H trazodone 50 mg tablet 50 mg PO BEDTIME PRN (Reason: sleep) buspirone 5 mg tablet 5 mg PO BID PRN (Reason: anxiety) Print Language: Lebanese Additional Instructions: Return to the ER for new or worsening symptoms. Referrals: Whit Ca NP [Primary Care Provider] - 1 week Davonte Juarez MD [Physician] - 1 week
[2024-02-19 14:54] LABS: Bilirubin Urine NEGATIVE (NEGATIVE); Blood Urine TRACE-I (NEGATIVE); Clarity Urine CLEAR (CLEAR); Color Urine LT. YELLOW (YELLOW); Glucose Urine UA NEGATIVE (NEGATIVE); Ketones Urine NEGATIVE (NEGATIVE); Leukocyte Esterase Urine NEGATIVE (NEGATIVE); Nitrite Urine NEGATIVE (NEGATIVE); Protein Urine NEGATIVE (NEG/TRACE); Urobilinogen Urine 0.2 EU/dL (0.2-1.0)
[2024-02-19 14:54] LABS: Basophils Absolute Auto 0.1 10^3/uL (0.0-0.1); Basophils Percent Auto 0.3 % (0.2-2.0); Eosinophils Absolute Auto 0.1 10^3/uL (0.0-0.7); Eosinophils Percent Auto 0.8 % (0.9-7.0); Hematocrit 41.2 % (36.0-48.0); Hemoglobin 13.2 g/dL (12.0-16.0); Immature Granulocytes Abs Auto 0.05 10^3/uL (0.00-0.03); Immature Granulocytes Pct Auto 0.3 % (0.0-0.5); Lymphocytes Absolute Auto 2.4 10^3/uL (1.2-3.8); Lymphocytes Percent Auto 16.8 % (20.5-60.0); Mean Corpuscular Volume 84.3 fL (81.0-99.0); Mean Platelet Volume 10.3 fL (9.5-13.5); Monocytes Absolute Auto 0.7 10^3/uL (0.3-0.8); Monocytes Percent Auto 4.6 % (1.7-12.0); Neutrophils Absolute Auto 11.2 10^3/uL (1.4-6.5); Neutrophils Percent Auto 77.2 % (43.0-75.0); Platelet Count 378 10^3/uL (150-450); Red Blood Count 4.89 10^6/uL (4.20-5.40); Red Cell Distribution Width 14.6 % (11.0-15.0); White Blood Count 14.5 10^3/uL (4.0-11.0)
[2024-02-19 14:58] LABS: HCG Qualitative Urine* NEGATIVE (NEGATIVE); Internal Control Within Normal Limits; Urine Microscopic Indicated YES
[2024-02-19 15:03] LABS: Bacteria Urine TRACE #/HPF (NONE SEEN); Cast Seen? NONE SEEN #/LPF (NONE SEEN); Crystals Seen? None Seen #/HPF (None Seen); Mucus Urine NONE SEEN (NONE SEEN); Squamous Epithelial Cell Urine MODERATE #/LPF (NONE/RARE); Urine Culture Indicated NO; WBC Urine 0-2 #/HPF (NONE SEEN)
[2024-02-19 15:08] LABS: Alanine Aminotransferase 39 U/L (14-59); Albumin Globulin Ratio 0.8; Albumin Level 3.4 g/dL (3.4-5.0); Alkaline Phosphatase 97 U/L (46-116); Anion Gap 13.9; Aspartate Amino Transferase 19 U/L (15-37); BUN Creatinine Ratio 11.1; Bilirubin Total 0.7 mg/dL (0.2-1.0); Calcium 9.1 mg/dL (8.5-10.1); Carbon Dioxide 27.1 mmol/L (21.0-32.0); Chloride 103 mmol/L (98-107); Estimated GFR (African America >60 (>=60 mL/min/1.73m^2); Estimated GFR (Non-African Ame >60 (>=60 mL/min/1.73m^2); Globulin 4.5 g/dL; Glucose 116 mg/dL (74-106); Sodium 140 mmol/L (136-145); Total Protein 7.9 g/dL (6.4-8.2)
[2024-02-19 16:32] VITALS: BP 138/64; PULSE 78; O2SAT 99
== END 2024-02-19 16:33 | disposition home or self-care (01) ==
PROVIDERS: Nurse Practitioner Family; Emergency Provider Student in an Organized Health Care Education/Training Program; PCP Nurse Practitioner
DX: K43.9 Ventral hernia without obstruction or gangrene (principal); R10.31 Right lower quadrant pain; Z90.49 Acquired absence of other specified parts of digestive tract; Z87.891 Personal history of nicotine dependence
CPT/HCPCS: 36415; 74177; 80053; 81001; 83605; 83690; 84703; 85025; 99285; Q9967

== ENCOUNTER 2024-03-16 12:58 | Outpatient (OUT) | payer BC, SELFPAY ==
--- NOTE | 2024-03-16 13:01 | US_ITS ---
The [address] [address] Patient Name: MATT RICKS MRN: [id number] date: 1990 Sex: F Assigned Patient Location: US Current Patient Location: Accession/Order Number: [id number] Exam Date: 03/16/2024 13:06 Report Date: 03/21/2024 04:36 At the request of: URSULA MONSON Procedure: US pelvis w/ transvaginal EXAMINATION: US pelvis w/ transvaginal HISTORY: POLYCYSTIC OVARIES E28.2 COMPARISON: No relevant comparison available. TECHNIQUE: Transabdominal and/or transvaginal sonographic examination was performed as indicated by examination type. FINDINGS: UTERUS: Several small nabothian cysts within swift of cervix. Normal size and contour of uterus. Uterus size: 7.3 x 3.4 x 4.5 cm ENDOMETRIUM: Normal homogeneous appearance. Endometrial thickness: 6 mm RIGHT OVARY: Normal size and appearance. Duplex Doppler demonstrates normal waveform and flow; resistive index 0.4. Ovary size: 3.5 x 2.2 x 2.1 cm LEFT OVARY: Normal size and appearance. Duplex Doppler demonstrates normal waveform and flow; resistive index 0.5. Ovary size: 2.9 x 2.4 x 2.0 cm CUL-DE-SAC: Unremarkable. No significant free fluid. BLADDER: Unremarkable. OTHER: None. US/US pelvis w/ transvaginal IMPRESSION: 1. No ultrasound evidence of polycystic ovarian syndrome. Electronically authenticated by: NIKOLAS CRISTINA Date: 03/21/2024 04:36
--- OUTSIDE RECORDS SUMMARY | 2024-03-16 13:01 | XMS_ITS | CCD ---
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 [facility] [address] [address] [address] Alexei Gonzales Bilirubin [Mass/Vol] 0.3 mg/dL Normal 0.2-1.0 [facility] Comment on above: Performed By: #### C MP #### [facility] [address] [address] [address] Alexei Gonzales Calcium [Mass/Vol] 8.9 mg/dL Normal 8.5-10.1 [facility] Comment on above: Performed By: #### C MP #### [facility] [address] [address] [address] Alexei Gonzales Chloride [Moles/Vol] 100 mmol/L Normal 98-107 [facility] Comment on above: Performed By: #### C MP #### [facility] [address] [address] [address] Alexei Gonzales CO2 [Moles/Vol] 26.4 mmol/L Normal 21.0-32.0 [facility] Comment on above: Performed By: #### C MP #### [facility] [address] [address] [address] Alexei Gonzales Creatinine [Mass/Vol] 0.98 mg/dL Normal 0.55-1.02 [facility] Comment on above: Performed By: #### C MP #### [facility] [address] [address] [address] Alexei Gonzales EGFR-AF BURUNDIAN >60 Normal >=60 [facility] Comment on above: Performed By: #### C MP #### [facility] [address] [address] [address] Alexei Gonzales EGFR-NON AF BURUNDIAN >60 Normal >=60 [facility] Comment on above: Performed By: #### C MP #### [facility] [address] [address] [address] Alexei Gonzales Globulin (S) [Mass/Vol] 4.3 g/dL Normal [facility] Comment on above: Performed By: #### C MP #### [facility] [address] [address] [address] Alexei Gonzales Glucose [Mass/Vol] 125 mg/dL Critically high 74-106 [facility] Comment on above: Performed By: #### C MP #### [facility] [address] [place] [address] Dr. Alexei Gonzales Potassium [Moles/Vol] 3.6 mmol/L Normal 3.5-5.1 [facility] Comment on above: Performed By: #### C MP #### [facility] [address] [place] [address] Dr. Alexei Gonzales Protein [Mass/Vol] 7.9 g/dL Normal 6.4-8.2 [facility] Comment on above: Performed By: #### C MP #### [facility] [address] [place] [address] Dr. Alexei Gonzales Sodium [Moles/Vol] 134 mmol/L Critically low 136-145 [facility] Comment on above: Performed By: #### C MP #### [facility] [address] [place] [address] Dr. Alexei Gonzales Urea nitrogen [Mass/Vol] 12.0 mg/dL Normal 7.0-18.0 [facility] Comment on above: Performed By: #### C MP #### [facility] [address] [place] [address] Dr. Alexei Gonzales Urea nitrogen/Creatinin e [Mass ratio] 12.2 mg/mg Normal [facility] Comment on above: Performed By: #### C MP #### [facility] [address] [place] [address] [address] [address] Alexei Gonzales STREPT SCREENon 05-13-2022 STREP SCREEN A Negative Normal NEGATIVE [facility] Comment on above: Performed By: #### C VDAGS #### [facility] [address] [place] [address] ABD/PELV WO W [...] BORIS OSHEA Date: 2022-04-15 11:19 Normal [facility] COVID/FLU/RSV RT-PCRon 04-08 SARS-CoV-2 (COVID-19) RNA CRISTEL+probe Ql (Unsp spec) Positive [facility] Other COVID/FLU/RSV RT-PCR Negative [facility] (REITW) -- RAMIN DANIELLE ([id number]) 1990 F Date Time Provider Department 01/25/22 TAIWO TORRES During your visit today, we recorded the following information about you: Erica Oscar RN 01/25/2022 9:52 AM Signed Routing to Non Jose L ivf Pool to refuse provera refill Just filled 1 weeks ago Erica Oscar RN January 25, 2022 9:52 AM Dilcia Dawn APRN.[facility] 01/25/2022 10:09 AM Signed Patient's request for [...] Encounter Status:Closed by DILCIA DAWN on 01/25/22 [facility] -- RAMIN DANIELLE ([id number]) 1990 F Date Time Provider Department 01/18/22 SISSY TEMPLE During your visit today, we recorded [...] Status:Closed by LUCIANA DENNIS on 01/18/22 Normal [facility] XR KUB 1 VIEWon 01-17-2022 XR [...] urinary tract calculi. Electronically authenticated by: NIKOLAS IBETH Date: 2022-01-17 13:05 Normal [facility] 25(OH)D3 [facility] 2021 25-hydroxyvitamin D3 [Mass/Vol] 23.4 ng/mL Low 31.0-80.0 [facility] Comment on above: Order Comment: Speci men Type: BLOOD SPECIMEN Ordering Facility: [facility] Address: [address] [place] [address] Result Comment: Clas sification of 25 [place] Vitamin D status: Deficiency/Insufficiency: < or = 30 ng/ml. Sufficiency/Optimal Levels: 31-80 ng/mL Toxicity: > 100 ng/mL. Test performed by chemiluminescent immunoassay. Performed By: #### V ZVG2, 1989-07, XOCHITL #### [facility] CLIA [id number] [address] [place] [address] OF [facility] CNOVon 12-30-2021 CNOV Office Visit (REISO) -- RAMIN DANIELLE ([id number]) 1990 F Date Time Provider Department 12/30/21 [...] which included preparing to see the patient, [id number] patient care, completing clinical documentation, obtaining and/or reviewing separately obtained history, counseling and educating the patient/family/caregiver, and ordering medications, tests, or procedures. Taiwo Torres MD letter to Dr. Longo Referring Provider: BRIANNA TREJO [[id number]] Allergies As of Date: 12/30/2021 Noted Allergy Reaction STRAWBERRIES 12/30/2021 4 - Hives Date Reviewed: 12/30/2021 Reviewed by: Cinthia Price Ma - Fully Assessed Reason for Visit: New Patient [172] Infertility [285] Primary Visit Diagnosis:Primary amenorrhea [N91.0] Order(s):TSH BLD [SQTSH] Order #: [id number] FUTURE PROLACTIN BLD [SQPROL] Order #: [id number] FUTURE RUBELLA IGG AB [SQRUBQNT] Order #: [id number] FUTURE VARICELLA ZOSTER IGG [SQVZVG] Order #: [id number] FUTURE VITAMIN D 25 HYDROXY [SQVITD] Order #: [id number] FUTURE TYPE + SCREEN [SQTSCR] Order #: [id number] FUTURE FSH BLD [SQFSH] Order #: [id number] FUTURE ESTRADIOL-17B BLD [SQE2] Order #: [id number] FUTURE HGB A1C [MXECN6B] Order #: [id number] FUTURE Prescriptions as of 12/30/2021 - PNV no.95/ferrous fum/folic ac ( ORAL) Take by mouth. Problem List As Of Date: 12/30/2021 (None) Encounter Status:Closed by TAIWO TORRES on 12/30/21 Normal [facility] Estradiol SerPl-mCncon 12-30 E2 [Mass/Vol] 60 pg/mL Normal [facility] Comment on above: Order Comment: Speci men Type: BLOOD SPECIMEN Ordering Facility: [facility] Address: [address] [place] [address] Result Comment: This test is not suitable [...] 3243 pg/mL Second trimester : 1561 to 60462 pg/mL Third trimester : 8285 to >49263 pg/mL Post-menopausal Estradiol reference range: < 41 pg/mL Reference: 1. Estradiol - E2 (Estradiol III) [package insert V 3.0 Cuban]. [facility], [place], [place], October 2015. Performed By: #### 3 016-3, 40510-1, 2243-4, 2842-3 #### [facility] CLIA [id number] [address] [place] [address] STATES OF [facility] FSH SerPl-aCncon 12-30-2021 Follitropin Qn 6.4 m[IU]/mL Normal See comment [facility] Comment on above: Order Comment: Speci men Type: BLOOD SPECIMEN Ordering Facility: [facility] Address: [address] [place] [id number] Result Comment: Refe rence range: Follicular: 3.5-12.5 mIU/mL Midcycle: 4.7-21.5 mIU/mL Luteal: 1.7-7.7 mIU/mL Post Lanny: 25.8-134.8 mIU/mL Performed By: #### 3 016-3, 18295-4, 2243-4, 2842-3 #### [facility] CLIA [id number] [address] [place] [address] OF [place]EL HbA1c (Bld)on 12-30-2021 Average glucose Estimated from glycated hemoglobin (Bld) [Mass/Vol] 120 mg/dL Normal [facility] Comment on above: Order Comment: Rayne putnam Type: BLOOD SPECIMEN Ordering Facility: [facility] Address: [address] [place] [address] Result Comment: eAG: (Estimated average glucose) is a calculated value from HgbA1c and is event sales representative of the average blood glucose level in the last 2-3 month period. Performed By: #### 5 5454-3 #### [facility] CLIA [id number] [address] [place] [address] STATES OF [facility] HbA1c (Bld) [Mass fraction] 5.8 % High 4.3-5.6 [facility] Comment on above: Order Comment: Rayne putnam Type: BLOOD SPECIMEN Ordering Facility: [facility] Address: [address] [place] [address] Result Comment: [place] Diabetes Association guidelines indicate that patients with HgbA1c in the range 5.7-6.4% are at increased risk for development of diabetes, and intervention by lifestyle modification may be beneficial. HgbA1c greater or equal to 6.5% is considered diagnostic of diabetes. Performed By: #### 5 5454-3 #### [facility] [place] [id number] [address] [place] [address] STATES OF [place]EL Prolactin SerPl-mCncon 12-30 Prolactin [Mass/Vol] 10.3 ng/mL Normal 4.5-26.8 [facility] Comment on above: Order Comment: Rayne putnam Type: BLOOD SPECIMEN Ordering Facility: [facility] Address: [address] [place] [address] Result Comment: Prol actin test is performed using the [facility] Electrochemiluminescence Immunoassay method. Results obtained with different methods or kits cannot be used interchangeably. Performed By: #### 3 016-3, 28333-3, 2243-4, 2842-3 #### [facility] CLIA [id number] [address] [place] [address] STATES OF [place] RUBELLA IGG ABon 12-30-2021 RUBELLA IGG AB, QUAL Positive Normal Positive [facility] Comment on above: Order Comment: Speci men Type: BLOOD SPECIMEN Ordering Facility: [facility] Address: [address] [place] [address] Result Comment: The result suggests recent or past exposure to Rubella virus or history of Rubella vaccination. Positive result may also be seen due to presence of passively-transferred antibodies. Please correlate with patient's history. Performed By: #### V ZVG2, 1989-07, RUBIGG #### [facility] CLIA [id number] [address] [place] [address] STATES OF [place] TSH SerPl-aCncon 12-30-2021 TSH Qn 2.730 m[IU]/L Normal 0.270-4.200 [facility] Comment on above: Order Comment: Speci men Type: BLOOD SPECIMEN Ordering Facility: [facility] Address: [address] [place] [address] Result Comment: If t he patient is , TSH reference range varies by gestational period: First Trimester (weeks 9-12): 0.180-2.990 mIU/L Second Trimester: 0.110-3.980 mIU/L Third Trimester: 0.480-4.710 mIU/L Soham Joaquin et al. A Practical Approach for the Verifications and Determination of Site- and Trimester-Specific Reference Intervals for Thyroid Function tests in . Thyroid, 2019:29:3:412-420. Tavares E, et al. 2017 Guidelines of the [place] Thyroid Association for the Diagnosis and Management of Thyroid Disease during and the . Thyroid, 2017:27:3:315-389. Performed By: #### 3 016-3, 65853-3, 2243-4, 2842-3 #### [facility] CLIA [id number] [address] [place] [address] [place] TYPE + SCREENon 12-30-2021 HISTORICAL AB SCR STATUS Negative Normal [facility] Comment on above: Order Comment: Speci men Type: BLOOD SPECIMENOrdering Facility: [facility] Address: [address] [place] [address] Performed By: #### T SCR ####[facility] [id number] [address] OF [place] TYPE AND SCREEN EXPIRATION 01/02/2022 23:59 Normal [facility] Comment on above: Order Comment: Speci men Type: BLOOD SPECIMENOrdering Facility: [facility] Address: [address] [place] [address] Performed By: #### T SCR ####[facility] [id number] [address] VARICELLA ZOSTER IGGon 12-30 VARICELLA ZOSTER IGG, QUAL Positive Normal Positive [facility] Comment on above: Order Comment: Speci men Type: BLOOD SPECIMEN Ordering Facility: [facility] Address: [address] [place] [address] Result Comment: The result suggests recent or past exposure to Varicella-Zoster virus or chickenpox vaccination or zoster vaccination. Positive result may also be seen due to presence of passively-transferred antibodies. Please correlate with patient's history. Performed By: #### V ZVG2, 1988-3, RUBIGG #### [facility] CLIA [id number] [address] [place], [place] [address] CULTURE URINEon 12-21-2021 CULTURE URINE Culture Observations : LIGHT GROWTH OF MIXED GENITAL ANTONIO. NO POTENTIAL PATHOGENS SEEN. Normal [facility] Comment on above: Performed By: #### C VDAGS #### [facility] [address] [place] [address] [address] [address] Alexei Gonzales UA RANDOM W/MICROSCOPICon BACTERIA TRACE Abnormal NONE SEEN [facility] Comment on above: Performed By: #### C BC #### [facility] [address] [place] [address] Dr. Alexei Gonzales Bilirubin Ql (U) Negative Normal NEGATIVE [facility] Comment on above: Performed By: #### C BC #### [facility] [address] [place] [address] Dr. Alexei Gonzales CAST NONE SEEN Normal NONE SEEN [facility] Comment on above: Performed By: #### C BC #### [facility] [address] [place] [address] Dr. Alexei Gonzales Clarity (U) CLEAR Normal CLEAR [facility] Comment on above: Performed By: #### C BC #### [facility] [address] [place] [address] Dr. Alexei Gonzales Color (U) YELLOW Normal YELLOW [facility] Comment on above: Performed By: #### C BC #### [facility] [address] [place] [address] Dr. Alexei Gonzales Crystals LM Nom (Urine sed) NONE SEEN Normal NONE SEEN [facility] Comment on above: Performed By: #### C BC #### [facility] [address] [place] [address] Dr. Alexei Gonzales Epithelial cells LM Ql (Urine sed) FEW Abnormal NONE SEEN /RARE [facility] Comment on above: Performed By: #### C BC #### [facility] [address] [place] [address] Dr. Alexei Gonzales Glucose Ql (U) Negative Normal NEGATIVE [facility] Comment on above: Performed By: #### C BC #### [facility] [address] [place] [address] Dr. Alexei Gonzales Hemoglobin Ql (U) TRACE-LYSED Abnormal NEGATIVE [facility] Comment on above: Performed By: #### C BC #### [facility] [address] [place] [address] Dr. Alexei Gonzales Ketones Ql (U) Negative Normal NEGATIVE [facility] Comment on above: Performed By: #### C BC #### [facility] [address] [place] [address] Dr. Alexei Gonzales LEUKOCYTES Negative Normal NEGATIVE [facility] Comment on above: Performed By: #### C BC #### [facility] [address] [place] [address] Dr. Alexei Gonzales MUCOUS NONE SEEN Normal NONE SEEN [facility] Comment on above: Performed By: #### C BC #### [facility] [address] [place] [address] Dr. Alexei Gonzlaes Nitrite Ql (U) Negative Normal NEGATIVE [facility] Comment on above: Performed By: #### C BC #### [facility] [address] [place] [address] Dr. Alexei Gonzales pH (U) 6.0 [pH] Normal 5-9 [facility] Comment on above: Performed By: #### C BC #### [facility] [address] [place] [address] Dr. Alexei Gonzales RBC 2-5 Abnormal 0-2 [facility] Comment on above: Performed By: #### C BC #### [facility] [address] [place] [address] Dr. Alexei Gonzales SPEC GRAVITY >=1.030 Abnormal 1.005-<=1.0 25 [facility] Comment on above: Performed By: #### C BC #### [facility] [address] [place] [address] Dr. Alexei Gonzales UA PROTEIN Negative Normal NEGATIVE/ TRACE [facility] Comment on above: Performed By: #### C BC #### [facility] [address] [place] [address] Dr. Alexei Gonzales Urobilinogen Qn (U) 0.2 {Albin'U}/dL Normal 0.2 - 1.0 [facility] Comment on above: Performed By: #### C BC #### [facility] [address] [place] [address] Dr. Alexei Gonzales WBC 0-2 Abnormal NONE SEEN [facility] Comment on above: Performed By: #### C BC #### [facility] [address] [place] [address] Dr. Alexei Gonzales CBC AUTO DIFFon 11-30-2021 BASO # 0.1 103/ul Normal 0.0-0.1 [facility] Comment on above: Performed By: #### C VDAGS #### [facility] [address] [place] [address] Dr. Alexei Gonzales Basophils/100 WBC (Bld) 0.4 % Normal 0.2-2.0 [facility] Comment on above: Performed By: #### C VDAGS #### [facility] [address] [place] [address] Dr. Alexei Gonzales EO # 0.2 103/ul Normal 0.0-0.7 [facility] Comment on above: Performed By: #### C VDAGS #### [facility] [address] [place] [address] Dr. Alexei Gonzales Eosinophils/100 WBC (Bld) 1.9 % Normal 0.9-7.0 [facility] Comment on above: Performed By: #### C VDAGS #### [facility] [address] [place] [address] Dr. Alexei Gonzales Erythrocyte distribution width (RBC) [Ratio] 13.3 % Normal 11.0-15.0 [facility] Comment on above: Performed By: #### C VDAGS #### [facility] [address] [place] [address] Dr. Alexei Gonzales Hematocrit (Bld) [Volume fraction] 40.8 % Normal 36.0-48.0 [facility] Comment on above: Performed By: #### C VDAGS #### [facility] [address] [place] [address] Dr. Alexei Gonzales Hemoglobin (Bld) [Mass/Vol] 13.0 g/dL Normal 12.0-16.0 [facility] Comment on above: Performed By: #### C VDAGS #### [facility] [address] [place] [address] Dr. Alexei Gonzales IG # 0.05 10e3/ul Critically high 0.00-0.03 [facility] Comment on above: Performed By: #### C VDAGS #### [facility] [address] [place] [address] Dr. Alexei Gonzales IG % 0.4 % Normal 0.0-0.5 [facility] Comment on above: Performed By: #### C VDAGS #### [facility] [address] [place] [address] Dr. Alexei Gonzales LYMPH # 3.4 103/ul Normal 1.2-3.8 [facility] Comment on above: Performed By: #### C VDAGS #### [facility] [address] [place] [address] Dr. Alexei Gonzales Lymphocytes/100 WBC (Bld) 29.1 % Normal 20.5-60.0 [facility] Comment on above: Performed By: #### C VDAGS #### [facility] [address] [place] [address] Dr. Alexei Gonzales MANUAL DIFF REQ NO Normal [facility] Comment on above: Performed By: #### C VDAGS #### [facility] [address] [place] [address] Dr. Alexei Gonzales MCH (RBC) [Entitic mass] 27.3 pg Normal 26.7-34.0 [facility] Comment on above: Performed By: #### C VDAGS #### [facility] [address] [place] [address] Dr. Alexei Gonzales MCHC (RBC) [Mass/Vol] 31.9 g/dL Normal 29.9-35.2 [facility] [facility] Comment on above: Performed By: #### C VDAGS #### [facility] [address] [place] [address] Dr. Alexei Gonzales MCV (RBC) [Entitic vol] 85.5 fL Normal 81.0-99.0 [facility] Comment on above: Performed By: #### C VDAGS #### [facility] [address] [place] [address] Dr. Alexei Gonzales MONO # 0.7 103/ul Normal 0.3-0.8 [facility] Comment on above: Performed By: #### C VDAGS #### [facility] [address] [place] [address] Dr. Alexei Gonzales Monocytes/100 WBC (Bld) 5.9 % Normal 1.7-12.0 [facility] Comment on above: Performed By: #### C VDAGS #### [facility] [address] [address] [address] Alexei Gonzales NEUT # 7.4 103/ul Critically high 1.4-6.[address] [facility] Comment on above: Performed By: #### C VDAGS #### [facility] [address] [place] [address] Dr. Alexei Gonzales Neutrophils/100 WBC (Bld) 62.3 % Normal 43.0-75.0 [facility] Comment on above: Performed By: #### C VDAGS #### [facility] [address] [place] [address] Dr. Alexei Gonzales Platelet mean volume (Bld) [Entitic vol] 10.4 fL Normal 9.5-13.5 [facility] Comment on above: Performed By: #### C VDAGS #### [facility] [address] [place] [address] Dr. Alexei Gonzales PLT 319 103/ul Normal 150-450 [facility] Comment on above: Performed By: #### C VDAGS #### [facility] [address] [place] [address] Dr. Alexei Gonzales RBC 4.77 106/ul Normal 4.20-5.40 [facility] Comment on above: Performed By: #### C VDAGS #### [facility] [address] [place] [address] Dr. Alexei Gonzales WBC 11.8 103/ul Critically high 4.0-11.0 [facility] Comment on above: Performed By: #### C VDAGS #### [facility] [address] [place] [address] Dr. Alexei Gonzales FREE T4on 11-30-2021 Free T4 [Mass/Vol] 1.20 ng/dL Normal 0.76-1.46 [facility] Comment on above: Performed By: #### F T4 #### [facility] [address] [address] [address] Alexei Gonzales GLYCOHEMOGLOBIN A1Con 2021 ADA RECOMMENDATION SEE BELOW Normal [facility] Comment on above: Result Comment: ADA RECOMMENDED LIMIT 4.0 - 6.0 ADA THERAPEUTIC TARGET < 7.0 ACTION SUGGESTED > 7.0 Performed By: #### A 1C #### [facility] [address] [place] [address] Dr. Alexei Gonzales Glucose [Mass/Vol] 126 mg/dL Normal [facility] Comment on above: Performed By: #### A 1C #### [facility] [address] [place] [address] Dr. Alexei Gonzales HbA1c (Bld) [Mass fraction] 6.0 % Normal 4.5-6.2 [facility] Comment on above: Performed By: #### A 1C #### [facility] [address] [place] [address] Dr. Alexei Gonzales LIPID PROFILEon 11-30-2021 CHOL-HDL RATIO NORM SEE BELOW Normal [facility] Comment on above: Result Comment: 3.3 - 4.4 LOW RISK 4.4 - 7.1 AVERAGE RISK 7.1 - 11.0 MODERATE RISK >11.0 HIGH RISK Performed By: #### L IPID, CMP, TSH #### [facility] [address] [place] [address] Dr. Alexei Gonzales Cholesterol [Mass/Vol] 180 mg/dL Normal <=200 [facility] Comment on above: Performed By: #### L IPID, CMP, TSH #### [facility] [address] [place] [address] Dr. Alexei Gonzales Cholesterol in HDL [Mass/Vol] 40 mg/dL Normal 40-60 [facility] Comment on above: Performed By: #### L IPID, CMP, TSH #### [facility] [address] [place] [address] Dr. Alexei Gonzales Cholesterol in LDL [Mass/Vol] 114.4 mg/dL Normal [facility] Comment on above: Performed By: #### L IPID, CMP, TSH #### [facility] [address] [place] [address] Dr. Alexei Gonzales Cholesterol.total/ Cholesterol in HDL [Mass ratio] 4.5 {ratio} Normal [facility] Comment on above: Performed By: #### L IPID, CMP, TSH #### [facility] [address] [place] [address] Dr. Alexei Gonzales HDL NORMAL > or = 60 mg/dl - LO W CARDIOVASCULAR RISK <40 mg/dl - HIGH CARDIOVASCULAR RISK Normal [facility] Comment on above: Performed By: #### L IPID, CMP, TSH #### [facility] [address] [place] [address] Dr. Alexei Gonzales LDL CALC NORMAL SEE BELOW Normal [facility] Comment on above: Result Comment: <100 mg/dl OPTIMAL 100 - 129 mg/dl NEAR OR ABOVE OPTIMAL 130 - 159 mg/dl BORDERLINE HIGH 160 - 189 mg/dl HIGH >190 mg/dl VERY HIGH Performed By: #### L IPID, CMP, TSH #### [facility] [address] [place] [address] Dr. Alexei Gonzales Triglyceride [Mass/Vol] 128 mg/dL Normal <=150 [facility] Comment on above: Performed By: #### L IPID, CMP, TSH #### [facility] [address] [place] [address] Dr. Alexei Gonzales VLDL CALC 25.6 mg/dL Normal [facility] Comment on above: Performed By: #### L IPID, CMP, TSH #### [facility] [address] [place] [address] Dr. Alexei Gonzales PROF 14(COMP METB)on 022 Albumin [Mass/Vol] 3.4 g/dL Normal 3.4-5.0 [facility] Comment on above: Performed By: #### L IPID, CMP, TSH #### [facility] [address] [place] [address] Dr. Alexei Gonzales Albumin/Globulin [Mass ratio] 0.9 {ratio} Normal [facility] Comment on above: Performed By: #### L IPID, CMP, TSH #### [facility] [address] [place] [address] Dr. Alexei Gonzales ALP [Catalytic activity/Vol] 81 U/L Normal 46-116 [facility] Comment on above: Performed By: #### L IPID, CMP, TSH #### [facility] [address] [address] [address] Alexei Gonzales ALT [Catalytic activity/Vol] 41 U/L Normal 14-59 [facility] Comment on above: Performed By: #### L IPID, CMP, TSH #### [facility] [address] [address] [address] Alexei Gonzales Anion gap [Moles/Vol] 10.6 mmol/L Normal [facility] Comment on above: Performed By: #### L IPID, CMP, TSH #### [facility] [address] [place] [address] Dr. Alexei Gonzales AST [Catalytic activity/Vol] 22 U/L Normal 15-37 [facility] Comment on above: Performed By: #### L IPID, CMP, TSH #### [facility] [address] [place] [address] Dr. Alexei Gonzales Bilirubin [Mass/Vol] 0.4 mg/dL Normal 0.2-1.0 [facility] Comment on above: Performed By: #### L IPID, CMP, TSH #### [facility] [address] [place] [address] Dr. Alexei Gonzales Calcium [Mass/Vol] 9.1 mg/dL Normal 8.5-10.1 [facility] Comment on above: Performed By: #### L IPID, CMP, TSH #### [facility] [address] [place] [address] Dr. Alexei Gonzales Chloride [Moles/Vol] 105 mmol/L Normal 98-107 [facility] Comment on above: Performed By: #### L IPID, CMP, TSH #### [facility] [address] [place] [address] Dr. Alexei Gonzales CO2 [Moles/Vol] 25.6 mmol/L Normal 21.0-32.0 [facility] Comment on above: Performed By: #### L IPID, CMP, TSH #### [facility] [address] [address] [address] Alexei Gonzales Creatinine [Mass/Vol] 0.84 mg/dL Normal 0.55-1.02 [facility] Comment on above: Performed By: #### L IPID, CMP, TSH #### [facility] [address] [address] [address] Alexei Gonzales EGFR-AF BURUNDIAN >60 Normal >=60 [facility] Comment on above: Performed By: #### L IPID, CMP, TSH #### [facility] [address] [address] [address] Alexei Gonzales EGFR-NON AF BURUNDIAN >60 Normal >=60 [facility] Comment on above: Performed By: #### L IPID, CMP, TSH #### [facility] [address] [address] [address] Alexei Gonzales Globulin (S) [Mass/Vol] 4.0 g/dL Normal [facility] Comment on above: Performed By: #### L IPID, CMP, TSH #### [facility] [address] [address] [address] Alexei Gonzales Glucose [Mass/Vol] 113 mg/dL Critically high 74-106 [facility] Comment on above: Performed By: #### L IPID, CMP, TSH #### [facility] [address] [address] [address] Alexei Gonzales Potassium [Moles/Vol] 4.2 mmol/L Normal 3.5-5.1 [facility] Comment on above: Performed By: #### L IPID, CMP, TSH #### [facility] [address] [address] [address] Alexei Gonzales Protein [Mass/Vol] 7.4 g/dL Normal 6.4-8.2 [facility] Comment on above: Performed By: #### L IPID, CMP, TSH #### [facility] [address] [address] [address] Alexei Gonzales Sodium [Moles/Vol] 137 mmol/L Normal 136-145 [facility] Comment on above: Performed By: #### L IPID, CMP, TSH #### [facility] [address] [place] [address] Dr. Alexei Gonzales Urea nitrogen [Mass/Vol] 14.0 mg/dL Normal 7.0-18.0 [facility] Comment on above: Performed By: #### L IPID, CMP, TSH #### [facility] [address] [place] [address] Dr. Alexei Gonzales Urea nitrogen/Creatinin e [Mass ratio] 16.7 mg/mg Normal [facility] Comment on above: Performed By: #### L IPID, CMP, TSH #### [facility] [address] [place] [address] Dr. Alexei Gonzales TSHon 11-30-2021 TSH 1.150 uIU/mL Normal 0.358-3.740 [facility] Comment on above: Performed By: #### L IPID, CMP, TSH #### [facility] [address] [place] [address] Dr. Alexei Gonzales UA RANDOM W/MICROSCOPICon BACTERIA SMALL Abnormal NONE SEEN [facility] Comment on above: Performed By: #### C BC #### [facility] [address] [place] [address] Dr. Alexei Gonzales Bilirubin Ql (U) Negative Normal NEGATIVE [facility] Comment on above: Performed By: #### C BC #### [facility] [address] [place] [address] Dr. Alexei Gonzales CAST NONE SEEN Normal NONE SEEN [facility] Comment on above: Performed By: #### C BC #### [facility] [address] [place] [address] Dr. Alexei Gonzales Clarity (U) CLEAR Normal CLEAR [facility] Comment on above: Performed By: #### C BC #### [facility] [address] [place] [address] Dr. Alexei Gonzales Color (U) YELLOW Normal YELLOW [facility] Comment on above: Performed By: #### C BC #### [facility] [address] [place] [address] Dr. Alexei Gonzales Crystals LM Nom (Urine sed) NONE SEEN Normal NONE SEEN [facility] Comment on above: Performed By: #### C BC #### [facility] [address] [place] [address] Dr. Alexei Gonzales Epithelial cells LM Ql (Urine sed) MODERATE Abnormal NONE SEEN /RARE [facility] Comment on above: Performed By: #### C BC #### [facility] [address] [address] [address] Alexei Gonzales Glucose Ql (U) Negative Normal NEGATIVE [facility] Comment on above: Performed By: #### C BC #### [facility] [address] [place] [address] Dr. Alexei Gonzales Hemoglobin Ql (U) TRACE-INTACT Abnormal NEGATIVE [facility] Comment on above: Performed By: #### C BC #### [facility] [address] [place] [address] Dr. Alexei Gonzales Ketones Ql (U) TRACE Abnormal NEGATIVE [facility] Comment on above: Performed By: #### C BC #### [facility] [address] [address] [address] Alexei Gonzales LEUKOCYTES Negative Normal NEGATIVE [facility] Comment on above: Performed By: #### C BC #### [facility] [address] [place] [address] Dr. Alexei Gonzales MUCOUS TRACE Abnormal NONE SEEN [facility] Comment on above: Performed By: #### C BC #### [facility] [address] [place] [address] Dr. Alexei Gonzales Nitrite Ql (U) Negative Normal NEGATIVE [facility] Comment on above: Performed By: #### C BC #### [facility] [address] [place] [address] Dr. Alexei Gonzales pH (U) 5.5 [pH] Normal 5-9 [facility] Comment on above: Performed By: #### C BC #### [facility] [address] [place] [address] Dr. Alexei Gonzales RBC 2-5 Abnormal 0-2 [facility] Comment on above: Performed By: #### C BC #### [facility] [address] [place] [address] Dr. Alexei Gonzales SPEC GRAVITY >=1.030 Abnormal 1.005-<=1.0 25 [facility] Comment on above: Performed By: #### C BC #### [facility] [address] [place] [address] Dr. Alexei Gonzales UA PROTEIN Negative Normal NEGATIVE/ TRACE [facility] Comment on above: Performed By: #### C BC #### [facility] [address] [place] [address] Dr. Alexei Gonzales Urobilinogen Qn (U) 0.2 {Albin'U}/dL Normal 0.2 - 1.0 [facility] Comment on above: Performed By: #### C BC #### [facility] [address] [place] [address] Dr. Alexei Gonzales WBC 2-5 Abnormal NONE SEEN [facility] Comment on above: Performed By: #### C BC #### [facility] [address] [place] [address] Dr. Alexei Gonzales CBC AUTO DIFFon 11-22-2021 BASO # 0.1 103/ul Normal 0.0-0.1 [facility] Comment on above: Performed By: #### C BC #### [facility] [address] [place] [address] Dr. Alexei Gonzales Basophils/100 WBC (Bld) 0.4 % Normal 0.2-2.0 [facility] Comment on above: Performed By: #### C BC #### [facility] [address] [place] [address] Dr. Alexei Gonzales EO # 0.2 103/ul Normal 0.0-0.7 [facility] Comment on above: Performed By: #### C BC #### [facility] [address] [place] [address] Dr. Alexei Gonzales Eosinophils/100 WBC (Bld) 1.4 % Normal 0.9-7.0 [facility] Comment on above: Performed By: #### C BC #### [facility] [address] [place] [address] Dr. Alexei Gonzales Erythrocyte distribution width (RBC) [Ratio] 13.2 % Normal 11.0-15.0 [facility] Comment on above: Performed By: #### C BC #### [facility] [address] [place] [address] Dr. Alexei Gonzlaes Hematocrit (Bld) [Volume fraction] 38.8 % Normal 36.0-48.0 [facility] Comment on above: Performed By: #### C BC #### [facility] [address] [place] [address] Dr. Alexei Gonzales Hemoglobin (Bld) [Mass/Vol] 12.6 g/dL Normal 12.0-16.0 [facility] Comment on above: Performed By: #### C BC #### [facility] [address] [place] [address] Dr. Alexei Gonzales IG # 0.04 10e3/ul Critically high 0.00-0.03 [facility] Comment on above: Performed By: #### C BC #### [facility] [address] [place] [address] Dr. Alexei Gonzales IG % 0.3 % Normal 0.0-0.5 [facility] Comment on above: Performed By: #### C BC #### [facility] [address] [place] [address] Dr. Alexei Gonzales LYMPH # 3.4 103/ul Normal 1.2-3.8 [facility] Comment on above: Performed By: #### C BC #### [facility] [address] [place] [address] Dr. Alexei Gonzales Lymphocytes/100 WBC (Bld) 26.9 % Normal 20.5-60.0 [facility] Comment on above: Performed By: #### C BC #### [facility] [address] [place] [address] Dr. Alexei Gonzales MANUAL DIFF REQ NO Normal [facility] Comment on above: Performed By: #### C BC #### [facility] [address] [place] [address] Dr. Alexei Gonzales MCH (RBC) [Entitic mass] 27.3 pg Normal 26.7-34.0 [facility] Comment on above: Performed By: #### C BC #### [facility] [address] [address] [address] Alexei Gonzales MCHC (RBC) [Mass/Vol] 32.5 g/dL Normal 29.9-35.2 [facility] Comment on above: Performed By: #### C BC #### [facility] [address] [address] [address] Alexei Gonzales MCV (RBC) [Entitic vol] 84.2 fL Normal 81.0-99.0 [facility] Comment on above: Performed By: #### C BC #### [facility] [address] [place] [address] Dr. Alexei Gonzales MONO # 0.6 103/ul Normal 0.3-0.8 [facility] Comment on above: Performed By: #### C BC #### [facility] [address] [place] [address] Dr. Alexei Gonzales Monocytes/100 WBC (Bld) 5.1 % Normal 1.7-12.0 [facility] Comment on above: Performed By: #### C BC #### [facility] [address] [place] [address] Dr. Alexei Gonzales NEUT # 8.3 103/ul Critically high 1.4-6.5 [facility] Comment on above: Performed By: #### C BC #### [facility] [address] [place] [address] Dr. Alexei Gonzales Neutrophils/100 WBC (Bld) 65.9 % Normal 43.0-75.0 [facility] Comment on above: Performed By: #### C BC #### [facility] [address] [address] [address] Alexei Gonzales Platelet mean volume (Bld) [Entitic vol] 10.1 fL Normal 9.5-13.5 [facility] Comment on above: Performed By: #### C BC #### [facility] [address] [place] [address] Dr. Alexei Gonzales PLT 373 103/ul Normal 150-450 [facility] Comment on above: Performed By: #### C BC #### [facility] [address] [place] [address] Dr. Alexei Gnozales RBC 4.61 106/ul Normal 4.20-5.40 [facility] Comment on above: Performed By: #### C BC #### [facility] [address] [place] [address] Dr. Alexei Gonzales WBC 12.5 103/ul Critically high 4.0-11.0 [facility] Comment on above: Performed By: #### C BC #### [facility] [address] [place] [address] Dr. Alexei Gonzales PREG HCG QUALon 11-22-2021 , QUAL Negative Normal NEGATIVE [facility] Comment on above: Performed By: #### C BC #### [facility] [address] [place] [address] Dr. Alexei Gonzales PROF 14(COMP METB)on 022 Albumin [Mass/Vol] 3.3 g/dL Critically low 3.4-5.0 [facility] Comment on above: Performed By: #### C BC #### [facility] [address] [place] [address] Dr. Alexei Gonzales Albumin/Globulin [Mass ratio] 0.8 {ratio} Normal [facility] Comment on above: Performed By: #### C BC #### [facility] [address] [place] [address] Dr. Alexei Gonzales ALP [Catalytic activity/Vol] 89 U/L Normal 46-116 [facility] Comment on above: Performed By: #### C BC #### [facility] [address] [place] [address] Dr. Alexei Gonzales ALT [Catalytic activity/Vol] 43 U/L Normal 14-59 [facility] Comment on above: Performed By: #### C BC #### [facility] [address] [place] [address] Dr. Alexei Gonzales Anion gap [Moles/Vol] 13.4 mmol/L Normal [facility] Comment on above: Performed By: #### C BC #### [facility] [address] [place] [address] Dr. Alexei Gonzales AST [Catalytic activity/Vol] 17 U/L Normal 15-37 [facility] Comment on above: Performed By: #### C BC #### [facility] [address] [place] [address] Dr. Alexei Gonzales Bilirubin [Mass/Vol] 0.3 mg/dL Normal 0.2-1.0 [facility] Comment on above: Performed By: #### C BC #### [facility] [address] [place] [address] Dr. Alexei Gonzales Calcium [Mass/Vol] 8.9 mg/dL Normal 8.5-10.1 [facility] Comment on above: Performed By: #### C BC #### [facility] [address] [place] [address] Dr. Alexei Gonzales Chloride [Moles/Vol] 103 mmol/L Normal 98-107 [facility] Comment on above: Performed By: #### C BC #### [facility] [address] [place] [address] Dr. Alexei Gonzales CO2 [Moles/Vol] 26.4 mmol/L Normal 21.0-32.0 [facility] Comment on above: Performed By: #### C BC #### [facility] [address] [place] [address] Dr. Alexei Gonzales Creatinine [Mass/Vol] 0.91 mg/dL Normal 0.55-1.02 [facility] Comment on above: Performed By: #### C BC #### [facility] [address] [place] [address] Dr. Alexei Gonzales EGFR-AF BURUNDIAN >60 Normal >=60 [facility] Comment on above: Performed By: #### C BC #### [facility] [address] [place] [address] Dr. Alexei Gonzales EGFR-NON AF BURUNDIAN >60 Normal >=60 [facility] Comment on above: Performed By: #### C BC #### [facility] [address] [address] [address] Alexei Gonzales Globulin (S) [Mass/Vol] 4.1 g/dL Normal [facility] Comment on above: Performed By: #### C BC #### [facility] [address] [address] [address] Alexei Gonzales Glucose [Mass/Vol] 151 mg/dL Critically high 74-106 [facility] Comment on above: Performed By: #### C BC #### [facility] [address] [address] [address] Alexei Gonzales Potassium [Moles/Vol] 3.8 mmol/L Normal 3.5-5.1 [facility] Comment on above: Performed By: #### C BC #### [facility] [address] [place] [address] Dr. Alexei Gonzales Protein [Mass/Vol] 7.4 g/dL Normal 6.4-8.2 [facility] Comment on above: Performed By: #### C BC #### [facility] [address] [place] [address] Dr. Alexei Gonzales Sodium [Moles/Vol] 139 mmol/L Normal 136-145 [facility] Comment on above: Performed By: #### C BC #### [facility] [address] [place] [address] Dr. Alexei Gonzales Urea nitrogen [Mass/Vol] 12.0 mg/dL Normal 7.0-18.0 [facility] Comment on above: Performed By: #### C BC #### [facility] [address] [place] [address] Dr. Alexei Gonzales Urea nitrogen/Creatinin e [Mass ratio] 13.2 mg/mg Normal [facility] Comment on above: Performed By: #### C BC #### [facility] [address] [place] [address] Dr. Alexei Gonzales TROPONIN, HIGH SENSITIVITYon 11-22-2021 HSTROP 5.0 pg/mL Normal 4.0-51.3 [facility] Comment on above: Result Comment: CUT- OFF POINTS HAVE BEEN ESTABLISHED BASED ON THE FOURTH UNIVERSAL DEFINITIONS OF MYOCARDIAL INFARCTION. THE UPPER REFERENCE LIMIT (URL) OF TROPONIN, DEFINED THE 99TH PERCENTILE OF cTnI DISTRIBUTION IN A REFERENCE POPULATION, HAS BEEN CONFIRMED THE DECISION THRESHOLD FOR [place] DIAGNOSIS. Performed By: #### C BC #### [facility] [address] [address] [address] Alexei Gonzales XR CHEST 1 Von [...] by: LUDMILA WINKLER Date: 2021-11-21 23:31 Normal [facility] PAP ACOG PANEL 2: 30 to 65on 10-22-2021 . . Normal [facility] Comment on above: Result Comment: Perf ormed at: WB Performed By: #### [id number] #### [facility] [address] [address] [address] Alexei Gonzales Age Gdln ACOG Testing 30-65 Normal [facility] Comment on above: Performed By: #### [id number] #### [facility] [address] [address] [address] Alexei Gonzales DIAGNOSIS: Comment Normal [facility] Comment on above: Result Comment: NEGA TIVE FOR INTRAEPITHELIAL LESION OR MALIGNANCY. Performed at: WB Performed By: #### [id number] #### [facility] [address] [address] [address] Alexei Gonzales HPV Aptima Negative Normal Negative [facility] Comment on above: Result Comment: This nucleic acid amplification test detects fourteen high-risk HPV types (16,18,31,33,35,39,45,51,52,56,58,59,66,68) without differentiation. Performed at: =G Performed By: #### [id number] #### [facility] [address] [place] [address] Dr. Alexei Gonzales Methodology: Comment Normal [facility] Comment on above: Result Comment: This liquid based ThinPrep(R) pap test was screened with the use of an image guided system. Performed at: WB Performed By: #### [id number] #### [facility] [address] [place] [address] Dr. Alexei Gonzales Note: Comment Normal [facility] Comment on above: Result Comment: The Pap smear is a screening test designed to aid in the detection of premalignant and malignant conditions of the uterine cervix. It is not a diagnostic procedure and should not be used as the sole means of detecting cervical cancer. Both false-positive and false-negative reports do occur. . Performed at: WB Performed By: #### [id number] #### [facility] [address] [place] [address] Dr. Alexei Gonzales Performed by: Comment Normal [facility] Comment on above: Result Comment: Elis Oshea, Assistant Technician (ASCP) Performed at: WB Performed By: #### [id number] #### [facility] [address] [place] [address] Dr. Alexei Gonzales Specimen adequacy: Comment Normal [facility] Comment on above: Result Comment: Sati sfactory for evaluation. Endocervical and/or squamous metaplastic cells (endocervical component) are present. Performed at: WB Performed By: #### [id number] #### [facility] [address] [place] [address] Dr. Alexei Gonzales Vital Signs Date Time Vital Sign Value Performing Clinician Facility 03-06-2024 13:040 Body height 162.6 cm [employer] Phone: [facility] [employer] 03-06-2024 13:040 Body mass index (BMI) [Ratio] 48.58 kg/m2 [employer] Phone: [facility] 03-06-2024 13:040 Body weight 128.37 kg [employer] Phone: [facility] 03-06-2024 13:19-0400 Diastolic blood pressure 76 mm[Hg] Anam June DO Work Phone: [facility] 03-06-2024 13:19-0400 Heart rate 72 /min Anam June DO Work Phone: [facility] 03-06-2024 13:19-0400 Respiratory rate 14 /min Anam June DO Work Phone: [facility] 03-06-2024 13:19-0400 SaO2% (BldA) [Mass fraction] 97 % Anam June DO Work Phone: [facility] 03-06-2024 13:19-0400 Systolic blood pressure 122 mm[Hg] Anam June DO Work Phone: [facility] 03-05-2024 15:53-0400 Body height 162.6 cm Whit Roby COLLECTION SUPERVISOR Work Phone: [facility] 03-05-2024 15:53-0400 Body mass index (BMI) [Ratio] 48.65 kg/m2 Whit Desiraez COLLECTION SUPERVISOR Work Phone: [facility] 03-05-2024 15:53-0400 Body temperature 97.81 [degF] Whit Desiraez COLLECTION SUPERVISOR Work Phone: [facility] 03-05-2024 15:53-0400 Body weight 128.55 kg Whit Desiraez COLLECTION SUPERVISOR Work Phone: [facility] 03-05-2024 15:53-0400 Diastolic blood pressure 104 mm[Hg] Whit Carmenhholz COLLECTION SUPERVISOR Work Phone: [facility] 03-05-2024 15:53-0400 Heart rate 98 /min Whit Aichholz COLLECTION SUPERVISOR Work Phone: [facility] 03-05-2024 15:53-0400 Respiratory rate 20 /min Whit Aichholz COLLECTION SUPERVISOR Work Phone: [facility] 03-05-2024 15:53-0400 SaO2% (BldA) [Mass fraction] 98 % Whit Ca COLLECTION SUPERVISOR Work Phone: [facility] 03-05-2024 15:53-0400 Systolic blood pressure 144 mm[Hg] Whit Ca COLLECTION SUPERVISOR Work Phone: [facility] 02-28-2024 15:48-0400 Body height 162.6 cm Mark Josef DO Work Phone: [facility] 02-28-2024 15:48-0400 Body mass index (BMI) [Ratio] 49.23 kg/m2 Mark Josef DO Work Phone: [facility] 02-28-2024 15:48-0400 Body weight 130.09 kg Mark Josef DO Work Phone: [facility] 02-28-2024 15:48-0400 Diastolic blood pressure 86 mm[Hg] Mark Josef DO Work Phone: [facility] 02-28-2024 15:48-0400 Heart rate 88 /min Mark Josef DO Work Phone: [facility] 02-28-2024 15:48-0400 SaO2% (BldA) [Mass fraction] 100 % Mark Josef DO Work Phone: [facility] 02-28-2024 15:48-0400 Systolic blood pressure 132 mm[Hg] Mark Josef DO Work Phone: [facility] 04-08-2022 14:15-0500 Body height 162.56 cm Luciana Flores Other [employer] Other 04-08-2022 14:15-0500 Body mass index (BMI) [Ratio] 50.46 kg/m2 Luciana Flores Other [employer] Other 04-08-2022 14:15-0500 Body temperature 98.4 [degF] Luciana Flores Other [employer] Other 04-08-2022 14:15-0500 Body weight 133.36 kg Luciana Flores Other [employer] Other 04-08-2022 14:15-0500 Respiratory rate 18 /min Luciana Flores Other [employer] Other 04-08-2022 14:15-0500 SaO2% (BldA) [Mass fraction] 99 % Luciana lFores Other [employer] Other 04-04-2022 09:23-0500 Blood Pressure Location Audi ANGELA [facility] 04-04-2022 09:23-0500 Diastolic blood pressure 89 mm[Hg] Audi ANGELA [facility] 04-04-2022 09:23-0500 Heart rate 75 /min Audi ANGELA [facility] 04-04-2022 09:23-0500 Respiratory rate 16 /min Audi ANGELA [facility] 04-04-2022 09:23-0500 Systolic blood pressure 136 mm[Hg] Audi ANGELA [facility] 12-30-2021 12:56-0400 Body height 162.6 cm Taiwo Torres MD Work Phone: [facility] 12-30-2021 12:56-0400 Body weight 136.08 kg Taiwo Torres MD Work Phone: [facility] 12-30-2021 12:56-0400 Diastolic blood pressure 72 mm[Hg] Taiwo Torres MD Work Phone: [facility] 12-30-2021 12:56-0400 Systolic blood pressure 116 mm[Hg] Taiwo Torres MD Work Phone: [facility] 08-27-2021 17:50-0400 Body height 162.56 cm Luciana Flores Other [employer] Other 08-27-2021 17:50-0400 Body mass index (BMI) [Ratio] 49.77 kg/m2 Luciana Flores Other [employer] Other 08-27-2021 17:50-0400 Body temperature 97.7 [degF] Luciana Flores Other [employer] Other 08-27-2021 17:50-0400 Body weight 131.54 kg Luciana Flores Other [employer] Other 08-27-2021 17:50-0400 Respiratory rate 18 /min Luciana Flores Other [employer] Other 08-27-2021 17:50-0400 SaO2% (BldA) [Mass fraction] 98 % Luciana Flores Other [employer] Other Encounters Encounter Date Encounter Type Care Provider Facility Start: 04-26-2024 ambulatory Audi Chaudhari ty:[facility] [place] Start: 03-06-2024 End: 03-06-2024 Bamboo flowsheet [employer] DO Work Phone: [facility] [place] Start: 03-06-2024 End: 03-06-2024 Bamboo flowsheet [employer] DO Work Phone: [facility] [place] Start: 03-06-2024 End: 03-06-2024 Office outpatient visit 25 minutes [employer] DO Work Phone: [facility] [place] Comment on above: Ventral hernia witho ut obstruction or gangrene (Primary Dx) Start: 03-06-2024 End: 03-06-2024 ambulatory ANAMCHAZ JUNE Not Available Start: 03-05-2024 End: 03-05-2024 Office outpatient visit 25 minutes Whit Ca COLLECTION SUPERVISOR Work Phone: [facility] Comment on above: Ventral hernia witho ut obstruction or gangrene (Primary Dx); Pre-diabetes; Primary hypertension (CMS/HCC); Polycystic ovaries; Pelvic pain Start: 03-05-2024 End: 03-05-2024 ambulatory WHIT CA Not Available Start: 03-04-2024 End: 03-04-2024 Clinical Support Patric Valdivia [facility] Comment on above: PTSD (post-traumatic stress disorder) (CMS/HCC); Major depressive disorder, single episode, moderate with anxious distress (HCC) (CMS/HCC); Partner relationship problems Start: 03-04-2024 End: 03-04-2024 Bamboo flowsheet Patric Valdivia [facility] Start: 03-04-2024 End: 03-04-2024 Bamboo flowsheet Patric Valdivia [facility] Start: 02-28-2024 End: 02-28-2024 Office consultation new/estab patient 60 min Mark Magallanes DO Work Phone: [facility] [address] [address] Comment on above: FLAVIO (obstructive sle ep apnea) (Primary Dx); Hypersomnia; Snoring Start: 02-28-2024 End: 02-28-2024 ambulatory MARK MAGALLANES Not Available Start: 02-28-2024 End: 02-28-2024 Bamboo flowsheet Mark Josef DO Work Phone: [facility] [address] [address] Start: 02-28-2024 End: 02-28-2024 Bamboo flowsheet Mark Josef DO Work Phone: [facility] [address] Start: 02-27-2024 End: 02-27-2024 Refill Whit Ca COLLECTION SUPERVISOR Work Phone: [facility] Comment on above: Primary hypertension (CMS/HCC) Start: 02-06-2024 End: 02-06-2024 Clinical Support Rhanda Baxter [facility] Comment on above: PTSD (post-traumatic stress disorder) (CMS/HCC); Major depressive disorder, single episode, moderate with anxious distress (HCC) (CMS/HCC); Partner relationship problems Start: 02-06-2024 End: 02-06-2024 Bamboo flowsheet Rhanda Baxter [facility] Start: 02-06-2024 End: 02-06-2024 Bamboo flowsheet Rhanda Baxter [facility] Start: 01-30-2024 End: 01-30-2024 ambulatory WHIT AICHHOLZ [...] Available Start: 09-04-2023 End: 09-04-2023 ambulatory ANAM ISAEL Not Available Start: 08-29-2023 End: 08-29-2023 ambulatory NON STAFF Facility:[facility] Start: 08-29-2023 End: 08-29-2023 ambulatory PHYSICIAN [facility] Work Phone: Start: 08-29-2023 End: 08-29-2023 Departed Referred PHYSICIAN [facility] Start: 08-21-2023 End: 08-21-2023 ambulatory ANAM ISAEL Not Available Start: 08-01-2023 End: 08-01-2023 ambulatory WHIT AICHHOLZ Not Available Start: 07-12-2023 End: 07-12-2023 ambulatory ADA Randle CLAIR Not Available Start: 04-21-2023 End: 04-22-2023 ambulatory Audi ANGELA Facility:[facility] [place] Start: 09-20-2022 End: 09-20-2022 ambulatory WASH PLANT OPERATOR WHIT AICHHOLZ Facility:[facility] Start: 08-31-2022 End: 08-31-2022 ambulatory WASH PLANT OPERATOR WHIT AICHHOLZ Facility:[facility] Start: 05-13-2022 End: 05-13-2022 ambulatory WASH PLANT OPERATOR WHIT AICHHOLZ Facility:[facility] Start: 04-18-2022 End: 04-18-2022 ambulatory WASH PLANT OPERATOR WHIT AICHHOLZ Facility:[facility] Start: 04-15-2022 End: 04-16-2022 ambulatory WASH PLANT OPERATOR WHIT AICHHOLZ Facility:[facility] Start: 04-08-2022 End: 04-08-2022 ambulatory Luciana Flores Other [employer] Other Start: 04-08-2022 Office outpatient vi sit 25 minutes Luciana Flores [facility] [place] Start: 04-04-2022 End: 04-04-2022 Patient encounter procedure Audi ANGELA [facility] Start: 01-18-2022 Telephone encounter Sissy hunter MD Work Phone: [facility] Comment on above: Appointment Start: 01-17-2022 End: 01-18-2022 ambulatory WASH PLANT OPERATOR WHIT AICOlesyaHOLEddie Facility:[facility] Start: 01-14-2022 End: 01-14-2022 ambulatory Taiwo Torres MD Work Phone: [facility] Comment on above: info Primary amenorrhea ( Primary Dx) Start: 01-14-2022 E-mail encounter fro m caregiver Taiwo Torres MD Work Phone: [facility] Start: 01-14-2022 End: 01-14-2022 Telemedicine consultation with patient Taiwo Torres MD Work Phone: [facility] Start: 12-30-2021 End: 12-31-2021 ambulatory TAIWO TORRES Facility:[facility] Start: 12-30-2021 End: 12-30-2021 Patient encounter procedure Taiwo Torres MD Work Phone: [facility] Comment on above: Primary amenorrhea ( Primary Dx) Start: 12-21-2021 End: 12-22-2021 ambulatory WASH PLANT OPERATOR WHIT CA Facility:[facility] Start: 11-30-2021 End: 12-01-2021 ambulatory WASH PLANT OPERATOR WHIT CA Facility:[facility] Start: 11-22-2021 End: 11-22-[address] KIRTI CROCKETT Facility:[facility] Start: 10-19-2021 End: 10-19-[address] TIKI LONGO . Facility:[facility] Start: 08-27-2021 End: 08-27-2021 ambulatory Luciana Flores Other [employer] Other Start: 08-27-2021 Office outpatient vi sit 15 minutes Luciana Flores [facility] [place] Procedures Date Procedure Procedure Detail Performing Clinician Start: 03-05-2024 Hemoglobin glycosylated a1c Whit Ca COLLECTION SUPERVISOR Work Phone: Start: 12-30-2021 Antibody screen TAIWO TORRES Comment on above: Order Comment: Speci men Type: BLOOD SPECIMENOrdering Facility: [facility] Address: [address] [place] [address] Performed By: #### T SCR ####CC [facility] BLOOD BANKCLIA [id number] [facility] [id number] [place], [place] [id number] [place] Start: 10-19-2021 Microscopic observat ion [Identifier] in Cervix by Cyto stain Patric Valdivia [facility] Plan of Treatment Date Care Activity Detail Author Start: 10-19-2024 Screening for malign ant neoplasm of cervix [facility] Start: 08-19-2024 End: 08-19-2024 Patient encounter procedure 08/19/2024 4:00 PM EDT [facility] [address] [facility] [address] [place] [id number] Cheyenne Ahumada, [place] [address] [place] [facility] Start: 04-25-2024 End: 04-25-2024 Patient encounter procedure 04/25/2024 3:20 PM EST Office Visit [facility] [address] [place] [id number] Whit Ca, [place] [address] [place] [address] [facility] Start: 04-15-2024 End: 04-15-2024 Patient encounter procedure 04/15/2024 4:30 PM EST Procedure Visit [facility] [address] [place] [phone] Whit Ca, [place] [address] [place] [id number] [facility] Start: 03-20-2024 End: 03-20-2024 Clinical Support 03/20/2024 4:00 PM EST Clinical Support [facility] [address] [place] [address] Patric Valdivia LPC [facility] Start: 03-06-2024 End: 03-06-2024 Patient encounter procedure 03/06/2024 1:00 PM EDT Office Visit [facility] [place] [address] [place] [address] Anam June DO [address] [place] [id number] Ventral hernia without obstruction or gangrene [facility] Comment on above: Ventral hernia witho ut obstruction or gangrene Start: 03-05-2024 End: 03-05-2024 Patient encounter procedure 03/05/2024 3:40 PM EDT Office Visit [facility] [address] [place] [address] Whit Ca NP [address] [place] [address] [facility] Start: 03-05-2024 End: 03-05-2025 Basic metabolic 1998 panel - Serum or Plasma Basic metabolic panel Lab Routine Pre-diabetes Primary hypertension (CMS/HCC) Expected: 03/05/2024 (Approximate), Expires: 03/05/2025 [facility] Work Phone: Comment on above: Expected: 03/05/2024 (Approximate), Expires: 03/05/2025 Start: 03-05-2024 End: 03-05-2025 Hemoglobin A1c/Hemoglobin.total in Blood Hemoglobin A1c Lab Routine Pre-diabetes Expected: 03/05/2024 (Approximate), Expires: 03/05/2025 [facility] Comment on above: Expected: 03/05/2024 (Approximate), Expires: 03/05/2025 Start: 03-05-2024 End: 03-05-2025 US Pelvis US Pelvis w/ TV Imaging Routine Polycystic ovaries Pelvic pain Expected: 03/05/2024 (Approximate), Expires: 03/05/2025 [facility] Comment on above: Expected: 03/05/2024 (Approximate), Expires: 03/05/2025 Start: 03-04-2024 End: 03-04-2024 Clinical Support [facility] Comment on above: Arrived Start: 02-28-2024 End: 02-28-2024 Patient encounter procedure [facility] [facility] Comment on above: Arrived Start: 01-06-2022 Influenza vaccination INFLUENZA (#1) [facility] Start: 12-30-2021 End: 03-01-2022 25-hydroxyvitamin D3 [Mass/volume] in Serum or Plasma [facility] Work Phone: Comment on above: Expected: 12/30/2021 , Expires: 03/01/2022 Start: 12-30-2021 End: 03-01-2022 Estradiol (E2) [Mass/volume] in Serum or Plasma [facility] Work Phone: Comment on above: Expected: 12/30/2021 , Expires: 03/01/2022 Start: 12-30-2021 End: 03-01-2022 Follitropin [Units/volume] in Serum or Plasma [facility] Work Phone: Comment on above: Expected: 12/30/2021 , Expires: 03/01/2022 Start: 12-30-2021 End: 03-01-2022 Hemoglobin A1c in Blood [facility] Work Phone: Comment on above: Expected: 12/30/2021 , Expires: 03/01/2022 Start: 12-30-2021 End: 03-01-2022 Prolactin [Mass/volume] in Serum or Plasma [facility] Work Phone: Comment on above: Expected: 12/30/2021 , Expires: 03/01/2022 Start: 12-30-2021 End: 03-01-2022 RUBELLA IGG AB [facility] Work Phone: Comment on above: Expected: 12/30/2021 , Expires: 03/01/2022 Start: 12-30-2021 End: 03-01-2022 Thyrotropin [Units/volume] in Serum or Plasma [facility] Work Phone: Comment on above: Expected: 12/30/2021 , Expires: 03/01/2022 Start: 12-30-2021 End: 03-01-2022 TYPE + SCREEN [facility] Work Phone: Comment on above: Expected: 12/30/2021 , Expires: 03/01/2022 Start: 12-30-2021 End: 03-01-2022 VARICELLA ZOSTER IGG [facility] Work Phone: Comment on above: Expected: 12/30/2021 , Expires: 03/01/2022 Start: 01-30-2021 COVID-19 VACCINE (3 - Booster for Pfizer series) COVID-19 VACCINE (3 - Booster for Pfizer series) [facility] Start: 2019 HPV TESTING HPV TESTING [facility] Start: 2019 Screening for malign ant neoplasm of cervix HPV/Cotest [facility] Start: 2010 PAP TESTING PAP TESTING [facility] Start: 02-23-2008 Urine microalbumin profile DTAP,TDAP,TD (1 - Tdap) [facility] Start: 2007 HEPATITIS C SCREENING HEPATITIS C SC REENING [facility] Start: 2007 HIV SCREENING HIV SCREENING [facility] Start: 2001 Adult depression screening assessment DEPRESSION SCREENING [facility] Start: 1989 HEPATITIS B (1 of 3 - 3-dose series) HEPATITIS B (1 of 3 - 3-dose series) [facility] Immunizations Immunization Date Immunization Notes Care Provider Fa cility 08-30-2020 SARS-CoV-2 (COVID-19 ) mRNA BNT-162b2 jeffrey ANGELA [facility] Comment on above: Result Comment: 2021: TPVAL 08-07-2020 SARS-CoV-2 (COVID-19 ) mRNA BNT-162b2 jeffrey ANGELA [facility] Comment on above: Result Comment: 2021: TPVAL 09-21-2001 measles, mumps and rubella virus vaccine Audi ANGELA [facility] Payers Date Payer Category Payer Self-pay [id number] 2023 [facility] [id number] 2023 Unknown [id number] 2022 Unknown [id number] 2019 Unknown [id number]. 1.13.15 9.2.7.3.131803.315 1989 Unknown [id number] 2.16.840.1.847275.3.57 9.2.593 1989 Unknown [id number] 2.16.840.1.992106.3.57 9.2.593 1989 Unknown [id number] 2.16.840.1.351313.3.57 9.2.593 1989 Unknown [id number] 2.16.840.1.016078.3.57 9.2.593 1989 Unknown [id number] 2.16.840.1.524996.3.57 9.2.593 1989 Unknown [id number] 2.16.840.1.655836.3.57 9.2.593 1989 Unknown [id number] 2.16.840.1.069549.3.57 9.2.593 1989 Unknown [id number] 2.16.840.1.632955.3.57 9.2.593 1989 Unknown [id number] 2.16.840.1.089772.3.57 9.2.593 1989 Unknown [id number] 2.16.840.1.403463.3.57 9.2.593 1989 Unknown [id number] 2.16.840.1.768651.3.57 9.2.727 1989 Unknown [id number] 2.16.840.1.304242.3.57 9.2.727 1989 Unknown [id number] 2.16.840.1.372696.3.57 9.2.1259 1989 Unknown [id number] 2.16.840.1.025590.3.57 9.2.1259 1989 Unknown [id number] 2.16840.1.553276.3.57 9.2.1259 1989 Unknown [id number] 2.16840.1.660381.3.57 9.2.1259 1989 Unknown [id number] 2.16840.1.908707.3.57 9.2.1259 1989 Unknown [id number] 2.840.1.921423.3.57 9.2.1259 1989 Unknown [id number] 2.840.1.421943.3.57 9.2.1259 1989 Unknown [id number] 2.16840.1.828247.3.57 9.2.1259 1989 Unknown [id number] 2.840.1.620881.3.57 9.2.1259 1989 Unknown [id number] 2.840.1.304326.3.57 9.2.1259 1989 Unknown [id number] 2.840.1.391382.3.57 9.2.1259 1989 Unknown [id number] 2.16840.1.495810.3.57 9.2.1259 1989 Unknown [id number] 2.16840.1.269536.3.57 9.2.1259 1989 Unknown [id number] 2.16.840.1.250145.3.57 9.2.1259 1989 Unknown [id number] 2.16840.1.892566.3.57 9.2.1259 1989 Unknown [id number] 2.16840.1.664167.3.57 9.2.1259 1989 Unknown [id number] 2.16.840.1.154221.3.57 9.2.1259 1959 [facility] [id number] 2.16.840.1.062743.19 Unknown [id number] 2.16.840.1.583445.3.57 9.2.531 Social History Date Type Detail Facility Unknown if ever smoked [employer] Other Start: 07-25-2023 End: 12-27-2023 Sex Assigned At [facility] Start: 12-30-2021 End: 01-30-2024 Tobacco smoking status KSIS Ex-smoker [facility] Start: 05-08-2005 End: 05-08-2020 History of tobacco use Current smoker [facility] Start: 05-08-2005 End: 05-08-2020 History of tobacco use Cigarette Smoker [facility] Start: 12-30-2021 Tobacco use and exposure User of smokeless tobacco [facility] Start: 12-30-2021 Tobacco Comment VAPE [facility] Start: 1989 Sex Assigned At Not on file [facility] Start: 12-20-2021 End: 12-30-2021 Exposure to SARS-CoV-2 (event) Not sure [facility] Start: 1989 Sex Assigned At Female [facility] Start: 07-25-2023 End: 01-30-2024 Cigarettes smoked current (pack per day) - Reported 1.5 [facility] Start: 01-30-2024 Tobacco use and exposure Smokeless tobacco non-user [facility] Start: 01-30-2024 End: 03-06-2024 Alcoholic beverage intake Ex-drinker (finding) [facility] Do you belong to any clubs or organizations such as mosque groups, unions, fraternal or athletic groups, or [...] Status N/A [facility] Clinical Notes 08-27-2021 to 03-06-2024 Anam June, - 03/06/2024 1:00 PM Karla Ca, COLLECTION SUPERVISOR - 03/05/2024 5:02 PM Karla Ca, COLLECTION SUPERVISOR - 03/05/2024 5:02 PM Karla Ca, PALLAVI - 03/05/2024 5:00 PM EDT Note Date & Type Note Facility 03-06-2024 History of Presen t illness Narrative General Surgery H&P Ramin Danielle 1990 Ramin Danielle is a 34 y.o. female presents with chief complaint of ventral/ incisional Hernia. Chief complaint of a large ventral hernia. She recently had a CT done that showed a [id number] left periumbilical hernia with mesentery and possible bowel. She states that she is still having regular bowel movements and little to no pain. The pain is located in the middle of her abdomen and only comes If she is leaning up against a table or desk while at work. She noticed the bulge a few months ago but says she is a very stubborn individual and it hasn't been bothering her so she had not interest in getting it looked at. She only had the CT done recently because she went to the ER for RLQ pain thinking she had appendicitis. Denies fevers, chills, or sweats. Denies nausea or vomiting. Discussed need for surgery and risks for procedure. Given the size of the hernia and the patient's obesity she would best be served likely with a component separation vs TAR procedure for repair. Discussed referral to abdominal wall reconstruction specialist and she is interested. Discussed importance of returning to ER if she were to get signs or symptoms of strangulation of the hernia contents. S/p robotic cholecystectomy 08/2023. SUBJECTIVE: MEDICATIONS: ALLERGIES Current Outpatient Medications Medication Instructions busPIRone (BUSPAR) 5 mg, Oral, Every 12 hours PRN labetalol (NORMODYNE) 100 mg, Oral, 2 times daily Allergies Allergen Reactions Munford Extract Hives Other Rash Penicillin G Rash PAST MEDICAL HISTORY: SOCIAL HISTORY SURGICAL HISTORY: Past Medical History: Diagnosis Date Calculus of gallbladder without cholecystitis without obstruction 08/10/2023 Social History Tobacco Use Smoking status: Former Current packs/day: 0.00 Average packs/day: 1.5 packs/day for 15.0 years (22.5 ttl pk-yrs) Types: Cigarettes Start date: 2005 Quit date: 2020 Years since quittin.8 Smokeless tobacco: Never Vaping Use Vaping status: Every Day Substances: Nicotine, Flavoring Devices: Disposable Substance Use Topics Alcohol use: Not Currently Comment: caffine: coffee 2 daily and energy drink 2 weekly Drug use: Never Past Surgical History: Procedure Laterality Date CHOLECYSTECTOMY 08/2023 Family History Problem Relation Name Age of Onset COPD Father Isiah danielle Kidney disease Father Isiah danielle Cancer Maternal Grandmother Amanda danielle Drug abuse Sister Reta danielle Allergies Allergen Reactions Munford Extract Hives Other Rash Penicillin G Rash Past Surgical History: Procedure Laterality Date CHOLECYSTECTOMY 08/2023 Tobacco Use: Medium Risk (03/06/2024) Patient History Smoking Tobacco Use: Former Smokeless Tobacco Use: Never Passive Exposure: Not on file Alcohol Use: Not At Risk (07/25/2023) AUDIT-C Frequency of Alcohol Consumption: Monthly or less Average Number of Drinks: 1 or 2 Frequency of Binge Drinking: Never Depression: At risk (12/27/2023) PHQ-2 PHQ-2 Score: 4 Physical Activity: Insufficiently Active (07/25/2023) Exercise Vital Sign Days of Exercise per Week: 5 days Minutes of Exercise per Session: 20 min REVIEW OF SYMPTOMS: Review of Systems All other systems reviewed and are negative. 10 systems were reviewed. Positives noted above. Remainder are negative per CMS guidelines OBJECTIVE: Visit Vitals BP 122/76 Pulse 72 Resp 14 Ht 5' 4 Wt 283 lb SpO2 97% BMI 48.58 kg/m Smoking Status Former BSA 2.4 m Physical Exam Vitals reviewed. General: AAOx3, NAD Head: atraumatic normocephalic Neck: trachea midline. No masses or lymphadenopathy Heart: Regular rate and rhythm Lungs: equal chest rise and fall, non labored breathing Abdomen: soft, nontender, and non distended, large left periumbilical hernia noted with only partially reducible contents Ext: motor 5/5 all extremities with no gross deformities Psych: alert and oriented, behavior appropriate ASSESSMENT AND PLAN: Assessment/Plan Diagnoses and all orders for this visit: Ventral hernia without obstruction or gangrene - Ambulatory referral to General Surgery; Future abdominal wall reconstruction specialist Discussed importance of returning to ER if she were to get signs or symptoms of strangulation of the hernia content. Discussed need for surgery and risks for procedure. Given the size of the hernia and the patient's obesity she would best be served likely with a component separation vs TAR procedure for repair. Discussed referral to abdominal wall reconstruction specialist and she is interested. Referral made and number provided to patient to schedule an appointment. I did let her know if she is able to obtain a copy of her CT imaging to take to her referral appointment that will help. Thank you, K Edy June DO documented in this encounter [facility] 03-05-2024 History of Presen t illness Narrative Associated Problem(s): Pre-diabetes A1c 5.5% Associated Problem(s): Ventral hernia without obstruction or gangrene See CT scan, questioned if element of strangulation This is now 15 days later, no NVD, bowels moving Will refer back to dr june Associated Problem(s): Primary hypertension (CMS/HCC) Out of meds for a few weeks, they have been sent in to pharmacy Counseled pt on the importance of taking meds as directed, risks of non compliance: stroke, WA, Will flower buncher or picker script Associated Problem(s): Pelvic pain Hx PCOS, will check pelvic US No pap in some time, will have her schedule this as well Pt is still having the left side pain that comes and goes When going to the hospital for the ct- ct came out normal however they were more concerned about her hernia and was referred to a surgeon (pt does not recall who she was referred to) Images from the original note were not included. Ramin Danielle is a 34 y.o. female presents with chief complaint of No chief complaint on file. HPI: ER fu: see [facility] er notes for HPI, labs and CT scan No NVD, bowels moving no difficulty as well as urine was told to tish bull, did not make an appt, wanted to see isael, as he did her gallbladder surgery RLQ pain: intermittent, sharp, comes and goes not related to intercourse, eating, bowel movements or urination Hypertension This is a chronic problem. The current episode started more than 1 year ago. The problem has been gradually worsening since onset. The problem is uncontrolled. Associated symptoms include chest pain (occ) and headaches (occ). Pertinent negatives include no anxiety, blurred vision, malaise/fatigue, neck pain, orthopnea, palpitations, peripheral edema, PND, shortness of breath or sweats. There are no associated agents to hypertension. Risk factors for coronary artery disease include dyslipidemia, diabetes mellitus, obesity and sedentary lifestyle. Past treatments include beta blockers. The current treatment provides moderate improvement. Compliance problems: out of meds for a few weeks. SUBJECTIVE: MEDICATIONS: Current Outpatient Medications Medication Instructions busPIRone (BUSPAR) 5 mg, Oral, Every 12 hours PRN labetalol (NORMODYNE) 100 mg, Oral, 2 times daily ALLERGIES: Allergies Allergen Reactions Munford Extract Hives Other Rash Penicillin G Rash REVIEW OF SYMPTOMS: Review of Systems Constitutional: Negative for appetite change, chills, fever and malaise/fatigue. HENT: Negative for congestion, ear pain and sore throat. Eyes: Negative for blurred vision, pain, discharge, redness and visual disturbance. Respiratory: Negative for cough, shortness of breath and wheezing. Cardiovascular: Positive for chest pain (occ). Negative for palpitations, orthopnea, leg swelling and PND. Gastrointestinal: Negative for abdominal pain, blood in stool, constipation, diarrhea, nausea and vomiting. Genitourinary: Positive for pelvic pain. Negative for difficulty urinating, dysuria, flank pain and frequency. Musculoskeletal: Negative for arthralgias, back pain, joint swelling, myalgias and neck pain. Skin: Negative for rash and wound. Neurological: Positive for headaches (occ). Negative for dizziness, tremors, seizures and syncope. Psychiatric/Behavioral: Negative for behavioral problems, self-injury and suicidal ideas. The patient is not nervous/anxious. Hematological: Does not bruise/bleed easily. Endocrine: Negative for polydipsia, polyphagia and polyuria. Allergic/Immunologic: Negative for environmental allergies and food allergies. PAST MEDICAL HISTORY Past Medical History: Diagnosis Date Calculus of gallbladder without cholecystitis without obstruction 08/10/2023 No past surgical history on file. family history includes COPD in her father; Cancer in her maternal grandmother; Drug abuse in her sister; Kidney disease in her father. OBJECTIVE: Visit Vitals BP (!) 144/104 (BP Location: Left arm, Patient Position: Sitting, BP Cuff Size: Adult long) Pulse 98 Temp 97.8 F (Temporal) Resp 20 Ht 5' 4 Wt 283 lb 6.4 oz SpO2 98% BMI 48.65 kg/m Smoking Status Former BSA 2.41 m Physical Exam Vitals and nursing note reviewed. Constitutional: General: She is not in acute distress. Appearance: Normal appearance. She is obese. HENT: Head: Normocephalic and atraumatic. Right Ear: External ear normal. Left Ear: External ear normal. Nose: Nose normal. Mouth/Throat: Mouth: Mucous membranes are moist. Eyes: Extraocular Movements: Extraocular movements intact. Conjunctiva/sclera: Conjunctivae normal. Neck: Vascular: No carotid bruit. Cardiovascular: Rate and Rhythm: Normal rate and regular rhythm. Pulses: Normal pulses. Heart sounds: Normal heart sounds. Pulmonary: Effort: Pulmonary effort is normal. Breath sounds: Normal breath sounds. No wheezing or rales. Abdominal: General: Bowel sounds are normal. There is no distension. Palpations: Abdomen is soft. There is no mass. Tenderness: There is no abdominal tenderness (RLQ, no rebound/gaurding). Hernia: A hernia is present. Musculoskeletal: General: Normal range of motion. Cervical back: Normal range of motion and neck supple. Right lower leg: No edema. Left lower leg: No edema. Lymphadenopathy: Cervical: No cervical adenopathy. Skin: General: Skin is warm and dry. Capillary Refill: Capillary refill takes 2 to 3 seconds. Findings: No rash. Neurological: General: No focal deficit present. Mental Status: She is alert and oriented to person, place, and time. Psychiatric: Mood and Affect: Mood normal. Behavior: Behavior normal. Thought Content: Thought content normal. Judgment: Judgment normal. ASSESSMENT AND PLAN: No follow-ups on file. Problem List Items Addressed This Visit Polycystic ovaries Relevant Orders US Pelvis w/ TV Pre-diabetes - Primary A1c 5.5% Relevant Orders Basic metabolic panel Hemoglobin A1c POCT glycosylated hemoglobin (Hb A1C) docked device (Completed) Primary hypertension (CMS/HCC) Out of meds for a few weeks, they have been sent in to pharmacy Counseled pt on the importance of taking meds as directed, risks of non compliance: stroke, [place], Will flower buncher or picker script Relevant Orders Basic metabolic panel Ventral hernia without obstruction or gangrene See CT scan, questioned if element of strangulation This is now 15 days later, no NVD, bowels moving Will refer back to dr june Relevant Orders Ambulatory referral to General Surgery Pelvic pain Hx PCOS, will check pelvic US No pap in some time, will have her schedule this as well Relevant Orders US Pelvis w/ TV documented in this encounter [facility] 02-28-2024 History of Presen t illness Narrative Images from the original note were not included. No chief complaint on file. Subjective Ramin Danielle, 34 y.o., female being seen in Sleep Consultation at the request of Dr. Aly PATRICK The patient states that she had to have her gallbladder removed 08/2023 and during surgery she quit breathing. She was tired during the day. She was then evaluated for sleep apnea and now has a cpap machine. She went a couple of weeks without due being unable to sleep due to stress and trauma that she is now going to counseling for. She had a traumatic event at work. She is wearing it again and states that she does not have any issues with her machine. She goes to bed between 9 and 10pm. She is sleeping 6-7 hours a night. She is feeling more rested with the machine. She is having less arousals through the night. Sleep ND Patient Symptoms Snores: Yes Wakes gasping for breath: No Dozes off if inactive: No Dozes off with activity: No Wakes a lot through the night: Yes Witnessed episodes of apnea: Yes Bedtime: 9-10pm Is it hard or easy to fall asleep: Hard (45-60 mintues) Morning wake time: 5am Do you feel rested: Varies on if she is working overtime Takes naps: No Feels better after napping: Sleepwalk: No Sleeptalk: No Vivid Dreams: No Acts out dreams: No Sleep related hallucinations: No Sleep paralysis: No Cataplexy: Yes Restless Leg: Yes Kicking/Jerking at night: No TV on while sleeping: No Smoke before bed: Yes Vape Caffeine within 3 hours before bed: No CV exercise: She walks her dog she will walk for 20-25 minutes. Past Medical History: Diagnosis Date Calculus of gallbladder without cholecystitis without obstruction 08/10/2023 History reviewed. No pertinent surgical history. Family History Problem Relation Name Age of Onset COPD Father Isiah putnamjulee Kidney disease Father Isiah putnamjulee Cancer Maternal Grandmother Amanda yolande Drug abuse Sister Reta danielle Social History Tobacco Use Smoking status: Former Current packs/day: 0.00 Average packs/day: 1.5 packs/day for 15.0 years (22.5 ttl pk-yrs) Types: Cigarettes Start date: 2005 Quit date: 2020 Years since quittin.8 Smokeless tobacco: Never Substance Use Topics Alcohol use: Not Currently Comment: caffine: coffee 2 daily and energy drink 2 weekly Allergies: Munford extract, Other, and Penicillin g General: No fever or chills HEENT: No nasal congestion or runny nose Pulmonary: No shortness of breath or cough Cardiovascular: No chest pain or palpitations GI: No nausea or vomiting : No dysuria or hematuria Musculoskeletal: No new aches or pains or muscle weakness Infectious: no recurrent fevers or infections Dermatologic: No rashes or skin lesions Neurologic: No new headaches or dizziness Vitals: 02/28/24 1548 BP: 132/86 Pulse: 88 SpO2: 100% Body mass index is 49.23 kg/m . weight: 286 lb 12.8 oz Neurologic exam: General: obese, cooperative, pleasant Mental status: Awake, alert to person, place and time. Recent and remote memory are intact. Attention and concentration are normal. Fund of knowledge is appropriate for level of education. HEENT: NC/AT Cranial nerves: CN II: Visual judd full to confrontation. No loss of vision CN III, IV, : pupils equal round and reactive to light. Extraocular movements intact. No ptosis present. CN V: Facial sensation is normal. CN VII: Full and symmetric facial movement. CN VIII: Hearing is normal CN IX and X: Palate elevates symmetrically. CN XI: Shoulder shrug is normal bilaterally. CN XII: Tongue is midline without atrophy or fasciculation. Speech: Clear and fluent no aphasia or dysarthria Pronator drift: Negative bilateral upper extremity Coordination: Intact, no signs of dysmetria Good finger to nose and rapid alternating movements Sensory: Sensation is intact to light, temperature and vibratory touch throughout four extremities. Pinprick intact in all four extremities. Motor: LUE 5/5 RUE 5/5 LLE 5/5 RLE 5/5 Tone: Physiologic, no tremor, bradykinesia or rigidity DTR: Bilateral Biceps 2/4 Bilateral BR 2/4 Bilateral Patellar 2/4 No spasticity Gait: Normal to casual gait Romberg's Negative Review and summary of old records: Assessment/Plan Diagnoses and all orders for this visit: FLAVIO (obstructive sleep apnea) Hypersomnia Snoring 34-year-old female with daytime hypersomnia and snoring. She was having witnessed episodes of apnea when she was recovering postop from her gallbladder surgery. She was found to have a severe obstructive sleep apnea with an AHI of 30 and an oxygen desaturation down to 76 percent. She was brought back and titrated onto BiPAP at 15/11 cm of water and this did work well for her. She now has her CPAP machine and best of 30 days from November to December she was wearing it 100 percent of the time greater than 4 hours and are average nightly usage was above 5 hours and 56 minutes with an average AHI of 1. This is working well for her. She did slack off some in December and January. She had some traumatic events and stress in her life. She is now getting back to using the machine. Plan Her polysomnogram was reviewed with her Her CPAP titration was reviewed with her Her compliance data was reviewed with her and is as above she does have a best of 30 day compliance. She has been slacking off some nightly and she needs to get back to putting on machine every single night. The patient was counseled on the need for aggressive diet, exercise, and weight loss. Different weight loss techniques and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
== END 2024-03-16 12:59 | disposition home or self-care (01) ==
LOC: US 12:59
PROVIDERS: PCP Nurse Practitioner; Visit Provider Nurse Practitioner
DX: E28.2 Polycystic ovarian syndrome (principal); R10.2 Pelvic and perineal pain
CPT/HCPCS: 76830; 76856

== ENCOUNTER 2024-04-15 20:56 | Outpatient (REF) | payer BC, SELFPAY | END 2024-04-15 20:57 | disposition home or self-care (01) | LOC: LAB 20:56 | PROVIDERS: PCP Nurse Practitioner; Visit Provider Nurse Practitioner | DX: Z12.4 Encounter for screening for malignant neoplasm of cervix (principal) | CPT/HCPCS: 87624; 88175 ==

== ENCOUNTER 2024-04-25 15:28 | Outpatient (OUT) | payer BC, SELFPAY ==
--- NOTE | 2024-04-25 15:33 | XR_ITS ---
The [address] [address] Patient Name: MATT RICKS MRN: [id number] date: 1990 Sex: F Assigned Patient Location: [facility] Current Patient Location: Accession/Order Number: [id number] Exam Date: 04/25/2024 15:35 Report Date: 04/27/2024 07:07 At the request of: ALANNA FRANCOIS Procedure: XR abdomen 1V EXAMINATION: XR abdomen 1V HISTORY: Kidney Stone COMPARISON: CT abdomen pelvis 02/19/2024, XR abdomen 04/17/2023 FINDINGS: KIDNEY/URETER - RIGHT: No visible renal or ureteral calcifications. KIDNEY/URETER - LEFT: No visible renal or ureteral calcifications. PELVIS: No visible ureteral calcifications. BOWEL: No abnormal dilation or deviation. BONES: No acute abnormality. OTHER: Negative. No abnormal gaseous collections. XR/XR abdomen 1V IMPRESSION: 1. No convincing urinary tract calculi. Electronically authenticated by: NIKOLAS CRISTINA Date: 04/27/2024 07:07
--- OUTSIDE RECORDS SUMMARY | 2024-04-25 15:42 | XMS_ITS | CCD ---
Author Organization [facility] Inform ion Partnership [facility] Care Team Providers Care Child Study Team Director Name Role Phone Luciana Flores Unavailable Tiki Longo Unavailable TAIWO TORRES Attending Unavailable BRIANNA TREJO Referring Unavailable TAIWO TORRES Attending Unavailable TAIWO TORRES Referring Unavailable AICHHOLZ, WHIT J Primary Care Physician [phone] DR KIRTI CROCKETT Consulting Unavailable BON, DR KIRTI Felton Attending Unavailable AICHHOLZ, TEAMCENTER SOLUTION ARCHITECT WHIT Primary Care Unavailable BON, DR KIRTI Felton Admitting Unavailable LUDMILA WINKLER Consulting Unavailable AICHHOLZ, TEAMCENTER SOLUTION ARCHITECT WHIT Primary Care Unavailable PAY ., DR ANDERSON Consulting Unavailable PAY ., DR ANDERSON Attending Unavailable PAY ., DR ANDERSON Admitting Unavailable AICHHOLZ, TEAMCENTER SOLUTION ARCHITECT WHIT Primary Care Unavailable FRANCOIS ., DR MONDRAGON Consulting Unavailable FRANCOIS ., DR MONDRAGON Attending Unavailable FRANCOIS ., DR MONDRAGON Admitting Unavailable AICHHOLZ, TEAMCENTER SOLUTION ARCHITECT WHIT Attending Unavailable AICHHOLZ, TEAMCENTER SOLUTION ARCHITECT WHIT Admitting Unavailable AICHHOLZ, TEAMCENTER SOLUTION ARCHITECT HWIT Primary Care Unavailable AICHHOLZ, TEAMCENTER SOLUTION ARCHITECT WHIT Consulting Unavailable AICHHOLZ, TEAMCENTER SOLUTION ARCHITECT WHIT Primary Care Unavailable FRANCOIS ., DR MONDRAGON Consulting Unavailable FRANCOIS ., DR MONDRAGON Attending Unavailable FRANCOIS ., DR MONDRAGON Admitting Unavailable DORIE, DR BORIS Dave Consulting Unavailable AICHHOLZ, TEAMCENTER SOLUTION ARCHITECT WHIT Attending Unavailable AICHHOLZ, TEAMCENTER SOLUTION ARCHITECT WHIT Admitting Unavailable AICHHOLZ, TEAMCENTER SOLUTION ARCHITECT WHIT Primary Care Unavailable AICHHOLZ, TEAMCENTER SOLUTION ARCHITECT WHIT Consulting Unavailable Nikolas Iqbal Consulting Unavailable AICHHOLZ, TEAMCENTER SOLUTION ARCHITECT WHIT Attending Unavailable AICHHOLZ, TEAMCENTER SOLUTION ARCHITECT WHIT Admitting Unavailable AICHHOLZ, TEAMCENTER SOLUTION ARCHITECT WHIT Primary Care Unavailable AICHHOLZ, TEAMCENTER SOLUTION ARCHITECT WHIT Consulting Unavailable AICHHOLZ, TEAMCENTER SOLUTION ARCHITECT WHIT Attending Unavailable AICHHOLZ, TEAMCENTER SOLUTION ARCHITECT WHIT Admitting Unavailable AICHHOLZ, TEAMCENTER SOLUTION ARCHITECT WHIT Primary Care Unavailable AICHHOLZ, TEAMCENTER SOLUTION ARCHITECT WHIT Consulting Unavailable KARASIK ., DR FAIRBANKS Consulting Unavailabl e KARASIK ., DR FAIRBANKS Attending Unavailabl e AICHHOLZ, TEAMCENTER SOLUTION ARCHITECT WHIT Primary Care Unavailable KARASIK ., DR FAIRBANKS Admitting Unavailabl e AICHHOLZ, TEAMCENTER SOLUTION ARCHITECT WHIT Admitting Unavailable AICHHOLZ, TEAMCENTER SOLUTION ARCHITECT WHIT Primary Care Unavailable AICHHOLZ, TEAMCENTER SOLUTION ARCHITECT WHIT Consulting Unavailable AICHHOLZ, TEAMCENTER SOLUTION ARCHITECT WHIT Attending Unavailable NO FAMILY, PHYSICIAN Primary Care Provider Unava ilable NON STAFF Attending Provider Unavailable NON STAFF Attending Unavailable NON STAFF Admitting Unavailable NO FAMILY, PHYSICIAN Primary Care Unavailable Mushtaq Lu MD Primary Care Provider Aichholz EVENT MANAGER, Whit Unavailable AUGUSTIN GIRARD Attending Unavailable ISAEL, ANAM EDY Referring Unavailable NO PCP, NO PCP Primary Care Unavailable Aichholz EVENT MANAGER, Whit Unavailable ADA SELF Attending Unavailable AICHHOLZ, [...] ANAM Attending Unavailable AICHHOLZ, WHIT Referring Unavailable SAMSON, RHANDA Attending Unavailable SAMSON, RHANDA Attending Unavailable AICHHOLZ, WHIT Attending Unavailable No Pcp, No Pcp Primary Care Provider Unavailabl e Audi FRANCOIS Attending Unavailable Allergies Allergy Classification Reported Allergen(s) Allergy Type Date of Onset Reaction(s) Facility (8 sources) [facility]; Translations: [STRAWBERRIES] Food Intolerance 12-31-19 Hives, Eruption of skin (disorder) [facility] (4 sources) Penicillin; Translations: [penicillin] Drug Allergy 04-12-20 Unknown (qualifier value) [facility] (1 source) Penicillin V Drug Allergy rash [place] [facility] Other (1 source) strawberry allergenic extract Drug Allergy [facility] Repository (1 source) Penicillins Drug allergy (disorder) 04-08-20 [facility] Repository (20 sources) Penicillin G Drug Allergy 07-12-19 24 Rash [facility] (20 sources) [place] Propensity to adverse reactions 03-30-20 21 Hives [facility] (20 sources) Other Allergy to substance 09-07-19 [facility] Work Phone: Medications Current Medications Medication Drug Class(es) Dates Sig (Normalized) Sig (Original) brompheniramine maleate 0.4 mg/ml / dextromethorphan hydrobromide 2 mg/ml / pseudoephedrine hydrochloride 6 mg/ml oral solution (1 source) alpha-Adrenergic Agonist, Uncompetitive G-jjveqh-T-aspartat e Receptor Antagonist, Sigma-1 Agonist Start: 04-08-2022 take 10 mL by mouth every six hours Pseudoeph-Bromp hen-DM 30-2-10 MG/5ML 10 mL Orally every 6 hours for 5 days Apr, Active busPIRone hydrochloride 5 mg oral tablet (19 sources) Start: 11-14-2023 take 1 tablet by mouth once busPIRone (Buspar) 5 MG tablet Indications: Panic attack as reaction to stress (CMS/HCC) Take 1 tablet (5 mg) by mouth every 12 (twelve) hours if needed (anxiety) 60 tablet 1 11/14/2023 Active Start: 11-14-2023 busPIRone (BUS PAR) 5 mg tablet Take 1 tablet (5 mg total) by mouth. 11/14/2023 Active dextromethorphan hydrobromide 1.5 mg/ml / pyrilamine maleate 1.5 mg/ml oral solution (1 source) Uncompetitive P-wrdrae-S-aspartate Receptor Antagonist, Sigma-1 Agonist Start: 08-27-2021 take 10 mL by mouth every eight hours [place] DM 7.5-7.5 MG/5ML 10 mL Orally every 8 hours for 5 days Aug, Active fluticasone propionate 0.05 mg/actuat metered dose nasal spray (1 source) Corticosteroid Start: 08-27-2021 take 1 spray(s) nasal route once daily Flonase Allergy Relief 50 MCG/ACT 1 spray in each nostril Nasally Once a day for 14 day(s) Aug, Active ibuprofen 800 mg oral tablet (1 source) Nonsteroidal Anti-inflammatory Drug Start: 08-07-2021 ibuprofen (ADVIL,MOTRIN) 800 mg tablet Take 1 tablet (800 mg total) by mouth in the morning and 1 tablet (800 mg total) at noon and 1 tablet (800 mg total) before bedtime. 21 tablet 08/07/2021 Active labetalol hydrochloride 100 mg oral tablet (20 sources) beta-Adrenergic Jacki Start: 10-10-2023 End: 05-27-2024 [...] on above: Take 2 tablets by mo [facility] as directed for 5 days. days 3-7 24 hr metFORMIN hydrochloride 750 mg extended release oral tablet (5 sources) Biguanide Start: 04-04-2022 take 1 mg by mouth once daily metformin 750 mg ER Tab mg tab(s), Oral, Daily, Refills(s) 0 Start Date: 04/04/22 Status: Ordered Start: 01-14-2022 take 2 tablets by mo uth once daily at breakfast metFORMIN ER (GLUCOPHAGE [...] (1 source) Aldosterone Antagonist Spironola ctone Active traZODone hydrochloride 50 mg oral tablet (1 source) Serotonin Reuptake Inhibitor Start: 11-14-2023 traZODone (Desyrel) 50 MG tablet Indications: Panic attack as reaction to stress (CMS/HCC) Take 1 tablet (50 mg) by mouth as needed at bedtime for sleep 30 tablet 1 11/14/2023 Active Completed/Discontinued Medications Medication Drug Class(es) Dates [...] Active Problems Problem Classification Problem Date Documented Date Episodic/Chronic Abdominal hernia (20 sources) Hernia of [...] anxiety]] Onset: 11-14-2023 11-14-2023 Chronic Essential hypertension (20 sources) Essential (primary) hypertension; Translations: [Essential hypertension] Onset: 11-23-2021 09-07-2023 Chronic Female infertility (2 sources) Female infertility 04-04-2022 Chronic Headache; including migraine (1 source) Headache; including migraine; Translations: [HEADACHE UNSPECIFIED] Onset: 05-23-2022 Menstrual disorders (5 sources) Primary amenorrhea; Translations: [Primary amenorrhea] Onset: 12-30-2021 Chronic Mood disorders (20 sources) Moderate major depression, single episode; Translations: [Major depressive disorder, single episode, moderate] Onset: 12-29-2023 12-29-2023 Chronic Nonmalignant breast conditions (4 sources) Abscess of the breast and nipple; Translations: [ABSCESS OF THE BREAST AND NIPPLE] Onset: 08-31-2022 Episodic Other endocrine disorders (2 sources) Polycystic ovary syndrome 04-04-2022 Chronic Other endocrine disorders (20 sources) Polycystic ovary; Translations: [Polycystic ovarian syndrome] [...] Chronic Other nutritional; endocrine; and metabolic disorders (20 sources) Obesity caused by energy imbalance; Translations: [Morbid (severe) obesity due to excess calories] Onset: 12-04-2023 12-04-2023 Chronic Other nutritional; endocrine; and metabolic disorders (20 sources) Body mass index 40+ - severely obese; Translations: [Body mass index (BMI) 50.0-59.9, adult] Onset: 12-04-2023 12-04-2023 Chronic Other upper respiratory disease (20 sources) Allergic disposition; Translations: [Other allergic rhinitis] Onset: 08-01-2023 08-01-2023 Chronic Residual codes; unclassified (20 sources) Obstructive sleep apnea syndrome; Translations: [Obstructive sleep apnea (adult) (pediatric)] Onset: 09-07-2023 09-20-2023 Chronic Residual codes; unclassified (2 sources) Hypersomnia; Translations: [Hypersomnia, unspecified] 02-28-2024 Chronic Unclassified (2 sources) Asymptomatic microscopic hematuria 04-04-2022 Unclassified (1 source) CONTACT W/AND (SUSP) EXPOS COVID-19; Translations: [CONTACT W/AND (SUSP) EXPOS COVID-19] Onset: 05-23-2022 Unclassified (1 source) Patient on antidepressant monitoring plan Onset: 11-14-2023 11-14-2023 Unclassified (1 source) Baseline PHQ-9 Onset: 11-14-2023 11-14-2023 Past or Other Problems Problem Classification Problem Date Documented Date Episodic/Chronic Biliary tract disease (20 sources) Cholelithiasis without obstruction; Translations: [Calculus of gallbladder without cholecystitis without obstruction] Onset: 08-10-2023 Resolved: 12-07-2023 12-07-2023 Episodic Calculus of urinary tract (20 sources) Calculus of kidney; Translations: [Kidney stone] Onset: 04-21-2022 09-07-2023 Episodic Diabetes mellitus without complication (20 sources) Prediabetes; Translations: [Prediabetes] Onset: 08-01-2023 04-04-2022 [...] (HPV)] Onset: 08-27-2021 Resolved: 08-27-2021 Episodic Influenza (20 sources) Influenza due to Influenza B virus; Translations: [Influenza due to other identified influenza virus with other respiratory manifestations] Onset: 08-01-2023 Resolved: 12-07-2023 12-07-2023 Episodic Mood disorders (20 sources) Mood disorders Onset: 12-27-2023 12-27-2023 Nausea and vomiting (4 sources) Nausea with vomiting, unspecified; Translations: [NAUSEA WITH VOMITING UNSPECIFIED] Onset: 05-13-2022 Episodic Nonspecific chest pain (4 sources) Chest pain, unspecified; Translations: [CHEST PAIN UNSPECIFIED] Onset: 11-22-2021 Episodic Other aftercare (1 source) Other terminal make up operator (current) drug therapy; Translations: [OTH CORRECTION CURRENT DRUG THERAPY] Onset: 05-23-2022 Episodic Other aftercare (1 source) superintendent container terminal (current) use of oral hypoglycemic drugs; Translations: [CORRECTION USE ORAL HYPOGLYCEMIC DX] Onset: 05-23-2022 Episodic Other circulatory disease (20 sources) Elevated blood pressure; Translations: [Elevated blood-pressure reading, without diagnosis of hypertension] Onset: 08-01-2023 Resolved: 11-14-2023 11-14-2023 Episodic Other nutritional; endocrine; and metabolic disorders (20 sources) Morbid obesity; Translations: [Morbid (severe) obesity [...] 08-27-2021 Resolved: 08-27-2021 Episodic Residual codes; unclassified (5 sources) Family history of kidney disease; Translations: [Family history of disorders of kidney and ureter] Onset: 04-04-2022 Episodic Residual codes; unclassified (2 sources) Family history of renal stone 04-04-2022 Episodic Residual codes; unclassified (4 sources) Other specified health status; Translations: [OTHER SPECIFIED HEALTH STATUS] Onset: 11-30-2021 Episodic Screening and history of mental health and substance abuse codes (1 source) Personal history of nicotine dependence; Translations: [PERSONAL HISTORY OF NICOTINE DEPEND] Onset: 04-21-2022 Episodic Spondylosis; intervertebral disc disorders; other back problems (2 sources) Low back pain 04-04-2022 Episodic Unclassified (1 source) Cough R05.9 Viral infection (2 sources) Verruca vulgaris 04-04-2022 Episodic Viral infection (1 source) COVID-19 Results Test Name Value Interpretation Reference Range Facility IGP,APTIMA HPV,AGE GDLNon AGE GDLN ACOG TESTING Note . [facility] Comment on above: TESTS RESULT FLAG UN ITS REF RANGE LAB Clinician Provided Cytology Information Source.............Cervix;Endocervix LMP / Prev Treat...[id number]=[id number] No. of containers..01 ThinPrep Vial Age Algo ACOG Norah... 30-65 01 FLAG LEGEND: L-Low Normal,H-High Normal,LL-Alert Low,HH-Alert High <-Panic Low,>-Panic High,A-Abnormal,AA-Critical Abnormal Performed at: 01 =G [address] [address] Yesenia Nelson MD, HPV APTIMA Positive Abnormal Negative [facility] Comment on above: This nucleic acid am plification test detects fourteen high- risk HPV types (16,18,31,33,35,39,45,51,52,56,58,59,66,68) without differentiation. Performed at: =G - [facility], [place] [id number] Serger: Yesenia Nelson MD, Phone: [phone] Performed at: - [facility], [place] [id number] Serger: Yesenia Nelson MD, Phone: [phone] IGP, APTIMA HPV, RFX 16/18,45 Note Abnormal . [facility] Comment on above: TESTS RESULT FLAG UN ITS REF RANGE LAB DIAGNOSIS: [A] 02 EPITHELIAL CELL ABNORMALITY. LOW GRADE SQUAMOUS INTRAEPITHELIAL LESION (LSIL). Specimen adequacy: 02 Satisfactory for evaluation. No endocervical component is identified. Performed by: 02 Fallon Ferrara, Milking Machine Technician (ASCP) Electronically si... 02 Sarai Martins MD, Pathologist . 02 Pathologist ICD10: 02 R87.612 Note: Note 02 The Pap smear is a screening test designed to aid in the detection of premalignant and malignant conditions of the uterine cervix. It is not a diagnostic procedure and should not be used as the sole means of detecting cervical cancer. Both false-positive and false-negative reports do occur. Test Methodology: Note 02 This liquid based ThinPrep(R) pap test was screened with the use of an image guided system. HPV Genotype Reflex Note 02 Criteria not met, HPV Genotype not performed. FLAG LEGEND: L-Low Normal,H-High Normal,LL-Alert Low,HH-Alert High <-Panic Low,>-Panic High,A-Abnormal,AA-Critical Abnormal Performed at: [address] [facility] [place] [address] Yesenia Nelson MD, Interpretation and review of laboratory results Abnormal [facility] BROOM-ALONE 03/26/2024 [facility]IX [facility] HbA1c (Bld) [Mass fraction]o n 03-05-2024 Interpretation and review of laboratory results Normal [facility] 03-05-2024 HbA1c (Bld) [Mass fraction] 5.50 % [facility] Francis 08-29-2023 L Specimen: [id number] Received: 08/30/23 Status: FATUMA Zuñiga Num: [id number] Spec Type: Surgical Subm Dr: DAYSI STAFF Tissues: A Gallbladder (GALLBLADDER) Procedures: HE, Gross/Micro L3 Age/ Patient Sex Location Account Attending Physician Ramin Hernandez 33/F [facility] [id number] NON STAFF SPEC NUM: [id number] RECD: 08/30/23 STATUS: FATUMA ZUÑIGA NUM: [id number] RADHA: 08/29/[address]: DAYSI STAFF ENTERED: 08/30/23 [facility] DR: Kamaljit Duran SPEC TYPE: Surgical DEPT: [...] 0.1 to 0.2 cm in maximum thickness. Cryptologist sections are submitted in A1. Clinical history: Symptomatic cholelithiasis CPT Codes 80664 Specimen: [id number] Received: 08/30/23 Status: FATUMA Zuñiga Num: [id number] Spec Type: Surgical Subm Dr: NON STAFF Tissues: A Gallbladder (GALLBLADDER) Procedures: Adiel STEWARD/Placido L3 Patient: Ramin Hernandez [id number] (Continued) Signed (signature on file) Zain Blackburn MD 08/31/23 1703 Normal [facility] Covid-19 PCR (CVDTBH)on 09-05 SARS-CoV-2 (COVID-19) RNA CRISTEL+probe Ql (Unsp spec) Not detected Normal NOT DETECTED [facility] Comment on above: Performed By: #### C VDAGS #### [facility] [address] [place] [address] Dr. Alexei Gonzales INFLUENZA A AND B AGon 09-20 INFLUANEGH SEE BELOW Normal [facility] Comment on above: Result Comment: Nega tive for Flu A protein angiten. Infection due to Flu A cannot be ruled out. Flu A angiten in the sample may be below the detection limit of the test. Performed By: #### I NFLUAB #### [facility] [address] [place] [address] Dr. Alexei Gonzales INFLUBNEGH SEE BELOW Normal [facility] Comment on above: Result Comment: Nega tive for Flu B protein antigen. Infection due to Flu B cannot be ruled out. Flu B antigen in the sample may be below the detection limit of the test. Performed By: #### I NFLUAB #### [facility] [address] [place] [address] Dr. Alexei Gonzales INFLUENZA A AG Negative Normal NEGATIVE SEE COMMENT [facility] Comment on above: Performed By: #### I NFLUAB #### [facility] [address] [place] [address] Dr. Alexei Gonzales INFLUENZA B AG Negative Normal NEGATIVE SEE COMMENT [facility] Comment on above: Performed By: #### I NFLUAB #### [facility] [address] [place] [address] Dr. Alexei Gonzales SYMPTOMATIC COVID-19 ANTIGEN on [...] sooner. Performed By: #### C VDAGS #### [facility] [address] [place] [address] Dr. Alexei Gonzales SARS-CoV-2 (COVID-19) RNA CRISTEL+probe Ql (Unsp spec) Negative Normal NEGATIVE [facility] Comment on above: Performed By: #### C VDAGS #### [facility] [address] [place] [address] Dr. Alexei Gonzales CULTURE WOUNDon 08-31-2022 CULTURE WOUND Culture Observations : ANAEROBE PRESENT. Isolate 1 Peptoniphilus lacrimalis Light growth of Normal [facility] Comment on above: Performed By: #### C VDAGS #### [facility] [address] [place] [address] Dr. Alexei Gonzales CBC AUTO DIFFon 05-13-2022 BASO # 0.1 103/ul Normal 0.0-0.1 [facility] Comment on above: Performed By: #### C BC #### [facility] [address] [place] [address] Dr. Alexei Gonzales Basophils/100 WBC (Bld) 0.7 % Normal 0.2-2.[address] [facility] Comment on above: Performed By: #### C BC #### [facility] [address] [place] [address] Dr. Alexei Gonzales EO # 0.0 103/ul Normal 0.0-0.[address] [facility] Comment on above: Performed By: #### C BC #### [facility] [address] [place] [address] Dr. Alexei Gonzales Eosinophils/100 WBC (Bld) 0.1 % Critically low 0.9-7.0 [facility] Comment on above: Performed By: #### C BC #### [facility] [address] [address] [address] Alexei Gonzales Erythrocyte distribution width (RBC) [Ratio] 14.6 % Normal 11.0-15.0 [facility] Comment on above: Performed By: #### C BC #### [facility] [address] [address] [address] Alexei Gonzales Hematocrit (Bld) [Volume fraction] 38.5 % Normal 36.0-48.0 [facility] Comment on above: Performed By: #### C BC #### [facility] [address] [place] [address] Dr. Alexei Gonzales Hemoglobin (Bld) [Mass/Vol] 13.0 g/dL Normal 12.0-16.0 [facility] Comment on above: Performed By: #### C BC #### [facility] [address] [place] [address] Dr. Alexei Gonzales IG # 0.04 10e3/ul Critically high 0.00-0.03 [facility] Comment on above: Performed By: #### C BC #### [facility] [address] [place] [address] Dr. Alexei Gonzales IG % 0.5 % Normal 0.0-0.5 [facility] Comment on above: Performed By: #### C BC #### [facility] [address] [place] [address] Dr. Alexei Gonzales LYMPH # 0.3 103/ul Critically low 1.2-3.8 [facility] Comment on above: Performed By: #### C BC #### [facility] [address] [place] [address] Dr. Alexei Gonzales Lymphocytes/100 WBC (Bld) 4.6 % Critically low 20.5-60.0 [facility] Comment on above: Performed By: #### C BC #### [facility] [address] [place] [address] Dr. Alexei Gonzales MANUAL DIFF REQ NO Normal [facility] Comment on above: Performed By: #### C BC #### [facility] [address] [place] [address] Dr. Alexei Gonzales MCH (RBC) [Entitic mass] 27.0 pg Normal 26.7-34.0 [facility] Comment on above: Performed By: #### C BC #### [facility] [address] [place] [address] Dr. Alexei Gonzales MCHC (RBC) [Mass/Vol] 33.8 g/dL Normal 29.9-35.[address] [facility] Comment on above: Performed By: #### C BC #### [facility] [address] [place] [address] Dr. Alexei Gonzales MCV (RBC) [Entitic vol] 79.9 fL Critically low 81.0-99.0 [facility] Comment on above: Performed By: #### C BC #### [facility] [address] [place] [address] Dr. Alexei Gonzales MONO # 0.7 103/ul Normal 0.3-0.8 [facility] Comment on above: Performed By: #### C BC #### [facility] [address] [place] [address] Dr. Alexei Gonzales Monocytes/100 WBC (Bld) 10.1 % Normal 1.7-12.0 [facility] Comment on above: Performed By: #### C BC #### [facility] [address] [place] [address] Dr. Alexei Gonzales NEUT # 6.2 103/ul Normal 1.4-6.[address] [facility] Comment on above: Performed By: #### C BC #### [facility] [address] [place] [address] Dr. Alexei Gonzales Neutrophils/100 WBC (Bld) 84.0 % Critically high 43.0-75.[address] [facility] Comment on above: Performed By: #### C BC #### [facility] [address] [place] [address] Dr. Alexei Gonzales Platelet mean volume (Bld) [Entitic vol] 10.2 fL Normal 9.5-13.[address] [facility] Comment on above: Performed By: #### C BC #### [facility] [address] [address] [address] Alexei Gonzales PLT 266 103/ul Normal 150-[address] [facility] Comment on above: Performed By: #### C BC #### [facility] [address] [address] [address] Alexei Gonzales RBC 4.82 106/ul Normal 4.20-5.[address] [facility] Comment on above: Performed By: #### C BC #### [facility] [address] [place] [address] Dr. Alexei Gonzales WBC 7.3 103/ul Normal 4.0-11.0 [facility] Comment on above: Performed By: #### C BC #### [facility] [address] [place] [address] Dr. Alexei Gonzales [facility]on SARS-CoV-2 (COVID-19) RNA CRISTEL+probe Ql (Unsp spec) Not detected Normal NOT DETECTED [facility] [facility] Comment on above: Result Comment: This test is not yet approved or cleared by the [place] FDA. When there are no FDA-approved or cleared tests available, and other criteria are met, FDA can make tests available under an emergency access mechanism called an Emergency Use Authorization (EUA). The EUA for this test is supported by the [place] of Health and Human Service's (HHS's) declaration [...] SARS-CoV-2. Performed By: #### C BC #### [facility] [address] [place] [address] Dr. Alexei Gonzales GROUP A STREP CULTUREon S. pyogenes Ag Ql (Unsp spec) Culture Observations: NEGATIVE FOR GROUP A STREPTOCOCCUS. Normal [facility] Comment on above: Performed By: #### C VDAGS #### [facility] [address] [place] [address] Dr. Alexei Gonzales INFLUENZA A AND B AGon 05-13 INFLUANEGH SEE BELOW Normal [facility] Comment on above: Result Comment: Nega tive for Flu A protein angiten. Infection due to Flu A cannot be ruled out. Flu A angiten in the sample may be below the detection limit of the test. Performed By: #### C BC #### [facility] [address] [place] [address] Dr. Alexei Gonzales INFLUBNEGH SEE BELOW Normal [facility] Comment on above: Result Comment: Nega tive for Flu B protein antigen. Infection due to Flu B cannot be ruled out. Flu B antigen in the sample may be below the detection limit of the test. Performed By: #### C BC #### [facility] [address] [place] [address] Dr. Alexei Gonzales INFLUENZA A AG Negative Normal NEGATIVE SEE COMMENT [facility] Comment on above: Performed By: #### C BC #### [facility] [address] [place] [address] Dr. Alexei Gonzales INFLUENZA B AG Negative Normal NEGATIVE SEE COMMENT [facility] Comment on above: Performed By: #### C BC #### [facility] [address] [place] [address] Dr. Alexei Gonzales PREG HCG QUALon 05-13-2022 , QUAL Negative Normal NEGATIVE [facility] Comment on above: Performed By: #### C VDAGS #### [facility] [address] [place] [address] Dr. Alexei Gonzlaes PROF 14(COMP METB)on 023 Albumin [Mass/Vol] 3.6 g/dL Normal 3.4-5.0 [facility] Comment on above: Performed By: #### C MP #### [facility] [address] [place] [address] Dr. Alexei Gonzales Albumin/Globulin [Mass ratio] 0.8 {ratio} Normal [facility] Comment on above: Performed By: #### C MP #### [facility] [address] [place] [address] Dr. Alexei Gonzales ALP [Catalytic activity/Vol] 95 U/L Normal 46-116 [facility] Comment on above: Performed By: #### C MP #### [facility] [address] [address] [address] Alexei Gonzales ALT [Catalytic activity/Vol] 62 U/L Critically high 14-59 [facility] Comment on above: Performed By: #### C MP #### [facility] [address] [place] [address] Dr. Alexei Gonzales Anion gap [Moles/Vol] 11.2 mmol/L Normal [facility] Comment on above: Performed By: #### C MP #### [facility] [address] [place] [address] Dr. Alexei Gonzales AST [Catalytic activity/Vol] 44 U/L Critically high 15-37 [facility] Comment on above: Performed By: #### C MP #### [facility] [address] [place] [address] Dr. Alexei Gonzales Bilirubin [Mass/Vol] 0.3 mg/dL Normal 0.2-1.0 [facility] Comment on above: Performed By: #### C MP #### [facility] [address] [place] [address] Dr. Alexei Gonzales Calcium [Mass/Vol] 8.9 mg/dL Normal 8.5-10.1 [facility] Comment on above: Performed By: #### C MP #### [facility] [address] [address] [address] Alexei Gonzales Chloride [Moles/Vol] 100 mmol/L Normal 98-107 [facility] Comment on above: Performed By: #### C MP #### [facility] [address] [place] [address] Dr. Alexei Gonzales CO2 [Moles/Vol] 26.4 mmol/L Normal 21.0-32.0 [facility] Comment on above: Performed By: #### C MP #### [facility] [address] [address] [address] Alexei Gonzales Creatinine [Mass/Vol] 0.98 mg/dL Normal 0.55-1.02 [facility] Comment on above: Performed By: #### C MP #### [facility] [address] [address] [address] Alexei Gonzales EGFR-AF MAURITANIAN >60 Normal >=60 [facility] Comment on above: Performed By: #### C MP #### [facility] [address] [address] [address] Alexei Gonzales EGFR-NON AF MAURITANIAN >60 Normal >=60 [facility] Comment on above: Performed By: #### C MP #### [facility] [address] [place] [address] Dr. Alexei Gonzales Globulin (S) [Mass/Vol] 4.3 g/dL Normal [facility] Comment on above: Performed By: #### C MP #### [facility] [address] [address] [address] Alexei Gonzales Glucose [Mass/Vol] 125 mg/dL Critically high 74-106 [facility] Comment on above: Performed By: #### C MP #### [facility] [address] [address] [address] Alexei Gonzales Potassium [Moles/Vol] 3.6 mmol/L Normal 3.5-5.1 [facility] Comment on above: Performed By: #### C MP #### [facility] [address] [place] [address] Dr. Alexei Gonzales Protein [Mass/Vol] 7.9 g/dL Normal 6.4-8.2 [facility] Comment on above: Performed By: #### C MP #### [facility] [address] [address] [address] Alexei Gonzales Sodium [Moles/Vol] 134 mmol/L Critically low 136-145 [facility] Comment on above: Performed By: #### C MP #### [facility] [address] [place], [place] [address] Dr. Alexei Gonzales Urea nitrogen [Mass/Vol] 12.0 mg/dL Normal 7.0-18.0 [facility] Comment on above: Performed By: #### C MP #### [facility] [address] [place], [place] [address] Dr. Alexei Gonzales Urea nitrogen/Creatinin e [Mass ratio] 12.2 mg/mg Normal [facility] Comment on above: Performed By: #### C MP #### [facility] [address] [place], [place] [address] Dr. Alexei Gonzales STREPT SCREENon 05-13-2022 STREP SCREEN A Negative Normal NEGATIVE [facility] Comment on above: Performed By: #### C VDAGS #### [facility] [address] [place], [place] [address] ABD/PELV WO W [...] the patient's hematuria Electronically authenticated by: BORIS Clay: 2022-04-15 11:19 Normal [address] [facility] COVID/FLU/RSV RT-PCRon 04-08 SARS-CoV-2 (COVID-19) RNA CRISTEL+probe Ql (Unsp spec) Positive [facility] Other COVID/FLU/RSV RT-PCR Negative [facility] Other CNPNon 01-25-2022 [facility] Telephone (REITW) -- RAMIN DANIELLE ([id number]) 1990 F Date Time Provider Department 01/25/22 TAIWO TORRES During your visit today, we recorded the following information about you: Erica Oscar RN 01/25/2022 9:52 AM Signed Routing to Non [facility] ivf Pool to refuse provera refill Just filled 1 weeks ago rEica Oscar RN January 25, 2022 9:52 AM Dilcia Dawn APRN.[facility] 01/25/2022 10:09 AM Signed Patient's request [...] Encounter Status:Closed by DILCIA DAWN on 01/25/22 [facility] RAMIN DANIELLE ([id number]) 1990 F Date Time Provider Department 01/18/22 SISSY TEMPLE During your visit today, we recorded the following information about you: Luciana Kline 01/18/2022 10:31 AM Signed Sissy Brown MD P i A10 Scheduling Pool New PCOS patient for clinic Call to patient, no answer. Left voicemail for patient to call the office so that we may assist with scheduling and appointment with Dr. Kwan for PCOS clinic. Luciana Kline Allergies As of Date: 01/18/2022 Noted Allergy [...] Of Date: 01/18/2022 (None) Encounter Status:Closed by SONNY LUCIANA on 01/18/[address] [facility] XR KUB 1 VIEWon 01-17-2022 [...] by: NIKOLAS IQBAL Date: 2022-01-17 13:05 Normal [facility] 25(OH)D3 [facility] 25-hydroxyvitamin D3 [Mass/Vol] 23.4 ng/mL Low 31.0-80.[address] [facility] Comment on above: Order Comment: Rayne putnam Type: BLOOD SPECIMEN Ordering Facility: [facility] Address: [address] [place] [address] Result Comment: Clas sification of 25 [place] Vitamin D status: Deficiency/Insufficiency: < or = 30 ng/ml. Sufficiency/Optimal Levels: 31-80 ng/mL Toxicity: > 100 ng/mL. Test performed by chemiluminescent immunoassay. Performed By: #### V ZVG2, 1988-07XOCHITL #### [facility] CLIA [id number] [address] [place], [place] [address] OF [facility] CNOVon 12-30-2021 CNOV Office Visit (REISO) -- RAMIN DANIELLE ([id number]) 1990 F Date Time Provider Department 12/30/21 [...] which included preparing to see the patient, [id number] patient care, completing clinical documentation, obtaining and/or reviewing separately obtained history, counseling and educating the patient/family/caregiver, and ordering medications, tests, or procedures. Taiwo Torres MD letter to Dr. Longo Referring Provider: BRIANNA TREJO [[id number]] Allergies As of Date: 12/30/2021 Noted Allergy Reaction STRAWBERRIES 12/30/2021 4 - Hives Date Reviewed: 12/30/2021 Reviewed by: Cinthia Price Ma - Fully Assessed Reason for Visit: New Patient [172] Infertility [285] Primary Visit Diagnosis:Primary amenorrhea [N91.0] Order(s):TSH BLD [SQTSH] Order #: [id number] FUTURE PROLACTIN BLD [SQPROL] Order #: [id number] FUTURE RUBELLA IGG AB [SQRUBQNT] Order #: [id number] FUTURE VARICELLA ZOSTER IGG [SQVZVG] Order #: [id number] FUTURE VITAMIN D 25 HYDROXY [SQVITD] Order #: [id number] FUTURE TYPE + SCREEN [SQTSCR] Order #: [id number] FUTURE FSH BLD [SQFSH] Order #: [id number] FUTURE ESTRADIOL-17B BLD [SQE2] Order #: [id number] FUTURE HGB A1C [WCEPT5W] Order #: [id number] FUTURE Prescriptions as of 12/30/2021 - PNV no.95/ferrous fum/folic ac ( ORAL) Take by mouth. Problem List As Of Date: 12/30/2021 (None) Encounter Status:Closed by TAIWO TORRES on 12/30/[address] [facility] Estradiol SerPl-mCncon 12-30 E2 [Mass/Vol] 60 pg/mL Normal [facility] Comment on above: Order Comment: Speci men Type: BLOOD SPECIMEN Ordering Facility: [facility] Address: [address] [place] [address] Result Comment: This test is not suitable [...] 3243 pg/mL Second trimester : 1561 to 24343 pg/mL Third trimester : 8285 to >96733 pg/mL Post-menopausal Estradiol reference range: < 41 pg/mL Reference: 1. Estradiol - E2 (Estradiol III) [package insert V 3.0 Serbian]. [facility], [place], [place], October 2015. Performed By: #### 3 016-3, 77422-4, 2243-4, 2842-3 #### [facility] CLIA [id number] [address] [place] [address] [place] [address] [place] FSH SerPl-aCncon 12-30-2021 Follitropin Qn 6.4 m[IU]/mL Normal [facility] Comment on above: Order Comment: Speci [place] Type: BLOOD SPECIMEN Ordering Facility: [facility] [place] Address: [address] [place] [address] Result Comment: Refe rence range: Follicular: 3.5-12.5 mIU/mL Midcycle: 4.7-21.5 mIU/mL Luteal: 1.7-7.7 mIU/mL Post [place]: 25.8-134.8 mIU/mL Performed By: #### 3 016-3, 66649-4, 2243-4, 2842-3 #### [facility] CLIA [id number] [address] [place] [address] OF [place] HbA1c (Bld)on 12-30-2021 Average glucose Estimated from glycated hemoglobin (Bld) [Mass/Vol] 120 mg/dL Normal [facility] Comment on above: Order Comment: Speci men Type: BLOOD SPECIMEN Ordering Facility: [facility] [place] Address: [address] [place] [address] Result Comment: eAG: (Estimated average glucose) is a calculated value from HgbA1c and is enrollment eligibility representative of the average blood glucose level in the last 2-3 month period. Performed By: #### 5 5454-3 #### [facility] CLIA [id number] [address] [place] [address] STATES OF [facility] HbA1c (Bld) [Mass fraction] 5.8 % High 4.3-5.[address] [facility] Comment on above: Order Comment: Speci men Type: BLOOD SPECIMEN Ordering Facility: [facility] [place] Address: [address] [place] [address] Result Comment: [place] Diabetes Association guidelines indicate that patients with HgbA1c in the range 5.7-6.4% are at increased risk for development of diabetes, and intervention by lifestyle modification may be beneficial. HgbA1c greater or equal to 6.5% is considered diagnostic of diabetes. Performed By: #### 5 5454-3 #### [facility] CLIA [id number] [address] [place] [address] OF [place] Prolactin SerPl-mCncon 12-30 Prolactin [Mass/Vol] 10.3 ng/mL Normal 4.5-26.[address] [facility] Comment on above: Order Comment: Rayne putnam Type: BLOOD SPECIMEN Ordering Facility: [facility] [place] Address: [address] [place] [address] Result Comment: Prol actin test is performed using the [facility] Electrochemiluminescence Immunoassay method. Results obtained with different methods or kits cannot be used interchangeably. Performed By: #### 3 016-3, 34094-0, 2243-4, 2842-3 #### [facility] CLIA [id number] [address] [place] [address] OF [place] RUBELLA IGG ABon 12-30-2021 RUBELLA IGG AB, QUAL Positive Normal Positive [facility] Comment on above: Order Comment: Rayne putnam Type: BLOOD SPECIMEN Ordering Facility: [facility] [place] Address: [address] [place] [address] Result Comment: The result suggests recent or past exposure to Rubella virus or history of Rubella vaccination. Positive result may also be seen due to presence of passively-transferred antibodies. Please correlate with patient's history. Performed By: #### V ZVG2, 1989-, RUBIGG #### [facility] CLIA [id number] [address] [place] [address] [place] TSH SerPl-aCncon 12-30-2021 TSH Qn 2.730 m[IU]/L Normal 0.270-4.[address] [facility] Comment on above: Order Comment: Rayne putnam Type: BLOOD SPECIMEN Ordering Facility: [facility] [place] Address: [address] [place] [address] Result Comment: If t he patient is , TSH reference range varies by gestational period: First Trimester (weeks 9-12): 0.180-2.990 mIU/L Second Trimester: 0.110-3.980 mIU/L Third Trimester: 0.480-4.710 mIU/L Soham Joaquin et al. A Practical Approach for the Verifications and Determination of Site- and Trimester-Specific Reference Intervals for Thyroid Function tests in . Thyroid, 2019:29:3:412-420. Tavares E, et al. 2017 Guidelines of the [place] Thyroid Association for the Diagnosis and Management of Thyroid Disease during and the . Thyroid, 2017:27:3:315-389. Performed By: #### 3 016-3, 65945-9, 2243-4, 2842-3 #### [facility] CLIA [id number] [address] [place] [address] OF [place] TYPE + SCREENon 12-30-2021 HISTORICAL AB SCR STATUS Negative Normal [facility] Comment on above: Order Comment: Specanthony putnam Type: BLOOD SPECIMENOrdering Facility: [facility] [place] Address: [address] [place] [address] Performed By: #### T SCR ####[facility] BANKCLIA [id number] [address] [place] OF [place] TYPE AND SCREEN EXPIRATION 01/02/2022 23:[address] [facility] Comment on above: Order Comment: Rayne putnam Type: BLOOD SPECIMENOrdering Facility: [facility] [place] Address: [address] [place] [address] Performed By: #### T SCR ####[facility] BLOOD BANKCLIA [id number] [address] OF [place] VARICELLA ZOSTER IGGon 12-30 VARICELLA ZOSTER IGG, QUAL Positive Normal Positive [facility] Comment on above: Order Comment: Rayne putnam Type: BLOOD SPECIMEN Ordering Facility: [facility] [place] Address: [address] [place] [address] Result Comment: The result suggests recent or past exposure to Varicella-Zoster virus or chickenpox vaccination or zoster vaccination. Positive result may also be seen due to presence of passively-transferred antibodies. Please correlate with patient's history. Performed By: #### V ZVG2, 1989-3, RUBIGG #### [facility] CLIA [id number] [place] CULTURE URINEon 12-21-2021 CULTURE URINE Culture Observations : LIGHT GROWTH OF MIXED GENITAL ANTONIO. NO POTENTIAL PATHOGENS SEEN. Normal The [facility] Comment on above: Performed By: #### C VDAGS #### [facility] [address] [place] [address] Dr. Alexei Gonzales UA RANDOM W/MICROSCOPICon BACTERIA TRACE Abnormal NONE SEEN The [facility] Comment on above: Performed By: #### C BC #### [facility] [address] [place] [address] Dr. Alexei Gonzales Bilirubin Ql (U) Negative Normal NEGATIVE The [facility] Comment on above: Performed By: #### C BC #### [facility] [address] [place] [address] Dr. Alexei Gonzales CAST NONE SEEN Normal NONE SEEN The [facility] Comment on above: Performed By: #### C BC #### [facility] [address] [place] [address] Dr. Alexei Gonzales Clarity (U) CLEAR Normal CLEAR [facility] Comment on above: Performed By: #### C BC #### [facility] [address] [place] [address] Dr. Alexei Gonzales Color (U) YELLOW Normal YELLOW [facility] Comment on above: Performed By: #### C BC #### [facility] [address] [place] [address] Dr. Alexei Gonzales Crystals LM Nom (Urine sed) NONE SEEN Normal NONE SEEN [facility] Comment on above: Performed By: #### C BC #### [facility] [address] [place] [address] Dr. Alexei Gonzales Epithelial cells LM Ql (Urine sed) FEW Abnormal NONE SEEN /RARE The [facility] Comment on above: Performed By: #### C BC #### [facility] [address] [place] [address] Dr. Alexei Gonzales Glucose Ql (U) Negative Normal NEGATIVE [facility] Comment on above: Performed By: #### C BC #### [facility] [address] [place] [address] Dr. Alexei Gonzales Hemoglobin Ql (U) TRACE-LYSED Abnormal NEGATIVE The [facility] Comment on above: Performed By: #### C BC #### [facility] [address] [place] [address] Dr. Alexei Gonzales Ketones Ql (U) Negative Normal NEGATIVE [facility] Comment on above: Performed By: #### C BC #### [facility] [address] [place] [address] Dr. Alexei Gonzales LEUKOCYTES Negative Normal NEGATIVE [facility] Comment on above: Performed By: #### C BC #### [facility] [address] [place] [address] Dr. Alexei Gonzales MUCOUS NONE SEEN Normal NONE SEEN [facility] Comment on above: Performed By: #### C BC #### [facility] [address] [place] [address] Dr. Alexei Gonzales Nitrite Ql (U) Negative Normal NEGATIVE [facility] Comment on above: Performed By: #### C BC #### [facility] [address] [place] [address] Dr. Alexei Gonzales pH (U) 6.0 [pH] Normal 5-9 [facility] Comment on above: Performed By: #### C BC #### [facility] [address] [place] [address] Dr. Alexei Gonzales RBC 2-5 Abnormal 0-2 [facility] Comment on above: Performed By: #### C BC #### [facility] [address] [place] [address] Dr. Alexei Gonzales SPEC GRAVITY >=1.030 Abnormal 1.005-<=1.0 25 [facility] Comment on above: Performed By: #### C BC #### [facility] [address] [place] [address] Dr. Alexei Gonzales UA PROTEIN Negative Normal NEGATIVE/ TRACE [facility] Comment on above: Performed By: #### C BC #### [facility] [address] [place] [address] Dr. Alexei Gonzales Urobilinogen Qn (U) 0.2 {Albin'U}/dL Normal 0.2 - 1.0 [facility] Comment on above: Performed By: #### C BC #### [facility] [address] [place] [address] Dr. Alexei Gonzales WBC 0-2 Abnormal NONE SEEN The [facility] Comment on above: Performed By: #### C BC #### [facility] [address] [place] [address] Dr. Alexei Gonzales CBC AUTO DIFFon 11-30-2021 BASO # 0.1 103/ul Normal 0.0-0.1 [facility] Comment on above: Performed By: #### C VDAGS #### [facility] [address] [place] [address] Dr. Alexei Gonzales Basophils/100 WBC (Bld) 0.4 % Normal 0.2-2.0 [facility] Comment on above: Performed By: #### C VDAGS #### [facility] [address] [place] [address] Dr. Alexei Gonzales EO # 0.2 103/ul Normal 0.0-0.7 [facility] Comment on above: Performed By: #### C VDAGS #### [facility] [address] [place] [address] Dr. Alexei Gonzales Eosinophils/100 WBC (Bld) 1.9 % Normal 0.9-7.0 [facility] Comment on above: Performed By: #### C VDAGS #### [facility] [address] [place] [address] Dr. Alexei Gonzales Erythrocyte distribution width (RBC) [Ratio] 13.3 % Normal 11.0-15.0 [facility] Comment on above: Performed By: #### C VDAGS #### [facility] [address] [place] [address] Dr. Alexei Gonzales Hematocrit (Bld) [Volume fraction] 40.8 % Normal 36.0-48.0 [facility] Comment on above: Performed By: #### C VDAGS #### [facility] [address] [place] [address] Dr. Alexei Gonzales Hemoglobin (Bld) [Mass/Vol] 13.0 g/dL Normal 12.0-16.0 [facility] Comment on above: Performed By: #### C VDAGS #### [facility] [address] [place] [address] Dr. Alexei Gonzales IG # 0.05 10e3/ul Critically high 0.00-0.03 [facility] Comment on above: Performed By: #### C VDAGS #### [facility] [address] [place] [address] Dr. Alexei Gonzales IG % 0.4 % Normal 0.0-0.5 [facility] Comment on above: Performed By: #### C VDAGS #### [facility] [address] [place] [address] Dr. Alexei Gonzales LYMPH # 3.4 103/ul Normal 1.2-3.8 [facility] Comment on above: Performed By: #### C VDAGS #### [facility] [address] [place] [address] Dr. Alexei Gonzales Lymphocytes/100 WBC (Bld) 29.1 % Normal 20.5-60.0 [facility] Comment on above: Performed By: #### C VDAGS #### [facility] [address] [place] [address] Dr. Alexei Gonzales MANUAL DIFF REQ NO Normal [facility] Comment on above: Performed By: #### C VDAGS #### [facility] [address] [place] [address] Dr. Alexei Gonzales MCH (RBC) [Entitic mass] 27.3 pg Normal 26.7-34.0 [facility] Comment on above: Performed By: #### C VDAGS #### [facility] [address] [place] [address] Dr. Alexei Gonzales MCHC (RBC) [Mass/Vol] 31.9 g/dL Normal 29.9-35.2 [facility] Comment on above: Performed By: #### C VDAGS #### [facility] [address] [place] [address] Dr. Alexei Gonzales MCV (RBC) [Entitic vol] 85.5 fL Normal 81.0-99.0 [facility] Comment on above: Performed By: #### C VDAGS #### [facility] [address] [place] [address] Dr. Alexei Gonzales MONO # 0.7 103/ul Normal 0.3-0.8 [facility] Comment on above: Performed By: #### C VDAGS #### [facility] [address] [place] [address] Dr. Alexei Gonzales Monocytes/100 WBC (Bld) 5.9 % Normal 1.7-12.0 [facility] Comment on above: Performed By: #### C VDAGS #### [facility] [address] [place] [address] Dr. Alexei Gonzales NEUT # 7.4 103/ul Critically high 1.4-6.5 [facility] Comment on above: Performed By: #### C VDAGS #### [facility] [address] [place] [address] Dr. Alexei Gonzales Neutrophils/100 WBC (Bld) 62.3 % Normal 43.0-75.[address] [facility] Comment on above: Performed By: #### C VDAGS #### [facility] [address] [place] [address] Dr. Alexei Gonzales Platelet mean volume (Bld) [Entitic vol] 10.4 fL Normal 9.5-13.[address] [facility] Comment on above: Performed By: #### C VDAGS #### [facility] [address] [place] [address] Dr. Alexei Gonzales PLT 319 103/ul Normal 150-[address] [facility] Comment on above: Performed By: #### C VDAGS #### [facility] [address] [place] [address] Dr. Alexei Gonzales RBC 4.77 106/ul Normal 4.20-5.[address] [facility] Comment on above: Performed By: #### C VDAGS #### [facility] [address] [place] [address] Dr. Alexei Gonzales WBC 11.8 103/ul Critically high 4.0-11.0 [facility] Comment on above: Performed By: #### C VDAGS #### [facility] [address] [address] [address] Alexei Gonzales FREE T4on 11-30-2021 Free T4 [Mass/Vol] 1.20 ng/dL Normal 0.76-1.46 [facility] Comment on above: Performed By: #### F T4 #### [facility] [address] [place] [address] Dr. Alexei Gonzales GLYCOHEMOGLOBIN A1Con 2021 ADA RECOMMENDATION SEE BELOW Normal [facility] Comment on above: Result Comment: ADA RECOMMENDED LIMIT 4.0 - 6.0 ADA THERAPEUTIC TARGET < 7.0 ACTION SUGGESTED > 7.0 Performed By: #### A 1C #### [facility] [address] [place] [address] Dr. Alexei Gonzales Glucose [Mass/Vol] 126 mg/dL Normal [facility] Comment on above: Performed By: #### A 1C #### [facility] [address] [place] [address] Dr. Alexei Gonzales HbA1c (Bld) [Mass fraction] 6.0 % Normal 4.5-6.2 [facility] Comment on above: Performed By: #### A 1C #### [facility] [address] [place] [address] Dr. Alexei Gonzales LIPID PROFILEon 11-30-2021 CHOL-HDL RATIO NORM SEE BELOW Normal The [facility] Comment on above: Result Comment: 3.3 - 4.4 LOW RISK 4.4 - 7.1 AVERAGE RISK 7.1 - 11.0 MODERATE RISK >11.0 HIGH RISK Performed By: #### L IPID, CMP, TSH #### [facility] [address] [place] [address] Dr. Alexei Gonzales Cholesterol [Mass/Vol] 180 mg/dL Normal <=200 [facility] Comment on above: Performed By: #### L IPID, CMP, TSH #### [facility] [address] [place], [place] [id number] Dr. Alexei Gonzales Cholesterol in HDL [Mass/Vol] 40 mg/dL Normal 40-60 [facility] Comment on above: Performed By: #### L IPID, CMP, TSH #### [facility] [address] [place] [address] Dr. Alexei Gonzales Cholesterol in LDL [Mass/Vol] 114.4 mg/dL Normal [facility] Comment on above: Performed By: #### L IPID, CMP, TSH #### [facility] [address] [place] [address] Dr. Alexei Gonzales Cholesterol.total/ Cholesterol in HDL [Mass ratio] 4.5 {ratio} Normal [facility] Comment on above: Performed By: #### L IPID, CMP, TSH #### [facility] [address] [place] [address] Dr. Alexei Gonzales HDL NORMAL > or = 60 mg/dl - LO W CARDIOVASCULAR RISK <40 mg/dl - HIGH CARDIOVASCULAR RISK Normal [facility] Comment on above: Performed By: #### L IPID, CMP, TSH #### [facility] [address] [place] [address] Dr. Alexei Gonzales LDL CALC NORMAL SEE BELOW Normal [facility] Comment on above: Result Comment: <100 mg/dl OPTIMAL 100 - 129 mg/dl NEAR OR ABOVE OPTIMAL 130 - 159 mg/dl BORDERLINE HIGH 160 - 189 mg/dl HIGH >190 mg/dl VERY HIGH Performed By: #### L IPID, CMP, TSH #### [facility] [address] [place] [address] Dr. Alexei Gonzales Triglyceride [Mass/Vol] 128 mg/dL Normal <=[address] [facility] Comment on above: Performed By: #### L IPID, CMP, TSH #### [facility] [address] [place] [address] Dr. Alexei Gonzales VLDL CALC 25.6 mg/dL Normal [facility] Comment on above: Performed By: #### L IPID, CMP, TSH #### [facility] [address] [place] [address] Dr. Alexei Gonzales PROF 14(COMP METB)on 022 Albumin [Mass/Vol] 3.4 g/dL Normal 3.4-5.0 [facility] Comment on above: Performed By: #### L IPID, CMP, TSH #### [facility] [address] [address] [address] Alexei Gonzales Albumin/Globulin [Mass ratio] 0.9 {ratio} Normal [facility] Comment on above: Performed By: #### L IPID, CMP, TSH #### [facility] [address] [address] [address] Alexei Gonzales ALP [Catalytic activity/Vol] 81 U/L Normal 46-116 [facility] Comment on above: Performed By: #### L IPID, CMP, TSH #### [facility] [address] [place] [address] Dr. Alexei Gonzales ALT [Catalytic activity/Vol] 41 U/L Normal 14-59 [facility] Comment on above: Performed By: #### L IPID, CMP, TSH #### [facility] [address] [address] [address] Alexei Gonzales Anion gap [Moles/Vol] 10.6 mmol/L Normal [facility] Comment on above: Performed By: #### L IPID, CMP, TSH #### [facility] [address] [place] [address] Dr. Alexei Gonzales AST [Catalytic activity/Vol] 22 U/L Normal 15-37 [facility] Comment on above: Performed By: #### L IPID, CMP, TSH #### [facility] [address] [address] [address] Alexei Gonzales Bilirubin [Mass/Vol] 0.4 mg/dL Normal 0.2-1.0 [facility] Comment on above: Performed By: #### L IPID, CMP, TSH #### [facility] [address] [address] [address] Alexei Gonzales Calcium [Mass/Vol] 9.1 mg/dL Normal 8.5-10.1 [facility] Comment on above: Performed By: #### L IPID, CMP, TSH #### [facility] [address] [address] [address] Alexei Gonzales Chloride [Moles/Vol] 105 mmol/L Normal 98-[address] [facility] Comment on above: Performed By: #### L IPID, CMP, TSH #### [facility] [address] [address] [address] Alexei Gonzales CO2 [Moles/Vol] 25.6 mmol/L Normal 21.0-32.0 [facility] Comment on above: Performed By: #### L IPID, CMP, TSH #### [facility] [address] [address] [address] Alexei Gonzales Creatinine [Mass/Vol] 0.84 mg/dL Normal 0.55-1.02 [facility] Comment on above: Performed By: #### L IPID, CMP, TSH #### [facility] [address] [address] [address] Alexei Gonzales EGFR-AF MAURITANIAN >60 Normal >=60 [facility] Comment on above: Performed By: #### L IPID, CMP, TSH #### [facility] [address] [address] [address] Alexei Gonzales EGFR-NON AF MAURITANIAN >60 Normal >=60 [facility] Comment on above: Performed By: #### L IPID, CMP, TSH #### [facility] [address] [address] [address] Alexei Gonzales Globulin (S) [Mass/Vol] 4.0 g/dL Normal [facility] Comment on above: Performed By: #### L IPID, CMP, TSH #### [facility] [address] [address] [address] Alexei Gonzales Glucose [Mass/Vol] 113 mg/dL Critically high 74-106 [facility] Comment on above: Performed By: #### L IPID, CMP, TSH #### [facility] [address] [address] [address] Alexei Gonzales Potassium [Moles/Vol] 4.2 mmol/L Normal 3.5-5.1 [facility] Comment on above: Performed By: #### L IPID, CMP, TSH #### [facility] [address] [place] [address] Dr. Alexei Gonzales Protein [Mass/Vol] 7.4 g/dL Normal 6.4-8.2 [facility] Comment on above: Performed By: #### L IPID, CMP, TSH #### [facility] [address] [place] [address] Dr. Alexei Gonzales Sodium [Moles/Vol] 137 mmol/L Normal 136-145 [facility] Comment on above: Performed By: #### L IPID, CMP, TSH #### [facility] [address] [place] [address] Dr. Alexei Gonzales Urea nitrogen [Mass/Vol] 14.0 mg/dL Normal 7.0-18.0 [facility] Comment on above: Performed By: #### L IPID, CMP, TSH #### [facility] [address] [place] [address] Dr. Alexei Gonzales Urea nitrogen/Creatinin e [Mass ratio] 16.7 mg/mg Normal [facility] Comment on above: Performed By: #### L IPID, CMP, TSH #### [facility] [address] [place] [address] Dr. Alexei Gonzales TSHon 11-30-2021 TSH 1.150 uIU/mL Normal 0.358-3.740 [facility] Comment on above: Performed By: #### L IPID, CMP, TSH #### [facility] [address] [place] [address] Dr. Alexei Gonzales UA RANDOM W/MICROSCOPICon BACTERIA SMALL Abnormal NONE SEEN The [facility] Comment on above: Performed By: #### C BC #### [facility] [address] [place] [address] Dr. Alexei Gonzales Bilirubin Ql (U) Negative Normal NEGATIVE [facility] Comment on above: Performed By: #### C BC #### [facility] [address] [place] [address] Dr. Alexei Gonzales CAST NONE SEEN Normal NONE SEEN The [facility] Comment on above: Performed By: #### C BC #### [facility] [address] [place] [address] Dr. Alexei Gonzales Clarity (U) CLEAR Normal CLEAR [facility] Comment on above: Performed By: #### C BC #### [facility] [address] [place] [address] Dr. Alexei Gonzales Color (U) YELLOW Normal YELLOW [facility] Comment on above: Performed By: #### C BC #### [facility] [address] [place] [address] Dr. Alexei Gonzales Crystals LM Nom (Urine sed) NONE SEEN Normal NONE SEEN [facility] Comment on above: Performed By: #### C BC #### [facility] [address] [place] [address] Dr. Alexei Gonzales Epithelial cells LM Ql (Urine sed) MODERATE Abnormal NONE SEEN /RARE [facility] Comment on above: Performed By: #### C BC #### [facility] [address] [place] [address] Dr. Alexei Gonzales Glucose Ql (U) Negative Normal NEGATIVE [facility] Comment on above: Performed By: #### C BC #### [facility] [address] [place] [address] Dr. Alexei Gonzales Hemoglobin Ql (U) TRACE-INTACT Abnormal NEGATIVE [facility] Comment on above: Performed By: #### C BC #### [facility] [address] [place] [address] Dr. Alexei Gonzales Ketones Ql (U) TRACE Abnormal NEGATIVE [facility] Comment on above: Performed By: #### C BC #### [facility] [address] [place] [address] Dr. Alexei Gonzales LEUKOCYTES Negative Normal NEGATIVE [facility] Comment on above: Performed By: #### C BC #### [facility] [address] [place] [address] Dr. Alexei Gonzales MUCOUS TRACE Abnormal NONE SEEN [facility] Comment on above: Performed By: #### C BC #### [facility] [address] [place] [address] Dr. Alexei Gonzales Nitrite Ql (U) Negative Normal NEGATIVE [facility] Comment on above: Performed By: #### C BC #### [facility] [address] [place] [address] Dr. Alexei Gonzales pH (U) 5.5 [pH] Normal 5-9 [facility] Comment on above: Performed By: #### C BC #### [facility] [address] [place] [address] Dr. Alexei Gonzales RBC 2-5 Abnormal 0-2 [facility] Comment on above: Performed By: #### C BC #### [facility] [address] [place] [address] Dr. Alexei Gonzales SPEC GRAVITY >=1.030 Abnormal 1.005-<=1.0 25 [facility] Comment on above: Performed By: #### C BC #### [facility] [address] [place] [address] Dr. Alexei Gonzales UA PROTEIN Negative Normal NEGATIVE/ TRACE [facility] Comment on above: Performed By: #### C BC #### [facility] [address] [place] [address] Dr. Alexei Gonzales Urobilinogen Qn (U) 0.2 {Albin'U}/dL Normal 0.2 - 1.0 [facility] Comment on above: Performed By: #### C BC #### [facility] [address] [place] [address] Dr. Alexei Gonzales WBC 2-5 Abnormal NONE SEEN The [facility] Comment on above: Performed By: #### C BC #### [facility] [address] [place] [address] Dr. Alexei Gonzales CBC AUTO DIFFon 11-22-2021 BASO # 0.1 103/ul Normal 0.0-0.1 [facility] Comment on above: Performed By: #### C BC #### [facility] [address] [place] [address] Dr. Alexei Gonzales Basophils/100 WBC (Bld) 0.4 % Normal 0.2-2.0 [facility] Comment on above: Performed By: #### C BC #### [facility] [address] [place] [address] Dr. Alexei Gonzales EO # 0.2 103/ul Normal 0.0-0.7 [facility] Comment on above: Performed By: #### C BC #### [facility] [address] [place] [address] Dr. Alexei Gonzales Eosinophils/100 WBC (Bld) 1.4 % Normal 0.9-7.0 [facility] Comment on above: Performed By: #### C BC #### [facility] [address] [place] [address] Dr. Alexei Gonzales Erythrocyte distribution width (RBC) [Ratio] 13.2 % Normal 11.0-15.0 [facility] Comment on above: Performed By: #### C BC #### [facility] [address] [place] [address] Dr. Alexei Gonzales Hematocrit (Bld) [Volume fraction] 38.8 % Normal 36.0-48.0 [facility] Comment on above: Performed By: #### C BC #### [facility] [address] [place] [address] Dr. Alexei Gonzales Hemoglobin (Bld) [Mass/Vol] 12.6 g/dL Normal 12.0-16.0 [facility] Comment on above: Performed By: #### C BC #### [facility] [address] [place] [address] Dr. Alexei Gonzales IG # 0.04 10e3/ul Critically high 0.00-0.03 [facility] Comment on above: Performed By: #### C BC #### [facility] [address] [place] [address] Dr. Alexei Gonzales IG % 0.3 % Normal 0.0-0.5 [facility] Comment on above: Performed By: #### C BC #### [facility] [address] [place] [address] Dr. Alexei Gonzales LYMPH # 3.4 103/ul Normal 1.2-3.8 [facility] Comment on above: Performed By: #### C BC #### [facility] [address] [place] [address] Dr. Alexei Gonzales Lymphocytes/100 WBC (Bld) 26.9 % Normal 20.5-60.0 [facility] Comment on above: Performed By: #### C BC #### [facility] [address] [place] [address] Dr. Alexei Gonzales MANUAL DIFF REQ NO Normal [facility] Comment on above: Performed By: #### C BC #### [facility] [address] [place] [address] Dr. Alexei Gonzales MCH (RBC) [Entitic mass] 27.3 pg Normal 26.7-34.[address] [facility] Comment on above: Performed By: #### C BC #### [facility] [address] [place] [address] Dr. Alexei Gonzales MCHC (RBC) [Mass/Vol] 32.5 g/dL Normal 29.9-35.[address] [facility] Comment on above: Performed By: #### C BC #### [facility] [address] [place] [address] Dr. Alexei Gonzales MCV (RBC) [Entitic vol] 84.2 fL Normal 81.0-99.[address] [facility] Comment on above: Performed By: #### C BC #### [facility] [address] [place] [address] Dr. Alexei Gonzales MONO # 0.6 103/ul Normal 0.3-0.[address] [facility] Comment on above: Performed By: #### C BC #### [facility] [address] [place] [address] Dr. Alexei Gonzales Monocytes/100 WBC (Bld) 5.1 % Normal 1.7-12.[address] [facility] Comment on above: Performed By: #### C BC #### [facility] [address] [place] [address] Dr. Alexie Gonzales NEUT # 8.3 103/ul Critically high 1.4-6.5 [facility] Comment on above: Performed By: #### C BC #### [facility] [address] [place] [address] Dr. Alexei Gonzales Neutrophils/100 WBC (Bld) 65.9 % Normal 43.0-75.0 [facility] Comment on above: Performed By: #### C BC #### [facility] [address] [place] [address] Dr. Alexei Gonzales Platelet mean volume (Bld) [Entitic vol] 10.1 fL Normal 9.5-13.5 [facility] Comment on above: Performed By: #### C BC #### [facility] [address] [address] [address] Alexei Gonzales PLT 373 103/ul Normal 150-450 [facility] Comment on above: Performed By: #### C BC #### [facility] [address] [place] [address] Dr. Alexei Gonzales RBC 4.61 106/ul Normal 4.20-5.40 [facility] Comment on above: Performed By: #### C BC #### [facility] [address] [place] [address] Dr. Alexei Gonzales WBC 12.5 103/ul Critically high 4.0-11.0 [facility] Comment on above: Performed By: #### C BC #### [facility] [address] [place] [address] Dr. Alexei Gonzales PREG HCG QUALon 11-22-2021 , QUAL Negative Normal NEGATIVE [facility] Comment on above: Performed By: #### C BC #### [facility] [address] [place] [address] Dr. Alexei Gonzales PROF 14(COMP METB)on 022 Albumin [Mass/Vol] 3.3 g/dL Critically low 3.4-5.0 [facility] Comment on above: Performed By: #### C BC #### [facility] [address] [place] [address] Dr. Alexei Gonzales Albumin/Globulin [Mass ratio] 0.8 {ratio} Normal [facility] Comment on above: Performed By: #### C BC #### [facility] [address] [place], [place] [id number] Dr. Alexei Gonzales ALP [Catalytic activity/Vol] 89 U/L Normal 46-116 [facility] Comment on above: Performed By: #### C BC #### [facility] [address] [place] [address] Dr. Alexei Gonzales ALT [Catalytic activity/Vol] 43 U/L Normal 14-59 [facility] Comment on above: Performed By: #### C BC #### [facility] [address] [place] [address] Dr. Alexei Gonzales Anion gap [Moles/Vol] 13.4 mmol/L Normal [facility] Comment on above: Performed By: #### C BC #### [facility] [address] [place] [address] Dr. Alexei Gonzales AST [Catalytic activity/Vol] 17 U/L Normal 15-37 [facility] Comment on above: Performed By: #### C BC #### [facility] [address] [place] [address] Dr. Alexei Gonzales Bilirubin [Mass/Vol] 0.3 mg/dL Normal 0.2-1.0 [facility] Comment on above: Performed By: #### C BC #### [facility] [address] [place] [address] Dr. Alexei Gonzales Calcium [Mass/Vol] 8.9 mg/dL Normal 8.5-10.1 [facility] Comment on above: Performed By: #### C BC #### [facility] [address] [place] [address] Dr. Alexei Gonzales Chloride [Moles/Vol] 103 mmol/L Normal 98-[address] [facility] Comment on above: Performed By: #### C BC #### [facility] [address] [place] [address] Dr. Alexei Gonazles CO2 [Moles/Vol] 26.4 mmol/L Normal 21.0-32.0 [facility] Comment on above: Performed By: #### C BC #### [facility] [address] [place] [address] Dr. Alexei Gonzales Creatinine [Mass/Vol] 0.91 mg/dL Normal 0.55-1.02 [facility] Comment on above: Performed By: #### C BC #### [facility] [address] [address] [address] Alexei Gonzales EGFR-AF MAURITANIAN >60 Normal >=60 [facility] Comment on above: Performed By: #### C BC #### [facility] [address] [address] [address] Alexei Gonzales EGFR-NON AF MAURITANIAN >60 Normal >=60 [facility] Comment on above: Performed By: #### C BC #### [facility] [address] [address] [address] Alexei Gonzales Globulin (S) [Mass/Vol] 4.1 g/dL Normal [facility] Comment on above: Performed By: #### C BC #### [facility] [address] [place] [address] Dr. Alexei Gonzales Glucose [Mass/Vol] 151 mg/dL Critically high 74-106 [facility] Comment on above: Performed By: #### C BC #### [facility] [address] [address] [address] Alexei Gonzales Potassium [Moles/Vol] 3.8 mmol/L Normal 3.5-5.1 [facility] Comment on above: Performed By: #### C BC #### [facility] [address] [place] [address] Dr. Alexei Gonzales Protein [Mass/Vol] 7.4 g/dL Normal 6.4-8.2 [facility] Comment on above: Performed By: #### C BC #### [facility] [address] [address] [address] Alexei Gonzales Sodium [Moles/Vol] 139 mmol/L Normal 136-145 [facility] Comment on above: Performed By: #### C BC #### [facility] [address] [address] [address] Alexei Gonzales Urea nitrogen [Mass/Vol] 12.0 mg/dL Normal 7.0-18.0 [facility] Comment on above: Performed By: #### C BC #### [facility] [address] [address] [address] Alexei Gonzales Urea nitrogen/Creatinin e [Mass ratio] 13.2 mg/mg Normal [facility] Comment on above: Performed By: #### C BC #### [facility] [address] [place], [place] [address] Dr. Alexei Gonzales TROPONIN, HIGH SENSITIVITYon 11-22-2021 HSTROP 5.0 pg/mL Normal 4.0-51.3 [facility] Comment on above: Result Comment: CUT- OFF POINTS HAVE BEEN ESTABLISHED BASED ON THE FOURTH UNIVERSAL DEFINITIONS OF MYOCARDIAL INFARCTION. THE UPPER REFERENCE LIMIT (URL) OF TROPONIN, DEFINED THE 99TH PERCENTILE OF cTnI DISTRIBUTION IN A REFERENCE POPULATION, HAS BEEN CONFIRMED THE DECISION THRESHOLD FOR [place] DIAGNOSIS. Performed By: #### C BC #### [facility] [address] [place] [address] Dr. Alexei Gonzales XR CHEST 1 Von [...] by: LUDMILA WINKLER Date: 2021-11-21 23:31 Normal [facility] PAP ACOG PANEL 2: 30 to 65on 10-22-2021 . . Normal [facility] Comment on above: Result Comment: Perf ormed at: WB Performed By: #### [id number] #### [facility] [address] [address] [address] Alexei Gonzales Age Gdln ACOG Testing 30-65 Normal [facility] Comment on above: Performed By: #### [id number] #### [facility] [address] [address] [address] Alexei Gonzales DIAGNOSIS: Comment Normal [facility] Comment on above: Result Comment: NEGA TIVE FOR INTRAEPITHELIAL LESION OR MALIGNANCY. Performed at: WB Performed By: #### [id number] #### [facility] [address] [place] [address] Dr. Alexei Gonzales HPV Aptima Negative Normal Negative [facility] Comment on above: Result Comment: This nucleic acid amplification test detects fourteen high-risk HPV types (16,18,31,33,35,39,45,51,52,56,58,59,66,68) without differentiation. Performed at: =G Performed By: #### [id number] #### [facility] [address] [place] [address] Dr. Alexei Gonzales Methodology: Comment Normal [facility] Comment on above: Result Comment: This liquid based ThinPrep(R) pap test was screened with the use of an image guided system. Performed at: WB Performed By: #### [id number] #### [facility] [address] [place] [address] Dr. Alexei Gonzales Note: Comment Normal [facility] Comment on above: Result Comment: The Pap smear is a screening test designed to aid in the detection of premalignant and malignant conditions of the uterine cervix. It is not a diagnostic procedure and should not be used as the sole means of detecting cervical cancer. Both false-positive and false-negative reports do occur. . Performed at: WB Performed By: #### [id number] #### [facility] [address] [place] [address] Dr. Alexei Gonzales Performed by: Comment Normal [facility] Comment on above: Result Comment: Elis Abel, Milking Machine Technician (ASCP) Performed at: WB Performed By: #### [id number] #### [facility] [address] [place] [address] Dr. Alexei Gonzales Specimen adequacy: Comment Normal [facility] Comment on above: Result Comment: Sati sfactory for evaluation. Endocervical and/or squamous metaplastic cells (endocervical component) are present. Performed at: WB Performed By: #### [id number] #### [facility] [address] [place] [address] Dr. Alexei Gonzales Vital Signs Date Time Vital Sign Value Performing Clinician Facility 12-09-2024 16:35-0500 Body height 162.6 cm Whit Ca EVENT MANAGER Work Phone: [facility] 04-15-2024 16:35-0500 Body mass index (BMI) [Ratio] 49.47 kg/m2 Whit Ca EVENT MANAGER Work Phone: [facility] 04-15-2024 16:35-0500 Body temperature 98.49 [degF] Whit Ca EVENT MANAGER Work Phone: [facility] 04-15-2024 16:35-0500 Body weight 130.73 kg Whit Ca EVENT MANAGER Work Phone: [facility] 04-15-2024 16:35-0500 Diastolic blood pressure 80 mm[Hg] Whit Ca EVENT MANAGER Work Phone: [facility] 04-15-2024 16:35-0500 Heart rate 79 /min Whit Ca EVENT MANAGER Work Phone: [facility] 04-15-2024 16:35-0500 Respiratory rate 20 /min Whit Ca EVENT MANAGER Work Phone: [facility] 04-15-2024 16:35-0500 SaO2% (BldA) [Mass fraction] 99 % Whit Ca EVENT MANAGER Work Phone: [facility] 04-15-2024 16:35-0500 Systolic blood pressure 128 mm[Hg] Whit Ca EVENT MANAGER Work Phone: [facility] 03-06-2024 13:19-0400 Body height 162.6 cm Anam GumGum DO Work Phone: [facility] 03-06-2024 13:19-0400 Body mass index (BMI) [Ratio] 48.58 kg/m2 Copytele DO Work Phone: [facility] 03-06-2024 13:19-0400 Body weight 128.37 kg Anam GumGum DO Work Phone: [facility] 03-06-2024 13:19-0400 Diastolic blood pressure 76 mm[Hg] Anam Isael DO Work Phone: [facility] 03-06-2024 13:19-0400 Heart rate 72 /min Anam Isael DO Work Phone: [facility] 03-06-2024 13:19-0400 Respiratory rate 14 /min Anam June DO Work Phone: [facility] 03-06-2024 13:19-0400 SaO2% (BldA) [Mass fraction] 97 % Anam June DO Work Phone: [facility] 03-06-2024 13:19-0400 Systolic blood pressure 122 mm[Hg] Anam June DO Work Phone: [facility] 03-05-2024 15:53-0400 Body height 162.6 cm Whit Desiraez EVENT MANAGER Work Phone: [facility] 03-05-2024 15:53-0400 Body mass index (BMI) [Ratio] 48.65 kg/m2 Whit Desiraez EVENT MANAGER Work Phone: [facility] 03-05-2024 15:53-0400 Body temperature 97.81 [degF] Whit Desiraez EVENT MANAGER Work Phone: [facility] 03-05-2024 15:53-0400 Body weight 128.55 kg Whit Carmenhholz EVENT MANAGER Work Phone: [facility] 03-05-2024 15:53-0400 Diastolic blood pressure 104 mm[Hg] Whit Aichholz EVENT MANAGER Work Phone: [facility] 03-05-2024 15:53-0400 Heart rate 98 /min Whit Aichholz EVENT MANAGER Work Phone: [facility] 03-05-2024 15:53-0400 Respiratory rate 20 /min Whit Carmenhdelvisz EVENT MANAGER Work Phone: [facility] 03-05-2024 15:53-0400 SaO2% (BldA) [Mass fraction] 98 % Whit Hodgedelvisjesus EVENT MANAGER Work Phone: [facility] 03-05-2024 15:53-0400 Systolic blood pressure 144 mm[Hg] Whit Ca EVENT MANAGER Work Phone: [facility] 02-28-2024 15:48-0400 Body height 162.6 cm Mark Josef DO Work Phone: [facility] 02-28-2024 15:48-0400 Body mass index (BMI) [Ratio] 49.23 kg/m2 Mark Josef DO Work Phone: [facility] 02-28-2024 15:48-0400 Body weight 130.09 kg Mark Josef DO Work Phone: [facility] 02-28-2024 15:48-0400 Diastolic blood pressure 86 mm[Hg] Mark Josef DO Work Phone: [facility] 02-28-2024 15:48-0400 Heart rate 88 /min Mark Josef DO Work Phone: [facility] 02-28-2024 15:48-0400 SaO2% (BldA) [Mass fraction] 100 % Mark Josef DO Work Phone: [facility] 02-28-2024 15:48-0400 Systolic blood pressure 132 mm[Hg] Mark Josef DO Work Phone: [facility] 04-21-2023 09:57-0500 Blood Pressure Location Audicorry [facility] 04-21-2023 09:57-0500 Diastolic blood pressure 80 mm[Hg] Audi FRANCO[facility] 04-21-2023 09:57-0500 Heart rate 68 /min Audi FRANCOIS [facility] 04-21-2023 09:57-0500 Respiratory rate 16 /min Audi FRANCO[facility] 04-21-2023 09:57-0500 Systolic blood pressure 135 mm[Hg] Audi FRANCOIS [facility] 04-08-2022 14:15-0500 Body height 162.56 cm Luciana Flores Other [facility] Other 04-08-2022 14:15-0500 Body mass index (BMI) [Ratio] 50.46 kg/m2 Luciana Flores Other [facility] Other 04-08-2022 14:15-0500 Body temperature 98.4 [degF] Luciana Flores Other [facility] Other 04-08-2022 14:15-0500 Body weight 133.36 kg Luciana Flores Other [facility] Other 04-08-2022 14:15-0500 Respiratory rate 18 /min Luciana Flores Other [facility] Other 04-08-2022 14:15-0500 SaO2% (BldA) [Mass fraction] 99 % Luciana Flores Other [facility] Other 04-04-2022 09:23-0500 Blood Pressure Location Audi [facility] 04-04-2022 09:23-0500 Diastolic blood pressure 89 mm[Hg] Audi FRANCOIS [facility] 04-04-2022 09:23-0500 Heart rate 75 /min Audi FRANCOIS [facility] 04-04-2022 09:23-0500 Respiratory rate 16 /min Audi FRANCO[facility] 04-04-2022 09:23-0500 Systolic blood pressure 136 mm[Hg] Audi FRANCOIS [facility] 12-30-2021 12:56-0400 Body height 162.6 cm Taiwo Torres MD Work Phone: [facility] 12-30-2021 12:56-0400 Body weight 136.08 kg Taiwo Torres MD Work Phone: [facility] 12-30-2021 12:56-0400 Diastolic blood pressure 72 mm[Hg] Taiwo Torres MD Work Phone: [facility] 12-30-2021 12:56-0400 Systolic blood pressure 116 mm[Hg] Taiwo Torres MD Work Phone: [facility] 08-27-2021 17:50-0400 Body height 162.56 cm Luciana Flores Other [facility] Other 08-27-2021 17:50-0400 Body mass index (BMI) [Ratio] 49.77 kg/m2 Luciana Flores Other [facility] Other 08-27-2021 17:50-0400 Body temperature 97.7 [degF] Luciana Flores Other [facility] Other 08-27-2021 17:50-0400 Body weight 131.54 kg Luciana Flores Other [facility] Other 08-27-2021 17:50-0400 Respiratory rate 18 /min Luciana Flores Other [facility] Other 08-27-2021 17:50-0400 SaO2% (BldA) [Mass fraction] 98 % Luciana Flores Other [facility] Other Encounters Encounter Date Encounter Type Care Provider Facility Start: 04-29-2024 ambulatory Audi Felton ALESSANDRO Chaudhari ty:[facility] Start: 04-23-2024 End: 04-23-2024 Bamboo flowsheet Rhjoseph Samson FILTER TENDER [facility] Start: 04-23-2024 End: 04-23-2024 Bamboo flowsheet Rhanda [place] FILTER TENDER [facility] Start: 04-15-2024 End: 04-15-2024 Initial preventive medicine new pt age 18-39yrs Whit Ca EVENT MANAGER Work Phone: [facility] Comment on above: Well woman exam with routine gynecological exam (Primary Dx); Morbid (severe) obesity due to excess calories (CMS/[facility]) Start: 04-15-2024 End: 04-15-2024 ambulatory WHIT CA Not Available Start: 04-15-2024 End: 04-15-2024 Bamboo flowsheet Whit Ca EVENT MANAGER Work Phone: [facility] Start: 04-15-2024 End: 04-23-2024 Bamboo flowsheet Whit Ca EVENT MANAGER Work Phone: [facility] Start: 04-15-2024 End: 04-23-2024 Clinisync Result Encounter Whit Ca EVENT MANAGER Work Phone: [facility] Unsolicited Start: 04-15-2024 End: 04-15-2024 Patient encounter procedure Whit Ca EVENT MANAGER Work Phone: [facility] Start: 04-15-2024 End: 04-15-2024 Patient encounter status Whit Ca EVENT MANAGER Work Phone: [facility] Start: 04-09-2024 End: 04-09-20[address] [place] [facility] Start: 04-09-2024 End: 04-09-2024 [address]ia [facility] Start: 04-09-2024 End: 04-09-2024 Clinical Support Patric Valdivia [facility] Comment on above: PTSD (post-traumatic stress disorder) (CMS/HCC); Major depressive disorder, single episode, moderate with anxious distress (HCC) (CMS/HCC); Work-related stress Start: 04-09-2024 End: 04-09-2024 Office outpatient new 45 minutes Augustin Girard MD Work Phone: [facility] Comment on above: Incisional hernia, w ithout obstruction or gangrene (Primary Dx) Start: 03-20-2024 End: 03-20-2024 Clinical Support Patric Valdivia [facility] Comment on above: PTSD (post-traumatic stress disorder) (CMS/HCC); Major depressive disorder, single episode, moderate with anxious distress (HCC) (CMS/HCC); Partner relationship problems; Work-related stress Start: 03-20-2024 End: 03-20-[address] [facility] Start: 03-20-2024 End: 03-20-2024 [address] [facility] Start: 03-06-2024 End: 03-06-2024 Bamboo flowsheet Anam Isael DO Work Phone: [facility] Start: 03-06-2024 End: 03-06-2024 Bamboo flowsheet Anam Siael DO Work Phone: [facility] Start: 03-06-2024 End: 03-06-2024 Office outpatient visit 25 minutes Anam Isael DO Work Phone: [facility] Comment on above: Ventral hernia witho ut obstruction or gangrene (Primary Dx) Start: 03-06-2024 End: 03-06-2024 ambulatory ANAM ISAEL Not Available Start: 03-05-2024 End: 03-05-2024 Office outpatient visit 25 minutes Whit Aichholz EVENT MANAGER Work Phone: [facility] Comment on above: Ventral hernia witho ut obstruction or gangrene (Primary Dx); Pre-diabetes; Primary hypertension (CMS/HCC); Polycystic ovaries; Pelvic pain Start: 03-05-2024 End: 03-05-2024 ambulatory WHIT CA Not Available Start: 03-04-2024 End: 03-04-2024 Clinical Support Patric Valdivia [facility] Comment on above: PTSD (post-traumatic stress disorder) (CMS/HCC); Major depressive disorder, single episode, moderate with anxious distress (HCC) (CMS/HCC); Partner relationship problems Start: 03-04-2024 End: 03-04-2024 Bamboo flowsheet Patric Valdivia [facility] Start: 03-04-2024 End: 03-04-2024 Bamboo flowsheet Patric Valdivia [facility] Start: 02-28-2024 End: 02-28-2024 Office consultation new/estab patient 60 min Mark Josef DO Work Phone: [facility] Comment on above: FLAVIO (obstructive sle ep apnea) (Primary Dx); Hypersomnia; Snoring Start: 02-28-2024 End: 02-28-2024 ambulatory MARK JOSEF Not Available Start: 02-28-2024 End: 02-28-2024 Bamboo flowsheet Mark Josef DO Work Phone: [facility] Start: 02-28-2024 End: 02-28-2024 Bamboo flowsheet Mark Josef DO Work Phone: [facility] Start: 02-27-2024 End: 02-27-2024 Refill Whit Ca EVENT MANAGER Work Phone: [facility] Comment on above: Primary hypertension (CMS/HCC) Start: 02-06-2024 End: 02-06-2024 Clinical Support Patric Valdivia [facility] Comment on above: PTSD (post-traumatic stress disorder) (CMS/HCC); Major depressive disorder, single episode, moderate with anxious distress (HCC) (CMS/HCC); Partner relationship problems Start: 02-06-2024 End: 02-06-2024 Bamboo flowsheet Rhanda [place] FILTER TENDER [facility] Start: 02-06-2024 End: 02-06-2024 Bamboo flowsheet Rhanda [place] FILTER TENDER [facility] Start: 01-30-2024 End: 01-30-2024 ambulatory WHIT AICHHOLZ Not Available Start: 01-24-2024 End: 01-25-2024 ambulatory RHANDA SAMSON Not Available Start: 01-24-2024 End: 01-24-2024 Bamboo flowsheet Rhanda [place] FILTER T[facility]ER [facility] Start: 01-24-2024 End: 01-24-2024 Bamboo flowsheet Rhanda Samson FILTER TENDER [facility] Start: 01-09-2024 End: 01-09-2024 ambulatory RHANDA SAMSON [...] Start: 08-29-2023 End: 08-29-2023 ambulatory NON STAFF Facility:[facility] Start: 08-29-2023 End: 08-29-2023 ambulatory PHYSICIAN [facility] Work Phone: Start: 08-29-2023 End: 08-29-2023 Departed Referred PHYSICIAN [facility] Start: 08-21-2023 End: 08-21-2023 ambulatory ANAM ISAEL Not Available Start: 08-01-2023 End: 08-01-2023 ambulatory WHIT AICHHOLZ Not Available Start: 07-12-2023 End: 07-12-2023 ambulatory ADA SELF Not Available Start: 04-21-2023 End: 04-21-2023 Patient encounter procedure Audi FRANCOIS [facility] Start: 09-20-2022 End: 09-20-2022 ambulatory TEAMCENTER SOLUTION ARCHITECT WHIT AICHHOLZ Facility:[facility] Start: 08-31-2022 End: 08-31-2022 ambulatory TEAMCENTER SOLUTION ARCHITECT WHIT AICHHOLZ Facility:[facility] Start: 05-13-2022 End: 05-13-2022 ambulatory TEAMCENTER SOLUTION ARCHITECT WHIT AICHHOLZ Facility:[facility] Start: 04-18-2022 End: 04-18-2022 ambulatory TEAMCENTER SOLUTION ARCHITECT WHIT AICHHOLZ Facility:[facility] Start: 04-15-2022 End: 04-16-2022 ambulatory TEAMCENTER SOLUTION ARCHITECT WHIT AICHHOLZ Facility:[facility] Start: 04-08-2022 End: 04-08-2022 ambulatory Luciana Flores Other [facility] Other Start: 04-08-2022 Office outpatient vi sit 25 minutes Luciana Flores [facility] Start: 04-04-2022 End: 04-04-2022 Patient encounter procedure Audi FRANCOIS [facility] Start: 01-18-2022 Telephone encounter Sissy hunter MD Work Phone: [facility] Comment on above: Appointment Start: 01-17-2022 End: 01-18-2022 ambulatory TEAMCENTER SOLUTION ARCHITECT WHIT AICHHOLZ Facility:[facility] Start: 01-14-2022 End: 01-14-2022 ambulatory Taiwo Torres MD Work Phone: [facility] Comment on above: info Primary amenorrhea ( Primary Dx) Start: 01-14-2022 E-mail encounter [facility] m caregiver Taiwo Torres MD Work Phone: [facility] Start: 01-14-2022 End: 01-14-2022 Telemedicine consultation with patient Taiwo Torres MD Work Phone: [facility] Start: 12-30-2021 End: 12-31-2021 ambulatory TAIWO TORRES Facility:[facility] Start: 12-30-2021 End: 12-30-2021 Patient encounter procedure Taiwo Torres MD Work Phone: [facility] Comment on above: Primary amenorrhea ( Primary Dx) Start: 12-21-2021 End: 12-22-2021 ambulatory TEAMCENTER SOLUTION ARCHITECT WHIT CA Facility:[facility] Start: 11-30-2021 End: 12-01-2021 ambulatory TEAMCENTER SOLUTION ARCHITECT WHIT CA Facility:[facility] Start: 11-22-2021 End: 11-22-[address] KIRTI CROCKETT Facility:[facility] Start: 10-19-2021 End: 10-19-[address] TIKI LONGO . Facility:[facility] Start: 08-27-2021 End: 08-27-2021 ambulatory Luciana Flores Other [facility] Other Start: 08-27-2021 Office outpatient vi sit 15 minutes Luciana Flores [facility] Procedures Date Procedure Procedure Detail Performing Clinician Start: 04-15-2024 IGP,APTIMA HPV,AGE GDLN Whit Ca EVENT MANAGER Work Phone: Start: 03-05-2024 Hemoglobin glycosylated a1c Whit Ca EVENT MANAGER Work Phone: Start: 04-18-2023 Transurethral cystoscopy uAdi FRANCOIS Start: 12-30-2021 Antibody screen TAIWO TORRES Comment on above: Order Comment: Speci men Type: BLOOD SPECIMENOrdering Facility: [facility] Address: [address] [place], [place] [id number] Performed By: #### T SCR ####CC MAIN BLOOD BANKCLIA [id number] [address] Start: 10-19-2021 Microscopic observat ion [Identifier] in Cervix by Cyto stain Zacjoseph Samson FILTER TENDER Plan of Treatment Date Care Activity Detail Author Start: 10-19-2024 Screening for malign ant neoplasm of cervix [facility] Start: 08-19-2024 End: 08-19-2024 Patient encounter procedure 08/19/2024 4:00 PM EDT Office Visit [facility] [id number] [phone] Cheyenne Ahumada NP [address] [facility] [address] [place], [place] [facility] Start: 05-31-2024 End: 05-31-2024 Admission to same day surgery center 05/31/2024 10:00 AM EST - 05/31/2024 2:15 PM EST Surgery [facility] Surgery [address] [place] [phone] Augustin Girard MD [address] [place] [address] [place] [phone] DAVINCI REPAIR HERNIA VENTRAL [facility] Comment on above: DAVINCI REPAIR HERNI A VENTRAL Start: 05-31-2024 End: 05-31-2024 DAVINCI RECONSTRUCTION ABDOMINAL WALL DAVINCI RECONSTRUCTION ABDOMINAL WALL INCISIONAL HERNIA 05/31/2024 10:00 AM EST [facility] Start: 05-31-2024 End: 05-31-2024 DAVINCI REPAIR HERNIA VENTRAL DAVINCI REPAIR HERNIA VENTRAL INCISIONAL HERNIA 05/31/2024 10:00 AM EST [facility] Start: 05-31-2024 Subsequent hospital visit by physician 05/31/2024 10:00 AM EST Hospital Encounter [facility] Surgery [address] [place] [phone] Augustin Girard MD [address] [place] [address] [place] [phone] [facility] Start: 05-20-2024 End: 05-20-2024 Clinical Support 05/20/2024 4:00 PM EST Clinical Support [facility] [address] [place] [address] Ptaric Valdivia [facility]PC [facility] Start: 05-17-2024 End: 05-17-2024 Admission to establishment 05/17/2024 9:30 AM EST Support Visit [facility] On [address] [phone] [facility] Start: 05-09-2024 End: 05-09-2024 Patient encounter procedure 05/09/2024 3:40 PM EST Office Visit [facility] [address] [place] [address] Whit Ca, EVENT MANAGER [address] [place] [address] [facility] Start: 04-25-2024 End: 04-25-2024 Patient encounter procedure 04/25/2024 3:20 PM EST Office Visit [facility] [address] [place] [address] Whit Ca, EVENT MANAGER [address] [place] [address] [facility] Start: 04-23-2024 End: 04-23-2024 Clinical Support 04/23/2024 2:00 PM EST Clinical Support [facility] [facility] [address] [place] [address] Patric Valdivia LPC [facility] Start: 04-15-2024 End: 04-15-2024 Patient encounter procedure [facility] Comment on above: Primary hypertension (CMS/HCC) (Primary Dx); Morbid (severe) obesity due to excess calories (CMS/HCC); Well woman exam with routine gynecological exam Start: 04-15-2024 End: 04-15-2025 THIN PREP TIS PAP AND HR HPV DNA THIN PREP TIS PAP AND HR HPV DNA Pathology and Cytology Routine Well woman exam with routine gynecological exam Expected: 04/15/2024 (Approximate), Expires: 04/15/2025 [facility] Work Phone: Comment on above: Expected: 04/15/2024 (Approximate), Expires: 04/15/2025 Start: 04-09-2024 End: 04-09-2024 [facility] Comment on above: Arrived Start: 03-20-2024 End: 03-20-2024 Clinical Support 03/20/2024 4:00 PM EST Clinical Support [facility] [address] [place] [phone] Patric Valdivia LPC [facility] Start: 03-06-2024 End: 03-06-2024 Patient encounter procedure 03/06/2024 1:00 PM EDT Office Visit [facility] [address] [place] [address] Anam June DO [address] [place] [address] Ventral hernia without obstruction or gangrene [facility] Comment on above: Ventral hernia witho ut obstruction or gangrene Start: 03-05-2024 End: 03-05-2024 Patient encounter procedure 03/05/2024 3:40 PM EDT Office Visit [facility] [address] [place] [phone] Whit Ca NP [address] [place] [phone] [facility] Start: 03-05-2024 End: 03-05-2025 Basic metabolic 1998 panel - Serum or Plasma Basic metabolic panel Lab Routine Pre-diabetes Primary hypertension (CMS/HCC) Expected: 03/05/2024 (Approximate), Expires: 03/05/2025 [facility] Work Phone: Comment on above: Expected: 03/05/2024 (Approximate), Expires: 03/05/2025 Start: 03-05-2024 End: 03-05-2025 Hemoglobin A1c/Hemoglobin.total in Blood Hemoglobin A1c Lab Routine Pre-diabetes Expected: 03/05/2024 (Approximate), Expires: 03/05/2025 [facility] Comment on above: Expected: 03/05/2024 (Approximate), Expires: 03/05/2025 Start: 03-05-2024 End: 03-05-2025 US Pelvis US Pelvis w/ TV Imaging Routine Polycystic ovaries Pelvic pain Expected: 03/05/2024 (Approximate), Expires: 03/05/2025 [facility] Comment on above: Expected: 03/05/2024 (Approximate), Expires: 03/05/2025 Start: 03-04-2024 End: 03-04-2024 Clinical Support [facility] Comment on above: Arrived Start: 02-28-2024 End: 02-28-2024 Patient encounter procedure [facility] Comment on above: Arrived Start: 01-30-2024 End: 01-30-2024 Patient encounter procedure 01/30/2024 3:20 PM EDT Office Visit [facility] [address] [place] [phone] Whit Ca, EVENT MANAGER [address] [place] [phone] [facility] Start: 01-07-2024 Influenza vaccination Influenza Vacc ine [facility] Start: 01-06-2022 Influenza vaccination INFLUENZA (#1) [facility] Start: 12-30-2021 End: 03-01-2022 25-hydroxyvitamin D3 [Mass/volume] in Serum or Plasma [facility] Work Phone: Comment on above: Expected: 12/30/2021 , Expires: 03/01/2022 Start: 12-30-2021 End: 03-01-2022 Estradiol (E2) [Mass/volume] in Serum or Plasma [facility] Work Phone: Comment on above: Expected: 12/30/2021 , Expires: 03/01/2022 Start: 12-30-2021 End: 03-01-2022 Follitropin [Units/volume] in Serum or Plasma [facility] Work Phone: Comment on above: Expected: 12/30/2021 , Expires: 03/01/2022 Start: 12-30-2021 End: 03-01-2022 Hemoglobin A1c in Blood [facility] Work Phone: Comment on above: Expected: 12/30/2021 , Expires: 03/01/2022 Start: 12-30-2021 End: 03-01-2022 Prolactin [Mass/volume] in Serum or Plasma [facility] Work Phone: Comment on above: Expected: 12/30/2021 , Expires: 03/01/2022 Start: 12-30-2021 End: 03-01-2022 RUBELLA IGG AB [facility] Work Phone: Comment on above: Expected: 12/30/2021 , Expires: 03/01/2022 Start: 12-30-2021 End: 03-01-2022 Thyrotropin [Units/volume] in Serum or Plasma [facility] Work Phone: Comment on above: Expected: 12/30/2021 , Expires: 03/01/2022 Start: 12-30-2021 End: 03-01-2022 TYPE + SCREEN [facility] Work Phone: Comment on above: Expected: 12/30/2021 , Expires: 03/01/2022 Start: 12-30-2021 End: 03-01-2022 VARICELLA ZOSTER IGG [facility] Work Phone: Comment on above: Expected: 12/30/2021 , Expires: 03/01/2022 Start: 01-30-2021 COVID-19 VACCINE (3 - Booster for Pfizer series) COVID-19 VACCINE (3 - Booster for Pfizer series) [facility] Start: 2019 HPV TESTING HPV TESTING [facility] Start: 2019 Screening for malign ant neoplasm of cervix HPV/Cotest [facility] Start: 2010 PAP TESTING PAP TESTING [facility] Start: 2010 Screening for malign ant neoplasm of cervix Pap Smear [facility] Start: 02-23-2008 DTaP,Tdap and Td Vaccines (1 - Tdap) DTaP,Tdap and Td Vaccines (1 - Tdap) [facility] Start: 02-23-2008 Urine microalbumin profile DTAP,TDAP,TD (1 - Tdap) [facility] Start: 2007 Adult BMI Screening Adult BMI Screen ing [facility] Start: 2007 HEPATITIS C SCREENING HEPATITIS C SC REENING [facility] Start: 2007 HIV SCREENING HIV SCREENING [facility] Start: 2001 Adult depression screening assessment DEPRESSION SCREENING [facility] Start: 2001 Tobacco Screening Tobacco Screening [facility] Start: 1989 HEPATITIS B (1 of 3 - 3-dose series) HEPATITIS B (1 of 3 - 3-dose series) [facility] Immunizations Immunization Date Immunization Notes Care Provider Wenceslao hall 08-30-2020 SARS-CoV-2 (COVID-19 ) mRNA BNT-162b2 vax [employer] [facility] Comment on above: Result Comment: 2021: TPVAL 08-07-2020 SARS-CoV-2 (COVID-19 ) mRNA BNT-162b2 vax [employer] [facility] Comment on above: Result Comment: 2021: TPVAL 09-21-2001 measles, mumps and rubella virus vaccine [employer] [facility] Payers Date Payer Category Payer Self-pay [id number] 2023 Blue Cross Blue Shield [facility] er [id number]. 315 2023 Blue Cross Blue [facility] - Other [facility] [id number] 2023 Unknown [id number] 2022 Unknown [id number] 2019 Unknown [id number]. 1.13.15 [id number] 1989 Unknown [id number] 2.16.840.1.875742.3.57 9.2.593 1989 Unknown [id number] 2.16.840.1.426945.3.57 9.2.593 1989 Unknown [id number] 2.16.840.1.065472.3.57 9.2.593 1989 Unknown [id number] 2.16.840.1.552316.3.57 9.2.593 1989 Unknown [id number] 2.16.840.1.387889.3.57 9.2.593 1989 Unknown [id number] 2.16.840.1.291387.3.57 9.2.593 1989 Unknown [id number] 2.16840.1.863369.3.57 9.2.593 1989 Unknown [id number] 2.16.840.1.251516.3.57 9.2.593 1989 Unknown [id number] 2.840.1.652953.3.57 9.2.593 1989 Unknown [id number] 2.840.1.219608.3.57 9.2.593 1989 Unknown [id number] 2840.1.793275.3.57 9.2.1286 1989 Unknown [id number] 2.840.1.991435.3.57 9.2.1259 1989 Unknown [id number] 2.840.1.732977.3.57 9.2.1259 1989 Unknown [id number] .840.1.129166.3.57 9.2.1259 1989 Unknown [id number] 840.1.296611.3.57 9.2.1259 1989 Unknown [id number] 2.16840.1.401363.3.57 9.2.1259 1989 Unknown [id number] 2.16840.1.089998.3.57 9.2.1259 1989 Unknown [id number] 2.16840.1.082626.3.57 9.2.1259 1989 Unknown [id number] 2.16840.1.878197.3.57 9.2.1259 1989 Unknown [id number] 2.16.840.1.528430.3.57 9.2.1259 1989 Unknown [id number] 2.16.840.1.460643.3.57 9.2.1259 1989 Unknown [id number] 2.16.840.1.179442.3.57 9.2.1259 1989 Unknown [id number] 2.16.840.1.514546.3.57 9.2.1259 1989 Unknown [id number] 2.16.840.1.165485.3.57 9.2.1259 1989 Unknown [id number] 2.16.840.1.793697.3.57 9.2.1259 1989 Unknown [id number] 2.16.840.1.203801.3.57 9.2.1259 1989 Unknown [id number] 2.16840.1.863398.3.57 9.2.1259 1989 Unknown [id number] 2.16.840.1.389047.3.57 9.2.1259 1989 Unknown [id number] 2.16.840.1.038543.3.57 9.2.1259 1989 Unknown [id number] 2.16.840.1.894386.3.57 9.2.1259 1989 Unknown [id number] 2.16840.1.280273.3.57 9.2.1259 1989 Unknown [id number] 2.16840.1.719031.3.[address] [facility] [id number] 2.16840.1.112886.19 Unknown [id number] 2.16840.1.002421.3.57 9.2.531 Social History Date Type Detail Facility Unknown if ever smoked [facility] Start: 07-25-2023 End: 12-27-2023 Sex Assigned At Satya Sanz [facility] Start: 12-30-2021 End: 01-30-2024 Tobacco smoking status NHIS Ex-smoker [facility] Start: 05-08-2005 End: 05-08-2020 History of tobacco use Current smoker [facility] Start: 05-08-2005 End: 05-08-2020 History of tobacco use Cigarette Smoker [facility] Start: 12-30-2021 Tobacco use and exposure User of smokeless tobacco [facility] Start: 12-30-2021 Tobacco Comment VAPE [facility] Start: 1989 Sex Assigned At Not on file [facility] Start: 12-20-2021 End: 12-30-2021 Exposure to SARS-CoV-2 (event) Not sure [facility] Start: 1989 Sex Assigned At Female [facility] Start: 07-25-2023 End: 01-30-2024 Cigarettes smoked current (pack per day) - Reported 1.5 [facility] Start: 07-17-2018 End: 01-30-2024 Tobacco use and exposure Smokeless tobacco non-user [facility] Start: 01-30-2024 End: 04-15-2024 Alcoholic beverage intake Ex-drinker (finding) [facility] Do you belong to any clubs or organizations such as taoism groups, unions, fraternal or athletic groups, or [...] and energy drink 2 weekly [facility] Start: 04-19-2024 Alcoholic beverage intake Current non-drinker of alcohol (finding) [facility] Start: 12-11-2014 Sex Female (finding) [facility] Goals Date Patient Goal Desired Activity /State Personal health goal Functional Status Date Assessment Result Facility 04-21-2023 Functional Status N/A [facility] 04-04-2022 Functional Status N/A [facility] Clinical Notes 08-27-2021 to 04-15-2024 Whit Ca NP - 04/15/2024 4:49 PM [facility] HUMP[facility]REYS - 04/15/2024 4:30 PM Maddison Ca NP - 04/15/2024 4:30 PM Maddison Ca NP - 04/15/2024 7:24 AM ESTPatient Instructions Note Date & Type Note Facility 04-15-2024 History of Present illness Narrative Associated Problem(s): Well woman exam with routine gynecological exam Fu as per PAP indications Discussed monthly BSE Mammograms at age 39 No currently doing anything to prevent Pt states her menses has been regular since dec. Her first day of her last menses was mar 26. Ending on the . Pt had a heavy flow last time til the last two days and it would taper off. Cramping. Pt states she is sexual active, no pain with intercourse and no protection Images from the original note were not included. Ramin Danielle is a 34 y.o. female presents with chief complaint of No chief complaint on file. HPI: Gynecologic Exam The patient's pertinent negatives include no genital itching, genital lesions, genital odor, genital rash, missed menses, pelvic pain, vaginal bleeding or vaginal discharge. The patient is experiencing no pain. She is not . Pertinent negatives include no abdominal pain, back pain, chills, constipation, diarrhea, dysuria, fever, frequency, headaches, nausea, rash, sore throat or vomiting. Nothing aggravates the symptoms. She is sexually active. No, her partner does not have an STD. She uses nothing for contraception. Her menstrual history has been regular. SUBJECTIVE: MEDICATIONS: Current Outpatient Medications Medication Instructions busPIRone (BUSPAR) 5 mg, Oral, Every 12 hours PRN labetalol (NORMODYNE) 100 mg, Oral, 2 times daily ALLERGIES: Allergies Allergen Reactions Neeses Extract Hives Other Rash Penicillin G Rash REVIEW OF SYMPTOMS: Review of Systems Constitutional: Negative for appetite change, chills and fever. HENT: Negative for congestion, ear pain and sore throat. Eyes: Negative for pain, discharge, redness and visual disturbance. Respiratory: Negative for cough, shortness of breath and wheezing. Cardiovascular: Negative for chest pain, palpitations and leg swelling. Gastrointestinal: Negative for abdominal pain, blood in stool, constipation, diarrhea, nausea and vomiting. Genitourinary: Negative for difficulty urinating, dysuria, frequency, missed menses, pelvic pain and vaginal discharge. Musculoskeletal: Negative for arthralgias, back pain, joint swelling and myalgias. Skin: Negative for rash and wound. Neurological: Negative for dizziness, tremors, seizures, syncope and headaches. Psychiatric/Behavioral: Negative for behavioral problems, self-injury and suicidal ideas. The patient is not nervous/anxious. Hematological: Does not bruise/bleed easily. Endocrine: Negative for polydipsia, polyphagia and polyuria. Allergic/Immunologic: Negative for environmental allergies and food allergies. PAST MEDICAL HISTORY Past Medical History: Diagnosis Date Calculus of gallbladder without cholecystitis without obstruction 08/10/2023 Past Surgical History: Procedure Laterality Date CHOLECYSTECTOMY 08/2023 family history includes COPD in her father; Cancer in her maternal grandmother; Drug abuse in her sister; Kidney disease in her father. OBJECTIVE: Visit Vitals Resp 20 Ht 5' 4 Wt 288 lb 3.2 oz BMI 49.47 kg/m Smoking Status Former BSA 2.43 m Physical Exam Vitals and nursing note reviewed. Exam conducted with a weight loss sales consultant present. Constitutional: General: She is not in acute distress. Appearance: Normal appearance. HENT: Head: Normocephalic and atraumatic. Right Ear: [...] normal. Breath sounds: Normal breath sounds. No wheezing, rhonchi or rales. Chest: Chest wall: No mass, swelling or tenderness. Breasts: Right: Normal. No inverted nipple, nipple discharge, skin change or tenderness. Left: Normal. No inverted nipple, nipple discharge, skin change or tenderness. Abdominal: General: Bowel sounds are normal. There is no distension. Palpations: Abdomen is soft. There is no mass. Tenderness: There is no abdominal tenderness. Hernia: There is no hernia in the left inguinal area or right inguinal area. Genitourinary: Exam position: Lithotomy position. Pubic Area: No rash or pubic lice. Kurtis stage (genital): 5. Labia: Right: No rash. Left: No rash. Urethra: No urethral pain or urethral lesion. Vagina: Normal. Cervix: Normal. No cervical motion tenderness, discharge, lesion, erythema or eversion. Uterus: Normal. Adnexa: Right adnexa normal and left adnexa normal. Rectum: Normal. Comments: Bi manual examination limited by body habitus Did have recent pelvic US Musculoskeletal: General: Normal range of motion. Cervical back: Normal range of motion and neck supple. Right lower leg: No edema. Left lower leg: No edema. Lymphadenopathy: Cervical: No cervical adenopathy. Upper Body: Right upper body: No supraclavicular, axillary or pectoral adenopathy. Left upper body: No supraclavicular, axillary or pectoral adenopathy. Lower Body: No right inguinal adenopathy. No left inguinal adenopathy. Skin: General: Skin is warm and [...] file. Problem List Items Addressed This Visit Morbid (severe) obesity due to excess calories (CMS/HCC) - Primary Discussed with patient their BMI (actual, verses recommended). We have also discussed lifestyle modifications: attempts to perform physical activity as chronic conditions allow, also to monitor dietary intake: increasing protein/fruits/veggies and lowering carb intake (unless contraindicated). Limit sodas, juices, and sugary drinks. Well woman exam with routine gynecological exam Fu as per PAP indications Discussed monthly BSE Mammograms at age 39 No currently doing anything to prevent Relevant Orders THIN PREP TIS PAP AND HR HPV DNA Associated Problem(s): Morbid (severe) obesity due to excess calories (CMS/HCC) Discussed with patient their BMI (actual, verses recommended). We have also discussed lifestyle modifications: attempts to perform physical activity as chronic conditions allow, also to monitor dietary intake: increasing protein/fruits/veggies and lowering carb intake (unless contraindicated). Limit sodas, juices, and sugary drinks. documented in this encounter [facility] 04-15-2024 Instructions Whit Ca NP - 04/15/2024 4:30 PM EST Monthly breast exam: card given PAP smear: results in 7-10 days, we will call with results Exercise 3-4 times week for 30 mimutes each Variety of fruits/veggies and lean proteins, calcium is important to for strong bones documented in this encounter [facility] 04-09-2024 History of Present illness Narrative Images from the original note were not included. GENERAL SURGERY CLINIC NOTE Chief Complaint: abdominal pain History of Present Illness: Ramin Danielle is a 34 y.o. female who presents with abdominal pain. She is recently post op from a lap cholecystectomy and has devolved pain around her belly button incision. 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 She denies symptoms of nausea, vomiting or constipation. She has no other medical history than obesity. She would like to proceed with operative intervention. Of note patient reports having a CT done at an OSH 1-2 months ago. This report/imaging has not yet been uploaded to the [employer] system. Denies AC use. Review of Systems Gastrointestinal: Positive for abdominal pain. Negative for nausea, vomiting, diarrhea and abdominal distention. All other systems reviewed and are negative. No past medical history on file. No past surgical history on file. No Known Allergies Current Outpatient Medications: busPIRone (BUSPAR) 5 mg tablet, Take 1 tablet (5 mg total) by mouth., Disp: , Rfl: labetaloL (NORMODYNE) 100 mg tablet, Take 1 tablet (100 mg total) by mouth in the morning and 1 tablet (100 mg total) before bedtime., Disp: , Rfl: ibuprofen (ADVIL,MOTRIN) 800 mg tablet, Take 1 tablet (800 mg total) by mouth in the morning and 1 tablet (800 mg total) at noon and 1 tablet (800 mg total) before bedtime., Disp: 21 tablet, Rfl: 0 Social History Socioeconomic History Marital status: Single Spouse name: Not on file Number of children: Not on file Years of education: Not on file Highest education level: Not on file Occupational History Not on file Tobacco Use Smoking status: Former Smokeless tobacco: Never Substance and Sexual Activity Alcohol use: No Drug use: No Sexual activity: Not on file Other Topics Concern Not on file Social History Narrative Not on file Social Drivers of Health Financial Resource Strain: Low Risk (07/25/2023) Received from [facility] Overall Financial Resource Strain (CARDIA) Difficulty of Paying Living Expenses: Not very hard Food Insecurity: No Food Insecurity (07/25/2023) Received from [facility] Hunger Vital Sign Worried About Running Out of Food in the Last Year: Never true Ran Out of Food in the Last Year: Never true Transportation Needs: No Transportation Needs (07/25/2023) Received from [facility] PRAPARE - Transportation Lack of Transportation (Medical): No Lack of Transportation (Non-Medical): No Physical Activity: Insufficiently Active (07/25/2023) Received from [facility] Exercise Vital Sign Days of Exercise per Week: 5 days Minutes of Exercise per Session: 20 min Stress: Stress Concern Present (07/25/2023) Received from [facility] [place] [employer] - Occupational Stress Questionnaire Feeling of Stress : To some extent Social Connections: Socially Isolated (07/25/2023) Received from [facility] Social Connection and Isolation Panel [NHANES] Frequency of Communication with Friends and Family: More than three times a week Frequency of Social Gatherings with Friends and Family: Once a week Attends Zoroastrian Services: Never Active Member of Clubs or Organizations: No Attends Club or Organization Meetings: Never Marital Status: Never Interpersonal Safety: Not on file Housing Instability: Low Risk (07/25/2023) Received from [facility] Housing Stability Vital Sign Unable to Pay for Housing in the Last Year: No Number of Places Lived in the Last Year: 1 Unstable Housing in the Last Year: No No family history on file. Physical Exam Vitals reviewed. Constitutional: Appearance: She is not ill-appearing. HENT: Head: Normocephalic and atraumatic. Mouth/Throat: Pharynx: Oropharynx is clear. Eyes: Extraocular Movements: Extraocular movements intact. Pulmonary: Effort: Pulmonary effort is normal. No respiratory distress. Abdominal: General: There is no distension. Palpations: Abdomen is soft. Tenderness: There is abdominal tenderness. There is no guarding. Hernia: A hernia is present. Comments: 5 cm periumblical incisional hernia Neurological: Mental Status: She is alert and oriented to person, place, and time. Psychiatric: Mood and Affect: Mood normal. Behavior: Behavior normal. Vital Signs: There were no vitals taken for this visit. Respiratory Source: No data recorded Admission Weight: Labs: No results found for: WBC , HGB , HCT , MCV , PLT No results found for: GLU , CALCIUM , NA , K , CO2 , CL , BUN , CREATININE No results found for: AMYLASE No results found for: LIPASE No results found for: ALT , AST , GGT , ALKPHOS , LABBILI No results found for: INR , PROTIME Imaging: Not available Assessment: Ramin Danielle is a 34 y.o.female with a 5cm symptomatic incisional hernia following a laparoscopic assisted cholecystectomy Plan: Plan for robotic assisted ventral hernia repair Informed consent obtained OSH imaging requested Solomon Bridges MD General Surgery Resident, [facility] General Surgery >>>>>>>>>>>>>>>>>>>>>>> ATTENDING NOTE <<<<<<<<<<<<<<<<<<<<<<<<<< I have seen and evaluated the patient, and have also reviewed the history above. I have repeated and performed the mckeon portions of the physical exam and concur with the resident's/advanced practice provider findings. I have reviewed all pertinent laboratory findings and imaging reports/films. We have discussed the patient's status and the appropriate treatment options/plan on the day of the encounter. I agree with the plan as noted above with any changes documented below. I reviewed the CT imaging done by the outside facility. On exam it is large. Not completely reducible. I talked about the repair this be an open versus robotic. Robotically with a lower risk of recurrence and given her body habitus was to be lower risk of infection as well. Lower postop pain. There is a risk of injuring the bowel. Risk of bleeding risk of recurrence she is understanding agreeable like to proceed The reasons for surgery, alternatives to surgery, and natural history of the disease without surgery were addressed with the patient. We discussed the potential risks and benefits of the surgery. I gave ample opportunity for the patient to ask questions which I answered to their apparent satisfaction. The patient seemed to understand and provided consent. Augustin Girard MD, FACS [facility] General Surgeons Minimally Invasive Robotic Surgery Clinical chaplain resident, [facility] Board Certified in General Surgery Board Certified in Critical Care Office: [phone] Email: [email or web address] Thank you for allowing me to participate in the care of your patient. Please feel free to contact me with any questions or concerns. documented in this encounter [facility] 03-06-2024 History of Present illness Narrative General Surgery H&P Ramin Danielle 1990 Ramin Danielle is a 34 y.o. female presents with chief complaint of ventral/ incisional Hernia. Chief complaint of a large ventral hernia. 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 Relevant Orders Basic metabolic panel Ventral [...] Pelvis w/ TV documented in this encounter [facility] 02-28-2024 History of Present illness Narrative Images from the original note [...] Amanda danielle Drug abuse Sister Reta danielle Social History Tobacco Use Smoking status: Former Current packs/day: 0.00 Average packs/day: 1.5 packs/day for 15.0 years (22.5 ttl pk-yrs) Types: Cigarettes Start date: 2005 Quit date: 2020 Years since quittin.8 Smokeless tobacco: Never Substance Use Topics Alcohol use: Not Currently Comment: caffine: coffee 2 daily and energy drink 2 weekly Allergies: Neeses extract, Other, and Penicillin g General: No [...] was counseled on the risks of stroke, [place], and sudden with FLAVIO, along with the [...] clinic: 6 months documented in this encounter [facility] 04-21-2023 Hospital Discharge instructions Patient Education 04/21/2023 10:37:14 Hematuria, Adult Hematuria, Adult Hematuria is blood in the urine. Blood may be visible in the urine, or it may be identified with a test. This condition can be caused by infections of the bladder, urethra, kidney, or prostate. Other possible causes include: Kidney stones. Cancer of the [...] Follow these instructions at home: Medicines Take vlah-gyg-wpczbxu and prescription medicines only as told by [...] to large amounts of water is recommended. Avoid caffeine, tea, and carbonated beverages. These tend to irritate the bladder. Avoid alcohol because it may irritate the prostate (in males). General instructions If you have been diagnosed [...] changes or any new symptoms. It is up to you to get the results of any tests. Ask your health care provider, or the department that is doing the test, when your results will be ready. Keep all follow-up visits. This is important. Contact a health care provider if: You develop back pain. You have a fever or chills. You have nausea or vomiting. Your symptoms do not improve after 3 days. Your symptoms get worse. Get help right away if: You develop severe vomiting and are unable to take medicine without vomiting. You develop severe [...] or the blood stops without treatment. Take ldas-bpw-bnkypnn and prescription medicines only as told by your health care provider. Drink enough fluid to keep your urine pale yellow. This information is not intended to replace advice given to you by your health care provider. Make sure you discuss any questions you have with your health care provider. Document Revised: 12/23/2020 Document Reviewed: 12/23/2020 [email or web address] Patient Education 2022 [employer]. Follow Up Care 05/23/2022 13:29:58 With:ALESSANDRO EGAN, Audi Felton, URL Address: [address] [place], [place] [id number]- When: Unknown [facility] 04-08-2022 Evaluation note Encounter Date Diagnosis [...] treatment plan. Patient left in stable condition [facility] Other 11-28-2022 Hospital Discharge instructions Patient Education [...] Follow these instructions at home: Medicines Take kfcq-ozh-yyqagnd and prescription medicines only as told by [...] or the blood stops without treatment. Take ixeh-wan-pqhrkrl and prescription medicines only as told by your health care provider. Drink enough fluid to keep your urine clear or pale yellow. This information is not intended to replace advice given to you by your health care provider. Make sure you discuss any questions you have with your health care provider. Document Released: 04/24/2006 Document Revised: 09/18/2019 Document Reviewed: 05/27/2017 [employer] Patient Education 2019 [email or web address] Follow Up Care 03/01/2022 10:00:52 With:ALESSANDRO EGAN, Audi Felton, URL Address: [facility] [address] [place] [address]- When: Unknown Comments:Schedule cysto, CTU [facility] Reji 09-13-2022 Miscellaneous Notes* Telephone Encounter - Luciana Kline - 01/18/2022 10:29 AM EDT Sissy Brown MD P i A10 Scheduling Pool New PCOS patient for clinic Call to patient, no answer. Left voicemail for patient to call the office so that we may assist with scheduling and appointmentwith Dr. Kwan for PCOS clinic. Luciana Kline [facility] NoteHNO ID: [id number] Author: Taiwo Torres MD Service: ? Author [...] which included preparing to see the patient, meij-qm-ctkm patient care, completing clinical documentation, obtaining and/or reviewing separately obtained history, counseling and educating the patient/family/caregiver, and ordering medications, tests, or procedures. Medical Decision Making: Problems: Low: Stable chronic illness Data: Unique test result(s) reviewed: 3+ Medical Decision Making Level: 3 - Low Taiwo Torres MD .[facility]09-09-2022 History of Present illness Narrative* [...] begin metformin & vit D referred to [facility] I spent a total of 20 minutes via virtual visit which included preparing to see the patient, vgwu-za-kwvn patient care, completing clinical documentation, obtaining and/or reviewing separately obtained history, counseling and educating the patient/family/caregiver, and ordering medications, tests, or procedures. Medical Decision Making: Problems: Low: Stable chronic illness Data: Unique test result(s) reviewed: 3+ Medical Decision Making Level: 3 - Low Taiwo Trores MD . documented in this [facility]08-[facility]22 NoteHNO ID: [id number] Author: Taiwo Torres MD Service: ? Author [...] which included preparing to see the patient, zxvm-lc-mpae patient care, completing clinical documentation, obtaining and/or reviewing separately obtained history, counseling and educating the patient/family/caregiver, and ordering medications, tests, or procedures. Taiwo Torres MD [facility] History of Present illness Narrative* Taiwo [...] which included preparing to see the patient, xqns-ub-gmgm patient care, completing clinical documentation, obtaining and/or reviewing separately obtained history, counseling and educating the patient/family/caregiver, and ordering medications, tests, or procedures. Taiwo Torres MD letter to Dr. Longo documented in this encounter[facility]04-22-[facility]22 Evaluation note* Encounter Date Diagnosis Assessment Notes Treatment Notes Treatment Clinical Notes Aug, Contact with and (suspected) exposure to other viral communicable diseases (ICD-10 - Z20.828) Aug, Viral URI with cough (ICD-10 - J06.9) Advised patient that Influenza A/B, rapid COVID antigen, and Strep test were negative. Discussed diagnosis with patient. Will send in rx of [place] and Flonase to use as directed. Encouraged [...] Patient care instructions given in writting by [facility] Care At Home document [facility] Other Evaluation + Plan note No data available for this section [facility] evaluation + Plan note Future Appointments Appointment Date:04/26/2024 08:45:00 AM Scheduled Provider:Audi FRANCOIS MD Location:[facility] Appointment Type:URO Office Visit [facility] evallqcrpw note* Diagnosis Primary amenorrhea- Primary Absence of menstruation [facility] Primary amenorrhea- Primary Absence of menstruation [facility] noteNo assessment information availableCommunity [facility] Work Phone: evaluation note* Diagnosis PTSD (post-traumatic stress disorder) (CMS/HCC) Posttraumatic stress disorder Major depressive disorder, single episode, moderate with anxious distress ([facility]) (CMS/HCC) Partner relationship problems documented in this encounter [facility] HealthcareEvaluation note* Diagnosis RUQ pain- Primary Abdominal [...] Unspecified essential hypertension documented in this encounter [facility] Healthcare[facility]* Diagnosis RUQ pain- Primary [...] hypertension Panic attack as reaction to stress (CMS/[facility]) Primary hypertension ([facility]/HCC)- Primary Unspecified essential hypertension Morbid (severe) obesity due to excess calories (CMS/HCC) Body mass index (BMI) 50.0-59.9, adult ([facility]) Panic attack as reaction to stress (CMS/[facility]) Primary hypertension ([facility]/HCC)- Primary Unspecified essential hypertension FLAVIO (obstructive sleep apnea) Obstructive sleep apnea (adult) (pediatric) Morbid (severe) obesity due to excess calories ([facility]/HCC) Ventral hernia without obstruction or gangrene Unspecified ventral hernia without mention of obstruction or gangrene FLAVIO (obstructive sleep apnea)- Primary Obstructive sleep apnea (adult) (pediatric) Hypersomnia Hypersomnia, unspecified Snoring Other dyspnea and respiratory abnormality documented in this encounter [facility] HealthcareEvaluation note* Diagnosis RUQ pain- Primary [...] obstruction or gangrene PTSD (post-traumatic stress disorder) (CMS/HCC) Posttraumatic stress disorder Major depressive disorder, single episode, moderate with anxious distress ([facility]) (CMS/HCC) Partner relationship problems Pre-diabetes- Primary Other abnormal glucose Primary hypertension (CMS/HCC) Unspecified essential hypertension documented [...] Morbid (severe) obesity due to excess calories ([facility]) Body mass index (BMI) 50.0-59.9, adult ([facility]) Panic attack as reaction to stress ([facility]) Primary hypertension ([facility]/HCC)- Primary Unspecified essential hypertension FLAVIO (obstructive sleep apnea) Obstructive sleep apnea (adult) (pediatric) Morbid (severe) obesity due to excess calories ([facility]) Ventral hernia without obstruction or gangrene Unspecified ventral hernia without mention of obstruction or gangrene Ventral hernia without obstruction or gangrene- Primary Unspecified ventral hernia without mention of obstruction or gangrene Pre-diabetes Other abnormal glucose Primary hypertension ([facility]/HCC) Unspecified essential hypertension Polycystic ovaries Pelvic pain Ventral hernia without obstruction or gangrene- Primary Unspecified ventral hernia without mention of obstruction or gangrene documented in this encounter [facility]* [...] Unspecified essential hypertension Polycystic ovaries Pelvic pain PTSD (post-traumatic stress disorder) ([facility]) Posttraumatic stress disorder Major depressive disorder, single episode, moderate with anxious distress ([facility]) ([facility]) Partner relationship problems Work-related stress Other occupational circumstances or maladjustment documented in this encounter [facility]* Diagnosis RUQ pain- Primary Abdominal pain, right upper quadrant Pre-diabetes Other abnormal glucose Elevated blood pressure reading Elevated blood pressure reading without diagnosis of hypertension Morbid obesity ([facility]/HCC) Morbid obesity Environmental and seasonal allergies Influenza B Influenza with other respiratory manifestations Primary hypertension ([facility]/HCC)- Primary Unspecified essential hypertension Morbid obesity (CMS/HCC) Morbid obesity FLAVIO (obstructive sleep apnea) Obstructive sleep apnea (adult) (pediatric) Primary hypertension (CMS/HCC)- Primary Unspecified essential hypertension Morbid obesity ([facility]/HCC) Morbid obesity FLAVIO (obstructive sleep apnea) Obstructive sleep apnea (adult) (pediatric) Primary hypertension (CMS/HCC)- Primary Unspecified essential hypertension Panic attack as reaction to stress (CMS/HCC) Primary hypertension ([facility]/HCC)- Primary Unspecified essential hypertension Morbid (severe) obesity due to excess calories (CMS/HCC) Body mass index (BMI) 50.0-59.9, adult ([facility]/HCC) Panic attack as reaction to stress (CMS/HCC) [...] Unspecified essential hypertension Polycystic ovaries Pelvic pain PTSD (post-traumatic stress disorder) (CMS/HCC) Posttraumatic stress disorder Major depressive disorder, single episode, moderate with anxious distress (HCC) (CMS/HCC) Work-related stress Other occupational circumstances or maladjustment documented in this encounter [facility] HealthcareEvaluation note* Diagnosis RUQ pain- Primary [...] Unspecified essential hypertension Polycystic ovaries Pelvic pain Well woman exam with routine gynecological exam- Primary Routine gynecological examination Morbid (severe) obesity due to excess calories (CMS/HCC) documented in this encounter [facility] HealthcareEvaluation note* Diagnosis Incisional hernia, without obstruction or gangrene- Primary [facility] N[facility] - Reported* Type Description Date Surgical History wisdom teeth [facility] Other InstructionsNot on filedocumented in this encounter [facility] No data available for this section [facility] Reji Summary Purpose Family History No Family History Records FoundNo Family History Records FoundNo Family History Records FoundNo Family History Records Found No data available for this section No Family History Records FoundNo Family History [...] abdomen. Specialty Diagnoses / Procedures Referred By Contac t Referred To Contact General Surgery Diagnoses Ventral hernia without obstruction or gangrene Procedures HI OFFICE/OUTPATIENT NEW HIGH MDM 60 MINUTES Whit Ca NP [address] [place] [address] Phone: tel: fax: Anam June, [address] [facility] [address] [place] [address] Phone: tel: fax: Referral ID Status Reason Start Date Expiration Date V isits Requested Visits Authorized [id number] Closed Specialty Services Required 03/05/2024 09/01/2024 1 1 Reason Comments Follow-up Depression PTSD (Post-Traumatic Stress Disorder) Reason Comments Follow-up Anxiety PTSD (Post-Traumatic Stress Disorder) Reason Comments Gynecologic Exam Reason Comments New Patient Specialty Diagnoses / Procedures Referred By Contac t Referred To Contact General Surgery Diagnoses Ventral hernia without obstruction or gangrene Procedures HI OFFICE OUTPATIENT VISIT 60-74 MINS HIGH MDM [id number] (SNOMED CT) - AMB REFERRAL TO GENERAL SURGERY Anam June, DO [address] [place] [address] Phone: tel: fax: Augustin Girard MD [address] [facility] [address] [place] [address] Phone: tel: fax: Referral ID Status Reason Start Date Expiration Date V isits Requested Visits Authorized [id number] Pending Review 03/06/2024 09/02/2024 1 1 Source Comments (unrecognize d section and content) In the event this informatio n is protected by the Federal Confidentiality of Alcohol and Drug Abuse Patient Records regulations: The Federal rules restrict any use of the information to criminally investigate or prosecute any alcohol or drug abuse patient.[facility] CenterIn the event this information is protected by the Federal Confidentiality of Alcohol and Drug Abuse Patient Records regulations: The Federal rules restrict any use of the information to criminally investigate or prosecute any alcohol or drug abuse patient.[facility] CenterIn the event this information is protected by the Federal Confidentiality of Alcohol and Drug Abuse Patient Records regulations: The Federal rules restrict any use of the information to criminally investigate or prosecute any alcohol or drug abuse patient.[facility] CenterIn the event this information is protected by the Federal Confidentiality of Alcohol and Drug Abuse Patient Records regulations: The Federal rules restrict any use of the information to criminally investigate or prosecute any alcohol or drug abuse patient.[facility] Care Teams (unrecognized sec tion and content) Child Study Team Director Relationship Specialty Start Date End Date Tiki [address], [place] [id number] Referring Obstetrics 11/16/21 Child Study Team Director Relationship Specialty [place] [address] Referring Obstetrics 11/16/21 Child Study Team Director Relationship Specialty Start [place] [address] Referring Obstetrics 11/16/21 Child Study Team Director Relationship Specialty Start [place] [address] Referring Obstetrics 11/16/21 Team Status: Active Member Role Status Dates PHYSICIAN NO FAMILY Primary Care Provider Active Team Status: Inactive Member Role Status Dates PHYSICIAN NO FAMILY Primary Care Provider Active Start: August 29, 2023 End: August 29, 2023 NON STAFF Attending Provider Active Start: 2023 End: August 29, 2023 Child Study Team Director Relationship Specialty Start Date End Date Mushtaq Lu MD [address] [place] [address] PCP - General Family Medicine 08/01/23 Whit Ca NP [address] [place] [address] Nurse Practitioner Family Medicine 08/01/23 Child Study Team Director Relationship Specialty Start Date End Date Mushtaq Lu MD [address] [place] [address] PCP - General Family Medicine 08/01/23 Whit Ca NP [address] [place] [address] Nurse Practitioner Family Medicine 08/01/23 Child Study Team Director Relationship Specialty Start Date End Date Mushtaq Lu MD [address] [place] [address] PCP - General Family Medicine 08/01/23 Whit Ca NP [address] [place] [address] Nurse Practitioner Family Medicine 08/01/23 Child Study Team Director Relationship Specialty Start Date End Date Mushtaq Lu MD [address] [place] [address] PCP - General Family Medicine 08/01/23 Whit Ca NP [address] [place] [address] Nurse Practitioner Family Medicine 08/01/23 Child Study Team Director Relationship Specialty Start Date End Date Mushtaq Lu MD [address] [place] [address] PCP - General Family Medicine 08/01/23 Whit Ca NP [address] [place] [address] Nurse Practitioner Family Medicine 08/01/23 Child Study Team Director Relationship Specialty Start Date End Date Mushtaq Lu MD [address] [place] [address] PCP - General Family Medicine 08/01/23 Whit Ca NP [address] [place] [address] Nurse Practitioner Family Medicine 08/01/23 Child Study Team Director Relationship Specialty Start Date End Date Mushtaq Lu MD [address] [place] [address] PCP - General Family Medicine 08/01/23 Whit Ca NP [address] [place] [address] Nurse Practitioner Family Medicine 08/01/23 Child Study Team Director Relationship Specialty Start Date End Date Mushtaq Lu MD [address] [place] [address] PCP - General Family Medicine 08/01/23 Whit Ca NP [address] [place] [address] Nurse Practitioner Family Medicine 08/01/23 Child Study Team Director Relationship Specialty Start Date End Date Mushtaq Lu MD [address] [place] [address] PCP - General Family Medicine 08/01/23 Whit Ca NP [address] [place] [address] Nurse Practitioner Family Medicine 08/01/23 Child Study Team Director Relationship Specialty Start Date End Date Mushtaq Lu MD [address] [place] [address] PCP - General Family Medicine 08/01/23 Whit Ca NP [address] [place] [address] Nurse Practitioner Family Medicine 08/01/23 Child Study Team Director Relationship Specialty Start Date End Date Mushtaq Lu MD [address] [place] [address] PCP - General Family Medicine 08/01/23 Whit Ca NP [address] [place] [address] Nurse Practitioner Family Medicine 08/01/23 Child Study Team Director Relationship Specialty Start Date End Date Mushtaq Lu MD [address] [place] [address] PCP - General Family Medicine 08/01/23 Whit Ca NP [address] [place] [address] Nurse Practitioner Family Medicine 08/01/23 Child Study Team Director Relationship Specialty Start Date End Date Mushtaq Lu MD [address] [place] [address] PCP - General Family Medicine 08/01/23 Whit Ca NP [address] [place] [address] Nurse Practitioner Family Medicine 08/01/23 Child Study Team Director Relationship Specialty Start Date End Date Mushtaq Lu MD [address] [place] [address] PCP - General Family Medicine 08/01/23 Whit Ca NP [address] [place] [address] PCP - [facility] 03/08/24 Whit Ca NP [address] [place] [address] Nurse Practitioner Family Medicine 08/01/23 Child Study Team Director Relationship Specialty Start Date End Date Mushtaq Lu MD [address] [place] [address] PCP - General Family Medicine 08/01/23 Whit Ca NP [address] [place] [address] PCP - [employer] 03/08/24 Whit Ca NP [address] [place] [address] Nurse Practitioner Family Medicine 08/01/23 Child Study Team Director Relationship Specialty Start Date End Date No Pcp, [place] [address] PCP - General Family Medicine 07/17/18 Child Study Team Director Relationship Specialty Start Date End Date Mushtaq Lu MD [address] [place] [address] PCP - General Family Medicine 08/01/23 Whit Ca NP [address] [place] [address] PCP - [employer] 03/08/24 Whit Ca NP [address] [place] [address] Nurse Practitioner Family Medicine 08/01/23 INFORMATION SOURCE (unrecogn ized section and content) DATE CREATED AUTHOR 02/06/[address] [facility] DATE CREATED AUTHOR AUTHOR'S ORGANIZ ATION 09/21/2022 [facility] DATE CREATED AUTHOR AUTHOR'S ORGANIZ ATION 09/01/2023 [facility] DATE CREATED AUTHOR AUTHOR'S ORGANIZ ATION 04/10/2024 [facility] DATE CREATED AUTHOR AUTHOR'S ORGANIZ ATION 04/18/2024 [facility] DATE CREATED AUTHOR AUTHOR'S ORGANIZ ATION 04/24/2024 [facility] Goals (unrecognized section and content) Goals may [...] BE BASED ON THE PRIMARY CLINICAL RECORDS. [employer] [facility]. provides no warranty or guarantee of the accuracy or completeness of information in this document.
== END 2024-04-25 15:29 | disposition home or self-care (01) ==
LOC: RAD 15:29
PROVIDERS: PCP Nurse Practitioner; Visit Provider Urology
DX: N20.0 Calculus of kidney (principal)
CPT/HCPCS: 74018

== ENCOUNTER 2024-06-17 11:29 | Outpatient (REF) | payer BC, SELFPAY | END 2024-06-17 11:30 | disposition home or self-care (01) | LOC: LAB 11:29 | PROVIDERS: PCP Nurse Practitioner; Visit Provider Obstetrics & Gynecology | DX: R87.612 Low grade squamous intraepithelial lesion on cytologic smear of cervix (LGSIL) (principal) | CPT/HCPCS: 88305 ==

== ENCOUNTER 2024-11-14 10:43 | Outpatient (OUT) | payer BC, SELFPAY ==
--- OUTSIDE RECORDS SUMMARY | 2024-11-06 12:00 | XMS_ITS | Encounter Summary ---
Author Organization [facility] Address [address] [facility] [place] [address] Care Team Providers Care Electrical Appliance Servicer Name Role Phone Mushtaq Lu MD Primary Care Provider [phone] Whit Ca NP Unavailable [phone] Patric Archer LPC Unavailable Unava ilable Reason for Visit * Reason Comments Follow-up PTSD (Post-Traumatic Stress Disorder) Depression Encounter Details Date Type Department Care Team (Latest Contact Info) Description 11/06/2024 12:00 PM EDT Clinical Support [facility] [address] [facility] [address] [place] [phone] Patric Archer LPC PTSD (post-traumatic stress disorder) ; Major depressive disorder, single episode, moderate with anxious distress (HCC); Work-related stress Social History Tobacco Use Types Packs/Day Years Used Date Smoking Tobacco: Former Cigarettes 1.5 15 2 006 - 2020 Smokeless Tobacco: Never Alcohol Use Standard Drinks/Week Comments Not Currently 0 (1 standard drink = 0.6 oz pure alcohol) caffine: coffee 2 daily and energy drink 2 weekly Social Connection and Isolat ion Panel [NHANES] Answer Date Recorded In a typical week, how many times do you talk on the phone with family, friends, or neighbors? More than three times a week 07/25/2023 How often do you get togethe r with friends or relatives? Once a week 07/25/2023 How often do you attend [facility] or judaism services? Never 07/25/2023 Do you belong to any clubs o r organizations such as protestant groups, unions, fraternal or athletic groups, or school groups? No 07/25/2023 How often do you attend meet ings of the clubs or organizations you belong to? Never 07/25/2023 Are you , , di vorced, , never , or living with a partner? Never 07/25/2023 AUDIT-C Answer Date Recorded Q1: How often do you have a drink containing alc ohol? Monthly or less 07/25/2023 Q2: How many drinks containi ng alcohol do you have on a typical day when you are drinking? 1 or 2 07/25/2023 Q3: How often do you have si x or more drinks on one occasion? Never 07/25/2023 Overall Financial Resource Strain (CARDIA) Answe r Date Recorded How hard is it for you to pa y for the very basics like food, housing, medical care, and heating? Not very hard 07/25/2023 PHQ-2 Answer Date Recorded Patient Health Questionnaire-2 Score 4 12/27/2023 [facility] - Occupational Stress Questionnaire Answer Date Recorded Do you feel stress - tense, restless, nervous, or anxious, or unable to sleep at night because your mind is troubled all the time - these days? To some extent 07/25/2023 Exercise Vital Sign Answer Date Recorde d On average, how many days pe r week do you engage in moderate to strenuous exercise (like a brisk walk)? 5 days 07/25/2023 On average, how many minutes do you engage in exercise at this level? 20 min 07/25/2023 Hunger Vital Sign Answer Date Recorded Within the past 12 months, y ou worried that your food would run out before you got the money to buy more. Never true 07/25/19 24 Within the past 12 months, t he food you bought just didn't last and you didn't have money to get more. Never true 07/25/2023 PRAPARE - Transportation Answer Date Re corded In the past 12 months, has l ack of transportation kept you from medical appointments or from getting medications? No 07/06 In the past 12 months, has l ack of transportation kept you from meetings, work, or from getting things needed for daily living? No 07/25/2023 Housing Stability Vital Sign Answer He e Recorded In the last 12 months, was t here a time when you were not able to pay the mortgage or rent on time? No 07/25/2023 In the last 12 months, how many places have you lived? 1 07/25/2023 In the last 12 months, was t here a time when you did not have a steady place to sleep or slept in a usp (including now)? No 07/25/2023 Comments Unknown Sex and Gender Information Value Date Recorded Sex Assigned at Not on file Legal Sex Female 8:00 PM EDT Gender Identity Not on file Sexual Orientation Not on file documented as of this encounter Plan of Treatment Upcoming Encounters Date Type Department Care Team (Late st Contact Info) Description 11/20/2024 4:00 PM EDT Clinical Support [facility] [address] [place] [address] Patric Archer LPC 01/01/2025 3:40 PM EDT Procedure Visit [facility] [address] [place] [address] Chuy Mcclain, DO [address] [place] [address] 01/15/2025 3:20 PM EDT Office Visit [facility] [address] [place] [phone] Whit Ca NP [address] [place] [address] documented as of this encounter Visit Diagnoses Diagnosis PTSD (post-traumatic stress disorder) Posttraumatic stress disorder Major depressive disorder, single episode, moderate with anxious distress (HCC) Work-related stress Other occupational circumstances or maladjustment documented in this encounter Additional Health Concerns Assessment Noted Time PHQ-9 Depression Total Score: 15 024 2:38 PM EDT documented as of this encounter Care Teams Electrical Appliance Servicer Relationship Specialty Start Date End Date Mushtaq Lu MD [address] [place] [address] PCP - General Family Medicine 08/01/23 Whit Ca NP [address] [place] [address] Nurse Practitioner Family Medicine 08/01/23 Patric Archer LPC Therapist Behavioral Health 05/20/24 documented as of this encounter
--- OUTSIDE RECORDS SUMMARY | 2024-11-13 15:20 | XMS_ITS | Encounter Summary ---
Author Organization [facility] Address [address] [place] [address] Care Team Providers Care Engine Wiper Name Role Phone Mushtaq Lu MD Primary Care Provider [phone] Whit Ca BOOKKEEPING ASSISTANT Unavailable [phone] Patric Archer LPC Unavailable Unava ilable Reason for Visit * Reason Comments Hypertension Encounter Details Date Type Department Care Team (Late st Contact Info) Description 11/13/2024 3:20 PM EDT Office Visit [facility] [address] [place] [phone] Whit Ca, BOOKKEEPING ASSISTANT [address] [place] [phone] Primary hypertension (Primary Dx); FLAVIO (obstructive sleep apnea); Morbid (severe) obesity due to excess calories ([facility]-HCC); Pre-diabetes; Panic attack as reaction to stress ; PTSD (post-traumatic stress disorder) ; Major depressive disorder, single episode, moderate with anxious distress ([facility]); Epistaxis; Erythema ab igne Social History Tobacco Use Types Packs/Day Years Used Date Smoking Tobacco: Former Cigarettes 1.5 15 2 - 2020 Smokeless Tobacco: Never Alcohol Use [...] week 07/25/2023 How often do you attend chur ch or religion services? Never 07/25/2023 Do you belong to any clubs o r organizations such as christianity groups, unions, fraternal or athletic groups, or [...] Recorded Patient Health Questionnaire-2 Score 4 12/27/2023 [facility] - Occupational Stress Questionnaire Answer Date Recorded [...] place to sleep or slept in a mcc (including now)? No 07/25/2023 Comments Unknown Sex and Gender Information Value Date Recorded Sex Assigned at Not on file Legal Sex Female 8:00 PM EDT Gender Identity Not on file Sexual Orientation Not on file documented as of this encounter Last Filed Vital Signs Vital Sign Reading Time Taken Comments Blood Pressure 136/84 11/13/2024 3:56 PM EDT Pulse 98 11/13/2024 3:22 PM EDT Temperature 36.9 C (98.5 F) 11/13/2024 3:22 PM EDT Respiratory Rate 18 11/13/2024 3:22 PM EDT Oxygen Saturation 98% 11/13/2024 3:22 PM EDT Inhaled Oxygen Concentration - - Weight 127 kg (279 lb 6.4 oz) 11/13/2024 3:22 PM EDT Height - - Body Mass Index 47.96 08/19/2024 4:09 PM EDT documented in this encounter Patient Instructions * Patient Instructions* Whit Ca NP - 11/13/2024 3:20 PM EDT Increase buspirone to 10mg twice daily, cont counseling and fluoxetine No change in blood pressure meds Call sleep doctor and make appt to talk about documented in this encounter Progress Notes * Whit Ca NP - 11/13/2024 4:09 PM EDTAssociated Problem(s): Erythema ab igne Likely related heated seats Avoid use of them for now Hand out given if worsening let me know Will recheck in 2 months * Whit Ca NP - 11/13/2024 4:08 PM EDTAssociated Problem(s): Epistaxis Not felt to be related to BP More likely dryness/allergy Stop nasal steroid for now, trial OTC nasal saline spray If not better let me know * Whit Ca NP - 11/13/2024 3:45 PM EDTAssociated Problem(s): Panic attack as reaction to stress Continue counseling Increase buspar to 10mg twice a day as needed for anxiety * Whit Ca NP - 11/13/2024 3:44 PM EDTAssociated Problem(s): Major depressive disorder, single episode, moderate with anxious distress (HCC) Current meds: buspar and prozac Bump up buspar * FRITZ MOORE - 11/13/2024 3:20 PM EDT Bruising on backs of legs Random nose bleeds- last couple months Pt has not used CPAP since June. * Whit Ca NP - 11/13/2024 3:20 PM EDT Images from the original note were not included. Ramin Danielle is a 34 y.o. female presents with chief complaint of Hypertension HPI: Depression/anxiety: lately more anxiety, does take prn buspar not a lot help, continues with counseling No SI/HI/hallucinations. Feels shaky, some tightness to chest and feels like cannot breath. Sleep: can be difficult Not wearing PAP, does not like it, makes her mouth dry Bloody nose: occ, does take allergy and sinus meds, no colored nasal secretions Rash back of legs, just noted a week ago, no pain, no itch, does have heated seats Hypertension This is a chronic problem. The current episode started more than 1 year ago. The problem has been waxing and waning since onset. The problem is uncontrolled. Pertinent negatives include no blurred vision, chest pain, headaches, orthopnea, palpitations, peripheral edema or shortness of breath. Thereare no associated agents to hypertension. Risk factors for coronary artery disease include obesity.Past treatments include beta blockers. The current treatment provides moderate improvement. There are no compliance problems. There is no history of CAD/[place], heart failure or PVD. SUBJECTIVE: MEDICATIONS: Current Outpatient Medications Medication Instructions busPIRone (BUSPAR) 5 mg, Oral, 2 times daily FLUoxetine (PROZAC) 40 mg, Oral, Daily ibuprofen 800 mg, Every 6 hours PRN labetalol (NORMODYNE) 100 mg, Oral, 2 times daily ALLERGIES: Allergies Allergen Reactions [place] Extract Hives Other Rash Penicillin G Rash REVIEW OF SYMPTOMS: Review of Systems Constitutional: Negative for appetite change, chills and fever. HENT: Positive for nosebleeds. Negative for congestion, ear pain and sore throat. Eyes: Negative for blurred vision, pain, discharge, redness and visual disturbance. Respiratory: Negative for cough, shortness of breath and wheezing. Cardiovascular: Negative for chest pain, palpitations, orthopnea and leg swelling. Gastrointestinal: Negative for abdominal pain, blood in stool, constipation, diarrhea, nausea and vomiting. Genitourinary: Negative for difficulty urinating, dysuria and frequency. Musculoskeletal: Negative for arthralgias, back pain, joint swelling and myalgias. Skin: Positive for rash. Negative for wound. Neurological: Negative for dizziness, tremors, seizures, syncope and headaches. Psychiatric/Behavioral: Negative for behavioral problems, self-injury and suicidal ideas. The patient is nervous/anxious. Hematological: Does not bruise/bleed easily. Endocrine: Negative for polydipsia, polyphagia and polyuria. Allergic/Immunologic: Negative for environmental allergies and food allergies. PAST MEDICAL HISTORY Past Medical History: Diagnosis Date Abnormal Pap smear of cervix Allergic Calculus of gallbladder without cholecystitis without obstruction 08/10/2023 Depression GERD (gastroesophageal reflux disease) Headache HPV (human papilloma virus) infection Hypertension Obesity Panic attack Sleep apnea Sleep difficulties Past Surgical History: Procedure Laterality Date CHOLECYSTECTOMY 08/2023 family history includes COPD in her father; Cancer in her maternal grandmother; Drug abuse in her sister; Kidney disease in her father. OBJECTIVE: Visit Vitals BP 136/84 (BP Location: Left arm, Patient Position: Sitting, BP Cuff Size: Large adult) Pulse 98 Temp 98.5 ??F (Temporal) Resp 18 Wt 279 lb 6.4 oz SpO2 98% BMI 47.96 kg/m?? Smoking Status Former BSA 2.4 m?? Physical Exam Vitals and nursing note reviewed. Constitutional: General: She is not in acute distress. Appearance: Normal appearance. She is obese. She is not ill-appearing. HENT: Head: Normocephalic and atraumatic. Right Ear: Tympanic membrane, ear canal and external ear normal. Left Ear: Tympanic membrane, ear canal and external ear normal. Nose: Rhinorrhea present. Comments: Bloody scabbed area left nares Mouth/Throat: Mouth: Mucous membranes are moist. Pharynx: No oropharyngeal exudate or posterior oropharyngeal erythema. Eyes: Extraocular Movements: Extraocular movements intact. Conjunctiva/sclera: Conjunctivae normal. Neck: Vascular: No carotid bruit. Cardiovascular: Rate and Rhythm: Normal rate and regular rhythm. Pulses: Normal pulses. Heart sounds: Normal heart sounds. No murmur heard. Pulmonary: Effort: Pulmonary effort is normal. Breath sounds: Normal breath sounds. No wheezing or rhonchi. Abdominal: General: Bowel sounds are normal. There is no distension. Palpations: Abdomen is soft. There is no mass. Tenderness: There is no abdominal tenderness. Musculoskeletal: General: Normal range of motion. Cervical back: Normal range of motion and neck supple. Right lower leg: No edema. Left lower leg: No edema. Lymphadenopathy: Cervical: No cervical adenopathy. Skin: General: Skin is warm and dry. Capillary Refill: Capillary refill takes 2 to 3 seconds. Findings: No rash (back of thighs, c/w erythea ab igne). Neurological: General: No focal deficit present. Mental Status: She is alert and oriented to person, place, and time. Psychiatric: Mood and Affect: Mood normal. Behavior: Behavior normal. Thought Content: Thought content normal. Judgment: Judgment normal. ASSESSMENT AND PLAN: No follow-ups on file. Problem List Items Addressed This Visit Pre-diabetes No current meds for this A1c: 5.5% on 03/05/24 Relevant Orders Comprehensive metabolic panel Lipid panel Microalbumin / creatinine, urine ratio Urinalysis with reflex microscopic (clean catch) Hemoglobin A1c Primary hypertension Please check blood pressure daily and record DASH diet Limit caffeine Take medication as directed Contact office if chest pain, pressure, dizziness, shortness of breath, swelling legs Recommend slow position changes Current med: labetolol Relevant Orders Comprehensive metabolic panel Microalbumin / creatinine, urine ratio Urinalysis with reflex microscopic (clean catch) FLAVIO (obstructive sleep apnea) - Primary You have a diagnosis of obstructive sleep apnea. It is recommended that you wear your PAP device any time while in bed sleeping. Not using the PAP device can increase your risk of elevated/uncontrolled high blood pressure, atrial fibrillation, heart attack, stroke, or sudden . Compliance with PAP: not Relevant Orders CBC and differential Panic attack as reaction to stress Continue counseling Increase buspar to 10mg twice a day as needed for anxiety Relevant Medications busPIRone (Buspar) 10 MG tablet Morbid (severe) obesity due to excess calories ([facility]-H[facility]) Discussed with patient their BMI (actual, verses recommended). We have also discussed lifestyle modifications: attempts to perform physical activity as chronic conditions allow, also to monitor dietary intake: increasing protein/fruits/veggies and lowering carb intake (unless contraindicated). Limit sodas, juices, and sugary drinks. Will look into GLP 1 for obesity treatment Relevant Orders Comprehensive metabolic panel Lipid panel TSH PTSD (post-traumatic stress disorder) Relevant Medications FLUoxetine (PROzac) 40 MG capsule Major depressive disorder, single episode, moderate with anxious distress (HCC) Current meds: buspar and prozac Bump up buspar Relevant Medications FLUoxetine (PROzac) 40 MG capsule Epistaxis Not felt to be related to BP More likely dryness/allergy Stop nasal steroid for now, trial OTC nasal saline spray If not better let me know Erythema ab igne Likely related heated seats Avoid use of them for now Hand out given if worsening let me know Will recheck in 2 months * Whit Ca NP - 11/13/2024 7:09 AM EDTAssociated Problem(s): Pre-diabetes No current meds for this A1c: 5.5% on 03/05/24 * Whit Ca NP - 11/13/2024 7:07 AM EDTAssociated Problem(s): Morbid (severe) obesity due to excess calories ([facility]) Discussed with patient their BMI (actual, verses recommended). We have also discussed lifestyle modifications: attempts to perform physical activity as chronic conditions allow, also to monitor dietary intake: increasing protein/fruits/veggies and lowering carb intake (unless contraindicated). Limit sodas, juices, and sugary drinks. Will look into GLP 1 for obesity treatment * Whit Ca NP - 11/13/2024 7:07 AM EDTAssociated Problem(s): Primary hypertension Please check blood pressure daily and record DASH diet Limit caffeine Take medication as directed Contact office if chest pain, pressure, dizziness, shortness of breath, swelling legs Recommend slow position changes Current med: labetolol * Whit Ca NP - 11/13/2024 7:07 AM EDTAssociated Problem(s): FLAVIO (obstructive sleep apnea) You have a diagnosis of obstructive sleep apnea. It is recommended that you wear your PAP device any time while in bed sleeping. Not using the PAP device can increase your risk of elevated/uncontrolled high blood pressure, atrial fibrillation, heart attack, stroke, or sudden . Compliance with PAP: not documented in this encounter Plan of Treatment Upcoming Encounters Date Type Department Care Team (Late st Contact Info) Description 11/20/2024 4:00 PM EDT Clinical Support [facility] [address] [place] [address] Patric Archer LPC 01/01/2025 3:40 PM EDT Procedure Visit [facility] [address] [place] [address] Chuy Mcclain, DO [address] [place] [address] 01/15/2025 3:20 PM EDT Office Visit [facility] [address] [place] [address] Whit Ca NP [address] [place] [address] Scheduled Orders Name Type Priority Associated Diagnoses Orde r Schedule CBC and differential Lab Routine FLAVIO (obstructive sleep apnea) Expected: 11/13/2024 (Approximate), Expires: 11/13/2025 Comprehensive metabolic panel Lab Routine Primary hypertension Morbid (severe) obesity due to excess calories (CMS-HCC) Pre-diabetes Expected: 11/13/2024 (Approximate), Expires: 11/13/2025 Lipid panel Lab Routine Morbid (severe) obesity due to excess calories (CMS-HCC) Pre-diabetes Expected: 11/13/2024 (Approximate), Expires: 11/13/2025 Microalbumin / creatinine, urine ratio Lab Routine Primary hypertension Pre-diabetes Expected: 11/13/2024 (Approximate), Expires: 11/13/2025 Urinalysis with reflex microscopic (clean catch) Lab Routine Primary hypertension Pre-diabetes Expected: 11/13/2024 (Approximate), Expires: 11/13/2025 Hemoglobin A1c Lab Routine Pre-diabetes Expected: 11/13/2024 (Approximate), Expires: 11/13/2025 TSH Lab Routine Morbid (severe) obesity due to excess calories ([facility]) Expected: 11/13/2024 (Approximate), Expires: 11/13/2025 documented as of this encounter Visit Diagnoses Diagnosis Primary hypertension- Primary Unspecified essential hypertension FLAVIO (obstructive sleep apnea) Obstructive sleep apnea (adult) (pediatric) Morbid (severe) obesity due to excess calories (CMS-HCC) Pre-diabetes Other abnormal glucose Panic attack as reaction to stress PTSD (post-traumatic stress disorder) Posttraumatic stress disorder Major depressive disorder, single episode, moderate with anxious distress ([facility]) Epistaxis Erythema ab igne Erythema due to burn (first degree), unspecified site documented in this encounter Additional Health Concerns Assessment Noted Time PHQ-9 Depression Total Score: 15 024 2:38 PM EDT documented as of this encounter Care Teams Engine Wiper Relationship Specialty Start Date End Date Mushtaq Lu MD [address] [place] [address] PCP - General Family Medicine 08/01/23 Whit Ca NP [address] [place] [address] Nurse Practitioner Family Medicine 08/01/23 Patric Archer LPC Therapist Behavioral Health 05/20/24 documented as of this encounter
--- OUTSIDE RECORDS SUMMARY | 2024-11-14 10:48 | XMS_ITS | Encounter Summary ---
Author Organization [facility] Address [address] [place] [address] Care Team Providers Care Dishtank Operator Name Role Phone Mushtaq Lu MD Primary Care Provider [phone] Whit Ca STARCH FACTORY LABORER Unavailable [phone] Whit Ca STARCH FACTORY LABORER Unavailable [phone] Patric Archer CLASSIFIED COPY CONTROL CLERK Unavailable Unava ilable Bette Logan CHARTER BOAT CAPTAIN Unavailable [phone] Encounter Details Date Type Department Care Team (Late st Contact Info) Description 06/25/2024 Abstract [facility] [address] [place] [address] Chuy Mcclain, DO [address] [place] [address] Social History Tobacco Use Types Packs/Day Years [...] often do you attend chur ch or sabianism services? Never 07/25/2023 Do you belong to any clubs o r organizations such as mandaeism groups, unions, fraternal or athletic groups, or [...] Recorded Patient Health Questionnaire-2 Score 4 12/27/2023 [facility] - Occupational [...] place to sleep or slept in a chcf (including now)? No 07/25/2023 Comments Unknown Sex and Gender Information Value Date Recorded Sex Assigned at Not on file Legal Sex Female 8:00 PM EDT Gender Identity Not on file Sexual Orientation Not on file documented as of this encounter Plan of Treatment Upcoming Encounters Date Type Department Care Team (Late st Contact Info) Description 11/20/2024 4:00 PM EDT Clinical Support [facility] [address] [place] [address] Patric Archer LPC 01/01/2025 3:40 PM EDT Procedure Visit [facility] [address] [place] [address] Chuy Mcclain, DO [address] [place], [place] [id number] 01/15/2025 3:20 PM EDT Office Visit [facility] [address] [place] [address] Whit Ca NP [address] [place] [address] documented as of this encounter Visit Diagnoses Not on filedocumented in this encounter Additional Health Concerns Assessment Noted Time PHQ-9 Depression Total Score: 15 024 2:38 PM EDT documented as of this encounter Care Teams Dishtank Operator Relationship Specialty Start Date End Date Mushtaq Lu MD [address] [place] [phone] PCP - General Family Medicine 08/01/23 Whit Ca NP [address] [place] [address] PCP - [facility] 03/08/24 Whit Ca NP [address] [place] [phone] Nurse Practitioner Family Medicine 08/01/23 Patric Archer LPC Therapist Behavioral Health 05/20/24 Bette Logan, STEPHANI [address] [place] [address] [facility] 08/21/24 09/06/24 documented as of this encounter
--- OUTSIDE RECORDS SUMMARY | 2024-11-14 10:48 | XMS_ITS | Encounter Summary ---
Author Organization [facility] Address [address] [place] [address] Care Team Providers Care Ripening Room Attendant Name Role Phone Mushtaq Lu MD Primary Care Provider [phone] Whit Ca VETERINARIAN ASSISTANT Unavailable [phone] Whit Ca VETERINARIAN ASSISTANT Unavailable [phone] Patric Archer BRICK SIDING APPLICATOR Unavailable Unava ilable Bette Logan RN LPN CNA Unavailable [phone] Encounter Details Date Type Department Care Team (Late st Contact Info) Description 07/19/2024 Orders Only [facility] [address] [place] [id number] Edna SanchezOrlando, [place] [address] [place] [address] Social History Tobacco Use Types Packs/Day Years [...] week 07/25/2023 How often do you attend [facility] or confucianist services? Never 07/25/2023 Do you belong to any clubs o r organizations such as voodoo groups, unions, fraternal or athletic groups, or [...] Recorded Patient Health Questionnaire-2 Score 4 12/27/2023 [facility] - Occupational Stress [...] place to sleep or slept in a fdc (including now)? No 07/25/2023 Comments Unknown Sex and Gender Information Value Date Recorded Sex Assigned at Not on file Legal Sex Female 8:00 PM EDT Gender Identity Not on file Sexual Orientation Not on file documented as of this encounter Plan of Treatment Upcoming Encounters Date Type Department Care Team (Late st Contact Info) Description 11/20/2024 4:00 PM EDT Clinical Support [facility] [address] [place] [address] Patric Archer LPC 01/01/2025 3:40 PM EDT Procedure Visit [facility] [address] [place] [phone] Chuy Mcclain, DO [address] [place] [address] 01/15/2025 3:20 PM EDT Office Visit [facility] [address] [place] [address] Whit Ca NP [address] [place] [address] documented as of this encounter Procedures Procedure Name Priority Date/Time Associated Diagnosis Comments PAP SMEAR Routine 04/15/2024 12:00 AM EST documented in this encounter Results * Pap Smear (04/15/2024 12:00 AM EST) Swab Cervical swab / Unknown us Chuy Mcclain DO LAB CYTOLOGY ORDERABLES Final Re sult EXTERNAL LAB documented in this encounter Visit Diagnoses Not on filedocumented in this encounter Additional Health Concerns Assessment Noted Time PHQ-9 Depression Total Score: 15 024 2:38 PM EDT documented as of this encounter Care Teams Ripening Room Attendant Relationship Specialty Start Date End Date Mushtaq Lu MD [address] [place] [address] PCP - General Family Medicine 08/01/23 Whit Ca NP [address] [place] [address] PCP - [facility] 03/08/24 Whit Ca NP [address] [place] [address] Nurse Practitioner Family Medicine 08/01/23 Patric Archer LPC Therapist Behavioral Health 05/20/24 Bette Logan, STEPHANI [address] [place] [address] Prn Physical Therapist Family Medicine 08/21/24 09/06/24 documented as of this encounter
--- OUTSIDE RECORDS SUMMARY | 2024-11-14 10:48 | XMS_ITS | Clinical Summary ---
Author Organization [facility] Address [facility] [place] [address] Care Team Providers Care Superintendent Board Mill Name Role Phone Imtiaz Chan Unavailable [phone] Allergies Active Allergy Reactions Criticality Noted Date Comments Strawberries Hives 12/30/2021 Medications PNV no.95/ferrous fum/folic ac ( ORAL) Take by mouth. Active letrozole (FEMARA) 2.5 mg tablet Take 2 tablets by mouth as directed for 5 days. days 3-7 10 tablet 5 01/14/2022 Active medroxyPROGESTE Ady (PROVERA) 10 mg tablet Take 1 tablet by mouth once daily. 10 tablet 01/14/2022 Active metFORMIN ER (GLUCOPHAGE XR) 750 mg 24 hr tablet Take 2 tablets by mouth daily with breakfast. 90 tablet 3 01/14/2022 Active Family History Medical History Relation Comments Hypertension Father Kidney Disease Father Kidney transpant 11/04/21 Diabetes Maternal Aunt Hypertension Mother Lung Cancer Paternal Grandmother Kidney stones Sister Relation Status Comments Father Alive Maternal Aunt Alive Mother Alive Paternal Grandmother Sister Alive Social History Tobacco Use Types Packs/Day Years Used Date Smoking Tobacco: Former Cigarettes Smokeless Tobacco: Current Tobacco Cessation:Ready to Q uit: Not Asked; Counseling Given: Not Answered Comments:[place] [employer] SSDE Area Deprivation Index Answer Date Jeramy rded National Score (1-100), lower number is lower ri sk 95 06/05/2022 State Score (1-10), lower number is lower risk N ot on file 06/05/2022 Data from: https://www.neighborhoodatlas.medicine.[employer].edu/. Last address used for calculation [address] [place] [address] [address] 06/05/2022 Comments Unknown Sex and Gender Information Value Date Recorded Sex Assigned at Not on file Legal Sex Female 3:05 PM EDT Gender Identity Not on file Sexual Orientation Not on file Last Filed Vital Signs Vital Sign Reading Time Taken Comments Blood Pressure 116/72 12/30/2021 12:56 PM EDT Pulse - - Temperature - - Respiratory Rate - - Oxygen Saturation - - Inhaled Oxygen Concentration - - Weight 136.1 kg (300 lb) 12/30/2021 12:56 PM EDT Height 162.6 cm (5' 4 ) 12/30/2021 12:56 PM EDT Body Mass Index 51.49 12/30/2021 12:56 PM EDT Plan of Treatment Health Maintenance Due Date Last Done Comments Anxiety Screening 2007 Depression Screening 2007 HIV Screening 2007 Hepatitis C Screening 2007 DTaP,Tdap,Td Vaccine (1 - Tdap) 02/23/2008 Hepatitis B Vaccine (1 of 3 - 19+ 3-dose series) 02/23/2008 Cervical Cancer Screening 2010 Covid-19 Vaccine ( season) 2024, 08/07/2020 Influenza Vaccine (#1) 2025 Insurance [address] [place] [address] [facility] PPO Care Teams Superintendent Board Mill Relationship Specialty Start Date End Date Imtiaz Chan [address] [place] [address] [place] [address] Referring Obstetrics 11/16/21
--- OUTSIDE RECORDS SUMMARY | 2024-11-14 10:48 | XMS_ITS | Encounter Summary ---
Author Organization [facility] Address [address] [place] [address] Care Team Providers Care Dye Automation Operator Name Role Phone Mushtaq Lu MD Primary Care Provider [phone] Whit Ca RN CVICU Unavailable [phone] Whit Ca NP Unavailable [phone] Patric Archer LPC Unavailable Unava ilable DesmondDamiánBette RAIL FLAW DETECTOR OPERATOR Unavailable [phone] Encounter Details Date Type Department Care Team (Late st Contact Info) Description 12/29/2023 Abstract [facility] [address] [facility] [address] [place] [address] Patric Archer, DORINDA Social History Tobacco Use Types Packs/Day Years [...] often do you attend chur ch or caodaism services? Never 07/25/2023 Do you belong to any clubs o r organizations such as baptist groups, unions, fraternal or athletic groups, or [...] Recorded Patient Health Questionnaire-2 Score 4 12/27/2023 [facility] - Occupational Stress Questionnaire Answer Date Recorded [...] place to sleep or slept in a skilled nursing (including now)? No 07/25/2023 Comments Unknown Sex [...] [address] [place] [address] Patric Archer LPC 01/01/2025 3:40 PM EDT Procedure Visit [facility] [address] [place] [address] Chuy Mcclain, DO [address] [place], [place] [phone] 01/15/2025 3:20 PM EDT Office Visit [facility] [address] [place] [address] Whit Ca, PALLAVI [address] [place] [address] documented as of this encounter Visit Diagnoses Not on filedocumented in this encounter Additional Health Concerns Assessment Noted Time PHQ-9 Depression Total Score: 15 024 2:38 PM EDT documented as of this encounter Care Teams Dye Automation Operator Relationship Specialty Start Date End Date Mushtaq Lu MD [address] [place] [phone] PCP - General Family Medicine 08/01/23 Whit Ca NP [address] [place] [address] PCP - Tawanna Chung 03/08/24 Whit Ca NP [address] [place] [address] Nurse Practitioner Family Medicine 08/01/23 Patric Archer LPC Therapist Behavioral Health 05/20/24 Bette Logan, STEPHANI [address] [place] [address] Test Design Engineer Family Medicine 08/21/24 09/06/24 documented as of this encounter
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
--- OUTSIDE RECORDS SUMMARY | 2024-11-14 10:49 | XMS_ITS | Encounter Summary ---
Author Organization [facility] Address [address] [place] [address] Care Team Providers Care Forest Fire Officer Name Role Phone Mushtaq Lu MD Primary Care Provider [phone] Whit Ca CUSTOMER ACCOUNT TECHNICIAN Unavailable [phone] Whit Ca CUSTOMER ACCOUNT TECHNICIAN Unavailable [phone] Patric Archer TANK BUILDER AND ERECTOR Unavailable Unava ilable Bette Logan ABSORPTION PLANT OPERATOR HELPER Unavailable [phone] Encounter Details Date Type Department Care Team (Late st Contact Info) Description 08/28/20[address] Abstract [facility] [address] [place] [phone] Mushtaq Lu MD [address] [place] [address] Social History Tobacco Use Types Packs/Day Years [...] often do you attend chur ch or faith services? Never 07/25/2023 Do you belong to any clubs o r organizations such as cheondoism groups, unions, fraternal or athletic groups, or [...] Answer Date Recorded Patient Health Questionnaire-2 Score 1 08/01/2023 [facility] of Occupat ional Health - Occupational Stress [...] place to sleep or slept in a jail (including now)? No 07/25/2023 Comments Unknown Sex and Gender Information Value Date Recorded Sex Assigned at Not on file Legal Sex Female 8:00 PM EDT Gender Identity Not on file Sexual Orientation Not on file documented as of this encounter Plan of Treatment Upcoming Encounters Date Type Department Care Team (Late st Contact Info) Description 11/20/2024 4:00 PM EDT Clinical Support [facility] [address] [facility] [address] [place] [address] Patric Archer LPC 01/01/2025 3:40 PM EDT Procedure Visit [facility] [address] [place] [address] Chuy Mcclain, DO [address] [place] [address] 01/15/2025 3:20 PM EDT Office Visit [facility] [address] [place] [address] Whit Ca NP [address] [place] [address] documented as of this encounter Visit Diagnoses Not on filedocumented in this encounter Care Teams Forest Fire Officer Relationship Specialty Start Date End Date Mushtaq Lu MD [address] [place] [phone] PCP - General Family Medicine 08/01/23 Whit Ca NP [address] [place] [address] PCP - [facility] 03/08/24 Whit Ca NP [address] [place] [address] Nurse Practitioner Family Medicine 08/01/23 Patric Archer LPC Therapist Behavioral Health 05/20/24 Bette Logan, STEPHANI [address] [place] [address] Retail Loss Prevention Specialist Family Medicine 08/21/24 09/06/24 documented as of this encounter
--- OUTSIDE RECORDS SUMMARY | 2024-11-14 10:49 | XMS_ITS | Encounter Summary ---
Author Organization giftees tem Address [id number] [address] [place] [address] Care Team Providers Care Blade Filer Name Role Phone Augustin Girard MD Primary Care Provider [phone] Reason for Referral * Diagnostic Imaging (Routine) - Pending Review Specialty Diagnoses / Procedures Referred By Radha nolasco Referred To Contact Radiology Diagnoses Pain Procedures CT abdomen and pelvis with contrast [facility] [address] [place] [phone] Phone: tel: fax: Referral ID Status Reason Start Date Expiration Date V isits Requested Visits Authorized [id number] Pending Review 04/11/2024 04/11/2025 1 1 Encounter Details Date Type Department Care Team (Late st Contact Info) Description 04/11/2024 Orders Only [facility] [address] [place] [phone] Transcribe, Orders Support User Pain (Primary Dx) Social History Tobacco Use Types Packs/Day Years Used Date Smoking Tobacco: Former Smokeless Tobacco: Never Alcohol Use Standard Drinks/Week Comments No 0 (1 standard drink = 0.6 oz pur e alcohol) AUDIT-C Answer Date Recorded Frequency of Alcohol Consumption Never 07/17/2018 Average Number of Drinks Not on file 019 Frequency of Binge Drinking Not on file 07/06 Childcare Answer Date Recorded Childcare Unknown 10/17/2018 Employment Answer Date Recorded Employment Unknown 10/17/2018 Purpose - Life Answer Date Recorded Purpose and direction in life Unknown Comments No Sex and Gender Information Value Date Recorded Sex Assigned at Not on file Legal Sex Female 11:41 AM EDT Gender Identity Not on file Sexual Orientation Not on file documented as of this encounter Plan of Treatment Not on file documented as of this encounter Results * CT abdomen and pelvis with contrast (02/19/2024 3:10 PM EDT) us Scanning Provider External IMG CT ORDERABLES Fin al Result MANUALLY TRANSCRIBED RESULTS documented in this encounter Visit Diagnoses Diagnosis Pain- Primary Generalized pain documented in this encounter Care Teams Blade Filer Relationship Specialty Start Date End Date Augustin Girard MD [address] [place] [address] [place], [place] [phone] PCP - General General Surgery 06/04/24 documented as of this encounter
--- OUTSIDE RECORDS SUMMARY | 2024-11-14 10:49 | XMS_ITS | Encounter Summary ---
Author Organization [facility] Address [address] [place] [address] Care Team Providers Care Signal Apprentice Name Role Phone Mushtaq Lu MD Primary Care Provider [phone] Whit Ca NP Unavailable [phone] Patric Archer LPC Unavailable Unava ilable Encounter Details Date Type Department Care Team (Late st Contact Info) Description 11/06/2024 Bamboo flowsheet [facility] [address] [facility] [address] [place] [address] Patric Archer LPC Social History Tobacco Use Types Packs/Day Years [...] often do you attend chur ch or mosque services? Never 07/25/2023 Do you belong to [...] Recorded Patient Health Questionnaire-2 Score 4 12/27/2023 [facility] ional [facility] - [...] money to buy more. Never true 07/25/19 Within the past 12 months, t he [...] place to sleep or slept in a senior care (including now)? No 07/25/2023 Comments Unknown Sex [...] [address] [place] [phone] Patric Archer LPC 01/01/2025 3:40 PM EDT Procedure Visit [facility] [address] [place] [phone] Chuy Mcclain, DO [address] [place] [address] 01/15/2025 3:20 PM EDT Office Visit [facility] [address] [place] [address] Whit Ca NP [address] [place] [address] documented as of this encounter Visit Diagnoses Not on filedocumented in this encounter Additional Health Concerns Assessment Noted Time PHQ-9 Depression Total Score: 15 024 2:38 PM EDT documented as of this encounter Care Teams Signal Apprentice Relationship Specialty Start Date End Date Mushtaq Lu MD [address] [place] [phone] PCP - General Family Medicine 08/01/23 Whit Ca NP [address] [place] [phone] Nurse Practitioner Family Medicine 08/01/23 Patric Archer LPC Therapist Behavioral Health 05/20/24 documented as of this encounter
--- OUTSIDE RECORDS SUMMARY | 2024-11-14 10:49 | XMS_ITS | Encounter Summary ---
Author Organization [facility] Address [address] [place] [address] Care Team Providers Care Quality Assurance Intern Name Role Phone Mushtaq Lu MD Primary Care Provider [phone] Whit Ca COMMERCIAL CONSTRUCTION ESTIMATOR Unavailable [phone] Patric Archer LPC Unavailable Unava ilable Encounter Details Date Type Department Care Team (Latest Contact Info) Description 11/06/2024 Travel Social History Tobacco Use Types Packs/Day Years [...] often do you attend chur ch or buddhist services? Never 07/25/2023 Do you belong to any clubs o r organizations such as episcopalian groups, unions, fraternal or athletic groups, or [...] Recorded Patient Health Questionnaire-2 Score 4 12/27/2023 [facility] - Occupational Stress Questionnaire Answer Date [...] place to sleep or slept in a alf (including now)? No 07/25/2023 Comments Unknown Sex [...] [address] [place] [address] Patric Archer LPC 01/01/2025 3:40 PM EDT Procedure Visit [facility] [address] [place] [address] Chuy Mcclain, DO [address] [place], [place] [phone] 01/15/2025 3:20 PM EDT Office Visit [facility] [address] [place] [phone] Whit Ca, PALLAVI [address] [place] [address] documented as of this encounter Visit Diagnoses Not on filedocumented in this encounter Additional Health Concerns Assessment Noted Time PHQ-9 Depression Total Score: 15 024 2:38 PM EDT documented as of this encounter Care Teams Quality Assurance Intern Relationship Specialty Start Date End Date Mushtaq Lu MD [address] [place] [phone] PCP - General Family Medicine 08/01/23 Whit Ca NP [address] [place] [address] Nurse Practitioner Family Medicine 08/01/23 Patric Archer LPC Therapist Behavioral Health 05/20/24 documented as of this encounter
--- OUTSIDE RECORDS SUMMARY | 2024-11-14 10:49 | XMS_ITS | Encounter Summary ---
Author Organization [facility] Address [address] [facility] [place] [address] Care Team Providers Care Offline Editor Name Role Phone Mushtaq Lu MD Primary Care Provider [phone] Mushtaq Lu MD Primary Care Provider [phone] Whit Ca WIRE WEAVER CLOTH Unavailable [phone] Whit Ca WIRE WEAVER CLOTH Unavailable [phone] Patric Archer STAPLE PROCESSING MACHINE OPERATOR Unavailable Unava ilable DesmondBette MINK FARMER Unavailable [phone] Encounter Details Date Type Department Care Team (Late st Contact Info) Description 04/21/2023 Orders Only [facility] [address] [place] [address] Audi Angela MD [address] [place] [address] Social History Tobacco Use Types Packs/Day Years Used Date Smoking Tobacco: Never Assessed Comments Unknown Sex and Gender Information Value Date Recorded Sex Assigned at Not on file Legal Sex Female 8:00 PM EDT Gender Identity Not on file Sexual Orientation Not on file documented as of this encounter Plan of Treatment Upcoming Encounters Date Type Department Care Team (Late st Contact Info) Description 11/20/2024 4:00 PM EDT Clinical Support [facility] [address] [facility] [address] [place] [address] ElizabetPatric Khan LPC 01/01/2025 3:40 PM EDT Procedure Visit [facility] [address] [facility] [place] [phone] Chuy Mcclain, DO [address] [facility] [place] [address] 01/15/2025 3:20 PM EDT Office Visit [facility] [address] [place] [address] Whit Ca NP [address] [place] [phone] documented as of this encounter Procedures Procedure Name Priority Date/Time Associated Diagnosis Comments XR ABDOMEN 1 VIEW Routine 04/17/2023 12:35 PM EST documented in this encounter Results * XR abdomen 1 view (04/17/2023 12:35 PM EST) Anatomical Region Laterality Modality Abdomen Radiographic Ana ging us Audi Angela MD IMG XR PROCEDURES Final Resu lt documented in this encounter Visit Diagnoses Not on filedocumented in this encounter Care Teams Offline Editor Relationship Specialty Start Date End Date Mushtaq Lu MD PCP - General Family Medicine 11/03/22 07/31/23 Mushtaq Lu MD [address] [place] [address] PCP - General Family Medicine 08/01/23 Whit Ca NP [address] [place] [address] PCP - [employer] 03/08/24 Whit Ca NP [address] [facility] [place] [address] Nurse Practitioner Family Medicine 08/01/23 Patric Archer LPC Therapist Behavioral Health 05/20/24 Bette Logan, MINK FARMER [address] [place] [address] Bingo Worker Family Medicine 08/21/24 09/06/24 documented as of this encounter
--- OUTSIDE RECORDS SUMMARY | 2024-11-14 10:49 | XMS_ITS | Encounter Summary ---
Author Organization [facility] Address [facility] [place] [address] Care Team Providers Care Oracle Application Consultant Name Role Phone Imtiaz Chan Unavailable [phone] Source Comments In the event this information is protected by the Federal Confidentiality of Alcohol and Drug AbusePatient Records regulations: The Federal rules restrict any use of the information to criminally investigate or prosecute any alcohol or drug abuse patient.[facility] Encounter Details Date Type Department Care Team (Late st Contact Info) Description 02/08/2022 Get Medical Advice Reproductive Endocrinology Infertility [address] [place], [place] [phone] [place] [address] [place] [address] Blood work Social History Tobacco Use Types Packs/Day Years Used Date Smoking Tobacco: Former Cigarettes Smokeless Tobacco: Current Comments:VAPE Comments Unknown Sex and Gender Information Value Date Recorded Sex Assigned at Not on file Legal Sex Female 3:05 PM EDT Gender Identity Not on file Sexual Orientation Not on file documented as of this encounter Plan of Treatment Not on file documented as of this encounter Visit Diagnoses Not on filedocumented in this encounter Care Teams Oracle Application Consultant Relationship Specialty Start Date End Date Imtiaz Chan [address] [place] [address] [address] [place] [id number] Referring Obstetrics 11/16/21 documented as of this encounter
--- OUTSIDE RECORDS SUMMARY | 2024-11-14 10:49 | XMS_ITS | Encounter Summary ---
Author Organization [facility] [employer] [facility] tem Address [id number] [address] [place] [address] Care Team Providers Care Offal Trimmer Name Role Phone Augustin Girard MD Primary Care Provider Encounter Details Date Type Department Care Team (Late st Contact Info) Description 04/09/2024 Orders Only [facility] [address] [place] [address] [place] [phone] External, Scanning Provider Social History Tobacco Use Types Packs/Day Years [...] on filedocumented in this encounter Care Teams Offal Trimmer Relationship Specialty Start Date End Date Augustin Girard MD [address] [place] [address] [address] [place] [address] PCP - General General Surgery 06/04/24 documented as of this encounter
--- OUTSIDE RECORDS SUMMARY | 2024-11-14 10:49 | XMS_ITS | Encounter Summary ---
Author Organization [facility] Address [address] [place] [address] Care Team Providers Care Intellectual Property Paralegal Name Role Phone Mushtaq Lu MD Primary Care Provider [phone] Whit Ca TOASTER ELEMENT REPAIRER Unavailable [phone] Whit Ca TOASTER ELEMENT REPAIRER Unavailable [phone] Patric Archer RELOCATION SERVICES SPECIALIST Unavailable Unava ilable Bette Logan CELLAR HAND Unavailable [phone] Encounter Details Date Type Department Care Team (Late st Contact Info) Description 08/24/2023 Clinisync Result Encounter [facility] External Department Unsolicited Anam June DO Social History Tobacco Use Types Packs/Day Years [...] 07/25/2023 How often do you attend chur or christian services? Never 07/25/2023 Do you belong to any clubs o r organizations such as worship groups, unions, fraternal or athletic groups, or [...] Recorded Patient Health Questionnaire-2 Score 1 08/01/2023 [facility] of Occupat ional [facility] - Occupational Stress Questionnaire Answer Date Recorded [...] [address] [place] [address] Patric Archer LPC 01/01/2025 3:40 PM EDT Procedure Visit [facility] OB [address] [place] [address] Chuy Mcclain, DO [address] [place] [address] 01/15/2025 3:20 PM EDT Office Visit [facility] [address] [place] [phone] Whit Ca NP [address] [place] [address] documented as of this encounter Procedures Procedure Name Priority Date/Time Associated Diagnosis Comments XR CHEST 2V 08/24/2023 2:28 PM EDT documented in this encounter Results * XR CHEST 2V (08/24/2023 2:28 PM EDT) Anatomical Region Laterality Modality Other 08/24/2023 2:28 PM EDT Narrative 08/24/2023 2:31 PM EDT The [address] [address] XRay Report Signed Patient: RAMIN DANIELLE MR#: [id number] : 1990 Acct:[id number] Age/Sex: 33 / F ADM Date: 08/24/23 Loc: PST Attending Dr: Anam June D.O. Ordering Physician: Anam June D.O. Date of Service: 08/24/23 Procedure(s): XR chest 2V Accession Number(s): [id number] cc: Whit Ca TOASTER ELEMENT REPAIRER; Anam June D.O. The [place] [id number] Patient Name: RAMIN DANIELLE MRN: [facility]:[id number] date: 1990 Sex: F Assigned Patient Location: [facility] Current Patient Location: [facility] Accession/Order Number: [id number] Exam Date: 08/24/2023 14:05 Report Date: 08/24/2023 14:28 At the request of: ANAM JUNE Procedure: XR chest 2V EXAM: XR chest 2V HISTORY: Preop exam COMPARISON: 11/21/2021 TECHNIQUE: Upright PA and lateral chest x-ray FINDINGS: The heart is not enlarged and the vasculature is not distended. No acute infiltrate, effusion or pneumothorax is identified. The osseous structures are grossly intact. XR/XR chest 2V IMPRESSION: No acute infiltrate or evidence of cardiac decompensation. The overall appearance of the chest is essentially unchanged. Electronically authenticated by: DIANNE LEAHY Date: 08/24/2023 14:28 Dictated By: Dianne Leahy M.D. Signed By: 08/24/23 1431 DD/ 1428 TD/TT: Power Lineman: Procedure Note Radiology, Radiologist, MD - 08/25/2023 [place] [address] XRay Report Signed Patient: RAMIN DANIELLE LMR#: [id number] : 1990Acct:[id number] Age/Sex: 33 / FADM Date: 08/24/23 Loc: PST Attending Dr: Anam June D.O. Ordering Physician: Anam June D.O. Date of Service: 08/24/23 Procedure(s): XR chest 2V Accession Number(s): [id number] cc: Whit Ca NP; Anam June D.O. [place] [id number] Patient Name: RAMIN DANIELLE MRN: [facility]:[id number] date: 1990 Sex: F Assigned Patient Location: [facility] Current Patient Location: [facility] Accession/Order Number: [id number] Exam Date: 08/24/2023 14:05 Report Date: 08/24/2023 14:28 At the request of: ANAM JUNE Procedure: XR chest 2V EXAM: XR chest 2V HISTORY: Preop exam COMPARISON: 11/21/2021 TECHNIQUE: Upright PA and lateral chest x-ray FINDINGS: The heart is not enlarged and the vasculature is not distended.No acute infiltrate, effusion or pneumothorax is identified. The osseous structures are grossly intact. XR/XR chest 2V IMPRESSION: No acute infiltrate or evidence of cardiac decompensation. The overall appearance of the chest is essentially unchanged. Electronically authenticated by: DIANNE LEAHY Date: 08/24/2023 14:28 Dictated By: Dianne Leahy M.D. Signed By:08/24/23 1431 DD/ 1428 TD/TT: Power Lineman: Anam June DO [facility] Final Result documented in this encounter Visit Diagnoses Not on filedocumented in this encounter Care Teams Intellectual Property Paralegal Relationship Specialty Start Date End Date Mushtaq Lu MD [address] [place] [address] PCP - General Family Medicine 08/01/23 Whit Ca NP [address] [place] [address] PCP - [place] [employer] 03/08/24 Whit Ca NP [address] [place] [address] Nurse Practitioner Family Medicine 08/01/23 Patric Archer LPC Therapist Behavioral Health 05/20/24 Bette Logan, STEPHANI [address] [place], [place] [phone] Placing Judge Family Medicine 08/21/24 09/06/24 documented as of this encounter
--- OUTSIDE RECORDS SUMMARY | 2024-11-14 10:49 | XMS_ITS | Encounter Summary ---
Author Organization [facility] Address [address] [place] [address] Care Team Providers Care Helicopter Pilot Name Role Phone Mushtaq Lu MD Primary Care Provider [phone] Whit Ca BACTERIOLOGY TEACHER Unavailable [phone] Whit Ca BACTERIOLOGY TEACHER Unavailable [phone] Patric Archer TEAM ASSISTANT Unavailable Unava ilable Bette Logan FURNITURE DETAILER Unavailable [phone] Encounter Details Date Type Department Care Team (Late st Contact Info) Description 09/20/2023 Orders Only [facility] [address] [place] [address] Whit Ca, BACTERIOLOGY TEACHER [address] [facility] [place] [address] Social History Tobacco Use Types [...] often do you attend chur ch or anglican services? Never 07/25/2023 Do you belong to [...] Answer Date Recorded Patient Health Questionnaire-2 Score 0 09/07/2023 [facility] Occupat ional Health - Occupational [...] medical appointments or from getting medications? No 03/1 01/2024 In the past 12 months, has l [...] place to sleep or slept in a fpc (including now)? No 07/25/2023 Comments Unknown Sex and Gender Information Value Date Recorded Sex Assigned at Not on file Legal Sex Female 8:00 PM EDT Gender Identity Not on file Sexual Orientation Not on file documented as of this encounter Plan of Treatment Upcoming Encounters Date Type Department Care Team (Late st Contact Info) Description 11/20/2024 4:00 PM EDT Clinical Support [facility] [address] [place] [address] Patric Archer LPC 01/01/2025 3:40 PM EDT Procedure Visit [facility] OB [address] [place] [address] Chuy Mcclain, DO [address] [place], [place] [phone] 01/15/2025 3:20 PM EDT Office Visit [facility] [address] [place] [address] Whit Ca NP [address] [place] [address] documented as of this encounter Procedures Procedure Name Priority Date/Time Associated Diagnosis Comments POLYSOMNOGRAPHY (PSG) SLEEP STUDY Routine 09/19/2023 1:58 PM EDT documented in this encounter Results * POLYSOMNOGRAPHY (PSG) SLEEP STUDY (09/19/2023 1:58 PM EDT) Anatomical Region Laterality Modality Radiographic Ana ging Whit Ca BACTERIOLOGY TEACHER IMG XR PROCEDURES Final Result documented in this encounter Visit Diagnoses Not on filedocumented in this encounter Care Teams Helicopter Pilot Relationship Specialty Start Date End Date Mushtaq Lu MD [address] [place] [address] PCP - General Family Medicine 08/01/23 Whit Ca NP [address] [place] [address] PCP - [facility] 03/08/24 Whit Ca NP [address] [place] [address] Nurse Practitioner Family Medicine 08/01/23 Patric Archer LPC Therapist Behavioral Health 05/20/24 Bette Logan, STEPHANI [address] [place], [place] [phone] Sustainable Agriculture Faculty Family Medicine 08/21/24 09/06/24 documented as of this encounter
--- OUTSIDE RECORDS SUMMARY | 2024-11-14 10:49 | XMS_ITS | Clinical Summary ---
Author Organization [facility] Address [id number] [address] [place] [address] Care Team Providers Care Fiberglass Luggage Molder Name Role Phone Augustin Girard MD Primary Care Provider Allergies Active Allergy Reactions Criticality Noted Date Comments Penicillin G Rash Low 07/12/2023 [place] Hives 12/30/2021 Medications busPIRone (BUSPAR) 5 mg tablet Take 1 tablet (5 mg total) by mouth in the morning. 11/14/2023 Active FLUoxetine (PROzac) 10 mg capsule Take 1 capsule (10 mg total) by mouth nightly. 05/09/2024 Active labetaloL (NORMODYNE) 100 mg tablet Take 1 tablet (100 mg total) by mouth in the morning and 1 tablet (100 mg total) before bedtime. Active acetaminophen (TYLENOL EXTRA STRENGTH) 500 mg tablet Take 2 tablets (1,000 mg total) by mouth every 6 (six) hours as needed for pain. 30 tablet 05/31/2024 Active ibuprofen (MOTRIN) 800 mg tablet Take 1 tablet (800 mg total) by mouth every 6 (six) hours as needed for pain. 30 tablet 05/31/2024 Active Active Problems Problem Noted Date Diagnosed Date Incisional hernia, without obstruction or gangre ne 04/09/2024 Social History Tobacco Use Types Packs/Day Years Used Date Smoking Tobacco: Former Cigarettes 0.5 15 S tarted: 2004 Smokeless Tobacco: Never Tobacco Cessation:Counseling Given: Not Answered Alcohol Use Standard Drinks/Week Comments No 0 (1 standard drink = 0.6 oz pur e alcohol) AUDIT-C Answer Date Recorded Frequency of Alcohol Consumption Never 07/17/2018 Average Number of Drinks Not on file 019 Frequency of Binge Drinking Not on file 07/06 Childcare Answer Date Recorded Childcare Unknown 10/17/2018 Employment Answer Date Recorded Employment Unknown 10/17/2018 Hunger Screening Answer Date Recorded Within the past 12 months we worried whether our food would run out before we got money to buy more. Never True 05/20/2024 Within the past 12 months th e food we bought just didn't last and we didn't have money to get more. Never True 05/20/2024 Purpose - Life Answer Date Recorded Purpose and direction in life Unknown Comments No Sex and Gender Information Value Date Recorded Sex Assigned at Not on file Legal Sex Female 11:41 AM EDT Gender Identity Not on file Sexual Orientation Not on file Last Filed Vital Signs Vital Sign Reading Time Taken Comments Blood Pressure 111/46 05/31/2024 11:55 AM EST Pulse 76 05/31/2024 12:05 PM EST Temperature 36.3 C (97.3 F) 05/31/2024 12:05 PM EST Respiratory Rate 18 05/31/2024 12:0 5 PM EST Oxygen Saturation 97% 05/31/2024 12: 05 PM EST Inhaled Oxygen Concentration - - Weight 128.8 kg (283 lb 15.2 oz) 05/31/2024 5:41 AM EST Height 162.6 cm (5' 4.02 ) 05/31/2024 5:41 AM ES T Body Mass Index 48.72 05/31/2024 5:41 AM EST Plan of Treatment Health Maintenance Due Date Last Done Comments Depression Screening 2001 Adult BMI Follow Up Plan 2007 DTaP,Tdap and Td Vaccines (1 - Tdap) 02/23/2008 Pap Smear 2010 COVID-19 Vaccine ( season) 2024, 08/07/2020 Influenza Vaccine 01/06/2025 Adult BMI Screening 05/31/2025 05/31/2024 Tobacco Screening 05/31/2025 05/31/2024 Medical Devices Implanted Type Area Special Needs Tutor Device Identifier Shelf Expiration Date Model / Serial / Lot Mesh [id number] Pp Macroporous Parietene Mfl Srg Strl Lf Disp Rpl [id number] - [id number] Implanted:Qty: 1 on 05/31/2024 by Augustin Girard MD at [facility] Mesh Left: Abdomen [employer] [place] 12/05/2028 [id number] / / [id number] Insurance [facility] Care Teams Fiberglass Luggage Molder Relationship Specialty Start Date End Date Augustin Girard MD [address] [place] [address] [address] [place] [address] PCP - General General Surgery 06/04/24
--- OUTSIDE RECORDS SUMMARY | 2024-11-14 10:49 | XMS_ITS | Encounter Summary ---
Author Organization [facility] Address [address] [place] [address] Care Team Providers Care Shoulder Joiner Name Role Phone Mushtaq Lu MD Primary Care Provider [phone] Whit Ca WET SANDER Unavailable [phone] Patric Archer LPC Unavailable Unava ilable Encounter Details Date Type Department Care Team (Late st Contact Info) Description 11/13/2024 Bamboo flowsheet [facility] [address] [place] [address] Whit Ca, PALLAVI [address] [place] [address] Social History Tobacco Use Types Packs/Day Years [...] week 07/25/2023 [facility] often [facility] you [facility] or yarsanism services? Never 07/25/2023 Do you belong to any clubs o r organizations such as druze groups, unions, fraternal or athletic groups, or [...] Recorded Patient Health Questionnaire-2 Score 4 12/27/2023 [facility] - [...] place to sleep or slept in a longterm (including now)? No 07/25/2023 Comments Unknown Sex [...] [address] [place] [address] Patric Archer LPC 01/01/2025 3:40 PM EDT Procedure Visit [facility] [address] [place] [address] Chuy Mcclain, DO [address] [place] [address] 01/15/2025 3:20 PM EDT Office Visit [facility] [address] [place] [address] Whit Ca NP [address] [place] [address] documented as of this encounter Visit Diagnoses Not on filedocumented in this encounter Additional Health Concerns Assessment Noted Time PHQ-9 Depression Total Score: 15 024 2:38 PM EDT documented as of this encounter Care Teams Shoulder Joiner Relationship Specialty Start Date End Date Mushtaq Lu MD [address] [place] [address] PCP - General Family Medicine 08/01/23 Whit Ca NP [address] [place] [address] Nurse Practitioner Family Medicine 08/01/23 Patric Archer LPC Therapist Behavioral Health 05/20/24 documented as of this encounter
--- OUTSIDE RECORDS SUMMARY | 2024-11-14 10:49 | XMS_ITS | Encounter Summary ---
Author Organization [facility] Address [address] [place] [address] Care Team Providers Care Pictures Editor Name Role Phone Mushtaq Lu MD Primary Care Provider [phone] Whit Ca DAM TENDER ASSISTANT Unavailable [phone] Patric Archer LPC Unavailable Unava ilable Reason for Visit * Reason Comments Med Refill Encounter Details Date Type Department Care Team (Late st Contact Info) Description 11/05/2024 Refill [facility] [address] [place] [address] Whit Ca, DAM TENDER ASSISTANT [address] [place] [address] PTSD (post-traumatic stress disorder) ; Major depressive disorder, single episode, moderate with anxious distress (HCC) Social History Tobacco Use Types Packs/Day Years [...] week 07/25/2023 How often do you attend [facility] or christianity services? Never 07/25/2023 Do you belong to any clubs o r organizations such as scientology groups, unions, fraternal or athletic groups, or [...] Recorded Patient Health Questionnaire-2 Score 4 12/27/2023 [facility] - [...] place to sleep or slept in a custodial (including now)? No 07/25/2023 Comments Unknown Sex and Gender Information Value Date Recorded Sex Assigned at Not on file Legal Sex Female 8:00 PM EDT Gender Identity Not on file Sexual Orientation Not on file documented as of this encounter Plan of Treatment Upcoming Encounters Date Type Department Care Team (Late st Contact Info) Description 11/20/2024 4:00 PM EDT Clinical Support [facility] [address] [facility] [address] [place] [address] Patric Archer LPC 01/01/2025 3:40 PM EDT Procedure Visit [facility] OB [address] [place] [address] Chuy Mcclain, DO [address] [place], [place] [address] 01/15/2025 3:20 PM EDT Office Visit [facility] [address] [place] [address] Whit Ca NP [address] [place] [address] documented as of this encounter Visit Diagnoses Diagnosis PTSD (post-traumatic stress disorder) Posttraumatic stress disorder Major depressive disorder, single episode, moderate with anxious distress (HCC) documented in this encounter Additional Health Concerns Assessment Noted Time PHQ-9 Depression Total Score: 15 024 2:38 PM EDT documented as of this encounter Care Teams Pictures Editor Relationship Specialty Start Date End Date Mushtaq Lu MD [address] [place] [address] PCP - General Family Medicine 08/01/23 Whit Ca NP [address] [place] [address] Nurse Practitioner Family Medicine 08/01/23 Patric Archer LPC Therapist Behavioral Health 05/20/24 documented as of this encounter
--- OUTSIDE RECORDS SUMMARY | 2024-11-14 10:49 | XMS_ITS | Encounter Summary ---
Author Organization [facility] Address [address] [place] [address] Care Team Providers Care Theatrical Scenic Designer Name Role Phone Mushtaq Lu MD Primary Care Provider [phone] Whit Ca BILLING SPECIALIST Unavailable [phone] Whit Ca BILLING SPECIALIST Unavailable [phone] Patric Archer ORDER ADMINISTRATOR Unavailable Unava ilable Bette Logan GLOBAL MARKETING SPECIALIST Unavailable [phone] Encounter Details Date Type Department Care Team (Late st Contact Info) Description 08/24/2023 Orders Only [facility] [address] [place] [address] Bright June DO Social History Tobacco Use Types [...] How often do you attend [facility] or baptism services? Never 07/25/2023 Do you belong to any clubs o r organizations such as zoroastrianism groups, unions, fraternal or athletic groups, or [...] Recorded Patient Health Questionnaire-2 Score 1 08/01/2023 [facility] Occupat ional [facility] - Occupational Stress Questionnaire Answer Date [...] place to sleep or slept in a snf (including now)? No 07/25/2023 Comments Unknown Sex and Gender Information Value Date Recorded Sex Assigned at Not on file Legal Sex Female 8:00 PM EDT Gender Identity Not on file Sexual Orientation Not on file documented as of this encounter Plan of Treatment Upcoming Encounters Date Type Department Care Team (Late st Contact Info) Description 11/20/2024 4:00 PM EDT Clinical Support [facility] [address] [place] [address] Patric Archer LPC 01/01/2025 3:40 PM EDT Procedure Visit [facility] OB [address] [place] [address] Chuy Mcclain, DO [address] [place], [place] [address] 01/15/2025 3:20 PM EDT Office Visit [facility] [address] [place] [address] Whit Ca NP [address] [place] [address] documented as of this encounter Procedures Procedure Name Priority Date/Time Associated Diagnosis Comments XR CHEST 2 VIEWS Routine 08/24/2023 6:02 PM EDT documented in this encounter Results * XR chest 2 views (08/24/2023 6:02 PM EDT) Anatomical Region Laterality Modality Chest Radiographic Ana ging Bright June DO IMG XR PROCEDURES Final Result documented in this encounter Visit Diagnoses Not on filedocumented in this encounter Care Teams Theatrical Scenic Designer Relationship Specialty Start Date End Date Mushtaq Lu MD [address] [place] [address] PCP - General Family Medicine 08/01/23 Whit Ca NP [address] [place] [address] PCP - [facility] 03/08/24 Whit Ca NP [address] [place] [address] Nurse Practitioner Family Medicine 08/01/23 Patric Archer LPC Therapist Behavioral Health 05/20/24 Bette Logan, STEPHANI [address] [facility] [facility] [place] [address] Charter Representative Family Medicine 08/21/24 09/06/24 documented as of this encounter
--- OUTSIDE RECORDS SUMMARY | 2024-11-14 10:49 | XMS_ITS | Encounter Summary ---
Author Organization [facility] Address [address] [place] [address] Care Team Providers Care Pattern Shop Supervisor Name Role Phone Mushtaq Lu MD Primary Care Provider [phone] Mushtaq Lu MD Primary Care Provider [phone] Whit Ca SELF SEALING FUEL TANK REPAIRER Unavailable [phone] Whit Ca SELF SEALING FUEL TANK REPAIRER Unavailable [phone] Patric Archer FEATHERER Unavailable Unava ilable Bette Logan CLOTHER IN Unavailable [phone] Encounter Details Date Type Department Care Team (Late st Contact Info) Description 04/17/2023 Clinisync Result Encounter [facility] External Department Unsolicited Provider, Generic External Data Social History Tobacco Use Types Packs/Day Years [...] Clinical Support [facility] [address] [facility] [address] [place] [address] Patric Archer, FEATHERER 01/01/2025 3:40 PM EDT Procedure Visit [facility] [address] [place] [address] Chuy Mcclain, DO [address] [place] [address] 01/15/2025 3:20 PM EDT Office Visit [facility] [address] [place] [address] Whit Ca NP [address] [place] [address] documented as of this encounter Procedures Procedure Name Priority Date/Time Associated Diagnosis Comments XR ABDOMEN 1V 04/17/2023 9:37 AM EST documented in this encounter Results * XR ABDOMEN 1V (04/17/2023 9:37 AM EST) Anatomical Region Laterality Modality Other 04/17/2023 9:37 AM EST Narrative 04/17/2023 9:39 AM EST [place] [id number] XRay Report Signed Patient: RAMIN DANIELLE MR#: [id number] : 1990 Acct:[id number] Age/Sex: 33 / F ADM Date: 04/17/23 Loc: RAD Attending Dr: Audi Angela M.D. Ordering Physician: Audi Angela M.D. Date of Service: 04/17/23 Procedure(s): XR abdomen 1V Accession Number(s): [id number] cc: Whit Ca SELF SEALING FUEL TANK REPAIRER; Audi Angela M.D. The [address] [address] Patient Name: RAMIN DANIELLE MRN: [id number] date: 1990 Sex: F Assigned Patient Location: RAD Current Patient Location: RAD Accession/Order Number: [id number] Exam Date: 04/17/2023 07:54 Report Date: 04/17/2023 09:37 At the request of: AUDI ANGELA Procedure: XR abdomen 1V EXAM: XR abdomen 1V. HISTORY: Kidney Stone. COMPARISON: CT abdomen and CT pelvis studies dated 04/15/2022. TECHNIQUE: AP supine view of the abdomen was obtained. FINDINGS: No obvious opaque renal, ureteral or bladder calculus. Bowel gas pattern is grossly nonspecific. Bony structures appear grossly intact. XR/XR abdomen 1V IMPRESSION: No obvious opaque calculus. Previously noted small 2 mm calculus in the right kidney not convincingly demonstrated which is nonspecific, possibly a noncalcified calculus. Electronically authenticated by: JENNIFFER MELVIN Date: 04/17/2023 09:37 Dictated By: Jenniffer Melvin M.D. Signed By: 04/17/23938 DD/ 6 TD/TT: Accountant Property: Procedure Note Radiology, Radiologist, - 04/18/2023 [place] [address] XRay Report Signed Patient: RAMIN DANIELLE R#: [id number] : 1990Acct:[id number] Age/Sex: 33 / FADM Date: 04/17/23 Loc: RAD Attending Dr: Audi Angela M.D. Ordering Physician: Audi Angela M.D. Date of Service: 04/17/23 Procedure(s): XR abdomen 1V Accession Number(s): [id number] cc: Whit Ca SELF SEALING FUEL TANK REPAIRER; Audi Angela M.D. The [place] [id number] Patient Name: RAMIN DANIELLE MRN: [id number] date: 1990 Sex: F Assigned Patient Location: [facility] Current Patient Location: RAD Accession/Order Number: [id number] Exam Date: 04/17/2023 07:54 Report Date: 04/17/2023 09:37 At the request of: AUDI ANGELA Procedure: XR abdomen 1V EXAM: XR abdomen 1V. HISTORY: Kidney Stone. COMPARISON: CT abdomen and CT pelvis studies dated 04/15/2022. TECHNIQUE: AP supine view of the abdomen was obtained. FINDINGS: No obvious opaque renal, ureteral or bladder calculus. Bowel gas pattern is grossly nonspecific. Bony structures appear grossly intact. XR/XR abdomen 1V IMPRESSION: No obvious opaque calculus. Previously noted small 2 mm calculus in theright kidney not convincingly demonstrated which is nonspecific, possibly a noncalcified calculus. Electronically authenticated by: JENNIFFER MELVIN Date: 04/17/2023 09:37 Dictated By: Jenniffer Melvin M.D. Signed By:04/17/23938 DD/ 6 TD/TT: Accountant Property: us Generic External Data Provider [facility] Final Result documented in this encounter Visit Diagnoses Not on filedocumented in this encounter Care Teams Pattern Shop Supervisor Relationship Specialty Start Date End Date Mushtaq Lu MD PCP - General Family Medicine 11/03/22 07/31/23 Mushtaq Lu MD [address] [place] [address] PCP - General Family Medicine 08/01/23 Whit Ca NP [address] [place] [address] PCP - [facility] 03/08/24 Whit Ca NP [address] [place] [address] Nurse Practitioner Family Medicine 08/01/23 Patric Archer LPC Therapist Behavioral Health 05/20/24 Bette Logan, STEPHANI [address] [place] [address] Housing Case Manager Family Medicine 08/21/24 09/06/24 documented as of this encounter
--- OUTSIDE RECORDS SUMMARY | 2024-11-14 10:49 | XMS_ITS | Encounter Summary ---
Author Organization [facility] Address [address] [place] [address] Care Team Providers Care Service Secretary Name Role Phone Mushtaq Lu MD Primary Care Provider [phone] Whit Ca TOOL PUSHER Unavailable [phone] Whit Ca NP Unavailable [phone] Patric Archer INVOICE CHECKER Unavailable Unava ilable Bette Logan DIRECTOR SAFETY COUNCIL Unavailable [phone] Encounter Details Date Type Department Care Team (Late st Contact Info) Description 08/08/2023 Clinisync Result Encounter [facility] External Department Unsolicited Whit Ca, TOOL PUSHER [address] [place] [address] Social History Tobacco Use Types Packs/Day Years Used Date Smoking Tobacco: Former Cigarettes Q uit: 2020 Smokeless Tobacco: Never Alcohol Use Standard Drinks/Week Comments Never 0 (1 standard drink = 0.6 oz [...] week 07/25/2023 How often do you attend [facility] or confucianist services? Never 07/25/2023 Do you belong to any clubs o r organizations such as amish groups, unions, fraternal or athletic groups, or [...] Recorded Patient Health Questionnaire-2 Score 1 08/01/2023 [facility] of Occupat ional Health - Occupational [...] place to sleep or slept in a group home (including now)? No 07/25/2023 Comments Unknown Sex and Gender Information Value Date Recorded Sex Assigned at Not on file Legal Sex Female 8:00 PM EDT Gender Identity Not on file Sexual Orientation Not on file documented as of this encounter Plan of Treatment Upcoming Encounters Date Type Department Care Team (Late st Contact Info) Description 11/20/2024 4:00 PM EDT Clinical Support [facility] [address] [place] [address] Patric Archer LPC 01/01/2025 3:40 PM EDT Procedure Visit [facility] OB [address] [place] [address] Chuy Mcclain, DO [address] [place], [place] [address] 01/15/2025 3:20 PM EDT Office Visit [facility] [address] [place] [address] Whit Ca NP [address] [place] [address] documented as of this encounter Procedures Procedure Name Priority Date/Time Associated Diagnosis Comments US RIGHT UPPER QUADRANT 08/08/2023 3:13 PM EDT ALL CBC WITH AUTO DIFF Routine 08/08/2023 8:44 AM EDT documented in this encounter Results * US RIGHT UPPER QUADRANT (08/08/2023 3:13 PM EDT) Anatomical Region Laterality Modality Other 08/08/2023 3:13 PM EDT Narrative 08/08/2023 3:16 [place] [address] Ultrasound Report Signed Patient: RAMIN DANIELLE MR#: [id number] : 1990 Acct:[id number] Age/Sex: 33 / F ADM Date: 08/08/23 Loc: US Attending Dr: Whit Ca NP Ordering Physician: Whit Ca NP Date of Service: 08/08/23 Procedure(s): US right upper quadrant Accession Number(s): [id number] cc: Whit Ca NP [place] [address] Patient Name: RAMIN DANIELLE MRN: [id number] date: 1990 Sex: F Assigned Patient Location: US Current Patient Location: US Accession/Order Number: [id number] Exam Date: 08/08/2023 08:10 Report Date: 08/08/2023 15:13 At the request of: WHIT CA Procedure: US right upper quadrant EXAMINATION: US right upper quadrant HISTORY: Right upper quadrant pain R10.11 COMPARISON: CT abdomen pelvis 04/15/2022 TECHNIQUE: Transabdominal evaluation of the right upper quadrant. FINDINGS: LIVER: Fatty infiltration. Color Doppler demonstrates patent hepatic veins. PORTAL VEIN: Duplex Doppler demonstrates normal hepatopetal flow pattern with flow velocity averaging 27 cm/s. GALLBLADDER: Gallbladder is filled with stones. No abnormal gallbladder wall thickening or free fluid. Negative sonographic Maldonado's sign. BILIARY: No abnormal dilation or stones. Common bile duct diameter is within normal limits. PANCREASE: No visible mass, abnormal atrophy, or duct dilation. KIDNEY: No hydronephrosis. No visible mass or stones. Size: 9.8 x 5.4 x 5.4 cm. US/US right upper quadrant IMPRESSION: 1. Cholelithiasis. No acute findings to account for patient's symptoms. Electronically authenticated by: ISMAEL IQBAL Date: 08/08/2023 15:13 Dictated By: Ismael Iqbal M.D. Signed By: 08/08/23 1516 DD/ 1513 TD/TT: [employer] Volleyball Coach: Procedure Note Radiology, Radiologist, - 08/08/2023 [place] [address] Ultrasound Report Signed Patient: RAMIN DANIELLE LMR#: [id number] : 1990Acct:[id number] Age/Sex: 33 / FADM Date: 08/08/23 Loc: US Attending Dr: Whit Ca NP Ordering Physician: Whit Ca NP Date of Service: 08/08/23 Procedure(s): US right upper quadrant Accession Number(s): [id number] cc: Whit Ca NP The [place] [address] Patient Name: RAMIN DANIELLE MRN: [id number] date: 1990 Sex: F Assigned Patient Location: US Current Patient Location: US Accession/Order Number: [id number] Exam Date: 08/08/2023 08:10 Report Date: 08/08/2023 15:13 At the request of: WHIT CA Procedure: US right upper quadrant EXAMINATION: US right upper quadrant HISTORY: Right upper quadrant pain R10.11 COMPARISON: CT abdomen pelvis 04/15/2022 TECHNIQUE: Transabdominal evaluation of the right upper quadrant. FINDINGS: LIVER: Fatty infiltration. Color Doppler demonstrates patent hepaticveins. PORTAL VEIN: Duplex Doppler demonstrates normal hepatopetal flow patternwith flow velocity averaging 27 cm/s. GALLBLADDER: Gallbladder is filled with stones. No abnormal gallbladderwall thickening or free fluid. Negative sonographic Maldonado's sign. BILIARY: No abnormal dilation or stones. Common bile duct diameter iswithin normal limits. PANCREASE: No visible mass, abnormal atrophy, or duct dilation. KIDNEY: No hydronephrosis. No visible mass or stones. Size: 9.8 x 5.4 x5.4 cm. US/US right upper quadrant IMPRESSION: 1. Cholelithiasis. No acute findings to account for patient's symptoms. Electronically authenticated by: ISMAEL IQBAL Date: 08/08/2023 15:13 Dictated By: Ismael Iqbal M.D. Signed By:08/08/23 1516 DD/ 12 TD/TT: [employer] Volleyball Coach: us Whit Ca TOOL PUSHER [facility] Final Result * (ABNORMAL) ALL CBC WITH AUTO DIFF (08/08/2023 8:44 AM EDT) TBH WBC 10.1 4.0 - 11.0 10 3/uL TBH TBH RBC 4.88 4.20 - 5.40 10 6/uL TBH TBH HGB 12.7 12.0 - 16.0 g/dL TBH TBH HCT 40.6 36.0 - 48.0 % TBH TBH MCV 83.2 81.0 - 99.0 fL TBH TBH MCH 26.0(L) 26.7 - 34.0 pg TBH TBH MCHC 31.3 29.9 - 35.2 g/dL TBH TBH RDW 14.5 11.0 - 15.0 % TBH TBH PLT 350 150 - 450 10 3/uL TBH TBH MPV 10.4 9.5 - 13.5 fL TBH NEUTROPHILS PERCENT AUTO 65.4 43.0 - 75.0 % TBH LYMPHOCYTES PERCENT AUTO 25.6 20.5 - 60.0 % TBH MONOCYTES PERCENT AUTO 5.9 1.7 - 12.0 % TBH TBH EO % 2.2 0.9 - 7.0 % TBH BASOPHILS PERCENT AUTO 0.6 0.2 - 2.0 % TBH IMMATURE GRANULOCYTES PCT AUTO 0.3 0.0 - 0.5 % TBH NEUTROPHILS ABSOLUTE AUTO 6.6(H) 1.4 - 6.5 10 3/uL TBH LYMPHOCYTES ABSOLUTE AUTO 2.6 1.2 - 3.8 10 3/uL TBH MONOCYTES ABSOLUTE AUTO 0.6 0.3 - 0.8 10 3/uL TBH TBH EO # 0.2 0.0 - 0.7 10 3/uL TBH BASOPHILS ABSOLUTE AUTO 0.1 0.0 - 0.1 10 3/uL TBH IMMATURE GRANULOCYTES ABS AUTO 0.03 0.00 - 0.03 10 3/uL TBH 08/08/2023 8:44 AM EDT 08/08/2023 8:47 AM EDT Narrative [facility] - 08/08/2023 8:56 AM EDT Whit Ca TOOL PUSHER [facility] Final Result [facility] TB documented in this encounter Visit Diagnoses Not on filedocumented in this encounter Care Teams Service Secretary Relationship Specialty Start Date End Date Mushtaq Lu MD [address] [place] [address] PCP - General Family Medicine 08/01/23 Whit Ca NP [address] [place] [address] PCP - [employer] 03/08/24 Whit Ca NP [address] [place] [address] Nurse Practitioner Family Medicine 08/01/23 Patric Archer LPC Therapist Behavioral Health 05/20/24 Bette Logan, STEPHANI [address] URIOSTEGUIST. [facility] [place] [address] Strike Planning Applications Family Medicine 08/21/24 09/06/24 documented as of this encounter
--- OUTSIDE RECORDS SUMMARY | 2024-11-14 10:49 | XMS_ITS | Encounter Summary ---
Author Organization [facility] Address [address] [place] [address] Care Team Providers Care Electrocardiographic Technician Name Role Phone Mushtaq Lu MD Primary Care Provider [phone] Wiht Ca SEWING MACHINE ADJUSTER Unavailable [phone] Whit Ca SEWING MACHINE ADJUSTER Unavailable [phone] Patric Archer SPECIAL AGENT SECRET SERVICE Unavailable Unava ilable Bette Logan SOLAR ENERGY SYSTEM INSTALLER Unavailable [phone] Encounter Details Date Type Department Care Team (Late st Contact Info) Description 03/21/2024 Orders Only [facility] [address] [place] [address] Whit Ca, SEWING MACHINE ADJUSTER [address] [place] [address] Social History Tobacco Use Types [...] often do you attend chur ch or yazidism services? Never 07/25/2023 Do you belong to any clubs o r organizations such as uatsdin groups, unions, fraternal or athletic groups, or [...] Recorded Patient Health Questionnaire-2 Score 4 12/27/2023 [facility] Occupat ional Health - Occupational [...] place to sleep or slept in a assisted (including now)? No 07/25/2023 Comments Unknown Sex and Gender Information Value Date Recorded Sex Assigned at Not on file Legal Sex Female 8:00 PM EDT Gender Identity Not on file Sexual Orientation Not on file documented as of this encounter Plan of Treatment Upcoming Encounters Date Type Department Care Team (Late st Contact Info) Description 11/20/2024 4:00 PM EDT Clinical Support [facility] [address] [place] [address] Patric Archer LPC 01/01/2025 3:40 PM EDT Procedure Visit [facility] [address] [place] [address] Chuy Mcclain, DO [address] [place], [place] [id number] 01/15/2025 3:20 PM EDT Office Visit [facility] [address] [place] [address] Whit Ca NP [address] [place] [address] documented as of this encounter Procedures Procedure Name Priority Date/Time Associated Diagnosis Comments US PELVIS TRANSVAGINAL Routine 03/21/2024 8:11 AM EST documented in this encounter Results * US pelvis transvaginal (03/21/2024 8:11 AM EST) Anatomical Region Laterality Modality Pelvis Ultrasound us Whit Ca SEWING MACHINE ADJUSTER IMG US PROCEDURES Final Result documented in this encounter Visit Diagnoses Not on filedocumented in this encounter Additional Health Concerns Assessment Noted Time PHQ-9 Depression Total Score: 15 024 2:38 PM EDT documented as of this encounter Care Teams Electrocardiographic Technician Relationship Specialty Start Date End Date Mushtaq Lu MD [address] [place] [address] PCP - General Family Medicine 08/01/23 Whit Ca NP [address] [place] [address] PCP - [facility] 03/08/24 Whit Ca NP [address] [place] [address] Nurse Practitioner Family Medicine 08/01/23 Patric Archer LPC Therapist Behavioral Health 05/20/24 Bette Logan, STEPHANI [address] [facility] [place] [address] Tail Trimmer Family Medicine 08/21/24 09/06/24 documented as of this encounter
--- OUTSIDE RECORDS SUMMARY | 2024-11-14 10:49 | XMS_ITS | Encounter Summary ---
Author Organization [facility] Address [address] [place] [address] Care Team Providers Care Communications Programmer Name Role Phone Mushtaq Lu MD Primary Care Provider [phone] Whit Ca TRANSLATOR/INTERPRETER Unavailable [phone] Whit Ca TRANSLATOR/INTERPRETER Unavailable [phone] Patric Archer SURVEY OPERATIONS DIRECTOR Unavailable Unava ilable Bette Logan MARKETING COMMUNICATIONS SPECIALIST Unavailable [phone] Encounter Details Date Type Department Care Team (Late st Contact Info) Description 04/29/2024 Orders Only [facility] [address] [place] [address] Audi Angela MD [address] [place] [address] Social History Tobacco Use Types [...] often do you attend chur ch or temple services? Never 07/25/2023 Do you belong to any clubs o r organizations such as bahai groups, unions, fraternal or athletic groups, or [...] Recorded Patient Health Questionnaire-2 Score 4 12/27/2023 [facility] of Occupat ional Health - Occupational Stress [...] place to sleep or slept in a long term (including now)? No 07/25/2023 Comments Unknown Sex and Gender Information Value Date Recorded Sex Assigned at Not on file Legal Sex Female 8:00 PM EDT Gender Identity Not on file Sexual Orientation Not on file documented as of this encounter Plan of Treatment Upcoming Encounters Date Type Department Care Team (Late st Contact Info) Description 11/20/2024 4:00 PM EDT Clinical Support [facility] [address] [facility] [address] [place] [address] Patric Archer LPC 01/01/2025 3:40 PM EDT Procedure Visit [facility] [address] [place] [address] Chuy Mcclain, DO [address] [place], [place] [address] 01/15/2025 3:20 PM EDT Office Visit [facility] [address] [place] [address] Whit Ca NP [address] [place] [address] documented as of this encounter Procedures Procedure Name Priority Date/Time Associated Diagnosis Comments XR ABDOMEN 1 VIEW Routine 04/29/2024 9:31 AM EST documented in this encounter Results * XR abdomen 1 view (04/29/2024 9:31 AM EST) Anatomical Region Laterality Modality Abdomen Radiographic Ana ging us Audi Angela MD IMG XR PROCEDURES Final Resu lt documented in this encounter Visit Diagnoses Not on filedocumented in this encounter Additional Health Concerns Assessment Noted Time PHQ-9 Depression Total Score: 15 024 2:38 PM EDT documented as of this encounter Care Teams Communications Programmer Relationship Specialty Start Date End Date Mushtaq Lu MD [address] [place] [address] PCP - General Family Medicine 08/01/23 Whit Ca NP [address] [place] [address] PCP - [facility] 03/08/24 Whit Ca NP [address] [place] [address] Nurse Practitioner Family Medicine 08/01/23 Patric Archer LPC Therapist Behavioral Health 05/20/24 Bette Logan, STEPHANI [address] [place] [address] Psychometrician Family Medicine 08/21/24 09/06/24 documented as of this encounter
--- OUTSIDE RECORDS SUMMARY | 2024-11-14 10:49 | XMS_ITS | Encounter Summary ---
Author Organization [facility] Address [address] [place] [address] Care Team Providers Care Ballistic Expert Name Role Phone Mushtaq Lu MD Primary Care Provider [phone] Whit Ca FUEL CELL SYSTEMS ENGINEER Unavailable [phone] Whit Ca NP Unavailable [phone] Patric Archer SUPERVISOR TELEPHONE INFORMATION Unavailable Unava ilable Bette Logan SNOW PLOW TRACTOR OPERATOR Unavailable [phone] Encounter Details Date Type Department Care Team (Late st Contact Info) Description 03/21/2024 Clinisync Result Encounter [facility] External Department Unsolicited Whit Ca, FUEL CELL SYSTEMS ENGINEER [address] [place] [address] Social History Tobacco Use Types Packs/Day Years [...] week 07/25/2023 How often do you attend [facility] or uatsdin services? Never 07/25/2023 Do you belong to any clubs o r organizations such as gnosticism groups, unions, fraternal or athletic groups, or [...] Recorded Patient Health Questionnaire-2 Score 4 12/27/2023 [facility] [place] - Occupational Stress Questionnaire Answer Date Recorded [...] place to sleep or slept in a halfway (including now)? No 07/25/2023 Comments Unknown Sex and Gender Information Value Date Recorded Sex Assigned at Not on file Legal Sex Female 8:00 PM EDT Gender Identity Not on file Sexual Orientation Not on file documented as of this encounter Plan of Treatment Upcoming Encounters Date Type Department Care Team (Late st Contact Info) Description 11/20/2024 4:00 PM EDT Clinical Support [facility] [address] [place] [address] Patric Archre LPC 01/01/2025 3:40 PM EDT Procedure Visit [facility] [address] [place] [address] Chuy Mcclain, DO [address] [place], [place] [address] 01/15/2025 3:20 PM EDT Office Visit [facility] [address] [place] [address] Whit Ca, PALLAVI [address] [place] [address] documented as of this encounter Procedures Procedure Name Priority Date/Time Associated Diagnosis Comments US PELVIS W/ TRANSVAGINAL 03/21/2024 4:36 AM EST documented in this encounter Results * US PELVIS W/ TRANSVAGINAL (03/21/2024 4:36 AM EST) Anatomical Region Laterality Modality Other 03/21/2024 4:36 AM EST Narrative 03/21/2024 4:38 AM EST [address] [address] Ultrasound Report Signed Patient: RAMIN DANIELLE MR#: [id number] : 1990 Acct:[id number] Age/Sex: 34 / F ADM Date: 03/16/24 Loc: US Attending Dr: Whit Ca NP Ordering Physician: Whit Ca NP Date of Service: 03/16/24 Procedure(s): US pelvis w/ transvaginal Accession Number(s): [id number] cc: Whit Ca NP [place] [address] Patient Name: RAMIN DANIELLE MRN: [id number] date: 1990 Sex: F Assigned Patient Location: US Current Patient Location: Accession/Order Number: [id number] Exam Date: 03/16/2024 13:06 Report Date: 03/21/2024 04:36 At the request of: WHIT CA Procedure: US pelvis w/ transvaginal EXAMINATION: US pelvis w/ transvaginal HISTORY: POLYCYSTIC OVARIES E28.2 COMPARISON: No relevant comparison available. TECHNIQUE: Transabdominal and/or transvaginal sonographic examination was performed as indicated by examination type. FINDINGS: UTERUS: Several small nabothian cysts within swift of cervix. Normal size and contour of uterus. Uterus size: 7.3 x 3.4 x 4.5 cm ENDOMETRIUM: Normal homogeneous appearance. Endometrial thickness: 6 mm RIGHT OVARY: Normal size and appearance. Duplex Doppler demonstrates normal waveform and flow; resistive index 0.4. Ovary size: 3.5 x 2.2 x 2.1 cm LEFT OVARY: Normal size and appearance. Duplex Doppler demonstrates normal waveform and flow; resistive index 0.5. Ovary size: 2.9 x 2.4 x 2.0 cm CUL-DE-SAC: Unremarkable. No significant free fluid. BLADDER: Unremarkable. OTHER: None. US/US pelvis w/ transvaginal IMPRESSION: 1. No ultrasound evidence of polycystic ovarian syndrome. Electronically authenticated by: ISMAEL Clay: 03/21/2024 04:36 Dictated By: Ismael Iqbal M.D. Signed By: 03/21/24437 DD/ 5 TD/TT: Loader Magazine Grinder: Procedure Note Radiology, Radiologist, - 03/21/2024 [place] [address] Ultrasound Report Signed Patient: RAMIN DANIELLE LMR#: [id number] : 1990Acct:[id number] Age/Sex: 34 / FADM Date: 03/16/24 Loc: US Attending Dr: Whit Ca NP Ordering Physician: Whit Ca NP Date of Service: 03/16/24 Procedure(s): US pelvis w/ transvaginal Accession Number(s): [id number] cc: Whit Ca NP [place] [address] Patient Name: RAMIN DANIELLE MRN: [id number] date: 1990 Sex: F Assigned Patient Location: US Current Patient Location: Accession/Order Number: [id number] Exam Date: 03/16/2024 13:06 Report Date: 03/21/2024 04:36 At the request of: WHIT CA Procedure: US pelvis w/ transvaginal EXAMINATION: US pelvis w/ transvaginal HISTORY: POLYCYSTIC OVARIES E28.2 COMPARISON: No relevant comparison available. TECHNIQUE: Transabdominal and/or transvaginal sonographic examination was performed as indicated by examination type. FINDINGS: UTERUS: Several small nabothian cysts within swift of cervix. Normal sizeand contour of uterus. Uterus size: 7.3 x 3.4 x 4.5 cm ENDOMETRIUM: Normal homogeneous appearance. Endometrial thickness: 6 mm RIGHT OVARY: Normal size and appearance. Duplex Doppler demonstratesnormal waveform and flow; resistive index 0.4. Ovary size: 3.5 x 2.2 x 2.1 cm LEFT OVARY: Normal size and appearance. Duplex Doppler demonstrates normal waveform and flow; resistive index 0.5. Ovary size: 2.9 x 2.4 x 2.0 cm CUL-DE-SAC: Unremarkable. No significant free fluid. BLADDER: Unremarkable. OTHER: None. US/US pelvis w/ transvaginal IMPRESSION: 1. No ultrasound evidence of polycystic ovarian syndrome. Electronically authenticated by: ISMAEL IQBAL Date: 03/21/2024 04:36 Dictated By: Ismael Iqbal M.D. Signed By:03/21/24437 DD/ 5 TD/TT: Loader Magazine Grinder: us Whit Ca NP [facility] Final Result documented in this encounter Visit Diagnoses Not on filedocumented in this encounter Additional Health Concerns Assessment Noted Time PHQ-9 Depression Total Score: 15 024 2:38 PM EDT documented as of this encounter Care Teams Ballistic Expert Relationship Specialty Start Date End Date Mushtaq Lu MD [address] [place] [address] PCP - General Family Medicine 08/01/23 Whit Ca NP [address] [place] [address] PCP - [employer] 03/08/24 Whit Ca NP [address] [place] [address] Nurse Practitioner Family Medicine 08/01/23 Patric Archer LPC Therapist Behavioral Health 05/20/24 Bette Logan, STEPHANI [address] [facility] [place] [address] Milk Wagon Driver Family Medicine 08/21/24 09/06/24 documented as of this encounter
--- OUTSIDE RECORDS SUMMARY | 2024-11-14 10:49 | XMS_ITS | Encounter Summary ---
Author Organization [facility] Address [address] [place] [address] Care Team Providers Care Drill Press Operator Numerical Control Name Role Phone Mushtaq Lu MD Primary Care Provider [phone] Whit Ca ACCOUNTS RECEIVABLE COORDINATOR Unavailable [phone] Whit Ca ACCOUNTS RECEIVABLE COORDINATOR Unavailable [phone] [address] DRIVER Unavailable Unava ilable Bette Logan GOLF CLUB WEIGHTER Unavailable [phone] Encounter Details Date Type Department Care Team (Late st Contact Info) Description 04/27/2024 Clinisync Result Encounter [facility] External Department Unsolicited [...] any clubs o r organizations such as confucianist groups, unions, fraternal or athletic groups, or [...] Recorded Patient Health Questionnaire-2 Score 4 12/27/2023 [facility] of Occupat ional [facility] - Occupational Stress Questionnaire Answer [...] [address] [place] [address] Patric Archer LPC 01/01/2025 3:40 PM EDT Procedure Visit [facility] [address] [place] [address] Chuy Mcclain, DO [address] [place], [place] [address] 01/15/2025 3:20 PM EDT Office Visit [facility] [address] [place] [address] Whit Ca NP [address] [place] [address] documented as of this encounter Procedures Procedure Name Priority Date/Time Associated Diagnosis Comments XR ABDOMEN 1V 04/27/2024 7:07 AM EST documented in this encounter Results * XR ABDOMEN 1V (04/27/2024 7:07 AM EST) Anatomical Region Laterality Modality Other 04/27/2024 7:07 AM EST Narrative 04/27/2024 7:10 AM EST The [address] [address] XRay Report Signed Patient: RAMIN DANIELLE MR#: [id number] : 1990 Acct:[id number] Age/Sex: 34 / F ADM Date: 04/25/24 Loc: RAD Attending Dr: Audi Angela M.D. Ordering Physician: Audi Angela M.D. Date of Service: 04/25/24 Procedure(s): XR abdomen 1V Accession Number(s): [id number] cc: Whit Ca ACCOUNTS RECEIVABLE COORDINATOR; Audi Angela M.D. The [place] [id number] Patient Name: RAMIN DANIELLE MRN: [id number] date: 1990 Sex: F Assigned Patient Location: RAD Current Patient Location: Accession/Order Number: [id number] Exam Date: 04/25/2024 15:35 Report Date: 04/27/2024 07:07 At the request of: AUDI ANGELA Procedure: XR abdomen 1V EXAMINATION: XR abdomen 1V HISTORY: Kidney Stone COMPARISON: CT abdomen pelvis 02/19/2024, XR abdomen 04/17/2023 FINDINGS: KIDNEY/URETER - RIGHT: No visible renal or ureteral calcifications. KIDNEY/URETER - LEFT: No visible renal or ureteral calcifications. PELVIS: No visible ureteral calcifications. BOWEL: No abnormal dilation or deviation. BONES: No acute abnormality. OTHER: Negative. No abnormal gaseous collections. XR/XR abdomen 1V IMPRESSION: 1. No convincing urinary tract calculi. Electronically authenticated by: ISMAEL IQBAL Date: 04/27/2024 07:07 Dictated By: Ismael Iqbal M.D. Signed By: 04/27/24 0710 DD/ 0707 TD/TT: Principal Cloud Architect: Procedure Note Radiology, Radiologist, MD - 04/29/2024 [place] [address] XRay Report Signed Patient: RAMIN DANIELLE LMR#: [id number] : 1990Acct:[id number] Age/Sex: 34 / FADM Date: 04/25/24 Loc: RAD Attending Dr: Audi Angela M.D. Ordering Physician: Audi Angela M.D. Date of Service: 04/25/24 Procedure(s): XR abdomen 1V Accession Number(s): [id number] cc: Whit Ca NP; Audi Angela M.D. [address] [address] Patient Name: RAMIN DANIELLE MRN: [id number] date: 1990 Sex: F Assigned Patient Location: [facility] Current Patient Location: Accession/Order Number: [id number] Exam Date: 04/25/2024 15:35 Report Date: 04/27/2024 07:07 At the request of: AUDI ANGELA Procedure: XR abdomen 1V EXAMINATION: XR abdomen 1V HISTORY: Kidney Stone COMPARISON: CT abdomen pelvis 02/19/2024, XR abdomen 04/17/2023 FINDINGS: KIDNEY/URETER - RIGHT: No visible renal or ureteral calcifications. KIDNEY/URETER - LEFT: No visible renal or ureteral calcifications. PELVIS: No visible ureteral calcifications. BOWEL: No abnormal dilation or deviation. BONES: No acute abnormality. OTHER: Negative. No abnormal gaseous collections. XR/XR abdomen 1V IMPRESSION: 1. No convincing urinary tract calculi. Electronically authenticated by: ISMAEL IQBAL Date: 04/27/2024 07:07 Dictated By: Ismael Iqbal M.D. Signed By:04/27/2410 DD/ 6 TD/TT: Principal Cloud Architect: Generic External Data Provider [facility] Final Result documented in this encounter Visit Diagnoses Not on filedocumented in this encounter Additional Health Concerns Assessment Noted Time PHQ-9 Depression Total Score: 15 024 2:38 PM EDT documented as of this encounter Care Teams Drill Press Operator Numerical Control Relationship Specialty Start Date End Date Mushtaq Lu MD [address] [place] [address] PCP - General Family Medicine 08/01/23 Whit Ca NP [address] [place] [address] PCP - Tawanna Chung 03/08/24 Whit Ca NP [address] [place] [address] Nurse Practitioner Family Medicine 08/01/23 Patirc Archer LPC Therapist Behavioral Health 05/20/24 Bette Logan, STEPHANI [address] [place] [address] Principal Consulting Engineer Family Medicine 08/21/24 09/06/24 documented as of this encounter
[2024-11-14 11:15] LABS: Hematocrit 38.4 % (36.0-48.0); Hemoglobin 12.5 g/dL (12.0-16.0); Immature Granulocytes Abs Auto 0.03 10^3/uL (0.00-0.03); Immature Granulocytes Pct Auto 0.3 % (0.0-0.5); Lymphocytes Absolute Auto 1.5 10^3/uL (1.2-3.8); Mean Corpuscular HGB Conc 32.6 g/dL (29.9-35.2); Mean Corpuscular Hemoglobin 27.2 pg (26.7-34.0); Mean Corpuscular Volume 83.5 fL (81.0-99.0); Platelet Count 326 10^3/uL (150-450); Red Blood Count 4.60 10^6/uL (4.20-5.40); White Blood Count 9.1 10^3/uL (4.0-11.0)
[2024-11-14 11:44] LABS: Glucose Urine UA NEGATIVE (NEGATIVE)
[2024-11-14 11:50] LABS: Alanine Aminotransferase 22 U/L (14-59); Albumin Globulin Ratio 0.9; Albumin Level 3.5 g/dL (3.4-5.0); Alkaline Phosphatase 82 U/L (46-116); Anion Gap 12.0; Aspartate Amino Transferase 15 U/L (15-37); Blood Urea Nitrogen 10.0 mg/dL (7.0-18.0); Calcium 9.1 mg/dL (8.5-10.1); Carbon Dioxide 28.9 mmol/L (21.0-32.0); Chloride 105 mmol/L (98-107); Cholesterol 209 mg/dL (<=200); Estimated GFR (African America >60 (>=60 mL/min/1.73m^2); Estimated GFR (Non-African Ame >60 (>=60 mL/min/1.73m^2); Globulin 4.1 g/dL; Glucose 103 mg/dL (74-106); HDL Cholesterol 50 mg/dL (40-60); Potassium 3.9 mmol/L (3.5-5.1); Sodium 142 mmol/L (136-145); Thyroid Stimulating Hormone 0.890 uIU/mL (0.358-3.740); Total Protein 7.6 g/dL (6.4-8.2); Triglycerides 76 mg/dL (<=150); VLDL CHOLESTEROL 15.2 mg/dL
[2024-11-14 12:08] LABS: Cast Seen? NONE SEEN #/LPF (NONE SEEN); Crystals Seen? None Seen #/HPF (None Seen)
== END 2024-11-14 10:44 | disposition home or self-care (01) ==
PROVIDERS: PCP Nurse Practitioner; Visit Provider Nurse Practitioner
DX: G47.33 Obstructive sleep apnea (adult) (pediatric) (principal); I10 Essential (primary) hypertension; E66.01 Morbid (severe) obesity due to excess calories; R73.03 Prediabetes
CPT/HCPCS: 36415; 80053; 80061; 81001; 82043; 82570; 83036; 84443; 85025

== ENCOUNTER 2025-01-01 19:49 | Outpatient (REF) | payer BC, SELFPAY ==
--- OUTSIDE RECORDS SUMMARY | 2025-01-01 19:56 | XMS_ITS | CCD ---
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 [facility] Comment on above: Performed By: #### 2 106-3 #### [facility] ([id number]) [address] [place] [address] Ambulatory Visit Summaryon 1 07-01-2023 Ambulatory Visit Summary Ambulatory Visit Summary RAMIN LANIER :1990 Visit Date:04/29/2024 Ambulatory Visit Instructions Your Diagnosis Kidney stone Asymptomatic microscopic hematuria Family history of kidney disease Your Care Team Attending Physician - ALESSANDRO EGAN, Audi Felton Primary Care Physician - WHIT CA CNP This Is Your Medications List Contact prescribing physician if questions or concerns busPIRone labetalol (labetalol 100 mg Tab) trazodone Procedures Performed Cholecystectomy (08/29/2023), Cystoscopy (04/18/2023). Discharge Vitals Temperature (Oral) 37 ???C Heart Rate (Peripheral) 82 Respiratory Rate 18 Blood Pressure 132/84 Height 163 cm Height 64 in Weight 128.9 kg Weight 284.176 lb BMI 48.52 What to do next You Need to Schedule the Following Appointments Follow Up with ALESSANDRO EGAN, Audi Felton, URL When: Only if needed Where: [facility] [address] , [place] [address] [phone] Medications What How Much When Instructions Unchanged busPIRone 5 Milligram By Mouth 2 times a day Contact prescribing physician if questions or concerns Unchanged labetalol (labetalol 100 mg Tab) Contact prescribing physician if questions or concerns Unchanged trazodone 50 Milligram By Mouth Once a day (at bedtime) Contact prescribing physician if questions or concerns Allergies Strawberries (Rash) penicillin (Unknown) Problems Ongoing - Any problem that you are currently receiving treatment for. Asymptomatic microscopic hematuria Family history of kidney disease Family history of kidney stones Female infertility Kidney stone Lumbar back pain Oligomenorrhea PCOS (polycystic ovarian syndrome) Pre-diabetes Verruca vulgaris Patient Survey You may receive a survey via text or e-mail asking about your office visit. Please share your experience with us by completing your survey. We appreciate your feedback and thank you for choosing us for your care. Education Materials Kidney Stones Kidney stones are rock-like masses that form inside of the kidneys. Kidneys are organs that make pee (urine). A kidney stone may move into other parts of the urinary tract, including: ??? The tubes that connect the kidneys to the bladder (ureters). ??? The bladder. ??? The tube that carries urine out of the body (urethra). Kidney stones can cause very bad pain and can block the flow of pee. The stone usually leaves your body through your pee. A doctor may need to take out the stone. What are the causes? Kidney stones may be caused by: ??? Too much calcium in the body. This may be caused by too much parathyroid hormone in the blood. ??? Uric acid crystals in the bladder. The body makes uric acid when you eat certain foods. ??? Narrowing of one or both of the ureters. ??? A kidney blockage that you were born with. ??? Past surgery on the kidney or the ureters. What increases the risk? You are more likely to develop this condition if: ??? You have had a kidney stone in the past. ??? Other people in your family have had kidney stones. ??? You do not drink enough water. ??? You eat a diet that is high in protein, salt (sodium), or sugar. ??? You are very overweight (obese). What are the signs or symptoms? Symptoms of a kidney stone may include: ??? Pain in the side of the belly, right below the ribs. Pain usually spreads to the groin. ??? Needing to pee often or right away. ??? Pain when peeing. ??? Blood in your pee. ??? Feeling like you may vomit (nauseous). ??? Vomiting. ??? Fever and chills. How is this treated? Treatment depends on the size, location, and makeup of the kidney stones. The stones will often pass out of the body when you pee. You may need to: ??? Drink more fluid to help pass the stone. ? In some cases, you may be given fluids through an IV tube at the hospital. ??? Take medicine for pain. ??? Change your diet to help keep kidney stones from coming back. Sometimes, you may need: ??? A procedure to break up kidney stones using a beam of light (laser) or shock waves. ??? Surgery to remove the kidney stones. Follow these instructions at home: Medicines ??? Take ksoe-ylc-bphfjqy and prescription medicines only as told by your doctor. ??? Ask your doctor if the medicine prescribed to you requires you to avoid driving or using machinery. Eating and drinking ??? Drink enough fluid to keep your pee pale yellow. ? You may be told to drink at least 8???10 glasses of water each day. This will help you pass the stone. ??? If told by your doctor, change your diet. You may be told to: ? Limit how much salt you eat. ? Eat more fruits and vegetables. ? Limit how much meat, poultry, fish, and eggs you eat. ??? Follow instructions from your doctor about what you may eat and drink. Genera (more content not included)... Normal [facility] Office/Clinic Noteon 04-29-2024 Urology Office/Clinic Note Urology Office/Clinic Note Chief Complaint 1yr w/ KUB HPI Staff 34yr old female pt here for 1yr f/u with KUB. KUB completed 04/25/24. Previous Dx: kidney stone, asymptomatic microscopic hematuria, family history of kidney disease S/p cysto 04/18/22 Denies all urinary symptoms. Denies hematuria - pt currently on her period Denies flank pain. History of Present Illness Tests reviewed: reviewed UA, KUB I have reviewed the previous health record information and history for this patient from Dr. Francois. I have reviewed and verified the staff HPI to be accurate for this encounter. Review of Systems PHQ Score Initial Depression Screen Score: 2 SCORE ROS - Provider Constitutional: denies weight [...] See HPI. Physical Exam Vitals & Measurements T: 37 ???C(Oral) HR: 82(Peripheral) RR: 18 BP: 132/84 HT: 64 in HT: 163 cm WT: 128.9 kg WT: 284.176 lb BMI: 48.52 General Appearance: alert , no acute distress, well nourished, well developed female. Assessment/Plan 1. Kidney stone (N20.0: Calculus of kidney) KUB 01/17/22 - no urinary tract calculi. CTU 04/15/22 - punctate 2 mm lower pole right nephrolith. No hydro. KUB 04/17/23 - previously noted small 2 mm calculus in the right kidney not convincingly demonstrated which is nonspecific, possibly a noncalcified calculus. KUB 04/25/24 TBH - No stones id'd. Has never required intervention for stones. No prior hx of stone passage. Family history of kidney stones. Reviewed imaging results. Denies any stone passage since last encounter. Discussed possibility of prior stone seen on CT just not being visible on x-ray vs pt passing stone wo realizing. Drinks ~3-4 bottles of water per day. Recommended pt to increase this to 10-12, 16oz bottles per day. -Increase water intake 2. Asymptomatic microscopic hematuria (R31.21: Asymptomatic microscopic hematuria) UA 12/21/21 shows trace-lysed blood, 2-5 RBCs. UA 11/30/21 shows trace-intact blood, 2-5 RBCs. S/p cysto 04/18/22 neg for b.t. or lesions. Urine cytology 03/2022 negative. [1] UA today shows large blood, currently menstruating. Denies gross hematuria outside of cycle. 3. Family history of kidney disease (Z84.1: Family history of disorders of kidney and ureter) Pt's father has kidney disease and had a kidney transplant in October 2022. Follow-up With When Contact Information ALESSANDRO EGAN, Audi Felton, URL Only if needed [facility] [address], [place] [phone] Additional Instructions: Patient Education Kidney Stones, Ykkj-ss-Qjmd Jane Snow, personally scribed for Dr. Francois on 04/29/2024 16:43:27. . Documentation recorded by the scribe, Jane Garcia, accurately reflects the services(s) I performed and decisions made by me. Authenticated by Dr. Francois on 04/29/2024 16:46:55. Problem List/Past Medical History Ongoing Asymptomatic microscopic hematuria Family history of kidney disease Family history of kidney stones Female infertility Kidney stone Lumbar back pain Oligomenorrhea PCOS (polycystic ovarian syndrome) Pre-diabetes Verruca vulgaris Historical No qualifying data Procedure/Surgical History Cholecystectomy (08/29/2023), Cystoscopy (04/18/2023). Medications busPIRone, 5 mg, Oral, BID labetalol 100 mg Tab trazodone, 50 mg, Oral, Once a day (at bedtime) Allergies Strawberries (Rash) penicillin (Unknown) Social History Alcohol Never., 04/29/2024 Substance Abuse Never., 04/29/2024 Tobacco Former smoker, quit more than 30 days ago Tobacco Use:. Never Smokeless Tobacco Use:. Cigarettes, 04/29/2024 Family History Alcoholism: Sister. Hypertension: Mother and Father. Kidney disease: Father. Kidney stone: Sister. Migraine: Mother and Sister. Immunizations Vaccine Date Status Comments SARS-CoV-2 (COVID-19) mRNA BNT-162b2 vax 08/30/2020 Recorded 2022-04-04: TPVAL SARS-CoV-2 (COVID-19) mRNA BNT-162b2 vax 08/07/2020 Recorded 2022-04-04: TPVAL measles/mumps/rubella virus vaccine 09/21/2001 Recorded Lab Results Ambulatory Point of Care Results POC Test Comments: Pt currently menstrating (04/29/24 15:40:00) Bilirubin Urine Dipstick: 1+ Small (04/29/24 15:40:00) Blood Urine Dipstick: 3+ Large (04/29/24 15:40:00) Glucose Urine Dipstick: Negative (04/29/24 15:40:00) Ketones Urine Dipstick: Trace - 5 mg/dl (04/29/24 15:40:00) Leukocytes Urine Dipstick: Negative (04/29/24 15:40:00) Nitrite Urine Dipstick: Negative (04/29/24 15:40:00) Prote (more content not included)... Normal [facility] Comment on above: Result Comment: Elec tronically Signed By: Audi FRANCOIS MD\.br\Date and Time Signed: 04/29/24 16:47 EST\.br\Electronically Co-Signed By: Jane Garcia\.br\Date and Time Co-Signed: 04/29/24 16:44 EST IGP,APTIMA HPV,AGE GDLNon AGE GDLN ACOG TESTING Note . [facility] Comment on above: TESTS RESULT FLAG UN ITS REF RANGE LAB Clinician Provided Cytology Information Source.............Cervix;Endocervix LMP / Prev Treat...XIE=[id number] No. of containers..01 ThinPrep Vial Age Algo ACOG Norah... 30-65 01 FLAG LEGEND: L-Low Normal,H-High Normal,LL-Alert Low,HH-Alert High <-Panic Low,>-Panic High,A-Abnormal,AA-Critical Abnormal Performed at: 01 =G [address] [id number] Yesenia Nelson MD, HPV APTIMA Positive Abnormal Negative [facility] Comment on above: This nucleic acid am plification test detects fourteen high- risk HPV types (16,18,31,33,35,39,45,51,52,56,58,59,66,68) without differentiation. Performed at: =G - [facility], [place] [id number] Community Development Specialist: Yesenia Nelson MD, Phone: [phone] Performed at: - [facility], [place] [id number] Community Development Specialist: Yesenia Nelson MD, Phone: [phone] IGP, APTIMA HPV, RFX 16/18,45 Note Abnormal . [facility] Comment on above: TESTS RESULT FLAG UN ITS REF RANGE LAB DIAGNOSIS: [A] 02 EPITHELIAL CELL ABNORMALITY. LOW GRADE SQUAMOUS INTRAEPITHELIAL LESION (LSIL). Specimen adequacy: 02 Satisfactory for evaluation. No endocervical component is identified. Performed by: 02 Fallon Ferrara, Player Piano Technician (ASCP) Electronically si... 02 Sarai Martins [...] Low,>-Panic High,A-Abnormal,AA-Critical Abnormal Performed at: [address] [facility] [place] [address] Yesenia Nelson MD, Interpretation and review of laboratory results Abnormal [facility] BROOM-ALONE 03/26/2024 CERVIX ENDOCERVIX CLINISYNC [facility] HbA1c (Bld) [Mass fraction]o n 03-05-2024 Interpretation and review of laboratory results Normal [facility] - Hematology and Cell countson 03-05-2024 HbA1c (Bld) [Mass fraction] 5.50 % [facility] Francis 08-29-2023 L Specimen: [id number] Received: 08/30/23 Status: FATUMA Ray Num: [id number] Spec Type: Surgical Subm Dr: NON STAFF Tissues: A Gallbladder (GALLBLADDER) Procedures: HE, Gross/Micro L3 Age/ Patient Sex Location Account Attending Physician Ramin Hernandez 33/F [facility] [id number] NON STAFF SPEC NUM: [id number] RECD: 08/30/23 STATUS: FATUMA RAY NUM: [id number] RADHA: 08/29/[address]: NON STAFF ENTERED: 08/30/23 [facility] DR: [facility] SPEC TYPE: Surgical DEPT: SAW LANDIN ORDERED: [...] 0.1 to 0.2 cm in maximum thickness. [employer] Business [employer] sections are submitted in A1. Clinical history: Symptomatic cholelithiasis CPT Codes 66850 Specimen: [id number] Received: 08/30/23 Status: FATUMA Ray Num: [id number] Spec Type: Surgical Subm Dr: NON STAFF Tissues: A Gallbladder (GALLBLADDER) Procedures: Adiel STEWARD/Placido L3 Patient: Ramin Hernandez [id number] (Continued) Signed (signature on file) Zain Blackburn MD 08/31/23 1703 Normal [facility] Covid-19 PCR (CVDTBH)on 09-05 SARS-CoV-2 (COVID-19) RNA CRISTEL+probe Ql (Unsp spec) Not detected Normal NOT DETECTED [facility] Comment on above: Performed By: #### C VDAGS #### [facility] [address] [place] [address] Dr. Alexei Gonzales INFLUENZA A AND B AGon 09-20 INFLUANEGH SEE BELOW Normal [facility] Comment on above: Result Comment: Nega tive for Flu A protein angiten. Infection due to Flu A cannot be ruled out. Flu A angiten in the sample may be below the detection limit of the test. Performed By: #### I NFLUAB #### [facility] [address] [place] [address] Dr. Alexei Gonzales INFLUBNEGH SEE BELOW Normal [facility] Comment on above: Result Comment: Nega tive for Flu B protein antigen. Infection due to Flu B cannot be ruled out. Flu B antigen in the sample may be below the detection limit of the test. Performed By: #### I NFLUAB #### [facility] [address] [place] [address] Dr. Alexei Gonzales INFLUENZA A AG Negative Normal NEGATIVE SEE COMMENT [facility] Comment on above: Performed By: #### I NFLUAB #### [facility] [address] [place] [address] Dr. Alexei Gonzales INFLUENZA B AG Negative Normal NEGATIVE SEE COMMENT [facility] Comment on above: Performed By: #### I NFLUAB #### [facility] [address] [place] [address] Dr. Alexei Gonzales SYMPTOMATIC COVID-19 ANTIGEN on 09-20-2022 EUA Statement SEE BELOW Normal [facility] Comment on above: Result Comment: This test [...] sooner. Performed By: #### C VDAGS #### [facility] [address] [place] [address] Dr. Alexei Gonzales SARS-CoV-2 (COVID-19) RNA CRISTEL+probe Ql (Unsp spec) Negative Normal NEGATIVE [facility] Comment on above: Performed By: #### C VDAGS #### [facility] [address] [place] [address] Dr. Alexei Gonzales CULTURE WOUNDon 08-31-2022 CULTURE WOUND Culture Observations : ANAEROBE PRESENT. Isolate 1 Peptoniphilus lacrimalis Light growth of Normal [facility] Comment on above: Performed By: #### C VDAGS #### [facility] [address] [place] [address] Dr. Alexei Gonzales CBC AUTO DIFFon 05-13-2022 BASO # 0.1 103/ul Normal 0.0-0.1 [facility] Comment on above: Performed By: #### C BC #### [facility] [address] [place] [address] Dr. Alexei Gonzales Basophils/100 WBC (Bld) 0.7 % Normal 0.2-2.0 [facility] Comment on above: Performed By: #### C BC #### [facility] [address] [place] [address] Dr. Alexei Gonzales EO # 0.0 103/ul Normal 0.0-0.7 [facility] Comment on above: Performed By: #### C BC #### [facility] [address] [place] [address] Dr. Alexei Gonzales Eosinophils/100 WBC (Bld) 0.1 % Critically low 0.9-7.0 [facility] Comment on above: Performed By: #### C BC #### [facility] [address] [address] [address] Alexei Gonzales Erythrocyte distribution width (RBC) [Ratio] 14.6 % Normal 11.0-15.0 [facility] Comment on above: Performed By: #### C BC #### [facility] [address] [address] [address] Alexei Gonzales Hematocrit (Bld) [Volume fraction] 38.5 % Normal 36.0-48.0 [facility] Comment on above: Performed By: #### C BC #### [facility] [address] [address] [address] Alexei Gonzales Hemoglobin (Bld) [Mass/Vol] 13.0 g/dL Normal 12.0-16.0 [facility] Comment on above: Performed By: #### C BC #### [facility] [address] [place] [address] Dr. Alexei Gonzales IG # 0.04 10e3/ul Critically high 0.00-0.03 [facility] Comment on above: Performed By: #### C BC #### [facility] [address] [place] [address] Dr. Alexei Gonzales IG % 0.5 % Normal 0.0-0.5 [facility] Comment on above: Performed By: #### C BC #### [facility] [address] [address] [address] Alexei Gonzales LYMPH # 0.3 103/ul Critically low 1.2-3.8 [facility] Comment on above: Performed By: #### C BC #### [facility] [address] [place] [address] Dr. Alexei Gonzales Lymphocytes/100 WBC (Bld) 4.6 % Critically low 20.5-60.0 [facility] Comment on above: Performed By: #### C BC #### [facility] [address] [place] [address] Dr. Alexei Gonzales MANUAL DIFF REQ NO Normal [facility] Comment on above: Performed By: #### C BC #### [facility] [address] [place] [address] Dr. Alexei Gonzales MCH (RBC) [Entitic mass] 27.0 pg Normal 26.7-34.0 [facility] Comment on above: Performed By: #### C BC #### [facility] [address] [place] [address] Dr. Alexei Gonzales MCHC (RBC) [Mass/Vol] 33.8 g/dL Normal 29.9-35.2 [facility] Comment on above: Performed By: #### C BC #### [facility] [address] [place] [address] Dr. Alexei Gonzales MCV (RBC) [Entitic vol] 79.9 fL Critically low 81.0-99.0 [facility] Comment on above: Performed By: #### C BC #### [facility] [address] [place] [address] Dr. Alexei Gonzales MONO # 0.7 103/ul Normal 0.3-0.8 [facility] Comment on above: Performed By: #### C BC #### [facility] [address] [place] [address] Dr. Alexei Gonzales Monocytes/100 WBC (Bld) 10.1 % Normal 1.7-12.0 [facility] Comment on above: Performed By: #### C BC #### [facility] [address] [place] [address] Dr. Alexei Gonzales NEUT # 6.2 103/ul Normal 1.4-6.5 [facility] Comment on above: Performed By: #### C BC #### [facility] [address] [place] [address] Dr. Alexei Gonzales Neutrophils/100 WBC (Bld) 84.0 % Critically high 43.0-75.0 [facility] Comment on above: Performed By: #### C BC #### [facility] [address] [place] [address] Dr. Alexei Gonzales Platelet mean volume (Bld) [Entitic vol] 10.2 fL Normal 9.5-13.5 [facility] Comment on above: Performed By: #### C BC #### [facility] [address] [place] [address] Dr. Alexei Gonzales PLT 266 103/ul Normal 150-450 [facility] Comment on above: Performed By: #### C BC #### [facility] [address] [place] [address] Dr. Alexei Gonzales RBC 4.82 106/ul Normal 4.20-5.40 [facility] Comment on above: Performed By: #### C BC #### [facility] [address] [place] [address] Dr. Alexei Gonzales WBC 7.3 103/ul Normal 4.0-11.0 [facility] Comment on above: Performed By: #### C BC #### [facility] [address] [place] [address] Dr. Alexei Gonzales Cov[facility]19 PCR [facility]on SARS-CoV-2 (COVID-19) RNA CRISTEL+probe Ql (Unsp spec) Not detected Normal NOT DETECTED [facility] Comment on above: Result Comment: This test is not yet approved or cleared by the [place] FDA. When there are no FDA-approved or cleared tests available, and other criteria are met, FDA can make tests available under an emergency access mechanism called an Emergency Use Authorization (EUA). The EUA for this test is supported by the Vehicle Operator of Health and Human Service's (HHS's) declaration [...] SARS-CoV-2. Performed By: #### C BC #### [facility] [address] [place] [address] Dr. Alexei Gonzales GROUP A STREP CULTUREon S. pyogenes Ag Ql (Unsp spec) Culture Observations: NEGATIVE FOR GROUP A STREPTOCOCCUS. Normal [facility] Comment on above: Performed By: #### C VDAGS #### [facility] [address] [place] [address] Dr. Alexei Gonzales INFLUENZA A AND B AGon 05-13 INFLUANEGH SEE BELOW Normal [facility] Comment on above: Result Comment: Nega tive for Flu A protein angiten. Infection due to Flu A cannot be ruled out. Flu A angiten in the sample may be below the detection limit of the test. Performed By: #### C BC #### [facility] [address] [place] [address] Dr. Alexei Gonzales INFLUBNEGH SEE BELOW Normal [facility] Comment on above: Result Comment: Nega tive for Flu B protein antigen. Infection due to Flu B cannot be ruled out. Flu B antigen in the sample may be below the detection limit of the test. Performed By: #### C BC #### [facility] [address] [place] [address] Dr. Alexei Gonzales INFLUENZA A AG Negative Normal NEGATIVE SEE COMMENT [facility] Comment on above: Performed By: #### C BC #### [facility] [address] [place] [address] Dr. Alexei Gonzales INFLUENZA B AG Negative Normal NEGATIVE SEE COMMENT [facility] Comment on above: Performed By: #### C BC #### [facility] [address] [place] [address] Dr. Alexei Gonzales PREG HCG QUALon 05-13-2022 , QUAL Negative Normal NEGATIVE [facility] Comment on above: Performed By: #### C VDAGS #### [facility] [address] [place] [address] Dr. Alexei Gonzales PROF 14(COMP METB)on 023 Albumin [Mass/Vol] 3.6 g/dL Normal 3.4-5.0 [facility] Comment on above: Performed By: #### C MP #### [facility] [address] [place] [address] Dr. Alexei Gonzales Albumin/Globulin [Mass ratio] 0.8 {ratio} Normal [facility] Comment on above: Performed By: #### C MP #### [facility] [address] [address] [address] Alexei Gonzales ALP [Catalytic activity/Vol] 95 U/L Normal 46-116 [facility] Comment on above: Performed By: #### C MP #### [facility] [address] [address] [address] Alexei Gonzales ALT [Catalytic activity/Vol] 62 U/L Critically high 14-59 [facility] Comment on above: Performed By: #### C MP #### [facility] [address] [address] [address] Alexei Gonzales Anion gap [Moles/Vol] 11.2 mmol/L Normal [facility] Comment on above: Performed By: #### C MP #### [facility] [address] [address] [address] Alexei Gonzales AST [Catalytic activity/Vol] 44 U/L Critically high 15-37 [facility] Comment on above: Performed By: #### C MP #### [facility] [address] [address] [address] Alexei Gonzales Bilirubin [Mass/Vol] 0.3 mg/dL Normal 0.2-1.0 [facility] Comment on above: Performed By: #### C MP #### [facility] [address] [address] [address] Alexei Gonzales Calcium [Mass/Vol] 8.9 mg/dL Normal 8.5-10.1 [facility] Comment on above: Performed By: #### C MP #### [facility] [address] [address] [address] Alexei Gonzales Chloride [Moles/Vol] 100 mmol/L Normal 98-107 [facility] Comment on above: Performed By: #### C MP #### [facility] [address] [place] [address] Dr. Alexei Gonzales CO2 [Moles/Vol] 26.4 mmol/L Normal 21.0-32.0 [facility] Comment on above: Performed By: #### C MP #### [facility] [address] [address] [address] Alexei Gonzales Creatinine [Mass/Vol] 0.98 mg/dL Normal 0.55-1.02 [facility] Comment on above: Performed By: #### C MP #### [facility] [address] [address] [address] Alexei Gonzales EGFR-AF SYRIAN >60 Normal >=60 [facility] Comment on above: Performed By: #### C MP #### [facility] [address] [address] [address] Alexei Gonzales EGFR-NON AF SYRIAN >60 Normal >=60 [facility] Comment on above: Performed By: #### C MP #### [facility] [address] [address] [address] Alexei Gonzales Globulin (S) [Mass/Vol] 4.3 g/dL Normal [facility] Comment on above: Performed By: #### C MP #### [facility] [address] [address] [address] Alexei Gonzales Glucose [Mass/Vol] 125 mg/dL Critically high 74-[address] [facility] Comment on above: Performed By: #### C MP #### [facility] [address] [address] [address] Alexei Gonzales Potassium [Moles/Vol] 3.6 mmol/L Normal 3.5-5.1 [facility] Comment on above: Performed By: #### C MP #### [facility] [address] [address] [address] Alexei Gonzales Protein [Mass/Vol] 7.9 g/dL Normal 6.4-8.2 [facility] Comment on above: Performed By: #### C MP #### [facility] [address] [address] [address] Alexei Gonzales Sodium [Moles/Vol] 134 mmol/L Critically low 136-145 [facility] Comment on above: Performed By: #### C MP #### [facility] [address] [place], [place] [address] Dr. Alexei Gonzales Urea nitrogen [Mass/Vol] 12.0 mg/dL Normal 7.0-18.0 [facility] Comment on above: Performed By: #### C MP #### [facility] [address] [place], [place] [address] Dr. Alexei Gonzales Urea nitrogen/Creatinin e [Mass ratio] 12.2 mg/mg Normal [facility] Comment on above: Performed By: #### C MP #### [facility] [address] [place], [place] [address] Dr. Alexei Gonzales STREPT SCREENon 05-13-2022 STREP SCREEN A Negative Normal NEGATIVE [facility] Comment on above: Performed By: #### C VDAGS #### [facility] [address] [place], [place] [address] ABD/PELV WO W [...] the patient's hematuria Electronically authenticated by: BORIS ABEL Date: 2022-04-15 11:19 Normal [facility] COVID/FLU/RSV RT-PCRon 04-08 SARS-CoV-2 (COVID-19) RNA CRISTEL+probe Ql (Unsp spec) Positive [facility] Other COVID/FLU/RSV RT-PCR Negative [facility] Other CNPNon 01-25-2022 CNPN Telephone (REITW) -- RAMIN LANIER ([id number]) 1990 F Date Time Provider Department 01/25/22 TAIWO TORRES During your visit today, we recorded the following information about you: Erica Oscar RN 01/25/2022 9:52 AM Signed Routing to Non Jose L ivf Pool to refuse provera refill Just filled 1 weeks ago Erica Oscar RN January 25, 2022 9:52 AM Dilcia Dawn APRN.[facility] 01/25/2022 10:09 AM Signed Patient's request for [...] Encounter Status:Closed by DILCIA DAWN on 01/25/22 [facility] [facility] Telephone (Q) -- RAMIN LANIER ([id number]) 1990 F Date Time Provider Department 01/18/22 [...] Date: 01/18/2022 (None) Encounter Status:Closed by LUCIANA KLINE on 01/18/22 Normal [facility] XR KUB 1 VIEWon 01-17-2022 XR [...] urinary tract calculi. Electronically authenticated by: NIKOLAS CRISTINA Date: 2022-01-17 13:05 Normal [facility] 25(OH)D3 [facility] 2021 25-hydroxyvitamin D3 [Mass/Vol] 23.4 ng/mL Low 31.0-80.0 [facility] Comment on above: Order Comment: Speci jersey Type: BLOOD SPECIMEN Ordering Facility: [facility] Address: [address] [place] [address] Result Comment: Clas sification of 25 [place] Vitamin D status: Deficiency/Insufficiency: < or = 30 ng/ml. Sufficiency/Optimal Levels: 31-80 ng/mL Toxicity: > 100 ng/mL. Test performed by chemiluminescent immunoassay. Performed By: #### V ZVG2, 1988-07XOCHITL #### [facility] CLIA [id number] [address] [place], [place] [address]K [address] OF [place] CNOVon 12-30-2021 CNOV Office Visit (REISO) -- RAMIN LANIER ([id number]) 1990 F Date Time Provider Department 12/30/21 1:00 PM TORRES, TAIWO M REISO During your visit today, we recorded the following information about you: Blood pressure Weight Height Last Period 116 136.1 kg 1.626 m 06/17/21 Taiwo Torres MD 12/30/2021 1:57 PM Signed Consultation requested by Dr. Chan for an opinion regarding infertility. My final [...] which included preparing to see the patient, [id number] patient care, completing clinical documentation, obtaining and/or reviewing separately obtained history, counseling and educating the patient/family/caregiver, and ordering medications, tests, or procedures. Taiwo Torres MD letter to Dr. Chan Referring Provider: BRIANNA TREJO [[id number]] Allergies As of Date: 12/30/2021 Noted Allergy Reaction STRAWBERRIES 12/30/2021 4 - Hives Date Reviewed: 12/30/2021 Reviewed by: Cinthia Price Ma - Fully Assessed Reason for Visit: New Patient [172] Infertility [285] Primary Visit Diagnosis:Primary amenorrhea [N91.0] Order(s):TSH BLD [SQTSH] Order #: [id number] FUTURE PROLACTIN BLD [SQPROL] Order #: [id number] FUTURE RUBELLA IGG AB [SQRUBQNT] Order #: [id number] FUTURE VARICELLA ZOSTER IGG [SQVZVG] Order #: [id number] FUTURE VITAMIN D 25 HYDROXY [SQVITD] Order #: [id number] FUTURE TYPE + SCREEN [SQTSCR] Order #: [id number] FUTURE FSH BLD [SQFSH] Order #: [id number] FUTURE ESTRADIOL-17B BLD [SQE2] Order #: [id number] FUTURE HGB A1C [DLZQL8I] Order #: [id number] FUTURE Prescriptions as of 12/30/2021 - PNV no.95/ferrous fum/folic ac ( ORAL) Take by mouth. Problem List As Of Date: 12/30/2021 (None) Encounter Status:Closed by TAIWO TORRES on 12/30/21 Normal [facility] Estradiol SerPl-mCncon 12-30 E2 [Mass/Vol] 60 pg/mL Normal [facility] Comment on above: Order Comment: Speci men Type: BLOOD SPECIMEN Ordering Facility: [facility] Address: [address] [place] [address] Result Comment: This test is not suitable [...] 3243 pg/mL Second trimester : 1561 to 46057 pg/mL Third trimester : 8285 to >50345 pg/mL Post-menopausal Estradiol reference range: < 41 pg/mL Reference: 1. Estradiol - E2 (Estradiol III) [package insert V 3.0 Divehi]. [facility], [place], [place], October 2015. Performed By: #### 3 016-3, 08174-4, 2243-4, 2842-3 #### [facility] CLIA [id number] [address] [place], [place] [address]K [address] [place] FSH SerPl-aCncon 12-30-2021 Follitropin Qn 6.4 m[IU]/mL Normal See comment [facility] Comment on above: Order Comment: Speci men Type: BLOOD SPECIMEN Ordering Facility: [facility] Address: [address] [place] [address] Result Comment: Refe rence range: Follicular: 3.5-12.5 mIU/mL Midcycle: 4.7-21.5 mIU/mL Luteal: 1.7-7.7 mIU/mL Post Lanny: 25.8-134.8 mIU/mL Performed By: #### 3 016-3, 62751-8, 2243-4, 2842-3 #### [facility] CLIA [id number] [address] [place] [address] HbA1c (Bld)on 12-30-2021 Average glucose Estimated from glycated hemoglobin (Bld) [Mass/Vol] 120 mg/dL Normal [facility] Comment on above: Order Comment: Speci men Type: BLOOD SPECIMEN Ordering Facility: [facility] Address: [address] [place] [address] Result Comment: eAG: (Estimated average glucose) is a calculated value from HgbA1c and is lead customer service representative of the average blood glucose level in the last 2-3 month period. Performed By: #### 5 5454-3 #### [facility] CLIA [id number] [address] [place] [address] STATES [facility] HbA1c (Bld) [Mass fraction] 5.8 % High 4.3-5.6 [facility] Comment on above: Order Comment: Longi jersey Type: BLOOD SPECIMEN Ordering Facility: [facility] Address: [address] [place] [address] Result Comment: Amer [place] Diabetes Association guidelines indicate that patients with HgbA1c in the range 5.7-6.4% are at increased risk for development of diabetes, and intervention by lifestyle modification may be beneficial. HgbA1c greater or equal to 6.5% is considered diagnostic of diabetes. Performed By: #### 5 5454-3 #### [facility] CLIA [id number] [address] [place] [address] [place] Prolactin SerPl-mCncon 12-30 Prolactin [Mass/Vol] 10.3 ng/mL Normal 4.5-26.8 [facility] Comment on above: Order Comment: Rayne bansal Type: BLOOD SPECIMEN Ordering Facility: [facility] Address: [address] [place] [address] Result Comment: Prol actin test is performed using the [facility] Electrochemiluminescence Immunoassay method. Results obtained with different methods or kits cannot be used interchangeably. Performed By: #### 3 016-3, 30399-0, 2243-4, 2842-3 #### [facility] CLIA [id number] [address] [place] [address] OF [place] RUBELLA IGG ABon 12-30-2021 RUBELLA IGG AB, QUAL Positive Normal Positive [facility] Comment on above: Order Comment: Rayne bansal Type: BLOOD SPECIMEN Ordering Facility: [facility] Address: [address] [place] [address] Result Comment: The result suggests recent or past exposure to Rubella virus or history of Rubella vaccination. Positive result may also be seen due to presence of passively-transferred antibodies. Please correlate with patient's history. Performed By: #### V ZVG2, 1989-, RUBIGG #### [facility] CLIA [id number] [address] [place] [address] [place] TSH SerPl-aCncon 12-30-2021 TSH Qn 2.730 m[IU]/L Normal 0.270-4.200 [facility] Comment on above: Order Comment: Rayne bansal Type: BLOOD SPECIMEN Ordering Facility: [facility] Address: [address] [place] [address] Result Comment: If t he patient is , TSH reference range varies by gestational period: First Trimester (weeks 9-12): 0.180-2.990 mIU/L Second Trimester: 0.110-3.980 mIU/L Third Trimester: 0.480-4.710 mIU/L Soham Joaquin et al. A Practical Approach for the Verifications and Determination of Site- and Trimester-Specific Reference Intervals for Thyroid Function tests in . Thyroid, 2019:29:3:412-420. Tavares E, et al. 2017 Guidelines of the [place] Thyroid Association for the Diagnosis and Management of Thyroid Disease during and the . Thyroid, 2017:27:3:315-389. Performed By: #### 3 016-3, 28236-2, 2243-4, 2842-3 #### [facility] CLIA [id number] [address] [place] [address] OF [place] TYPE + SCREENon 12-30-2021 HISTORICAL AB SCR STATUS Negative Normal [facility] Comment on above: Order Comment: Speci men Type: BLOOD SPECIMENOrdering Facility: [facility] Address: [address] [place] [address] Performed By: #### T SCR ####[facility] [id number] [address] [place] TYPE AND SCREEN EXPIRATION 01/02/2022 23:59 Normal [facility] Comment on above: Order Comment: Speci [place] Type: BLOOD SPECIMENOrdering Facility: [facility] Address: [address] [place] [address] Performed By: #### T SCR ####[facility] [id number] [address] [place] VARICELLA ZOSTER IGGon 12-30 VARICELLA ZOSTER IGG, QUAL Positive Normal Positive [facility] Comment on above: Order Comment: Speci men Type: BLOOD SPECIMEN Ordering Facility: [facility] Address: [address] [place] [address] Result Comment: The result suggests recent or past exposure to Varicella-Zoster virus or chickenpox vaccination or zoster vaccination. Positive result may also be seen due to presence of passively-transferred antibodies. Please correlate with patient's history. Performed By: #### V ZVG2, 1990-3, RUBIGG #### [facility] CLIA [id number] [place] CULTURE URINEon 12-21-2021 CULTURE URINE Culture Observations : LIGHT GROWTH OF MIXED GENITAL ANTONIO. NO POTENTIAL PATHOGENS SEEN. Normal [facility] Comment on above: Performed By: #### C VDAGS #### [facility] [address] [place] [address] Dr. Alexei Gonzales UA RANDOM W/MICROSCOPICon BACTERIA TRACE Abnormal NONE SEEN [facility] Comment on above: Performed By: #### C BC #### [facility] [address] [place] [address] Dr. Alexei Gonzales Bilirubin Ql (U) Negative Normal NEGATIVE [facility] Comment on above: Performed By: #### C BC #### [facility] [address] [place] [address] Dr. Alexei Gonzales CAST NONE SEEN Normal NONE SEEN [facility] Comment on above: Performed By: #### C BC #### [facility] [address] [place] [address] Dr. Alexei Gonzales Clarity (U) CLEAR Normal CLEAR [facility] Comment on above: Performed By: #### C BC #### [facility] [address] [place] [address] Dr. Alexei Gonzales Color (U) YELLOW Normal YELLOW [facility] Comment on above: Performed By: #### C BC #### [facility] [address] [place] [address] Dr. Alexei Gonzales Crystals LM Nom (Urine sed) NONE SEEN Normal NONE SEEN [facility] Comment on above: Performed By: #### C BC #### [facility] [address] [place] [address] Dr. Alexei Gonzales Epithelial cells LM Ql (Urine sed) FEW Abnormal NONE SEEN /RARE [facility] Comment on above: Performed By: #### C BC #### [facility] [address] [place] [address] Dr. Alexei Gonzales Glucose Ql (U) Negative Normal NEGATIVE [facility] Comment on above: Performed By: #### C BC #### [facility] [address] [place] [address] Dr. Alexei Gonzales Hemoglobin Ql (U) TRACE-LYSED Abnormal NEGATIVE [facility] Comment on above: Performed By: #### C BC #### [facility] [address] [place] [address] Dr. Alexei Gonzales Ketones Ql (U) Negative Normal NEGATIVE [facility] Comment on above: Performed By: #### C BC #### [facility] [address] [place] [address] Dr. Alexei Gonzales LEUKOCYTES Negative Normal NEGATIVE [facility] Comment on above: Performed By: #### C BC #### [facility] [address] [place] [address] Dr. Alexei Gonzales MUCOUS NONE SEEN Normal NONE SEEN [facility] Comment on above: Performed By: #### C BC #### [facility] [address] [place] [address] Dr. Alexei Gonzales Nitrite Ql (U) Negative Normal NEGATIVE [facility] Comment on above: Performed By: #### C BC #### [facility] [address] [place] [address] Dr. Alexei Gonzales pH (U) 6.0 [pH] Normal 5-9 [facility] Comment on above: Performed By: #### C BC #### [facility] [address] [place] [address] Dr. Alexei Gonzales RBC 2-5 Abnormal 0-2 [facility] Comment on above: Performed By: #### C BC #### [facility] [address] [place] [address] Dr. Alexei Gonzales SPEC GRAVITY >=1.030 Abnormal 1.005-<=1.0 25 [facility] Comment on above: Performed By: #### C BC #### [facility] [address] [place] [address] Dr. Alexei Gonzales UA PROTEIN Negative Normal NEGATIVE/ TRACE [facility] Comment on above: Performed By: #### C BC #### [facility] [address] [place] [address] Dr. Alexei Gonzales Urobilinogen Qn (U) 0.2 {Albin'U}/dL Normal 0.2 - 1.0 [facility] Comment on above: Performed By: #### C BC #### [facility] [address] [place] [address] Dr. Alexei Gonzales WBC 0-2 Abnormal NONE SEEN [facility] Comment on above: Performed By: #### C BC #### [facility] [address] [place] [address] Dr. Alexei Gonzales CBC AUTO DIFFon 11-30-2021 BASO # 0.1 103/ul Normal 0.0-0.1 [facility] Comment on above: Performed By: #### C VDAGS #### [facility] [address] [place] [address] Dr. Alexei Gonzales Basophils/100 WBC (Bld) 0.4 % Normal 0.2-2.0 [facility] Comment on above: Performed By: #### C VDAGS #### [facility] [address] [place] [address] Dr. Alexei Gonzales EO # 0.2 103/ul Normal 0.0-0.7 [facility] Comment on above: Performed By: #### C VDAGS #### [facility] [address] [place] [address] Dr. Alexei Gonzales Eosinophils/100 WBC (Bld) 1.9 % Normal 0.9-7.0 [facility] Comment on above: Performed By: #### C VDAGS #### [facility] [address] [place] [address] Dr. Alexei Gonzales Erythrocyte distribution width (RBC) [Ratio] 13.3 % Normal 11.0-15.0 [facility] Comment on above: Performed By: #### C VDAGS #### [facility] [address] [place] [address] Dr. Alexei Gonzales Hematocrit (Bld) [Volume fraction] 40.8 % Normal 36.0-48.0 [facility] Comment on above: Performed By: #### C VDAGS #### [facility] [address] [place] [address] Dr. Alexei Gonzales Hemoglobin (Bld) [Mass/Vol] 13.0 g/dL Normal 12.0-16.0 [facility] Comment on above: Performed By: #### C VDAGS #### [facility] [address] [place] [address] Dr. Alexei Gonzales IG # 0.05 10e3/ul Critically high 0.00-0.03 [facility] Comment on above: Performed By: #### C VDAGS #### [facility] [address] [place] [address] Dr. Alexei Gonzales IG % 0.4 % Normal 0.0-0.5 [facility] Comment on above: Performed By: #### C VDAGS #### [facility] [address] [place] [address] Dr. Alexei Gonzales LYMPH # 3.4 103/ul Normal 1.2-3.8 [facility] Comment on above: Performed By: #### C VDAGS #### [facility] [address] [place] [address] Dr. Alexei Gonzales Lymphocytes/100 WBC (Bld) 29.1 % Normal 20.5-60.0 [facility] Comment on above: Performed By: #### C VDAGS #### [facility] [address] [place] [address] Dr. Alexei Gonzales MANUAL DIFF REQ NO Normal [facility] Comment on above: Performed By: #### C VDAGS #### [facility] [address] [place] [address] Dr. Alexei Gonzales MCH (RBC) [Entitic mass] 27.3 pg Normal 26.7-34.0 [facility] Comment on above: Performed By: #### C VDAGS #### [facility] [address] [place] [address] Dr. Alexei Gonzales MCHC (RBC) [Mass/Vol] 31.9 g/dL Normal 29.9-35.2 [facility] Comment on above: Performed By: #### C VDAGS #### [facility] [address] [place] [address] Dr. Alexei Gonzales MCV (RBC) [Entitic vol] 85.5 fL Normal 81.0-99.0 [facility] Comment on above: Performed By: #### C VDAGS #### [facility] [address] [place] [address] Dr. Alexei Gonzales MONO # 0.7 103/ul Normal 0.3-0.8 [facility] Comment on above: Performed By: #### C VDAGS #### [facility] [address] [place] [address] Dr. Alexei Gonzales Monocytes/100 WBC (Bld) 5.9 % Normal 1.7-12.0 [facility] Comment on above: Performed By: #### C VDAGS #### [facility] [address] [place] [address] Dr. Alexei Gonzales NEUT # 7.4 103/ul Critically high 1.4-6.5 [facility] Comment on above: Performed By: #### C VDAGS #### [facility] [address] [place] [address] Dr. Alexei Gonzales Neutrophils/100 WBC (Bld) 62.3 % Normal 43.0-75.0 [facility] Comment on above: Performed By: #### C VDAGS #### [facility] [address] [place] [address] Dr. Alexei Gonzalse Platelet mean volume (Bld) [Entitic vol] 10.4 fL Normal 9.5-13.5 [facility] Comment on above: Performed By: #### C VDAGS #### [facility] [address] [place] [address] Dr. Alexei Gonzales PLT 319 103/ul Normal 150-450 [facility] Comment on above: Performed By: #### C VDAGS #### [facility] [address] [place] [address] Dr. Alexei Gonzales RBC 4.77 106/ul Normal 4.20-5.40 [facility] Comment on above: Performed By: #### C VDAGS #### [facility] [address] [place] [address] Dr. Alexei Gonzales WBC 11.8 103/ul Critically high 4.0-11.[address] [facility] Comment on above: Performed By: #### C VDAGS #### [facility] [address] [place] [address] Dr. Alexei Gonzales FREE T4on 11-30-2021 Free T4 [Mass/Vol] 1.20 ng/dL Normal 0.76-1.46 [facility] Comment on above: Performed By: #### F T4 #### [facility] [address] [place] [address] Dr. Alexei Gonzales GLYCOHEMOGLOBIN A1Con 2021 ADA RECOMMENDATION SEE BELOW Normal [facility] Comment on above: Result Comment: ADA RECOMMENDED LIMIT 4.0 - 6.0 ADA THERAPEUTIC TARGET < 7.0 ACTION SUGGESTED > 7.0 Performed By: #### A 1C #### [facility] [address] [place] [address] Dr. Alexei Gonzales Glucose [Mass/Vol] 126 mg/dL Normal [facility] Comment on above: Performed By: #### A 1C #### [facility] [address] [place] [address] Dr. Alexei Gonzales HbA1c (Bld) [Mass fraction] 6.0 % Normal 4.5-6.2 [facility] Comment on above: Performed By: #### A 1C #### [facility] [address] [place] [address] Dr. Alexei Gonzales LIPID PROFILEon 11-30-2021 CHOL-HDL RATIO NORM SEE BELOW Normal [facility] Comment on above: Result Comment: 3.3 - 4.4 LOW RISK 4.4 - 7.1 AVERAGE RISK 7.1 - 11.0 MODERATE RISK >11.0 HIGH RISK Performed By: #### L IPID, CMP, TSH #### [facility] [address] [place] [address] Dr. Alexei Gonzales Cholesterol [Mass/Vol] 180 mg/dL Normal <=200 [facility] Comment on above: Performed By: #### L IPID, CMP, TSH #### [facility] [address] [place] [address] Dr. Alexei Gonzales Cholesterol in HDL [Mass/Vol] 40 mg/dL Normal 40-60 [facility] Comment on above: Performed By: #### L IPID, CMP, TSH #### [facility] [address] [address] [address] Alexei Gonzales Cholesterol in LDL [Mass/Vol] 114.4 mg/dL Normal [facility] Comment on above: Performed By: #### L IPID, CMP, TSH #### [facility] [address] [address] [address] Alexei Gonzales Cholesterol.total/ Cholesterol in HDL [Mass ratio] 4.5 {ratio} Normal [facility] Comment on above: Performed By: #### L IPID, CMP, TSH #### [facility] [address] [place] [address] Dr. Alexei Gonzales HDL NORMAL > or = 60 mg/dl - LO W CARDIOVASCULAR RISK <40 mg/dl - HIGH CARDIOVASCULAR RISK Normal [facility] Comment on above: Performed By: #### L IPID, CMP, TSH #### [facility] [address] [place] [address] Dr. Alexei Gonzales LDL CALC NORMAL SEE BELOW Normal [facility] Comment on above: Result Comment: <100 mg/dl OPTIMAL 100 - 129 mg/dl NEAR OR ABOVE OPTIMAL 130 - 159 mg/dl BORDERLINE HIGH 160 - 189 mg/dl HIGH >190 mg/dl VERY HIGH Performed By: #### L IPID, CMP, TSH #### [facility] [address] [address] [address] Alexei Gonzales Triglyceride [Mass/Vol] 128 mg/dL Normal <=150 [facility] Comment on above: Performed By: #### L IPID, CMP, TSH #### [facility] [address] [place] [address] Dr. Alexei Gonzales VLDL CALC 25.6 mg/dL Normal [facility] Comment on above: Performed By: #### L IPID, CMP, TSH #### [facility] [address] [address] [address] Alexei Gonzales PROF 14(COMP METB)on 022 Albumin [Mass/Vol] 3.4 g/dL Normal 3.4-5.0 [facility] Comment on above: Performed By: #### L IPID, CMP, TSH #### [facility] [address] [address] [address] Alexei Gonzales Albumin/Globulin [Mass ratio] 0.9 {ratio} Normal [facility] Comment on above: Performed By: #### L IPID, CMP, TSH #### [facility] [address] [address] [address] Alexei Gonzales ALP [Catalytic activity/Vol] 81 U/L Normal 46-116 [facility] Comment on above: Performed By: #### L IPID, CMP, TSH #### [facility] [address] [place] [address] Dr. Alexei Gonzales ALT [Catalytic activity/Vol] 41 U/L Normal 14-59 [facility] Comment on above: Performed By: #### L IPID, CMP, TSH #### [facility] [address] [place] [address] Dr. Alexei Gonzales Anion gap [Moles/Vol] 10.6 mmol/L Normal [facility] Comment on above: Performed By: #### L IPID, CMP, TSH #### [facility] [address] [place] [address] Dr. Alexei Gonzales AST [Catalytic activity/Vol] 22 U/L Normal 15-37 [facility] Comment on above: Performed By: #### L IPID, CMP, TSH #### [facility] [address] [place] [address] Dr. Alexei Gonzales Bilirubin [Mass/Vol] 0.4 mg/dL Normal 0.2-1.0 [facility] Comment on above: Performed By: #### L IPID, CMP, TSH #### [facility] [address] [place] [address] Dr. Alexei Gonzales Calcium [Mass/Vol] 9.1 mg/dL Normal 8.5-10.1 [facility] Comment on above: Performed By: #### L IPID, CMP, TSH #### [facility] [address] [address] [address] Alexei Gonzales Chloride [Moles/Vol] 105 mmol/L Normal 98-107 [facility] Comment on above: Performed By: #### L IPID, CMP, TSH #### [facility] [address] [address] [address] Alexei Gonzales CO2 [Moles/Vol] 25.6 mmol/L Normal 21.0-32.0 [facility] Comment on above: Performed By: #### L IPID, CMP, TSH #### [facility] [address] [address] [address] Alexei Gonzales Creatinine [Mass/Vol] 0.84 mg/dL Normal 0.55-1.02 [facility] Comment on above: Performed By: #### L IPID, CMP, TSH #### [facility] [address] [place] [address] Dr. Alexei Gonzales EGFR-AF SYRIAN >60 Normal >=60 [facility] Comment on above: Performed By: #### L IPID, CMP, TSH #### [facility] [address] [place] [address] Dr. Alexei Gonzales EGFR-NON AF SYRIAN >60 Normal >=60 [facility] Comment on above: Performed By: #### L IPID, CMP, TSH #### [facility] [address] [place] [address] Dr. Alexei Gonzales Globulin (S) [Mass/Vol] 4.0 g/dL Normal [facility] Comment on above: Performed By: #### L IPID, CMP, TSH #### [facility] [address] [place] [address] Dr. Alexei Gonzales Glucose [Mass/Vol] 113 mg/dL Critically high 74-[address] [facility] Comment on above: Performed By: #### L IPID, CMP, TSH #### [facility] [address] [place] [address] Dr. Alexei Gonzales Potassium [Moles/Vol] 4.2 mmol/L Normal 3.5-5.1 [facility] Comment on above: Performed By: #### L IPID, CMP, TSH #### [facility] [address] [place] [address] Dr. Alexei Gonzales Protein [Mass/Vol] 7.4 g/dL Normal 6.4-8.2 [facility] Comment on above: Performed By: #### L IPID, CMP, TSH #### [facility] [address] [place] [address] Dr. Alexei Gonzales Sodium [Moles/Vol] 137 mmol/L Normal 136-145 [facility] Comment on above: Performed By: #### L IPID, CMP, TSH #### [facility] [address] [place] [address] Dr. Alexei Gonzales Urea nitrogen [Mass/Vol] 14.0 mg/dL Normal 7.0-18.0 [facility] Comment on above: Performed By: #### L IPID, CMP, TSH #### [facility] [address] [place] [address] Dr. Alexei Gonzales Urea nitrogen/Creatinin e [Mass ratio] 16.7 mg/mg Normal [facility] Comment on above: Performed By: #### L IPID, CMP, TSH #### [facility] [address] [place] [address] Dr. Alexei Gonzales TSHon 11-30-2021 TSH 1.150 uIU/mL Normal 0.358-3.740 [facility] Comment on above: Performed By: #### L IPID, CMP, TSH #### [facility] [address] [place] [address] Dr. Alexei Gonzales UA RANDOM W/MICROSCOPICon BACTERIA SMALL Abnormal NONE SEEN [facility] Comment on above: Performed By: #### C BC #### [facility] [address] [place] [address] Dr. Alexei Gonzales Bilirubin Ql (U) Negative Normal NEGATIVE [facility] Comment on above: Performed By: #### C BC #### [facility] [address] [place] [address] Dr. Alexei Gonzales CAST NONE SEEN Normal NONE SEEN [facility] Comment on above: Performed By: #### C BC #### [facility] [address] [place] [address] Dr. Alexei Gonzales Clarity (U) CLEAR Normal CLEAR [facility] Comment on above: Performed By: #### C BC #### [facility] [address] [place] [address] Dr. Alexei Gonzales Color (U) YELLOW Normal YELLOW [facility] Comment on above: Performed By: #### C BC #### [facility] [address] [place] [address] Dr. Alexei Gonzales Crystals LM Nom (Urine sed) NONE SEEN Normal NONE SEEN [facility] Comment on above: Performed By: #### C BC #### [facility] [address] [place] [address] Dr. Alexei Gonzales Epithelial cells LM Ql (Urine sed) MODERATE Abnormal NONE SEEN /RARE [facility] Comment on above: Performed By: #### C BC #### [facility] [address] [place] [address] Dr. Alexei Gonzales Glucose Ql (U) Negative Normal NEGATIVE [facility] Comment on above: Performed By: #### C BC #### [facility] [address] [place] [address] Dr. Alexei Gonzales Hemoglobin Ql (U) TRACE-INTACT Abnormal NEGATIVE [facility] Comment on above: Performed By: #### C BC #### [facility] [address] [place] [address] Dr. Alexei Gonzales Ketones Ql (U) TRACE Abnormal NEGATIVE [facility] Comment on above: Performed By: #### C BC #### [facility] [address] [place] [address] Dr. Alexei Gonzales LEUKOCYTES Negative Normal NEGATIVE [facility] Comment on above: Performed By: #### C BC #### [facility] [address] [place] [address] Dr. Alexei Gonzales MUCOUS TRACE Abnormal NONE SEEN [facility] Comment on above: Performed By: #### C BC #### [facility] [address] [place] [address] Dr. Alexei Gonzales Nitrite Ql (U) Negative Normal NEGATIVE [facility] Comment on above: Performed By: #### C BC #### [facility] [address] [place] [address] Dr. Alexei Gonzales pH (U) 5.5 [pH] Normal 5-9 [facility] Comment on above: Performed By: #### C BC #### [facility] [address] [place] [address] Dr. Alexei Gonzales RBC 2-5 Abnormal 0-2 [facility] Comment on above: Performed By: #### C BC #### [facility] [address] [place] [address] Dr. Alexei Gonzales SPEC GRAVITY >=1.030 Abnormal 1.005-<=1.0 25 [facility] Comment on above: Performed By: #### C BC #### [facility] [address] [place] [address] Dr. Alexei Gonzales UA PROTEIN Negative Normal NEGATIVE/ TRACE [facility] Comment on above: Performed By: #### C BC #### [facility] [address] [place] [address] Dr. Alexei Gonzales Urobilinogen Qn (U) 0.2 {Albin'U}/dL Normal 0.2 - 1.0 [facility] Comment on above: Performed By: #### C BC #### [facility] [address] [place] [address] Dr. Alexei Gonzales WBC 2-5 Abnormal NONE SEEN [facility] Comment on above: Performed By: #### C BC #### [facility] [address] [place] [address] Dr. Alexei Gonzales CBC AUTO DIFFon 11-22-2021 BASO # 0.1 103/ul Normal 0.0-0.1 [facility] Comment on above: Performed By: #### C BC #### [facility] [address] [place] [address] Dr. Alexei Gonzales Basophils/100 WBC (Bld) 0.4 % Normal 0.2-2.0 [facility] Comment on above: Performed By: #### C BC #### [facility] [address] [place] [address] Dr. Alexei Gonzales EO # 0.2 103/ul Normal 0.0-0.7 [facility] Comment on above: Performed By: #### C BC #### [facility] [address] [place] [address] Dr. Alexei Gonzales Eosinophils/100 WBC (Bld) 1.4 % Normal 0.9-7.0 [facility] Comment on above: Performed By: #### C BC #### [facility] [address] [place] [address] Dr. Alexei Gonzales Erythrocyte distribution width (RBC) [Ratio] 13.2 % Normal 11.0-15.0 [facility] Comment on above: Performed By: #### C BC #### [facility] [address] [place] [address] Dr. Alexei Gonzales Hematocrit (Bld) [Volume fraction] 38.8 % Normal 36.0-48.0 [facility] Comment on above: Performed By: #### C BC #### [facility] [address] [place] [address] Dr. Alexei Gonzales Hemoglobin (Bld) [Mass/Vol] 12.6 g/dL Normal 12.0-16.0 [facility] Comment on above: Performed By: #### C BC #### [facility] [address] [place] [address] Dr. Alexei Gonzales IG # 0.04 10e3/ul Critically high 0.00-0.03 [facility] Comment on above: Performed By: #### C BC #### [facility] [address] [place] [address] Dr. Alexei Gonzales IG % 0.3 % Normal 0.0-0.5 [facility] Comment on above: Performed By: #### C BC #### [facility] [address] [place] [address] Dr. Alexei Gonzales LYMPH # 3.4 103/ul Normal 1.2-3.8 [facility] Comment on above: Performed By: #### C BC #### [facility] [address] [place] [address] Dr. Alexei Gonzales Lymphocytes/100 WBC (Bld) 26.9 % Normal 20.5-60.0 [facility] Comment on above: Performed By: #### C BC #### [facility] [address] [place] [address] Dr. Alexei Gonzales MANUAL DIFF REQ NO Normal [facility] Comment on above: Performed By: #### C BC #### [facility] [address] [place] [address] Dr. Alexei Gonzales MCH (RBC) [Entitic mass] 27.3 pg Normal 26.7-34.0 [facility] Comment on above: Performed By: #### C BC #### [facility] [address] [place] [address] Dr. Alexei Gonzales MCHC (RBC) [Mass/Vol] 32.5 g/dL Normal 29.9-35.2 [facility] Comment on above: Performed By: #### C BC #### [facility] [address] [place] [address] Dr. Alexei Gonzales MCV (RBC) [Entitic vol] 84.2 fL Normal 81.0-99.0 [facility] Comment on above: Performed By: #### C BC #### [facility] [address] [place] [address] Dr. Alexei Gonzales MONO # 0.6 103/ul Normal 0.3-0.8 [facility] Comment on above: Performed By: #### C BC #### [facility] [address] [place] [address] Dr. Alexei Gonzales Monocytes/100 WBC (Bld) 5.1 % Normal 1.7-12.0 [facility] Comment on above: Performed By: #### C BC #### [facility] [address] [place] [address] Dr. Alexei Gonzales NEUT # 8.3 103/ul Critically high 1.4-6.5 [facility] Comment on above: Performed By: #### C BC #### [facility] [address] [place] [address] Dr. Alexei Gonzales Neutrophils/100 WBC (Bld) 65.9 % Normal 43.0-75.0 [facility] Comment on above: Performed By: #### C BC #### [facility] [address] [place] [address] Dr. Alexei Gonzales Platelet mean volume (Bld) [Entitic vol] 10.1 fL Normal 9.5-13.5 [facility] Comment on above: Performed By: #### C BC #### [facility] [address] [place] [address] Dr. Alexei Gonzales PLT 373 103/ul Normal 150-450 [facility] Comment on above: Performed By: #### C BC #### [facility] [address] [place] [address] Dr. Alexei Gonzales RBC 4.61 106/ul Normal 4.20-5.40 [facility] Comment on above: Performed By: #### C BC #### [facility] [address] [place] [address] Dr. Alexei Gonzales WBC 12.5 103/ul Critically high 4.0-11.0 [facility] Comment on above: Performed By: #### C BC #### [facility] [address] [place] [address] Dr. Alexei Gonzales PREG HCG QUALon 11-22-2021 , QUAL Negative Normal NEGATIVE [facility] Comment on above: Performed By: #### C BC #### [facility] [address] [place] [address] Dr. Alexei Gonzales PROF 14(COMP METB)on 022 Albumin [Mass/Vol] 3.3 g/dL Critically low 3.4-5.0 [facility] Comment on above: Performed By: #### C BC #### [facility] [address] [place] [address] Dr. Alexei Gonzales Albumin/Globulin [Mass ratio] 0.8 {ratio} Normal [facility] Comment on above: Performed By: #### C BC #### [facility] [address] [place] [address] Dr. Alexei Gonzales ALP [Catalytic activity/Vol] 89 U/L Normal 46-116 [facility] Comment on above: Performed By: #### C BC #### [facility] [address] [place] [address] Dr. Alexei Gonzales ALT [Catalytic activity/Vol] 43 U/L Normal 14-59 [facility] Comment on above: Performed By: #### C BC #### [facility] [address] [place] [address] Dr. Alexei Gonzales Anion gap [Moles/Vol] 13.4 mmol/L Normal [facility] Comment on above: Performed By: #### C BC #### [facility] [address] [place] [address] Dr. Alexei Gonzales AST [Catalytic activity/Vol] 17 U/L Normal 15-37 [facility] Comment on above: Performed By: #### C BC #### [facility] [address] [place] [address] Dr. Alexei Gonzales Bilirubin [Mass/Vol] 0.3 mg/dL Normal 0.2-1.0 [facility] Comment on above: Performed By: #### C BC #### [facility] [address] [place] [address] Dr. Alexei Gonzales Calcium [Mass/Vol] 8.9 mg/dL Normal 8.5-10.1 [facility] Comment on above: Performed By: #### C BC #### [facility] [address] [place] [address] Dr. Alexei Gonzales Chloride [Moles/Vol] 103 mmol/L Normal 98-107 [facility] Comment on above: Performed By: #### C BC #### [facility] [address] [place] [address] Dr. Alexei Gonzales CO2 [Moles/Vol] 26.4 mmol/L Normal 21.0-32.[address] [facility] Comment on above: Performed By: #### C BC #### [facility] [address] [place] [address] Dr. Alexei Gonzales Creatinine [Mass/Vol] 0.91 mg/dL Normal 0.55-1.02 [facility] Comment on above: Performed By: #### C BC #### [facility] [address] [address] [address] Alexei Gonzales EGFR-AF SYRIAN >60 Normal >=60 [facility] Comment on above: Performed By: #### C BC #### [facility] [address] [address] [address] Alexei Gonzales EGFR-NON AF SYRIAN >60 Normal >=60 [facility] Comment on above: Performed By: #### C BC #### [facility] [address] [address] [address] Alexei Gonzales Globulin (S) [Mass/Vol] 4.1 g/dL Normal [facility] Comment on above: Performed By: #### C BC #### [facility] [address] [place] [address] Dr. Alexei Gonzales Glucose [Mass/Vol] 151 mg/dL Critically high 74-106 [facility] Comment on above: Performed By: #### C BC #### [facility] [address] [address] [address] Alexei Gonzales Potassium [Moles/Vol] 3.8 mmol/L Normal 3.5-5.1 [facility] Comment on above: Performed By: #### C BC #### [facility] [address] [place] [address] Dr. Alexei Gonzales Protein [Mass/Vol] 7.4 g/dL Normal 6.4-8.2 [facility] Comment on above: Performed By: #### C BC #### [facility] [address] [address] [address] Alexei Gonzales Sodium [Moles/Vol] 139 mmol/L Normal 136-145 [facility] Comment on above: Performed By: #### C BC #### [facility] [address] [address] [address] Alexei Gonzales Urea nitrogen [Mass/Vol] 12.0 mg/dL Normal 7.0-18.0 [facility] Comment on above: Performed By: #### C BC #### [facility] [address] [address] [address] Alexei Gonzales Urea nitrogen/Creatinin e [Mass ratio] 13.2 mg/mg Normal [facility] Comment on above: Performed By: #### C BC #### [facility] [address] [place], [place] [address] Dr. Alexei Gonzales TROPONIN, HIGH SENSITIVITYon 11-22-2021 HSTROP 5.0 pg/mL Normal 4.0-51.3 [facility] Comment on above: Result Comment: CUT- OFF POINTS HAVE BEEN ESTABLISHED BASED ON THE FOURTH UNIVERSAL DEFINITIONS OF MYOCARDIAL INFARCTION. THE UPPER REFERENCE LIMIT (URL) OF TROPONIN, DEFINED THE 99TH PERCENTILE OF cTnI DISTRIBUTION IN A REFERENCE POPULATION, HAS BEEN CONFIRMED THE DECISION THRESHOLD FOR AK DIAGNOSIS. Performed By: #### C BC #### [facility] [address] [address] [address] Alexei Gonzales XR CHEST 1 Von [...] by: LUDMILA WINKLER Date: 2021-11-21 23:31 Normal [facility] PAP ACOG PANEL 2: 30 to 65on 10-22-2021 . . Normal [facility] Comment on above: Result Comment: Perf ormed at: WB Performed By: #### [id number] #### [facility] [address] [address] [address] Alexei Gonzales Age Gdln ACOG Testing 30-65 Normal [facility] Comment on above: Performed By: #### [id number] #### [facility] [address] [address] [address] Alexei Gonzales DIAGNOSIS: Comment Normal [facility] Comment on above: Result Comment: NEGA TIVE FOR INTRAEPITHELIAL LESION OR MALIGNANCY. Performed at: WB Performed By: #### [id number] #### [facility] [address] [place] [address] Dr. Alexei Gonzales HPV Aptima Negative Normal Negative [facility] Comment on above: Result Comment: This nucleic acid amplification test detects fourteen high-risk HPV types (16,18,31,33,35,39,45,51,52,56,58,59,66,68) without differentiation. Performed at: =G Performed By: #### [id number] #### [facility] [address] [place] [address] Dr. Alexei Gonzales Methodology: Comment Normal [facility] Comment on above: Result Comment: This liquid based ThinPrep(R) pap test was screened with the use of an image guided system. Performed at: WB Performed By: #### [id number] #### [facility] [address] [place] [address] Dr. Alexei Gonzales Note: Comment Normal [facility] Comment [...] Performed at: WB Performed By: #### [id number] #### [facility] [address] [place] [address] Dr. Alexei Gonzales Performed by: Comment Normal [facility] Comment on above: Result Comment: Elis Abel, Player Piano Technician (ASCP) Performed at: WB Performed By: #### [id number] #### [facility] [address] [place] [address] Dr. Alexei Gonzales Specimen adequacy: Comment Normal [facility] Comment on above: Result Comment: Sati sfactory for evaluation. Endocervical and/or squamous metaplastic cells (endocervical component) are present. Performed at: WB Performed By: #### [id number] #### [facility] [address] [place] [address] Dr. Alexei Gonzales Vital Signs Date Time Vital Sign Value Performing Clinician Facility 11-30-2024 12:12-0400 Body mass index (BMI) [Ratio] 47.89 kg/m2 Nico Pandey DO Work Phone: [facility] 11-30-2024 12:12-0400 Body temperature 97.59 [degF] Nico Pandey DO Work Phone: [facility] 11-30-2024 12:12-0400 Body weight 126.55 kg Nico Pandey DO Work Phone: [facility] 11-30-2024 12:12-0400 Diastolic blood pressure 74 mm[Hg] Nico Pandey DO Work Phone: [facility] 11-30-2024 12:12-0400 Heart rate 97 /min Nico Pandey DO Work Phone: [facility] 11-30-2024 12:12-0400 SaO2% (BldA) [Mass fraction] 93 % Nico Pandey DO Work Phone: [facility] 11-30-2024 12:12-0400 Systolic blood pressure 128 mm[Hg] Nico Pandey DO Work Phone: [facility] 11-13-2024 15:56-0400 Diastolic blood pressure 84 mm[Hg] Whit Ca [employer]CIAL [employer]STRUCTION SUPERINTENDENT Work Phone: [facility] 11-13-2024 15:56-0400 Systolic blood pressure 136 mm[Hg] Whit Roby [employer]ERCIAL [employer]STRUCTION SUPERINTENDENT Work Phone: [facility] 11-13-2024 15:22-0400 Body mass index (BMI) [Ratio] 47.96 kg/m2 Whit Desiraez [employer]CIAL [employer]STRUCTION SUPERINTENDENT Work Phone: [facility] 11-13-2024 15:22-0400 Body temperature 98.49 [degF] Whit Roby COMMERCIAL CONSTRUCTION SUPERINTENDENT Work Phone: [facility] 11-13-2024 15:22-0400 Body weight 126.73 kg Whit Roby [employer]ERCIAL CONSTRUCTION SUPERINTENDENT Work Phone: [facility] 11-13-2024 15:22-0400 Heart rate 98 /min Whit Hodgelamar COMMERCIAL CONSTRUCTION SUPERINTENDENT Work Phone: [facility] 11-13-2024 15:22-0400 Respiratory rate 18 /min Whit Merrillz [employer]ERCIAL CONSTRUCTION SUPERINTENDENT Work Phone: [facility] 11-13-2024 15:22-0400 SaO2% (BldA) [Mass fraction] 98 % Whit Hodgelamar COMMERCIAL CONSTRUCTION SUPERINTENDENT Work Phone: [facility] 08-19-2024 16:09-0400 Body height 162.6 cm Cheyenne Harrismor [employer]ERCIAL [employer]STRUCTION SUPERINTENDENT Work Phone: [facility] 08-19-2024 16:09-0400 Body mass index (BMI) [Ratio] 48.06 kg/m2 Cheyenne Gillmor [employer]ERCIAL CONSTRUCTION SUPERINTENDENT Work Phone: [facility] 08-19-2024 16:09-0400 Body weight 127.01 kg Cheyenne Harrismor COMMERCIAL CONSTRUCTION SUPERINTENDENT Work Phone: [facility] 08-19-2024 16:09-0400 Diastolic blood pressure 88 mm[Hg] Cheyenne Harrismor COMMERCIAL CONSTRUCTION SUPERINTENDENT Work Phone: [facility] 08-19-2024 16:09-0400 Heart rate 65 /min Cheyenne Harrismor COMMERCIAL CONSTRUCTION SUPERINTENDENT Work Phone: [facility] 08-19-2024 16:09-0400 Systolic blood pressure 157 mm[Hg] Cheyenne Kimberlymor COMMERCIAL CONSTRUCTION SUPERINTENDENT Work Phone: [facility] 08-12-2024 15:35-0400 Body mass index (BMI) [Ratio] 49.13 kg/m2 Whit Hodgedelvisz COMMERCIAL CONSTRUCTION SUPERINTENDENT Work Phone: [facility] 08-12-2024 15:35-0400 Body temperature 98.49 [degF] Whit Roby COMMERCIAL CONSTRUCTION SUPERINTENDENT Work Phone: [facility] 08-12-2024 15:35-0400 Body weight 129.82 kg Whit Moralesarikholz COMMERCIAL CONSTRUCTION SUPERINTENDENT Work Phone: [facility] 08-12-2024 15:35-0400 Diastolic blood pressure 84 mm[Hg] Whit Ca COMMERCIAL CONSTRUCTION SUPERINTENDENT Work Phone: [facility] 08-12-2024 15:35-0400 Heart rate 75 /min Whit Ca COMMERCIAL CONSTRUCTION SUPERINTENDENT Work Phone: [facility] 08-12-2024 15:35-0400 Respiratory rate 18 /min Whit Ca COMMERCIAL CONSTRUCTION SUPERINTENDENT Work Phone: [facility] 08-12-2024 15:35-0400 SaO2% (BldA) [Mass fraction] 97 % Whit Ca COMMERCIAL CONSTRUCTION SUPERINTENDENT Work Phone: [facility] 08-12-2024 15:35-0400 Systolic blood pressure 120 mm[Hg] Whit Hodgelamar COMMERCIAL CONSTRUCTION SUPERINTENDENT Work Phone: [facility] 06-17-2024 15:15-0500 Body mass index (BMI) [Ratio] 47.74 kg/m2 Chuy Johny DO Work Phone: [facility] 06-17-2024 15:15-0500 Body weight 126.15 kg Chuy Johny DO Work Phone: [facility] 06-17-2024 15:15-0500 Diastolic blood pressure 84 mm[Hg] Chuy Johny DO Work Phone: [facility] 06-17-2024 15:15-0500 Systolic blood pressure 132 mm[Hg] Chuy Johny DO Work Phone: [facility] 06-10-2024 15:36-0500 Body height 162.6 cm Whit Ca COMMERCIAL CONSTRUCTION SUPERINTENDENT Work Phone: [facility] 06-10-2024 15:36-0500 Body mass index (BMI) [Ratio] 48.3 kg/m2 Whit Moralescarolin COMMERCIAL [employer]STRUCTION SUPERINTENDENT Work Phone: [facility] 06-10-2024 15:36-0500 Body temperature 97.81 [degF] Whit Moralescarolin COMMERCIAL CONSTRUCTION SUPERINTENDENT Work Phone: [facility] 06-10-2024 15:36-0500 Body weight 127.64 kg Whit Ca COMMERCIAL CONSTRUCTION SUPERINTENDENT Work Phone: [facility] 06-10-2024 15:36-0500 Diastolic blood pressure 84 mm[Hg] Whit Ca COMMERCIAL CONSTRUCTION SUPERINTENDENT Work Phone: [facility] 06-10-2024 15:36-0500 Heart rate 78 /min Whit Ca [employer]ERCIAL CONSTRUCTION SUPERINTENDENT Work Phone: [facility] 06-10-2024 15:36-0500 Respiratory rate 19 /min Whit Ca COMMERCIAL CONSTRUCTION SUPERINTENDENT Work Phone: [facility] 06-10-2024 15:36-0500 SaO2% (BldA) [Mass fraction] 98 % Whit Ca [employer]ERCIAL CONSTRUCTION SUPERINTENDENT Work Phone: [facility] 06-10-2024 15:36-0500 Systolic blood pressure 130 mm[Hg] Whit Ca COMMERCIAL CONSTRUCTION SUPERINTENDENT Work Phone: [facility] 05-29-2024 14:09-0500 Body mass index (BMI) [Ratio] 49.09 kg/m2 Chuy Johny DO Work Phone: [facility] 05-29-2024 14:09-0500 Body weight 129.73 kg Chuy Johny DO Work Phone: [facility] 05-29-2024 14:09-0500 Diastolic blood pressure 82 mm[Hg] Chuy Johny DO Work Phone: [facility] 05-29-2024 14:09-0500 Systolic blood pressure 126 mm[Hg] Chuy Johny DO Work Phone: [facility] 05-09-2024 15:52-0500 Body height 162.6 cm Whit Ca COMMERCIAL CONSTRUCTION SUPERINTENDENT Work Phone: [facility] 05-09-2024 15:52-0500 Body mass index (BMI) [Ratio] 48.89 kg/m2 Whit Ca COMMERCIAL CONSTRUCTION SUPERINTENDENT Work Phone: [facility] 05-09-2024 15:52-0500 Body temperature 98.8 [degF] Whit Aichholz COMMERCIAL CONSTRUCTION SUPERINTENDENT Work Phone: [facility] 05-09-2024 15:52-0500 Body weight 129.18 kg Whit Aichholz COMMERCIAL CONSTRUCTION SUPERINTENDENT Work Phone: [facility] 05-09-2024 15:52-0500 Diastolic blood pressure 60 mm[Hg] Whit Aichholz COMMERCIAL CONSTRUCTION SUPERINTENDENT Work Phone: [facility] 05-09-2024 15:52-0500 Heart rate 79 /min Whit Aichholz COMMERCIAL CONSTRUCTION SUPERINTENDENT Work Phone: [facility] 05-09-2024 15:52-0500 Respiratory rate 20 /min Whit Aichholz COMMERCIAL CONSTRUCTION SUPERINTENDENT Work Phone: [facility] 05-09-2024 15:52-0500 SaO2% (BldA) [Mass fraction] 99 % Whit Aichholz COMMERCIAL CONSTRUCTION SUPERINTENDENT Work Phone: [facility] 05-09-2024 15:52-0500 Systolic blood pressure 150 mm[Hg] Whit Aichholz COMMERCIAL CONSTRUCTION SUPERINTENDENT Work Phone: [facility] 04-29-2024 15:35-0500 Blood Pressure Location Audi [facility]AN[facility] 04-29-2024 15:35-0500 Body temperature 98.6 [degF] Audi FRANCOIS [facility] 04-29-2024 15:35-0500 Diastolic blood pressure 84 mm[Hg] Audi FRANCOIS [facility] 04-29-2024 15:35-0500 Heart rate 82 /min Audi FRANCO[facility] 04-29-2024 15:35-0500 Respiratory rate 18 /min Audi [facility]ANCO[facility] 04-29-2024 15:35-0500 Systolic blood pressure 132 mm[Hg] Audi FRANCOIS [facility] 04-15-2024 16:35-0500 Body height 162.6 cm Whit Roby COMMERCIAL CONSTRUCTION SUPERINTENDENT Work Phone: [facility] 04-15-2024 16:35-0500 Body mass index (BMI) [Ratio] 49.47 kg/m2 Whit Roby COMMERCIAL CONSTRUCTION SUPERINTENDENT Work Phone: [facility] 04-15-2024 16:35-0500 Body temperature 98.49 [degF] Whit Roby COMMERCIAL CONSTRUCTION SUPERINTENDENT Work Phone: [facility] 04-15-2024 16:35-0500 Body weight 130.73 kg Whit Roby COMMERCIAL CONSTRUCTION SUPERINTENDENT Work Phone: [facility] 04-15-2024 16:35-0500 Diastolic blood pressure 80 mm[Hg] Whit Roby COMMERCIAL CONSTRUCTION SUPERINTENDENT Work Phone: [facility] 04-15-2024 16:35-0500 Heart rate 79 /min Whit Desiraez COMMERCIAL CONSTRUCTION SUPERINTENDENT Work Phone: [facility] 04-15-2024 16:35-0500 Respiratory rate 20 /min Whit Roby COMMERCIAL CONSTRUCTION SUPERINTENDENT Work Phone: [facility] 04-15-2024 16:35-0500 SaO2% (BldA) [Mass fraction] 99 % Whit Roby COMMERCIAL CONSTRUCTION SUPERINTENDENT Work Phone: [facility] 04-15-2024 16:35-0500 Systolic blood pressure 128 mm[Hg] Whit Desiraez COMMERCIAL CONSTRUCTION SUPERINTENDENT Work Phone: [facility] 03-06-2024 13:19-0400 Body height 162.6 cm Anam Ancestry DO Work Phone: [facility] 03-06-2024 13:19-0400 Body mass index (BMI) [Ratio] 48.58 kg/m2 [employer] DO Work Phone: [facility] 03-06-2024 13:19-0400 Body weight 128.37 kg Anamthomas Kirkland DO Work Phone: [facility] 03-06-2024 13:19-0400 Diastolic blood pressure 76 mm[Hg] Anam Isael DO Work Phone: [facility] 03-06-2024 13:19-0400 Heart rate 72 /min Anam Isael DO Work Phone: [facility] 03-06-2024 13:19-0400 Respiratory rate 14 /min Anam Isael DO Work Phone: [facility] 03-06-2024 13:19-0400 SaO2% (BldA) [Mass fraction] 97 % Anamthomas Kirkland DO Work Phone: [facility] 03-06-2024 13:19-0400 Systolic blood pressure 122 mm[Hg] Anamthomas Kirkland DO Work Phone: [facility] 03-05-2024 15:53-0400 Body height 162.6 cm Whit Roby COMMERCIAL CONSTRUCTION SUPERINTENDENT Work Phone: [facility] 03-05-2024 15:53-0400 Body mass index (BMI) [Ratio] 48.65 kg/m2 Whit Roby COMMERCIAL CONSTRUCTION SUPERINTENDENT Work Phone: [facility] 03-05-2024 15:53-0400 Body temperature 97.81 [degF] Whit Desiraez COMMERCIAL CONSTRUCTION SUPERINTENDENT Work Phone: [facility] 03-05-2024 15:53-0400 Body weight 128.55 kg Whit Carmenhdelvisz COMMERCIAL CONSTRUCTION SUPERINTENDENT Work Phone: [facility] 03-05-2024 15:53-0400 Diastolic blood pressure 104 mm[Hg] Whit Aicraikholz COMMERCIAL CONSTRUCTION SUPERINTENDENT Work Phone: [facility] 03-05-2024 15:53-0400 Heart rate 98 /min Whit Desiraez COMMERCIAL [employer]STRUCTION SUPERINTENDENT Work Phone: [facility] 03-05-2024 15:53-0400 Respiratory rate 20 /min Whit Moralescarolin COMMERCIAL CONSTRUCTION SUPERINTENDENT Work Phone: [facility] 03-05-2024 15:53-0400 SaO2% (BldA) [Mass fraction] 98 % Whit Hodgelamar COMMERCIAL CONSTRUCTION SUPERINTENDENT Work Phone: [facility] 03-05-2024 15:53-0400 Systolic blood pressure 144 mm[Hg] Whit Hodgelamar COMMERCIAL CONSTRUCTION SUPERINTENDENT Work Phone: [facility] 02-28-2024 15:48-0400 Body height 162.6 cm Mark Josef DO Work Phone: [facility] 02-28-2024 15:48-0400 Body mass index (BMI) [Ratio] 49.23 kg/m2 Mark Josef DO Work Phone: [facility] 02-28-2024 15:48-0400 Body weight 130.09 kg Mark Josef DO Work Phone: [facility] 02-28-2024 15:48-0400 Diastolic blood pressure 86 mm[Hg] Mark Josef DO Work Phone: [facility] 02-28-2024 15:48-0400 Heart rate 88 /min Mark Josef DO Work Phone: [facility] 02-28-2024 15:48-0400 SaO2% (BldA) [Mass fraction] 100 % Mark Josef DO Work Phone: [facility] 02-28-2024 15:48-0400 Systolic blood pressure 132 mm[Hg] Mark Josef DO Work Phone: [facility] 01-30-2024 15:47-0400 Body height 162.6 cm Whit Moralescarolin COMMERCIAL CONSTRUCTION SUPERINTENDENT Work Phone: [facility] 01-30-2024 15:47-0400 Body mass index (BMI) [Ratio] 48.85 kg/m2 Whit Roby COMMERCIAL CONSTRUCTION SUPERINTENDENT Work Phone: [facility] 01-30-2024 15:47-0400 Body temperature 98.49 [degF] Whit Desiraez COMMERCIAL [employer]STRUCTION SUPERINTENDENT Work Phone: [facility] 01-30-2024 15:47-0400 Body weight 129.09 kg Whit Aichholz COMMERCIAL CONSTRUCTION SUPERINTENDENT Work Phone: [facility] 01-30-2024 15:47-0400 Diastolic blood pressure 84 mm[Hg] Whit Aichholz COMMERCIAL CONSTRUCTION SUPERINTENDENT Work Phone: [facility] 01-30-2024 15:47-0400 Heart rate 73 /min Whit Aichholz COMMERCIAL [employer]STRUCTION SUPERINTENDENT Work Phone: [facility] 01-30-2024 15:47-0400 Respiratory rate 18 /min Whit Aichholz COMMERCIAL [employer]STRUCTION SUPERINTENDENT Work Phone: [facility] 01-30-2024 15:47-0400 SaO2% (BldA) [Mass fraction] 98 % Whit Aichholz COMMERCIAL CONSTRUCTION SUPERINTENDENT Work Phone: [facility] 01-30-2024 15:47-0400 Systolic blood pressure 138 mm[Hg] Whit Aichholz COMMERCIAL CONSTRUCTION SUPERINTENDENT Work Phone: [facility] 04-21-2023 09:57-0500 Blood Pressure Location Audi [facility] 04-21-2023 09:57-0500 Diastolic blood pressure 80 mm[Hg] Audi [facility]ANCO[facility] 04-21-2023 09:57-0500 Heart rate 68 /min Audi FRANCO[facility] 04-21-2023 09:57-0500 Respiratory rate 16 /min Audi FRANCO[facility] 04-21-2023 09:57-0500 Systolic blood pressure 135 mm[Hg] Audi FRANCOIS [facility] 04-08-2022 14:15-0500 Body height 162.56 cm Luciana Flores Other [facility] Other 04-08-2022 14:15-0500 Body mass index (BMI) [Ratio] 50.46 kg/m2 Luciana Flores Other [facility] Other 04-08-2022 14:15-0500 Body temperature 98.4 [degF] Luciana Mark Other [facility] Other 04-08-2022 14:15-0500 Body weight 133.36 kg Luciana Flores Other [facility] Other 04-08-2022 14:15-0500 Respiratory rate 18 /min Luciana Flores Other [facility] Other 04-08-2022 14:15-0500 SaO2% (BldA) [Mass fraction] 99 % Luciana Flores Other [facility] Other 04-04-2022 09:23-0500 Blood Pressure Location Audi [facility] 04-04-2022 09:23-0500 Diastolic blood pressure 89 mm[Hg] Audi FRANCOIS [facility] 04-04-2022 09:23-0500 Heart rate 75 /min Audi FRANCOIS [facility] 04-04-2022 09:23-0500 Respiratory rate 16 /min Audi FRANCO[facility] 04-04-2022 09:23-0500 Systolic blood pressure 136 mm[Hg] Audi FRANCOIS [facility] 12-30-2021 12:56-0400 Body height 162.6 cm Taiwo Torres MD Work Phone: [facility] 12-30-2021 12:56-0400 Body weight 136.08 kg Taiwo Torres MD Work Phone: [facility] 12-30-2021 12:56-0400 Diastolic blood pressure 72 mm[Hg] Taiwo Torres MD Work Phone: [facility] 12-30-2021 12:56-0400 Systolic blood pressure 116 mm[Hg] Taiwo Torres MD Work Phone: [facility] 08-27-2021 17:50-0400 Body height 162.56 cm Luciana Flores Other [facility] Other 08-27-2021 17:50-0400 Body mass index (BMI) [Ratio] 49.77 kg/m2 Luciana Flores Other [facility] Other 08-27-2021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 Pre-diabetes Expected: 11/13/2024 (Approximate), Expires: 11/13/2025 [facility] Comment on above: Expected: 11/13/2024 (Approximate), Expires: 11/13/2025 Start: 11-13-2024 End: 11-13-2025 Hemoglobin A1c/Hemoglobin.total in Blood Hemoglobin A1c Lab Routine Pre-diabetes Expected: 11/13/2024 (Approximate), Expires: 11/13/2025 [facility] Comment on above: Expected: 11/13/2024 (Approximate), Expires: 11/13/2025 Start: 11-13-2024 End: 11-13-2025 Lipid 1996 panel - Serum or Plasma Lipid panel Lab Routine Morbid (severe) obesity due to excess calories (CMS-HCC) Pre-diabetes Expected: 11/13/2024 (Approximate), Expires: 11/13/2025 [facility] Comment on above: Expected: 11/13/2024 (Approximate), Expires: 11/13/2025 Start: 11-13-2024 End: 11-13-2025 Microalbumin/Creatinine panel in random Urine Microalbumin / creatinine, urine ratio Lab Routine Primary hypertension Pre-diabetes Expected: 11/13/2024 (Approximate), Expires: 11/13/2025 [facility] Comment on above: Expected: 11/13/2024 (Approximate), Expires: 11/13/2025 Start: 11-13-2024 End: 11-13-2025 Thyrotropin [Units/volume] in Serum or Plasma TSH Lab Routine Morbid (severe) obesity due to excess calories ([facility]-HCC) Expected: 11/13/2024 (Approximate), Expires: 11/13/2025 [facility] Comment on above: Expected: 11/13/2024 (Approximate), Expires: 11/13/2025 Start: 11-13-2024 End: 11-13-2025 Urinalysis complete panel - Urine Urinalysis with reflex microscopic (clean catch) Lab Routine Primary hypertension Pre-diabetes Expected: 11/13/2024 (Approximate), Expires: 11/13/2025 [facility] Comment on above: Expected: 11/13/2024 (Approximate), Expires: 11/13/2025 Start: 11-06-2024 End: 11-06-2024 Clinical Support 11/06/2024 12:00 PM EDT Clinical Support [facility] [address] [place] [address] Patric Archer LPC [facility] Start: 10-23-2024 End: 10-23-2024 Clinical Support 10/23/2024 4:00 PM EDT Clinical Support [facility] [address] [place] [address] Patric Archer LPC [facility] Start: 10-19-2024 Screening for malign ant neoplasm of cervix [facility] Start: 10-10-2024 End: 10-10-2024 Clinical Support 10/10/2024 4:00 PM EDT Clinical Support [facility] [address] [place] [address] [facility] Start: 09-23-2024 End: 09-23-2024 Clinical Support [facility] Comment on above: Arrived Start: 08-21-2024 End: 08-21-2024 Clinical Support 08/21/2024 2:00 PM EDT Clinical Support [facility] [address] [place] [address] [facility]ric [facility] Start: 08-19-2024 End: 08-19-2024 Patient encounter procedure [facility] Start: 08-14-2024 End: 08-14-2024 Clinical Support 08/14/2024 4:00 PM EDT Clinical Support [facility] [address] [place] [address] Patric Archer LPC [facility] Start: 08-12-2024 End: 08-12-2024 Patient encounter procedure [facility] Comment on above: FLAVIO (obstructive sle ep apnea) (Primary Dx); Primary hypertension (CMS/HCC); Morbid (severe) obesity due to excess calories (CMS/HCC); Major depressive disorder, single episode, moderate with anxious distress (HCC) (CMS/HCC) Start: 07-17-2024 End: 07-17-2024 Clinical Support 07/17/2024 4:00 PM EDT Clinical Support [facility] [address] [place] [address] Patric Archer LPC [facility] Start: 06-25-2024 End: 06-25-2024 Clinical Support 06/25/2024 10:00 AM EST Clinical Support [facility] [address] [place] [address] Patric Archer LPC [facility] Start: 06-17-2024 End: 06-17-2024 Patient encounter procedure 06/17/2024 2:30 PM EST Procedure Visit [facility] [address] [place] [address] [place] [phone] Chuy Mcclain, DO [address] [place] [address] [place] [address] [facility] Start: 06-17-2024 End: 06-17-2025 Colposcopy Colposcopy Procedures Routine LGSIL of cervix of undetermined significance Papanicolaou smear of cervix with low risk human papillomavirus (HPV) DNA test positive Expected: 06/17/2024 (Approximate), Expires: 06/17/2025 [facility] Work Phone: Comment on above: Expected: 06/17/2024 (Approximate), Expires: 06/17/2025 Start: 06-11-2024 End: 06-11-2024 Clinical Support 06/11/2024 10:00 AM EST Clinical Support [facility] [address] [place] [address] Patric Archer LPC [facility] Start: 06-10-2024 End: 06-10-2024 Patient encounter procedure [facility] Comment on above: FLAVIO (obstructive sle ep apnea) (Primary Dx); Primary hypertension (CMS/HCC); Ventral hernia without obstruction or gangrene; Body mass index (BMI) 45.0-49.9, adult (CMS/HCC); Morbid (severe) obesity due to excess calories (CMS/HCC); Major depressive disorder, single episode, moderate (HCC) (CMS/HCC) Start: 05-29-2024 End: 05-29-2024 Patient encounter procedure [facility] Comment on above: Pap smear abnormalit y of cervix with LGSIL Start: 05-20-2024 End: 05-20-2024 [facility] Comment on above: Arrived Start: 05-09-2024 End: 05-09-2024 Patient encounter procedure [facility] Comment on above: FLAVIO (obstructive sle ep apnea) (Primary Dx); Major depressive disorder, single episode, moderate (HCC) (CMS/HCC); Morbid (severe) obesity due to excess calories (CMS/HCC); Body mass index (BMI) 45.0-49.9, adult (CMS/HCC); Primary hypertension (CMS/HCC); PTSD (post-traumatic stress disorder) (CMS/HCC) Start: 04-25-2024 End: 04-25-2024 Patient encounter procedure 04/25/2024 3:20 PM EST Office Visit [facility] [address] [place] [address] Whit Ca NP [address] [place] [address] [facility] Start: 04-23-2024 End: 04-23-2024 Clinical Support 04/23/2024 2:00 PM EST Clinical Support [facility] [address] [place] [phone] Patric Davies LPC [facility] Start: 04-15-2024 End: 04-15-2024 Patient encounter procedure [facility] Comment on above: Primary hypertension (CMS/HCC) (Primary Dx); Morbid (severe) obesity due to excess calories (CMS/HCC); Well woman exam with routine gynecological exam Start: 04-15-2024 End: 04-15-2025 THIN PREP TIS PAP AND HR HPV DNA THIN PREP TIS PAP AND HR HPV DNA Pathology and Cytology Routine Well woman exam with routine gynecological exam Expected: 04/15/2024 (Approximate), Expires: 04/15/2025 [facility] Work Phone: Comment on above: Expected: 04/15/2024 (Approximate), Expires: 04/15/2025 Start: 04-09-2024 End: 04-09-2024 Clinical Support [facility] Comment on above: Arrived Start: 03-20-2024 End: 03-20-2024 Clinical Support 03/20/2024 4:00 PM EST Clinical Support [facility] [address] [place] [phone] Patric Davies LPC [facility] Start: 03-06-2024 End: 03-06-2024 Patient encounter procedure 03/06/2024 1:00 PM EDT Office Visit [facility] [address] [place] [address] Anam Kirkland, [address] [place] [address] Ventral hernia without obstruction or gangrene [facility] Comment on above: Ventral hernia witho ut obstruction or gangrene Start: 03-05-2024 End: 03-05-2024 Patient encounter procedure 03/05/2024 3:40 PM EDT Office Visit [facility] [address] [place] [phone] Whit Ca NP [address] [place] [address] [facility] Start: 03-05-2024 End: 03-05-2025 Basic metabolic 1998 panel - Serum or Plasma Basic metabolic panel Lab Routine Pre-diabetes Primary hypertension (CMS/HCC) Expected: 03/05/2024 (Approximate), Expires: 03/05/2025 [facility] Work Phone: Comment on above: Expected: 03/05/2024 (Approximate), Expires: 03/05/2025 Start: 03-05-2024 End: 03-05-2025 Hemoglobin A1c/Hemoglobin.total in Blood Hemoglobin A1c Lab Routine Pre-diabetes Expected: 03/05/2024 (Approximate), Expires: 03/05/2025 [facility] Comment on above: Expected: 03/05/2024 (Approximate), Expires: 03/05/2025 Start: 03-05-2024 End: 03-05-2025 US Pelvis US Pelvis w/ TV Imaging Routine Polycystic ovaries Pelvic pain Expected: 03/05/2024 (Approximate), Expires: 03/05/2025 [facility] Comment on above: Expected: 03/05/2024 (Approximate), Expires: 03/05/2025 Start: 03-04-2024 End: 03-04-2024 Clinical Support [facility] Comment on above: Arrived Start: 02-28-2024 End: 02-28-2024 Patient encounter procedure [facility] Comment on above: Arrived Start: 02-06-2024 End: 02-06-2024 Clinical Support 02/06/2024 4:00 PM EDT Clinical Support [facility] [address] [place] [address] Patric Davies, COLLECTIONS ANALYST [facility] Start: 01-30-2024 End: 01-30-2024 Patient encounter procedure [facility] Comment on above: Arrived Start: 01-24-2024 End: 01-24-2024 Clinical Support 01/24/2024 4:00 PM EDT Clinical Support [facility] [address] [place] [address] Patric Davies, COLLECTIONS ANALYST [facility] Start: 01-09-2024 End: 01-09-2024 Clinical Support [facility] Comment on above: Arrived Start: 01-06-2022 Influenza vaccination INFLUENZA (#1) [facility] Start: 12-30-2021 End: 03-01-2022 25-hydroxyvitamin D3 [Mass/volume] in Serum or Plasma [facility] Work Phone: Comment on above: Expected: 12/30/2021 , Expires: 03/01/2022 Start: 12-30-2021 End: 03-01-2022 Estradiol (E2) [Mass/volume] in Serum or Plasma [facility] Work Phone: Comment on above: Expected: 12/30/2021 , Expires: 03/01/2022 Start: 12-30-2021 End: 03-01-2022 Follitropin [Units/volume] in Serum or Plasma [facility] Work Phone: Comment on above: Expected: 12/30/2021 , Expires: 03/01/2022 Start: 12-30-2021 End: 03-01-2022 Hemoglobin A1c in Blood [facility] Work Phone: Comment on above: Expected: 12/30/2021 , Expires: 03/01/2022 Start: 12-30-2021 End: 03-01-2022 Prolactin [Mass/volume] in Serum or Plasma [facility] Work Phone: Comment on above: Expected: 12/30/2021 , Expires: 03/01/2022 Start: 12-30-2021 End: 03-01-2022 RUBELLA IGG AB [facility] Work Phone: Comment on above: Expected: 12/30/2021 , Expires: 03/01/2022 Start: 12-30-2021 End: 03-01-2022 Thyrotropin [Units/volume] in Serum or Plasma [facility] Work Phone: Comment on above: Expected: 12/30/2021 , Expires: 03/01/2022 Start: 12-30-2021 End: 03-01-2022 TYPE + SCREEN [facility] Work Phone: Comment on above: Expected: 12/30/2021 , Expires: 03/01/2022 Start: 12-30-2021 End: 03-01-2022 VARICELLA ZOSTER IGG [facility] Work Phone: Comment on above: Expected: 12/30/2021 , Expires: 03/01/2022 Start: 01-30-2021 COVID-19 VACCINE (3 - Booster for Pfizer series) COVID-19 VACCINE (3 - Booster for Pfizer series) [facility] Start: 2019 HPV TESTING HPV TESTING [facility] Start: 2019 Screening for malign ant neoplasm of cervix HPV/Cotest [facility] Start: 2010 PAP TESTING PAP TESTING [facility] Start: 02-23-2008 Urine microalbumin profile DTAP,TDAP,TD (1 - Tdap) [facility] Start: 2007 HEPATITIS C SCREENING HEPATITIS C SC REENING [facility] Start: 2007 HIV SCREENING HIV SCREENING [facility] Start: 2001 Adult depression screening assessment DEPRESSION SCREENING [facility] Start: 1989 HEPATITIS B (1 of 3 - 3-dose series) HEPATITIS B (1 of 3 - 3-dose series) [facility] Immunizations Immunization Date Immunization Notes Care Provider Fa toryty 08-30-2020 SARS-CoV-2 (COVID-19 ) mRNA BNT-162b2 jeffrey Audi FRANCOIS [facility] Comment on above: Result Comment: 2021: TPVAL 08-07-2020 SARS-CoV-2 (COVID-19 ) mRNA BNT-162b2 vax Audi FRANCOIS [facility] Comment on above: Result Comment: 2021: TPVAL 09-21-2001 measles, mumps and rubella virus vaccine Audi [facility] Payers Date Payer Category Payer Self-pay [id number] [id number] 315 2023 Unknown [id number] 2021 Unknown [id number] 2019 Unknown [id number]. 1.13.15 9.2.7.3.058786.315 2018 Unknown [id number] 1989 Unknown [id number] 2.16.840.1.788120.3.57 9.2.593 1989 Unknown [id number] 2.16.840.1.172462.3.57 9.2.593 1989 Unknown [id number] 2.16.840.1.741497.3.57 9.2.593 1989 Unknown [id number] 2.16.840.1.143572.3.57 9.2.593 1989 Unknown [id number] 2.16.840.1.743767.3.57 9.2.593 1989 Unknown [id number] 2.16.840.1.294025.3.57 9.2.593 1989 Unknown [id number] 2.16.840.1.744621.3.57 9.2.593 1989 Unknown [id number] 2.16.840.1.433275.3.57 9.2.593 1989 Unknown [id number] 2.16.840.1.516177.3.57 9.2.593 1989 Unknown [id number] 2.16.840.1.860525.3.57 9.2.593 1989 Unknown [id number] 2.16.840.1.777401.3.57 9.2.727 1989 Unknown [id number] 2.16.840.1.893521.3.57 9.2.1286 1989 Unknown [id number] 2.16.840.1.399345.3.57 9.2.1286 1989 Unknown [id number] 2.16.840.1.104913.3.57 9.2.1286 1989 Unknown [id number] 2.16.840.1.782171.3.57 9.2.1286 1989 Unknown [id number] 2.16.840.1.253398.3.57 9.2.1286 1989 Unknown [id number] 2.16.840.1.723156.3.57 9.2.1286 1989 Unknown [id number] 2.16.840.1.331386.3.57 9.2.1286 1989 Unknown [id number] 2.16.840.1.021992.3.57 9.2.1259 1989 Unknown [id number] 2.16.840.1.565621.3.57 9.2.1259 1989 Unknown [id number] 2.16.840.1.817889.3.57 9.2.1259 1989 Unknown [id number] 2.16.840.1.097624.3.57 9.2.1259 1989 Unknown [id number] 2.16.840.1.148136.3.57 9.2.1259 1989 Unknown [id number] 2.16840.1.764138.3.57 9.2.1259 1989 Unknown [id number] 2.16840.1.956784.3.57 9.2.1259 1989 Unknown [id number] 2.16.840.1.768720.3.57 9.2.1259 1989 Unknown [id number] 2.16.840.1.271005.3.57 9.2.1259 1989 Unknown [id number] 2.16.840.1.983428.3.57 9.2.1259 1989 Unknown [id number] 2.16.840.1.664588.3.57 9.2.1259 1989 Unknown [id number] 2.16.840.1.068040.3.57 9.2.1259 1989 Unknown [id number] 2.16.840.1.893446.3.57 9.2.1259 1989 Unknown [id number] 2.16.840.1.348545.3.57 9.2.1259 1989 Unknown [id number] 2.16.840.1.782965.3.57 9.2.1259 1989 Unknown [id number] 2.16.840.1.003048.3.57 9.2.1259 1989 Unknown [id number] 2.16.840.1.627008.3.57 9.2.1259 1989 Unknown [id number] 2.16.840.1.107841.3.57 9.2.1259 1989 Unknown [id number] 2.16.840.1.077119.3.57 9.2.1259 1989 Unknown [id number] 2.16.840.1.847215.3.57 9.2.1259 1989 Unknown [id number] 2.16840.1.748734.3.57 9.2.1259 1989 Unknown [id number] 2.840.1.952724.3.57 9.2.1259 1989 Unknown [id number] 2.16840.1.200015.3.57 9.2.1259 1989 Unknown [id number] 2.16840.1.300367.3.57 9.2.1259 1989 Unknown [id number] 2.16840.1.231479.3.57 9.2.1259 1989 Unknown [id number] 2.840.1.480304.3.57 9.2.1259 1989 Unknown [id number] 2.16840.1.261782.3.57 9.2.1259 1989 Unknown [id number] 2.16840.1.530520.3.57 9.2.1259 1989 Unknown [id number] 2.16.840.1.181602.3.57 9.2.1259 1989 Unknown [id number] 2.16840.1.195327.3.57 9.2.1259 1989 Unknown [id number] 2.16.840.1.873114.3.57 9.2.1259 1989 Unknown [id number] 2.16.840.1.463182.3.57 9.2.1259 1989 Unknown [id number] 2.16.840.1.093808.3.57 9.2.1259 1959 [facility] [id number] 2.16.840.1.176094.19 Unknown [id number] 2.16.840.1.885669.3.57 9.2.531 Unknown [id number] 2.16.840.1.738557.3.57 9.2.531 Social History Date Type Detail Facility Unknown if ever smoked [facility] Other Start: 07-25-2023 End: 10-10-2023 Sex Assigned At [facility] Start: 12-30-2021 End: 01-30-2024 Tobacco smoking status [facility]IS Ex-smoker [facility] Start: 05-08-2005 End: 05-08-2020 History of tobacco use Current smoker [facility] Start: 05-08-2005 End: 05-08-2020 History of tobacco use Cigarette Smoker [facility] Start: 12-30-2021 Tobacco use and exposure User of smokeless tobacco [facility] Start: 12-30-2021 Tobacco Comment VAPE [facility] Start: 1989 Sex Assigned At Not on file [facility] Start: 12-20-2021 End: 12-30-2021 Exposure to SARS-CoV-2 (event) Not sure [facility] Start: 1989 Sex Assigned At Female [facility] Start: 07-25-2023 End: 01-30-2024 Cigarettes smoked current (pack per day) - Reported 1.5 [facility] Start: 08-21-2023 End: 01-30-2024 Tobacco use and exposure Smokeless tobacco non-user [facility] Start: 01-30-2024 End: 11-30-2024 Alcoholic beverage intake Ex-drinker (finding) [facility] Do you belong to any clubs or organizations such as rastafari groups, unions, fraternal or athletic groups, or [...] and energy drink 2 weekly [facility] Tobacco smoking stat us [facility] Unknown if ever smoked [facility] Work Phone: Start: 06-19-2024 Sex Female (finding) [facility] Goals Date Patient Goal Desired Activity /State Personal health goal Functional Status Date Assessment Result Facility 04-29-2024 Functional Status N/A [facility] 04-21-2023 Functional Status N/A [facility] 04-04-2022 Functional Status N/A [facility] Clinical Notes 08-27-2021 to 11-30-2024 Nico Pandey, - 11/30/2024 12:10 PM Karla Ca NP - 11/13/2024 4:09 PM Karla Ca NP - 11/13/2024 4:08 PM Karla Ca NP - 11/13/2024 3:45 PM EDTPatient Instructions Note Date & Type Note Facility 11-30-2024 History of Presen t illness Narrative Images from the original note were not included. [address] , [address] [facility], [address] P: [phone] F: [phone] HPI Historian of HPI: patient Ramin Lanier is a 34 y.o. female who presents today to the Urgent Care with the following complaints and denials which have been present for 3 day(s) C/O Denies Symptom Comments [x] [] Runny Nose [x] [] Difficulty Swallowing [x] [] Sore Throat [x] [] Cough [x] [] Ear Pain Bilateral [x] [] Fever [x] [] Chills [x] [] Nasal Congestion [x] [] Myalgia Tired body aches [x] [] Sinus Pain [x] [] Sinus Pressure Additional Comments: pt has taken ibuprofen tylenol OTC medication without relief PT complains of sore throat ear pain and cough. Pt sore throat states got worse Monday. Pt complain of swollen lymph nodes body aches and tired. Pt is eating and drinking ok just with pain. No N/V/D. Some dizziness. Pt is agreeable to strep flu and covid. ROS A complete system ROS was performed and negative aside from the pertinent positives noted in the HPI and PE. IH Testing: PHYSICAL EXAM Physical Exam Constitutional: Appearance: Normal appearance. HENT: Mouth/Throat: Pharynx: Oropharyngeal exudate and posterior oropharyngeal erythema present. Cardiovascular: Rate and Rhythm: Normal rate. Pulmonary: Effort: Pulmonary effort is normal. Breath sounds: Normal breath sounds. Lymphadenopathy: Cervical: Cervical adenopathy present. Neurological: Mental Status: She is alert. Psychiatric: Mood and Affect: Mood normal. TREATMENT PLAN Diagnoses and all orders for this visit: Streptococcal pharyngitis (Primary) - clindamycin (Cleocin) 300 MG capsule; 1 capsule 3 times a day until all taken Pharyngitis, unspecified etiology - STREP DNA PROBE Cough, unspecified type - RAPID DNA COVID - INFLUENZA DNA PROBE Take medication as prescribed. RTO if not improving or worsening. You are contagious for approximately 24 hours. You may use topical anesthetic or menthol-based lozenges, as well as anti-inflammatory medication for throat pain. documented in this encounter [facility] 11-13-2024 History of Presen t illness Narrative Associated Problem(s): Erythema ab igne Likely related heated seats Avoid use of them for now Hand out given if worsening let me know Will recheck in 2 months Associated Problem(s): Epistaxis Not felt to be related to BP More likely dryness/allergy Stop nasal steroid for now, trial OTC nasal saline spray If not better let me know Associated Problem(s): Panic attack as reaction to stress Continue counseling Increase buspar to 10mg twice a day as needed for anxiety Associated Problem(s): Major depressive disorder, single episode, moderate with anxious distress (HCC) Current meds: buspar and prozac Bump up buspar Bruising on backs of legs Random nose bleeds- last couple months Pt has not used CPAP since June. Images from the original note were not included. Ramin Lanier is a 34 y.o. female presents with [...] palpitations, peripheral edema or shortness of breath. There are no associated agents to hypertension. Risk factors for coronary artery disease include obesity. Past treatments include beta blockers. The current treatment provides moderate improvement. There are no compliance problems. There is no history of CAD/AK, heart failure or PVD. SUBJECTIVE: MEDICATIONS: Current Outpatient Medications Medication Instructions busPIRone (BUSPAR) 5 mg, Oral, 2 times daily FLUoxetine (PROZAC) 40 mg, Oral, Daily ibuprofen 800 mg, Every 6 hours PRN labetalol (NORMODYNE) 100 mg, Oral, 2 times daily ALLERGIES: Allergies Allergen Reactions [place] Extract Hives Other Rash Penicillin G Rash [...] Size: Large adult) Pulse 98 Temp 98.5 F (Temporal) Resp 18 Wt 279 lb 6.4 oz SpO2 98% BMI 47.96 kg/m Smoking Status Former BSA 2.4 m Physical Exam Vitals and nursing note [...] Morbid (severe) obesity due to excess calories ([facility]) Discussed with patient their BMI (actual, verses [...] me know Will recheck in 2 months Associated Problem(s): Pre-diabetes No current meds for this A1c: 5.5% on 03/05/24 Associated Problem(s): Morbid (severe) obesity due to excess calories ([facility]) Discussed with patient their BMI (actual, verses recommended). We have also discussed lifestyle modifications: attempts to perform physical activity as chronic conditions allow, also to monitor dietary intake: increasing protein/fruits/veggies and lowering carb intake (unless contraindicated). Limit sodas, juices, and sugary drinks. Will look into GLP 1 for obesity treatment Associated Problem(s): Primary hypertension Please check blood pressure daily and record DASH diet Limit caffeine Take medication as directed Contact office if chest pain, pressure, dizziness, shortness of breath, swelling legs Recommend slow position changes Current med: labetolol Associated Problem(s): FLAVIO (obstructive sleep apnea) You have a diagnosis of obstructive sleep apnea. It is recommended that you wear your PAP device any time while in bed sleeping. Not using the PAP device can increase your risk of elevated/uncontrolled high blood pressure, atrial fibrillation, heart attack, stroke, or sudden . Compliance with PAP: not documented in this encounter [facility] 11-13-2024 Instructions Whit Ca NP - 11/13/2024 3:20 PM EDT Increase buspirone to 10mg twice daily, cont counseling and fluoxetine No change in blood pressure meds Call sleep doctor and make appt to talk about documented in this encounter [facility] 09-24-2024 Telephone encounter Note I have FMLA papers for this patient. Please contact her to see what is the diagnosis that she is seeking [place] for [place] [facility] 09-24-2024 Miscellaneous Notes I have FMLA papers for this patient. Please contact her to see what is the diagnosis that she is seeking [place] for [place] documented in this encounter [facility] 08-19-2024 History of Presen t illness Narrative Images from the original note were not included. Chief Complaint Patient presents with Sleep Apnea Subjective Ramin Bansalharrietmara, 34 y.o., female being seen in Sleep Consultation at the request of Dr. Aly PATRICK Ramin states she has not been wearing her machine like she should be. She averages about 5-6 hours of sleep when she works overtime. She will get 7-8 hours of sleep on a normal day. There are some days where she is tired throughout the day. She states she knows she needs to wear but it just does not want to. Past Medical History: Diagnosis Date Abnormal Pap smear of cervix Allergic Calculus of gallbladder without cholecystitis without obstruction 08/10/2023 Depression (CMS/HCC) GERD (gastroesophageal reflux disease) Headache HPV (human papilloma virus) infection Hypertension (CMS/HCC) Obesity Panic attack (CMS/HCC) Sleep apnea Sleep difficulties Past Surgical History: Procedure Laterality Date CHOLECYSTECTOMY 08/2023 Family History Problem Relation Name Age of Onset COPD Father Isiah bansalharrietmara Kidney disease Father Isiah lanier Cancer Maternal Grandmother Amanda yolande Drug abuse Sister Reta bansaljulee Social History Tobacco Use Smoking status: Former Current packs/day: 0.00 Average packs/day: 1.5 packs/day for 15.0 years (22.5 ttl pk-yrs) Types: Cigarettes Start date: 2005 Quit date: 2020 Years since quittin.2 Smokeless tobacco: Never Substance Use Topics Alcohol use: Not Currently Comment: caffine: coffee 2 daily and energy drink 2 weekly Allergies: [place] extract, Other, and Penicillin g General: No [...] Neurologic: No new headaches or dizziness Vitals: 08/19/24 1609 BP: 157/88 Pulse: 65 Body mass index is 48.06 kg/m . weight: 280 lb Neurologic exam: General: obese, cooperative, pleasant Mental [...] water and this did work well for her at controlling her events. She was complaint on a download for 30 days from November to December 2023. Today, unfortunately she is not complaint on download ending 08/13/2024 as she only put the mask on days, she wore the mask > 4 hours 3% of the days with a nightly average usage of 4 hours, 53 minutes, with an average AHI of 0.7. . She had some traumatic events and stress in her life since starting the machine. She then at the end of May 2024 had an incisional hernia repair. These are her reasons for noncompliance. She is now getting back to using the machine although this has been difficult for her. She was counseled on the importance of the machine and mask. She already has high BP. She has increased risk of stroke heart attack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 with medications is 76-100%. Depression Visit Type: follow-up Patient presents with the following symptoms: anhedonia, depressed mood, irritability, nervousness/anxiety, suicidal ideas and weight gain. Patient is not experiencing: decreased concentration, excessive worry, insomnia, malaise, muscle tension, palpitations, shortness of breath and weight loss. Frequency of symptoms: most days Severity: moderate Sleep per night: 6 hours Sleep quality: fair Nighttime awakenings: one to two Compliance with medications: 76-100% SUBJECTIVE: MEDICATIONS: Current Outpatient Medications Medication Instructions busPIRone (BUSPAR) 5 mg, Oral, Every 12 hours PRN FLUoxetine (PROZAC) 10 mg, Oral, Daily labetalol (NORMODYNE) 100 mg, Oral, 2 times daily ALLERGIES: Allergies Allergen Reactions [place] Extract Hives Other Rash Penicillin G Rash REVIEW OF SYMPTOMS: Review of Systems Constitutional: Positive for irritability and weight gain. Negative for appetite change, chills, fever, malaise/fatigue and weight loss. HENT: Negative for congestion, ear pain and [...] dizziness, tremors, seizures, syncope and headaches. Psychiatric/Behavioral: Positive for depression and suicidal ideas. Negative for behavioral problems, decreased concentration and self-injury. The patient is nervous/anxious. The patient does not have insomnia. Depression Hematological: Does not bruise/bleed easily. Endocrine: Negative [...] in her father. OBJECTIVE: Visit Vitals BP 150/60 (BP Location: Left arm, Patient Position: Sitting, BP Cuff Size: Large adult long) Pulse 79 Temp 98.8 F (Temporal) Resp 20 Ht 5' 4 Wt 284 lb 12.8 oz SpO2 99% BMI 48.89 kg/m Smoking Status Former BSA 2.41 m Physical Exam Vitals and nursing note reviewed. Constitutional: General: She is not in acute distress. Appearance: Normal appearance. HENT: Head: Normocephalic and atraumatic. Right Ear: External ear normal. Left Ear: External ear normal. Nose: Nose normal. Mouth/Throat: Mouth: Mucous membranes are moist. Eyes: Extraocular Movements: Extraocular movements intact. Conjunctiva/sclera: Conjunctivae normal. Cardiovascular: Rate and Rhythm: Normal rate and regular rhythm. Pulses: Normal pulses. Heart sounds: Normal heart sounds. Pulmonary: Effort: Pulmonary effort is normal. Breath sounds: Normal breath sounds. Abdominal: General: Bowel sounds are normal. There is no distension. Palpations: Abdomen is soft. There is no mass. Tenderness: There is no abdominal tenderness. Musculoskeletal: General: Normal range of motion. Cervical back: Normal range of motion and neck supple. Skin: General: Skin is warm and dry. Capillary Refill: Capillary refill takes 2 to 3 seconds. Findings: No rash. Neurological: General: No focal deficit present. Mental Status: She is alert and oriented to person, place, and time. Psychiatric: Mood and Affect: Mood normal. Behavior: Behavior normal. Thought Content: Thought content normal. Judgment: Judgment normal. ASSESSMENT AND PLAN: Follow up in about 4 weeks (around 06/06/2024) for Recheck. Problem List Items Addressed This Visit Primary hypertension (CMS/HCC) Please check blood pressure daily and record DASH diet Limit caffeine Take medication as directed Contact office if chest pain, pressure, dizziness, shortness of breath, swelling legs Recommend slow position changes Current med: labetolol Forgot am dose, took it right before getting here FLAVIO (obstructive sleep apnea) You have a diagnosis of obstructive sleep apnea. It is recommended that you wear your PAP device any time while in bed sleeping. Not using the PAP device can increase your risk of elevated/uncontrolled high blood pressure, atrial fibrillation, heart attack, stroke, or sudden . Compliant with pap: no Hours used:NA Feel better with it:NA Panic attack as reaction to stress (CMS/HCC) Relevant Medications FLUoxetine (PROzac) 10 MG capsule Morbid (severe) obesity due to excess calories (CMS/HCC) Body mass index (BMI) 45.0-49.9, adult (CMS/HCC) PTSD (post-traumatic stress disorder) (CMS/HCC) Relevant Medications FLUoxetine (PROzac) 10 MG capsule Major depressive disorder, single episode, moderate (HCC) (CMS/HCC) - Primary Will start with fluoxetine at 10mg daily [...] if these occur. Fu in 4 weeks Relevant Medications FLUoxetine (PROzac) 10 MG capsule Associated Problem(s): Primary hypertension (CMS/HCC) Please check blood pressure daily and record DASH diet Limit caffeine Take medication as directed Contact office if chest pain, pressure, dizziness, shortness of breath, swelling legs Recommend slow position changes Current med: labetolol Forgot am dose, took it right before getting here Associated Problem(s): FLAVIO (obstructive sleep apnea) You have a diagnosis of obstructive sleep apnea. It is recommended that you wear your PAP device any time while in bed sleeping. Not using the PAP device can increase your risk of elevated/uncontrolled high blood pressure, atrial fibrillation, heart attack, stroke, or sudden . Compliant with pap: no Hours used:NA Feel better with it:NA documented in this encounter [facility] 05-09-2024 Instructions Whit Ca NP - 05/09/2024 3:40 PM EST No changes to blood pressure med Recommend restarting PAP therapy for sleep apnea Start fluoxetine for depression/anxiety/panic attack, continue with buspirone Take medication only as directed. This medication will take approximately 4-6 weeks to become effective. If any suicidal thoughts, thoughts of hurting others, or hallucinations contact the office or proceed to the Emergency Room for mental health evaluation. Medication may cause dry mouth, dizziness, and in some cases worsening in depression symptoms. Please contact the office if these occur. documented in this encounter [facility] 04-29-2024 Hospital Discharg e instructions Patient Education 04/29/2024 16:28:14 Kidney Stones, Ulpj-re-Gsrr Kidney Stones Kidney stones are rock-like masses that form inside of the kidneys. Kidneys are organs that make pee (urine). A kidney stone may move into other parts of the urinary tract, including: The tubes that connect the kidneys to the bladder (ureters). The bladder. The tube that carries urine out of the body (urethra). Kidney stones can cause very bad pain and can block the flow of pee. The stone usually leaves your body through your pee. A doctor may need to take out the stone. What are the causes? Kidney stones may be caused by: Too much calcium in the body. This may be caused by too much parathyroid hormone in the blood. Uric acid crystals in the bladder. The body makes uric acid when you eat certain foods. Narrowing of one or both of the ureters. A kidney blockage that you were born with. Past surgery on the kidney or the ureters. What increases the risk? You are more likely to develop this condition if: You have had a kidney stone in the past. Other people in your family have had kidney stones. You do not drink enough water. You eat a diet that is high in protein, salt (sodium), or sugar. You are very overweight (obese). What are the signs or symptoms? Symptoms of a kidney stone may include: Pain in the side of the belly, right below the ribs. Pain usually spreads to the groin. Needing to pee often or right away. Pain when peeing. Blood in your pee. Feeling like you may vomit (nauseous). Vomiting. Fever and chills. How is this treated? Treatment depends on the size, location, and makeup of the kidney stones. The stones will often pass out of the body when you pee. You may need to: Drink more fluid to help pass the stone. ?In some cases, you may be given fluids through an IV tube at the hospital. Take medicine for pain. Change your diet to help keep kidney stones from coming back. Sometimes, you may need: A procedure to break up kidney stones using a beam of light (laser) or shock waves. Surgery to remove the kidney stones. Follow these instructions at home: Medicines Take quqz-kxo-nskzyuj and prescription medicines only as told by your doctor. Ask your doctor if the medicine prescribed to you requires you to avoid driving or using machinery. Eating and drinking Drink enough fluid to keep your pee pale yellow. ?You may be told to drink at least 8 10 glasses of water each day. This will help you pass the stone. If told by your doctor, change your diet. You may be told to: ?Limit how much salt you eat. ?Eat more fruits and vegetables. ?Limit how much meat, poultry, fish, and eggs you eat. Follow instructions from your doctor about what you may eat and drink. General instructions Collect pee samples as told by your doctor. You may need to collect a pee sample: ?24 hours after a stone comes out. ?8 12 weeks after a stone comes out, and every 6 12 months after that. Strain your pee every time you pee. Use the strainer that your doctor recommends. Do not throw out the stone. Keep it so that it can be tested by your doctor. Keep all follow-up visits. You may need X-rays and ultrasounds to make sure the stone has come out. How is this prevented? To prevent another kidney stone: Drink enough fluid to keep your pee pale yellow. This is the best way to prevent kidney stones. Eat healthy foods. Avoid certain foods as told by your doctor. You may be told to eat less protein. Stay at a healthy weight. Where to find more information National Kidney Foundation (NKF): kidney.org Urology Care Foundation (UCF): urologyhealth.org Contact a doctor if: You have pain that gets worse or does not get better with medicine. Get help right away if: You have a fever or chills. You get very bad pain. You get new pain in your belly. You faint. You cannot pee. This information is not intended to replace advice given to you by your health care provider. Make sure you discuss any questions you have with your health care provider. Document Revised: 12/16/2022 Document Reviewed: 12/16/2022 iCAD Patient Education 2023 [employer]. Follow Up Care 04/21/2023 10:42:55 With:ALESSANDRO EGAN, Audi Felton, URL Address: [facility] [address] , [place] [address]- [phone] When: only if needed [facility] 04-29-2024 Note Patient Education Urology Kidney Stones Kidney stones are rock-like masses that form inside of the kidneys. Kidneys are organs that make pee (urine). A kidney stone may move into other parts of the urinary tract, including: ??? The tubes that connect the kidneys to the bladder (ureters). ??? The bladder. ??? The tube that carries urine out of the body (urethra). Kidney stones can cause very bad pain and can block the flow of pee. The stone usually leaves your body through your pee. A doctor may need to take out the stone. What are the causes? Kidney stones may be caused by: ??? Too much calcium in the body. This may be caused by too much parathyroid hormone in the blood. ??? Uric acid crystals in the bladder. The body makes uric acid when you eat certain foods. ??? Narrowing of one or both of the ureters. ??? A kidney blockage that you were born with. ??? Past surgery on the kidney or the ureters. What increases the risk? You are more likely to develop this condition if: ??? You have had a kidney stone in the past. ??? Other people in your family have had kidney stones. ??? You do not drink enough water. ??? You eat a diet that is high in protein, salt (sodium), or sugar. ??? You are very overweight (obese). What are the signs or symptoms? Symptoms of a kidney stone may include: ??? Pain in the side of the belly, right below the ribs. Pain usually spreads to the groin. ??? Needing to pee often or right away. ??? Pain when peeing. ??? Blood in your pee. ??? Feeling like you may vomit (nauseous). ??? Vomiting. ??? Fever and chills. How is this treated? Treatment depends on the size, location, and makeup of the kidney stones. The stones will often pass out of the body when you pee. You may need to: ??? Drink more fluid to help pass the stone. ? In some cases, you may be given fluids through an IV tube at the hospital. ??? Take medicine for pain. ??? Change your diet to help keep kidney stones from coming back. Sometimes, you may need: ??? A procedure to break up kidney stones using a beam of light (laser) or shock waves. ??? Surgery to remove the kidney stones. Follow these instructions at home: Medicines ??? Take ujjn-she-mgwilmi and prescription medicines only as told by your doctor. ??? Ask your doctor if the medicine prescribed to you requires you to avoid driving or using machinery. Eating and drinking ??? Drink enough fluid to keep your pee pale yellow. ? You may be told to drink at least 8?10 glasses of water each day. This will help you pass the stone. ??? If told by your doctor, change your diet. You may be told to: ? Limit how much salt you eat. ? Eat more fruits and vegetables. ? Limit how much meat, poultry, fish, and eggs you eat. ??? Follow instructions from your doctor about what you may eat and drink. General instructions ??? Collect pee samples as told by your doctor. You may need to collect a pee sample: ? 24 hours after a stone comes out. ? 8?12 weeks after a stone comes out, and every 6?12 months after that. ??? Strain your pee every time you pee. Use the strainer that your doctor recommends. ??? Do not throw out the stone. Keep it so that it can be tested by your doctor. ??? Keep all follow-up visits. You may need X-rays and ultrasounds to make sure the stone has come out. How is this prevented? To prevent another kidney stone: ??? Drink enough fluid to keep your pee pale yellow. This is the best way to prevent kidney stones. ??? Eat healthy foods. ??? Avoid certain foods as told by your doctor. You may be told to eat less protein. ??? Stay at a healthy weight. Where to find more information ??? National Kidney Foundation (NKF): kidney.org ??? Urology Care Foundation (UCF): urologyhealth.org Contact a doctor if: ??? You have pain that gets worse or does not get better with medicine. Get help right away if: ??? You have a fever or chills. ??? You get very bad pain. ??? You get new pain in your belly. ??? You faint. ??? You cannot pee. This information is not intended to replace advice given to you by your health care provider. Make sure you discuss any questions you have with your health care provider. Document Revised: 12/16/2022 Document Reviewed: 12/16/2022 iCAD Patient Education ? 2023 [employer]. [facility] 04-15-2024 History of Presen t illness Narrative Associated Problem(s): Well woman exam [...] the original note were not included. Ramin Lanier is a 34 y.o. female presents with [...] 2 times daily ALLERGIES: Allergies Allergen Reactions [place] Extract Hives Other Rash Penicillin G Rash [...] nursing note reviewed. Exam conducted with a floral design teacher present. Constitutional: General: She is not in [...] and sugary drinks. documented in this encounter [facility] 04-15-2024 Instructions Whit Ca NP - 04/15/2024 4:30 PM EST Monthly breast exam: card given PAP smear: results in 7-10 days, we will call with results Exercise 3-4 times week for 30 mimutes each Variety of fruits/veggies and lean proteins, calcium is important to for strong bones documented in this encounter [facility] 03-06-2024 History of Presen t illness Narrative General Surgery H&P Ramin Lanier 1990 Ramin Lanier is a 34 y.o. female presents with chief complaint of ventral/ incisional Hernia. Chief complaint of a large ventral hernia. She recently had a CT done that showed a [id number] left periumbilical hernia with mesentery and possible [...] Oral, 2 times daily Allergies Allergen Reactions [place] Extract Hives Other Rash Penicillin G Rash [...] Name Age of Onset COPD Father Isiah lanier Kidney disease Father Isiah lanier Cancer Maternal Grandmother Amanda lanier Drug abuse Sister Reta lanier Allergies Allergen Reactions [place] Extract Hives Other Rash Penicillin G Rash [...] referral appointment that will help. Thank you, Elma Kirkland DO documented in this encounter [facility] 03-05-2024 History of Presen t illness Narrative Associated Problem(s): Pre-diabetes A1c 5.5% Associated Problem(s): Ventral hernia without obstruction or gangrene See CT scan, questioned if element of strangulation This is now 15 days later, no NVD, bowels moving Will refer back to dr kirkland Associated Problem(s): Primary hypertension (CMS/HCC) Out of meds for a few weeks, they have been sent in to pharmacy Counseled pt on the importance of taking meds as directed, risks of non compliance: stroke, AK, Will cloth picker script Associated Problem(s): Pelvic pain Hx [...] the original note were not included. Ramin Lanier is a 34 y.o. female presents with chief complaint of No chief complaint on file. HPI: ER fu: see [facility] er notes for HPI, labs and [...] 2 times daily ALLERGIES: Allergies Allergen Reactions [place] Extract Hives Other Rash Penicillin G Rash [...] as directed, risks of non compliance: stroke, AK, Will cloth picker script Relevant Orders Basic metabolic panel Ventral hernia without obstruction or gangrene See CT scan, questioned if element of strangulation This is now 15 days later, no NVD, bowels moving Will refer back to dr kirkland Relevant Orders Ambulatory referral to General Surgery Pelvic pain Hx PCOS, will check pelvic US No pap in some time, will have her schedule this as well Relevant Orders US Pelvis w/ TV documented in this encounter [facility] 02-28-2024 History of Presen t illness Narrative Images from the original note were not included. No chief complaint on file. Subjective Ramin Lanier, 34 y.o., female being seen in Sleep [...] Name Age of Onset COPD Father Isiah lanier Kidney disease Father Isiah lanier Cancer Maternal Grandmother Amanda lanier Drug abuse Sister Reta lanier Social History Tobacco Use Smoking status: Former Current packs/day: 0.00 Average packs/day: 1.5 packs/day for 15.0 years (22.5 ttl pk-yrs) Types: Cigarettes Start date: 2005 Quit date: 2020 Years since quittin.8 Smokeless tobacco: Never Substance Use Topics Alcohol use: Not Currently Comment: caffine: coffee 2 daily and energy drink 2 weekly Allergies: [place] extract, Other, and Penicillin g General: No [...] was counseled on the risks of stroke, AK, and sudden with FLAVIO, along with the [...] clinic: 6 months documented in this encounter [facility] 01-30-2024 History of Presen t illness Narrative Associated Problem(s): Ventral hernia without obstruction or gangrene Advised s/s of incarceration and need to go to Er Associated Problem(s): FLAVIO (obstructive sleep apnea) Non compliant with PAP Explained importance of needing to wear this Associated Problem(s): Primary hypertension (CMS/HCC) No med dose changes Cont current meds Images from the original note were not included. Ramin Lanier is a 33 y.o. female presents with chief complaint of No chief complaint on file. HPI: Thinks has hernia abdominal: occ pain, no NV, no constipation Hypertension This is a chronic problem. The current episode started more than 1 year ago. The problem is unchanged. The problem is controlled. Pertinent negatives include no anxiety, blurred vision, chest pain, headaches, palpitations, peripheral edema or shortness of breath. Risk factors for coronary artery disease include obesity. Past treatments include beta blockers. The current treatment provides significant improvement. There are no compliance problems. SUBJECTIVE: MEDICATIONS: Current Outpatient Medications Medication Instructions busPIRone (BUSPAR) 5 mg, Oral, Every 12 hours PRN labetalol (NORMODYNE) 100 mg, Oral, 2 times daily ALLERGIES: Allergies Allergen Reactions [place] Extract Hives Other Rash Penicillin G Rash REVIEW OF SYMPTOMS: Review of Systems Constitutional: Negative for appetite change, chills and fever. HENT: Negative for congestion, ear pain and sore throat. Eyes: Negative for blurred vision, pain, discharge, redness and visual disturbance. Respiratory: Negative for cough, shortness of breath and wheezing. Cardiovascular: Negative for chest pain, palpitations and leg swelling. Gastrointestinal: Positive for abdominal pain. Negative for blood in stool, constipation, diarrhea, nausea and [...] in her father. OBJECTIVE: Visit Vitals BP 138/84 (BP Location: Left arm, Patient Position: Sitting, BP Cuff Size: Large adult long) Pulse 73 Temp 98.5 F (Temporal) Resp 18 Ht 5' 4 Wt 284 lb 9.6 oz SpO2 98% BMI 48.85 kg/m Smoking Status Former BSA 2.41 m Physical Exam Vitals and nursing note reviewed. Constitutional: General: She is not in acute distress. Appearance: Normal appearance. HENT: Head: Normocephalic and atraumatic. Right Ear: External ear normal. Left Ear: External ear normal. Nose: Nose normal. Mouth/Throat: Mouth: Mucous membranes are moist. Eyes: Extraocular Movements: Extraocular movements intact. Conjunctiva/sclera: Conjunctivae normal. Cardiovascular: Rate and Rhythm: Normal rate and regular rhythm. Pulses: Normal pulses. Heart sounds: Normal heart sounds. Pulmonary: Effort: Pulmonary effort is normal. Breath sounds: Normal breath sounds. Abdominal: General: Bowel sounds are normal. There is no distension. Palpations: Abdomen is soft. There is no mass. Tenderness: There is no abdominal tenderness. Hernia: A hernia (near umbilical region at 1-2 o clock, measures approx 3 x1.25 , reducible) is present. Musculoskeletal: General: Normal range of motion. Cervical back: Normal range of motion and neck supple. Skin: General: Skin is warm and dry. [...] file. Problem List Items Addressed This Visit Primary hypertension (CMS/HCC) - Primary No med dose changes Cont current meds FLAVIO (obstructive sleep apnea) Non compliant with PAP Explained importance of needing to wear this Morbid (severe) obesity due to excess calories (CMS/HCC) Ventral hernia without obstruction or gangrene Advised s/s of incarceration and need to go to Er documented in this encounter [facility] 04-21-2023 Hospital Discharg e instructions Patient Education 04/21/2023 10:37:14 Hematuria, Adult [...] Follow these instructions at home: Medicines Take pcmg-qez-ywqbist and prescription medicines only as told by [...] or the blood stops without treatment. Take vkqa-cjn-wiefiks and prescription medicines only as told by your health care provider. Drink enough fluid to keep your urine pale yellow. This information is not intended to replace advice given to you by your health care provider. Make sure you discuss any questions you have with your health care provider. Document Revised: 12/23/2020 Document Reviewed: 12/23/2020 iCAD Patient Education 2022 [employer]. Follow Up Care 05/23/2022 13:29:58 With:ALESSANDRO EGAN, Audi Felton, URL Address: [address] [place] [address]- When: Unknown [facility] 04-08-2022 Evaluation note Encounter Date Diagnosis Assessment [...] treatment plan. Patient left in stable condition [facility] Other 11-28-2022 Hospital Discharge instructions Patient Education [...] Follow these instructions at home: Medicines Take qyeu-ayt-qqhlugs and prescription medicines only as told by [...] or the blood stops without treatment. Take azbc-ndn-vffkoly and prescription medicines only as told by your health care provider. Drink enough fluid to keep your urine clear or pale yellow. This information is not intended to replace advice given to you by your health care provider. Make sure you discuss any questions you have with your health care provider. Document Released: 04/24/2006 Document Revised: 09/18/2019 Document Reviewed: 05/27/2017 iCAD Patient Education 2019 [employer]. Follow Up Care 03/01/2022 10:00:52 With:ALESSANDRO EGAN, Audi Felton, URL Address: [facility] [address] , [place] [address]- When: Unknown Comments:Schedule cysto, CTU [facility] 09-13-2022 Miscellaneous Notes* Telephone Encounter - Luciana Kline - 01/18/2022 10:29 AM EDT Sissy Brown MD P i A10 Scheduling Pool New PCOS patient for clinic Call to patient, no answer. Left voicemail for patient to call the office so that we may assist with scheduling and appointmentwith Dr. Kwan for PCOS clinic. [facility]line [facility] NoteHNO ID: [id number] Author: Taiwo Torres MD Service: ? Author [...] which included preparing to see the patient, [id number] patient care, completing clinical documentation, obtaining and/or reviewing separately obtained history, counseling and educating the patient/family/caregiver, and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 obesity due to excess calories (CMS/HCC) Ventral hernia without obstruction or gangrene Unspecified ventral hernia without mention of obstruction or gangrene Ventral hernia without obstruction or gangrene- Primary Unspecified ventral hernia without mention of obstruction or gangrene Pre-diabetes Other abnormal glucose Primary hypertension ([facility]/HCC) Unspecified essential hypertension Polycystic ovaries Pelvic pain Well woman exam with routine gynecological exam- Primary Routine gynecological examination Morbid (severe) obesity due to excess calories (CMS/[facility]) Major depressive disorder, single episode, moderate (HCC) ([facility])- Primary Major depressive disorder, single episode, moderate Morbid (severe) obesity due to excess calories ([facility]/HCC) Body mass index (BMI) 45.0-49.9, adult ([facility]) FLAVIO (obstructive sleep apnea) Obstructive sleep apnea (adult) (pediatric) Primary hypertension ([facility]) Unspecified essential hypertension PTSD (post-traumatic stress disorder) ([facility] Posttraumatic stress disorder Panic attack as reaction to stress ([facility]) Major depressive disorder, single episode, moderate (HCC) ([facility])- Primary Major depressive disorder, single episode, moderate FLAVIO (obstructive sleep apnea) Obstructive sleep apnea (adult) (pediatric) Primary hypertension ([facility]/HCC) Unspecified essential hypertension Ventral hernia without obstruction or gangrene Unspecified ventral hernia without mention of obstruction or gangrene Body mass index (BMI) 45.0-49.9, adult ([facility]) Morbid (severe) obesity due to excess calories ([facility]/HCC) Primary hypertension ([facility]/HCC)- Primary Unspecified essential hypertension FLAVIO (obstructive sleep apnea) Obstructive sleep apnea (adult) (pediatric) Morbid (severe) obesity due to excess calories ([facility]) Major depressive disorder, single episode, moderate with anxious distress (HCC) ([facility]) Major depressive disorder, single episode, moderate (HCC) ([facility]) Major depressive disorder, single episode, moderate Pain, dental documented in this encounter [facility]* Diagnosis RUQ pain- Primary Abdominal pain, right upper quadrant Pre-diabetes Other abnormal glucose Elevated blood pressure reading Elevated blood pressure reading without diagnosis of hypertension Morbid obesity (CMS/HCC) Morbid obesity Environmental and seasonal allergies Influenza B Influenza with other respiratory manifestations Primary hypertension ([facility]/HCC)- Primary Unspecified essential hypertension Morbid obesity ([facility]/HCC) Morbid obesity FLAVIO (obstructive sleep apnea) Obstructive [...] (severe) obesity due to excess calories (CMS/HCC) Major depressive disorder, single episode, moderate (HCC) (CMS/HCC)- Primary Major depressive disorder, single episode, moderate Morbid (severe) obesity due to excess calories (CMS/HCC) Body mass index (BMI) 45.0-49.9, adult (CMS/HCC) FLAVIO (obstructive sleep apnea) Obstructive sleep apnea (adult) (pediatric) Primary hypertension (CMS/HCC) Unspecified essential hypertension PTSD (post-traumatic stress disorder) (CMS/HCC) Posttraumatic stress disorder Panic attack as reaction to stress (CMS/HCC) Major depressive disorder, single episode, moderate (HCC) (CMS/HCC)- Primary Major depressive disorder, single episode, moderate FLAVIO (obstructive sleep apnea) Obstructive sleep apnea (adult) (pediatric) Primary hypertension (CMS/HCC) Unspecified essential hypertension Ventral hernia without obstruction or gangrene Unspecified ventral hernia without mention of obstruction or gangrene Body mass index (BMI) 45.0-49.9, adult (CMS/HCC) Morbid (severe) obesity due to excess calories (CMS/HCC) Primary hypertension (CMS/HCC)- Primary Unspecified essential hypertension FLAVIO (obstructive sleep apnea) Obstructive sleep apnea (adult) (pediatric) Morbid (severe) obesity due to excess calories (CMS/HCC) Major depressive disorder, single episode, moderate with anxious distress (HCC) (CMS/HCC) Major depressive disorder, single episode, moderate (HCC) (CMS/HCC) Major depressive disorder, single episode, moderate Pain, dental FLAVIO (obstructive sleep apnea)- Primary Obstructive sleep apnea (adult) (pediatric) Hypersomnia Hypersomnia, unspecified Snoring Other dyspnea and respiratory abnormality documented in this encounter [facility]* [...] (severe) obesity due to excess calories (CMS/HCC) Major depressive disorder, single episode, moderate (HCC) (CMS/HCC)- Primary Major depressive disorder, single episode, moderate Morbid (severe) obesity due to excess calories (CMS/HCC) Body mass index (BMI) 45.0-49.9, adult (CMS/HCC) FLAVIO (obstructive sleep apnea) Obstructive sleep apnea (adult) (pediatric) Primary hypertension (CMS/HCC) Unspecified essential hypertension PTSD (post-traumatic stress disorder) (CMS/HCC) Posttraumatic stress disorder Panic attack as reaction to stress (CMS/HCC) Major depressive disorder, single episode, moderate (HCC) (CMS/HCC)- Primary Major depressive disorder, single episode, moderate FLAVIO (obstructive sleep apnea) Obstructive sleep apnea (adult) (pediatric) Primary hypertension (CMS/HCC) Unspecified essential hypertension Ventral hernia without obstruction or gangrene Unspecified ventral hernia without mention of obstruction or gangrene Body mass index (BMI) 45.0-49.9, adult (CMS/HCC) Morbid (severe) obesity due to excess calories (CMS/HCC) Primary hypertension (CMS/HCC)- Primary Unspecified essential hypertension FLAVIO (obstructive sleep apnea) Obstructive sleep apnea (adult) (pediatric) Morbid (severe) obesity due to excess calories (CMS/HCC) Major depressive disorder, single episode, moderate with anxious distress (HCC) (CMS/HCC) Major depressive disorder, single episode, moderate (HCC) (CMS/HCC) Major depressive disorder, single episode, moderate Pain, dental PTSD (post-traumatic stress disorder) (CMS/HCC)- Primary Posttraumatic stress disorder Major depressive disorder, single episode, moderate with anxious distress (HCC) (CMS/HCC) documented in this encounter [facility]* [...] (severe) obesity due to excess calories (CMS/HCC) Major depressive disorder, single episode, moderate (HCC) ([facility])- Primary Major depressive disorder, single episode, moderate Morbid (severe) obesity due to excess calories (CMS/[facility]) Body mass index (BMI) 45.0-49.9, adult (CMS/[facility]) FLAVIO (obstructive sleep apnea) Obstructive sleep apnea (adult) (pediatric) Primary hypertension (CMS/HCC) Unspecified essential hypertension PTSD (post-traumatic stress disorder) ([facility]) Posttraumatic stress disorder Panic attack as reaction to stress ([facility]) Major depressive disorder, single episode, moderate (HCC) ([facility])- Primary Major depressive disorder, single episode, moderate FLAVIO (obstructive sleep apnea) Obstructive sleep apnea (adult) (pediatric) Primary hypertension (CMS/HCC) Unspecified essential hypertension Ventral hernia without obstruction or gangrene Unspecified ventral hernia without mention of obstruction or gangrene Body mass index (BMI) 45.0-49.9, adult ([facility]) Morbid (severe) obesity due to excess calories (CMS/[facility]) Primary hypertension ([facility]/HCC)- Primary Unspecified essential hypertension FLAVIO (obstructive sleep apnea) Obstructive sleep apnea (adult) (pediatric) Morbid (severe) obesity due to excess calories ([facility]/HCC) Major depressive disorder, single episode, moderate with anxious distress (HCC) (CMS/[facility]) Major depressive disorder, single episode, moderate (HCC) ([facility]) Major depressive disorder, single episode, moderate Pain, dental PTSD (post-traumatic stress disorder) ([facility]) Posttraumatic stress disorder Major depressive disorder, single episode, moderate with anxious distress (HCC) ([facility]) documented in this encounter [facility]* Diagnosis RUQ pain- Primary Abdominal pain, right upper quadrant Pre-diabetes Other abnormal glucose Elevated blood pressure reading Elevated blood pressure reading without diagnosis of hypertension Morbid obesity ([facility]/HCC) Morbid obesity Environmental and seasonal allergies Influenza B Influenza with other respiratory manifestations Primary hypertension ([facility])- Primary Unspecified essential hypertension Morbid obesity ([facility]/HCC) Morbid obesity FLAVIO (obstructive sleep apnea) Obstructive sleep apnea (adult) (pediatric) Primary hypertension ([facility]/HCC)- Primary Unspecified essential hypertension Morbid obesity ([facility]/HCC) Morbid obesity FLAVIO (obstructive sleep apnea) Obstructive sleep apnea (adult) (pediatric) Primary hypertension ([facility]/HCC)- Primary Unspecified essential hypertension Panic attack as reaction to stress (CMS/[facility]) Primary hypertension ([facility]/HCC)- Primary Unspecified essential hypertension Morbid (severe) obesity due to excess calories ([facility]) Body mass index (BMI) 50.0-59.9, adult ([facility]) Panic attack as reaction to stress ([facility] Primary hypertension ([facility])- Primary Unspecified essential hypertension FLAVIO (obstructive sleep apnea) Obstructive sleep apnea (adult) (pediatric) Morbid (severe) obesity due to excess calories ([facility]) Ventral hernia without obstruction or gangrene Unspecified ventral hernia without mention of obstruction or gangrene Ventral hernia without obstruction or gangrene- Primary Unspecified ventral hernia without mention of obstruction or gangrene Pre-diabetes Other abnormal glucose Primary hypertension ([facility]) Unspecified essential hypertension Polycystic ovaries Pelvic pain Well woman exam with routine gynecological exam- Primary Routine gynecological examination Morbid (severe) obesity due to excess calories ([facility]) Major depressive disorder, single episode, moderate (HCC) ([facility])- Primary Major depressive disorder, single episode, moderate Morbid (severe) obesity due to excess calories ([facility]) Body mass index (BMI) 45.0-49.9, adult ([facility]) FLAVIO (obstructive sleep apnea) Obstructive sleep apnea (adult) (pediatric) Primary hypertension ([facility]) Unspecified essential hypertension PTSD (post-traumatic stress disorder) ([facility] Posttraumatic stress disorder Panic attack as reaction to stress ([facility]) Major depressive disorder, single episode, moderate (HCC) ([facility])- Primary Major depressive disorder, single episode, moderate FLAVIO (obstructive sleep apnea) Obstructive sleep apnea (adult) (pediatric) Primary hypertension ([facility]) Unspecified essential hypertension Ventral hernia without obstruction or gangrene Unspecified ventral hernia without mention of obstruction or gangrene Body mass index (BMI) 45.0-49.9, adult (CMS/HCC) Morbid (severe) obesity due to excess calories (CMS/HCC) Primary hypertension (CMS/HCC)- Primary Unspecified essential hypertension FLAVIO (obstructive sleep apnea) Obstructive sleep apnea (adult) (pediatric) Morbid (severe) obesity due to excess calories (CMS/HCC) Major depressive disorder, single episode, moderate with anxious distress (HCC) (CMS/HCC) Major depressive disorder, single episode, moderate (HCC) (CMS/HCC) Major depressive disorder, single episode, moderate Pain, dental PTSD (post-traumatic stress disorder) (CMS/HCC) Posttraumatic stress disorder Major depressive disorder, single episode, moderate with anxious distress (HCC) (CMS/HCC) documented in this encounter [facility]* [...] (severe) obesity due to excess calories (CMS/HCC) Major depressive disorder, single episode, moderate (HCC) (CMS/HCC)- Primary Major depressive disorder, single episode, moderate Morbid (severe) obesity due to excess calories (CMS/HCC) Body mass index (BMI) 45.0-49.9, adult (CMS/HCC) FLAVIO (obstructive sleep apnea) Obstructive sleep apnea (adult) (pediatric) Primary hypertension (CMS/HCC) Unspecified essential hypertension PTSD (post-traumatic stress disorder) (CMS/HCC) Posttraumatic stress disorder Panic attack as reaction to stress (CMS/HCC) Major depressive disorder, single episode, moderate (HCC) (CMS/HCC)- Primary Major depressive disorder, single episode, moderate FLAVIO (obstructive sleep apnea) Obstructive sleep apnea (adult) (pediatric) Primary hypertension (CMS/HCC) Unspecified essential hypertension Ventral hernia without obstruction or gangrene Unspecified ventral hernia without mention of obstruction or gangrene Body mass index (BMI) 45.0-49.9, adult (CMS/HCC) Morbid (severe) obesity due to excess calories (CMS/HCC) Primary hypertension ([facility]/HCC)- Primary Unspecified essential hypertension FLAVIO (obstructive sleep apnea) Obstructive sleep apnea (adult) (pediatric) Morbid (severe) obesity due to excess calories (CMS/HCC) Major depressive disorder, single episode, moderate with anxious distress (HCC) (CMS/HCC) Major depressive disorder, single episode, moderate (HCC) (CMS/HCC) Major depressive disorder, single episode, moderate Pain, dental PTSD (post-traumatic stress disorder) ([facility]) Posttraumatic stress disorder Major depressive disorder, single episode, moderate with anxious distress (HCC) ([facility]) Work-related stress Other occupational circumstances or maladjustment documented in this encounter [facility]* Diagnosis RUQ pain- Primary Abdominal pain, right upper quadrant Pre-diabetes Other abnormal glucose Elevated blood pressure reading Elevated blood pressure reading without diagnosis of hypertension Morbid obesity (CMS-HCC) Morbid obesity Environmental and seasonal allergies Influenza B Influenza with other respiratory manifestations Primary hypertension- Primary Unspecified essential hypertension Morbid obesity (CMS-HCC) Morbid obesity FLAVIO (obstructive sleep apnea) Obstructive sleep apnea (adult) (pediatric) Primary hypertension- Primary Unspecified essential hypertension Morbid obesity ([facility]-HCC) Morbid obesity FLAVIO (obstructive sleep apnea) Obstructive sleep apnea (adult) (pediatric) Primary hypertension- Primary Unspecified essential hypertension Panic attack as reaction to stress Primary hypertension- Primary Unspecified essential hypertension Morbid (severe) obesity due to excess calories ([facility]-HCC) Body mass index (BMI) 50.0-59.9, adult ([facility]-HCC) Panic attack as reaction to stress Primary hypertension- Primary Unspecified essential hypertension FLAVIO (obstructive sleep apnea) Obstructive sleep apnea (adult) (pediatric) Morbid (severe) obesity due to excess calories (CMS-HCC) Ventral hernia without obstruction or gangrene Unspecified ventral hernia without mention of obstruction or gangrene Ventral hernia without obstruction or gangrene- Primary Unspecified ventral hernia without mention of obstruction or gangrene Pre-diabetes Other abnormal glucose Primary hypertension Unspecified essential hypertension Polycystic ovaries Pelvic pain Well woman exam with routine gynecological exam- Primary Routine gynecological examination Morbid (severe) obesity due to excess calories (CMS-HCC) Major depressive disorder, single episode, moderate (HCC)- Primary Major depressive disorder, single episode, moderate Morbid (severe) obesity due to excess calories (CMS-HCC) Body mass index (BMI) 45.0-49.9, adult ([facility]) FLAVIO (obstructive sleep apnea) Obstructive sleep apnea (adult) (pediatric) Primary hypertension Unspecified essential hypertension PTSD (post-traumatic stress disorder) Posttraumatic stress disorder Panic attack as reaction to stress Major depressive disorder, single episode, moderate (HCC)- Primary Major depressive disorder, single episode, moderate FLAVIO (obstructive sleep apnea) Obstructive sleep apnea (adult) (pediatric) Primary hypertension Unspecified essential hypertension Ventral hernia without obstruction or gangrene Unspecified ventral hernia without mention of obstruction or gangrene Body mass index (BMI) 45.0-49.9, adult ([facility]) Morbid (severe) obesity due to excess calories ([facility]) Primary hypertension- Primary Unspecified essential hypertension FLAVIO (obstructive sleep apnea) Obstructive sleep apnea (adult) (pediatric) Morbid (severe) obesity due to excess calories ([facility]) Major depressive disorder, single episode, moderate with anxious distress (HCC) Major depressive disorder, single episode, moderate (HCC) Major depressive disorder, single episode, moderate Pain, dental Major depressive disorder, single episode, moderate with anxious distress (HCC) PTSD (post-traumatic stress disorder) Posttraumatic stress disorder documented in this encounter [facility]* Diagnosis RUQ pain- Primary Abdominal pain, right upper quadrant Pre-diabetes Other abnormal glucose Elevated blood pressure reading Elevated blood pressure reading without diagnosis of hypertension Morbid obesity (CMS-HCC) Morbid obesity Environmental and seasonal allergies Influenza B Influenza with other respiratory manifestations Primary hypertension- Primary Unspecified essential hypertension Morbid obesity ([facility]) Morbid obesity FLAVIO (obstructive sleep apnea) Obstructive sleep apnea (adult) (pediatric) Primary hypertension- Primary Unspecified essential hypertension Morbid obesity ([facility]) Morbid obesity FLAVIO (obstructive sleep apnea) Obstructive sleep apnea (adult) (pediatric) Primary hypertension- Primary Unspecified essential hypertension Panic attack as reaction to stress Primary hypertension- Primary Unspecified essential hypertension Morbid (severe) obesity due to excess calories ([facility]) Body mass index (BMI) 50.0-59.9, adult ([facility]) Panic attack as reaction to stress Primary hypertension- Primary Unspecified essential hypertension FLAVIO (obstructive sleep apnea) Obstructive sleep apnea (adult) (pediatric) Morbid (severe) obesity due to excess calories ([facility]) Ventral hernia without obstruction or gangrene Unspecified ventral hernia without mention of obstruction or gangrene Ventral hernia without obstruction or gangrene- Primary Unspecified ventral hernia without mention of obstruction or gangrene Pre-diabetes Other abnormal glucose Primary hypertension Unspecified essential hypertension Polycystic ovaries Pelvic pain Well woman exam with routine gynecological exam- Primary Routine gynecological examination Morbid (severe) obesity due to excess calories ([facility]) Major depressive disorder, single episode, moderate ([facility])- Primary Major depressive disorder, single episode, moderate Morbid (severe) obesity due to excess calories ([facility]) Body mass index (BMI) 45.0-49.9, adult ([facility]) FLAVIO (obstructive sleep apnea) Obstructive sleep apnea (adult) (pediatric) Primary hypertension Unspecified essential hypertension PTSD (post-traumatic stress disorder) Posttraumatic stress disorder Panic attack as reaction to stress Major depressive disorder, single episode, moderate (HCC)- Primary Major depressive disorder, single episode, moderate FLAVIO (obstructive sleep apnea) Obstructive sleep apnea (adult) (pediatric) Primary hypertension Unspecified essential hypertension Ventral hernia without obstruction or gangrene Unspecified ventral hernia without mention of obstruction or gangrene Body mass index (BMI) 45.0-49.9, adult ([facility]) Morbid (severe) obesity due to excess calories ([facility]) Primary hypertension- Primary Unspecified essential hypertension FLAVIO (obstructive sleep apnea) Obstructive sleep apnea (adult) (pediatric) Morbid (severe) obesity due to excess calories ([facility]) Major depressive disorder, single episode, moderate with anxious distress (HCC) Major depressive disorder, single episode, moderate (HCC) Major depressive disorder, single episode, moderate Pain, dental PTSD (post-traumatic stress disorder) Posttraumatic stress disorder Major depressive disorder, single episode, moderate with anxious distress (HCC) documented in this encounter [facility]* Diagnosis RUQ pain- Primary Abdominal pain, right upper quadrant Pre-diabetes Other abnormal glucose Elevated blood pressure reading Elevated blood pressure reading without diagnosis of hypertension Morbid obesity ([facility]) Morbid obesity Environmental and seasonal allergies Influenza B Influenza with other respiratory manifestations Primary hypertension- Primary Unspecified essential hypertension Morbid obesity ([facility]) Morbid obesity FLAVIO (obstructive sleep apnea) Obstructive sleep apnea (adult) (pediatric) Primary hypertension- Primary Unspecified essential hypertension Morbid obesity ([facility]) Morbid obesity FLAVIO (obstructive sleep apnea) Obstructive sleep apnea (adult) (pediatric) Primary hypertension- Primary Unspecified essential hypertension Panic attack as reaction to stress Primary hypertension- Primary Unspecified essential hypertension Morbid (severe) obesity due to excess calories ([facility]) Body mass index (BMI) 50.0-59.9, adult ([facility]) Panic attack as reaction to stress Primary hypertension- Primary Unspecified essential hypertension FLAVIO (obstructive sleep apnea) Obstructive sleep apnea (adult) (pediatric) Morbid (severe) obesity due to excess calories ([facility]) Ventral hernia without obstruction or gangrene Unspecified ventral hernia without mention of obstruction or gangrene Ventral hernia without obstruction or gangrene- Primary Unspecified ventral hernia without mention of obstruction or gangrene Pre-diabetes Other abnormal glucose Primary hypertension Unspecified essential hypertension Polycystic ovaries Pelvic pain Well woman exam with routine gynecological exam- Primary Routine gynecological examination Morbid (severe) obesity due to excess calories ([facility]) Major depressive disorder, single episode, moderate (HCC)- Primary Major depressive disorder, single episode, moderate Morbid (severe) obesity due to excess calories ([facility]) Body mass index (BMI) 45.0-49.9, adult ([facility]) FLAVIO (obstructive sleep apnea) Obstructive sleep apnea (adult) (pediatric) Primary hypertension Unspecified essential hypertension PTSD (post-traumatic stress disorder) Posttraumatic stress disorder Panic attack as reaction to stress Major depressive disorder, single episode, moderate (HCC)- Primary Major depressive disorder, single episode, moderate FLAVIO (obstructive sleep apnea) Obstructive sleep apnea (adult) (pediatric) Primary hypertension Unspecified essential hypertension Ventral hernia without obstruction or gangrene Unspecified ventral hernia without mention of obstruction or gangrene Body mass index (BMI) 45.0-49.9, adult ([facility]) Morbid (severe) obesity due to excess calories ([facility]) Primary hypertension- Primary Unspecified essential hypertension FLAVIO (obstructive sleep apnea) Obstructive sleep apnea (adult) (pediatric) Morbid (severe) obesity due to excess calories (CMS-HCC) Major depressive disorder, single episode, moderate with anxious distress (HCC) Major depressive disorder, single episode, moderate (HCC) Major depressive disorder, single episode, moderate Pain, dental PTSD (post-traumatic stress disorder) Posttraumatic stress disorder Major depressive disorder, single episode, moderate with anxious distress (HCC) Work-related stress Other occupational circumstances or maladjustment documented in this encounter [facility]* Diagnosis RUQ pain- Primary Abdominal pain, right upper quadrant Pre-diabetes Other abnormal glucose Elevated blood pressure reading Elevated blood pressure reading without diagnosis of hypertension Morbid obesity (CMS-HCC) Morbid obesity Environmental and seasonal allergies Influenza B Influenza with other respiratory manifestations Primary hypertension- Primary Unspecified essential hypertension Morbid obesity ([facility]) Morbid obesity FLAVIO (obstructive sleep apnea) Obstructive sleep apnea (adult) (pediatric) Primary hypertension- Primary Unspecified essential hypertension Morbid obesity ([facility]) Morbid obesity FLAVIO (obstructive sleep apnea) Obstructive sleep apnea (adult) (pediatric) Primary hypertension- Primary Unspecified essential hypertension Panic attack as reaction to stress Primary hypertension- Primary Unspecified essential hypertension Morbid (severe) obesity due to excess calories ([facility]) Body mass index (BMI) 50.0-59.9, adult ([facility]) Panic attack as reaction to stress Primary hypertension- Primary Unspecified essential hypertension FLAVIO (obstructive sleep apnea) Obstructive sleep apnea (adult) (pediatric) Morbid (severe) obesity due to excess calories ([facility]) Ventral hernia without obstruction or gangrene Unspecified ventral hernia without mention of obstruction or gangrene Ventral hernia without obstruction or gangrene- Primary Unspecified ventral hernia without mention of obstruction or gangrene Pre-diabetes Other abnormal glucose Primary hypertension Unspecified essential hypertension Polycystic ovaries Pelvic pain Well woman exam with routine gynecological exam- Primary Routine gynecological examination Morbid (severe) obesity due to excess calories (CMS-HCC) Major depressive disorder, single episode, moderate (HCC)- Primary Major depressive disorder, single episode, moderate Morbid (severe) obesity due to excess calories ([facility]) Body mass index (BMI) 45.0-49.9, adult ([facility]) FLAVIO (obstructive sleep apnea) Obstructive sleep apnea (adult) (pediatric) Primary hypertension Unspecified essential hypertension PTSD (post-traumatic stress disorder) Posttraumatic stress disorder Panic attack as reaction to stress Major depressive disorder, single episode, moderate (HCC)- Primary Major depressive disorder, single episode, moderate FLAVIO (obstructive sleep apnea) Obstructive sleep apnea (adult) (pediatric) Primary hypertension Unspecified essential hypertension Ventral hernia without obstruction or gangrene Unspecified ventral hernia without mention of obstruction or gangrene Body mass index (BMI) 45.0-49.9, adult ([facility]) Morbid (severe) obesity due to excess calories ([facility]) Primary hypertension- Primary Unspecified essential hypertension FLAVIO (obstructive sleep apnea) Obstructive sleep apnea (adult) (pediatric) Morbid (severe) obesity due to excess calories ([facility]) Major depressive disorder, single episode, moderate with anxious distress (HCC) Major depressive disorder, single episode, moderate (HCC) Major depressive disorder, single episode, moderate Pain, dental Primary hypertension- Primary Unspecified essential hypertension FLAVIO (obstructive sleep apnea) Obstructive sleep apnea (adult) (pediatric) Morbid (severe) obesity due to excess calories ([facility]) Pre-diabetes Other abnormal glucose Panic attack as reaction to stress PTSD (post-traumatic stress disorder) Posttraumatic stress disorder Major depressive disorder, single episode, moderate with anxious distress (HCC) Epistaxis Erythema ab igne Erythema due to burn (first degree), unspecified site documented in this encounter [facility]* Diagnosis RUQ pain- Primary Abdominal pain, right upper quadrant Pre-diabetes Other abnormal glucose Elevated blood pressure reading Elevated blood pressure reading without diagnosis of hypertension Morbid obesity ([facility]) Morbid obesity Environmental and seasonal allergies Influenza B Influenza with other respiratory manifestations Primary hypertension- Primary Unspecified essential hypertension Morbid obesity ([facility]) Morbid obesity FLAVIO (obstructive sleep apnea) Obstructive sleep apnea (adult) (pediatric) Primary hypertension- Primary Unspecified essential hypertension Morbid obesity ([facility]) Morbid obesity FLAVIO (obstructive sleep apnea) Obstructive sleep apnea (adult) (pediatric) Primary hypertension- Primary Unspecified essential hypertension Panic attack as reaction to stress Primary hypertension- Primary Unspecified essential hypertension Morbid (severe) obesity due to excess calories ([facility]) Body mass index (BMI) 50.0-59.9, adult ([facility]) Panic attack as reaction to stress Primary hypertension- Primary Unspecified essential hypertension FLAVIO (obstructive sleep apnea) Obstructive sleep apnea (adult) (pediatric) Morbid (severe) obesity due to excess calories ([facility]) Ventral hernia without obstruction or gangrene Unspecified ventral hernia without mention of obstruction or gangrene Ventral hernia without obstruction or gangrene- Primary Unspecified ventral hernia without mention of obstruction or gangrene Pre-diabetes Other abnormal glucose Primary hypertension Unspecified essential hypertension Polycystic ovaries Pelvic pain Well woman exam with routine gynecological exam- Primary Routine gynecological examination Morbid (severe) obesity due to excess calories ([facility]) Major depressive disorder, single episode, moderate ([facility])- Primary Major depressive disorder, single episode, moderate Morbid (severe) obesity due to excess calories ([facility]) Body mass index (BMI) 45.0-49.9, adult ([facility]) FLAVIO (obstructive sleep apnea) Obstructive sleep apnea (adult) (pediatric) Primary hypertension Unspecified essential hypertension PTSD (post-traumatic stress disorder) Posttraumatic stress disorder Panic attack as reaction to stress Major depressive disorder, single episode, moderate (HCC)- Primary Major depressive disorder, single episode, moderate FLAVIO (obstructive sleep apnea) Obstructive sleep apnea (adult) (pediatric) Primary hypertension Unspecified essential hypertension Ventral hernia without obstruction or gangrene Unspecified ventral hernia without mention of obstruction or gangrene Body mass index (BMI) 45.0-49.9, adult ([facility]) Morbid (severe) obesity due to excess calories ([facility]) Primary hypertension- Primary Unspecified essential hypertension FLAVIO (obstructive sleep apnea) Obstructive sleep apnea (adult) (pediatric) Morbid (severe) obesity due to excess calories ([facility]) Major depressive disorder, single episode, moderate with anxious distress (HCC) Major depressive disorder, single episode, moderate (HCC) Major depressive disorder, single episode, moderate Pain, dental Primary hypertension- Primary Unspecified essential hypertension FLAVIO (obstructive sleep apnea) Obstructive sleep apnea (adult) (pediatric) Morbid (severe) obesity due to excess calories ([facility]) Pre-diabetes Other abnormal glucose Panic attack as reaction to stress PTSD (post-traumatic stress disorder) Posttraumatic stress disorder Major depressive disorder, single episode, moderate with anxious distress (HCC) Epistaxis Erythema ab igne Erythema due to burn (first degree), unspecified site PTSD (post-traumatic stress disorder) Posttraumatic stress disorder Major depressive disorder, single episode, moderate with anxious distress (HCC) Work-related stress Other occupational circumstances or maladjustment documented in this encounter [facility]* Diagnosis RUQ pain- Primary Abdominal pain, right upper quadrant Pre-diabetes Other abnormal glucose Elevated blood pressure reading Elevated blood pressure reading without diagnosis of hypertension Morbid obesity ([facility]) Morbid obesity Environmental and seasonal allergies Influenza B Influenza with other respiratory manifestations Primary hypertension- Primary Unspecified essential hypertension Morbid obesity ([facility]) Morbid obesity FLAVIO (obstructive sleep apnea) Obstructive sleep apnea (adult) (pediatric) Primary hypertension- Primary Unspecified essential hypertension Morbid obesity (CMS-HCC) Morbid obesity FLAVIO (obstructive sleep apnea) Obstructive sleep apnea (adult) (pediatric) Primary hypertension- Primary Unspecified essential hypertension Panic attack as reaction to stress Primary hypertension- Primary Unspecified essential hypertension Morbid (severe) obesity due to excess calories ([facility]) Body mass index (BMI) 50.0-59.9, adult ([facility]) Panic attack as reaction to stress Primary hypertension- Primary Unspecified essential hypertension FLAVIO (obstructive sleep apnea) Obstructive sleep apnea (adult) (pediatric) Morbid (severe) obesity due to excess calories ([facility]) Ventral hernia without obstruction or gangrene Unspecified ventral hernia without mention of obstruction or gangrene Ventral hernia without obstruction or gangrene- Primary Unspecified ventral hernia without mention of obstruction or gangrene Pre-diabetes Other abnormal glucose Primary hypertension Unspecified essential hypertension Polycystic ovaries Pelvic pain Well woman exam with routine gynecological exam- Primary Routine gynecological examination Morbid (severe) obesity due to excess calories ([facility]) Major depressive disorder, single episode, moderate (HCC)- Primary Major depressive disorder, single episode, moderate Morbid (severe) obesity due to excess calories ([facility]) Body mass index (BMI) 45.0-49.9, adult ([facility]) FLAVIO (obstructive sleep apnea) Obstructive sleep apnea (adult) (pediatric) Primary hypertension Unspecified essential hypertension PTSD (post-traumatic stress disorder) Posttraumatic stress disorder Panic attack as reaction to stress Major depressive disorder, single episode, moderate (HCC)- Primary Major depressive disorder, single episode, moderate FLAVIO (obstructive sleep apnea) Obstructive sleep apnea (adult) (pediatric) Primary hypertension Unspecified essential hypertension Ventral hernia without obstruction or gangrene Unspecified ventral hernia without mention of obstruction or gangrene Body mass index (BMI) 45.0-49.9, adult ([facility]) Morbid (severe) obesity due to excess calories ([facility]) Primary hypertension- Primary Unspecified essential hypertension FLAVIO (obstructive sleep apnea) Obstructive sleep apnea (adult) (pediatric) Morbid (severe) obesity due to excess calories ([facility]) Major depressive disorder, single episode, moderate with anxious distress (HCC) Major depressive disorder, single episode, moderate (HCC) Major depressive disorder, single episode, moderate Pain, dental Primary hypertension- Primary Unspecified essential hypertension FLAVIO (obstructive sleep apnea) Obstructive sleep apnea (adult) (pediatric) Morbid (severe) obesity due to excess calories ([facility]) Pre-diabetes Other abnormal glucose Panic attack as reaction to stress PTSD (post-traumatic stress disorder) Posttraumatic stress disorder Major depressive disorder, single episode, moderate with anxious distress (HCC) Epistaxis Erythema ab igne Erythema due to burn (first degree), unspecified site PTSD (post-traumatic stress disorder) Posttraumatic stress disorder Major depressive disorder, single episode, moderate with anxious distress (HCC) Work-related stress Other occupational circumstances or maladjustment documented in this encounter [facility] HealthcareEvaluation note* Diagnosis RUQ pain- Primary Abdominal pain, right upper quadrant Pre-diabetes Other abnormal glucose Elevated blood pressure reading Elevated blood pressure reading without diagnosis of hypertension Morbid obesity ([facility]) Morbid obesity Environmental and seasonal allergies Influenza B Influenza with other respiratory manifestations Primary hypertension- Primary Unspecified essential hypertension Morbid obesity ([facility]) Morbid obesity FLAVIO (obstructive sleep apnea) Obstructive sleep apnea (adult) (pediatric) Primary hypertension- Primary Unspecified essential hypertension Morbid obesity ([facility]) Morbid obesity FLAVIO (obstructive sleep apnea) Obstructive sleep apnea (adult) (pediatric) Primary hypertension- Primary Unspecified essential hypertension Panic attack as reaction to stress Primary hypertension- Primary Unspecified essential hypertension Morbid (severe) obesity due to excess calories ([facility]) Body mass index (BMI) 50.0-59.9, adult ([facility]) Panic attack as reaction to stress Primary hypertension- Primary Unspecified essential hypertension FLAVIO (obstructive sleep apnea) Obstructive sleep apnea (adult) (pediatric) Morbid (severe) obesity due to excess calories ([facility]) Ventral hernia without obstruction or gangrene Unspecified ventral hernia without mention of obstruction or gangrene Ventral hernia without obstruction or gangrene- Primary Unspecified ventral hernia without mention of obstruction or gangrene Pre-diabetes Other abnormal glucose Primary hypertension Unspecified essential hypertension Polycystic ovaries Pelvic pain Well woman exam with routine gynecological exam- Primary Routine gynecological examination Morbid (severe) obesity due to excess calories (CMS-HCC) Major depressive disorder, single episode, moderate (HCC)- Primary Major depressive disorder, single episode, moderate Morbid (severe) obesity due to excess calories (CMS-HCC) Body mass index (BMI) 45.0-49.9, adult ([facility]) FLAVIO (obstructive sleep apnea) Obstructive sleep apnea (adult) (pediatric) Primary hypertension Unspecified essential hypertension PTSD (post-traumatic stress disorder) Posttraumatic stress disorder Panic attack as reaction to stress Major depressive disorder, single episode, moderate (HCC)- Primary Major depressive disorder, single episode, moderate FLAVIO (obstructive sleep apnea) Obstructive sleep apnea (adult) (pediatric) Primary hypertension Unspecified essential hypertension Ventral hernia without obstruction or gangrene Unspecified ventral hernia without mention of obstruction or gangrene Body mass index (BMI) 45.0-49.9, adult (CMS-HCC) Morbid (severe) obesity due to excess calories (CMS-HCC) Primary hypertension- Primary Unspecified essential hypertension FLAVIO (obstructive sleep apnea) Obstructive sleep apnea (adult) (pediatric) Morbid (severe) obesity due to excess calories (CMS-HCC) Major depressive disorder, single episode, moderate with anxious distress (HCC) Major depressive disorder, single episode, moderate (HCC) Major depressive disorder, single episode, moderate Pain, dental Primary hypertension- Primary Unspecified essential hypertension FLAVIO (obstructive sleep apnea) Obstructive sleep apnea (adult) (pediatric) Morbid (severe) obesity due to excess calories (CMS-HCC) Pre-diabetes Other abnormal glucose Panic attack as reaction to stress PTSD (post-traumatic stress disorder) Posttraumatic stress disorder Major depressive disorder, single episode, moderate with anxious distress (HCC) Epistaxis Erythema ab igne Erythema due to burn (first degree), unspecified site Streptococcal pharyngitis- Primary Streptococcal sore throat Pharyngitis, unspecified etiology Cough, unspecified type documented in this encounter [facility] HealthcareEvaluation note* Diagnosis RUQ pain- Primary Abdominal pain, right upper quadrant Pre-diabetes Other abnormal glucose Elevated blood pressure reading Elevated blood pressure reading without diagnosis of hypertension Morbid obesity (CMS-HCC) Morbid obesity Environmental and seasonal allergies Influenza B Influenza with other respiratory manifestations Primary hypertension- Primary Unspecified essential hypertension Morbid obesity (CMS-HCC) Morbid obesity FLAVIO (obstructive sleep apnea) Obstructive sleep apnea (adult) (pediatric) Primary hypertension- Primary Unspecified essential hypertension Morbid obesity ([facility]) Morbid obesity FLAVIO (obstructive sleep apnea) Obstructive sleep apnea (adult) (pediatric) Primary hypertension- Primary Unspecified essential hypertension Panic attack as reaction to stress Primary hypertension- Primary Unspecified essential hypertension Morbid (severe) obesity due to excess calories (CMS-HCC) Body mass index (BMI) 50.0-59.9, adult ([facility]) Panic attack as reaction to stress Primary hypertension- Primary Unspecified essential hypertension FLAVIO (obstructive sleep apnea) Obstructive sleep apnea (adult) (pediatric) Morbid (severe) obesity due to excess calories (CMS-HCC) Ventral hernia without obstruction or gangrene Unspecified ventral hernia without mention of obstruction or gangrene Ventral hernia without obstruction or gangrene- Primary Unspecified ventral hernia without mention of obstruction or gangrene Pre-diabetes Other abnormal glucose Primary hypertension Unspecified essential hypertension Polycystic ovaries Pelvic pain Well woman exam with routine gynecological exam- Primary Routine gynecological examination Morbid (severe) obesity due to excess calories (CMS-HCC) Major depressive disorder, single episode, moderate (HCC)- Primary Major depressive disorder, single episode, moderate Morbid (severe) obesity due to excess calories (CMS-HCC) Body mass index (BMI) 45.0-49.9, adult ([facility]) FLAVIO (obstructive sleep apnea) Obstructive sleep apnea (adult) (pediatric) Primary hypertension Unspecified essential hypertension PTSD (post-traumatic stress disorder) Posttraumatic stress disorder Panic attack as reaction to stress Major depressive disorder, single episode, moderate (HCC)- Primary Major depressive disorder, single episode, moderate FLAVIO (obstructive sleep apnea) Obstructive sleep apnea (adult) (pediatric) Primary hypertension Unspecified essential hypertension Ventral hernia without obstruction or gangrene Unspecified ventral hernia without mention of obstruction or gangrene Body mass index (BMI) 45.0-49.9, adult ([facility]) Morbid (severe) obesity due to excess calories ([facility]) Primary hypertension- Primary Unspecified essential hypertension FLAVIO (obstructive sleep apnea) Obstructive sleep apnea (adult) (pediatric) Morbid (severe) obesity due to excess calories ([facility]) Major depressive disorder, single episode, moderate with anxious distress (HCC) Major depressive disorder, single episode, moderate (HCC) Major depressive disorder, single episode, moderate Pain, dental Primary hypertension- Primary Unspecified essential hypertension FLAVIO (obstructive sleep apnea) Obstructive sleep apnea (adult) (pediatric) Morbid (severe) obesity due to excess calories (CMS-HCC) Pre-diabetes Other abnormal glucose Panic attack as reaction to stress PTSD (post-traumatic stress disorder) Posttraumatic stress disorder Major depressive disorder, single episode, moderate with anxious distress (HCC) Epistaxis Erythema ab igne Erythema due to burn (first degree), unspecified site PTSD (post-traumatic stress disorder) Posttraumatic stress disorder Major depressive disorder, single episode, moderate with anxious distress (HCC) Work-related stress Other occupational circumstances or maladjustment documented in this encounter [facility] HealthcareHistory general Narrative - Reported* Type Description Date Surgical History wisdom teeth [employer]out[employer] Other Progress note No data available for this section [facility] Summary Purpose Family History No Family History Records FoundNo Family History Records Found No data available for this section No data available for this section No Family History Records FoundNo Family History Records FoundNo Family History Records FoundNo Family History Records FoundNo Family History Records Found Advance Directives Advance Directive Response Recorded Date/ Time Advance Directives No August 28, 021 5:22pm Advance Directive Response Recorded Date/ Time Advance Directives No August 28, 021 4:22pm Additional Source Comments REASON FOR VISIT (unrecogniz [...] Ventral hernia without obstruction or gangrene Procedures [facility] OFFICE/OUTPATIENT NEW HIGH MDM 60 MINUTES Whit Ca, PALLAVI [address] [place] [address] Phone: tel: fax: Anam Kirkland DO [address] [facility] [address] [place] [address] Phone: tel: fax: Referral ID Status Reason Start Date Expiration Date V isits Requested Visits Authorized [id number] Closed Specialty Services Required 03/05/2024 09/01/2024 1 1 Reason Comments Follow-up Depression PTSD (Post-Traumatic Stress Disorder) Reason Comments Follow-up Anxiety PTSD (Post-Traumatic Stress Disorder) Reason Comments Gynecologic Exam Reason Comments Psychiatric Evaluation Depression PTSD (Post-Traumatic Stress Disorder) Anxiety Specialty Diagnoses / Procedures Referred By [facility] Referred To Contact Behavioral Health Diagnoses Panic attack as reaction to stress ([facility]) Procedures [facility] OFFICE/OUTPATIENT NEW HIGH MDM 60 MINUTES Whit Ca, PALLAVI [address] [place] [address] Shauna Pat, [facility] [address] [place] [address] Referral ID Status Reason Start Date Expiration Date V isits Requested Visits Authorized [id number] Closed Specialty Services Required 11/14/2023 05/12/2024 1 1 Reason Comments Follow-up PTSD (Post-Traumatic Stress Disorder) Anxiety Reason Comments Follow-up PTSD (Post-Traumatic Stress Disorder) Anxiety Depression Reason Comments Follow-up Anxiety Depression PTSD (Post-Traumatic Stress Disorder) Reason Comments Abnormal Pap Smear Specialty Diagnoses / Procedures Referred By [facility] Referred To Contact Obstetrics and Gynecology Diagnoses 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 Procedures [facility] OFFICE[facility]OUTPATIENT [facility] Whit Ca NP [address] [place] [address] Phone: tel: fax: Chuy Mcclain, [address] [place] [address] Phone: tel: fax: Referral ID Status Reason Start Date Expiration Date V isits Requested Visits Authorized [id number] Closed Specialty Services Required 04/24/2024 10/21/2024 1 1 Reason Comments Follow-up PTSD (Post-Traumatic Stress Disorder) Reason Comments Colposcopy Reason Comments Med Refill Reason Comments Sleep Apnea Reason Comments Hypertension Source Comments (unrecognize d section and content) In the event this informatio n is protected by the Federal Confidentiality of Alcohol and Drug Abuse Patient Records regulations: The Federal rules restrict any use of the information to criminally investigate or prosecute any alcohol or drug abuse patient.[facility] the event this information is protected by the Federal Confidentiality of Alcohol and Drug Abuse Patient Records regulations: The Federal rules restrict any use of the information to criminally investigate or prosecute any alcohol or drug abuse patient.[facility] Center[facility] the event this information is protected by the Federal Confidentiality of Alcohol and Drug Abuse Patient Records regulations: The Federal rules restrict any use of the information to criminally investigate or prosecute any alcohol or drug abuse patient.[facility] Center[facility] the event this information is protected by the Federal Confidentiality of Alcohol and Drug Abuse Patient Records regulations: The Federal rules restrict any use of the information to criminally investigate or prosecute any alcohol or drug abuse patient.[facility] Care Teams (unrecognized sec tion and content) Nutrition Program Instructor Relationship Specialty Start Date End Date Tiki Chan [facility] [place] [address] Referring Obstetrics 11/16/21 Nutrition Program Instructor Relationship Specialty Start Date End Date Tiki Chan [address] [place] [address] [place] [address] Referring Obstetrics 11/16/21 Nutrition Program Instructor Relationship Specialty Start Date End Date Tiki Chan [address] [place] [address] [place] [address] Referring Obstetrics 11/16/21 Nutrition Program Instructor Relationship Specialty Start Date End Date Tiki Chan [address] [place] [address] [place] [address] Referring Obstetrics 11/16/21 Team Status: Active Member Role Status Dates PHYSICIAN NO FAMILY Primary Care Provider Active Team Status: Inactive Member Role Status Dates PHYSICIAN NO FAMILY Primary Care Provider Active Start: August 29, 2023 End: August 29, 2023 NON STAFF Attending Provider Active Start: [facility] 2023 End: August 29, 2023 Nutrition Program Instructor Relationship Specialty Start Date End Date Mushtaq Lu MD [address] [place] [id number] PCP - General Family Medicine 08/01/23 Whit Ca NP [address] [place] [address] Nurse Practitioner Family Medicine 08/01/23 Nutrition Program Instructor Relationship Specialty Start Date End Date Mushtaq Lu MD [address] [place] [address] PCP - General Family Medicine 08/01/23 Whit Ca NP [address] [place] [address] Nurse Practitioner Family Medicine 08/01/23 Nutrition Program Instructor Relationship Specialty Start Date End Date Mushtaq Lu MD [address] [place] [address] PCP - General Family Medicine 08/01/23 Whit Ca NP [address] [place] [address] Nurse Practitioner Family Medicine 08/01/23 Nutrition Program Instructor Relationship Specialty Start Date End Date Mushtaq Lu MD [address] [place] [address] PCP - General Family Medicine 08/01/23 Whit Ca NP [address] [place] [address] Nurse Practitioner Family Medicine 08/01/23 Nutrition Program Instructor Relationship Specialty Start Date End Date Mushtaq Lu MD [address] [place] [address] PCP - General Family Medicine 08/01/23 Whit Ca NP [address] [place] [address] Nurse Practitioner Family Medicine 08/01/23 Nutrition Program Instructor Relationship Specialty Start Date End Date Mushtaq Lu MD [address] [place] [address] PCP - General Family Medicine 08/01/23 Whit Ca NP [address] [place] [address] Nurse Practitioner Family Medicine 08/01/23 Nutrition Program Instructor Relationship Specialty Start Date End Date Mushtaq Lu MD [address] [place] [address] PCP - General Family Medicine 08/01/23 Whit Ca NP [address] [place] [address] Nurse Practitioner Family Medicine 08/01/23 Nutrition Program Instructor Relationship Specialty Start Date End Date Mushtaq Lu MD [address] [place] [address] PCP - General Family Medicine 08/01/23 Whit Ca NP [address] [place] [address] Nurse Practitioner Family Medicine 08/01/23 Nutrition Program Instructor Relationship Specialty Start Date End Date Mushtaq Lu MD [address] [place] [address] PCP - General Family Medicine 08/01/23 Whit Ca NP [address] [place] [address] Nurse Practitioner Family Medicine 08/01/23 Nutrition Program Instructor Relationship Specialty Start Date End Date Mushtaq Lu MD [address] [place] [address] PCP - General Family Medicine 08/01/23 Whit Ca NP [address] [place] [address] Nurse Practitioner Family Medicine 08/01/23 Nutrition Program Instructor Relationship Specialty Start Date End Date Mushtaq Lu MD [address] [place] [address] PCP - General Family Medicine 08/01/23 Whit Ca NP [address] [place] [address] Nurse Practitioner Family Medicine 08/01/23 Nutrition Program Instructor Relationship Specialty Start Date End Date Mushtaq Lu MD [address] [place] [address] PCP - General Family Medicine 08/01/23 Whit Ca NP [address] [place] [address] Nurse Practitioner Family Medicine 08/01/23 Nutrition Program Instructor Relationship Specialty Start Date End Date Mushtaq Lu MD [address] [place] [address] PCP - General Family Medicine 08/01/23 Whit Ca NP [address] [place] [address] Nurse Practitioner Family Medicine 08/01/23 Nutrition Program Instructor Relationship Specialty Start Date End Date Mushtaq Lu MD [address] [place] [address] PCP - General Family Medicine 08/01/23 Whit Ca NP [address] [place] [address] PCP - [facility] 03/08/24 Whit Ca NP [address] [place] [address] Nurse Practitioner Family Medicine 08/01/23 Nutrition Program Instructor Relationship Specialty Start Date End Date Mushtaq Lu MD [address] [place] [address] PCP - General Family Medicine 08/01/23 Whit Ca NP [address] [place] [address] PCP - [facility] 03/08/24 Whit Ca NP [address] [place] [address] Nurse Practitioner Family Medicine 08/01/23 Nutrition Program Instructor Relationship Specialty Start Date End Date Mushtaq uL MD [address] [place] [address] PCP - General Family Medicine 08/01/23 Whit Ca NP [address] [place] [address] PCP - [facility] 03/08/24 Whit Ca NP [address] [place] [address] Nurse Practitioner Family Medicine 08/01/23 Nutrition Program Instructor Relationship Specialty Start Date End Date Mushtaq Lu MD [address] [place] [address] PCP - General Family Medicine 08/01/23 Whit Ca NP [address] [place] [address] Nurse Practitioner Family Medicine 08/01/23 Nutrition Program Instructor Relationship Specialty Start Date End Date Mushtaq Lu MD [address] [place] [address] PCP - General Family Medicine 08/01/23 Whit Ca NP [address] [place] [address] Nurse Practitioner Family Medicine 08/01/23 Nutrition Program Instructor Relationship Specialty Start Date End Date Mushtaq Lu MD [address] [place] [address] PCP - General Family Medicine 08/01/23 Whit Ca NP [address] [place] [address] Nurse Practitioner Family Medicine 08/01/23 Nutrition Program Instructor Relationship Specialty Start Date End Date Mushtaq Lu MD [address] [place] [address] PCP - General Family Medicine 08/01/23 Whit Ca NP [address] [place] [address] PCP - [facility] 03/08/24 Whit Ca NP [address] [place] [address] Nurse Practitioner Family Medicine 08/01/23 Nutrition Program Instructor Relationship Specialty Start Date End Date Mushtaq Lu MD [address] [place] [address] PCP - General Family Medicine 08/01/23 Whit Ca NP [address] [place] [address] PCP - [facility] [employer] 03/08/24 Whit Ca NP [address] [place] [address] Nurse Practitioner Family Medicine 08/01/23 Nutrition Program Instructor Relationship Specialty Start Date End Date Mushtaq Lu MD [address] [place] [address] PCP - General Family Medicine 08/01/23 Whit Ca NP [address] [place] [address] PCP - [facility] 03/08/24 Whit Ca NP [address] [place] [address] Nurse Practitioner Family Medicine 08/01/23 Nutrition Program Instructor Relationship Specialty Start Date End Date Mushtaq Lu MD [address] [place] [address] PCP - General Family Medicine 08/01/23 Whit Ca NP [address] [place] [address] PCP - [facility] 03/08/24 Whit Ca NP [address] [place] [address] Nurse Practitioner Family Medicine 08/01/23 Nutrition Program Instructor Relationship Specialty Start Date End Date Mushtaq Lu MD [address] [place] [address] PCP - General Family Medicine 08/01/23 Whit Ca NP [address] [place] [address] PCP - [facility] [employer] 03/08/24 Whit Ca NP [address] [place] [address] Nurse Practitioner Family Medicine 08/01/23 Patric Archer LPC Therapist Behavioral Health 05/20/24 Nutrition Program Instructor Relationship Specialty Start Date End Date Mushtaq Lu MD [address] [place] [address] PCP - General Family Medicine 08/01/23 Whit Ca NP [address] [place] [address] PCP - [facility] 03/08/24 Whit Ca NP [address] [place] [address] Nurse Practitioner Family Medicine 08/01/23 Patric Archer LPC Therapist Behavioral Health 05/20/24 Nutrition Program Instructor Relationship Specialty Start Date End Date Mushtaq Lu MD [address] [place] [address] PCP - General Family Medicine 08/01/23 Whit Ca NP [address] [place] [address] PCP - [facility] 03/08/24 Whit Ca NP [address] [place] [address] Nurse Practitioner Family Medicine 08/01/23 Patric Archer LPC Therapist Behavioral Health 05/20/24 Nutrition Program Instructor Relationship Specialty Start Date End Date Mushtaq Lu MD [address] [place] [address] PCP - General Family Medicine 08/01/23 Whit Ca NP [address] [place] [address] PCP - [facility] [employer] 03/08/24 Whit Ca NP [address] [place] [address] Nurse Practitioner Family Medicine 08/01/23 Patric Archer LPC Therapist Behavioral Health 05/20/24 Nutrition Program Instructor Relationship Specialty Start Date End Date Mushtaq Lu MD [address] [place] [address] PCP - General Family Medicine 08/01/23 Whit Ca NP [address] [place] [address] PCP - [facility] [employer] 03/08/24 Whit Ca NP [address] [place] [address] Nurse Practitioner Family Medicine 08/01/23 Patric Archer LPC Therapist Behavioral Health 05/20/24 Nutrition Program Instructor Relationship Specialty Start Date End Date Mushtaq Lu MD [address] [place] [address] PCP - General Family Medicine 08/01/23 Whit Ca NP [address] [place] [address] PCP - [facility] 03/08/24 Whit aC NP [address] [place] [address] Nurse Practitioner Family Medicine 08/01/23 Patric Archer LPC Therapist Behavioral Health 05/20/24 Nutrition Program Instructor Relationship Specialty Start Date End Date Mushtaq Lu MD [address] [place] [address] PCP - General Family Medicine 08/01/23 Whit Ca NP [address] [place] [address] PCP - [facility] [employer] 03/08/24 Whit Ca NP [address] [place] [address] Nurse Practitioner Family Medicine 08/01/23 Patric Archer LPC Therapist Behavioral Health 05/20/24 Team Status: Inactive Member Role Status Dates Chuy Mcclain DO Attending Provider Active Start : June 17, 2024 End: June 17, 2024 Nutrition Program Instructor Relationship Specialty Start Date End Date Mushtaq Lu MD [address] [place] [address] PCP - General Family Medicine 08/01/23 Whit Ca NP [address] [place] [address] PCP - [facility] [employer] 03/08/24 Whit Ca NP [address] [place] [address] Nurse Practitioner Family Medicine 08/01/23 Patric Archer LPC Therapist Behavioral Health 05/20/24 Nutrition Program Instructor Relationship Specialty Start Date End Date Mushtaq Lu MD [address] [place] [address] PCP - General Family Medicine 08/01/23 Whit Ca NP [address] [place] [address] PCP - [facility] [employer] 03/08/24 Whit Ca NP [address] [place] [address] Nurse Practitioner Family Medicine 08/01/23 Patric Archer LOCATED [facility]IN [facility] Therapist Behavioral Health 05/20/24 Nutrition Program Instructor Relationship Specialty Start Date End Date Mushtaq Lu MD [address] [place] [address] PCP - General Family Medicine 08/01/23 Whit Ca NP [address] [place] [address] PCP - [place] [employer] 03/08/24 Whit Ca NP [address] [place] [address] Nurse Practitioner Family Medicine 08/01/23 Patric Archer LPC Therapist Behavioral Health 05/20/24 Nutrition Program Instructor Relationship Specialty Start Date End Date Mushtaq Lu MD [address] [place] [address] PCP - General Family Medicine 08/01/23 Whit Ca NP [address] [place] [address] PCP - [place] [employer] 03/08/24 Whit Ca NP [address] [place] [address] Nurse Practitioner Family Medicine 08/01/23 Patric Archer LPC Therapist Behavioral Health 05/20/24 Nutrition Program Instructor Relationship Specialty Start Date End Date Mushtaq Lu MD [address] [place] [address] PCP - General Family Medicine 08/01/23 Whit Ca NP [address] [place] [address]1002 PCP - [place] [employer] 03/08/24 Whit Ca NP [address] [place] [address] Nurse Practitioner Family Medicine 08/01/23 Patric Archer LPC Therapist Behavioral Health 05/20/24 Nutrition Program Instructor Relationship Specialty Start Date End Date Mushtaq Lu MD [address] [place] [address] PCP - General Family Medicine 08/01/23 Whit Ca NP [address] [place] [address] PCP - [place] [employer] 03/08/24 Whit Ca NP [address] [place] [address] Nurse Practitioner Family Medicine 08/01/23 Patric Archer LPC Therapist Behavioral Health 05/20/24 Nutrition Program Instructor Relationship Specialty Start Date End Date Mushtaq Lu MD [address] [place] [address] PCP - General Family Medicine 08/01/23 Whit Ca NP [address] [place] [address] PCP - [place] [employer] 03/08/24 Whit Ca NP [address] [place] [address] Nurse Practitioner Family Medicine 08/01/23 Patric Archer LPC Therapist Behavioral Health 05/20/24 Nutrition Program Instructor Relationship Specialty Start Date End Date Mushtaq Lu MD [address] [place] [address] PCP - General Family Medicine 08/01/23 Whit Ca NP [address] [place] [phone] PCP - [place] [employer] 03/08/24 Whit Ca NP [address] [place] [address] Nurse Practitioner Family Medicine 08/01/23 Patric Archer LPC Therapist Behavioral Health 05/20/24 Bette Logan [employer] OPERATOR Senior Grants Officer Family Medicine 08/21/24 Nutrition Program Instructor Relationship Specialty Start Date End Date Mushtaq Lu MD [address] [place] [address] PCP - General Family Medicine 08/01/23 Whit Ca NP [address] [place] [address] PCP - [place] [employer] 03/08/24 Whit Ca NP [address] [place] [address] Nurse Practitioner Family Medicine 08/01/23 Patric Archer LPC Therapist Behavioral Health 05/20/24 Bette Logan [facility] Senior Grants Officer Family Medicine 08/21/24 Nutrition Program Instructor Relationship Specialty Start Date End Date Mushtaq Lu MD [address] [place] [address] PCP - General Family Medicine 08/01/23 Whit Ca NP [address] [place] [address]1002 Nurse Practitioner Family Medicine 08/01/23 Patric Archer LPC Therapist Behavioral Health 05/20/24 Nutrition Program Instructor Relationship Specialty Start Date End Date Mushtaq Lu MD [address] [place] [address] PCP - General Family Medicine 08/01/23 Whit Ca NP [address] [place] [address]1002 Nurse Practitioner Family Medicine 08/01/23 Patric Archer LPC Therapist Behavioral Health 05/20/24 Nutrition Program Instructor Relationship Specialty Start Date End Date Mushtaq Lu MD [address] [place] [address]1002 PCP - General Family Medicine 08/01/23 Whit Ca NP [address] [place] [address]1002 Nurse Practitioner Family Medicine 08/01/23 Patric Archer LPC Therapist Behavioral Health 05/20/24 Nutrition Program Instructor Relationship Specialty Start Date End Date Mushtaq Lu MD [address] [place] [address] PCP - General Family Medicine 08/01/23 Whit Ca NP [address] [place] [address]1002 Nurse Practitioner Family Medicine 08/01/23 Patric Archer LPC Therapist Behavioral Health 05/20/24 Nutrition Program Instructor Relationship Specialty Start Date End Date Mushtaq Lu MD [address] [place] [address] PCP - General Family Medicine 08/01/23 Whit Ca NP [address] [place] [address]1002 Nurse Practitioner Family Medicine 08/01/23 Patric Archer [facility] Therapist Behavioral Health 05/20/24 Nutrition Program Instructor Relationship Specialty Start Date End Date Mushtaq Lu MD [address] [place] [address] PCP - General Family Medicine 08/01/23 Whit Ca NP [address] [place] [address] Nurse Practitioner Family Medicine 08/01/23 Patric Archer LPC Therapist Behavioral Health 05/20/24 Nutrition Program Instructor Relationship Specialty Start Date End Date Mushtaq Lu MD [address] [place] [address] PCP - General Family Medicine 08/01/23 Whit Ca NP [address] [place] [address]-1002 Nurse Practitioner Family Medicine 08/01/23 Patric Archer LPC Therapist Behavioral Health 05/20/24 Nutrition Program Instructor Relationship Specialty Start Date End Date Mushtaq Lu MD [address] [place] [address] PCP - General Family Medicine 08/01/23 Whit Ca NP [address] [place] [address]1002 Nurse Practitioner Family Medicine 08/01/23 Patric Archer LPC Therapist Behavioral Health 05/20/24 Nutrition Program Instructor Relationship Specialty Start Date End Date Mushtaq Lu MD [address] [place] [address] PCP - General Family Medicine 08/01/23 Whit Ca, PALL[place]I [address] [place] [address] Nurse Practitioner Family Medicine 08/01/23 Patric Archer LPC Therapist Behavioral Health 05/20/24 Nutrition Program Instructor Relationship Specialty Start Date End Date Mushtaq Lu MD [address] [place] [address] PCP - General Family Medicine 08/01/23 Whit Ca NP [address] [place] [address] Nurse Practitioner Family Medicine 08/01/23 Patric Archer LPC Therapist Behavioral Health 05/20/24 Nutrition Program Instructor Relationship Specialty Start Date End Date Mushtaq Lu MD [address] [place] [address] PCP - General Family Medicine 08/01/23 Whit Ca NP [address] [place] [address] Nurse Practitioner Family Medicine 08/01/23 Patric Archer LPC Therapist Behavioral Health 05/20/24 Nutrition Program Instructor Relationship Specialty Start Date End Date Mushtaq Lu MD [address] [place] [phone] PCP - General Family Medicine 08/01/23 Whit Ca NP [address] [place] [address] Nurse Practitioner Family Medicine 08/01/23 Patric Archer LPC Therapist Behavioral Health 05/20/24 Nutrition Program Instructor Relationship Specialty Start Date End Date Mushtaq Lu MD [address] [place] [address] PCP - General Family Medicine 08/01/23 Whit Ca NP [address] [place] [address] Nurse Practitioner Family Medicine 08/01/23 Patric Archer LPC Therapist Behavioral Health 05/20/24 INFORMATION SOURCE (unrecogn ized section and content) DATE CREATED AUTHOR 02/06/2022 [facility] DATE CREATED AUTHOR AUTHOR'S ORGANIZ ATION 09/21/2022 [facility] DATE CREATED AUTHOR AUTHOR'S ORGANIZ ATION 05/02/2024 Hernadez Damon [facility] DATE CREATED AUTHOR AUTHOR'S ORGANIZ ATION 05/03/2024 [facility] DATE CREATED AUTHOR AUTHOR'S ORGANIZ ATION 06/20/2024 [facility] DATE CREATED AUTHOR AUTHOR'S ORGANIZ ATION 07/06/2024 [facility] DATE CREATED AUTHOR AUTHOR'S ORGANIZ ATION 12/21/2024 [facility] EPIC Goals (unrecognized section [...] BE BASED ON THE PRIMARY CLINICAL RECORDS. [employer] provides no warranty or guarantee of the accuracy or completeness of information in this document.
[2025-01-08 13:08] LABS: Pap IG (Image Guided) Note (.)
== END 2025-01-01 19:50 | disposition home or self-care (01) ==
LOC: LAB 19:49
PROVIDERS: PCP Nurse Practitioner; Visit Provider Obstetrics & Gynecology
DX: R87.612 Low grade squamous intraepithelial lesion on cytologic smear of cervix (LGSIL) (principal); Z01.42 Encounter for cervical smear to confirm findings of recent normal smear following initial abnormal smear
CPT/HCPCS: 87624; 88175

== ENCOUNTER 2025-01-27 01:00 | Outpatient (REF) | payer BC, SELFPAY ==
--- OUTSIDE RECORDS SUMMARY | 2025-01-30 13:35 | XMS_ITS | CCD ---
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 Gross/Micro [...] submitted in a single cassette. (1, ns, [id number]) CPT Codes 96937 Specimen: [id number] Received: 06/18/24 Status: FATUMA Ray Num: [id number] Spec Type: Surgical Subm Dr: Chuy Mcclain Tissues: A Endocervix - Curettings (ECC) Procedures: HE/2, Gross/Micro L4 Patient: Ramin Hernandez [id number] (Continued) Signed (signature on file) Zain Blackburn MD 06/19/24 1450 Normal [facility] HCG ( test) Ql (U)o n 05-31-2024 Beta HCG ( test) Ql (U) Negative Normal NEG [facility] Comment on above: Performed By: #### 2 106-3 #### [facility] ([id number]) [address] [place] [address] Ambulatory Visit Summaryon 1 07-01-2023 Ambulatory Visit Summary Ambulatory Visit Summary RAMIN LANIER :1990 Visit Date:04/29/2024 Ambulatory Visit Instructions Your Diagnosis Kidney stone Asymptomatic microscopic hematuria Family history of kidney disease Your Care Team Attending Physician - Audi FRANCOIS MD Primary Care Physician - WHIT CA CNP [...] Follow Up with ALESSANDRO EGAN, Audi Felton, URJemal When: Only if needed Where: [facility] [address] , [place] [address] [phone] Medications What How Much When Instructions Unchanged [...] these instructions at home: Medicines ??? Take kftn-slr-qgoxpcr and prescription medicines only as told by [...] drink. Genera (more content not included)... Normal [facility] Urology Office/Clinic Noteon 04-29-2024 Urology Office/Clinic Note [...] Urology [address], [place] [address] [phone] Additional Instructions: Patient Education Kidney Stones, Kohl-dv-Ejzp I, Jane Garcia, personally scribed for Dr. Francois on 04/29/2024 [...] 15:40:00) Prote (more content not included)... Normal [facility] Comment on above: Result Comment: Elec tronically Signed By: Audi FRANCOIS MD\.br\Date and Time Signed: 04/29/24 16:47 EST\.br\Electronically Co-Signed By: Jane Garcia\.br\Date and Time Co-Signed: 04/29/24 16:44 EST IGP,APTIMA HPV,AGE GDLNon AGE GDLN ACOG TESTING Note . [facility] Comment on above: TESTS RESULT FLAG UN ITS REF RANGE LAB Clinician Provided Cytology Information Source.............Cervix;Endocervix LMP / Prev Treat...UXX=[id number] No. of containers..01 ThinPrep Vial Age Algo ACOG Norah... 29 FLAG LEGEND: L-Low Normal,H-High Normal,LL-Alert Low,HH-Alert High <-Panic Low,>-Panic High,A-Abnormal,AA-Critical Abnormal Performed at: 01 =[address] [address] Yesenia Nelson MD, HPV APTIMA Positive Abnormal Negative [facility] Comment on above: This nucleic acid am plification test detects fourteen high- risk HPV types (16,18,31,33,35,39,45,51,52,56,58,59,66,68) without differentiation. Performed at: =[address] [id number] Diazo Technician: Yesenia Nelson MD, Phone: [phone] Performed at: [address] [id number] Diazo Technician: Yesenia Nelson MD, Phone: [phone] IGP, APTIMA HPV, RFX 16/18,45 Note Abnormal . [facility] Comment on above: TESTS RESULT FLAG UN ITS REF RANGE LAB DIAGNOSIS: [A] 02 EPITHELIAL CELL ABNORMALITY. LOW GRADE SQUAMOUS INTRAEPITHELIAL LESION (LSIL). Specimen adequacy: 02 Satisfactory for evaluation. No endocervical component is identified. Performed by: 02 Fallon Ferrara, Founder And Chief Executive Officer (ASCP) Electronically si... 02 Sarai Martins MD, [...] <-Panic Low,>-Panic High,A-Abnormal,AA-Critical Abnormal Performed at: [address] [phone] Yesenia Nelson MD, Interpretation and review of laboratory results Abnormal [facility] BROOM-ALONE 03/26/2024 CERVIX ENDOCERVIX CLINIS[facility] HbA1c (Bld) [Mass fraction]o n 03-05-2024 Interpretation and review of laboratory results Normal [facility] - Hematology and Cell countson 03-05-2024 HbA1c (Bld) [Mass fraction] 5.50 % [facility]05 SARS-CoV-2 (COVID-19) RNA CRISTEL+probe Ql (Unsp spec) Not detected Normal NOT DETECTED [facility] Comment on above: Performed By: #### C VDAGS #### [facility] [address] [place] [address] Dr. Alexei Gonzales INFLUENZA A AND B AGon 09-20 [facility] SEE BELOW Normal [facility] Comment on above: Result Comment: Nega tive for Flu A protein angiten. Infection due to Flu A cannot be ruled out. Flu A angiten in the sample may be below the detection limit of the test. Performed By: #### I NFLUAB #### [facility] [address] [place] [address] [facility] SEE BELOW Normal [facility] Comment on above: Result Comment: Nega tive for Flu B protein antigen. Infection due to Flu B cannot be ruled out. Flu B antigen in the sample may be below the detection limit of the test. Performed By: #### I NFLUAB #### [facility] [address] [place] [address] Dr. Alexei Gonzales INFLUENZA A AG Negative Normal NEGATIVE SEE COMMENT [facility] Comment on above: Performed By: #### I NFLUAB #### [facility] [address] [address] [address] Alexei Gonzales INFLUENZA B AG Negative Normal NEGATIVE SEE COMMENT [facility] Comment on above: Performed By: #### I NFLUAB #### [facility] [address] [place] [address] Dr. Alexei Gonzales SYMPTOMATIC COVID-19 ANTIGEN on 09-20-2022 EUA Statement SEE BELOW Normal [facility] Comment on above: Result [...] sooner. Performed By: #### C VDAGS #### [facility] [address] [place] [address] Dr. Alexei Gonzales SARS-CoV-2 (COVID-19) RNA CRISTEL+probe Ql (Unsp spec) Negative Normal NEGATIVE [facility] Comment on above: Performed By: #### C VDAGS #### [facility] [address] [place] [address] Dr. Alexei Gonzales CULTURE WOUNDon 04-26-2023 CULTURE WOUND Culture Observations : ANAEROBE PRESENT. Isolate 1 Peptoniphilus lacrimalis Light growth of Normal [facility] Comment on above: Performed By: #### C VDAGS #### [facility] [address] [place] [address] Dr. Alexei Gonzales CBC AUTO DIFFon 05-13-2022 BASO # 0.1 103/ul Normal 0.0-0.1 [facility] Comment on above: Performed By: #### C BC #### [facility] [address] [place] [address] Dr. Alexei Gonzales Basophils/100 WBC (Bld) 0.7 % Normal 0.2-2.0 [facility] Comment on above: Performed By: #### C BC #### [facility] [address] [place] [address] Dr. Alexei Gonzales EO # 0.0 103/ul Normal 0.0-0.7 [facility] Comment on above: Performed By: #### C BC #### [facility] [address] [place] [address] Dr. Alexei Gonzales Eosinophils/100 WBC (Bld) 0.1 % Critically low 0.9-7.0 [facility] Comment on above: Performed By: #### C BC #### [facility] [address] [place] [address] Dr. Alexei Gonzales Erythrocyte distribution width (RBC) [Ratio] 14.6 % Normal 11.0-15.0 [facility] Comment on above: Performed By: #### C BC #### [facility] [address] [place] [address] Dr. Alexei Gonzales Hematocrit (Bld) [Volume fraction] 38.5 % Normal 36.0-48.0 [facility] Comment on above: Performed By: #### C BC #### [facility] [address] [place] [address] Dr. Alexei Gonzales Hemoglobin (Bld) [Mass/Vol] 13.0 g/dL Normal 12.0-16.0 [facility] Comment on above: Performed By: #### C BC #### [facility] [address] [place] [address] Dr. Alexei Gonzales IG # 0.04 10e3/ul Critically high 0.00-0.03 [facility] Comment on above: Performed By: #### C BC #### [facility] [address] [place] [address] Dr. Alexei Gonzales IG % 0.5 % Normal 0.0-0.5 [facility] Comment on above: Performed By: #### C BC #### [facility] [address] [place] [address] Dr. Alexei Gonzales LYMPH # 0.3 103/ul Critically low 1.2-3.8 [facility] Comment on above: Performed By: #### C BC #### [facility] [address] [place] [address] Dr. Alexei Gonzales Lymphocytes/100 WBC (Bld) 4.6 % Critically low 20.5-60.0 [facility] Comment on above: Performed By: #### C BC #### [facility] [address] [place] [address] Dr. Alexei Gonzales MANUAL DIFF REQ NO Normal [facility] Comment on above: Performed By: #### C BC #### [facility] [address] [place] [address] Dr. Alexei Gonzales MCH (RBC) [Entitic mass] 27.0 pg Normal 26.7-34.0 [facility] Comment on above: Performed By: #### C BC #### [facility] [address] [place] [address] Dr. Alexei Gonzales MCHC (RBC) [Mass/Vol] 33.8 g/dL Normal 29.9-35.2 [facility] Comment on above: Performed By: #### C BC #### [facility] [address] [place] [address] Dr. Alexei Gonzales MCV (RBC) [Entitic vol] 79.9 fL Critically low 81.0-99.0 [facility] Comment on above: Performed By: #### C BC #### [facility] [address] [place] [address] Dr. Alexei Gonzales MONO # 0.7 103/ul Normal 0.3-0.8 [facility] Comment on above: Performed By: #### C BC #### [facility] [address] [place] [address] Dr. Alexei Gonzales Monocytes/100 WBC (Bld) 10.1 % Normal 1.7-12.0 [facility] Comment on above: Performed By: #### C BC #### [facility] [address] [place] [address] Dr. Alexei Gonzales NEUT # 6.2 103/ul Normal 1.4-6.5 [facility] Comment on above: Performed By: #### C BC #### [facility] [address] [place] [address] Dr. Alexei Gonzales Neutrophils/100 WBC (Bld) 84.0 % Critically high 43.0-75.0 [facility] Comment on above: Performed By: #### C BC #### [facility] [address] [place] [address] Dr. Alexei Gonzales Platelet mean volume (Bld) [Entitic vol] 10.2 fL Normal 9.5-13.5 [facility] Comment on above: Performed By: #### C BC #### [facility] [address] [place] [address] Dr. Alexei Gonzales PLT 266 103/ul Normal 150-450 [facility] Comment on above: Performed By: #### C BC #### [facility] [address] [place] [address] Dr. Alexei Gonzales RBC 4.82 106/ul Normal 4.20-5.40 [facility] Comment on above: Performed By: #### C BC #### [facility] [address] [place] [address] Dr. Alexei Gonzales WBC 7.3 103/ul Normal 4.0-11.0 [facility] Comment on above: Performed By: #### C BC #### [facility] [address] [place] [address] Dr. Alexei Gonzales Covid-19 PCR ([facility])on SARS-CoV-2 (COVID-19) RNA CRISTEL+probe Ql (Unsp spec) Not detected Normal NOT DETECTED [facility] Comment on above: Result Comment: This test is not yet approved or cleared by the [place] FDA. When there are no FDA-approved or cleared tests available, and other criteria are met, FDA can make tests available under an emergency access mechanism called an Emergency Use Authorization (EUA). The EUA for this test is supported by the [place] of Health and Human Service's (HHS's) declaration [...] SARS-CoV-2. Performed By: #### C BC #### [facility] [address] [place] [address] Dr. Alexei Gonzales GROUP A STREP CULTUREon S. pyogenes Ag Ql (Unsp spec) Culture Observations: NEGATIVE FOR GROUP A STREPTOCOCCUS. Normal [facility] Comment on above: Performed By: #### C VDAGS #### [facility] [address] [place] [address] Dr. Alexei Gonzales INFLUENZA A AND B AGon 05-13 [facility] SEE BELOW Normal [facility] Comment on above: Result Comment: Nega tive for Flu A protein angiten. Infection due to Flu A cannot be ruled out. Flu A angiten in the sample may be below the detection limit of the test. Performed By: #### C BC #### [facility] [address] [place] [address] Dr. Alexei Gonzales INFLUBNEG SEE BELOW Normal [facility] Comment on above: Result Comment: Nega tive for Flu B protein antigen. Infection due to Flu B cannot be ruled out. Flu B antigen in the sample may be below the detection limit of the test. Performed By: #### C BC #### [facility] [address] [place] [address] Dr. Alexei Gonzales INFLUENZA A AG Negative Normal NEGATIVE SEE COMMENT [facility] Comment on above: Performed By: #### C BC #### [facility] [address] [place] [address] Dr. Alexei Gonzales INFLUENZA B AG Negative Normal NEGATIVE SEE COMMENT [facility] Comment on above: Performed By: #### C BC #### [facility] [address] [place] [address] Dr. Alexei Gonzales PREG HCG QUALon 05-13-2022 , QUAL Negative Normal NEGATIVE [facility] Comment on above: Performed By: #### C VDAGS #### [facility] [address] [place] [address] Dr. Alexei Gonzales PROF 14(COMP METB)on 023 Albumin [Mass/Vol] 3.6 g/dL Normal 3.4-5.0 [facility] Comment on above: Performed By: #### C MP #### [facility] [address] [place] [address] Dr. Alexei Gonzales Albumin/Globulin [Mass ratio] 0.8 {ratio} Normal [facility] Comment on above: Performed By: #### C MP #### [facility] [address] [place] [address] Dr. Alexei Gonzales ALP [Catalytic activity/Vol] 95 U/L Normal 46-116 [facility] Comment on above: Performed By: #### C MP #### [facility] [address] [place] [address] Dr. Alexei Gonzales ALT [Catalytic activity/Vol] 62 U/L Critically high 14-59 [facility] Comment on above: Performed By: #### C MP #### [facility] [address] [place] [address] Dr. Alexei Gonzales Anion gap [Moles/Vol] 11.2 mmol/L Normal [facility] Comment on above: Performed By: #### C MP #### [facility] [address] [address] [address] Alexei Gonzales AST [Catalytic activity/Vol] 44 U/L Critically high 15-37 [facility] Comment on above: Performed By: #### C MP #### [facility] [address] [place] [address] Dr. Alexei Gonzales Bilirubin [Mass/Vol] 0.3 mg/dL Normal 0.2-1.0 [facility] Comment on above: Performed By: #### C MP #### [facility] [address] [place] [address] Dr. Alexei Gonzales Calcium [Mass/Vol] 8.9 mg/dL Normal 8.5-10.1 [facility] Comment on above: Performed By: #### C MP #### [facility] [address] [place] [address] Dr. Alexei Gonzales Chloride [Moles/Vol] 100 mmol/L Normal 98-107 [facility] Comment on above: Performed By: #### C MP #### [facility] [address] [place] [address] Dr. Alexei Gonzales CO2 [Moles/Vol] 26.4 mmol/L Normal 21.0-32.0 [facility] Comment on above: Performed By: #### C MP #### [facility] [address] [place] [address] Dr. Alexei Gonzales Creatinine [Mass/Vol] 0.98 mg/dL Normal 0.55-1.02 [facility] Comment on above: Performed By: #### C MP #### [facility] [address] [place] [address] Dr. Alexei Gonzales EGFR-AF MONTSERRATIAN >60 Normal >=60 [facility] Comment on above: Performed By: #### C MP #### [facility] [address] [place] [address] Dr. Alexei Gonzales EGFR-NON AF MONTSERRATIAN >60 Normal >=60 [facility] Comment on above: Performed By: #### C MP #### [facility] [address] [place] [address] Dr. Alexei Gonzales Globulin (S) [Mass/Vol] 4.3 g/dL Normal [facility] Comment on above: Performed By: #### C MP #### [facility] [address] [place] [address] Dr. Alexei Gonzales Glucose [Mass/Vol] 125 mg/dL Critically high 74-106 [facility] Comment on above: Performed By: #### C MP #### [facility] [address] [address] [address] Alexei Gonzales Potassium [Moles/Vol] 3.6 mmol/L Normal 3.5-5.1 [facility] Comment on above: Performed By: #### C MP #### [facility] [address] [place] [address] Dr. Alexei Gonzales Protein [Mass/Vol] 7.9 g/dL Normal 6.4-8.2 [facility] Comment on above: Performed By: #### C MP #### [facility] [address] [place] [address] Dr. Alexei Gonzales Sodium [Moles/Vol] 134 mmol/L Critically low 136-145 [facility] Comment on above: Performed By: #### C MP #### [facility] [address] [place] [address] Dr. Alexei Gonzales Urea nitrogen [Mass/Vol] 12.0 mg/dL Normal 7.0-18.0 [facility] Comment on above: Performed By: #### C MP #### [facility] [address] [place] [address] Dr. Alexei Gonzales Urea nitrogen/Creatinin e [Mass ratio] 12.2 mg/mg Normal [facility] Comment on above: Performed By: #### C MP #### [facility] [address] [place] [address] Dr. Alexei Gonzales STREPT SCREENon 05-13-2022 STREP SCREEN A Negative Normal NEGATIVE [facility] Comment on above: Performed By: #### C VDAGS #### [facility] [address] [place] [address] ABD/PELV WO W [...] by: BORIS ABEL Date: 2022-04-15 11:19 Normal [facility] COVID/FLU/RSV RT-PCRon 04-08 SARS-CoV-2 (COVID-19) RNA CRISTEL+probe Ql (Unsp spec) Positive [facility] [employer] Other COVID/FLU/RSV RT-PCR Negative [facility] [employer] Other [facility] 01-25-2022 [facility] Telephone (REITW) -- RAMIN LANIER ([id number]) 1990 F Date Time Provider Department 01/25/22 TAIWO TORRES During your visit today, we recorded the following information about you: Erica Oscar RN 01/25/2022 9:52 AM Signed Routing to Non Jose L ivf Pool to refuse provera refill Just filled 1 weeks ago Erica Oscar RN January 25, 2022 9:52 AM Dilcia Dawn APRN.[facility] 01/25/2022 10:09 AM Signed Patient's request [...] Encounter Status:Closed by DILCIA DAWN [facility] [place] [facility] -- RAMIN LANIER ([id number]) 1990 F Date Time Provider Department 01/18/22 [...] Status:Closed by SONNY LUCIANA on 01/18/22 Normal [facility] XR KUB 1 VIEWon 01-17-2022 XR [...] by: NIKOLAS CRISTINA Date: 2022-01-17 13:05 Normal [facility] 25(OH)D3 SerPl-ncon 2021 25-hydroxyvitamin D3 [Mass/Vol] 23.4 ng/mL Low 31.0-80.0 [facility] Comment on above: Order Comment: Speci men Type: BLOOD SPECIMEN Ordering Facility: [facility] Address: [address] [place], [place] [address] Result Comment: Clas sification of 25 [place] Vitamin D status: Deficiency/Insufficiency: < or = 30 ng/ml. Sufficiency/Optimal Levels: 31-80 ng/mL Toxicity: > 100 ng/mL. Test performed by chemiluminescent immunoassay. Performed By: #### V ZVG2, 1989-07, XOCHITL #### [facility] CLIA [id number] [address] [place] [address] [id number] [place] [address] CNOVon 12-30-2021 CNOV Office Visit (REISO) -- RAMIN LANIER ([id number]) 1990 F Date Time Provider Department 12/30/21 [...] which included preparing to see the patient, mnoh-kr-eecn patient care, completing clinical documentation, obtaining and/or reviewing separately obtained history, counseling and educating the patient/family/caregiver, and ordering medications, tests, or procedures. Taiwo Torres MD letter to Dr. Chan Referring Provider: BRIANNA TREJO [[id number]] Allergies As of Date: 12/30/2021 Noted Allergy Reaction STRAWBERRIES 12/30/2021 4 - Hives Date Reviewed: 12/30/2021 Reviewed by: Cinthia Price Ma - Fully Assessed Reason for Visit: New Patient [172] Infertility [285] Primary Visit Diagnosis:Primary amenorrhea [N91.0] Order(s):TSH BLD [SQTSH] Order #: [id number] FUTURE PROLACTIN BLD [SQPROL] Order #: [id number] FUTURE RUBELLA IGG AB [SQRUBQNT] Order #: [id number] FUTURE VARICELLA ZOSTER IGG [SQVZVG] Order #: [id number] FUTURE VITAMIN D 25 HYDROXY [SQVITD] Order #: [id number] FUTURE TYPE + SCREEN [SQTSCR] Order #: [id number] FUTURE FSH BLD [SQFSH] Order #: [id number] FUTURE ESTRADIOL-17B BLD [SQE2] Order #: [id number] FUTURE HGB A1C [CXVRV2K] Order #: [id number] FUTURE Prescriptions as of 12/30/2021 - PNV no.95/ferrous fum/folic ac ( ORAL) Take by mouth. Problem List As Of Date: 12/30/2021 (None) Encounter Status:Closed by TAIWO TORRES on 12/30/[address] [facility] Estradiol SerPl-mCncon 12-30 E2 [Mass/Vol] 60 pg/mL [facility] Comment on above: Order Comment: Speci men Type: BLOOD SPECIMEN Ordering Facility: [facility] Address: [address] [place] [address] Result Comment: This test is not suitable [...] 3243 pg/mL Second trimester : 1561 to 97513 pg/mL Third trimester : 8285 to >00997 pg/mL Post-menopausal Estradiol reference range: < 41 pg/mL Reference: 1. Estradiol - E2 (Estradiol III) [package insert V 3.0 [place]]. [facility], [place], [place], October 2015. Performed By: #### 3 016-3, 20026-7, 2243-4, 2842-3 #### [facility] CLIA [id number] [address] [place] [address] [place] FSH SerPl-aCncon 12-30-2021 Follitropin Qn 6.4 m[IU]/mL Normal See comment [facility] Comment on above: Order Comment: Rayne putnam Type: BLOOD SPECIMEN Ordering Facility: [facility] Address: [address] [place] [address] Result Comment: Refe rence range: Follicular: 3.5-12.5 mIU/mL Midcycle: 4.7-21.5 mIU/mL Luteal: 1.7-7.7 mIU/mL Post Lanny: 25.8-134.8 mIU/mL Performed By: #### 3 016-3, 86299-1, 2243-4, 2842-3 #### [facility] CLIA [id number] [address] [place] [address] [place] HbA1c (Bld)on 12-30-2021 Average glucose Estimated from glycated hemoglobin (Bld) [Mass/Vol] 120 mg/dL Normal [facility] Comment on above: Order Comment: Rayne putnam Type: BLOOD SPECIMEN Ordering Facility: [facility] Address: [address] [place] [address] Result Comment: eAG: (Estimated average glucose) is a calculated value from HgbA1c and is commercial pest control representative of the average blood glucose level in the last 2-3 month period. Performed By: #### 5 5454-3 #### [facility] CLIA [id number] [address] [place] [address] [place] HbA1c (Bld) [Mass fraction] 5.8 % High 4.3-5.6 [facility] Comment on above: Order Comment: Speci men Type: BLOOD SPECIMEN Ordering Facility: [facility] Address: [address] [place] [place] [address] Result Comment: [place] Diabetes Association guidelines indicate that patients with HgbA1c in the range 5.7-6.4% are at increased risk for development of diabetes, and intervention by lifestyle modification may be beneficial. HgbA1c greater or equal to 6.5% is considered diagnostic of diabetes. Performed By: #### 5 5454-3 #### [facility] CLIA [id number] [address] [place] [address] [place] Prolactin SerPl-mCncon 12-30 Prolactin [Mass/Vol] 10.3 ng/mL Normal 4.5-26.8 [facility] Comment on above: Order Comment: Rayne putnam Type: BLOOD SPECIMEN Ordering Facility: [facility] Address: [address] [place] [place] [address] Result Comment: Prol actin test is performed using the [employer] Electrochemiluminescence Immunoassay method. Results obtained with different methods or kits cannot be used interchangeably. Performed By: #### 3 016-3, 38048-8, 2243-4, 2842-3 #### [facility] CLIA [id number] [address] [place] [address] [place] RUBELLA IGG ABon 12-30-2021 RUBELLA IGG AB, QUAL Positive Normal Positive [facility] Comment on above: Order Comment: Adeeli men Type: BLOOD SPECIMEN Ordering Facility: [facility] Address: [address] [place] [place] [address] Result Comment: The result suggests recent or past exposure to Rubella virus or history of Rubella vaccination. Positive result may also be seen due to presence of passively-transferred antibodies. Please correlate with patient's history. Performed By: #### V ZVG2, 1988-3, RUBIGG #### [facility] CLIA [id number] [address] [place] [address] [place] TSH SerPl-aCncon 12-30-2021 TSH Qn 2.730 m[IU]/L Normal 0.270-4.200 [facility] Comment on above: Order Comment: Speci men Type: BLOOD SPECIMEN Ordering Facility: [facility] Address: [address] [place] [place] [address] Result Comment: If t he patient is , TSH reference range varies by gestational period: First Trimester (weeks 9-12): 0.180-2.990 mIU/L Second Trimester: 0.110-3.980 mIU/L Third Trimester: 0.480-4.710 mIU/L Soham Joaquin et al. A Practical Approach for the Verifications and Determination of Site- and Trimester-Specific Reference Intervals for Thyroid Function tests in . Thyroid, 2019:29:3:412-420. Tavares Mitchell, et al. 2017 Guidelines of the [place] Thyroid Association for the Diagnosis and Management of Thyroid Disease during and the . Thyroid, 2017:27:3:315-389. Performed By: #### 3 016-3, 90889-8, 2243-4, 2842-3 #### [facility] CLIA [id number] [address] [place] [address] [place] TYPE + SCREENon 12-30-2021 HISTORICAL AB SCR STATUS Negative Normal [facility] Comment on above: Order Comment: Speci men Type: BLOOD SPECIMENOrdering Facility: [facility] Address: [address] [place] [address] Performed By: #### T SCR ####[facility] [id number] [address] [place] TYPE AND SCREEN EXPIRATION 01/02/2022 23:59 Normal [facility] Comment on above: Order Comment: Speci men Type: BLOOD SPECIMENOrdering Facility: [facility] Address: [address] [place] [address] Performed By: #### T SCR ####[facility] [id number] [address] VARICELLA ZOSTER IGGon 12-30 VARICELLA ZOSTER IGG, QUAL Positive Normal Positive [facility] Comment on above: Order Comment: Speci men Type: BLOOD SPECIMEN Ordering Facility: [facility] Address: [address] [place] [address] Result Comment: The result suggests recent or past exposure to Varicella-Zoster virus or chickenpox vaccination or zoster vaccination. Positive result may also be seen due to presence of passively-transferred antibodies. Please correlate with patient's history. Performed By: #### V ZVG2, 1988-3, RUBROSALINAG #### [facility] CLIA [id number] [address] [place] [address] CULTURE URINEon 12-21-2021 CULTURE URINE Culture Observations : LIGHT GROWTH OF MIXED GENITAL ANTONIO. NO POTENTIAL PATHOGENS SEEN. Normal [facility] Comment on above: Performed By: #### C VDAGS #### [facility] [address] [place] [address] Dr. Alexei Gonzales UA RANDOM W/MICROSCOPICon BACTERIA TRACE Abnormal NONE SEEN [facility] Comment on above: Performed By: #### C BC #### [facility] [address] [address] [address] Alexei Gonzales Bilirubin Ql (U) Negative Normal NEGATIVE [facility] Comment on above: Performed By: #### C BC #### [facility] [address] [place] [address] Dr. Alexei Gonzales CAST NONE SEEN Normal NONE SEEN [facility] Comment on above: Performed By: #### C BC #### [facility] [address] [place] [address] Dr. Alexei Gonzales Clarity (U) CLEAR Normal CLEAR [facility] Comment on above: Performed By: #### C BC #### [facility] [address] [place] [address] Dr. Alexei Gonzales Color (U) YELLOW Normal YELLOW [facility] Comment on above: Performed By: #### C BC #### [facility] [address] [place] [address] Dr. Alexei Gonzales Crystals LM Nom (Urine sed) NONE SEEN Normal NONE SEEN [facility] Comment on above: Performed By: #### C BC #### [facility] [address] [place] [address] Dr. Alexei Gonzales Epithelial cells LM Ql (Urine sed) FEW Abnormal NONE SEEN /RARE [facility] Comment on above: Performed By: #### C BC #### [facility] [address] [place] [address] Dr. Alexei Gonzales Glucose Ql (U) Negative Normal NEGATIVE [facility] Comment on above: Performed By: #### C BC #### [facility] [address] [place] [address] Dr. Alexei Gonzales Hemoglobin Ql (U) TRACE-LYSED Abnormal NEGATIVE [facility] Comment on above: Performed By: #### C BC #### [facility] [address] [place] [address] Dr. Alexei Gonzales Ketones Ql (U) Negative Normal NEGATIVE [facility] Comment on above: Performed By: #### C BC #### [facility] [address] [place] [address] Dr. Alexei Gonzales LEUKOCYTES Negative Normal NEGATIVE [facility] Comment on above: Performed By: #### C BC #### [facility] [address] [place] [address] Dr. Alexei Gonzales MUCOUS NONE SEEN Normal NONE SEEN [facility] Comment on above: Performed By: #### C BC #### [facility] [address] [place] [address] Dr. Alexei Gonzales Nitrite Ql (U) Negative Normal NEGATIVE [facility] Comment on above: Performed By: #### C BC #### [facility] [address] [place] [address] Dr. Alexei Gonzales pH (U) 6.0 [pH] Normal 5-9 [facility] Comment on above: Performed By: #### C BC #### [facility] [address] [place] [address] Dr. Alexei Gonzales RBC 2-5 Abnormal 0-2 [facility] Comment on above: Performed By: #### C BC #### [facility] [address] [place] [address] Dr. Alexei Gonzales SPEC GRAVITY >=1.030 Abnormal 1.005-<=1.0 25 [facility] Comment on above: Performed By: #### C BC #### [facility] [address] [place] [address] Dr. Alexei Gonzales UA PROTEIN Negative Normal NEGATIVE/ TRACE [facility] Comment on above: Performed By: #### C BC #### [facility] [address] [place] [address] Dr. Alexei Gonzales Urobilinogen Qn (U) 0.2 {Albin'U}/dL Normal 0.2 - 1.0 [facility] Comment on above: Performed By: #### C BC #### [facility] [address] [place] [address] Dr. Alexei Gonzales WBC 0-2 Abnormal NONE SEEN [facility] Comment on above: Performed By: #### C BC #### [facility] [address] [place] [address] Dr. Alexei Gonzales CBC AUTO DIFFon 11-30-2021 BASO # 0.1 103/ul Normal 0.0-0.1 [facility] Comment on above: Performed By: #### C VDAGS #### [facility] [address] [place] [address] Dr. Alexei Gonzales Basophils/100 WBC (Bld) 0.4 % Normal 0.2-2.0 [facility] Comment on above: Performed By: #### C VDAGS #### [facility] [address] [place] [address] Dr. Alexei Gonzales EO # 0.2 103/ul Normal 0.0-0.7 [facility] Comment on above: Performed By: #### C VDAGS #### [facility] [address] [place] [address] Dr. Alexei Gonzales Eosinophils/100 WBC (Bld) 1.9 % Normal 0.9-7.0 [facility] Comment on above: Performed By: #### C VDAGS #### [facility] [address] [place] [address] Dr. Alexei Gonzales Erythrocyte distribution width (RBC) [Ratio] 13.3 % Normal 11.0-15.0 [facility] Comment on above: Performed By: #### C VDAGS #### [facility] [address] [place] [address] Dr. Alexei Gonzales Hematocrit (Bld) [Volume fraction] 40.8 % Normal 36.0-48.0 [facility] Comment on above: Performed By: #### C VDAGS #### [facility] [address] [place] [address] Dr. Alexei Gonzales Hemoglobin (Bld) [Mass/Vol] 13.0 g/dL Normal 12.0-16.0 [facility] Comment on above: Performed By: #### C VDAGS #### [facility] [address] [place] [address] Dr. Alexei Gonzales IG # 0.05 10e3/ul Critically high 0.00-0.03 [facility] Comment on above: Performed By: #### C VDAGS #### [facility] [address] [place] [address] Dr. Alexei Gonzales IG % 0.4 % Normal 0.0-0.5 [facility] Comment on above: Performed By: #### C VDAGS #### [facility] [address] [place] [address] Dr. Alexei Gonzales LYMPH # 3.4 103/ul Normal 1.2-3.8 [facility] Comment on above: Performed By: #### C VDAGS #### [facility] [address] [place] [address] Dr. Alexei Gonzales Lymphocytes/100 WBC (Bld) 29.1 % Normal 20.5-60.0 [facility] Comment on above: Performed By: #### C VDAGS #### [facility] [address] [place] [address] Dr. Alexei Gonzales MANUAL DIFF REQ NO Normal [facility] Comment on above: Performed By: #### C VDAGS #### [facility] [address] [place] [address] Dr. Alexei Gonzales MCH (RBC) [Entitic mass] 27.3 pg Normal 26.7-34.0 [facility] Comment on above: Performed By: #### C VDAGS #### [facility] [address] [place] [address] Dr. Alexei Gonzales MCHC (RBC) [Mass/Vol] 31.9 g/dL Normal 29.9-35.2 [facility] Comment on above: Performed By: #### C VDAGS #### [facility] [address] [place] [address] Dr. Alexei Gonzales MCV (RBC) [Entitic vol] 85.5 fL Normal 81.0-99.0 [facility] Comment on above: Performed By: #### C VDAGS #### [facility] [address] [place] [address] Dr. Alexei Gonzales MONO # 0.7 103/ul Normal 0.3-0.8 [facility] Comment on above: Performed By: #### C VDAGS #### [facility] [address] [place] [address] Dr. Alexei Gonzales Monocytes/100 WBC (Bld) 5.9 % Normal 1.7-12.0 [facility] Comment on above: Performed By: #### C VDAGS #### [facility] [address] [place] [address] Dr. Alexei Gonzales NEUT # 7.4 103/ul Critically high 1.4-6.5 [facility] Comment on above: Performed By: #### C VDAGS #### [facility] [address] [address] [address] Alexei Gonzales Neutrophils/100 WBC (Bld) 62.3 % Normal 43.0-75.0 [facility] Comment on above: Performed By: #### C VDAGS #### [facility] [address] [address] [address] Alexei Gonzales Platelet mean volume (Bld) [Entitic vol] 10.4 fL Normal 9.5-13.5 [facility] Comment on above: Performed By: #### C VDAGS #### [facility] [address] [address] [address] Alexei Gonzales PLT 319 103/ul Normal 150-450 [facility] Comment on above: Performed By: #### C VDAGS #### [facility] [address] [address] [address] Alexei Gonzales RBC 4.77 106/ul Normal 4.20-5.40 [facility] Comment on above: Performed By: #### C VDAGS #### [facility] [address] [address] [address] Alexei Gonzales WBC 11.8 103/ul Critically high 4.0-11.0 [facility] Comment on above: Performed By: #### C VDAGS #### [facility] [address] [address] [address] Alexei Gonzales FREE T4on 11-30-2021 Free T4 [Mass/Vol] 1.20 ng/dL Normal 0.76-1.46 [facility] Comment on above: Performed By: #### F T4 #### [facility] [address] [address] [address] Alexei Gonzales GLYCOHEMOGLOBIN A1Con 2021 ADA RECOMMENDATION SEE BELOW Normal [facility] Comment on above: Result Comment: ADA RECOMMENDED LIMIT 4.0 - 6.0 ADA THERAPEUTIC TARGET < 7.0 ACTION SUGGESTED > 7.0 Performed By: #### A 1C #### [facility] [address] [place] [address] Dr. Alexei Gonzales Glucose [Mass/Vol] 126 mg/dL Normal [facility] Comment on above: Performed By: #### A 1C #### [facility] [address] [address] [address] Alexei Gonzales HbA1c (Bld) [Mass fraction] 6.0 % Normal 4.5-6.2 [facility] Comment on above: Performed By: #### A 1C #### [facility] [address] [address] [address] Alexei Gonzales LIPID PROFILEon 11-30-2021 CHOL-HDL RATIO NORM SEE BELOW Normal [facility] Comment on above: Result Comment: 3.3 - 4.4 LOW RISK 4.4 - 7.1 AVERAGE RISK 7.1 - 11.0 MODERATE RISK >11.0 HIGH RISK Performed By: #### L IPID, CMP, TSH #### [facility] [address] [address] [address] Alexei Gonzales Cholesterol [Mass/Vol] 180 mg/dL Normal <=200 [facility] Comment on above: Performed By: #### L IPID, CMP, TSH #### [facility] [address] [address] [address] Alexei Gonzales Cholesterol in HDL [Mass/Vol] 40 mg/dL Normal 40-60 [facility] Comment on above: Performed By: #### L IPID, CMP, TSH #### [facility] [address] [address] [address] Alexei Gonzales Cholesterol in LDL [Mass/Vol] 114.4 mg/dL Normal [facility] Comment on above: Performed By: #### L IPID, CMP, TSH #### [facility] [address] [address] [address] Alexei Gonzales Cholesterol.total/ Cholesterol in HDL [Mass ratio] 4.5 {ratio} Normal [facility] Comment on above: Performed By: #### L IPID, CMP, TSH #### [facility] [address] [address] [address] Alexei Gonzales HDL NORMAL > or = 60 mg/dl - LO W CARDIOVASCULAR RISK <40 mg/dl - HIGH CARDIOVASCULAR RISK Normal [facility] Comment on above: Performed By: #### L IPID, CMP, TSH #### [facility] [address] [address] [address] Alexei Gonzales LDL CALC NORMAL SEE BELOW Normal [facility] Comment on above: Result Comment: <100 mg/dl OPTIMAL 100 - 129 mg/dl NEAR OR ABOVE OPTIMAL 130 - 159 mg/dl BORDERLINE HIGH 160 - 189 mg/dl HIGH >190 mg/dl VERY HIGH Performed By: #### L IPID, CMP, TSH #### [facility] [address] [address] [address] Alexei Gonzales Triglyceride [Mass/Vol] 128 mg/dL Normal <=150 [facility] Comment on above: Performed By: #### L IPID, CMP, TSH #### [facility] [address] [address] [address] Alexei Gonzales VLDL CALC 25.6 mg/dL Normal [facility] Comment on above: Performed By: #### L IPID, CMP, TSH #### [facility] [address] [address] [address] Alexei Gonzales PROF 14(COMP METB)on 022 Albumin [Mass/Vol] 3.4 g/dL Normal 3.4-5.0 [facility] Comment on above: Performed By: #### L IPID, CMP, TSH #### [facility] [address] [address] [address] Alexei Gonzales Albumin/Globulin [Mass ratio] 0.9 {ratio} Normal [facility] Comment on above: Performed By: #### L IPID, CMP, TSH #### [facility] [address] [address] [address] Alexei Gonzales ALP [Catalytic activity/Vol] 81 U/L Normal 46-116 [facility] Comment on above: Performed By: #### L IPID, CMP, TSH #### [facility] [address] [address] [address] Alexei Gonzales ALT [Catalytic activity/Vol] 41 U/L Normal 14-59 [facility] Comment on above: Performed By: #### L IPID, CMP, TSH #### [facility] [address] [address] [address] Alexei Gonzales Anion gap [Moles/Vol] 10.6 mmol/L Normal [facility] Comment on above: Performed By: #### L IPID, CMP, TSH #### [facility] [address] [address] [address] Alexei Gonzales AST [Catalytic activity/Vol] 22 U/L Normal 15-37 [facility] Comment on above: Performed By: #### L IPID, CMP, TSH #### [facility] [address] [address] [address] Alexei Gonzales Bilirubin [Mass/Vol] 0.4 mg/dL Normal 0.2-1.0 [facility] Comment on above: Performed By: #### L IPID, CMP, TSH #### [facility] [address] [address] [address] Alexei Gonzales Calcium [Mass/Vol] 9.1 mg/dL Normal 8.5-10.1 [facility] Comment on above: Performed By: #### L IPID, CMP, TSH #### [facility] [address] [address] [address] Alexei Gonzales Chloride [Moles/Vol] 105 mmol/L Normal 98-107 [facility] Comment on above: Performed By: #### L IPID, CMP, TSH #### [facility] [address] [address] [address] Alexei Gonzales CO2 [Moles/Vol] 25.6 mmol/L Normal 21.0-32.0 [facility] Comment on above: Performed By: #### L IPID, CMP, TSH #### [facility] [address] [place] [address] Dr. Alexei Gonzales Creatinine [Mass/Vol] 0.84 mg/dL Normal 0.55-1.02 [facility] Comment on above: Performed By: #### L IPID, CMP, TSH #### [facility] [address] [address] [address] Alexei Gonzales EGFR-AF MONTSERRATIAN >60 Normal >=60 [facility] Comment on above: Performed By: #### L IPID, CMP, TSH #### [facility] [address] [place] [address] Dr. Alexei Gonzales EGFR-NON AF MONTSERRATIAN >60 Normal >=60 [facility] Comment on above: Performed By: #### L IPID, CMP, TSH #### [facility] [address] [place] [address] Dr. Alexei Gonzales Globulin (S) [Mass/Vol] 4.0 g/dL Normal [facility] Comment on above: Performed By: #### L IPID, CMP, TSH #### [facility] [address] [place] [address] Dr. Alexei Gonzales Glucose [Mass/Vol] 113 mg/dL Critically high 74-106 [facility] Comment on above: Performed By: #### L IPID, CMP, TSH #### [facility] [address] [place] [address] Dr. Alexei Gonzales Potassium [Moles/Vol] 4.2 mmol/L Normal 3.5-5.1 [facility] Comment on above: Performed By: #### L IPID, CMP, TSH #### [facility] [address] [place] [address] Dr. Alexei Gonzales Protein [Mass/Vol] 7.4 g/dL Normal 6.4-8.2 [facility] Comment on above: Performed By: #### L IPID, CMP, TSH #### [facility] [address] [place] [address] Dr. Alexei Gonzales Sodium [Moles/Vol] 137 mmol/L Normal 136-145 [facility] Comment on above: Performed By: #### L IPID, CMP, TSH #### [facility] [address] [place] [address] Dr. Alexei Gonzales Urea nitrogen [Mass/Vol] 14.0 mg/dL Normal 7.0-18.0 [facility] Comment on above: Performed By: #### L IPID, CMP, TSH #### [facility] [address] [place] [address] Dr. Alexei Gonzales Urea nitrogen/Creatinin e [Mass ratio] 16.7 mg/mg Normal [facility] Comment on above: Performed By: #### L GISELLE, CMP, TSH #### [facility] [address] [place] [address] Dr. Alexei Gonzales TSHon 11-30-2021 TSH 1.150 uIU/mL Normal 0.358-3.740 [facility] Comment on above: Performed By: #### L IPID, CMP, TSH #### [facility] [address] [place] [address] Dr. Alexei Gonzales UA RANDOM W/MICROSCOPICon BACTERIA SMALL Abnormal NONE SEEN [facility] Comment on above: Performed By: #### C BC #### [facility] [address] [place] [address] Dr. Alexei Gonzales Bilirubin Ql (U) Negative Normal NEGATIVE [facility] Comment on above: Performed By: #### C BC #### [facility] [address] [place] [address] Dr. Alexei Gonzales CAST NONE SEEN Normal NONE SEEN [facility] Comment on above: Performed By: #### C BC #### [facility] [address] [place] [address] Dr. Alexei Gonzales Clarity (U) CLEAR Normal CLEAR [facility] Comment on above: Performed By: #### C BC #### [facility] [address] [place] [address] Dr. Alexei Gonzales Color (U) YELLOW Normal YELLOW [facility] Comment on above: Performed By: #### C BC #### [facility] [address] [place] [address] Dr. Alexei Gonzales Crystals LM Nom (Urine sed) NONE SEEN Normal NONE SEEN [facility] Comment on above: Performed By: #### C BC #### [facility] [address] [place] [address] Dr. Alexei Gonzales Epithelial cells LM Ql (Urine sed) MODERATE Abnormal NONE SEEN /RARE [facility] Comment on above: Performed By: #### C BC #### [facility] [address] [place] [address] Dr. Alexei Gonzales Glucose Ql (U) Negative Normal NEGATIVE [facility] Comment on above: Performed By: #### C BC #### [facility] [address] [place] [address] Dr. Alexei Gonzales Hemoglobin Ql (U) TRACE-INTACT Abnormal NEGATIVE [facility] Comment on above: Performed By: #### C BC #### [facility] [address] [place] [address] Dr. Alexei Gonzales Ketones Ql (U) TRACE Abnormal NEGATIVE [facility] Comment on above: Performed By: #### C BC #### [facility] [address] [place] [address] Dr. Alexei Gonzales LEUKOCYTES Negative Normal NEGATIVE [facility] Comment on above: Performed By: #### C BC #### [facility] [address] [place] [address] Dr. Alexei Gonzales MUCOUS TRACE Abnormal NONE SEEN [facility] Comment on above: Performed By: #### C BC #### [facility] [address] [place] [address] Dr. Alexei Gonzales Nitrite Ql (U) Negative Normal NEGATIVE [facility] Comment on above: Performed By: #### C BC #### [facility] [address] [place] [address] Dr. Alexei Gonzales pH (U) 5.5 [pH] Normal 5-9 [facility] Comment on above: Performed By: #### C BC #### [facility] [address] [place] [address] Dr. Alexei Gonzales RBC 2-5 Abnormal 0-2 [facility] Comment on above: Performed By: #### C BC #### [facility] [address] [place] [address] Dr. Alexei Gonzales SPEC GRAVITY >=1.030 Abnormal 1.005-<=1.0 25 [facility] Comment on above: Performed By: #### C BC #### [facility] [address] [place] [address] Dr. Alexei Gonzales UA PROTEIN Negative Normal NEGATIVE/ TRACE [facility] Comment on above: Performed By: #### C BC #### [facility] [address] [place] [address] Dr. Alexei Gonzales Urobilinogen Qn (U) 0.2 {Albin'U}/dL Normal 0.2 - 1.0 [facility] Comment on above: Performed By: #### C BC #### [facility] [address] [place] [address] Dr. Alexei Gonzales WBC 2-5 Abnormal NONE SEEN [facility] Comment on above: Performed By: #### C BC #### [facility] [address] [place] [address] Dr. Alexei Gonzales CBC AUTO DIFFon 11-22-2021 BASO # 0.1 103/ul Normal 0.0-0.1 [facility] Comment on above: Performed By: #### C BC #### [facility] [address] [place] [address] Dr. Alexei Gonzales Basophils/100 WBC (Bld) 0.4 % Normal 0.2-2.0 [facility] Comment on above: Performed By: #### C BC #### [facility] [address] [place] [address] Dr. Alexei Gonzales EO # 0.2 103/ul Normal 0.0-0.7 [facility] Comment on above: Performed By: #### C BC #### [facility] [address] [place] [address] Dr. Alexei Gonzales Eosinophils/100 WBC (Bld) 1.4 % Normal 0.9-7.0 [facility] Comment on above: Performed By: #### C BC #### [facility] [address] [place] [address] Dr. Alexei Gonzales Erythrocyte distribution width (RBC) [Ratio] 13.2 % Normal 11.0-15.0 [facility] Comment on above: Performed By: #### C BC #### [facility] [address] [place] [address] Dr. Alexei Gonzales Hematocrit (Bld) [Volume fraction] 38.8 % Normal 36.0-48.0 [facility] Comment on above: Performed By: #### C BC #### [facility] [address] [place] [address] Dr. Alexei Gonzales Hemoglobin (Bld) [Mass/Vol] 12.6 g/dL Normal 12.0-16.0 [facility] Comment on above: Performed By: #### C BC #### [facility] [address] [place] [address] Dr. Alexei Gonzales IG # 0.04 10e3/ul Critically high 0.00-0.03 [facility] Comment on above: Performed By: #### C BC #### [facility] [address] [place] [address] Dr. Alexei Gonzales IG % 0.3 % Normal 0.0-0.5 [facility] Comment on above: Performed By: #### C BC #### [facility] [address] [place] [address] Dr. Alexei Gonzales LYMPH # 3.4 103/ul Normal 1.2-3.8 [facility] Comment on above: Performed By: #### C BC #### [facility] [address] [place] [address] Dr. Alexei Gonzales Lymphocytes/100 WBC (Bld) 26.9 % Normal 20.5-60.0 [facility] Comment on above: Performed By: #### C BC #### [facility] [address] [place] [address] Dr. Alexei Gonzales MANUAL DIFF REQ NO Normal [facility] Comment on above: Performed By: #### C BC #### [facility] [address] [place] [address] Dr. Alexei Gonzales MCH (RBC) [Entitic mass] 27.3 pg Normal 26.7-34.0 [facility] Comment on above: Performed By: #### C BC #### [facility] [address] [place] [address] Dr. Alexei Gonzales MCHC (RBC) [Mass/Vol] 32.5 g/dL Normal 29.9-35.2 [facility] Comment on above: Performed By: #### C BC #### [facility] [address] [address] [address] Alexei Gonzales MCV (RBC) [Entitic vol] 84.2 fL Normal 81.0-99.0 [facility] Comment on above: Performed By: #### C BC #### [facility] [address] [address] [address] Alexei Gonzales MONO # 0.6 103/ul Normal 0.3-0.8 [facility] Comment on above: Performed By: #### C BC #### [facility] [address] [address] [address] Alexei Gonzales Monocytes/100 WBC (Bld) 5.1 % Normal 1.7-12.0 [facility] Comment on above: Performed By: #### C BC #### [facility] [address] [place] [address] Dr. Alexei Gonzales NEUT # 8.3 103/ul Critically high 1.4-6.5 [facility] Comment on above: Performed By: #### C BC #### [facility] [address] [place] [address] Dr. Alexei Gonzales Neutrophils/100 WBC (Bld) 65.9 % Normal 43.0-75.0 [facility] Comment on above: Performed By: #### C BC #### [facility] [address] [address] [address] Alexei Gonzales Platelet mean volume (Bld) [Entitic vol] 10.1 fL Normal 9.5-13.5 [facility] Comment on above: Performed By: #### C BC #### [facility] [address] [address] [address] Alexei Gonzales PLT 373 103/ul Normal 150-450 [facility] Comment on above: Performed By: #### C BC #### [facility] [address] [place] [address] Dr. Alexei Gonzales RBC 4.61 106/ul Normal 4.20-5.40 [facility] Comment on above: Performed By: #### C BC #### [facility] [address] [address] [address] Alexei Gonzales WBC 12.5 103/ul Critically high 4.0-11.0 [facility] Comment on above: Performed By: #### C BC #### [facility] [address] [place] [address] Dr. Alexei Gonzales PREG HCG QUALon 11-22-2021 , QUAL Negative Normal NEGATIVE [facility] Comment on above: Performed By: #### C BC #### [facility] [address] [place] [address] Dr. Alexei Gonzales PROF 14(COMP METB)on 022 Albumin [Mass/Vol] 3.3 g/dL Critically low 3.4-5.0 [facility] Comment on above: Performed By: #### C BC #### [facility] [address] [place] [address] Dr. Alexei Gonzales Albumin/Globulin [Mass ratio] 0.8 {ratio} Normal [facility] Comment on above: Performed By: #### C BC #### [facility] [address] [place] [address] Dr. Alexei Gonzales ALP [Catalytic activity/Vol] 89 U/L Normal 46-116 [facility] Comment on above: Performed By: #### C BC #### [facility] [address] [place] [address] Dr. Alexei Gonzales ALT [Catalytic activity/Vol] 43 U/L Normal 14-59 [facility] Comment on above: Performed By: #### C BC #### [facility] [address] [place] [address] Dr. Alexei Gonzales Anion gap [Moles/Vol] 13.4 mmol/L Normal [facility] Comment on above: Performed By: #### C BC #### [facility] [address] [place] [address] Dr. Alexei Gonzales AST [Catalytic activity/Vol] 17 U/L Normal 15-37 [facility] Comment on above: Performed By: #### C BC #### [facility] [address] [address] [address] Alexei Gonzales Bilirubin [Mass/Vol] 0.3 mg/dL Normal 0.2-1.0 [facility] Comment on above: Performed By: #### C BC #### [facility] [address] [address] [address] Alexei Gonzales Calcium [Mass/Vol] 8.9 mg/dL Normal 8.5-10.1 [facility] Comment on above: Performed By: #### C BC #### [facility] [address] [address] [address] Alexei Gonzales Chloride [Moles/Vol] 103 mmol/L Normal 98-107 [facility] Comment on above: Performed By: #### C BC #### [facility] [address] [place] [address] Dr. Alexei Gonzales CO2 [Moles/Vol] 26.4 mmol/L Normal 21.0-32.0 [facility] Comment on above: Performed By: #### C BC #### [facility] [address] [place] [address] Dr. Alexei Gonzales Creatinine [Mass/Vol] 0.91 mg/dL Normal 0.55-1.02 [facility] Comment on above: Performed By: #### C BC #### [facility] [address] [place] [address] Dr. Alexei Gonzales EGFR-AF MONTSERRATIAN >60 Normal >=60 [facility] Comment on above: Performed By: #### C BC #### [facility] [address] [place] [address] Dr. Alexei Gonzales EGFR-NON AF MONTSERRATIAN >60 Normal >=60 [facility] Comment on above: Performed By: #### C BC #### [facility] [address] [place] [address] Dr. Alexei Gonzales Globulin (S) [Mass/Vol] 4.1 g/dL Normal [facility] Comment on above: Performed By: #### C BC #### [facility] [address] [place] [address] Dr. Alexei Gonzales Glucose [Mass/Vol] 151 mg/dL Critically high 74-106 [facility] Comment on above: Performed By: #### C BC #### [facility] [address] [address] [address] Alexei Gonzales Potassium [Moles/Vol] 3.8 mmol/L Normal 3.5-5.1 [facility] Comment on above: Performed By: #### C BC #### [facility] [address] [address] [address] Alexei Gonzales Protein [Mass/Vol] 7.4 g/dL Normal 6.4-8.2 [facility] Comment on above: Performed By: #### C BC #### [facility] [address] [address] [address] Alexei Gonzales Sodium [Moles/Vol] 139 mmol/L Normal 136-145 [facility] Comment on above: Performed By: #### C BC #### [facility] [address] [address] [address] Alexei Gonzales Urea nitrogen [Mass/Vol] 12.0 mg/dL Normal 7.0-18.0 [facility] Comment on above: Performed By: #### C BC #### [facility] [address] [place] [address] Dr. Alexei Gonzales Urea nitrogen/Creatinin e [Mass ratio] 13.2 mg/mg Normal [facility] Comment on above: Performed By: #### C BC #### [facility] [address] [address] [address] Alexei Gonzales TROPONIN, HIGH SENSITIVITYon 11-22-2021 HSTROP 5.0 pg/mL Normal 4.0-51.3 [facility] Comment on above: Result Comment: CUT- OFF POINTS HAVE BEEN ESTABLISHED BASED ON THE FOURTH UNIVERSAL DEFINITIONS OF MYOCARDIAL INFARCTION. THE UPPER REFERENCE LIMIT (URL) OF TROPONIN, DEFINED THE 99TH PERCENTILE OF cTnI DISTRIBUTION IN A REFERENCE POPULATION, HAS BEEN CONFIRMED THE DECISION THRESHOLD FOR [place] DIAGNOSIS. Performed By: #### C BC #### [facility] [address] [place] [address] Dr. Alexei Gonzales XR CHEST 1 Von [...] by: LUDMILA WINKLER Date: 2021-11-21 23:31 Normal [facility] PAP ACOG PANEL 2: 30 to 65on 10-22-2021 . . Normal [facility] Comment on above: Result Comment: Perf ormed at: WB Performed By: #### [id number] #### [facility] [address] [address] [address] Alexei Gonzales Age Gdln ACOG Testing 30-65 Normal [facility] Comment on above: Performed By: #### [id number] #### [facility] [address] [address] [address] Alexei Gonzales DIAGNOSIS: Comment Normal [facility] Comment on above: Result Comment: NEGA TIVE FOR INTRAEPITHELIAL LESION OR MALIGNANCY. Performed at: WB Performed By: #### [id number] #### [facility] [address] [address] [address] Alexei Gonzales HPV Aptima Negative Normal Negative [facility] Comment on above: Result Comment: This nucleic acid amplification test detects fourteen high-risk HPV types (16,18,31,33,35,39,45,51,52,56,58,59,66,68) without differentiation. Performed at: =G Performed By: #### [id number] #### [facility] [address] [address] [address] Alexei Gonzales Methodology: Comment Normal [facility] Comment on above: Result Comment: This liquid based ThinPrep(R) pap test was screened with the use of an image guided system. Performed at: WB Performed By: #### [id number] #### [facility] [address] [address] [address] Alexei Gonzales Note: Comment [facility] Comment on above: Result Comment: The Pap smear is a screening test designed to aid in the detection of premalignant and malignant conditions of the uterine cervix. It is not a diagnostic procedure and should not be used as the sole means of detecting cervical cancer. Both false-positive and false-negative reports do occur. . Performed at: WB Performed By: #### [id number] #### [facility] [address] [place] [address] [id number] [address] Alexei Gonzales Performed by: Comment Normal [facility] Comment on above: Result Comment: Elis Abel, Founder And Chief Executive Officer (ASCP) Performed at: WB Performed By: #### [id number] #### [facility] [address] [place] [address] [address] [address] Alexei Gonzales Specimen adequacy: Comment Normal [facility] Comment on above: Result Comment: Sati sfactory for evaluation. Endocervical and/or squamous metaplastic cells (endocervical component) are present. Performed at: WB Performed By: #### [id number] #### [facility] [address] [place] [address] [address] Alexei Gonzales Vital Signs Date Time Vital Sign Value Performing Clinician Facility 01-27-2025 14:45-0400 Body mass index (BMI) [Ratio] 46.3 kg/m2 [employer] Work Phone: [facility] 01-27-2025 14:45-0400 Body weight 122.36 kg Chuy Johny [employer] Work Phone: [facility] 01-27-2025 14:45-0400 Diastolic blood pressure 90 mm[Hg] Chuy Johny DO Work Phone: [facility] 01-27-2025 14:45-0400 Systolic blood pressure 136 mm[Hg] Chuy Johny DO Work Phone: [facility] 01-15-2025 15:30-0400 Body height 162.56 cm Whit Ca NP-C Work Phone: [facility] 01-15-2025 15:30-0400 Body mass index (BMI) [Ratio] 47.7 kg/m2 Whit Aichholz CUSTOMER CONTACT SPECIALIST-C Work Phone: [facility] 01-15-2025 15:30-0400 Body temperature 98.5 [degF] Whit Aichholz CUSTOMER CONTACT SPECIALIST-C Work Phone: [facility] 01-15-2025 15:30-0400 Body weight 126.32 kg Whit Aichholz CUSTOMER CONTACT SPECIALIST-C Work Phone: [facility] 01-15-2025 15:30-0400 Diastolic blood pressure 76 mm[Hg] Whit Aichholz CUSTOMER CONTACT SPECIALIST-C Work Phone: [facility] 01-15-2025 15:30-0400 Heart rate 82 /min Whit Aichholz CUSTOMER CONTACT SPECIALIST-C Work Phone: [facility] 01-15-2025 15:30-0400 Respiratory rate 20 /min Whit Aichholz CUSTOMER CONTACT SPECIALIST-C Work Phone: [facility] 01-15-2025 15:30-0400 SaO2% (BldA) [Mass fraction] 97 % Whit Aichholz CUSTOMER CONTACT SPECIALIST-C Work Phone: [facility] 01-15-2025 15:30-0400 Systolic blood pressure 126 mm[Hg] Whit Aichholz CUSTOMER CONTACT SPECIALIST-C Work Phone: [facility] 01-01-2025 16:01-0400 Body height 162.6 cm Chuy Johny DO Work Phone: [facility] 01-01-2025 16:01-0400 Body mass index (BMI) [Ratio] 46.86 kg/m2 Chuy Johny DO Work Phone: [facility] 01-01-2025 16:01-0400 Body weight 123.83 kg Chyu Johny DO Work Phone: [facility] 01-01-2025 16:01-0400 Diastolic blood pressure 80 mm[Hg] Chuy Johny DO Work Phone: [facility] 01-01-2025 16:01-0400 Systolic blood pressure 130 mm[Hg] Chuy Johny DO Work Phone: [facility] 11-30-2024 12:12-0400 Body mass index (BMI) [Ratio] 47.89 kg/m2 Nico Pandey DO Work Phone: [facility] 11-30-2024 12:12-0400 Body temperature 97.59 [degF] Nico Pandey DO Work Phone: [facility] 11-30-2024 12:12-0400 Body weight 126.55 kg Nico Pandey DO Work Phone: [facility] 11-30-2024 12:12-0400 Diastolic blood pressure 74 mm[Hg] Nico Pandey DO Work Phone: [facility] 11-30-2024 12:12-0400 Heart rate 97 /min Nico Pandey DO Work Phone: [facility] 11-30-2024 12:12-0400 SaO2% (BldA) [Mass fraction] 93 % Nico Pandey DO Work Phone: [facility] 11-30-2024 12:12-0400 Systolic blood pressure 128 mm[Hg] Nico Pandey DO Work Phone: [facility] 11-13-2024 15:56-0400 Diastolic blood pressure 84 mm[Hg] Whit Ca CUSTOMER CONTACT SPECIALIST Work Phone: [facility] 11-13-2024 15:56-0400 Systolic blood pressure 136 mm[Hg] Whit Roby CUSTOMER CONTACT SPECIALIST Work Phone: [facility] 11-13-2024 15:22-0400 Body mass index (BMI) [Ratio] 47.96 kg/m2 Whit Roby CUSTOMER CONTACT SPECIALIST Work Phone: [facility] 11-13-2024 15:22-0400 Body temperature 98.49 [degF] Whit Ca CUSTOMER CONTACT SPECIALIST Work Phone: [facility] 11-13-2024 15:22-0400 Body weight 126.73 kg Whit Hodgedelvisz CUSTOMER CONTACT SPECIALIST Work Phone: [facility] 11-13-2024 15:22-0400 Heart rate 98 /min Whit Ayeshaholz CUSTOMER CONTACT SPECIALIST Work Phone: [facility] 11-13-2024 15:22-0400 Respiratory rate 18 /min Whitcarolina Hodgedelvisz CUSTOMER CONTACT SPECIALIST Work Phone: [facility] 11-13-2024 15:22-0400 SaO2% (BldA) [Mass fraction] 98 % Whit Moralesbalz CUSTOMER CONTACT SPECIALIST Work Phone: [facility] 08-19-2024 16:09-0400 Body height 162.6 cm Cheyenne Kimberlymor CUSTOMER CONTACT SPECIALIST Work Phone: [facility] 08-19-2024 16:09-0400 Body mass index (BMI) [Ratio] 48.06 kg/m2 Cheyenne Kimberlymor CUSTOMER CONTACT SPECIALIST Work Phone: [facility] 08-19-2024 16:09-0400 Body weight 127.01 kg Cheyenne Gillmor CUSTOMER CONTACT SPECIALIST Work Phone: [facility] 08-19-2024 16:09-0400 Diastolic blood pressure 88 mm[Hg] Cheyenne Gillmor CUSTOMER CONTACT SPECIALIST Work Phone: [facility] 08-19-2024 16:09-0400 Heart rate 65 /min Cheyenne Kimberlymor CUSTOMER CONTACT SPECIALIST Work Phone: [facility] 08-19-2024 16:09-0400 Systolic blood pressure 157 mm[Hg] Cheyenne Gillmor CUSTOMER CONTACT SPECIALIST Work Phone: [facility] 08-12-2024 15:35-0400 Body mass index (BMI) [Ratio] 49.13 kg/m2 Whit Carmenhholz CUSTOMER CONTACT SPECIALIST Work Phone: [facility] 08-12-2024 15:35-0400 Body temperature 98.49 [degF] Whit Moralesbalz CUSTOMER CONTACT SPECIALIST Work Phone: [facility] 08-12-2024 15:35-0400 Body weight 129.82 kg Whit Carmenhholz CUSTOMER CONTACT SPECIALIST Work Phone: [facility] 08-12-2024 15:35-0400 Diastolic blood pressure 84 mm[Hg] Whit Aichholz CUSTOMER CONTACT SPECIALIST Work Phone: [facility] 08-12-2024 15:35-0400 Heart rate 75 /min Whit Aichholz CUSTOMER CONTACT SPECIALIST Work Phone: [facility] 08-12-2024 15:35-0400 Respiratory rate 18 /min Whit Aichholz CUSTOMER CONTACT SPECIALIST Work Phone: [facility] 08-12-2024 15:35-0400 SaO2% (BldA) [Mass fraction] 97 % Whit Aichholz CUSTOMER CONTACT SPECIALIST Work Phone: [facility] 08-12-2024 15:35-0400 Systolic blood pressure 120 mm[Hg] Whit Aichholz CUSTOMER CONTACT SPECIALIST Work Phone: [facility] 06-17-2024 15:15-0500 Body mass index (BMI) [Ratio] 47.74 kg/m2 Chuy Johny DO Work Phone: [facility] 06-17-2024 15:15-0500 Body weight 126.15 kg Chuy Johny DO Work Phone: [facility] 06-17-2024 15:15-0500 Diastolic blood pressure 84 mm[Hg] Chuy Johny DO Work Phone: [facility] 06-17-2024 15:15-0500 Systolic blood pressure 132 mm[Hg] Chuy Johny DO Work Phone: [facility] 06-10-2024 15:36-0500 Body height 162.6 cm Whit Aichholz CUSTOMER CONTACT SPECIALIST Work Phone: [facility] 06-10-2024 15:36-0500 Body mass index (BMI) [Ratio] 48.3 kg/m2 Whit Aichholz CUSTOMER CONTACT SPECIALIST Work Phone: [facility] 06-10-2024 15:36-0500 Body temperature 97.81 [degF] Whit Hodgelamar CUSTOMER CONTACT SPECIALIST Work Phone: [facility] 06-10-2024 15:36-0500 Body weight 127.64 kg Whit Hodgelamar CUSTOMER CONTACT SPECIALIST Work Phone: [facility] 06-10-2024 15:36-0500 Diastolic blood pressure 84 mm[Hg] Whit Hodgelamar CUSTOMER CONTACT SPECIALIST Work Phone: [facility] 06-10-2024 15:36-0500 Heart rate 78 /min Whit Moraleslainey CUSTOMER CONTACT SPECIALIST Work Phone: [facility] 06-10-2024 15:36-0500 Respiratory rate 19 /min Whit Hodgelamar CUSTOMER CONTACT SPECIALIST Work Phone: [facility] 06-10-2024 15:36-0500 SaO2% (BldA) [Mass fraction] 98 % Whit Hodgelamar CUSTOMER CONTACT SPECIALIST Work Phone: [facility] 06-10-2024 15:36-0500 Systolic blood pressure 130 mm[Hg] Whit Hodgelamar CUSTOMER CONTACT SPECIALIST Work Phone: [facility] 05-29-2024 14:09-0500 Body mass index (BMI) [Ratio] 49.09 kg/m2 Chuy Johny DO Work Phone: [facility] 05-29-2024 14:09-0500 Body weight 129.73 kg Chuy Johny DO Work Phone: [facility] 05-29-2024 14:09-0500 Diastolic blood pressure 82 mm[Hg] Chuy Johny DO Work Phone: [facility] 05-29-2024 14:09-0500 Systolic blood pressure 126 mm[Hg] Chuy Johny DO Work Phone: [facility] 05-09-2024 15:52-0500 Body height 162.6 cm Whit Moraleslainey CUSTOMER CONTACT SPECIALIST Work Phone: [facility] 05-09-2024 15:52-0500 Body mass index (BMI) [Ratio] 48.89 kg/m2 Whit Moralesbalz CUSTOMER CONTACT SPECIALIST Work Phone: [facility] 05-09-2024 15:52-0500 Body temperature 98.8 [degF] Whit Hodgedelvisz CUSTOMER CONTACT SPECIALIST Work Phone: [facility] 05-09-2024 15:52-0500 Body weight 129.18 kg Whitcarolina Moralesbalz CUSTOMER CONTACT SPECIALIST Work Phone: [facility] 05-09-2024 15:52-0500 Diastolic blood pressure 60 mm[Hg] Whit Moralesarkiholz CUSTOMER CONTACT SPECIALIST Work Phone: [facility] 05-09-2024 15:52-0500 Heart rate 79 /min Whitcarolina Moralesarikholz CUSTOMER CONTACT SPECIALIST Work Phone: [facility] 05-09-2024 15:52-0500 Respiratory rate 20 /min Whitcarolina Hodgeholz CUSTOMER CONTACT SPECIALIST Work Phone: [facility] 05-09-2024 15:52-0500 SaO2% (BldA) [Mass fraction] 99 % Whit Hodgedelvisz CUSTOMER CONTACT SPECIALIST Work Phone: [facility] 05-09-2024 15:52-0500 Systolic blood pressure 150 mm[Hg] Whit Moralesarikholz CUSTOMER CONTACT SPECIALIST Work Phone: [facility] 04-29-2024 15:35-0500 Blood Pressure Location Audi FRANCOIS [facility] 04-29-2024 15:35-0500 Body temperature 98.6 [degF] Audi FRANCOIS [facility] 04-29-2024 15:35-0500 Diastolic blood pressure 84 mm[Hg] Audi FRANCOIS [facility] 04-29-2024 15:35-0500 Heart rate 82 /min Audi FRANCOIS [facility] 04-29-2024 15:35-0500 Respiratory rate 18 /min Audi FRANCOIS [facility] 04-29-2024 15:35-0500 Systolic blood pressure 132 mm[Hg] Audi FRANCOIS [facility] 04-15-2024 16:35-0500 Body height 162.6 cm Whit Roby CUSTOMER CONTACT SPECIALIST Work Phone: [facility] 04-15-2024 16:35-0500 Body mass index (BMI) [Ratio] 49.47 kg/m2 Whit Desiraez CUSTOMER CONTACT SPECIALIST Work Phone: [facility] 04-15-2024 16:35-0500 Body temperature 98.49 [degF] Whit Desiraez CUSTOMER CONTACT SPECIALIST Work Phone: [facility] 04-15-2024 16:35-0500 Body weight 130.73 kg Whit Carmenhholz CUSTOMER CONTACT SPECIALIST Work Phone: [facility] 04-15-2024 16:35-0500 Diastolic blood pressure 80 mm[Hg] Whit Desiraez CUSTOMER CONTACT SPECIALIST Work Phone: [facility] 04-15-2024 16:35-0500 Heart rate 79 /min Whit Desiraez CUSTOMER CONTACT SPECIALIST Work Phone: [facility] 04-15-2024 16:35-0500 Respiratory rate 20 /min Whit Carmenhholz CUSTOMER CONTACT SPECIALIST Work Phone: [facility] 04-15-2024 16:35-0500 SaO2% (BldA) [Mass fraction] 99 % Whit Desiraez CUSTOMER CONTACT SPECIALIST Work Phone: [facility] 04-15-2024 16:35-0500 Systolic blood pressure 128 mm[Hg] Whit Aichholz CUSTOMER CONTACT SPECIALIST Work Phone: [facility] 03-06-2024 13:19-0400 Body height 162.6 cm Anam Kirkland DO Work Phone: [facility] 03-06-2024 13:19-0400 Body mass index (BMI) [Ratio] 48.58 kg/m2 Anam Kirkland DO Work Phone: [facility] 03-06-2024 13:19-0400 Body weight 128.37 kg Anam Kirkland DO Work Phone: [facility] 03-06-2024 13:19-0400 Diastolic blood pressure 76 mm[Hg] Anam Kirkland DO Work Phone: [facility] 03-06-2024 13:19-0400 Heart rate 72 /min Anamthomas Kirkland DO Work Phone: [facility] 03-06-2024 13:19-0400 Respiratory rate 14 /min Anamthomas Kirkland DO Work Phone: [facility] 03-06-2024 13:19-0400 SaO2% (BldA) [Mass fraction] 97 % Anam Kirkland DO Work Phone: [facility] 03-06-2024 13:19-0400 Systolic blood pressure 122 mm[Hg] Anam Kirkland DO Work Phone: [facility] 03-05-2024 15:53-0400 Body height 162.6 cm Whit Ca CUSTOMER CONTACT SPECIALIST Work Phone: [facility] 03-05-2024 15:53-0400 Body mass index (BMI) [Ratio] 48.65 kg/m2 Whit Ca CUSTOMER CONTACT SPECIALIST Work Phone: [facility] 03-05-2024 15:53-0400 Body temperature 97.81 [degF] Whit Ca CUSTOMER CONTACT SPECIALIST Work Phone: [facility] 03-05-2024 15:53-0400 Body weight 128.55 kg Whit Ca CUSTOMER CONTACT SPECIALIST Work Phone: [facility] 03-05-2024 15:53-0400 Diastolic blood pressure 104 mm[Hg] Whit Ca CUSTOMER CONTACT SPECIALIST Work Phone: [facility] 03-05-2024 15:53-0400 Heart rate 98 /min Whit Ca CUSTOMER CONTACT SPECIALIST Work Phone: [facility] 03-05-2024 15:53-0400 Respiratory rate 20 /min Whit Ca CUSTOMER CONTACT SPECIALIST Work Phone: [facility] 03-05-2024 15:53-0400 SaO2% (BldA) [Mass fraction] 98 % Whit Ca CUSTOMER CONTACT SPECIALIST Work Phone: [facility] 03-05-2024 15:53-0400 Systolic blood pressure 144 mm[Hg] Whit Ca CUSTOMER CONTACT SPECIALIST Work Phone: [facility] 02-28-2024 15:48-0400 Body height 162.6 cm Mark Josef DO Work Phone: [facility] 02-28-2024 15:48-0400 Body mass index (BMI) [Ratio] 49.23 kg/m2 Mark Josef DO Work Phone: [facility] 02-28-2024 15:48-0400 Body weight 130.09 kg Mark Josef DO Work Phone: [facility] 02-28-2024 15:48-0400 Diastolic blood pressure 86 mm[Hg] Mark Josef DO Work Phone: [facility] 02-28-2024 15:48-0400 Heart rate 88 /min Mark Josef DO Work Phone: [facility] 02-28-2024 15:48-0400 SaO2% (BldA) [Mass fraction] 100 % Mark Josef DO Work Phone: [facility] 02-28-2024 15:48-0400 Systolic blood pressure 132 mm[Hg] Mark Josef DO Work Phone: [facility] 01-30-2024 15:47-0400 Body height 162.6 cm Whit Ca CUSTOMER CONTACT SPECIALIST Work Phone: [facility] 01-30-2024 15:47-0400 Body mass index (BMI) [Ratio] 48.85 kg/m2 Whitcarolina Hodgeholz CUSTOMER CONTACT SPECIALIST Work Phone: [facility] 01-30-2024 15:47-0400 Body temperature 98.49 [degF] Whitcarolina Merrillz CUSTOMER CONTACT SPECIALIST Work Phone: [facility] 01-30-2024 15:47-0400 Body weight 129.09 kg Whitcarolina Merrillz CUSTOMER CONTACT SPECIALIST Work Phone: [facility] 01-30-2024 15:47-0400 Diastolic blood pressure 84 mm[Hg] Whit Hodgeholz CUSTOMER CONTACT SPECIALIST Work Phone: [facility] 01-30-2024 15:47-0400 Heart rate 73 /min Whitcarolina Hodgeholz CUSTOMER CONTACT SPECIALIST Work Phone: [facility] 01-30-2024 15:47-0400 Respiratory rate 18 /min Whitcarolina Hodgeholz CUSTOMER CONTACT SPECIALIST Work Phone: [facility] 01-30-2024 15:47-0400 SaO2% (BldA) [Mass fraction] 98 % Whitcarolina Merrillz CUSTOMER CONTACT SPECIALIST Work Phone: [facility] 01-30-2024 15:47-0400 Systolic blood pressure 138 mm[Hg] Whit Hodgeholz CUSTOMER CONTACT SPECIALIST Work Phone: [facility] 04-21-2023 09:57-0500 Blood Pressure Location Audi FRANCO[facility] 04-21-2023 09:57-0500 Diastolic blood pressure 80 mm[Hg] Audi FRANCOIS [facility] 04-21-2023 09:57-0500 Heart rate 68 /min Audi FRANCOIS [facility] 04-21-2023 09:57-0500 Respiratory rate 16 /min Audi FRANCOIS [facility] 04-21-2023 09:57-0500 Systolic blood pressure 135 mm[Hg] Audi FRANCOIS [facility] 04-08-2022 14:15-0500 Body height 162.56 cm Luciana Flores Other [employer] Other 04-08-2022 14:15-0500 Body mass index (BMI) [Ratio] 50.46 kg/m2 Luciana Flores Other [employer] Other 04-08-2022 14:15-0500 Body temperature 98.4 [degF] Luciana Flores Other [employer] Other 04-08-2022 14:15-0500 Body weight 133.36 kg Luciana Flores Other [employer] Other 04-08-2022 14:15-0500 Respiratory rate 18 /min Luciana Flores Other [employer] Other 04-08-2022 14:15-0500 SaO2% (BldA) [Mass fraction] 99 % Luciana Flores Other [employer] Other 04-04-2022 09:23-0500 Blood Pressure Location Audi FRANCOIS [facility] 04-04-2022 09:23-0500 Diastolic blood pressure 89 mm[Hg] Audi FRANCOIS [facility] 04-04-2022 09:23-0500 Heart rate 75 /min Audi FRANCOIS [facility] 04-04-2022 09:23-0500 Respiratory rate 16 /min Audi FRANCOIS [facility] 04-04-2022 09:23-0500 Systolic blood pressure 136 mm[Hg] Audi FRANCOIS [facility] 12-30-2021 12:56-0400 Body height 162.6 cm Taiwo Torres MD Work Phone: [facility] 12-30-2021 12:56-0400 Body weight 136.08 kg Taiwo Torres MD Work Phone: [facility] 12-30-2021 12:56-0400 Diastolic blood pressure 72 mm[Hg] Taiwo Torres MD Work Phone: [facility] 12-30-2021 12:56-0400 Systolic blood pressure 116 mm[Hg] Taiwo Torres MD Work Phone: [facility] 08-27-2021 17:50-0400 Body height 162.56 cm Luciana Flores Other [employer] Other 08-27-2021 17:50-0400 Body mass index (BMI) [Ratio] 49.77 kg/m2 Luciana Flores Other [employer] Other 08-27-2021 17:50-0400 Body temperature 97.7 [degF] Luciana Flores Other [employer] Other 08-27-2021 17:50-0400 Body weight 131.54 kg Luciana Flores Other [employer] Other 08-27-2021 17:50-0400 Respiratory rate 18 /min Luciana Flores Other [employer] Other 08-27-2021 17:50-0400 SaO2% (BldA) [Mass fraction] 98 % Luciana Flores Other [employer] Other Encounters Encounter Date Encounter Type Care Provider Facility Start: 01-27-2025 End: 01-27-2025 Patient encounter procedure Chuy Murrayzio DO Work Phone: [facility] Comment on above: Atypical squamous ce ll changes of undetermined significance (ASCUS) on cervical cytology with positive high risk human papilloma virus (HPV); Combined abdominal and pelvic pain Start: 01-27-2025 End: 01-27-2025 ambulatory CHUY JOHNY Not Available Start: 01-27-2025 End: 01-27-2025 ambulatory Whit Ca NP-C Work Phone: [facility] Work Phone: Start: 01-27-2025 End: 01-27-2025 Departed Referred Chuy Mcclain -[facility] Start: 01-20-2025 End: 01-20-2025 ambulatory GRAHAM GARCIA Not Available Start: 01-15-2025 End: 01-15-2025 ambulatory Whit Ca NP-C Work Phone: [facility] Work Phone: Start: 01-15-2025 End: 01-15-2025 Patient encounter procedure Whit Ca NP-C -[facility] Work Phone: Start: 01-13-2025 End: 01-13-2025 Clinical Support [facility] Comment on above: PTSD (post-traumatic stress disorder) ; Major depressive disorder, single episode, moderate with anxious distress (HCC); Chronic health problem Start: 01-13-2025 End: 01-13-2025 Bamboo flowsheet [facility] Start: 01-13-2025 End: 01-13-2025 Bamboo flowsheet Patric Samson-Sky MONEY POSITION OFFICER [facility] Start: 01-09-2025 Patient encounter procedure Whit Roby CUSTOMER CONTACT SPECIALISTPatrickC Work Phone: [facility] Start: 01-01-2025 Non-patient / Non-visit Chuy Johny -[facility] Work Phone: Start: 01-01-2025 End: 01-01-2025 History of abnormal cervical Papanicolaou smear Chuy Johny DO Work Phone: [facility] Start: 01-01-2025 End: 01-01-2025 Office outpatient visit 15 minutes Chuy Johny DO Work Phone: [facility] Comment on above: Pelvic pain in femal e (Primary Dx); LGSIL of cervix of undetermined significance; Pap smear to confirm normal after abnormal result Start: 01-01-2025 End: 01-01-2025 ambulatory CHUY JOHNY Not Available Start: 01-01-2025 End: 01-01-2025 Bamboo flowsheet Chuy Johny DO Work Phone: [facility] Start: 01-01-2025 End: 01-08-2025 Bamboo flowsheet Chuy Johny DO Work Phone: [facility] Start: 01-01-2025 End: 01-08-2025 Clinisync Result Encounter Chuy Johny DO Work Phone: [facility] Unsolicited Start: 12-19-2024 End: 12-19-2024 Bamboo flowsheet Zacjoseph Archer [employer]Y POSITION OFFICER [facility] Start: 12-19-2024 End: 12-19-2024 Bamboo flowsheet Zacjoseph Valdivia-Sky [employer]ONEY POSITION OFFICER [facility] Start: 12-19-2024 End: 12-19-2024 Clinical Support Patric Archer [employer] POSITION OFFICER [facility] Comment on above: PTSD (post-traumatic stress disorder) ; Major depressive disorder, single episode, moderate with anxious distress (HCC); Work-related stress Start: 12-05-2024 End: 12-05-2024 Clinical Support Patric Archer [facility] Comment on above: PTSD (post-traumatic stress disorder) ; Major depressive disorder, single episode, moderate with anxious distress (HCC); Work-related stress Start: 12-05-2024 End: 12-05-2024 Bamboo flowsheet Patric Archer [facility] Start: 12-05-2024 End: 12-05-2024 Bamboo flowsheet joseph Archer [facility] Start: 11-30-2024 End: 11-30-2024 Office outpatient visit 25 minutes Nico Pandey DO Work Phone: [facility] Comment on above: Streptococcal pharyn gitis (Primary Dx); Pharyngitis, unspecified etiology; Cough, unspecified type Start: 11-30-2024 End: 11-30-2024 ambulatory NICO PANDEY Not Available Start: 11-20-2024 End: 11-20-2024 Clinical Support Patric Archer [facility] Comment on above: PTSD (post-traumatic stress disorder) ; Major depressive disorder, single episode, moderate with anxious distress (HCC); Work-related stress Start: 11-14-2024 End: 11-14-2024 Clinisync Result Encounter Whit Ca NP Work Phone: [facility] External Department Unsolicited Start: 11-14-2024 End: 11-14-2024 Clinisync Result Encounter Whit Ca NP Work Phone: [facility] External Department Unsolicited Start: 11-13-2024 End: 11-13-2024 Office outpatient visit 25 minutes Whit Ca NP Work Phone: [facility] Comment on above: Primary hypertension (Primary Dx); FLAVIO (obstructive sleep apnea); Morbid (severe) obesity due to excess calories ([facility]-HCC); Pre-diabetes; Panic attack as reaction to stress ; PTSD (post-traumatic stress disorder) ; Major depressive disorder, single episode, moderate with anxious distress (HCC); Epistaxis; Erythema ab igne Start: 11-13-2024 End: 11-13-2024 ambulatory WHIT ROBY Not Available Start: 11-13-2024 End: 11-13-2024 Bamboo flowsheet Whit Carmenariklamar CUSTOMER CONTACT SPECIALIST Work Phone: [facility] Start: 11-13-2024 End: 11-13-2024 Bamboo flowsheet Whit Carmenariklamar CUSTOMER CONTACT SPECIALIST Work Phone: [facility] Start: 11-06-2024 End: 11-06-2024 Bamboo flowsheet Rhanda Addison-Sky MONEY POSITION OFFICER [facility] Start: 11-06-2024 End: 11-06-2024 Bamboo flowsheet Rhanda Addison-Sky [facility] Start: 11-06-2024 End: 11-06-2024 Clinical Support Rhanda Samson-Sky [facility] Comment on above: PTSD (post-traumatic stress disorder) ; Major depressive disorder, single episode, moderate with anxious distress (HCC); Work-related stress Start: 11-05-2024 End: 11-06-2024 Refill Whit Roby CUSTOMER CONTACT SPECIALIST Work Phone: [facility] Comment on above: PTSD (post-traumatic stress disorder) ; Major depressive disorder, single episode, moderate with anxious distress (HCC) Start: 10-23-2024 End: 10-23-2024 Clinical Support Rhanda Addison-Sky MONEY POSITION OFFICER [facility] Comment on above: Major depressive dis order, single episode, moderate with anxious distress (HCC); PTSD (post-traumatic stress disorder) Start: 10-23-2024 End: 10-23-2024 Bamboo flowsheet Rhanda Addison-Sky [employer] POSITION OFFICER [facility] Start: 10-23-2024 End: 10-23-2024 Bamboo flowsheet Rhanda Addison-Sky MONEY POSITION OFFICER [facility] Start: 10-10-2024 End: 10-10-2024 Clinical Support Rhanda Addison-Sky [employer]ONEY POSITION OFFICER [facility] Comment on above: PTSD (post-traumatic stress disorder) (CMS/HCC); Major depressive disorder, single episode, moderate with anxious distress (HCC) (CMS/HCC); Work-related stress Start: 10-10-2024 End: 10-10-2024 Bamboo flowsheet Rhanda Samson-Sky [facility] Start: 10-10-2024 End: 10-10-2024 Bamboo flowsheet Rhanda Addison-Sky [facility] Start: 09-24-2024 End: 09-24-2024 Telephone encounter Whit Ca NP Work Phone: [facility] Start: 09-23-2024 End: 09-23-2024 Clinical Support Rhjoseph Addison-Sky [facility] Comment on above: PTSD (post-traumatic stress disorder) (CMS/HCC); Major depressive disorder, single episode, moderate with anxious distress (HCC) (CMS/HCC) Start: 09-23-2024 End: 09-23-2024 Bamboo flowsheet Rhanda Addison-Sky [facility] Start: 09-23-2024 End: 09-23-2024 Bamboo flowsheet Rhanda Samson-Sky [facility] Start: 08-30-2024 End: 08-30-2024 Refill Whit Ca NP Work Phone: [facility] Comment on above: PTSD (post-traumatic stress disorder) (CMS/HCC) (Primary Dx); Major depressive disorder, single episode, moderate with anxious distress (HCC) (CMS/HCC) Start: 08-21-2024 End: 08-21-2024 Clinical Support Rhjoseph Addison-Sky [facility] Comment on above: PTSD (post-traumatic stress disorder) (CMS/HCC); Major depressive disorder, single episode, moderate with anxious distress (HCC) (CMS/HCC) Start: 08-19-2024 End: 08-19-2024 ambulatory CHEYENNE AHUMADA Not Available Start: 08-19-2024 End: 08-19-2024 Office outpatient visit 25 minutes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 Unspecified [...] excess calories ([facility]) Major depressive disorder, single episode, moderate (HCC)- Primary Major depressive disorder, single episode, moderate Morbid (severe) obesity due to excess calories ([facility]) Body mass index (BMI) 45.0-49.9, adult ([facility] FLAVIO (obstructive sleep apnea) Obstructive sleep apnea [...] gangrene Body mass index (BMI) 45.0-49.9, adult ([facility] Morbid (severe) obesity due to excess calories ([facility] Primary hypertension- Primary Unspecified essential hypertension FLAVIO [...] 50.0-59.9, adult ([facility]) Panic attack as reaction to stress Primary [...] 45.0-49.9, adult ([facility]) FLAVIO (obstructive sleep apnea) Obstructive sleep apnea [...] 45.0-49.9, adult ([facility]) Morbid (severe) obesity due to excess calories ([facility]) Primary hypertension- Primary Unspecified essential hypertension FLAVIO (obstructive sleep apnea) Obstructive sleep apnea (adult) (pediatric) Morbid (severe) obesity due to excess calories ([facility]) Major depressive disorder, single episode, moderate with [...] Morbid obesity ([facility]) Morbid obesity Environmental and seasonal allergies Influenza B Influenza with other respiratory manifestations Primary hypertension- Primary Unspecified essential hypertension Morbid obesity ([facility]) Morbid obesity FLAVIO (obstructive sleep apnea) Obstructive sleep apnea (adult) (pediatric) Primary hypertension- Primary Unspecified essential hypertension Morbid obesity ([facility]) Morbid obesity FLAVIO (obstructive sleep apnea) Obstructive sleep apnea (adult) (pediatric) Primary hypertension- Primary Unspecified essential hypertension Panic attack as reaction to stress Primary hypertension- Primary Unspecified essential hypertension Morbid (severe) obesity due to excess calories ([facility]) Body mass index (BMI) 50.0-59.9, adult [place] Panic attack as reaction to stress Primary hypertension- Primary Unspecified essential hypertension FLAVIO (obstructive sleep apnea) Obstructive sleep apnea (adult) (pediatric) Morbid (severe) obesity due to excess calories ([facility]) Ventral hernia without obstruction or gangrene Unspecified [...] excess calories ([facility]) Major depressive disorder, single episode, moderate (HCC)- Primary Major depressive disorder, single episode, moderate Morbid (severe) obesity due to excess calories ([facility]) Body mass index (BMI) 45.0-49.9, adult (DEPARTMENT [...] 45.0-49.9, adult ([facility]) Morbid (severe) obesity due to excess calories ([facility]) Primary hypertension- Primary Unspecified essential hypertension FLAVIO (obstructive sleep apnea) Obstructive sleep apnea (adult) (pediatric) Morbid (severe) obesity due to excess calories ([facility]) Major depressive disorder, single episode, moderate with anxious distress (HCC) Major depressive disorder, single episode, moderate (HCC) Major depressive disorder, single episode, moderate Pain, dental Primary hypertension- Primary Unspecified essential hypertension FLAVIO (obstructive sleep apnea) Obstructive sleep apnea (adult) (pediatric) Morbid (severe) obesity due to excess calories ([facility]) Pre-diabetes Other abnormal glucose Panic attack as [...] Morbid obesity ([facility]) Morbid obesity FLAVIO (obstructive sleep apnea) Obstructive sleep apnea (adult) (pediatric) Primary hypertension- Primary Unspecified essential hypertension Panic attack as reaction to stress Primary hypertension- Primary Unspecified essential hypertension Morbid (severe) obesity due to excess calories ([facility]) Body mass index (BMI) 50.0-59.9, adult ([facility]) Panic attack as reaction to stress Primary [...] excess calories ([facility]) Major depressive disorder, single episode, moderate (HCC)- Primary Major depressive disorder, single episode, moderate Morbid (severe) obesity due to excess calories ([facility]) Body mass index (BMI) 45.0-49.9, adult ([facility]) FLAVIO (obstructive sleep apnea) Obstructive sleep apnea [...] 45.0-49.9, adult ([facility]) Morbid (severe) obesity due to excess calories ([facility]) Primary hypertension- Primary Unspecified essential hypertension FLAVIO [...] excess calories ([facility]) Pre-diabetes Other abnormal glucose Panic attack as [...] excess calories ([facility]) Body mass index (BMI) 50.0-59.9, adult ([facility]) Panic attack as reaction to stress Primary [...] 45.0-49.9, adult ([facility]) FLAVIO (obstructive sleep apnea) Obstructive sleep apnea [...] 45.0-49.9, adult ([facility]) Morbid (severe) obesity due to excess calories ([facility]) Primary hypertension- Primary Unspecified essential hypertension FLAVIO [...] excess calories ([facility]) Pre-diabetes Other abnormal glucose Panic attack as [...] Morbid obesity ([facility]) Morbid obesity Environmental and seasonal allergies Influenza B Influenza with other respiratory manifestations Primary hypertension- Primary Unspecified essential hypertension Morbid obesity ([facility]) Morbid obesity FLAVIO (obstructive sleep apnea) Obstructive sleep apnea (adult) (pediatric) Primary hypertension- Primary Unspecified essential hypertension Morbid obesity ([facility]) Morbid obesity FLAVIO (obstructive sleep apnea) Obstructive sleep apnea (adult) (pediatric) Primary hypertension- Primary Unspecified essential hypertension Panic attack as reaction to stress Primary hypertension- Primary Unspecified essential hypertension Morbid (severe) obesity due to excess calories ([facility]) Body mass index (BMI) 50.0-59.9, adult [place] Panic attack as reaction to stress Primary hypertension- Primary Unspecified essential hypertension FLAVIO (obstructive sleep apnea) Obstructive sleep apnea (adult) (pediatric) Morbid (severe) obesity due to excess calories ([facility]) Ventral hernia without obstruction or gangrene Unspecified [...] excess calories ([facility] Ventral hernia without obstruction or gangrene Unspecified [facility] Body mass index (BMI) 45.0-49.9, adult (DEPARTMENT [...] 45.0-49.9, adult ([facility]) Morbid (severe) obesity due to excess calories ([facility]) Primary hypertension- Primary Unspecified essential hypertension FLAVIO (obstructive sleep apnea) Obstructive sleep apnea (adult) (pediatric) Morbid (severe) obesity due to excess calories ([facility]) Major depressive disorder, single episode, moderate with [...] excess calories ([facility]) Body mass index (BMI) 50.0-59.9, adult ([facility]) Panic attack as reaction to stress Primary [...] excess calories ([facility]) Body mass index (BMI) 45.0-49.9, adult [place] FLAVIO (obstructive sleep apnea) Obstructive sleep apnea [...] gangrene Body mass index (BMI) 45.0-49.9, adult ([facility] Morbid (severe) obesity due to excess calories ([facility] Primary hypertension- Primary Unspecified essential hypertension FLAVIO (obstructive sleep apnea) Obstructive sleep apnea (adult) (pediatric) Morbid (severe) obesity due to excess calories ([facility] Major depressive disorder, single episode, moderate with anxious distress (HCC) Major depressive disorder, single episode, moderate (HCC) Major depressive disorder, single episode, moderate Pain, dental Primary hypertension- Primary Unspecified essential hypertension FLAVIO (obstructive sleep apnea) Obstructive sleep apnea (adult) (pediatric) Morbid (severe) obesity due to excess calories ([facility]) Pre-diabetes Other abnormal glucose Panic attack as reaction to stress PTSD (post-traumatic stress disorder) Posttraumatic stress disorder Major depressive disorder, single episode, moderate with anxious distress ([facility]) Epistaxis Erythema ab igne Erythema due to burn (first degree), unspecified site Pelvic pain in female- Primary Unspecified symptom associated with female genital organs LGSIL of cervix of undetermined significance Pap smear to confirm normal after abnormal result Encounter for Papanicolaou cervical smear to confirm findings of recent normal smear following initial abnormal smear documented in this encounter [facility]* Diagnosis RUQ pain- Primary Abdominal pain, right upper quadrant Pre-diabetes Other abnormal glucose Elevated blood pressure reading Elevated blood pressure reading without diagnosis of hypertension Morbid obesity ([facility]) Morbid obesity Environmental and seasonal allergies Influenza B Influenza with other respiratory manifestations Primary hypertension- Primary Unspecified essential hypertension Morbid obesity ([facility] Morbid obesity FLAVIO (obstructive sleep apnea) Obstructive sleep apnea (adult) (pediatric) Primary hypertension- Primary Unspecified essential hypertension Morbid obesity ([facility] Morbid obesity FLAVIO (obstructive sleep apnea) Obstructive sleep apnea (adult) (pediatric) Primary hypertension- Primary Unspecified essential hypertension Panic attack as reaction to stress Primary hypertension- Primary Unspecified essential hypertension Morbid (severe) obesity due to excess calories ([facility]) Body mass index (BMI) 50.0-59.9, adult ([facility]) Panic attack as reaction to stress Primary [...] excess calories ([facility]) Major depressive disorder, single episode, moderate (HCC)- Primary Major depressive disorder, single episode, moderate Morbid (severe) obesity due to excess calories ([facility]) Body mass index (BMI) 45.0-49.9, adult ([facility]) FLAVIO (obstructive sleep apnea) Obstructive sleep apnea [...] 45.0-49.9, adult ([facility]) Morbid (severe) obesity due to excess calories ([facility]) Primary hypertension- Primary Unspecified essential hypertension FLAVIO [...] excess calories ([facility]) Pre-diabetes Other abnormal glucose Panic attack as reaction to stress PTSD (post-traumatic stress disorder) Posttraumatic stress disorder Major depressive disorder, single episode, moderate with anxious distress (HCC) Epistaxis Erythema ab igne Erythema due to burn (first degree), unspecified site PTSD (post-traumatic stress disorder) Posttraumatic stress disorder Major depressive disorder, single episode, moderate with anxious distress (HCC) Chronic health problem documented in this encounter [...] excess calories ([facility]) Body mass index (BMI) 50.0-59.9, adult ([facility]) Panic attack as reaction to stress Primary [...] 45.0-49.9, adult ([facility]) FLAVIO (obstructive sleep apnea) Obstructive sleep apnea [...] due to burn (first degree), unspecified site Atypical squamous cell changes of undetermined significance (ASCUS) on cervical cytology with positive high risk human papilloma virus (HPV) Combined abdominal and pelvic pain documented in this encounter [facility] Narrative - Reported* Type Description Date Surgical History wisdom teeth [employer] Other Progress note No data available for this section [facility] reason for referral (narrative)No reason for referral [facility] Work Phone: Summary Purpose Family History No Family History [...] Date/ Time Advance Directives No August 28 5:22pm Advance Directive Response Recorded Date/ Time Advance Directives No August 28 021 4:22pm Advance Directive Response Recorded Date/ Time Advance Directives No January 7:54am Chief Complaint and Reason for Visit Chief Complaint Admit Date Established Patient January 15, 2025 3:16pm Unknown January 27, 2025 12:59pm Reason for Visit Admit Date Major depressive disorder, s lida episode with anxious distress January 15, 2025 3:16pm Morbid obesity due to excess calories Se ptember 2024 3:16pm FLAVIO (obstructive sleep apnea) January 15, 2025 3:16pm Primary hypertension January 15 3:16pm Vaping nicotine dependence, non-tobacco product January 15, 2025 3:16pm Chief Complaint Admit Date Established Patient January 15, 2025 3:16pm Reason for Visit Admit Date Major depressive disorder, s lida episode with anxious distress January 15, 2025 3:16pm Morbid obesity due to excess calories Se ptember 2024 3:16pm FLAVIO (obstructive sleep apnea) January 15, 2025 3:16pm Primary hypertension January 15 3:16pm Vaping nicotine dependence, non-tobacco product January 15, 2025 3:16pm Additional Source Comments REASON FOR VISIT (unrecogniz [...] Ventral hernia without obstruction or gangrene Procedures ND OFFICE/OUTPATIENT NEW HIGH MDM 60 MINUTES Whit Ca, PALLAVI [address] [place] [address] Phone: tel: fax: Anam Kirkland DO [address] [place] [address] Phone: tel: fax: Referral ID Status Reason Start Date Expiration Date V isits Requested Visits Authorized [id number] Closed Specialty Services Required 03/05/2024 09/01/2024 1 1 Reason Comments Follow-up Depression PTSD (Post-Traumatic Stress Disorder) Reason Comments Follow-up Anxiety PTSD (Post-Traumatic Stress Disorder) Reason Comments Gynecologic Exam Reason Comments Psychiatric Evaluation Depression PTSD (Post-Traumatic Stress Disorder) Anxiety Specialty Diagnoses / Procedures Referred By Contac t Referred To Contact Behavioral Health Diagnoses Panic attack as reaction to stress (CMS/HCC) Procedures ND OFFICE/OUTPATIENT [facility] MDM 60 MINUTES Whit Ca, PALLAVI [address] [place] [address] Shauna Pat, [facility] [address] [place] [address] Referral ID Status Reason Start Date Expiration Date V isits Requested Visits Authorized [id number] Closed Specialty Services Required 11/14/2023 05/12/2024 1 1 Reason Comments Follow-up PTSD (Post-Traumatic Stress Disorder) Anxiety Reason Comments Follow-up PTSD (Post-Traumatic Stress Disorder) Anxiety Depression Reason Comments Follow-up Anxiety Depression PTSD (Post-Traumatic Stress Disorder) Reason Comments Abnormal Pap Smear Specialty Diagnoses / Procedures [facility] Referred To Contact Obstetrics and Gynecology Diagnoses 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 Procedures ND OFFICE/OUTPATIENT [facility] Whit Ca NP [address] [place] [address] Phone: tel: fax: Chuy Mcclain, [address] [place] [address] Phone: tel: fax: Referral ID Status Reason Start Date Expiration Date V isits Requested Visits Authorized [id number] Closed Specialty Services Required 04/24/2024 10/21/2024 1 1 Reason Comments Follow-up PTSD (Post-Traumatic Stress Disorder) Reason Comments Colposcopy Reason Comments Med Refill Reason Comments Sleep Apnea Reason Comments Hypertension Reason Comments Abnormal Pap Smear Pt present today for a repeat pap smear. Pt has an abnormal pap LGSIL on 04/25/2024. 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 Reason Comments Colposcopy Source Comments (unrecognize d section and content) In the event this informatio n is protected by the Federal Confidentiality of Alcohol and Drug Abuse Patient Records regulations: The Federal rules restrict any use of the information to criminally investigate or prosecute any alcohol or drug abuse patient.[facility] Hospital[facility] the event this information is protected by the Federal Confidentiality of Alcohol and Drug Abuse Patient Records regulations: The Federal rules restrict any use of the information to criminally investigate or prosecute any alcohol or drug abuse patient.[facility] HospitalIn the event this information is protected by the Federal Confidentiality of Alcohol and Drug Abuse Patient Records regulations: The Federal rules restrict any use of the information to criminally investigate or prosecute any alcohol or drug abuse patient.[facility] HospitalIn the event this information is protected by the Federal Confidentiality of Alcohol and Drug Abuse Patient Records regulations: The Federal rules restrict any use of the information to criminally investigate or prosecute any alcohol or drug abuse patient.[facility] Care Teams (unrecognized sec tion and content) Tube Heater Relationship Specialty Start Date End Date ChristinaTiki powell [address] [facility] [place], [place] [id number] Referring Obstetrics 11/16/21 Tube Heater Relationship Specialty Start Date End Date DirkTiki garrido [address] [facility] [place], [place] [id number] Referring Obstetrics 11/16/21 Tube Heater Relationship Specialty Start Date End Date ChristinaTiki powell [address] [facility] [place], [place] [id number] Referring Obstetrics 11/16/21 Tube Heater Relationship Specialty Start Date End Date Tiki Chan [address] [facility] [place], [place] [id number] Referring Obstetrics 11/16/21 Team Status: Active Member Role Status Dates PHYSICIAN NO FAMILY Primary Care Provider Active Team Status: Inactive Member Role Status Dates PHYSICIAN NO FAMILY Primary Care Provider Active Start: August 29, 2023 End: August 29, 2023 NON STAFF Attending Provider Active Start: 2023 End: August 29, 2023 Tube Heater Relationship Specialty Start Date End Date Mushtaq Lu MD [address] [place] [address] PCP - General Family Medicine 08/01/23 Whit Ca NP [address] [place] [address] Nurse Practitioner Family Medicine 08/01/23 Tube Heater Relationship Specialty Start Date End Date Mushtaq Lu MD [address] [place] [address] PCP - General Family Medicine 08/01/23 Whit Ca NP [address] [place] [address] Nurse Practitioner Family Medicine 08/01/23 Tube Heater Relationship Specialty Start Date End Date Mushtaq Lu MD [address] [place] [address] PCP - General Family Medicine 08/01/23 Whit Ca NP [address] [place] [address] Nurse Practitioner Family Medicine 08/01/23 Tube Heater Relationship Specialty Start Date End Date Mushtaq Lu MD [address] [place] [address] PCP - General Family Medicine 08/01/23 Whit Ca NP [address] [place] [address] Nurse Practitioner Family Medicine 08/01/23 Tube Heater Relationship Specialty Start Date End Date Mushtaq Lu MD [address] [place] [address] PCP - General Family Medicine 08/01/23 Whit Ca NP [address] [place] [address] Nurse Practitioner Family Medicine 08/01/23 Tube Heater Relationship Specialty Start Date End Date Mushtaq Lu MD [address] [place] [address] PCP - General Family Medicine 08/01/23 Whit Ca NP [address] [place] [address] Nurse Practitioner Family Medicine 08/01/23 Tube Heater Relationship Specialty Start Date End Date Mushtaq Lu MD [address] [place] [address] PCP - General Family Medicine 08/01/23 Whit Ca NP [address] [place] [address] Nurse Practitioner Family Medicine 08/01/23 Tube Heater Relationship Specialty Start Date End Date Mushtaq Lu MD [address] [place] [address] PCP - General Family Medicine 08/01/23 Whit Ca NP [address] [place] [address] Nurse Practitioner Family Medicine 08/01/23 Tube Heater Relationship Specialty Start Date End Date Mushtaq Lu MD [address] [place] [address] PCP - General Family Medicine 08/01/23 Whit Ca NP [address] [place] [address] Nurse Practitioner Family Medicine 08/01/23 Tube Heater Relationship Specialty Start Date End Date Mushtaq uL MD [address] [place] [address] PCP - General Family Medicine 08/01/23 Whit Ca NP [address] [place] [address] Nurse Practitioner Family Medicine 08/01/23 Tube Heater Relationship Specialty Start Date End Date Mushtaq Lu MD [address] [place] [address] PCP - General Family Medicine 08/01/23 Whit Ca NP [address] [place] [address] Nurse Practitioner Family Medicine 08/01/23 Tube Heater Relationship Specialty Start Date End Date Mushtaq Lu MD [address] [place] [address] PCP - General Family Medicine 08/01/23 Whit Ca NP [address] [place] [address] Nurse Practitioner Family Medicine 08/01/23 Tube Heater Relationship Specialty Start Date End Date Mushtaq Lu MD [address] [place] [address] PCP - General Family Medicine 08/01/23 Whit Ca NP [address] [place] [address] Nurse Practitioner Family Medicine 08/01/23 Tube Heater Relationship Specialty Start Date End Date Mushtaq Lu MD [address] [place] [address] PCP - General Family Medicine 08/01/23 Whit Ca NP [address] [place] [address] PCP - [employer] 03/08/24 Whit Ca NP [address] [place] [address] Nurse Practitioner Family Medicine 08/01/23 Tube Heater Relationship Specialty Start Date End Date Mushtaq Lu MD [address] [place] [address] PCP - General Family Medicine 08/01/23 Whit Ca NP [address] [place] [address] PCP - [employer] 03/08/24 Whit Ca NP [address] [place] [address] Nurse Practitioner Family Medicine 08/01/23 Tube Heater Relationship Specialty Start Date End Date Mushtaq Lu MD [address] [place] [address] PCP - General Family Medicine 08/01/23 Whit Ca NP [address] [place] [address] [facility] Whit Ca NP [address] [place] [address] Nurse Practitioner Family Medicine 08/01/23 Tube Heater Relationship Specialty Start Date End Date Mushtaq Lu MD [address] [place] [address] PCP - General Family Medicine 08/01/23 Whit Ca NP [address] [place] [address] Nurse Practitioner Family Medicine 08/01/23 Tube Heater Relationship Specialty Start Date End Date Mushtaq Lu MD [address] [place] [address] PCP - General Family Medicine 08/01/23 Whit Ca NP [address] [place] [address] Nurse Practitioner Family Medicine 08/01/23 Tube Heater Relationship Specialty Start Date End Date Mushtqa Lu MD [address] [place] [address] PCP - General Family Medicine 08/01/23 Whit Ca NP [address] [place] [address] Nurse Practitioner Family Medicine 08/01/23 Tube Heater Relationship Specialty Start Date End Date Mushtaq Lu MD [address] [place] [address] PCP - General Family Medicine 08/01/23 Whit Ca NP [address] [place] [address] PCP - [employer] 03/08/24 Whit Ca NP [address] [place] [address] Nurse Practitioner Family Medicine 08/01/23 Tube Heater Relationship Specialty Start Date End Date Mushtaq Lu MD [address] [place] [address] PCP - General Family Medicine 08/01/23 Whit Ca NP [address] [place] [address] PCP - [employer] 03/08/24 Whit Ca NP [address] [place] [address] Nurse Practitioner Family Medicine 08/01/23 Tube Heater Relationship Specialty Start Date End Date Mushtaq Lu MD [address] [place] [address] PCP - General Family Medicine 08/01/23 hWit Ca NP [address] [place] [address] PCP - [employer] 03/08/24 Whit Ca NP [address] [place] [address] Nurse Practitioner Family Medicine 08/01/23 Tube Heater Relationship Specialty Start Date End Date Mushtaq Lu MD [address] [place] [address] PCP - General Family Medicine 08/01/23 Whit Ca NP [address] [place] [address] PCP - [employer] 03/08/24 Whit Ca NP [address] [place] [address] Nurse Practitioner Family Medicine 08/01/23 Tube Heater Relationship Specialty Start Date End Date Mushtaq Lu MD [address] [place] [address] PCP - General Family Medicine 08/01/23 Whit Ca NP [address] [place] [address] PCP - [employer] 03/08/24 Whit Ca NP [address] [place] [address] Nurse Practitioner Family Medicine 08/01/23 Patric Archer LPC Therapist Behavioral Health 05/20/24 Tube Heater Relationship Specialty Start Date End Date Mushtaq Lu MD [address] [place] [address] PCP - General Family Medicine 08/01/23 Whit Ca NP [address] [place] [address] PCP - [employer] 03/08/24 Whit Ca NP [address] [place] [address] Nurse Practitioner Family Medicine 08/01/23 Patric Archer LPC Therapist Behavioral Health 05/20/24 Tube Heater Relationship Specialty Start Date End Date Mushtaq Lu MD [address] [place] [address] PCP - General Family Medicine 08/01/23 Whit Ca NP [address] [place] [address] PCP - [employer] 03/08/24 Whit Ca NP [address] [place] [address] Nurse Practitioner Family Medicine 08/01/23 Patric Archer LPC Therapist Behavioral Health 05/20/24 Tube Heater Relationship Specialty Start Date End Date Mushtaq Lu MD [address] [place] [address] PCP - General Family Medicine 08/01/23 Whit Ca NP [address] [place] [address] PCP - [employer] 03/08/24 Whit Ca NP [address] [place] [address] Nurse Practitioner Family Medicine 08/01/23 Patric Archer LPC Therapist Behavioral Health 05/20/24 Tube Heater Relationship Specialty Start Date End Date Mushtaq Lu MD [address] [place] [address] PCP - General Family Medicine 08/01/23 Whit Ca NP [address] [place] [address] PCP - [employer] 03/08/24 Whit Ca NP [address] [place] [address] Nurse Practitioner Family Medicine 08/01/23 Patric Archer LPC Therapist Behavioral Health 05/20/24 Tube Heater Relationship Specialty Start Date End Date Mushtaq Lu MD [address] [place] [address] PCP - General Family Medicine 08/01/23 Whit Ca NP [address] [place] [address] PCP - [employer] 03/08/24 Whit Ca NP [address] [place] [address] Nurse Practitioner Family Medicine 08/01/23 Patric Archer [facility] Therapist Behavioral Health 05/20/24 Tube Heater Relationship Specialty Start Date End Date Mushtaq Lu MD [address] [place] [address] PCP - General Family Medicine 08/01/23 Whit Ca NP [address] [place] [address] PCP - [employer] 03/08/24 Whit Ca NP [address] [place] [address] Nurse Practitioner Family Medicine 08/01/23 Patric Archer [facility] Therapist Behavioral Health 05/20/24 Team Status: Inactive Member Role Status Dates Chuy Mcclain DO Attending Provider Active Start : June 17, 2024 End: June 17, 2024 Tube Heater Relationship Specialty Start Date End Date Mushtaq Lu MD [address] [place] [address] PCP - General Family Medicine 08/01/23 Whit Ca NP [address] [place] [address] PCP - [employer] 03/08/24 Whit Ca NP [address] [place] [address] Nurse Practitioner Family Medicine 08/01/23 Patric Archer LPC Therapist Behavioral Health 05/20/24 Tube Heater Relationship Specialty Start Date End Date Mushtaq Lu MD [address] [place] [address] PCP - General Family Medicine 08/01/23 Whit Ca NP [address] [place] [address] PCP - [employer] 03/08/24 Whit Ca NP [address] [place] [address] Nurse Practitioner Family Medicine 08/01/23 Patric Archer [facility] Therapist Behavioral Health 05/20/24 Tube Heater Relationship Specialty Start Date End Date Mushtaq Lu MD [address] [place] [address] PCP - General Family Medicine 08/01/23 Whit Ca NP [address] [place] [address] PCP - [employer] 03/08/24 Whit Ca NP [address] [place] [address] Nurse Practitioner Family Medicine 08/01/23 Patric Archer LPC Therapist Behavioral Health 05/20/24 Tube Heater Relationship Specialty Start Date End Date Mushtaq Lu MD [address] [place] [address] PCP - General Family Medicine 08/01/23 Whit Ca NP [address] [place] [address] PCP - [employer] 03/08/24 Whit Ca NP [address] [place] [address] Nurse Practitioner Family Medicine 08/01/23 Patric Archer LPC Therapist Behavioral Health 05/20/24 Tube Heater Relationship Specialty Start Date End Date Mushtaq Lu MD [address] [place] [address] PCP - General Family Medicine 08/01/23 Whit Ca NP [address] [place] [address] PCP - [employer] 03/08/24 Whit Ca NP [address] [place] [address] Nurse Practitioner Family Medicine 08/01/23 Patric Archer LPC Therapist Behavioral Health 05/20/24 Tube Heater Relationship Specialty Start Date End Date Mushtaq Lu MD [address] [place] [address] PCP - General Family Medicine 08/01/23 Whit Ca NP [address] [place] [address] PCP - [employer] 03/08/24 Whit Ca NP [address] [place] [address] Nurse Practitioner Family Medicine 08/01/23 Patric Archer LPC Therapist Behavioral Health 05/20/24 Tube Heater Relationship Specialty Start Date End Date Mushtaq Lu MD [address] [place] [address] PCP - General Family Medicine 08/01/23 Whit Ca NP [address] [place] [address] PCP - [employer] 03/08/24 Whit Ca NP [address] [place] [address] Nurse Practitioner Family Medicine 08/01/23 Patric Archer LPC Therapist Behavioral Health 05/20/24 Tube Heater Relationship Specialty Start Date End Date Mushtaq Lu MD [address] [place] [address] PCP - General Family Medicine 08/01/23 Whit Ca NP [address] [place] [address] PCP - [employer] 03/08/24 Whit Ca NP [address] [place] [address] Nurse Practitioner Family Medicine 08/01/23 Patric Archer LPC Therapist Behavioral Health 05/20/24 Bette Logan, [facility] Reinsurance Claim Analyst Family Medicine 08/21/24 Tube Heater Relationship Specialty Start Date End Date Mushtaq Lu MD [address] [place] [address] PCP - General Family Medicine 08/01/23 Whit Ca NP [address] [place] [address] PCP - [employer] 03/08/24 Whit Ca NP [address] [place] [address] Nurse Practitioner Family Medicine 08/01/23 Patric Archer LPC Therapist Behavioral Health 05/20/24 Bette Logan, [facility] Reinsurance Claim Analyst Family Medicine 08/21/24 Tube Heater Relationship Specialty Start Date End Date Mushtaq Lu MD [address] [place] [address] PCP - General Family Medicine 08/01/23 Whit Ca NP [address] [place] [address] Nurse Practitioner Family Medicine 08/01/23 Patric Archer LPC Therapist Behavioral Health 05/20/24 Tube Heater Relationship Specialty Start Date End Date Mushtaq Lu MD [address] [place] [address] PCP - General Family Medicine 08/01/23 Whit Ca NP [address] [place] [address] Nurse Practitioner Family Medicine 08/01/23 Patric Archer LPC Therapist Behavioral Health 05/20/24 Tube Heater Relationship Specialty Start Date End Date Mushtaq Lu MD [address] [place] [address] PCP - General Family Medicine 08/01/23 Whit Ca NP [address] [place] [address] Nurse Practitioner Family Medicine 08/01/23 Patric Archer LPC Therapist Behavioral Health 05/20/24 Tube Heater Relationship Specialty Start Date End Date Mushtaq Lu MD [address] [place] [address] PCP - General Family Medicine 08/01/23 Whit Ca NP [address] [place] [address] Nurse Practitioner Family Medicine 08/01/23 Patric Archer LPC Therapist Behavioral Health 05/20/24 Tube Heater Relationship Specialty Start Date End Date Mushtaq Lu MD [address] [place] [address] PCP - General Family Medicine 08/01/23 Whit Ca NP [address] [place] [address] Nurse Practitioner Family Medicine 08/01/23 Patric Archer LPC Therapist Behavioral Health 05/20/24 Tube Heater Relationship Specialty Start Date End Date Mushtaq Lu MD [address] [place] [address] PCP - General Family Medicine 08/01/23 Whit Ca NP [address] [place] [address] Nurse Practitioner Family Medicine 08/01/23 Patric Archer LPC Therapist Behavioral Health 05/20/24 Tube Heater Relationship Specialty Start Date End Date Mushtaq Lu MD [address] [place] [address] PCP - General Family Medicine 08/01/23 Whit Ca NP [address] [place] [address] Nurse Practitioner Family Medicine 08/01/23 Patric Archer LPC Therapist Behavioral Health 05/20/24 Tube Heater Relationship Specialty Start Date End Date Mushtaq Lu MD [address] [place] [address] PCP - General Family Medicine 08/01/23 Whit Ca NP [address] [place] [address] Nurse Practitioner Family Medicine 08/01/23 Patric Archer LPC Therapist Behavioral Health 05/20/24 Tube Heater Relationship Specialty Start Date End Date Mushtaq Lu MD [address] [place] [address] PCP - General Family Medicine 08/01/23 Whit Ca NP [address] [place] [address] Nurse Practitioner Family Medicine 08/01/23 Patric Archer LPC Therapist Behavioral Health 05/20/24 Tube Heater Relationship Specialty Start Date End Date Mushtaq Lu MD [address] [place] [address] PCP - General Family Medicine 08/01/23 Whit Ca NP [address] [place] [address] Nurse Practitioner Family Medicine 08/01/23 Patric Archer LPC Therapist Behavioral Health 05/20/24 Tube Heater Relationship Specialty Start Date End Date Mushtaq Lu MD [address] [place] [address] PCP - General Family Medicine 08/01/23 Whit Ca NP [address] [place] [address] Nurse Practitioner Family Medicine 08/01/23 Patric Archer LPC Therapist Behavioral Health 05/20/24 Tube Heater Relationship Specialty Start Date End Date Mushtaq Lu MD [address] [place] [address] PCP - General Family Medicine 08/01/23 Whit Ca NP [address] [place] [address] Nurse Practitioner Family Medicine 08/01/23 Patric Archer LPC Therapist Behavioral Health 05/20/24 Tube Heater Relationship Specialty Start Date End Date Mushtaq Lu MD [address] [place] [address] PCP - General Family Medicine 08/01/23 Whit Ca NP [address] [place] [address] Nurse Practitioner Family Medicine 08/01/23 Patric Archer LPC Therapist Behavioral Health 05/20/24 Tube Heater Relationship Specialty Start Date End Date Mushtaq Lu MD [address] [place] [address] PCP - General Family Medicine 08/01/23 Whit Ca NP [facility] [place] [address] Nurse Practitioner Family Medicine 08/01/23 Patric Archer LPC Therapist Behavioral Health 05/20/24 Tube Heater Relationship Specialty Start Date End Date Mushtaq Lu MD PCP - General Family Medicine 08/01/23 Whit Ca NP Nurse Practitioner Family Medicine 08/01/23 Patric Archer LPC Therapist Behavioral Health 05/20/24 Tube Heater Relationship Specialty Start Date End Date Mushtaq Lu MD PCP - General Family Medicine 08/01/23 Whit Ca NP Nurse Practitioner Family Medicine 08/01/23 Patric Archer LPC Therapist Behavioral Health 05/20/24 Tube Heater Relationship Specialty Start Date End Date Mushtaq Lu MD PCP - General Family Medicine 08/01/23 Whit Ca NP Nurse Practitioner Family Medicine 08/01/23 Patric Archer LPC Therapist Behavioral Health 05/20/24 Team Status: Active Member Role Status Dates BOO AndradeC Primary Care Provider Active Team Status: Active Member Role Status Dates Chuy Mcclain DO Attending Provider Active Start : January 01, 2025 EDITH Andrade Primary Care Provider Active Start: January 01, 2025 Team Status: Inactive Member Role Status Dates EDITH Andrade Primary Care Provider Active Start: January 15, 2025 End: January 15, 2025 EDITH Andrade Attending Provider Active Start: January 15, 2025 End: January 15, 2025 [employer] Relationship Specialty Start Date End Date Mushtaq Lu MD PCP - General Family Medicine 08/01/23 Whit Ca NP Nurse Practitioner Family Medicine 08/01/23 Patric Archer LPC Therapist Behavioral Health 05/20/24 Team Status: Inactive Member Role Status Dates Chuy Mcclain DO Attending Provider Active Start : January 27, 2025 End: January 27, 2025 INFORMATION SOURCE (unrecogn ized section and content) DATE CREATED AUTHOR 02/06/2022 [facility] DATE CREATED AUTHOR AUTHOR'S ORGANIZ ATION 09/21/2022 [facility] DATE CREATED AUTHOR AUTHOR'S ORGANIZ ATION 05/02/2024 [facility] DATE CREATED AUTHOR AUTHOR'S ORGANIZ ATION 05/03/2024 [facility] DATE CREATED AUTHOR AUTHOR'S ORGANIZ ATION 07/06/2024 [facility] DATE CREATED AUTHOR AUTHOR'S ORGANIZ ATION 01/28/2025 [facility] DATE CREATED AUTHOR AUTHOR'S ORGANIZ ATION 01/29/2025 [facility] Goals (unrecognized section and content) Goals may [...] BE BASED ON THE PRIMARY CLINICAL RECORDS. [facility] [email or web address] [facility]. provides no warranty or guarantee of the accuracy or completeness of information in this document.
== END 2025-01-27 01:01 | disposition home or self-care (01) ==
LOC: LAB 01:00
PROVIDERS: PCP Nurse Practitioner; Visit Provider Obstetrics & Gynecology
DX: R87.610 Atypical squamous cells of undetermined significance on cytologic smear of cervix (ASC-US) (principal)

== ENCOUNTER 2025-02-05 07:09 | Outpatient (OUT) | payer BC, SELFPAY ==
--- OUTSIDE RECORDS SUMMARY | 2025-02-04 15:57 | XMS_ITS ---
Author Name Auto Generated Organization OHIP Support Name Relationship Address Phone JUAREZ, KARIE Next of Kin Unknown [phone] RAMBO, SINDY Next of Kin Unknown [phone] JUAREZ, KARIE Next of Kin Unknown [phone] RAMBO, SINDY Next of Kin Unknown [phone] [employer] redra Next of Kin Unknown [phone] JUAREZ, KARIE Next of Kin Unknown [phone] MENEDYTA, SINDY Next of Kin Unknown [phone] JUAREZ, KARIE Next of Kin Unknown [phone] MENEDYTA, SINDY Next of Kin Unknown [phone] JUAREZ, KARIE Next of Kin Unknown [phone] MENFEDERICOOFF, SINDY Next of Kin Unknown +[phone] JUAREZ, KARIE Next of Kin Unknown [phone] MENFEDERICOOFF, SINDY Next of Kin Unknown +[phone] JUAREZ, KARIE Next of Kin Unknown [phone] MENFEDERICOOFF, SINDY Next of Kin Unknown +[phone] JUAREZ, KARIE Next of Kin Unknown +[phone] MENFEDERICOOFF, SINDY Next of Kin Unknown +[phone] JUAREZ, KARIE Next of Kin Unknown +[phone] MENFEDERICOOFF, SINDY Next of Kin Unknown +[phone] JUAREZ, KARIE Next of Kin Unknown [phone] MENFEDERICOOFF, SINDY Next of Kin Unknown [phone] JUAREZ, KARIE Next of Kin Unknown [phone] MENKHOFF, SINDY Next of Kin Unknown [phone] JUAREZ, KARIE Next of Kin Unknown [phone] MENKHOFF, SINDY Next of Kin Unknown [phone] JUAREZ, KARIE Next of Kin Unknown [phone] MENKHOFF, SINDY Next of Kin Unknown [phone] JUAREZ, KARIE Next of Kin Unknown [phone] MENKHOFF, SINDY Next of Kin Unknown [phone] JUAREZ, KARIE Next of Kin Unknown [phone] MENKHOFF, SINDY Next of Kin Unknown [phone] JUAREZ, KARIE Next of Kin Unknown [phone] MENKHOFF, SINDY Next of Kin Unknown [phone] JUAREZ, KARIE Next of Kin Unknown +[phone] MENKHOFF, SINDY Next of Kin Unknown +[phone] JUAREZ, KARIE Next of Kin Unknown +[phone] MENKHOFF, SINDY Next of Kin Unknown +[phone] [place] [address] +[phone] JUAREZ, KARIE Next of Kin Unknown +[phone] MENKHOFF, SINDY Next of Kin Unknown [phone] Menkoff, Sindy Next of Kin Unknown +[phone] JUAREZ, KARIE Next of Kin Unknown +[phone] MENKHOFF, SINDY Next of Kin Unknown +[phone] JUAREZ, KARIE Next of Kin Unknown +[phone] MENKHOFF, SINDY Next of Kin Unknown +[phone] JUAREZ, KARIE Next of Kin Unknown +[phone] MENKHOFF, SINDY Next of Kin Unknown +[phone] [place] [address] +[phone] [place] [address] +[phone] [place] [address] +[phone] JUAREZ, KARIE Next of Kin Unknown [phone] MENKHOFF, SINDY Next of Kin Unknown +[phone] JUAREZ, KARIE Next of Kin Unknown +[phone] MENKHOFF, SINDY Next of Kin Unknown +[phone] [place] [address] +[phone] JUAREZ, KARIE Next of Kin Unknown +[phone] MENKHOFF, SINDY Next of Kin Unknown +[phone] JUAREZ, KARIE Next of Kin Unknown +[phone] MENKHOFF, SINDY Next of Kin Unknown +[phone] JUAREZ, KARIE Next of Kin Unknown +[phone] MENKHOFF, SINDY Next of Kin Unknown +[phone] [place] [address] +[phone] JUAREZ, KARIE Next of Kin Unknown +[phone] MENKHOFF, SINDY Next of Kin Unknown +[phone] [place] [address] +[phone] JUAREZ, KARIE Next of Kin Unknown +[phone] MENKHOFF, SINDY Next of Kin Unknown +[phone] JUAREZ, KARIE Next of Kin Unknown +[phone] MENKHOFF, SINDY Next of Kin Unknown +[phone] JUAREZ, KARIE Next of Kin Unknown +[phone] MENKHOFF, SINDY Next of Kin Unknown +[phone] JUAREZ, KARIE Next of Kin Unknown +[phone] MENKHOFF, SINDY Next of Kin Unknown +[phone] JUAREZ, KARIE Next of Kin Unknown +[phone] MENKHOFF, ISNDY Next of Kin Unknown +[phone] MENKHOFF, SINDY Next of Kin Unknown +[phone] Care Team Providers Care Clinical Nursing Assistant Name Role Phone MINNA CARRENO Attending Unavailable ANAM KIRKLAND Referring Unavailable NO PCP, NO PCP Primary Care Unavailable NO PCP, NO PCP Primary Care Unavailable NO PCP, NO PCP Primary Care Unavailable MINNA CARRENO Admitting Unavailable MINNA CARRENO Attending Unavailable NO PCP, NO PCP Primary Care Unavailable URSULA MONSON Primary Care Unavailable AICHHOLEddie, URSULA J Primary Care Unavailable DORIE DONNELLY Attending Unavailable AICHHOLEddie, URSULA Rowe Referring Unavailable MINNA CARRENO Primary Care Unavailable FRANCESCA MCCLAIN Attending Unavailable AICHHOLZ, URSULA Referring Unavailable AICHHOLZ, URSULA Attending Unavailable SAMSON-SKY, RHANDA Attending Unavailab le JOHNYFRANCESCA Attending Unavailable SAMSON-SKY, RHANDA Attending Unavailab le SAMSON-SKY, RHANDA Attending Unavailab le AICHHOLZ, URSULA Attending Unavailable KVNG BAIRES Attending Unavailable SAMSON-SKY, RHANDA Attending Unavailab le SAMSON-SKY, RHANDA Attending Unavailab le SAMSON-SKY, RHANDA Attending Unavailab le SAMSON-SKY, RHANDA Attending Unavailab le SAMSON-SKY, RHANDA Attending Unavailab le AICHHOLZ, URSULA Attending Unavailable SAMSON-SKY, RHANDA Attending Unavailab MARK Lowry Attending Unavailable SAMSON-SKY, RHANDA Attending Unavailab le AICHHOLZ, URSULA Attending Unavailable ANAM KIRKLAND Attending Unavailable AICHHOLEddie, URSULA Referring Unavailable SAMSON-SKY, RHANDA Attending Unavailab le SAMSON-SKY, RHANDA Attending Unavailab le SAMSON-SKY, RHANDA Attending Unavailab JAYDEN Cabrera Attending Unavailable SAMSON-SKY, RHANDA Attending Unavailab le SAMSON-SKY, RHANDA Attending Unavailab le JOHNYFRANCESCA Attending Unavailable SAMSON-SKY, RHANDA Attending Unavailab le GRAHAM TOPETE Referring Unavailable JOHNYFRANCESCA Attending Unavailable SAMSON-SKY, RHANDA Attending Unavailab le AICHHOLZ, URSULA Attending Unavailable SAMSON-SKY, RHANDA Attending Unavailab le AICHHOLZ, URSULA Attending Unavailable SAMSON-SKY, RHANDA Attending Unavailab Audi Nichols Attending Unavailable Johny, Francesca Attending Unavailable Johny, Francesca Admitting Unavailable Johny, Francesca Attending Unavailable Johny, Francesca Admitting Unavailable PROBLEMS DATE TYPE CONDITION / CODE 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) MINNA CARRENO [facility] 05/31/2024 Unknown INCISIONAL HERNI A / UNK(Unknown) MINNA CARRENO [facility] 04/11/2024 Unknown Pain, unspecifie d / R52(ICD-10) NA [facility] 04/09/2024 Unknown New Patient / FREETEXT(AOF) MINNA CARRENO [facility] PROCEDURES No Procedure Records Found RESULTS PATHOLOGY REQUEST FOR LAB BERT Collected: 01/27/2025 2:29 PM Status: F Source: [facility] TYPE CODE TESTS RESULT OUT OF RANGE REFERENCE UNITS LAB [facility] Pathology Request for Lab Bert Result Comment: See report. Scanned copy available in EMR. PERFORMED BY: [place] [address] PATHOLOGIST ASSISTANT STORE MANAGER ADAM ABRAHAM M.D. Performed By: #### [facility] #### [address] US PELVIC COMPLETE W/ TV Observed: 01/20 2:24 PM Status: F Source: [facility] EPIC Order Comment: US PELVIS-TRA NSVAG IF INDICATED Patient's last menstrual period was 12/26/2024 (exact date). FINDINGS: Uterus 7.8 x 4.5 x 5.7cm [...] ultrasound appearance. TRANSCRIBED BY: ELECTRONICALLY SIGNED BY: MD Jemal Cottrell Observed: 06/17/2024 12:00 AM Status: F Source: [facility] ----- ------- Specimen: [id number] Received: 06/18/24 Status: FATUMA Zuñiga Num: [id number] Spec Type: Surgical Subm Dr: Francesca Mcclain Tissues: A Endocervix - Curettings (ECC) Procedures: HE/2Adiel/Placido Crespo ----- ------- Age/ Patient Sex Location Account Attending Physician ----- ------- Ramin Hernandez 34/F LABE[facility] [id number] Francesca Mcclain ----- ------- SPEC NUM: [id number] RECD: 06/18/24 STATUS: FATUMA ZUÑIGA NUM: [id number] RADHA: 06/17/24-[address] [facility] [address]: Francesca Mcclain ENTERED: 06/18/[address] [facility] [address]: SPEC TYPE: Surgical DEPT: S ENTERED BY: [id number] RECV BY: [id number] ORDERED: HE/2, Gross/Micro L4 ORDERED: HE/2, Gross/Micro [...] submitted in a single cassette. (1, ns, [id number] A) CPT Codes 74498 ----- ------- ----- ------- Specimen: [id number] Received: 06/18/24 Status: FATUMA Zuñiga Num: [id number] Spec Type: Surgical Subm Dr: Francesca Mcclain Tissues: A Endocervix - Curettings (ECC) Procedures: HE/2, Gross/Micro L4 ----- ------- Patient: Ramin Hernandez [id number] (Continued) ----- ------- Signed (signature on file) Zain Blackburn MD 06/19/24 1450 URINE NURSING Collected: 05/31/2024 7 :24 AM Status: COMPLETED Source: [facility] TYPE CODE TESTS RESULT OUT OF RANGE REFERENCE UNITS LAB NUCG(LOINC) URINE NURSING Negative (qualifier value) NEG Performed By: #### 2106-3 ## ## [facility] ([id number]) [address] [place] [address] AMBULATORY VISIT SUMMARY Observed: 04/30 7:53 AM Status: F Source: [facility] Ambulatory Visit Summary RAMIN RICKS :1990 Visit Date:04/29/2024 Ambulatory Visit Instructions Your Diagnosis Kidney stone Asymptomatic microscopic hematuria Family history of kidney disease Your Care Team Attending Physician - ALESSANDRO EGAN, Audi Felton Primary Care Physician - URSULA MONSON CNP This Is Your Medications List Contact [...] Appointments Follow Up with ALESSANDRO EGAN, Audi R, URL When: Only if needed Where: [facility] [address] , [place] [address] [phone] Medications What How Much When Instructions Unchanged [...] these instructions at home: Medicines ??? Take uyty-zdb-rfywnkf and prescription medicines only as told by [...] hours after a stone comes out. ? 8???12 weeks after a stone comes out, and every 6???12 months after that. ??? Strain your pee [...] provider. Document Revised: 12/16/2022 Document Reviewed: 12/16/2022 [employer] Patient Education ??? 2023 [employer] UROLOGY OFFICE/CLINIC NOTE Observed: 4:43 PM Status: F Source: [facility] Urology Office/Clinic Note Chief Complaint 1yr w/ [...] [facility] [address], [place] [address] [phone] Additional Instructions: Patient Education Kidney Stones, Lwun-ez-Pqsd I, Jane Garcia, personally scribed for Dr. Angela on 04/29/2024 16:43:27. . Documentation recorded by the scribe, Jane Garcia, accurately reflects the services(s) I performed and decisions made by me. Authenticated by Dr. Angela on 04/29/2024 16:46:55. Problem List/Past Medical History [...] 15:40:00) Nitrite Urine Dipstick: Negative (04/29/24 15:40:00) Protein Urine Dipstick: 2+ (100 mg/dl) (04/29/24 15:40:00) Specific [place] Urine Dipstick: 1.025 (04/29/24 15:40:00) Urine Appearance Urine Dipstick: Clear (04/29/24 15:40:00) Urine Color Urine Dipstick: Dark yellow (04/29/24 15:40:00) Urobilinogen Urine Dipstick: Normal 0.2-1 EU/dl (04/29/24 15:40:00) pH Urine Dipstick: 5.5 (04/29/24 15:40:00) [1] URO- 1 year; Audi ANGELA MD 04/21/2023 10:37 EST Result Comment: Electronical ly Signed By: Audi ANGELA MD\.br\Date and Time Signed: 04/29/24 16:47 EST\.br\Electronically Co-Signed By: Jane Garcia\.br\Date and Time Co-Signed: 04/29/24 16:44 EST PATIENT EDUCATION Observed: 04/29/2024 4:28 PM Status: F Source: [facility] Patient Education Urology Kidney Stones Kidney stones [...] these instructions at home: Medicines ??? Take qyrf-rhg-lzfwbjt and prescription medicines only as told by [...] provider. Document Revised: 12/16/2022 Document Reviewed: 12/16/2022 [employer] Patient Education ? 2023 [employer]. ALLERGIES DATE TYPE / CODE NAME / CODE REACTION SEVERITY SOURCE 07/12/2023 DRUG INGREDI~NON-CB ORD/839926860( SNOMED CT) PENICILLIN G Rash Low [facility] 12/30/2021 DRUG INGREDI~Food/4 23266319(SNOME D CT) STRAWBERRY Hives [facility] 09/11/2020 Drug Allergy/744029 002(SNOMED CT) No Known Allergies/T506456109(R XNORM) Unknown [facility] /073502287(S NOMED CT) penicillin [id number] [facility] /497019096(S NOMED CT) No Known Allergies [facility] /600958134(S NOMED CT) Strawberries [id number] [facility] Drug Class/62603994 3(SNOMED CT) NO KNOWN ALLERGIES [facility] ENCOUNTERS ADMIT/DISCHARGE ACCOUNT NUMBER ADMITTING ENCOUNTER CLASS LOCATION SOURCE 02/04/2025/02/05/20 [id number] Ambulatory Building:[facility] EPIC 01/27/2025/01/28/20 25 [id number] Ambulatory Building:[facility] EPIC 01/27/2025/01/28/20 25 [id number] [facility] 01/20/2025/01/21/20 [id number] Ambulatory Building:[facility] EPIC 01/13/2025/01/14/20 25 [id number] Ambulatory Building:[facility] EPIC 01/01/2025/01/02/20 25 [id number] Ambulatory Building:[facility]OM [facility] EPIC 12/19/2024/12/20/19 25 [id number] Ambulatory Building:[facility] EPIC 12/05/2024/12/06/19 25 [id number] Ambulatory Building:[facility] EPIC 11/30/2024/12/01/19 25 [id number] Ambulatory Building:[facility]OM [facility] EPIC 11/20/2024/11/21/19 25 [id number] Ambulatory Building:[facility] EPIC 11/13/2024/11/14/19 25 [id number] Ambulatory Building:[facility] EPIC 11/06/2024/11/07/19 25 [id number] Ambulatory Building:[facility] EPIC 10/23/2024/10/24/19 25 [id number] Ambulatory Building:[facility] EPIC 10/10/2024/10/11/19 25 [id number] Ambulatory Building:[facility] 09/23/2024/09/24/19 25 [id number] Ambulatory Building:[facility] 08/21/2024/08/22/19 25 [id number] Ambulatory Building:[facility] 08/19/2024/08/20/19 25 [id number] Ambulatory Building:[facility] 08/12/2024/08/13/19 25 [id number] Ambulatory Building:[facility] 07/17/2024/07/18/19 25 [id number] Ambulatory Building:[facility] 07/04/2024/07/04/19 [id number] [place] [address] 06/25/2024/06/25/19 25 [id number] Ambulatory Building:[facility] 06/17/2024/06/17/19 25 [id number] [facility] 06/17/2024/06/17/19 25 [id number] Ambulatory Building:NOM S [facility] 06/11/2024/06/11/19 25 [id number] Ambulatory Building:[facility] 06/10/2024/06/10/19 25 [id number] Ambulatory Building:[facility] 05/31/2024/05/31/19 25 [id number] Inpatient Encounter Building:PTH _PERIOP [facility] 05/31/2024/05/31/19 25 [id number] Inpatient Encounter Building:PTH _PERIOP [facility] 05/31/2024/05/31/19 25 [id number] MINNA CARRENO Inpatient Encounter Building:PTH _PERIOPRoom: POOL 1Bed: NONE [facility] 05/29/2024/05/29/19 25 [id number] Ambulatory Building:NOM S [facility] 05/20/2024/05/20/19 25 [id number] Ambulatory Building:[facility] 05/20/2024/05/20/19 25 [id number] Inpatient Encounter Building:PTH _EMETRPAT [facility] 05/09/2024/05/09/19 25 [id number] Ambulatory Building:[facility] 04/29/2024/04/29/20 24 [id number] Ambulatory [facility] [place]:EU Joshuam : CD:[id number] [facility] 04/23/2024/04/23/20 24 [id number] Ambulatory Building:[facility] 04/15/2024/04/15/20 24 [id number] Ambulatory Building:[facility] 04/11/2024 [id number] Ambulatory Building:Un k [facility] 04/09/2024/04/09/20 24 [id number] Ambulatory Building:[facility] 04/09/2024/04/09/20 24 [id number] Ambulatory Buildin A [facility] 03/20/2024/03/20/20 24 [id number] Ambulatory Building:[facility] 03/06/2024/03/06/20 24 [id number] Ambulatory Building:[facility] 03/05/2024/03/05/20 24 [id number] Ambulatory Building:[facility] 03/04/2024/03/04/20 24 [id number] Ambulatory Building:[facility] 02/28/2024/02/28/20 24 [id number] Ambulatory Building:[facility] 02/06/2024/02/06/20 24 [id number] Ambulatory Building:[facility] EPIC PAYERS ENCOUNTER GUARANTOR PAYER SUBSCRIBER SOURCE 02/04/2025 RAMIN MONTAGUE: [id number] [address] [address]Afb: (HP) (WP) Primary Insurance:BCBSPoli cy Number: [id number] akira Date:2023-05-08 RAMIN ROBBINSB: [id number] [address] [address] [facility] EPIC 01/27/2025 RAMIN ROBBINSB: [address] [address]Ygr: (HP) (WP) Primary Insurance:BCBSPoli cy Number: [id number] akira Date:2023-05-08 RAMIN LUQUEFEDERICOSTERLINGB: [id number] [address] [address] [facility] EPIC 01/27/2025 Rmain Houff[address] [address]Fwc: (HP) Primary Insurance:Self PayPolicy Number: Effective Date:2025-01-27 [facility] 01/20/2025 RAMIN ROBBINSB: [address] [address]Vkq: (HP) (WP) Primary Insurance:BCBSPoli cy Number: [id number] aikra Date:2023-05-08 RAMIN RICKSB: [id number] [address] [address] [facility] EPIC 01/13/2025 RAMIN RICKSB: [address] [address]Exo: (HP) (WP) Primary Insurance:BCBSPoli cy Number: [id number] akira Date:2023-05-08 RAMIN RICKSB: [id number] [address] [address] [facility] EPIC 01/01/2025 RAMINALTHEA RICKSDOB: [address] [address]Flk: (HP) (WP) Primary Insurance:BCBSPoli cy Number: [id number] akira Date:2023-05-08 RAMIN LUQUEFEDERICOSTERLINGB: [id number] [address] [facility] EPIC 12/19/2024 RAMIN RAMBODOB: [address] [address]Zpq: (HP) (WP) Primary Insurance:BCBSPoli cy Number: [id number] akira Date:2023-05-08 RAMIN ITZELB: [id number] [address] [address] [facility] EPIC 12/05/2024 RAMIN ITZELB: [address] [address]Wbf: (HP) (WP) Primary Insurance:BCBSPoli cy Number: [id number] akira Date:2023-05-08 RAMIN LUUQEZACARIASB: [id number] [address] [address] [facility] EPIC 11/30/2024 RAMIN ITZELB: [address] [address]Iwr: (HP) (WP) Primary Insurance:BCBSPoli cy Number: [id number] akira Date:2023-05-08 RAMIN LUQUEFEDERICOSTERLINGB: [id number] [address] [address] [facility] EPIC 11/20/2024 RAMIN ROBBINSB: [address] [address]Knq: (HP) (WP) Primary Insurance:BCBSPoli cy Number: [id number] akira Date:2023-05-08 RAMIN RICKSB: [id number] [address] [address] [facility] EPIC 11/13/2024 RAMIN ZAMORANOTALB: [address] [address]Qky: (HP) (WP) Primary Insurance:BCBSPoli cy Number: [id number] akira Date:2023-05-08 RAMIN ZAMORANOTALB: [id number] [address] [address] [facility] EPIC 11/06/2024 RAMIN MENZACARIASB: [address] [address]Kki: (HP) (WP) Primary Insurance:BCBSPoli cy Number: [id number] akira Date:2023-05-08 ARMIN RICKSB: [id number] [address] [facility] EPIC 10/23/2024 RAMIN MENZACARIASB: [address] [address]Pya: (HP) (WP) Primary Insurance:BCBSPoli cy Number: [id number] akira Date:2023-05-08 RAMIN RICKSB: [id number] [address] [facility] 10/10/2024 RAMIN ITZELB: [address] [address]Djh: (HP) (WP) Primary Insurance:BCBSPoli cy Number: [id number] akira Date:2023-05-08 RAMIN RICKSB: [id number] [address] [address] [facility] EPIC 09/23/2024 RAMIN LUQUEZACARIASB: [address] [address]Cyc: (HP) (WP) Primary Insurance:BCBSPoli cy Number: [id number] akira Date:2023-05-08 RAMIN ITZELB: [id number] [address] [address] [facility] EP[facility] 08/21/2024 RAMIN ITZELB: [address] [address]Lur: (HP) (WP) Primary Insurance:BCBSPoli cy Number: [id number] akira Date:2023-05-08 RAMIN LUQUEZACARIASB: [id number] [address] [facility] EPIC 08/19/2024 RAMIN ITZELB: [address] [address]Snm: (HP) (WP) Primary Insurance:BCBSPoli cy Number: [id number] akira Date:2023-05-08 RAMIN ITZELB: [id number] [address] [address] [facility] EPIC 08/12/2024 RAMIN ITZELB: [address] [address]Ulf: (HP) (WP) Primary Insurance:BCBSPoli cy Number: [id number] akira Date:2023-05-08 RAMIN ZAMORANOTALB: [id number] [address] [facility] EPIC 07/17/2024 RAMIN RICKSB: [address] [address]Tzf: (HP) (WP) Primary Insurance:BCBSPoli cy Number: [id number] akira Date:2023-05-08 RAMIN LUQUEZACARIASB: [id number] [address] [address] [facility] EPIC 07/04/2024 RAMIN L ITZELB: [address] [address]Npc: (HP) Primary Insurance:[facility] HMO/PPO/TRUSTPolic y Number: [id number] akira Date:2023-05-08 RAMIN LUQUEZACARIASB: [id number] [address] [address]Pta: (WP) [facility] 06/25/2024 RAMIN LUQUEEDYTADOB: [address] [address]Tob: (HP) (WP) Primary Insurance:BCBSPoli cy Number: [id number] akira Date:2023-05-08 RAMIN LUQUEZACARIASB: [id number] [address] [address] [facility] [facility] 06/17/2024 Ramin L Hetujun[address] [address]Hzu: (HP) Primary Insurance:Self PayPolicy Number: Effective Date:2024-06-17 [facility] RAMIN RICKSB: [address] [address]Vrs: (HP) (WP) Primary Insurance:BSPoli cy Number: [id number] akira Date:2023-05-08 RAMIN RICKSB: [id number] [address] [address] [facility] EPIC 06/11/2024 RAMIN LUQUEZACARIASB: [address] [address]Ptf: (HP) (WP) Primary Insurance:BSPol cy Number: [id number] akira Date:2023-05-08 RAMIN LUQUEZACARIASB: [id number] [address] [address] [facility] EPIC 06/10/2024 RAMIN LUQUEZACARIASB: [address] [address]Xmb: (HP) (WP) Primary Insurance:BSPol cy Number: [id number] akira Date:2023-05-08 RAMIN ZAMORANOTALB: [id number] [address] [address] [facility] EPIC 05/31/2024 RAMIN Joaquin ITZELB: [address] [address]Ylf: (HP) Primary Insurance:[facility] HMO/PPO/TRUSTPolic y Number: [id number] akira Date:2023-05-08 RAMIN Joaquin ITZELB: [id number] [address] [address]Rry: (WP) [facility] 05/31/2024 RAMIN LUQUEEDYTADOB: [address], [place] [address]Yxz: (HP) [facility]TRUSTPolic y Number: [id number] akira Date:2023-05-08 RAMIN LUQUEEDYTADOB: [id number] [address], [place] [address]Ynh: (WP) [facility] 05/31/2024 RAMIN LUQUEEDYTADOB: [address], [place] [address]Xyf: (HP) [facility]/TRUSTPolic y Number: [id number] akira Date:2023-05-08 RAMIN LUQUEEDYTADOB: [id number] [address], [place] [address]Uej: (WP) [facility] 05/29/2024 RAMIN LUQUEZACARIASB: [address] [address]Jvm: (HP) (WP) Primary Insurance:BCBSPoli cy Number: [id number] akira Date:2023-05-08 RAMIN ITZELB: [id number] [address] [address] [facility] EPIC 05/20/2024 RAMIN MENZACARIASB: [address] [address]Eqc: (HP) (WP) Primary Insurance:BCBSPoli cy Number: [id number] akira Date:2023-05-08 RAMIN LUQUEZACARIASB: [id number] [address] [address] [facility] EPIC 05/20/2024 RAMIN L ITZELB: [address] [address]Qzi: (HP) Primary Insurance:[place] H[place]/PPO/TRUSTPolic y Number: [id number] akira Date:2023-05-08 RAMIN RICKSB: [id number] [address] [place] [address]Ezy: (HP) (WP) [facility] 05/09/2024 RAMIN ZAMORANOTALB: [address] [address]Gsa: (HP) (WP) Primary Insurance:BCBSPoli cy Number: [id number] akira Date:2023-05-08 RAMIN ZAMORANOTALB: [id number] [address] [address] [facility] EPIC 04/29/2024 RAMIN LUQUEZACARIASB: [facility] 249Tel: ~~(41 (HP) Primary Insurance:AnthemPo licy Number: [id number] akira Date:[id number] [address]XZ: RAMIN LUQUEOTONIEL [facility] 04/23/2024 RAMIN LUQUEZACARIASB: [address] [address]Qrp: (HP) (WP) Primary Insurance:BCBSPoli cy Number: [id number] akira Date:2023-05-08 RAMIN ZAMORANOTALB: [id number] [address] [address] [facility] EPIC 04/15/2024 RAMIN MENZACARIASB: [address] [address]Wcs: (HP) (WP) Primary Insurance:BCBSPoli cy Number: [id number] akira Date:2023-05-08 RAMIN ZAMORANOTALB: [id number] [address] [address] [facility] 04/11/2024 RAMIN Joaquin ITZELB: [address] [address]Dun: (HP) Primary Insurance:BLUE ACCESS (PPO)Policy Number: [id number] akira Date:2018-05-082021-08-05 RAMIN LUQUEZACARIASB: [id number] [address] [place] [address]Iqz: (WP) [facility] 04/11/2024 Secondary Insurance:BLUE ACCESS (PPO)Policy Number: [id number] akira Date:2019-05-082024-04-06 RAMIN Joaquin ITZELB: [id number] [address] [place] [address]Hpy: (HP) (WP) [facility] 04/11/2024 Tertiary Insurance:[facility] HMO/PPO/TRUSTPolic y Number: [id number] akira Date:2023-05-08 RAMIN Joaquin ITZELB: [id number] [address] [place] [address]Fqh: (HP) (WP) [facility] 04/09/2024 RAMIN LUQUEZACARIASB: [address] [address]Ahg: (HP) (WP) Primary Insurance:BCBSPoli cy Number: [id number] akira Date:2023-05-08 RAMIN RICKSDOB: [id number] [address] [address] [facility] EPIC 04/09/2024 RAMIN RICKSDOB: [address] [place] [address]Uph: (HP) Primary Insurance:[facility] HMO/PPO/TRUSTPolic y Number: [id number] akira Date:2023-05-08 RAMIN RICKSDOB: [id number] [place] [address]Zjm: (HP) (WP) [facility] 03/20/2024 RAMIN ZAMORANOSTERLINGDOB: [address] [address]Bxr: (HP) (WP) Primary Insurance:BCBSPoli cy Number: [id number] akira Date:2023-05-08 RAMIN ZAMORANOTALB: [id number] [address] [address] [facility] EP[facility] 03/06/2024 RAMIN ZAMORANOSTERLINGDOB: [address] [address]Xeo: (HP) (WP) Primary Insurance:BCBSPoli cy Number: [id number] akira Date:2023-05-08 RAMIN LUQUEEDYTADOB: [id number] [address] [address] [facility] EP[facility] 03/05/2024 RAMIN MENEDYTADOB: [address] [address]Tpy: (HP) (WP) Primary Insurance:BCBSPoli cy Number: [id number] akira Date:2023-05-08 RAMIN RICKSDOB: [id number] [address] [address] [facility] 03/04/2024 RAMIN RICKSDOB: [address] [address]Sll: (HP) (WP) Primary Insurance:BCBSPoli cy Number: [id number] akira Date:2023-05-08 RAMIN RICKSB: [id number] [address] [address] [facility] 02/28/2024 RAMIN RICKSDOB: [address] [address]Ysx: (HP) (WP) Primary Insurance:BCBSPoli cy Number: [id number] akira Date:2023-05-08 RAMIN RICKSB: [id number] [address] [address] [facility] EP[facility] 02/06/2024 RAMIN RICKSB: [address] [address]Vly: (HP) (WP) Primary Insurance:BCBSPoli cy Number: [id number] akira Date:2023-05-08 RAMIN RICKSDOB: [id number] [address] [address] [facility]
--- NOTE | 2025-02-05 07:12 | CT_ITS ---
The [address] [address] Patient Name: MATT RICKS MRN: [id number] date: 1990 Sex: F Assigned Patient Location: CT Current Patient Location: CT Accession/Order Number: [id number] Exam Date: 02/05/2025 08:10 Report Date: 02/05/2025 10:27 At the request of: FRANCESCA CHAPMAN DO Procedure: CT abdomen pelvis wo/w con CT ABDOMEN AND PELVIS WITHOUT AND WITH INTRAVENOUS CONTRAST COMPARISON: 02/19/2024 CLINICAL DATA: Chronic worsening lower abdominal pain bilaterally. Spiral images were obtained through the abdomen and pelvis before and after intravenous administration of 100 mL of Omnipaque 300. Patient also received oral contrast. This CT exam was performed using one or more following dose reduction techniques: Automated exposure control, adjustment of the mA and/or kV according to patient size, or use of iterative reconstruction technique. Limited cuts through the lung bases show no contributory findings. The gallbladder is surgically absent. No intrahepatic masses are identified. The spleen, pancreas and adrenal glands show no acute findings. There are no renal, ureteral or bladder stones precontrast. Following contrast administration, the renal left mammograms are symmetric, without hydronephrosis. The abdominal aorta is normal caliber. Tiny lymph nodes are seen. There is no ascites. The left paraumbilical hernia at the time of the prior has been repaired. The small bowel loops are normal caliber. There is stool within the ascending and transverse colon. The left colon is not as well distended. There is slight levoscoliotic curvature and minor degenerative changes at the spine. Images through the pelvis show normal caliber small bowel loops. No appendiceal inflammation is seen. The distal colon is underdistended. No diverticular disease is noted. The uterus is slightly dextroverted. There is a small 2.2 cm right ovarian cyst. The urinary bladder is not well-distended however no CT abnormalities are seen. There is no ascites. CT/CT abdomen pelvis wo/w con IMPRESSION: NO BOWEL OR URINARY TRACT OBSTRUCTION. NO ACUTE FINDINGS. Impression dictated by: Mena Culver M.D. 02/05/2025 10:27 AM Dictation Location: [place] [address] Electronically authenticated by: [id number] Y Date: 02/05/2025 10:27
== END 2025-02-05 07:10 | disposition home or self-care (01) ==
LOC: CT 07:09
PROVIDERS: PCP Nurse Practitioner; Visit Provider Obstetrics & Gynecology
DX: R10.9 Unspecified abdominal pain (principal); R10.30 Lower abdominal pain, unspecified
CPT/HCPCS: 74178; Q9967